=== PATIENT | female | born 1965 | race Caucasian/White ===

== ENCOUNTER 2016-03-12 12:13 | Inpatient (IN) | payer MEDICARE, OTHER ==
[~2016-03-12] VITALS: Ht 162.6 cm; Wt 112.0 kg
[~2016-03-12 12:13] MED LIST: ACET-2047 GTB; AMIO200T2 GTB; BUME1TAB18 GTB; CEFE1FRO IV; DOCU-144 GTB; DULR PR; ENAL2.5T GTB; EPOE40002 SC; FLEETPED PR; FOLI-49 GTB; HEP30MU30 IJ; HYDR-906 GTB; LACT1CAP5 GTB; LEVEM SC; LEVO88TA3 GTB; LORA1TAB GTB; MAGN400O4 GTB; MULT-552 GTB; NOVO3I SC; PANT40TA3 GTB; POLY15DR42 BOTH EYES; SENN-53 GTB; TRAM-40 GTB
[2016-03-12] MEDS ORDERED: LISI2.5T59 GTB (12:42)
--- NOTE | 2016-03-12 13:19 | RADRPT ---
PROCEDURE: XR Chest AP portable CLINICAL INDICATION: Abdominal pain TECHNIQUE: An AP portable radiograph of the chest was submitted. COMPARISON: 01/04/2016 FINDINGS: Support Hardware: The tracheostomy tube remains in place. The right upper extremity PICC catheter is no longer identified. Cardiovascular: The ICD generator and leads are stable and positioning. The heart remains moderatel y enlarged and the pulmonary vasculature again appears congested. Lung Leyva: Alveolar infiltrates are again seen to extend diffusely through the lung leyva bilater ally with relative sparing of the right upper lobe, unchanged. Pleural Spaces: No pneumothorax or pleural effusion is identified. Osseous Structures: The osseous structures appear intact. Soft Tissues: The soft tissues appear generous. IMPRESSION: 1. The tracheostomy tube is stable in position on the right upper extremity PICC catheter has been removed. 2. The AICD generator and leads are stable in positioning. 3. Persistent cardiomegaly with CHF and pulmonary edema, unchanged. Physician Armond Date Time Electronically viewed and signed by Physician Armond on 03/12/2016 13:18 /
[2016-03-12 13:22] LABS: BASOPHILS % 0.2 % (0.0-2.0); EOSINOPHILS # 0.7 10^3/ul (0.0-0.5); EOSINOPHILS % 9.7 % (0.0-7.0); HEMATOCRIT 27.4 % (37.0-47.0); HEMOGLOBIN 8.9 g/dl (12.0-16.0); LYMPHOCYTES # 0.8 10^3/ul (0.8-2.9); LYMPHOCYTES % 10.6 % (15.0-51.0); MEAN CORPUSCULAR HEMOGLOBIN 29.2 pg (29.0-33.0); MEAN CORPUSCULAR HGB CONC 32.3 g/dl (32.0-37.0); MEAN CORPUSCULAR VOLUME 90.5 fl (82.0-101.0); MEAN PLATELET VOLUME 7.4 fl (7.4-10.4); MONOCYTE # 0.4 10^3/ul (0.3-0.9); MONOCYTES % 5.5 % (0.0-11.0); NEUTROPHIL # 5.4 10^3/ul (1.6-7.5); PLATELET COUNT 370 10^3/UL (140-440); RED BLOOD COUNT 3.03 10^6/ul (4.20-5.40); RED CELL DISTRIBUTION WIDTH 19.8 % (11.5-14.5); UNCORRECTED WBC 7.3 10^3/ul (4.8-10.8); WHITE BLOOD COUNT 7.3 10^3/ul (4.8-10.8)
[2016-03-12 13:28] LABS: ALBUMIN 3.1 g/dl (3.3-4.9); CHLORIDE 89 mmol/L (97-110); SODIUM 133 mmol/L (135-144)
[2016-03-12 13:29] LABS: POTASSIUM 5.4 mmol/L (3.5-5.1)
[2016-03-12 13:30] LABS: CREATININE 0.55 mg/dl (0.44-1.00)
[2016-03-12] MEDS ORDERED: FUROSEMIDE 40 MG INJ IV ONE ×2 (13:30→23:50)
[2016-03-12 13:31] LABS: ALANINE AMINOTRANSFERASE 17 IU/L (13-69); ALBUMIN/GLOBULIN RATIO 0.68; ALKALINE PHOSPHATASE 130 IU/L (42-121); ANION GAP 13 (8-16); ASPARTATE AMINO TRANSFERASE 25 IU/L (15-46); BILIRUBIN,INDIRECT 0.2 mg/dl (0-1.1); BILIRUBIN,TOTAL 0.2 mg/dl (0.2-1.3); BLOOD UREA NITROGEN 82 mg/dl (7-20); CALCIUM 9.1 mg/dl (8.4-10.2); CARBON DIOXIDE 36 mmol/L (21-31); GLUCOSE 125 mg/dl (70-220); TOTAL PROTEIN 7.6 g/dl (6.1-8.1)
[2016-03-12 13:35] LABS: CONDITION 1; LH ANALYZER COMMENTS 1
[2016-03-12 13:38] LABS: INR 1.16; PROTIME 14.8 Sec (12.2-14.2); PT RATIO 1.2
[2016-03-12 13:52] LABS: TROPONIN-I < 0.012 ng/ml (0.00-0.12)
[2016-03-12] MEDS ORDERED: FUROSEMIDE 20 MG TAB PO ONE (14:00)
--- NOTE | 2016-03-12 14:55 | RADRPT ---
PROCEDURE: US Abdomen limited . CLINICAL INDICATION: Ascites TECHNIQUE: Multiple real-time images were acquired of the patient's abdomen utilizing a high resol ution transducer. COMPARISON: Ultrasound-guided paracentesis from 01/01/2016 FINDINGS: There is a small amount of ascites, not enough for paracentesis. RPTAT: AA IMPRESSION: Small amount of ascites. Shamar Hernandez Physician Date Time Electronically viewed and signed by Shamar Hernandez Physician on 03/12/2016 14:55 /
[2016-03-12 15:20] LABS: BARBITURATES NEGATIVE (NEGATIVE); BENZODIAZEPINES NEGATIVE (NEGATIVE); CANNABINOIDS NEGATIVE (NEGATIVE); COCAINE NEGATIVE (NEGATIVE); OPIATES NEGATIVE (NEGATIVE)
[2016-03-12] MEDS ORDERED: LIDOCAINE 1% (MPF) 5 ML VIAL ONE (15:44)
--- NOTE | 2016-03-12 15:49 | RADRPT ---
PROCEDURE: Ultrasound guided paracentesis. CLINICAL INDICATION: Ascites and shortness of breath. COMPARISON: No prior studies are available for comparison. TECHNIQUE: The risks, benefits, and alternatives were explained to the patient, including but not limited to bl eeding, infection, pain, visceral or vascular damage, shock, and . The patient understood the risks and the alternatives and wished to proceed with the procedure. Informed written consent was o btained. A procedural time out was performed. The patient's name, date of , and procedure to b e performed were verified. Utilizing ultrasound guidance, optimal location for entry to the peritoneal cavity was ascertained. The overlying skin was prepped and draped in the usual sterile fashion. Approximately 10 ml of 1% Xylocaine was injected locally for pain control. Using ultrasound guidance, an 8 Yoruba catheter wa s introduced into the peritoneal cavity in the left lower quadrant without difficulty. FINDINGS: Initial images demonstrate ascites. Approximately 5.75 liters of serous fluid was aspirated and dis carded. The patient tolerated the procedure well without complication. IMPRESSION: 1. Successful ultrasound-guided paracentesis. RPTAT: QQ .Nehemias Garcia MD, Date Time Electronically viewed and signed by .Nehemias Garcia MD, MD on 03/12/2016 15:48 .R/
[2016-03-12] MEDS ORDERED: SOD CHLORIDE 0.9% 500 ML IV ONE (18:00)
--- NOTE | 2016-03-12 18:36 | ERA ---
ER Documentation Chief Complaint Date/Time DATE: 03/12/16 TIME: 18:15 Chief Complaint BIB BLS FOR ASCITES HPI 50-year-old woman brought in by EMS from [facility] for increasing abdominal distention. I spoke to the patient's PMD Dr. Bakari Ortiz who stated she has been losing protein and albumin and has been slowly developing anasarca and ascites, and will probably require paracentesis. He has also been administering larger doses of furosemide to help with her ascites so she has become somewhat dehydrated and has had increasing BUN levels she has a history of mechanical ventilator dependent chronic respiratory failure with a tracheostomy tube. She has had no fevers or chills, no chest pain, no vomiting or diarrhea, no melena or blood per rectum. ROS All systems reviewed and are negative except as per history of present illness. Medications Home Meds Reported Medications Lisinopril* (Lisinopril*) 2.5 Mg Tablet, 2.5 MG GTB BID, #30 TAB HOLD FOR SBP<110 OR HR<60 03/12/16 Sennosides* (Senna Lax*) 8.6 Mg Tablet, 2 TAB GTB QHS, TAB 01/04/16 Acetaminophen* (Acetaminophen*) 650 Mg Tablet, 650 MG GTB Q4 Y for PAIN AND OR ELEVATED TEMP, #30 TAB 01/04/16 Tramadol Hcl* (Ultram*) 50 Mg Tablet, 50 MG GTB Q4 Y for PAIN, TAB 01/04/16 Insulin Detemir (Levemir) 100 Unit/1 Ml Vial, 18 UNIT SC QHS, VIAL 01/04/16 Insulin Aspart* (Novolog Insulin Pen*) 100 Unit/Ml Soln, 0 SC .SLIDING SCALE Q6 , EA 01/04/16 Pantoprazole* (Protonix*) 40 Mg Tablet.dr, 40 MG GTB DAILY, TAB 01/04/16 Levothyroxine Sodium* (Levothyroxine Sodium*) 88 Mcg Tablet, 88 MCG GTB BEFORE BREAKFAST, #30 TAB 01/04/16 Lactobacillus Acidophilus (Acidophilus) 1 Each Capsule, 1 EACH GTB BID, CAP 01/04/16 Bumetanide* (Bumetanide*) 1 Mg Tablet, 1 MG GTB BID, TAB 01/04/16 Docusate Sodium* (Colace*) 100 Mg Capsule, 200 MG GTB QHS Y for CONSTIPATION, # 30 CAP 12/28/15 Bisacodyl* (Bisacodyl*) 10 Mg Supp, 10 MG GA Q24H Y for PRN, SUPP 12/28/15 Sod Phosphate/Sod Biphosphate* (Fleet* Enema Pediatric) 66.6 Ml Soln, 66.6 ML GA DAILY Y for CONSTIPATION, ENEMA 12/28/15 Folic Acid* (Folic Acid*) 1 Mg Tablet, 1 MG GTB DAILY, TAB 12/28/15 Magnesium Hydroxide* (Milk Of Magnesia*) 400 Mg/5 Ml Oral.susp, 30 ML GTB DAILY Y for CONSTIPATION, ML HOLD FOR LBM QDPRN 12/28/15 Hydrocodone/Acetaminophen ([place] 5-325 Tablet) 1 Each Tablet, 1 EACH GTB Q6 Y for PAIN LEVEL 6-10, TAB 12/28/15 Heparin Sod (Porcine) (Heparin) 1,000 Unit/Ml Soln, 5000 UNIT IJ Q12 11/15/15 Epoetin sophie* (Epogen*) 4,000 Unit/1 Ml Vial, 5000 UNIT SC [place]WEDFRI, VIAL HOLD FOR HGB ABOVE 10.5 10/30/15 Amiodarone Hcl* (Amiodarone Hcl*) 200 Mg Tablet, 200 MG GTB DAILY, #30 TAB HOLD FOR SBP<110 OR HR<60 10/30/15 Artificial Tears* (Artificial Tears* Ophth) 15 ml Opht, 2 DROP BOTH EYES Q4H WHILE AWAKE Y for DRY EYES, EA 03/05/15 Lorazepam* (Lorazepam*) 1 Mg Tablet, 1 MG GTB Q8 Y for ANXIETY, #60 TAB 03/05/15 Multivitamins* (Once Daily*) 1 Tab Tablet, 1 TAB GTB DAILY, TAB 08/14/14 Discontinued Reported Medications Enalapril Maleate* (Enalapril Maleate*) 2.5 Mg Tablet, 2.5 MG GTB DAILY, TAB HOLD FOR SBP<100 OR HR<60 10/30/15 Discontinued Scripts Cefepime Hcl/Dextrose, Iso-Osm (Cefepime 1 Gm Injection) 1 Gm/50 Ml Froz.piggy, 1 GM IV Q12 for 14 Days Prov:SOUZASHONDA MATHUR NP 01/03/16 Allergies Allergies: Coded Allergies: No Known Allergies (Verified Allergy, Unknown, 12/28/15) PMhx/Soc Atrial fibrillation, diabetes mellitus, hypertension, pacemaker, congestive heart failure with a left ventricular ejection fraction of 25%, hypothyroidism, diffuse muscular weakness and bedbound state, anemia, recurrent UTIs, muscular dystrophy, chronic respiratory failure requiring mechanical ventilator and tracheostomy History of Surgery: Yes (trach g- tube) Anesthesia Reaction: No Hx Neurological Disorder: Yes Hx Respiratory Disorders: Yes (trach to vent, pna) Hx Cardiac Disorders: Yes (angina, htn, cad, heart fail) Hx Psychiatric Problems: Yes (anxiety) Hx Miscellaneous Medical Probl: Yes (dm, GERD, gastroperesis, muscular dystrophy) Hx Alcohol Use: No Hx Substance Use: No Hx Tobacco Use: No Smoking Status: Never smoker FmHx Family History: No diabetes Physical Exam Vitals Vital Signs Date Time Temp Pulse Resp B/P Pulse Ox O2 Delivery O2 Flow Rate FiO2 03/12/16 17:47 18 91/61 Mechanical Ventilator 03/12/16 17:15 76 21 99 40 03/12/16 15:10 75 21 100 40 03/12/16 12:31 97.8 60 18 96/62 100 03/12/16 12:30 59 21 97 40 Physical Exam GENERAL: Well-developed, dehydrated appearing woman with a tracheostomy in place , afebrile HEENT: Dry mucous membranes, pink conjunctiva, no cervical spine tenderness or step-off deformities, no goiter, no jaundice or icterus, extraocular movements intact without pain. No submandibular induration, and no pharyngeal erythema NEURO: Alert and oriented 3, she has paresis of the lower extremities and left upper extremity paralysis, no facial asymmetry, pupils equal round reactive to light. Sensation intact distally Strength 5/5 in upper and lower extremities bilaterally. Able to answer simple questions and follow simple commands CARDIAC: Regular rate and rhythm, no murmurs rubs or gallops LUNGS: Clear bilaterally no wheezing crackles or stridor ABDOMEN: Distended protuberant abdomen without guarding, rigidity, or tenderness. Normoactive bowel sounds SKIN: Warm and dry to touch, no abrasions, contusions, or hematomas, no lacerations, no ecchymosis, no target lesions, and without ulcers EXTREMITIES: Patient has bilateral lower extremity 3+ pitting edema as well as anasarca, calves are bilaterally symmetrical, no Homans sign, no popliteal cord sign. Distal pulses equal and bilateral PSYCH: Normal affect without agitation or irritability Result Diagram: 03/12/16 1310 03/12/16 1258 Results 24 hrs Laboratory Tests Test 03/12/16 12:58 03/12/16 13:10 03/12/16 14:10 Alanine Aminotransferase (ALT/SGPT) 17IU/L Albumin 3.1g/dl Albumin/Globulin Ratio 0.68 Alkaline Phosphatase 130IU/L Anion Gap 13 Aspartate Amino Transf (AST/SGOT) 25IU/L Blood Urea Nitrogen 82mg/dl Calcium Level 9.1mg/dl Carbon Dioxide Level 36mmol/L Chloride Level 89mmol/L Creatinine 0.55mg/dl Direct Bilirubin 0.00mg/dl Globulin 4.50g/dl Glucose Level 125mg/dl Indirect Bilirubin 0.2mg/dl Lipase 56U/L Potassium Level 5.4mmol/L Sodium Level 133mmol/L Total Bilirubin 0.2mg/dl Total Protein 7.6g/dl Troponin I < 0.012ng/ml Basophils # 0.010^3/ul Basophils % 0.2% Blood Morphology Comment Eosinophils # 0.710^3/ul Eosinophils % 9.7% Hematocrit 27.4% Hemoglobin 8.9g/dl INR International Normalized Ratio 1.16 Lymphocytes # 0.810^3/ul Lymphocytes % 10.6% Mean Corpuscular Hemoglobin 29.2pg Mean Corpuscular Hemoglobin Concent 32.3g/dl Mean Corpuscular Volume 90.5fl Mean Platelet Volume 7.4fl Monocytes # 0.410^3/ul Monocytes % 5.5% Neutrophils # 5.410^3/ul Neutrophils % 74.0% Nucleated Red Blood Cells # 0.010^3/ul Nucleated Red Blood Cells % 0.0/100WBC Platelet Count 45164^3/UL Prothrombin Time 14.8Sec Prothrombin Time Ratio 1.2 Red Blood Count 3.0310^6/ul Red Cell Distribution Width 19.8% White Blood Count 7.310^3/ul Urine Amphetamines Screen NEGATIVE Urine Barbiturates NEGATIVE Urine Benzodiazepines Screen NEGATIVE Urine Cannabinoids NEGATIVE Urine Cocaine Screen NEGATIVE Urine Opiates Screen NEGATIVE Current Medications Medications (Trade) Dose Ordered Sig/Joseph Route PRN Reason Start Time Stop Time Status Last Admin Dose Admin Furosemide (Lasix) 80 mg ONCE ONCE IV 03/12/16 13:30 03/12/16 13:39 DC Furosemide (Lasix) 80 mg ONCE ONCE PO 03/12/16 14:00 03/12/16 14:01 DC 03/12/16 13:54 Lidocaine 5 ml 5 ml STK-MED ONCE .ROUTE 03/12/16 15:44 03/12/16 15:45 DC Sodium Chloride (NS) 500 ml @ 500 mls/hr Q1H ONCE IV 03/12/16 18:00 03/12/16 18:59 03/12/16 17:50 Procedures/MDM IV line was established patient was placed on director of diagnostic imaging rhythm strip revealed a paced rhythm at 60 bpm, wide complex. Patient was afebrile. For abdominal distention and anasarca I administered furosemide 80 mg p.o. 1 view chest x-ray performed, read by me there is cardiomegaly with a pacemaker placed in the left chest, leads intact, bilateral pulmonary vascular congestion , no acute infiltrates, no pneumothorax. EKG performed, read by me revealed a paced wide complex rhythm at 60 bpm, left axis deviation, with a prolonged QT interval of 502 ms, no concerning ST elevations or depressions noted. Ultrasound-guided paracentesis was performed removing about 6 L of fluid. Ultrasound-guided PICC line placement was attempted in the right upper extremity but unsuccessful. Small peripheral line was placed to the left hand. I administered 500 cc normal saline intravenously for dehydration, although further transfusion with albumin and more IV fluids for dehydration will be deferred to inpatient team. CBC revealed anemia with a hemoglobin of 8.9, electrolytes were abnormal with hyperkalemia 5.4 and dehydration revealing a BUN/creatinine of 82/0.6, liver function tests revealed low albumin at 3.1. Critical Care: Time: 40 minutes, this was time separate from other procedures. Treatments/Evaluations: Close monitoring and treatment of unstable vital signs, cardiorespiratory, and neurologic status, while maintaining tight balance of fluid, respiratory, and cardiac interventions. Patient will be admitted for gentle IV hydration and intravenous replacement of protein/albumin. I also suspect congestive heart failure which is decompensated at this time. Departure Diagnosis: Primary Impression: CHF (congestive heart failure) Qualified Code: I50.21 - Acute systolic congestive heart failure Additional Impressions: Hypoalbuminemia Dehydration Respiratory failure Qualified Code: J96.01 - Acute respiratory failure with hypoxia and hypercapnia Anasarca Hyperkalemia Ascites Qualified Code: R18.8 - Other ascites Condition: Fair JAIR CLARK MD Mar 12, 2016 18:26
[2016-03-12] MEDS ORDERED: ACETAMINOPHEN 650MG/20.3ML CUP GTB PRN (20:00)
[2016-03-12] MEDS ORDERED: ONDANSETRON 4 MG INJ IV PRN (20:00)
[2016-03-12] MEDS ORDERED: BISACODYL 10 MG SUPP PR PRN (20:00)
[2016-03-12] MEDS ORDERED: morphine 2 MG INJ IV PRN (20:00)
[2016-03-12] MEDS ORDERED: NA PHOSPHATE/BIPHOS 66.6 ML ENEMA PR PRN (20:00)
[2016-03-12] MEDS ORDERED: traMADol 50 MG TAB GTB PRN (20:00)
[2016-03-12] MEDS ORDERED: MAGNESIUM HYDROXIDE 30ML CUP GTB PRN (20:00)
[2016-03-12] MEDS ORDERED: LORAZEPAM 1 MG TAB GTB PRN (20:00)
[2016-03-12] MEDS ORDERED: HYDROCODONE/APAP (5/325) TAB GTB PRN (20:00)
[2016-03-12] MEDS ORDERED: ARTIFICIAL TEARS 15 ML OPH BOTH EYES PRN (20:00)
[2016-03-12] MEDS ORDERED: DOCUSATE SODIUM 10 MG/ML (10ML CUP) GTB PRN (20:00)
[2016-03-12] MEDS ORDERED: NACL 0.9% 3 ML SYG IV SCH (20:00)
[2016-03-12] MEDS ORDERED: HEPARIN 1000 UNITS/ML 30 ML INJ SC SCH (21:00)
--- NOTE | 2016-03-12 21:34 | RADRPT ---
PROCEDURE: Chest x-ray CLINICAL INDICATION: PICC LINE PLACEMENT TECHNIQUE: Single frontal view COMPARISON: 03/12/2016 at 01:03 p.m. FINDINGS: The cardiomediastinal silhouette is partially obscured. There is extensive bilateral interstitial t hickening and patchy air space opacification. There is a left chest pacemaker AICD. There is a tra cheostomy in place. There is a right PICC line with the tip partially obscured by overlying pacemak er wires, appearing to extend to or slightly past the cavoatrial junction region. There are probabl e small bilateral pleural effusions. There is no pneumothorax. Osseous structures appear unremarkable. IMPRESSION: 1. Extensive bilateral pulmonary edema and/or infiltrates. The appearance is similar from prior ex amination. Probable small bilateral pleural effusions. 2. Tracheostomy and left pacemaker AICD in place. A right PICC line is placed, which appears to ex tend to or just past the cavoatrial junction.. RPTAT: HBST .Ayaan Sanders MD, MD Date Time Electronically viewed and signed by .Ayaan Sanders MD, on 03/12/2016 21:34 .T/
--- NOTE | 2016-03-12 21:59 | HP ---
DATE OF ADMISSION: 03/12/2016 PROFESSOR OF GENETICS: Liam Calixto MD/[employer]. CHIEF COMPLAINT: Abdominal distention and ascites. HISTORY OF PRESENT ILLNESS: This is a 50-year-old female, who is known to me from her previous hosp italization with a past medical history of quadriplegia, vent-dependent respiratory failure, anemia, ascites, dysphagia status post PEG tube feeding, hypertension, muscular dystrophy, anxiety, diabete s mellitus, GERD, cardiomyopathy, ejection fraction 30% to 35%, who resides at a [facility], and was found to have abdominal discomfort and distention, and therefore was transferred to [facility] where abdominal ultrasound was obtained, which showed there was a small amount of ascites; not enough for paracentesis. The patient was found to have albumin 3.1, so dium 133, potassium 5.4, chloride 89, and she is being admitted for diuresis and abdominal distentio n. At this time, the patient denies having any chest pain, shortness of breath, or any other discom fort. PAST MEDICAL AND SURGICAL HISTORY: As above per HPI. MEDICATIONS 1. Tylenol. 2. Amiodarone 3. Bisacodyl. 4. Bumex. 5. Colace. 6. Epogen. 7. Artificial tears. 8. Folic acid. 9. Procrit. 10. Rocklin. 11. NovoLog. 12. Levemir. 13. Probiotic. 14. Levothyroxine. 15. Lisinopril. 16. Lorazepam 17. Milk of magnesia. 18. Multivitamin. 19. Protonix. 10. Senna. 11. Fleet's enema. 12. Tramadol. ALLERGIES: NO KNOWN DRUG ALLERGIES. FAMILY HISTORY: Noncontributory. SOCIAL HISTORY: She resides at a long term [facility]. REVIEW OF SYSTEMS: As above per HPI, otherwise 12 review of systems have been found to be negative. PHYSICAL EXAMINATION: VITAL SIGNS: Temperature 97.8, pulse 60, respirations 12, blood pressure 103/71, oxygen 100% in yash m air. GENERAL APPEARANCE: Patient is lying in bed comfortably without any distress. She is awake, alert, oriented. She is able to answer my questions by nodding her head. EYES AND ENT: Conjunctivae and lids are normal. Pupils are normal. Extraocular normal. Hearing g rossly normal. Oral mucosa is dry. NECK: Supple. Trach in place. CARDIOVASCULAR: Normal S1, S2. Regular rhythm and rate. No murmur, no bruits, no edema. LUNGS: Decreased breath sounds, bilateral lower lung field. ABDOMEN: Contour is distended. No sign of ascites. Bowel sounds are distant secondary to body hab itus. No guarding, no rebound. GENITOURINARY: Deferred. MUSCULOSKELETAL: Right lower extremity is flaccid. Upper extremities: The patient is 3/5. NEUROLOGIC: The patient is awake, alert. LABORATORY WORK AND IMAGING: WBC 7.3, hemoglobin 8.9, hematocrit 27.4, platelets 370,000. Sodium 1 33, potassium 5.4, chloride 89, bicarbonate 36, BUN 82, creatinine 0.55, glucose 125. LFTs all with in normal limits. ASSESSMENT AND PLAN: 1. Abdominal distention with questionable ascites, with minimal evidence of ascites on abdominal ul trasound. No plan for paracentesis. 2. Vent-dependent respiratory failure. Continue vent management, breathing treatment. 3. Anemia. Continue to monitor. Continue ferrous sulfate. 4. Anxiety. Continue lorazepam. 5. Essential hypertension. Continue lisinopril. 6. Gastroesophageal reflux disease. Continue PPI. 7. Hypothyroidism. Continue levothyroxine. 8. Diabetes mellitus. Continue Insulin sliding scale and Levemir. DISPOSITION: PEG tube feeding via diabetic source. We will continue to monitor patient closely. F urther recommendations, management, and treatment as per clinical course. Total amount of time was spent for evaluation of patient and admission workup, 40 minutes. Dictated By: OBI JIM/BETTY Conf#: [id number] DID#: [id number]
[2016-03-12 22:05] VITALS: RESP 19
[2016-03-12 22:10] VITALS: PULSE 59
[2016-03-12 22:34] VITALS: Ht 162.6 cm; Wt 112.0 kg
[2016-03-12 22:43] VITALS: BP 140/75; PULSE 70; RESP 20
[2016-03-12 23:27] VITALS: BP 92/54; RESP 20
[2016-03-13] VITALS (24 sets, daily range): BP systolic 90–103; BP diastolic 42–61; PULSE 59–65; RESP 18–20
[2016-03-13] MEDS ORDERED: DEXTROSE 50% 50 ML SYRINGE IV PRN ×2 (00:30)
[2016-03-13] MEDS ORDERED: GLUCAGON 1 MG INJ IM PRN (00:30)
[2016-03-13] MEDS ORDERED: GLUCOSE GEL 15 GRAM TUBE BUCCAL PRN (00:30)
[2016-03-13] MEDS ORDERED: GLUCOSE GEL 15 GRAM TUBE PO PRN ×2 (00:30)
[2016-03-13] MEDS: SENNA TAB GTB SCH ×2 (00:48→20:54)
[2016-03-13] MEDS: LISINOPRIL 5 MG TAB GTB SCH ×3 (00:49→20:54)
[2016-03-13] MEDS: INSULIN ASPART [NOVOLOG] 3 ML PEN SC SCH ×6 (00:54→21:00)
[2016-03-13] MEDS: ALBUMIN HUMAN 5% 250 ML IV SCH ×3 (01:28→13:29)
[2016-03-13] MEDS: INSULIN DETEMIR [LEVEMIR] 3ML CART SC SCH ×2 (01:29→20:57)
[2016-03-13] MEDS ORDERED: FUROSEMIDE 20 MG TAB PO SCH (06:00)
[2016-03-13] MEDS: LEVOTHYROXINE 88 MCG TAB GTB SCH (06:03)
[2016-03-13] MEDS: LANSOPRAZOLE 30 MG CAP GTB SCH (06:03)
[2016-03-13] MEDS: BUMETANIDE 1 MG TAB GTB SCH ×2 (06:03→18:42)
--- NOTE | 2016-03-13 08:04 | RADRPT ---
PROCEDURE: Ultrasound guidance for placement of needle in right upper extremity vein. CLINICAL INDICATION: PICC placement. TECHNIQUE: Limited sonography of the right upper extremity was performed. Ultrasound images were recorded and s tored in the patient's medical record. COMPARISON: Chest radiograph of the same day. FINDINGS: The ultrasound images demonstrate a patent right upper extremity vein. The PICC line was inserted by the PICC line nurse. IMPRESSION: 1. Ultrasound guidance for a needle placement in a right upper extremity vein. 2. The visualized right upper extremity vein is patent. RPTAT: UU .Sharif Iqbal MD, Date Time Electronically viewed and signed by .Sharif Iqbal MD, on 03/13/2016 08:03 .N/
[2016-03-13] MEDS: AMIODARONE 200 MG TAB GTB SCH (09:00)
[2016-03-13] MEDS: FOLIC ACID 1 MG TAB GTB SCH (09:34)
[2016-03-13] MEDS: LACTOBACILLUS CHEW TAB GTB SCH ×2 (09:34→20:54)
[2016-03-13] MEDS: MULTIVITAMINS THERAPEUTIC TAB GTB SCH (09:34)
[2016-03-13] MEDS: HEPARIN 5,000 UNIT/0.5 ML SYG SC SCH ×2 (09:49→20:57)
[2016-03-13] MEDS ORDERED: SOD CHLORIDE 0.9% 100 ML ONE (11:23)
--- NOTE | 2016-03-13 13:21 | CONS ---
Date/Time of Note Date/Time of Note DATE: 03/13/16 TIME: 13:20 Assessment/Plan Assessment/Plan Additional Assessment/Plan 50 yo Female with 1)Volume Overload, Anasarca, Ascites, S/p Large Volume Paracentesis 2) VDRF Hx of Tracheostomy 3) Combined Systolic and Diastolic Heart Failure, EF 30-35%, Hx of AICD 4) Mild Hyperkalemia 5) Mild Hyponatremia 6) Chronic Hypertension 7) Hypoalbuminemia 8) Pre- Renal Azotemia, Non oliguric 9) Anemia, Chronic Disease. Consultation Date/Type/Reason Admit Date/Time Mar 12, 2016 at 17:47 Date of Consultation: Mar 13, 2016 Type of Consultation: Nephrology Reason for Consultation Hyperkalemia, Volume Overload Referring Provider: OBI PEREZ MD Hx of Present Illness 50-year-old female with past medical history of quadriplegia, vent-dependent respiratory failure, anemia, ascites, dysphagia status post PEG tube feeding, Chronic hypertension, muscular dystrophy, anxiety, diabetes mellitus, GERD, cardiomyopathy, ejection fraction 30% to 35%, Volume Overload, Protein Calorie malnutrition, presenting from [facility] and found to have abdominal discomfort and distention. Pt is S/p Large Volume paracentensis on , approx 5.7 liters removed. Nephrology consulted by primary care physician for volume overload and hyperkalemia, Serum Potassium level 5.4. Constitutional: requiring O2 Respiratory: shortness of breath Cardiovascular: edema Past Medical History MEDICATIONS 1. Tylenol. 2. Amiodarone 3. Bisacodyl. 4. Bumex. 5. Colace. 6. Epogen. 7. Artificial tears. 8. Folic acid. 9. Procrit. 10. [place]. 11. NovoLog. 12. Levemir. 13. Probiotic. 14. Levothyroxine. 15. Lisinopril. 16. Lorazepam 17. Milk of magnesia. 18. Multivitamin. 19. Protonix. 10. Senna. 11. Fleet's enema. 12. Tramadol. ALLERGIES: NO KNOWN DRUG ALLERGIES. Medical History: congestive heart failure Past Surgical History Past Surgical Hx: other (Trach) Family History Significant Family History: no pertinent family hx Social History Alcohol Use: none Smoking Status: Never smoker Drug Use: none Exam/Review of Systems Vital Signs Vitals Vital Signs Date Time Temp Pulse Resp B/P Pulse Ox O2 Delivery O2 Flow Rate FiO2 03/13/16 12:45 59 03/13/16 11:15 18 100 35 03/13/16 11:02 98.5 94/50 03/12/16 22:43 Mechanical Ventilator Intake and Output 03/12/16 03/12/16 03/13/16 14:59 22:59 06:59 Intake Total 750 ml Output Total 4000 ml Balance -3250 ml Exam Constitutional: alert, oriented, No distress Head: normocephalic Eyes: EOMI, No icteric ENMT: mucosa pink and moist, other (Trach to vent) Neck: jvd Respiratory: crackles/rales, No diminished breath sounds, No labored breathing Cardiovascular: edema, regular rate and rhythm Gastrointestinal: ascites, soft, No rebound or guarding, No tender Genitourinary - Female: other (Matthew) Extremities: pitting pedal edema Neurological: nl mental status, No confused, No lethargic Skin: No diaphoresis Results PROCEDURE: XR Chest AP portable CLINICAL INDICATION: Abdominal pain TECHNIQUE: An AP portable radiograph of the chest was submitted. COMPARISON: 01/04/2016 FINDINGS: Support Hardware: The tracheostomy tube remains in place. The right upper extremity PICC catheter is no longer identified. Cardiovascular: The ICD generator and leads are stable and positioning. The heart remains moderately enlarged and the pulmonary vasculature again appears congested. Lung Pryor: Alveolar infiltrates are again seen to extend diffusely through the lung pryor bilaterally with relative sparing of the right upper lobe, unchanged. Pleural Spaces: No pneumothorax or pleural effusion is identified. Osseous Structures: The osseous structures appear intact. Soft Tissues: The soft tissues appear generous. IMPRESSION: 1. The tracheostomy tube is stable in position on the right upper extremity PICC catheter has been removed. 2. The AICD generator and leads are stable in positioning. 3. Persistent cardiomegaly with CHF and pulmonary edema, unchanged. Physician Armond Date Time Electronically viewed and signed by Physician Armond on 03/12/2016 13:18 Result Diagram: 03/12/16 1310 03/12/16 1258 Results 24 hrs Laboratory Tests Test 03/12/16 14:10 03/12/16 19:00 03/13/16 00:45 03/13/16 04:43 Urine Amphetamines Screen NEGATIVE Urine Barbiturates NEGATIVE Urine Benzodiazepines Screen NEGATIVE Urine Cannabinoids NEGATIVE Urine Cocaine Screen NEGATIVE Urine Opiates Screen NEGATIVE Ammonia 22 Bedside Glucose 116 83 Test 03/13/16 08:21 03/13/16 12:49 Bedside Glucose 73 74 Medications Medications Current Medications Acetaminophen (Tylenol Liquid) 650 mg Q4 PRN GTB PAIN AND OR ELEVATED TEMP; Start 03/12/16 at 20:00 Amiodarone HCl (Cordarone) 200 mg DAILY GTB ; Start 03/13/16 at 09:00 Bisacodyl (Dulcolax Supp) 10 mg Q24H PRN [place] PRN; Start 03/12/16 at 20:00 Docusate Sodium (Colace Liquid Cup) 200 mg QHS PRN GTB CONSTIPATION; Start at 20:00 Folic Acid (Folic Acid) 1 mg DAILY GTB Last administered on 03/13/16 09:34; Admin Dose 1 MG; Start 03/13/16 at 09:00 Acetaminophen/ Hydrocodone Bitart ([place] (5/325)) 1 tab Q6 PRN GTB PAIN LEVEL 6 -10; Start 03/12/16 at 20:00 Lisinopril (Zestril) 2.5 mg BID GTB Last administered on 03/13/16 00:49; Admin Dose 2.5 MG; Start 03/12/16 at 23:45 Lorazepam (Ativan) 1 mg Q8 PRN GTB ANXIETY; Start 03/12/16 at 20:00 Magnesium Hydroxide (Milk Of Mag) 30 ml DAILY PRN GTB CONSTIPATION; Start 03/12 at 20:00 Multivitamins Therapeutic (Theragran) 1 tab DAILY GTB Last administered on 03/13 09:34; Admin Dose 1 TAB; Start 03/13/16 at 09:00 Lansoprazole (Prevacid) 30 mg DAILY@06 GTB Last administered on 03/13/16 06:03 ; Admin Dose 30 MG; Start 03/13/16 at 06:00 Senna (Senokot) 2 tab QHS GTB Last administered on 03/13/16 00:48; Admin Dose 2 TAB; Start 03/12/16 at 21:00 Sodium Biphosphate/ Sodium Phosphate (Fleet Enema Pediatric) 66.6 ml DAILY PRN [place] CONSTIPATION; Start 03/12/16 at 20:00 Tramadol HCl (Ultram) 50 mg Q4H PRN GTB PAIN; Start 03/12/16 at 20:00 Insulin Detemir (Levemir) 18 unit QHS SC Last administered on 03/13/16 01:29; Admin Dose 18 UNIT; Start 03/13/16 at 00:30 Lactobacillus Acidoph/Bulgaricus (Floranex) 1 tab BID GTB Last administered on 03/13/16 09:34; Admin Dose 1 TAB; Start 03/13/16 at 09:00 Ondansetron HCl (Zofran Inj) 4 mg Q6H PRN IV NAUSEA AND/OR VOMITING; Start at 20:00 Morphine Sulfate (morphine) 1 mg Q4H PRN IV PAIN LEVEL 7-10; Start 03/12/16 at 20:00 Insulin Aspart (Novolog Insulin Pen) NOVOLOG *MILD* ALGORI... Q4 SC ; Start at 01:00 IV Flush (NS 10 ml) 10 ml PRN PRN IV IV PROTOCOL; Start 03/12/16 at 22:00 Miscellaneous Information 1 ea NOTE XX ; Start 03/13/16 at 00:30 Glucose (Glutose) 15 gm Q15M PRN PO DECREASED GLUCOSE; Start 03/13/16 at 00:30 Glucose (Glutose) 22.5 gm Q15M PRN PO DECREASED GLUCOSE; Start 03/13/16 at 00: 30 Dextrose (D50w Syringe) 25 ml Q15M PRN IV DECREASED GLUCOSE; Start 03/13/16 at 00:30 Dextrose (D50w Syringe) 50 ml Q15M PRN IV DECREASED GLUCOSE; Start 03/13/16 at 00:30 Glucagon (Glucagen) 1 mg Q15M PRN IM DECREASED GLUCOSE; Start 03/13/16 at 00:30 Glucose (Glutose) 15 gm Q15M PRN BUCCAL DECREASED GLUCOSE; Start 03/13/16 at 00 :30 Miscellaneous Information (*Order Clarification Bulletin) MEDICATION REQUIRES CLARIFICATI... Q8H XX ; Start 03/13/16 at 00:30 Heparin Sodium (Porcine) (Heparin (5000 Units/0.5 ml)) 5,000 unit Q12 SC Last administered on 03/13/16t 09:49; Admin Dose 5,000 UNIT; Start 03/13/16 at 09:00 Epoetin Kt (Epogen (Non Esrd/Non Oncology)) 2,000 units MONWEDFRI@17 SC ; Start 03/13/16 at 17:00 Epoetin Kt (Epogen (Non Esrd/Non Oncology)) 3,000 units MONWEDFRI@17 SC ; Start 03/13/16 at 17:00 Procedures Procedures PROCEDURE: Ultrasound guided paracentesis. CLINICAL INDICATION: Ascites and shortness of breath. COMPARISON: No prior studies are available for comparison. TECHNIQUE: The risks, benefits, and alternatives were explained to the patient, including but not limited to bleeding, infection, pain, visceral or vascular damage, shock , and . The patient understood the risks and the alternatives and wished to proceed with the procedure. Informed written consent was obtained. A procedural time out was performed. The patient's name, date of , and procedure to be performed were verified. Utilizing ultrasound guidance, optimal location for entry to the peritoneal cavity was ascertained. The overlying skin was prepped and draped in the usual sterile fashion. Approximately 10 ml of 1% Xylocaine was injected locally for pain control. Using ultrasound guidance, an 8 [place] catheter was introduced into the peritoneal cavity in the left lower quadrant without difficulty. FINDINGS: Initial images demonstrate ascites. Approximately 5.75 liters of serous fluid was aspirated and discarded. The patient tolerated the procedure well without complication. IMPRESSION: 1. Successful ultrasound-guided paracentesis. RPTAT: QQ .Nehemias Garcia MD, MD Date Time Electronically viewed and signed by .Nehemias Garcia MD, MD on 03/12/2016 15:48 PROSPER DALY MD Mar 13, 2016 13:21
--- NOTE | 2016-03-13 14:54 | PN ---
Date/Time of Note Date/Time of Note DATE: 03/13/16 TIME: 14:52 Assessment/Plan VTE Prophylaxis VTE Prophylaxis Intervention: SCD's Lines/Catheters IV Catheter Type (from Nrs): PICC Line Central line still needed: Yes Assessment/Plan Chief Complaint/Hosp Course ASSESSMENT AND PLAN: 1. Abdominal distention with questionable ascites, with minimal evidence of ascites on abdominal ultrasound. No plan for paracentesis. 2. Vent-dependent respiratory failure. Continue vent management, breathing treatment. 3. Anemia. Continue to monitor. Continue ferrous sulfate. 4. Anxiety. Continue lorazepam. 5. Essential hypertension. Continue lisinopril. 6. Gastroesophageal reflux disease. Continue PPI. 7. Hypothyroidism. Continue levothyroxine. 8. Diabetes mellitus. Continue Insulin sliding scale and Levemir. Feeding: PEG tube feeding via diabetic source. We will continue to monitor patient closely. Further recommendations, management, and treatment as per clinical course. Plan to discharge back to senior living facility tomorrow Problems: Subjective 24 Hr Interval Summary Free Text/Dictation Patient denies any chest pain or shortness of breath Tolerating PEG tube feeding No nausea or vomiting Exam/Review of Systems Vital Signs Vitals Vital Signs Date Time Temp Pulse Resp B/P Pulse Ox O2 Delivery O2 Flow Rate FiO2 03/13/16 12:45 59 03/13/16 11:15 18 100 35 03/13/16 11:02 98.5 94/50 03/12/16 22:43 Mechanical Ventilator Intake and Output 03/12/16 03/12/16 03/13/16 15:00 23:00 07:00 Intake Total 750 ml Output Total 4000 ml Balance -3250 ml Exam General: The patient is well-developed, Not in acute distress. HEENT: Atraumatic, normocephalic. The pupils are equal and round . Neck: Trach in place Chest: Normal expansion of the thorax during inspiration Lungs: Clear to auscultation bilaterally Heart: Normal S1-S2, Regular rhythm and rate. Abdomen: Soft , nontender, minimal distention, bowel sounds are present. Extremities: Muscle wasting, no edema no cyanosis Neurologic: Normal mental status,The patient is awake, alert and oriented . Results Result Diagram: 03/12/16 1310 03/12/16 1258 Results 24 hrs Laboratory Tests Test 03/12/16 19:00 03/13/16 00:45 03/13/16 04:43 03/13/16 08:21 Ammonia 22 Bedside Glucose 116 83 73 Test 03/13/16 12:49 Bedside Glucose 74 Medications Medications Current Medications Acetaminophen (Tylenol Liquid) 650 mg Q4 PRN GTB PAIN AND OR ELEVATED TEMP; Start 03/12/16 at 20:00 Amiodarone HCl (Cordarone) 200 mg DAILY GTB ; Start 03/13/16 at 09:00 Bisacodyl (Dulcolax Supp) 10 mg Q24H PRN [place] PRN; Start 03/12/16 at 20:00 Docusate Sodium (Colace Liquid Cup) 200 mg QHS PRN GTB CONSTIPATION; Start at 20:00 Folic Acid (Folic Acid) 1 mg DAILY GTB Last administered on 03/13/16 09:34; Admin Dose 1 MG; Start 03/13/16 at 09:00 Acetaminophen/ Hydrocodone Bitart ([place] (5/325)) 1 tab Q6 PRN GTB PAIN LEVEL 6 -10; Start 03/12/16 at 20:00 Lisinopril (Zestril) 2.5 mg BID GTB Last administered on 03/13/16 00:49; Admin Dose 2.5 MG; Start 03/12/16 at 23:45 Lorazepam (Ativan) 1 mg Q8 PRN GTB ANXIETY; Start 03/12/16 at 20:00 Magnesium Hydroxide (Milk Of Mag) 30 ml DAILY PRN GTB CONSTIPATION; Start 03/12 at 20:00 Multivitamins Therapeutic (Theragran) 1 tab DAILY GTB Last administered on 03/13 09:34; Admin Dose 1 TAB; Start 03/13/16 at 09:00 Lansoprazole (Prevacid) 30 mg DAILY@06 GTB Last administered on 03/13/16 06:03 ; Admin Dose 30 MG; Start 03/13/16 at 06:00 Senna (Senokot) 2 tab QHS GTB Last administered on 03/13/16 00:48; Admin Dose 2 TAB; Start 03/12/16 at 21:00 Sodium Biphosphate/ Sodium Phosphate (Fleet Enema Pediatric) 66.6 ml DAILY PRN [place] CONSTIPATION; Start 03/12/16 at 20:00 Tramadol HCl (Ultram) 50 mg Q4H PRN GTB PAIN; Start 03/12/16 at 20:00 Insulin Detemir (Levemir) 18 unit QHS SC Last administered on 03/13/16 01:29; Admin Dose 18 UNIT; Start 03/13/16 at 00:30 Lactobacillus Acidoph/Bulgaricus (Floranex) 1 tab BID GTB Last administered on 03/13/16 09:34; Admin Dose 1 TAB; Start 03/13/16 at 09:00 Ondansetron HCl (Zofran Inj) 4 mg Q6H PRN IV NAUSEA AND/OR VOMITING; Start at 20:00 Morphine Sulfate (morphine) 1 mg Q4H PRN IV PAIN LEVEL 7-10; Start 03/12/16 at 20:00 Insulin Aspart (Novolog Insulin Pen) NOVOLOG *MILD* ALGORI... Q4 SC ; Start at 01:00 IV Flush (NS 10 ml) 10 ml PRN PRN IV IV PROTOCOL; Start 03/12/16 at 22:00 Miscellaneous Information 1 ea NOTE XX ; Start 03/13/16 at 00:30 Glucose (Glutose) 15 gm Q15M PRN PO DECREASED GLUCOSE; Start 03/13/16 at 00:30 Glucose (Glutose) 22.5 gm Q15M PRN PO DECREASED GLUCOSE; Start 03/13/16 at 00: 30 Dextrose (D50w Syringe) 25 ml Q15M PRN IV DECREASED GLUCOSE; Start 03/13/16 at 00:30 Dextrose (D50w Syringe) 50 ml Q15M PRN IV DECREASED GLUCOSE; Start 03/13/16 at 00:30 Glucagon (Glucagen) 1 mg Q15M PRN IM DECREASED GLUCOSE; Start 03/13/16 at 00:30 Glucose (Glutose) 15 gm Q15M PRN BUCCAL DECREASED GLUCOSE; Start 03/13/16 at 00 :30 Miscellaneous Information (*Order Clarification Bulletin) MEDICATION REQUIRES CLARIFICATI... Q8H XX ; Start 03/13/16 at 00:30 Heparin Sodium (Porcine) (Heparin (5000 Units/0.5 ml)) 5,000 unit Q12 SC Last administered on 03/13/16 09:49; Admin Dose 5,000 UNIT; Start 03/13/16 at 09:00 Epoetin Kt (Epogen (Non Esrd/Non Oncology)) 2,000 units [place]WEDFRI@17 SC ; Start 03/13/16 at 17:00 Epoetin Kt (Epogen (Non Esrd/Non Oncology)) 3,000 units MONWEDFRI@17 SC ; Start 03/13/16 at 17:00 OBI PEREZ MD Mar 13, 2016 14:54
[2016-03-13 15:44] LABS: POTASSIUM 3.6 mmol/L (3.5-5.1)
[2016-03-13 15:47] LABS: CREATININE 0.47 mg/dl (0.44-1.00)
[2016-03-13] MEDS ORDERED: EPOETIN 2000 UNITS/ML INJ (NON ESRD/NON ONCOLOGY) SC SCH (17:00)
[2016-03-13] MEDS ORDERED: EPOETIN 3000 UNITS/ML (NON ESRD/NON ONCOLOGY) SC SCH (17:00)
[2016-03-13] MEDS ORDERED: EPOETIN 4000 UNITS/ML VIAL (ONCOLOGY) SC SCH (17:00)
--- NOTE | 2016-03-13 18:33 | CONS ---
DATE OF ADMISSION: 03/12/2016 DATE OF CONSULTATION: 03/13/2016 TYPE OF CONSULTATION: Pulmonary. Thank you, Dr. Hand, for this consultation. HISTORY OF PRESENT ILLNESS: This is a 50-year-old lady known to this group from multiple prior admi ssions with a history of vent-dependent respiratory failure, muscular dystrophy and paraplegia. Dec reased ejection fraction with cardiomyopathy who came in with increasing abdominal pain and distenti on and found to have significant ascites, no hypoxemia. No nausea, no vomiting. MEDICATIONS: Per chart. ALLERGIES: NONE. PAST MEDICAL HISTORY: As above. PHYSICAL EXAMINATION: GENERAL: Elderly-appearing lady, appears comfortable at rest, no acute distress. VITAL SIGNS: Currently afebrile, pulse is 60, blood pressure 103/52, O2 saturation 96%, FIO2 of 35% . NECK: Trach site clean and intact. CARDIAC: S1, S2, no added sounds or murmurs. CHEST: Diminished air entry bilaterally. ABDOMEN: Soft, nontender. No guarding or rebound. EXTREMITIES: No cyanosis, clubbing, edema. NEUROLOGIC: Generalized weakness. LABORATORY DATA: White count 7.3, hemoglobin 8.9, platelets 370. BUN 66, creatinine 0.47. INR 1.2 . Urinalysis unremarkable. DIAGNOSTIC DATA: Ultrasound of the abdomen shows small amount of ascitic fluid. Status post 5.7 L of paracentesis. The patient tolerated this procedure well without complications and is likely stab le for discharge from pulmonary standpoint. Dictated By: YUNIEL CHISHOLM/BETTY Conf#: [id number] DID#: [id number]
[2016-03-14] VITALS (18 sets, daily range): BP systolic 88–108; BP diastolic 42–57; PULSE 59–80; RESP 18–20
[2016-03-14] MEDS: INSULIN ASPART [NOVOLOG] 3 ML PEN SC SCH ×4 (01:00→13:05)
[2016-03-14] MEDS: LEVOTHYROXINE 88 MCG TAB GTB SCH (05:42)
[2016-03-14] MEDS: LANSOPRAZOLE 30 MG CAP GTB SCH (05:42)
[2016-03-14] MEDS: BUMETANIDE 1 MG TAB GTB SCH (05:51)
[2016-03-14 07:08] LABS: ALBUMIN 2.8 g/dl (3.3-4.9)
[2016-03-14 07:09] LABS: POTASSIUM 3.4 mmol/L (3.5-5.1)
[2016-03-14 07:11] LABS: ALBUMIN/GLOBULIN RATIO 0.77; BILIRUBIN,INDIRECT 0.2 mg/dl (0-1.1); BILIRUBIN,TOTAL 0.2 mg/dl (0.2-1.3); CREATININE 0.47 mg/dl (0.44-1.00); TOTAL PROTEIN 6.4 g/dl (6.1-8.1)
[2016-03-14 07:12] LABS: MAGNESIUM 2.3 mg/dl (1.7-2.5)
[2016-03-14 07:23] LABS: BASOPHILS % 0.7 % (0.0-2.0); EOSINOPHILS # 0.5 10^3/ul (0.0-0.5); EOSINOPHILS % 8.7 % (0.0-7.0); HEMATOCRIT 23.3 % (37.0-47.0); HEMOGLOBIN 7.8 g/dl (12.0-16.0); LYMPHOCYTES # 0.8 10^3/ul (0.8-2.9); LYMPHOCYTES % 15.3 % (15.0-51.0); MEAN CORPUSCULAR HEMOGLOBIN 29.7 pg (29.0-33.0); MEAN CORPUSCULAR HGB CONC 33.6 g/dl (32.0-37.0); MEAN CORPUSCULAR VOLUME 88.5 fl (82.0-101.0); MEAN PLATELET VOLUME 8.4 fl (7.4-10.4); MONOCYTE # 0.5 10^3/ul (0.3-0.9); MONOCYTES % 8.8 % (0.0-11.0); NEUTROPHIL # 3.6 10^3/ul (1.6-7.5); NEUTROPHILS % 66.5 % (39.0-77.0); PLATELET COUNT 337 10^3/UL (140-440); RED BLOOD COUNT 2.64 10^6/ul (4.20-5.40); RED CELL DISTRIBUTION WIDTH 19.8 % (11.5-14.5); UNCORRECTED WBC 5.4 10^3/ul (4.8-10.8); WHITE BLOOD COUNT 5.4 10^3/ul (4.8-10.8)
[2016-03-14 07:27] LABS: CONDITION 1; LH ANALYZER COMMENTS 1
[2016-03-14] MEDS: LISINOPRIL 5 MG TAB GTB SCH (09:00)
[2016-03-14] MEDS: LACTOBACILLUS CHEW TAB GTB SCH (09:56)
[2016-03-14] MEDS: FOLIC ACID 1 MG TAB GTB SCH (09:56)
[2016-03-14] MEDS: MULTIVITAMINS THERAPEUTIC TAB GTB SCH (09:59)
[2016-03-14] MEDS: HEPARIN 5,000 UNIT/0.5 ML SYG SC SCH (10:04)
[2016-03-14] MEDS: AMIODARONE 200 MG TAB GTB SCH (10:12)
--- NOTE | 2016-03-14 10:43 | PN ---
Date/Time of Note Date/Time of Note DATE: 03/14/16 TIME: 10:41 Assessment/Plan VTE Prophylaxis VTE Prophylaxis Intervention: SCD's, other Assessment/Plan Assessment/Plan )Volume Overload, Anasarca, Ascites, S/p Large Volume Paracentesis 2) VDRF Hx of Tracheostomy 3) Combined Systolic and Diastolic Heart Failure, EF 30-35%, Hx of AICD 4) Mild Hyperkalemia 5) Mild Hyponatremia 6) Chronic Hypertension 7) Hypoalbuminemia 8) Pre- Renal Azotemia, Non oliguric 9) Anemia, Chronic Disease. [id number] on vent/trach post paracentwsis diuresing well Exam/Review of Systems Vital Signs Vitals Vital Signs Date Time Temp Pulse Resp B/P Pulse Ox O2 Delivery O2 Flow Rate FiO2 03/14/16 09:05 60 20 98 35 03/14/16 07:54 98.9 108/57 03/12/16 22:43 Mechanical Ventilator Intake and Output 03/13/16 03/13/16 03/14/16 15:00 23:00 07:00 Intake Total 850 ml 540 ml Output Total 1200 ml 1000 ml Balance -350 ml -460 ml Exam Constitutional: alert Head: normocephalic Eyes: nl conjunctiva, nl sclera Neck: supple Respiratory: normal air movement Cardiovascular: regular rate and rhythm Gastrointestinal: soft Musculoskeletal: nl extremities to inspection Results Result Diagram: 03/14/16 0610 03/14/16 0610 Results 24 hrs Laboratory Tests Test 03/13/16 12:49 03/13/16 15:15 03/13/16 18:10 03/13/16 20:52 Bedside Glucose 74 95 95 Anion Gap 13 Blood Urea Nitrogen 66 H Calcium Level 9.0 Carbon Dioxide Level 34 H Chloride Level 96 L Creatinine 0.47 Glucose Level 98 Potassium Level 3.6 Sodium Level 139 Test 03/14/16 01:48 03/14/16 05:12 03/14/16 06:10 03/14/16 08:07 Bedside Glucose 86 83 100 Alanine Aminotransferase (ALT/SGPT) 24 Albumin 2.8 L Albumin/Globulin Ratio 0.77 Alkaline Phosphatase 93 Anion Gap 13 Aspartate Amino Transf (AST/SGOT) 23 Basophils # 0.0 Basophils % 0.7 Blood Morphology Comment Blood Urea Nitrogen 61 H Calcium Level 9.0 Carbon Dioxide Level 34 H Chloride Level 98 Creatinine 0.47 Direct Bilirubin 0.00 Eosinophils # 0.5 Eosinophils % 8.7 H Globulin 3.60 H Glucose Level 63 #L Hematocrit 23.3 L Hemoglobin 7.8 L Indirect Bilirubin 0.2 Lymphocytes # 0.8 Lymphocytes % 15.3 Magnesium Level 2.3 Mean Corpuscular Hemoglobin 29.7 Mean Corpuscular Hemoglobin Concent 33.6 Mean Corpuscular Volume 88.5 Mean Platelet Volume 8.4 Monocytes # 0.5 Monocytes % 8.8 Neutrophils # 3.6 Neutrophils % 66.5 Nucleated Red Blood Cells # 0.0 Nucleated Red Blood Cells % 0.0 Platelet Count 337 Potassium Level 3.4 L Red Blood Count 2.64 L Red Cell Distribution Width 19.8 H Sodium Level 142 Total Bilirubin 0.2 Total Protein 6.4 # White Blood Count 5.4 # Medications Medications Current Medications Acetaminophen (Tylenol Liquid) 650 mg Q4 PRN GTB PAIN AND OR ELEVATED TEMP; Start 03/12/16 at 20:00 Amiodarone HCl (Cordarone) 200 mg DAILY GTB Last administered on 03/14/16 10: 12; Admin Dose 200 MG; Start 03/13/16 at 09:00 Bisacodyl (Dulcolax Supp) 10 mg Q24H PRN [place] PRN; Start 03/12/16 at 20:00 Docusate Sodium (Colace Liquid Cup) 200 mg QHS PRN GTB CONSTIPATION; Start at 20:00 Folic Acid (Folic Acid) 1 mg DAILY GTB Last administered on 03/14/16 09:56; Admin Dose 1 MG; Start 03/13/16 at 09:00 Acetaminophen/ Hydrocodone Bitart ([place] (5/325)) 1 tab Q6 PRN GTB PAIN LEVEL 6 -10; Start 03/12/16 at 20:00 Lisinopril (Zestril) 2.5 mg BID GTB Last administered on 03/13/16 00:49; Admin Dose 2.5 MG; Start 03/12/16 at 23:45 Lorazepam (Ativan) 1 mg Q8 PRN GTB ANXIETY; Start 03/12/16 at 20:00 Magnesium Hydroxide (Milk Of Mag) 30 ml DAILY PRN GTB CONSTIPATION; Start 03/12 at 20:00 Multivitamins Therapeutic (Theragran) 1 tab DAILY GTB Last administered on 03/14 09:59; Admin Dose 1 TAB; Start 03/13/16 at 09:00 Lansoprazole (Prevacid) 30 mg DAILY@06 GTB Last administered on 03/14/16 05:42 ; Admin Dose 30 MG; Start 03/13/16 at 06:00 Senna (Senokot) 2 tab QHS GTB Last administered on 03/13/16 20:54; Admin Dose 2 TAB; Start 03/12/16 at 21:00 Sodium Biphosphate/ Sodium Phosphate (Fleet Enema Pediatric) 66.6 ml DAILY PRN [place] CONSTIPATION; Start 03/12/16 at 20:00 Tramadol HCl (Ultram) 50 mg Q4H PRN GTB PAIN; Start 03/12/16 at 20:00 Insulin Detemir (Levemir) 18 unit QHS SC Last administered on 03/13/16 20:57; Admin Dose 18 UNIT; Start 03/13/16 at 00:30 Lactobacillus Acidoph/Bulgaricus (Floranex) 1 tab BID GTB Last administered on 03/14/16 09:56; Admin Dose 1 TAB; Start 03/13/16 at 09:00 Ondansetron HCl (Zofran Inj) 4 mg Q6H PRN IV NAUSEA AND/OR VOMITING; Start at 20:00 Morphine Sulfate (morphine) 1 mg Q4H PRN IV PAIN LEVEL 7-10; Start 03/12/16 at 20:00 Insulin Aspart (Novolog Insulin Pen) NOVOLOG *MILD* ALGORI... Q4 SC ; Start at 01:00 IV Flush (NS 10 ml) 10 ml PRN PRN IV IV PROTOCOL; Start 03/12/16 at 22:00 Miscellaneous Information 1 ea NOTE XX ; Start 03/13/16 at 00:30 Glucose (Glutose) 15 gm Q15M PRN PO DECREASED GLUCOSE; Start 03/13/16 at 00:30 Glucose (Glutose) 22.5 gm Q15M PRN PO DECREASED GLUCOSE; Start 03/13/16 at 00: 30 Dextrose (D50w Syringe) 25 ml Q15M PRN IV DECREASED GLUCOSE; Start 03/13/16 at 00:30 Dextrose (D50w Syringe) 50 ml Q15M PRN IV DECREASED GLUCOSE; Start 03/13/16 at 00:30 Glucagon (Glucagen) 1 mg Q15M PRN IM DECREASED GLUCOSE; Start 03/13/16 at 00:30 Glucose (Glutose) 15 gm Q15M PRN BUCCAL DECREASED GLUCOSE; Start 03/13/16 at 00 :30 Heparin Sodium (Porcine) (Heparin (5000 Units/0.5 ml)) 5,000 unit Q12 SC Last administered on 03/14/16 10:04; Admin Dose 5,000 UNIT; Start 03/13/16 at 09:00 Epoetin Kt (Epogen (Non Esrd/Non Oncology)) 2,000 units [place]RI@17 SC Last administered on 03/13/16 18:41; Admin Dose 2,000 UNITS; Start 03/13/16 at 17:00 Epoetin Kt (Epogen (Non Esrd/Non Oncology)) 3,000 units [place]@17 SC Last administered on 03/13/16 18:40; Admin Dose 3,000 UNITS; Start 03/13/16 at 17:00 CHRIS MILNER MD Mar 14, 2016 10:43
--- NOTE | 2016-03-14 11:30 | PDOCDIS ---
Discharge Instructions CONDITION Patient Condition: Stable HOME CARE INSTRUCTIONS: Special Diet: PEG tube feed Diabetasource ACTIVITY: Activity Restrictions: No Restrictions OBI PEREZ MD Mar 14, 2016 11:30
--- NOTE | 2016-03-14 18:02 | CONS ---
Date/Time of Note Date/Time of Note DATE: 03/14/16 TIME: 18:00 Consult Date/Type/Reason Admit Date/Time Mar 12, 2016 at 17:47 Initial Consult Date 03/13/16 Type of Consultation: Pulm Ordering Provider: OBI PEREZ MD Subjective No events. Stable on MV. Objective Vital Signs Date Time Temp Pulse Resp B/P Pulse Ox O2 Delivery O2 Flow Rate FiO2 03/14/16 16:35 80 03/14/16 15:15 18 100 35 03/14/16 12:00 98.2 89/55 03/12/16 22:43 Mechanical Ventilator Intake and Output 03/13/16 03/13/16 03/14/16 15:00 23:00 07:00 Intake Total 850 ml 540 ml Output Total 1200 ml 1000 ml Balance -350 ml -460 ml HEENT: Neck supple; no JVD; no LAD, trach clear CVS: RRR, S1 and S2 CHEST: Clear ABD: Soft, NT, + BS EXT: No c/c/e Results/Medications Result Diagram: 03/14/16 0610 03/14/16 0610 Results 24 hrs Laboratory Tests Test 03/13/16 18:10 03/13/16 20:52 03/14/16 01:48 03/14/16 05:12 Bedside Glucose 95 95 86 83 Test 03/14/16 06:10 03/14/16 08:07 03/14/16 13:05 Alanine Aminotransferase (ALT/SGPT) 24 Albumin 2.8 L Albumin/Globulin Ratio 0.77 Alkaline Phosphatase 93 Anion Gap 13 Aspartate Amino Transf (AST/SGOT) 23 Basophils # 0.0 Basophils % 0.7 Blood Morphology Comment Blood Urea Nitrogen 61 H Calcium Level 9.0 Carbon Dioxide Level 34 H Chloride Level 98 Creatinine 0.47 Direct Bilirubin 0.00 Eosinophils # 0.5 Eosinophils % 8.7 H Globulin 3.60 H Glucose Level 63 #L Hematocrit 23.3 L Hemoglobin 7.8 L Indirect Bilirubin 0.2 Lymphocytes # 0.8 Lymphocytes % 15.3 Magnesium Level 2.3 Mean Corpuscular Hemoglobin 29.7 Mean Corpuscular Hemoglobin Concent 33.6 Mean Corpuscular Volume 88.5 Mean Platelet Volume 8.4 Monocytes # 0.5 Monocytes % 8.8 Neutrophils # 3.6 Neutrophils % 66.5 Nucleated Red Blood Cells # 0.0 Nucleated Red Blood Cells % 0.0 Platelet Count 337 Potassium Level 3.4 L Red Blood Count 2.64 L Red Cell Distribution Width 19.8 H Sodium Level 142 Total Bilirubin 0.2 Total Protein 6.4 # White Blood Count 5.4 # Bedside Glucose 100 81 Medications Current Medications Acetaminophen (Tylenol Liquid) 650 mg Q4 PRN GTB PAIN AND OR ELEVATED TEMP; Start 03/12/16 at 20:00 Amiodarone HCl (Cordarone) 200 mg DAILY GTB Last administered on 03/14/16 10: 12; Admin Dose 200 MG; Start 03/13/16 at 09:00 Bisacodyl (Dulcolax Supp) 10 mg Q24H PRN [place] PRN; Start 03/12/16 at 20:00 Docusate Sodium (Colace Liquid Cup) 200 mg QHS PRN GTB CONSTIPATION; Start at 20:00 Folic Acid (Folic Acid) 1 mg DAILY GTB Last administered on 03/14/16 09:56; Admin Dose 1 MG; Start 03/13/16 at 09:00 Acetaminophen/ Hydrocodone Bitart ([place] (5/325)) 1 tab Q6 PRN GTB PAIN LEVEL 6 -10; Start 03/12/16 at 20:00 Lisinopril (Zestril) 2.5 mg BID GTB Last administered on 03/13/16 00:49; Admin Dose 2.5 MG; Start 03/12/16 at 23:45 Lorazepam (Ativan) 1 mg Q8 PRN GTB ANXIETY; Start 03/12/16 at 20:00 Magnesium Hydroxide (Milk Of Mag) 30 ml DAILY PRN GTB CONSTIPATION; Start 03/12 at 20:00 Multivitamins Therapeutic (Theragran) 1 tab DAILY GTB Last administered on 03/14 09:59; Admin Dose 1 TAB; Start 03/13/16 at 09:00 Lansoprazole (Prevacid) 30 mg DAILY@06 GTB Last administered on 03/14/16 05:42 ; Admin Dose 30 MG; Start 03/13/16 at 06:00 Senna (Senokot) 2 tab QHS GTB Last administered on 03/13/16 20:54; Admin Dose 2 TAB; Start 03/12/16 at 21:00 Sodium Biphosphate/ Sodium Phosphate (Fleet Enema Pediatric) 66.6 ml DAILY PRN [place] CONSTIPATION; Start 03/12/16 at 20:00 Tramadol HCl (Ultram) 50 mg Q4H PRN GTB PAIN; Start 03/12/16 at 20:00 Insulin Detemir (Levemir) 18 unit QHS SC Last administered on 03/13/16 20:57; Admin Dose 18 UNIT; Start 03/13/16 at 00:30 Lactobacillus Acidoph/[place]garicus (Floranex) 1 tab BID GTB Last administered on 03/14/16 09:56; Admin Dose 1 TAB; Start 03/13/16 at 09:00 Ondansetron HCl (Zofran Inj) 4 mg Q6H PRN IV NAUSEA AND/OR VOMITING; Start at 20:00 Morphine Sulfate (morphine) 1 mg Q4H PRN IV PAIN LEVEL 7-10; Start 03/12/16 at 20:00 Insulin Aspart (Novolog Insulin Pen) NOVOLOG *MILD* ALGORI... Q4 SC ; Start at 01:00 IV Flush (NS 10 ml) 10 ml PRN PRN IV IV PROTOCOL; Start 03/12/16 at 22:00 Miscellaneous Information 1 ea NOTE XX ; Start 03/13/16 at 00:30 Glucose (Glutose) 15 gm Q15M PRN PO DECREASED GLUCOSE; Start 03/13/16 at 00:30 Glucose (Glutose) 22.5 gm Q15M PRN PO DECREASED GLUCOSE; Start 03/13/16 at 00: 30 Dextrose (D50w Syringe) 25 ml Q15M PRN IV DECREASED GLUCOSE; Start 03/13/16 at 00:30 Dextrose (D50w Syringe) 50 ml Q15M PRN IV DECREASED GLUCOSE; Start 03/13/16 at 00:30 Glucagon (Glucagen) 1 mg Q15M PRN IM DECREASED GLUCOSE; Start 03/13/16 at 00:30 Glucose (Glutose) 15 gm Q15M PRN BUCCAL DECREASED GLUCOSE; Start 03/13/16 at 00 :30 Heparin Sodium (Porcine) (Heparin (5000 Units/0.5 ml)) 5,000 unit Q12 SC Last administered on 03/14/16 10:04; Admin Dose 5,000 UNIT; Start 03/13/16 at 09:00 Epoetin Kt (Epogen (Non Esrd/Non Oncology)) 2,000 units MONWEDFRI@17 SC Last administered on 03/13/16t 18:41; Admin Dose 2,000 UNITS; Start 03/13/16 at 17:00 Epoetin Kt (Epogen (Non Esrd/Non Oncology)) 3,000 units [place]RI@17 SC Last administered on 03/13/16t 18:40; Admin Dose 3,000 UNITS; Start 03/13/16 at 17:00 Mupirocin (Bactroban) 1 applic BID TOP ; Start 03/14/16 at 21:00; Stop 03/21/16 at 20:59 Assessment/Plan Additional Assessment/Plan IMP: 1. Volume overload 2. VDRF 3. CHF 4. Ascites 5 Anemia RECS: 1. Cont vent support GERSON THOMAS MD Mar 14, 2016 18:02
[2016-03-14] MEDS ORDERED: MUPIROCIN 2% 22 GM OINT TOP SCH (21:00)
--- NOTE | 2016-03-15 11:17 | DS ---
DATE OF ADMISSION: 03/12/2016 DATE OF DISCHARGE: 03/14/2016 CONSULTANTS: 1. Dr. Aakash Walker 2. Dr. Liam Calixto DIAGNOSES: 1. Abdominal distention with ascites, status post abdominal ultrasound guided paracentesis. 2. Hypoalbuminemia repleted. 3. Ventilator dependent respiratory failure. Continue vent management. 4. Anemia, stable. Continue ferrous sulfate. 5. Anxiety. Continue lorazepam. 6. Essential hypertension. Continue lisinopril and Bumex although placed patient parameters. 7. Gastroesophageal reflux disease. Continue PPI. 8. Hypothyroidism. Continue levothyroxine. 9. Diabetes mellitus. Continue Insulin and Levemir. Feeding PEG tube feeding via Diabetisource. MEDICATIONS: 1. Tylenol. 2. [place] 3. Amiodarone. 4. Dulcolax. 5. Bumex. 6. Colace. 7. Epogen. 8. Folic acid. 9. Lasix. 10. Insulin aspart. 11. Levemir. 12. Floranex. 13. Prevacid. 14. Synthroid. 15. Zestril. 16. Ativan. 17. Multivitamin. 18. Zofran 19. Senna. 20. Fleet enema. 21. Ultram. ALLERGIES: NO KNOWN DRUG ALLERGIES. DISPOSITION: Back to [facility] facility. LABORATORY: WBC 5.4, hemoglobin 7.8, hematocrit 32.3, platelets 337. Sodium 142, potassium 3.4, ch loride 98, bicarbonate 34, BUN 61, creatinine 0.47, glucose 63. LFTs all within normal limits. HOSPITAL COURSE: This is a 50-year-old female known to me from previous hospitalization with past m edical history of quadriplegia, muscular dystrophy, vent dependent respiratory failure, anemia, asci temi, dysphagia status post PEG tube feeding, hypertension, anxiety, diabetes mellitus, GERD, cardiom yopathy, and ejection fraction 30% to 35% who resides at [facility] and was found to h ave abdominal distention and ascites and was transferred to [facility] for paracen tesis. The patient was taken to ultrasound, and 5.57 liters of serous fluid was aspirated and disca rded. The patient tolerated the procedure well and was placed on albumin via IV. She was continued on vent management. Her blood pressure medication was continued, although this morning the patient was found to be mildly hypotensive; therefore, it was placed on parameters. In regard to diabetes mellitus, the patient was continued on her insulin and was placed on Lantus. After discussing the m ode of the treatment and discharge with her primary care physician, Dr. Zhao Ortiz, it was agreed t o transfer the patient back to [facility] facility. I have explained the procedure and the dis charge to the and the patient. The patient also will need future paracentesis in about a mo nt, and prior to the paracentesis, the patient should first be treated with albumin so the patient does not become hypotensive. At this time, the patient is medically stable to be discharged to [facility] via BLS. Dictated By: OBI JIM/NTS Conf#: [id number] DID#: [id number]
== END 2016-03-14 16:35 | DRG 291 ==
LOC: E/R 12:13 → TEL 17:47
PROVIDERS: ADMIT Family Medicine; ATTEND Family Medicine
PROC: 5A1945Z Respiratory Ventilation, 24-96 Consecutive Hours (ICD-10-PCS; principal; 2016-03-12)
PROC: 0W9G3ZZ Drainage of Peritoneal Cavity, Percutaneous Approach (ICD-10-PCS; 2016-03-12)
PROC: 02HV33Z Insertion of Infusion Device into Superior Vena Cava, Percutaneous Approach (ICD-10-PCS; 2016-03-12)
PROC: B548ZZA Ultrasonography of Superior Vena Cava, Guidance (ICD-10-PCS; 2016-03-12)
DX: I11.0 Hypertensive heart disease with heart failure (principal); J96.22 Acute and chronic respiratory failure with hypercapnia; J96.21 Acute and chronic respiratory failure with hypoxia; G82.50 Quadriplegia, unspecified; Z99.11 Dependence on respirator [ventilator] status; E46 Unspecified protein-calorie malnutrition; G71.0 Muscular dystrophy; Z93.0 Tracheostomy status; I42.9 Cardiomyopathy, unspecified; I48.91 Unspecified atrial fibrillation; R18.8 Other ascites; Z68.41 Body mass index [BMI] 40.0-44.9, adult; I50.41 Acute combined systolic (congestive) and diastolic (congestive) heart failure; E88.09 Other disorders of plasma-protein metabolism, not elsewhere classified; E86.0 Dehydration; E87.5 Hyperkalemia; Z95.0 Presence of cardiac pacemaker; D64.9 Anemia, unspecified; E03.9 Hypothyroidism, unspecified; Z74.01 Bed confinement status; Z93.1 Gastrostomy status; I25.119 Atherosclerotic heart disease of native coronary artery with unspecified angina pectoris; E11.43 Type 2 diabetes mellitus with diabetic autonomic (poly)neuropathy; K31.84 Gastroparesis; K21.9 Gastro-esophageal reflux disease without esophagitis; R13.10 Dysphagia, unspecified; R79.89 Other specified abnormal findings of blood chemistry
CPT/HCPCS: 36415; 36569; 71010; 76705; 76937; 80048; 80053; 80307; 82140; 82962; 83690; 83735; 84484; 85025; 85610; 86850; 86900; 86901; 87081; 93005; 94002; 94003; C1769; J0885; J1644; J1815; J1940; J7040; P9045

== ENCOUNTER 2016-04-21 11:50 | Emergency (ER) | payer MEDICARE, OTHER ==
[~2016-04-21] VITALS: Ht 167.6 cm; Wt 90.9 kg
[~2016-04-21 11:50] MED LIST changes: -CEFE1FRO IV; -ENAL2.5T GTB; +LISI2.5T59 GTB
--- NOTE | 2016-04-21 12:24 | ERA ---
ER Documentation Chief Complaint Date/Time DATE: 04/21/16 TIME: 12:22 Chief Complaint HPI Patient is a 50-year-old female who is tracheostomy and vent dependent with G[facility]. Patient has been noted to have following hemoglobins, most recently 7.1 yesterday. Patient has been receiving Epogen. There is no report of dark stools or bloody stool. Patient reports mild shortness of breath, no chest pain, no fever. ROS All systems reviewed and are negative except as per history of present illness. Medications Home Meds Reported Medications Levothyroxine Sodium* (Levothyroxine Sodium*) 100 Mcg Tablet, 100 MCG PO BEFORE BREAKFAST, #30 TAB 04/21/16 Ferrous Sulfate (Iron) 325 Mg Capsule.er, 325 MG GTB TID, CAP 04/21/16 Cranberry Extract (Cranberry) 425 Mg Capsule, 425 MG GTB DAILY, CAP 04/21/16 Chlorhexidine Gluconate (Peridex) 473 Ml Mouthwash, 15 ML MM BID, BOTTLE 04/21/16 Albuterol Sulfate* (Albuterol Sulfate* Neb) 0.083%-3 Ml Neb, 2.5 MG NEB Q3H Y for WHEEZING AND SOB, #30 VIAL 04/21/16 Lisinopril* (Lisinopril*) 2.5 Mg Tablet, 2.5 MG GTB BID, #30 TAB HOLD FOR SBP<110 OR HR<60 03/12/16 Acetaminophen* (Acetaminophen*) 650 Mg Tablet, 650 MG GTB Q4 Y for PAIN AND OR ELEVATED TEMP, #30 TAB 01/04/16 Tramadol Hcl* (Ultram*) 50 Mg Tablet, 50 MG GTB Q4 Y for PAIN, TAB 01/04/16 Insulin Detemir (Levemir) 100 Unit/1 Ml Vial, 18 UNIT SC QHS, VIAL 01/04/16 Pantoprazole* (Protonix*) 40 Mg Tablet.dr, 40 MG GTB DAILY, TAB 01/04/16 Lactobacillus Acidophilus (Acidophilus) 1 Each Capsule, 1 EACH GTB BID, CAP 01/04/16 Bumetanide* (Bumetanide*) 1 Mg Tablet, 1 MG GTB BID, TAB 01/04/16 Docusate Sodium* (Colace*) 100 Mg Capsule, 200 MG GTB QHS Y for CONSTIPATION, # 30 CAP 12/28/15 Bisacodyl* (Bisacodyl*) 10 Mg Supp, 10 MG LA Q24H Y for CONSTIPATION, SUPP 12/28/15 Sod Phosphate/Sod Biphosphate* (Fleet* Enema Pediatric) 66.6 Ml Soln, 66.6 ML LA DAILY Y for CONSTIPATION, ENEMA 12/28/15 Folic Acid* (Folic Acid*) 1 Mg Tablet, 1 MG GTB DAILY, TAB 12/28/15 Magnesium Hydroxide* (Milk Of Magnesia*) 400 Mg/5 Ml Oral.susp, 30 ML GTB DAILY Y for CONSTIPATION, ML HOLD FOR LBM QDPRN 12/28/15 Hydrocodone/Acetaminophen ([place] 5-325 Tablet) 1 Each Tablet, 1 EACH GTB Q6 Y for PAIN LEVEL 6-10, TAB 12/28/15 Heparin Sod (Porcine) (Heparin) 1,000 Unit/Ml Soln, 5000 UNIT IJ Q12 11/15/15 Epoetin sophie* (Epogen*) 4,000 Unit/1 Ml Vial, 5000 UNIT SC MONWEDFRI, VIAL HOLD FOR HGB ABOVE 10.5 10/30/15 Amiodarone Hcl* (Amiodarone Hcl*) 200 Mg Tablet, 200 MG GTB DAILY, #30 TAB HOLD FOR SBP<110 OR HR<60 10/30/15 Artificial Tears* (Artificial Tears* Ophth) 15 ml Opht, 2 DROP BOTH EYES Q4H WHILE AWAKE Y for DRY EYES, EA 03/05/15 Lorazepam* (Lorazepam*) 1 Mg Tablet, 1 MG GTB Q8 Y for ANXIETY, #60 TAB 03/05/15 Multivitamins* (Once Daily*) 1 Tab Tablet, 1 TAB GTB DAILY, TAB 08/14/14 Discontinued Reported Medications Sennosides* (Senna Lax*) 8.6 Mg Tablet, 2 TAB GTB QHS, TAB 01/04/16 Insulin Aspart* (Novolog Insulin Pen*) 100 Unit/Ml Soln, 0 SC .SLIDING SCALE Q6 , EA 01/04/16 Levothyroxine Sodium* (Levothyroxine Sodium*) 88 Mcg Tablet, 88 MCG GTB BEFORE BREAKFAST, #30 TAB 01/04/16 Allergies Allergies: Coded Allergies: No Known Allergies (Verified Allergy, Unknown, 04/21/16) PMhx/Soc Past medical history: CHF, diabetes, chronic respiratory failure, ventilator dependent, anasarca, ascites, chronic anemia, muscular dystrophy Past surgical history: Tracheostomy, G-tube Social history: Chronic prison resident History of Surgery: Yes (PEG, TRACH, PACEMAKER/ICD) Anesthesia Reaction: No Hx Neurological Disorder: Yes Hx Respiratory Disorders: Yes (TRACH) Hx Cardiac Disorders: Yes (HTN, CAD CHF, AFIB) Hx Psychiatric Problems: Yes (anxiety) Hx Miscellaneous Medical Probl: Yes (dm, GERD, gastroperesis, muscular dystrophy) Hx Alcohol Use: No Hx Substance Use: No Hx Tobacco Use: No FmHx Family History: diabetes Physical Exam Vitals Vital Signs Date Time Temp Pulse Resp B/P Pulse Ox O2 Delivery O2 Flow Rate FiO2 04/21/16 19:29 77 23 109/75 96 Mechanical Ventilator 04/21/16 17:59 60 18 109/66 100 Mechanical Ventilator 04/21/16 16:58 67 18 95 50 04/21/16 16:22 60 18 122/68 96 Mechanical Ventilator 04/21/16 14:54 66 18 100 50 04/21/16 14:15 66 18 104/76 100 Mechanical Ventilator 04/21/16 12:41 98.4 68 18 119/65 92 Physical Exam Const: Alert, interactive, no acute distress, communication limited by ventilator dependence Head: Atraumatic Eyes: Pale conjunctiva ENT: Normal External Ears, Nose and Mouth. Moist mucous membranes Neck: Full range of motion..~ No meningismus. Resp: Clear to auscultation bilaterally Cardio: Regular rate and rhythm, no murmurs Abd: Soft, non tender, distended. No guarding or rebound. Obese. Skin: No petechiae or rashes Back: No midline or flank tenderness, stage IV decubitus ulcer overlying sacrum, no discharge or erythema Ext: No cyanosis, 3+ pitting edema bilateral legs up to abdominal wall Neur: Awake and alert, weakness to 4 extremities, no facial droop Psych: Normal Affect Result Diagram: 04/21/16 1300 04/21/16 1300 Results 24 hrs Laboratory Tests Test 04/21/16 13:00 04/21/16 13:40 Activated Partial Thromboplast Time 28.5Sec Alanine Aminotransferase (ALT/SGPT) 17IU/L Albumin 3.0g/dl Albumin/Globulin Ratio 0.69 Alkaline Phosphatase 131IU/L Anion Gap 13 Aspartate Amino Transf (AST/SGOT) 28IU/L Basophils # 0.010^3/ul Basophils % 0.4% Blood Urea Nitrogen 81mg/dl Calcium Level 9.2mg/dl Carbon Dioxide Level 37mmol/L Chloride Level 96mmol/L Creatinine 0.64mg/dl Direct Bilirubin 0.00mg/dl Eosinophils # 0.810^3/ul Eosinophils % 8.3% Globulin 4.30g/dl Glucose Level 132mg/dl Hematocrit 28.5% Hemoglobin 8.2g/dl INR International Normalized Ratio 1.15 Indirect Bilirubin 0.2mg/dl Lymphocytes # 0.710^3/ul Lymphocytes % 6.8% Mean Corpuscular Hemoglobin 28.9pg Mean Corpuscular Hemoglobin Concent 28.8g/dl Mean Corpuscular Volume 100.4fl Mean Platelet Volume 9.6fl Monocytes # 0.610^3/ul Monocytes % 5.9% Neutrophils # 7.710^3/ul Neutrophils % 77.2% Nucleated Red Blood Cells # 0.010^3/ul Nucleated Red Blood Cells % 0.0/100WBC Platelet Count 67883^3/UL Potassium Level 3.9mmol/L Prothrombin Time 14.7Sec Prothrombin Time Ratio 1.1 Red Blood Count 2.8410^6/ul Red Cell Distribution Width 18.9% Sodium Level 142mmol/L Total Bilirubin 0.2mg/dl Total Protein 7.3g/dl Troponin I 0.021ng/ml White Blood Count 10.010^3/ul Arterial Blood HCO3 34.4mmol/L Arterial Blood Base Excess 9.0mmol/L Arterial Blood Oxygen Saturation 96.2mmHG Chad Test ACCEPTAB Arterial Blood Gas Puncture Site Right Radial Arterial Blood Carboxyhemoglobin 0.6% Arterial Blood Date Drawn 04/21/2016 1:42:32 PM Arterial Blood Methemoglobin 0.4% Arterial Blood pCO2 (Temp correct) 53.0mmhg Arterial Blood pH (Temp corrected) 7.430 Arterial Blood pO2 (Temp corrected) 83.4mmHG Blood Gas A-a O2 Differential 213.5mmHg Blood Gas Actual Respiration Rate 18 Blood Gas Low PEEP Setting 5.0cmH2O Blood Gas Modality VENT - AC Blood Gas Notified Time 04/21/2016 1:52:45 PM Blood Gas Notified Whom JLD Blood Gas Respiration Rate 18.0 Blood Gas Specimen Source Blood arterial Blood Gas Temperature 37.0C Blood Gas Tidal Volume 550.0mL FiO2 50.0% Oxyhemoglobin Percent 95.2% Total Hemoglobin 8.3g/dl Procedures/MDM EKG: Time 1300, rate 66, electronic ventricular pacer limits further evaluation. Chest x-ray: Stable diffuse infiltrates may suggest pulmonary edema or ARDS, see EMR for full interpretation. Procedure: Therapeutic paracentesis: Patient's consented for procedure. Skin cleaned with ChloraPrep, sterile field placed. Ultrasound with probe cover used to confirm large fluid pocket, using sterile gloves. 8 cc 1% lidocaine injected in local block. Brian incision made with 11 blade scalpel, and paracentesis needle inserted through abdominal wall. Slightly cloudy yellow fluid withdrawn, catheter advanced over needle. 7 L of ascitic fluid drained over an hour and a half. Patient symptomatically improved and hemodynamically stable. Single [id number] suture placed with 3-0 chromic gut suture covered with sterile dressing and Tegaderm. Well-tolerated. MDM: Patient with multiple chronic conditions including chronic respiratory failure with ventilator dependence and anasarca, as well as chronic anemia attributed to renal failure. Patient is on Epogen. Sent to ER for therapeutic paracentesis as well as blood transfusion for hemoglobin of 7.1. However patient's hemoglobin is 8.2 in ER and patient is hemodynamically stable, so blood transfusion is not clinically indicated. I discussed this with Dr. Ortiz , the patient's primary physician, and he and I agree that the patient does not need blood transfusion at this time. We agreed to plan for therapeutic paracentesis and [facility] with close follow-up by Dr. Ortiz. Labs are otherwise stable and unremarkable. Patient does have chronic hypoalbuminemia and elevated BUN, which Dr. Ortiz believes is due to renal failure. Patient is on diuretics. There is no history to suggest GI bleed and rectal exam was difficult due to patient's body habitus. Patient is symptomatically improved after procedure and stable for discharge back to nursing facility. Departure Diagnosis: Primary Impression: Ascites Additional Impression: Anemia Condition: Stable TARIQ COBOS Apr 21, 2016 12:23
[2016-04-21 12:41] VITALS: Ht 167.6 cm; Wt 90.9 kg
--- NOTE | 2016-04-21 13:05 | RADRPT ---
PROCEDURE: Chest x-ray CLINICAL INDICATION: Upper GI bleed TECHNIQUE: Chest single view COMPARISON: 03/12/2016 FINDINGS: Tracheostomy tube remains in good position. As before there is left chest multi lead AICD. Stable cardiomegaly is identified. Persistent diffuse bilateral alveolar lung densities are seen. This ma y represent edema, pneumonia, or ARDS. There is are sharp. There is interval removal of right arm PICC line. IMPRESSION: 1. Tracheostomy tube remains in good position. 2. Interval removal of right arm PICC line. 3. Stable diffuse alveolar lung densities. This may represent edema, pneumonia, or ARDS RPTAT: HH .Ritesh Gilliam MD, MD Date Time Electronically viewed and signed by .Ritesh Gilliam MD, on 04/21/2016 13:05 .W/
[2016-04-21] MEDS ORDERED: ALBU2.5V3 NEB (13:06)
[2016-04-21] MEDS ORDERED: CHLO473M4 MM (13:08)
[2016-04-21] MEDS ORDERED: CRAN425C GTB (13:08)
[2016-04-21] MEDS ORDERED: FERR325C GTB (13:10)
[2016-04-21] MEDS ORDERED: LEVO100T87 PO (13:11)
[2016-04-21 13:12] LABS: ADD SCAN DIFF NO
[2016-04-21 13:13] LABS: ABNORMAL IP MESSAGE 1; BASOPHILS % 0.4 % (0.0-2.0); EOSINOPHILS # 0.8 10^3/ul (0.0-0.5); EOSINOPHILS % 8.3 % (0.0-7.0); HEMATOCRIT 28.5 % (37.0-47.0); HEMOGLOBIN 8.2 g/dl (12.0-16.0); LYMPHOCYTES # 0.7 10^3/ul (0.8-2.9); LYMPHOCYTES % 6.8 % (15.0-51.0); MEAN CORPUSCULAR HEMOGLOBIN 28.9 pg (29.0-33.0); MEAN CORPUSCULAR HGB CONC 28.8 g/dl (32.0-37.0); MEAN CORPUSCULAR VOLUME 100.4 fl (82.0-101.0); MEAN PLATELET VOLUME 9.6 fl (7.4-10.4); MONOCYTE # 0.6 10^3/ul (0.3-0.9); MONOCYTES % 5.9 % (0.0-11.0); NEUTROPHIL # 7.7 10^3/ul (1.6-7.5); NEUTROPHILS % 77.2 % (39.0-77.0); PLATELET COUNT 371 10^3/UL (140-415); RED BLOOD COUNT 2.84 10^6/ul (4.20-5.40); RED CELL DISTRIBUTION WIDTH 18.9 % (11.5-14.5)
[2016-04-21 13:25] LABS: INR 1.15; PARTIAL THROMBOPLASTIN TIME 28.5 Sec (25.0-35.0); PROTIME 14.7 Sec (12.2-14.2); PT RATIO 1.1
[2016-04-21 13:29] LABS: POTASSIUM 3.9 mmol/L (3.5-5.1)
[2016-04-21 13:31] LABS: CREATININE 0.64 mg/dl (0.44-1.00)
[2016-04-21 13:32] LABS: ALBUMIN/GLOBULIN RATIO 0.69; BILIRUBIN,INDIRECT 0.2 mg/dl (0-1.1); BILIRUBIN,TOTAL 0.2 mg/dl (0.2-1.3); TOTAL PROTEIN 7.3 g/dl (6.1-8.1)
[2016-04-21 13:33] LABS: CALCIUM 9.2 mg/dl (8.4-10.2)
[2016-04-21 13:44] LABS: TROPONIN-I 0.021 ng/ml (0.00-0.12)
[2016-04-21 13:52] LABS: AADO2 Arterial 213.5 mmHg (7.0-24.0); Allen Test ACCEPTAB; Arterial COHb 0.6 % (0.0-3.0); Arterial Fraction of Oxyhgb 95.2 % (93.0-99.0); Arterial HCO3 34.4 mmol/L (22.0-26.0); Arterial MetHb 0.4 % (0.0-1.5); Arterial Total Hemglobin 8.3 g/dl (12.0-18.0); MODE VENT - AC
[2016-04-21 22:38] VITALS: BP 97/54; PULSE 60; RESP 22
== END 2016-04-21 19:04 | disposition home or self-care (01) ==
LOC: E/R 11:50
DX: R18.8 Other ascites (principal); D64.9 Anemia, unspecified; I10 Essential (primary) hypertension; I25.10 Atherosclerotic heart disease of native coronary artery without angina pectoris; I50.9 Heart failure, unspecified; E11.9 Type 2 diabetes mellitus without complications; E03.9 Hypothyroidism, unspecified; Z95.0 Presence of cardiac pacemaker; Z79.4 Long term (current) use of insulin
CPT/HCPCS: 36600; 71010; 80053; 82803; 84484; 85025; 85610; 85730; 86850; 86900; 86901; 93005; 94002

== ENCOUNTER 2016-09-14 23:42 | Inpatient (IN) | payer MEDICARE, OTHER ==
[~2016-09-14] VITALS: Ht 160 cm; Wt 110.6 kg
[~2016-09-14 23:42] MED LIST changes: +ALBU2.5V3 NEB; +BISA10SU75 PR; +CHLO473M4 MM; +CRAN425C GTB; -DULR PR; +FERR325C GTB; +LEVO100T87 PO; -LEVO88TA3 GTB; -NOVO3I SC; -SENN-53 GTB
[2016-09-15] VITALS (21 sets, daily range): BP systolic 95–122; BP diastolic 59–73; PULSE 56–60; RESP 16–52; TEMP 97.5; Ht 160 cm; Wt 110.6 kg
[2016-09-15 00:13] LABS: BASOPHIL # 0.1 10^3/ul (0.0-0.1); BASOPHILS % 0.5 % (0.0-2.0); EOSINOPHILS # 0.4 10^3/ul (0.0-0.5); EOSINOPHILS % 3.6 % (0.0-7.0); HEMATOCRIT 36.3 % (37.0-47.0); HEMOGLOBIN 10.9 g/dl (12.0-16.0); LYMPHOCYTES # 1.9 10^3/ul (0.8-2.9); LYMPHOCYTES % 15.2 % (15.0-51.0); MEAN CORPUSCULAR HEMOGLOBIN 29.4 pg (29.0-33.0); MEAN CORPUSCULAR VOLUME 97.8 fl (82.0-101.0); MEAN PLATELET VOLUME 10.3 fl (7.4-10.4); MONOCYTE # 0.6 10^3/ul (0.3-0.9); MONOCYTES % 4.7 % (0.0-11.0); NEUTROPHIL # 9.2 10^3/ul (1.6-7.5); NEUTROPHILS % 74.9 % (39.0-77.0); PLATELET COUNT 438 10^3/UL (140-415); RED BLOOD COUNT 3.71 10^6/ul (4.20-5.40); RED CELL DISTRIBUTION WIDTH 19.9 % (11.5-14.5); WHITE BLOOD COUNT 12.3 10^3/ul (4.8-10.8)
[2016-09-15 00:28] LABS: INR 1.36; PROTIME 16.8 Sec (12.2-14.2); PT RATIO 1.3
[2016-09-15 00:29] LABS: PARTIAL THROMBOPLASTIN TIME 34.3 Sec (25.0-35.0)
[2016-09-15 00:43] LABS: ALANINE AMINOTRANSFERASE 21 IU/L (13-69); ALBUMIN 3.7 g/dl (3.3-4.9); ALKALINE PHOSPHATASE 132 IU/L (42-121); ANION GAP 23 (8-16); ASPARTATE AMINO TRANSFERASE 22 IU/L (15-46); BILIRUBIN,INDIRECT 0.2 mg/dl (0-1.1); BILIRUBIN,TOTAL 0.2 mg/dl (0.2-1.3); BLOOD UREA NITROGEN 119 mg/dl (7-20); CALCIUM 9.2 mg/dl (8.4-10.2); CARBON DIOXIDE 22 mmol/L (21-31); CHLORIDE 94 mmol/L (97-110); CREATININE 0.84 mg/dl (0.44-1.00); GLUCOSE 267 mg/dl (70-220); SODIUM 133 mmol/L (135-144); TOTAL PROTEIN 8.3 g/dl (6.1-8.1)
[2016-09-15 00:45] LABS: POTASSIUM 6.4 mmol/L (3.5-5.1)
[2016-09-15 00:56] LABS: TROPONIN-I < 0.012 ng/ml (0.00-0.12)
[2016-09-15 01:00] LABS: ADD UMIC YES; UR ASCORBIC ACID 40 mg/dL (NEGATIVE); UR BACTERIA FEW /HPF (NONE SEEN); UR BILIRUBIN (Dip) NEGATIVE (NEGATIVE); UR BLOOD (Dip) NEGATIVE (NEGATIVE); UR CLARITY CLOUDY (CLEAR); UR COLOR AMBER (YELLOW); UR GLUCOSE (Dip) NEGATIVE (NEGATIVE); UR KETONES (Dip) NEGATIVE (NEGATIVE); UR LEUKOCYTE ESTERASE (Dip) 1+ Leu/ul (NEGATIVE); UR NITRITE (Dip) NEGATIVE (NEGATIVE); UR RBC 2 /HPF (0-5); UR SPECIFIC GRAVITY (Dip) 1.015 (1.003-1.030); UR SQUAMOUS EPITHELIAL CELL FEW /HPF (FEW); UR TOTAL PROTEIN (Dip) NEGATIVE (NEGATIVE); UR UROBILINOGEN (Dip) NEGATIVE (NEGATIVE); UR WBC CLUMPS FEW /HPF (NONE SEEN)
[2016-09-15] MEDS ORDERED: SODIUM CHLORIDE 0.9% 1L BAG IV* STA (01:13)
[2016-09-15] MEDS ORDERED: CEFEPIME 2GM/50 ML (PMX) 50 ML IVPB STA (01:13)
[2016-09-15] MEDS ORDERED: VANCOMYCIN 1 GM (PMX) 250 ML IVPB ONE (01:30)
[2016-09-15] MEDS ORDERED: NA POLYST SULFON 15 GM/60 ML BTL PO ONE (01:30)
--- NOTE | 2016-09-15 01:59 | RADRPT ---
PROCEDURE: Portable chest x-ray. CLINICAL INDICATION: Altered level of consciousness. TECHNIQUE: Portable AP view of the chest. COMPARISON: 04/21/2016. FINDINGS: There is a tracheostomy tube in place. Diffuse bilateral air space opacities are improved on the rig ht and worsened on the left. The cardiac silhouette is magnified. There is a left chest cardiac pac emaker / AICD. There may be small bilateral pleural effusions. There is no pneumothorax. IMPRESSION: 1. Diffuse bilateral air space opacities, improved on the right and worsened on the left. These ar e nonspecific and could represent multifocal pneumonia or alveolar edema. 2. Tracheostomy tube. 3. Cardiac pacemaker / AICD. 4. Possible small bilateral pleural effusions. RPTAT: HTAR .Cb Shelby MD, Date Time Electronically viewed and signed by .Cb Shelby MD, on 09/15/2016 01:58 .R/
[2016-09-15] MEDS ORDERED: HYDR-3011 PO (02:27)
[2016-09-15] MEDS ORDERED: ASCO500S2 GTB (02:27)
[2016-09-15] MEDS ORDERED: ASCO500S2 PO (02:27)
[2016-09-15] MEDS ORDERED: CRAN3875 GTB (02:27)
[2016-09-15] MEDS ORDERED: MIDO5TAB19 GTB (02:27)
[2016-09-15] MEDS ORDERED: MINE133E23 RC (02:27)
--- NOTE | 2016-09-15 03:48 | ERA ---
ER Documentation Chief Complaint Date/Time DATE: 09/15/16 TIME: 03:47 Chief Complaint BIBA [id number] from [facility],ALOC & low O2 sat 80's while on vent HPI This is a 50-year-old female trach to vent patient brought in by rescue [address] [facility] with altered level consciousness and low O2 saturations. Patient cannot provide any relevant history. ROS All systems reviewed and are negative except as per history of present illness. Medications Home Meds Reported Medications Ascorbic Acid* (Vitamin C* Liq) 500 Mg/5 Ml Syrup, 500 MG GTB DAILY, ML 09/15/16 Ascorbic Acid* (Ascorbic Acid*) 500 Mg/5 Ml Syrup, 500 MG PO BID, #300 ML 09/15/16 Cran/Vitc/Mannose/Inulin/Brom (Uti-Stat Liquid) 3,875 Mg/30 Ml Liquid, 30 MG GTB BID 09/15/16 Midodrine* (Midodrine*) 5 Mg Tablet, 5 MG GTB Q6 Y for HYPOTENSION, TAB 09/15/16 Mineral Oil (Fleet Mineral Oil Enema) 133 Ml Enema, 133 ML RC, ENEMA 09/15/16 Hydroxyzine Hcl* (Hydroxyzine Hcl*) 25 Mg Tablet, 25 MG PO Q8H Y for ITCHING, # 30 TAB 09/15/16 Ferrous Sulfate (Iron) 325 Mg Capsule.er, 325 MG GTB TID, CAP 04/21/16 Cranberry Extract (Cranberry) 425 Mg Capsule, 425 MG GTB DAILY, CAP 04/21/16 Chlorhexidine Gluconate (Peridex) 473 Ml Mouthwash, 15 ML MM BID, BOTTLE 04/21/16 Albuterol Sulfate* (Albuterol Sulfate* Neb) 0.083%-3 Ml Neb, 2.5 MG NEB Q3H Y for WHEEZING AND SOB, #30 VIAL 04/21/16 Lisinopril* (Lisinopril*) 2.5 Mg Tablet, 2.5 MG GTB BID, #30 TAB HOLD FOR SBP<110 OR HR<60 03/12/16 Acetaminophen* (Acetaminophen*) 650 Mg Tablet, 650 MG GTB Q4 Y for PAIN AND OR ELEVATED TEMP, #30 TAB 01/04/16 Tramadol Hcl* (Ultram*) 50 Mg Tablet, 50 MG GTB Q4 Y for PAIN, TAB 01/04/16 Insulin Detemir (Levemir) 100 Unit/1 Ml Vial, 18 UNIT SC QHS, VIAL 01/04/16 Pantoprazole* (Protonix*) 40 Mg Tablet.dr, 40 MG GTB DAILY, TAB 01/04/16 Lactobacillus Acidophilus (Acidophilus) 1 Each Capsule, 1 EACH GTB BID, CAP 01/04/16 Bumetanide* (Bumetanide*) 1 Mg Tablet, 1 MG GTB BID, TAB 01/04/16 Docusate Sodium* (Colace*) 100 Mg Capsule, 200 MG GTB QHS Y for CONSTIPATION, # 30 CAP 12/28/15 Bisacodyl* (Bisacodyl*) 10 Mg Supp, 10 MG OR Q24H Y for CONSTIPATION, SUPP 12/28/15 Sod Phosphate/Sod Biphosphate* (Fleet* Enema Pediatric) 66.6 Ml Soln, 66.6 ML OR DAILY Y for CONSTIPATION, ENEMA 12/28/15 Folic Acid* (Folic Acid*) 1 Mg Tablet, 1 MG GTB DAILY, TAB 12/28/15 Magnesium Hydroxide* (Milk Of Magnesia*) 400 Mg/5 Ml Oral.susp, 30 ML GTB DAILY Y for CONSTIPATION, ML HOLD FOR LBM QDPRN 12/28/15 Hydrocodone/Acetaminophen ([place] 5-325 Tablet) 1 Each Tablet, 1 EACH GTB Q6 Y for PAIN LEVEL 6-10, TAB 12/28/15 Heparin Sod (Porcine) (Heparin) 1,000 Unit/Ml Soln, 5000 UNIT IJ Q12 11/15/15 Epoetin sophie* (Epogen*) 4,000 Unit/1 Ml Vial, 5000 UNIT SC [place]RI, VIAL HOLD FOR HGB ABOVE 10.5 10/30/15 Amiodarone Hcl* (Amiodarone Hcl*) 200 Mg Tablet, 200 MG GTB DAILY, #30 TAB HOLD FOR SBP<110 OR HR<60 10/30/15 Artificial Tears* (Artificial Tears* Ophth) 15 ml Opht, 2 DROP BOTH EYES Q4H WHILE AWAKE Y for DRY EYES, EA 03/05/15 Lorazepam* (Lorazepam*) 1 Mg Tablet, 1 MG GTB Q8 Y for ANXIETY, #60 TAB 03/05/15 Multivitamins* (Once Daily*) 1 Tab Tablet, 1 TAB GTB DAILY, TAB 08/14/14 Discontinued Reported Medications Levothyroxine Sodium* (Levothyroxine Sodium*) 100 Mcg Tablet, 100 MCG PO BEFORE BREAKFAST, #30 TAB 04/21/16 Allergies Allergies: Coded Allergies: No Known Allergies (Unverified Allergy, Unknown, 09/15/16) PMhx/Soc History of Surgery: Yes (trach placement, PEG tube,pacemaker placement) Anesthesia Reaction: No Hx Neurological Disorder: Yes Hx Respiratory Disorders: Yes (acute resp failure vent-dependent,PNA) Hx Cardiac Disorders: Yes (HTN,A-fib,CHF) Hx Psychiatric Problems: Yes (anxiety) Hx Miscellaneous Medical Probl: Yes (UTI,sepsis,ESBL,diabetes,hypothyroidism, paraplegia,anemia,muscle dystrophy) Hx Alcohol Use: No Hx Substance Use: No Hx Tobacco Use: No Smoking Status: Unknown if ever smoked Physical Exam Vitals Vital Signs Date Time Temp Pulse Resp B/P Pulse Ox O2 Delivery O2 Flow Rate FiO2 09/15/16 03:37 60 18 118/68 100 Mechanical Ventilator Trach Collar 09/15/16 02:54 97.5 60 18 120/90 100 Mechanical Ventilator Trach Collar 09/15/16 02:53 60 18 95 100 09/15/16 01:15 60 18 100 100 09/14/16 23:45 97.5 88 18 100/81 100 Physical Exam Const: [] Head: Atraumatic Eyes: Normal Conjunctiva ENT: Trach site is clean dry and intact Neck: Full range of motion..~ No meningismus. Resp: Clear to auscultation bilaterally Cardio: Regular rate and rhythm, no murmurs Abd: Soft, non tender, non distended. Normal bowel sounds Skin: No petechiae or rashes Back: No midline or flank tenderness Ext: No cyanosis, or edema Neur: Awake but not oriented Psych: Normal Mood and Affect Result Diagram: 09/14/16 2340 09/14/16 2340 Results 24 hrs Laboratory Tests Test 09/14/16 23:40 09/15/16 00:24 White Blood Count 12.310^3/ul Red Blood Count 3.7110^6/ul Hemoglobin 10.9g/dl Hematocrit 36.3% Mean Corpuscular Volume 97.8fl Mean Corpuscular Hemoglobin 29.4pg Mean Corpuscular Hemoglobin Concent 30.0g/dl Red Cell Distribution Width 19.9% Platelet Count 20877^3/UL Mean Platelet Volume 10.3fl Neutrophils % 74.9% Lymphocytes % 15.2% Monocytes % 4.7% Eosinophils % 3.6% Basophils % 0.5% Nucleated Red Blood Cells % 0.0/100WBC Neutrophils # 9.210^3/ul Lymphocytes # 1.910^3/ul Monocytes # 0.610^3/ul Eosinophils # 0.410^3/ul Basophils # 0.110^3/ul Nucleated Red Blood Cells # 0.010^3/ul Prothrombin Time 16.8Sec Prothrombin Time Ratio 1.3 INR International Normalized Ratio 1.36 Activated Partial Thromboplast Time 34.3Sec Sodium Level 133mmol/L Potassium Level 6.4mmol/L Chloride Level 94mmol/L Carbon Dioxide Level 22mmol/L Anion Gap 23 Blood Urea Nitrogen 119mg/dl Creatinine 0.84mg/dl Glucose Level 267mg/dl Lactic Acid Level 2.2mmol/L Calcium Level 9.2mg/dl Total Bilirubin 0.2mg/dl Direct Bilirubin 0.00mg/dl Indirect Bilirubin 0.2mg/dl Aspartate Amino Transf (AST/SGOT) 22IU/L Alanine Aminotransferase (ALT/SGPT) 21IU/L Alkaline Phosphatase 132IU/L Troponin I < 0.012ng/ml Total Protein 8.3g/dl Albumin 3.7g/dl Globulin 4.60g/dl Albumin/Globulin Ratio 0.80 Urine Color GORGE Urine Clarity CLOUDY Urine pH 5.0 Urine Specific Gary 1.015 Urine Ketones NEGATIVEmg/dL Urine Nitrite NEGATIVEmg/dL Urine Bilirubin NEGATIVEmg/dL Urine Urobilinogen NEGATIVEmg/dL Urine Leukocyte Esterase 1+Margareth/ul Urine Microscopic RBC 2/HPF Urine Microscopic WBC 4/HPF Urine Squamous Epithelial Cells FEW/HPF Urine Bacteria FEW/HPF Urine Hyaline Casts FEW/HPF Urine Hemoglobin NEGATIVEmg/dL Urine Glucose NEGATIVEmg/dL Urine Total Protein NEGATIVEmg/dl Current Medications Medications (Trade) Dose Ordered Sig/Joseph Route PRN Reason Start Time Stop Time Status Last Admin Dose Admin Sodium Chloride 3090 ml 3,090 ml BOLUS OVER 2 HOURS STAT IV* 09/15/16 01:13 09/15/16 01:14 DC 09/15/16 01:30 Cefepime HCl 50 ml @ 100 mls/hr ONCE STAT IVPB 09/15/16 01:13 09/15/16 01:42 DC 09/15/16 01:30 Vancomycin HCl (Vancocin) 250 ml @ 125 mls/hr ONCE ONCE IVPB 09/15/16 01:30 09/15/16 03:29 DC 09/15/16 02:20 Sodium Polystyrene Sulfonate (Kayexalate) 60 gm ONCE ONCE PO 09/15/16 01:30 09/15/16 01:31 DC 09/15/16 01:30 Procedures/MDM EKG: Rate/Rhythm: Normal Sinus Rhythm QRS, ST, T-waves: No changes consistent w/ acute ischemia Impression: No evidence of ischemia or arrhythmia Chest X-ray 1V Interpreted by me: Soft Tissue: No acute abnormalities Bones: No acute abnormalities Mediastinum/Cardiac Silhouette/Lungs: No acute abnormalities Patient's infectious symptoms have not stabilized and the patient is at risk of rapid decompensation. The patient will be admitted for careful hydration, antibiotic therapy, and infectious source control. Severe Sepsis Assessment: Infectious Source: [pyleonephritis] End organ damage indicated by: [Lactate > 2.0 mmol/L Severe Sepsis Managment: Blood Cultures X 2 before broad spectrum antibiotics initiated within 3 hours of recognition. 30 ml/kg NS bolus Completed Initial Lactate: 2.4 Repeat Lactate pending Critical Care: Time: 35 minutes Treatments/Evaluations: Emergent fluid management, while maintaining close respiratory support. Immediate broad spectrum antibiotic therapy. Simultaneous assessment for possible sources in order to direct therapy. Consideration for invasive and chemical support to prevent respiratory or cardiac collapse. Septic Shock Assessment (1 hour post 30 ml/kg fluid bolus): Hypotension (SBP < 90 or 40 mmHg drop, MAP < 65): [No] Lactic acid > 4.0 [No] Accepting Care Team: Current data and ongoing care discussed. Time: 130 Primary Provider: Hospitalist Consulting: [XOXOXO] Outstanding Data: none Departure Diagnosis: Primary Impression: Sepsis Qualified Code: A41.9 - Sepsis, due to unspecified organism Additional Impression: Hyperkalemia Condition: Serious CECELIA ABBASI Sep 15, 2016 03:48
--- NOTE | 2016-09-15 06:29 | HP ---
Date/Time of Note Date/Time of Note DATE: 09/15/16 TIME: 06:10 Assessment/Plan VTE Prophylaxis VTE Prophylaxis Intervention: SCD's Lines/Catheters IV Catheter Type (from Nrs): Peripheral IV Urinary Cath still in place: Yes Reason Cath still needed: terminal illness/intractable pain Assessment/Plan Assessment/Plan 1. Healthcare associated pneumonia: 2. Chronic Trach/vent dependent respiratory failure 3. Cadiomyopathy with EF of 30% to 35%, AICD 4. Hyperkalemia 5. Altered mentation 6. Dysphagia s/p PEG tube 7. Diabetes with hypoglycemia 8. History of ascites, requiring paracentesis 9. Azotemia 10. History of hypertension 11. History of quadriplegia and the muscular dystrophy PLAN - Patient for hypoxemia most likely secondary to a pneumonia, which also appears to be multifocal pneumonia. She will be placed on antibiotic. Will send for culture. ID consult - Continue trach support. Pulmonary consult will be placed - Will follow up on repeat BMP to evaluate for resolution of hyperkalemia. will place a nephrology consult - We will continue her medications with adjustment as needed - Insulin with adjustment as needed for diabetes HPI/ROS Admit Date/Time Admit Date/Time Sep 15, 2016 at 01:59 Hx of Present Illness This is a 50-year-old female with past medical history of quadriplegia, muscular dystrophy, trach/vent dependent respiratory failure, anemia, ascites, dysphagia status post PEG tube feeding, hypertension, anxiety, diabetes mellitus , GERD, cardiomyopathy with EF of 30% to 35%, AICD who was sent from [facility] rehab for hypoxia and AMS. Patient is not able to provide any history in the section formation of the does not from chart review and from the ER report. Reportedly her oxygen saturation was 80 at the SNF. When she presented to the ER, O2 sat was 100% on 100% FiO2. Chest x-ray shows diffuse bilateral opacity, improved on the right but worse on the left and probable small bilateral pleural effusion. Laboratory shows a potassium of 6.4 , WBC 12.3, initial lactate 2.2 with repeat 1.0, BUN 119 with a creatinine of 0.84 and glucose of 267. I was at the bedside when the RT was suctioning the trach and noted thick bloody aspirate. Patient appears lethargic. Patient was last admitted here in February of this year after she was found to have abdominal distention and ascites and was transferred to [facility] for paracentesis. PMH/Family/Social Past Medical History quadriplegia, muscular dystrophy, vent dependent respiratory failure, anemia, ascites, dysphagia status post PEG tube feeding, hypertension, anxiety, diabetes mellitus, GERD, cardiomyopathy, and ejection fraction 30% to 35% Past Surgical History Status post tracheostomy Status post G-tube Social History Alcohol Use: other Smoking Status: Unknown if ever smoked Drug Use: none Exam/Review of Systems Vital Signs Vitals Vital Signs Date Time Temp Pulse Resp B/P Pulse Ox O2 Delivery O2 Flow Rate FiO2 09/15/16 05:54 62 18 99 70 09/15/16 04:30 97.7 112/72 Mechanical Ventilator Exam Constitutional: other (Patient does not follow any commands and appears lethargic. She is trached clinic and) Head: atraumatic, normocephalic Neck: other (Trach tube in place) Respiratory: diminished breath sounds Cardiovascular: nl pulses, regular rate and rhythm Gastrointestinal: other (PEG tube in place), soft Extremities: edema Labs Result Diagram: 09/14/16 2340 09/14/16 2340 CECELIA HONG MD Sep 15, 2016 06:27
[2016-09-15] MEDS ORDERED: DOCUSATE SODIUM 100 MG CAP PO PRN (06:30)
[2016-09-15] MEDS ORDERED: ACETAMINOPHEN 325 MG TAB PO PRN (06:30)
[2016-09-15] MEDS ORDERED: ACETAMINOPHEN 650 MG SUPP PR PRN (06:30)
[2016-09-15] MEDS ORDERED: ALBUTEROL/IPRATROPIUM (NEB) 3 ML AMP HHN PRN (06:30)
[2016-09-15] MEDS ORDERED: BISACODYL 10 MG SUPP PR PRN (06:30)
[2016-09-15] MEDS ORDERED: VANCOMYCIN IV PER PHARMACY XX SCH (06:30)
[2016-09-15] MEDS ORDERED: NACL 0.9% 3 ML SYG IV SCH (06:30)
[2016-09-15 07:43] LABS: ABNORMAL IP MESSAGE 1; BASOPHILS % 0.3 % (0.0-2.0); EOSINOPHILS # 0.1 10^3/ul (0.0-0.5); EOSINOPHILS % 0.8 % (0.0-7.0); HEMATOCRIT 28.6 % (37.0-47.0); HEMOGLOBIN 8.4 g/dl (12.0-16.0); LYMPHOCYTES # 0.5 10^3/ul (0.8-2.9); LYMPHOCYTES % 5.3 % (15.0-51.0); MEAN CORPUSCULAR HEMOGLOBIN 28.3 pg (29.0-33.0); MEAN CORPUSCULAR HGB CONC 29.4 g/dl (32.0-37.0); MEAN CORPUSCULAR VOLUME 96.3 fl (82.0-101.0); MEAN PLATELET VOLUME 10.3 fl (7.4-10.4); MONOCYTE # 0.6 10^3/ul (0.3-0.9); MONOCYTES % 6.1 % (0.0-11.0); NEUTROPHILS % 86.5 % (39.0-77.0); PLATELET COUNT 278 10^3/UL (140-415); RED BLOOD COUNT 2.97 10^6/ul (4.20-5.40); RED CELL DISTRIBUTION WIDTH 19.5 % (11.5-14.5); WHITE BLOOD COUNT 9.2 10^3/ul (4.8-10.8)
[2016-09-15 07:46] LABS: POSITIVE DIFF @See below
--- NOTE | 2016-09-15 08:49 | CONS ---
Date/Time of Note Date/Time of Note DATE: 09/15/16 TIME: 08:45 Assessment/Plan Assessment/Plan Additional Assessment/Plan Ventilator setting; AC of 18, tidal volume 550, PEEP of 5, 45% FiO2. Chest x-ray was reviewed from yesterday which is showing pulmonary edema as well as significant infiltrate involving the left lung. Assessment and recommendations; 1. Patient admitted for exacerbation of cardia myopathy with pulmonary edema as well as pneumonia. 2. Chronic respiratory failure. 3. Diabetes. 4. Muscular dystrophy with quadriplegia. 5. Anemia. 6. History of pacemaker placement. Due to cardiac arrhythmia. Continue current treatment. Consultation Date/Type/Reason Admit Date/Time Sep 15, 2016 at 01:59 Date of Consultation: Sep 15, 2016 Type of Consultation: Pulmonary Reason for Consultation Pulmonary consultation requested for evaluation of chronic respiratory failure. Patient admitted with pneumonia and sepsis. History of presenting any; patient is a 50-year-old lady who was admitted yesterday transferred from the [facility] with complaints of low pulse oximetry reading. Upon further evaluation chest x-ray was done which is showing combination pulmonary edema as well as left sided pneumonia. Patient has been started on appropriate antibiotic regimen. The patient has advanced dementia and was unable to give any history whatsoever. History was obtained from medical records. Past medical history; 1. Patient with history of chronic respiratory failure, ventilator dependent. 2. Muscular dystrophy with quadriplegia. 3. Poor mental status. 4. Diabetes. 5. History of tracheostomy and G-tube placement. 6. Anemia. 7. History of cardiac arrhythmia, status post pacemaker placement. Medications; reviewed. Allergies; none. Social history, family history, occupational history is not available. Review of systems; unable to be obtained. General exam; middle-aged woman, on ventilator via tracheostomy unresponsive, currently in no distress. Social History Alcohol Use: other Smoking Status: Unknown if ever smoked Drug Use: none Exam/Review of Systems Vital Signs Vitals Vital Signs Date Time Temp Pulse Resp B/P Pulse Ox O2 Delivery O2 Flow Rate FiO2 09/15/16 07:30 98.0 61 16 109/59 97 09/15/16 05:54 70 09/15/16 04:30 Mechanical Ventilator Exam HEENT exam; supple neck, no JVD. No lymphadenopathy. Midline trachea. No thyromegaly. Tracheostomy in place. Pupils are midsize and reactive to light. Patient has fair dentition. Chest exam; diminished breath sounds throughout. S1-S2 audible, no murmurs. Regular rhythm. His pacemaker in the left chest wall. Abdomen exam; soft, protuberant, G-tube in place. Bowel sounds audible. Extremity exam; no peripheral edema. [employer] exam; patient remains unresponsive. Results Result Diagram: 09/15/16 0702 09/14/16 2340 Results 24 hrs Laboratory Tests Test 09/14/16 23:40 09/15/16 00:24 09/15/16 03:45 09/15/16 07:02 White Blood Count 12.3 #H 9.2 # Red Blood Count 3.71 #L 2.97 L Hemoglobin 10.9 #L 8.4 #L Hematocrit 36.3 #L 28.6 #L Mean Corpuscular Volume 97.8 96.3 Mean Corpuscular Hemoglobin 29.4 28.3 L Mean Corpuscular Hemoglobin Concent 30.0 L 29.4 L Red Cell Distribution Width 19.9 H 19.5 H Platelet Count 438 H 278 # Mean Platelet Volume 10.3 10.3 Neutrophils % 74.9 86.5 H Lymphocytes % 15.2 5.3 L Monocytes % 4.7 6.1 Eosinophils % 3.6 0.8 Basophils % 0.5 0.3 Nucleated Red Blood Cells % 0.0 0.0 Neutrophils # 9.2 H 8.0 H Lymphocytes # 1.9 0.5 L Monocytes # 0.6 0.6 Eosinophils # 0.4 0.1 Basophils # 0.1 0.0 Nucleated Red Blood Cells # 0.0 0.0 Prothrombin Time 16.8 H Prothrombin Time Ratio 1.3 INR International Normalized Ratio 1.36 Activated Partial Thromboplast Time 34.3 Sodium Level 133 L Potassium Level 6.4 *H Chloride Level 94 L Carbon Dioxide Level 22 Anion Gap 23 H Blood Urea Nitrogen 119 H Creatinine 0.84 Glucose Level 267 H Lactic Acid Level 2.2 *H 1.0 Calcium Level 9.2 Total Bilirubin 0.2 Direct Bilirubin 0.00 Indirect Bilirubin 0.2 Aspartate Amino Transf (AST/SGOT) 22 Alanine Aminotransferase (ALT/SGPT) 21 Alkaline Phosphatase 132 H Troponin I < 0.012 Total Protein 8.3 H Albumin 3.7 Globulin 4.60 H Albumin/Globulin Ratio 0.80 Urine Color GORGE Urine Clarity CLOUDY A Urine pH 5.0 Urine Specific Ermine 1.015 Urine Ketones NEGATIVE Urine Nitrite NEGATIVE Urine Bilirubin NEGATIVE Urine Urobilinogen NEGATIVE Urine Leukocyte Esterase 1+ H Urine Microscopic RBC 2 Urine Microscopic WBC 4 Urine Squamous Epithelial Cells FEW Urine Bacteria FEW A Urine Hyaline Casts FEW A Urine Hemoglobin NEGATIVE Urine Glucose NEGATIVE Urine Total Protein NEGATIVE Hemoglobin A1c 5.2 Test 09/15/16 07:06 Lactic Acid Level 1.4 Medications Medications Current Medications Lorazepam (Ativan) 0.5 mg Q6H PRN IV ANXIETY; Start 09/15/16 at 06:30 Ondansetron HCl (Zofran Inj) 4 mg Q6H PRN IV NAUSEA AND/OR VOMITING; Start 09/15 at 06:30 Acetaminophen (Tylenol Tab) 650 mg Q6H PRN PO PAIN LEVEL 1-3 OR FEVER; Start at 06:30 Acetaminophen (Tylenol Supp) 650 mg Q6H PRN [place] PAIN LEVEL 1-3 OR FEVER; Start 09/15/16 at 06:30 Morphine Sulfate 2 mg 2 mg Q4H PRN IV PAIN LEVEL 7-10; Start 09/15/16 at 06:30 Cefepime HCl (Maxipime 1gm/50 ml (Pmx)) 50 ml @ 100 mls/hr Q12 IVPB ; Start 09/15/16 at 11:00 Amiodarone HCl (Cordarone) 200 mg DAILY GTB ; Start 09/15/16 at 09:00 Bisacodyl (Dulcolax Supp) 10 mg Q24H PRN [place] CONSTIPATION; Start 09/15/16 at 06: 30 Chlorhexidine Gluconate (Peridex) 15 ml BID MM ; Start 09/15/16 at 09:00 Docusate Sodium (Colace) 200 mg QHS PRN PO CONSTIPATION; Start 09/15/16 at 06:30 Lisinopril (Zestril) 2.5 mg BID GTB ; Start 09/15/16 at 09:00 Pantoprazole (Protonix Tab) 40 mg DAILY PO ; Start 09/15/16 at 09:00 Epoetin Kt (Epogen (Non Esrd/Non Oncology)) 3,000 units MoWeFr@17 SC ; Start 09/16/16 at 17:00 Epoetin Kt 2000 units 2,000 units MoWeFr@17 SC ; Start 09/16/16 at 17:00 Vancomycin HCl/ Sodium Chloride (Vancocin/NS) 250 ml @ 83.333 mls/ hr Q12H IVPB ; Start 09/15/16 at 10:00 RAMON COWAN Sep 15, 2016 08:49
[2016-09-15] MEDS: ALBUTEROL 18 GM INHALER INH SCH ×4 (08:52→21:00)
[2016-09-15] MEDS ORDERED: ALBUTEROL/IPRATROPIUM (NEB) 3 ML AMP HHN SCH (09:00)
[2016-09-15] MEDS: LISINOPRIL 5 MG TAB GTB SCH (09:24)
[2016-09-15] MEDS: BUMETANIDE 1 MG TAB GTB SCH ×2 (09:24→18:15)
[2016-09-15] MEDS: CHLORHEXIDINE GLUCONATE 15 ML UD CUP MM SCH ×2 (09:24→21:36)
[2016-09-15] MEDS: PANTOPRAZOLE (EC) 40 MG TAB PO SCH (09:24)
[2016-09-15] MEDS: AMIODARONE 200 MG TAB GTB SCH (09:24)
[2016-09-15 09:33] LABS: ALBUMIN 2.7 g/dl (3.3-4.9); ALBUMIN/GLOBULIN RATIO 0.65; CALCIUM 8.4 mg/dl (8.4-10.2); CREATININE 0.66 mg/dl (0.44-1.00); POTASSIUM 5.2 mmol/L (3.5-5.1); TOTAL PROTEIN 6.8 g/dl (6.1-8.1)
[2016-09-15 10:25] LABS: AADO2 Arterial 153.1 mmHg (7.0-24.0); Allen Test ACCEPTAB; Arterial Base Excess -3.8 mmol/L (-3.0-3); Arterial COHb 0.3 % (0.0-3.0); Arterial Fraction of Oxyhgb 97.4 % (93.0-99.0); Arterial HCO3 20.9 mmol/L (22.0-26.0); Arterial MetHb 0.4 % (0.0-1.5); Arterial Total Hemglobin 10.1 g/dl (12.0-18.0); MODE VENT - AC
[2016-09-15] MEDS: VANCOMYCIN 1.25 GM in SOD CHLORIDE 0.9% 250 ML IVPB SCH ×2 (10:30→23:33)
[2016-09-15] MEDS: CEFEPIME 1GM/50 ML (PMX) 50 ML IVPB SCH ×2 (11:56→21:36)
[2016-09-15] MEDS: morphine 4 MG/ML VIAL IV PRN (14:36)
[2016-09-15] MEDS: LORAZEPAM 2 MG INJ IV PRN (16:29)
[2016-09-15] MEDS: ARTIFICIAL TEARS 15 ML OPH BOTH EYES PRN (18:34)
[2016-09-15] MEDS ORDERED: DIPHENHYDRAMINE 1%/ZINC 28.3 GM CR TOP PRN (21:00)
[2016-09-15] MEDS: DIPHENHYDRAMINE 50 MG INJ IV PRN (23:33)
[2016-09-16] VITALS (24 sets, daily range): BP systolic 89–110; BP diastolic 50–57; PULSE 54–67; RESP 18–24
[2016-09-16] MEDS: ALBUTEROL 18 GM INHALER INH SCH ×5 (00:56→17:37)
[2016-09-16] MEDS: BUMETANIDE 1 MG TAB GTB SCH ×2 (06:11→17:15)
[2016-09-16] MEDS: morphine 4 MG/ML VIAL IV PRN (06:11)
--- NOTE | 2016-09-16 06:34 | CONS ---
DATE OF ADMISSION: 09/15/2016 DATE OF CONSULTATION: 09/15/2016 Nephrology Consultation REASON FOR CONSULTATION: Hyperkalemia, azotemia. HISTORY OF PRESENT ILLNESS: This is a 50-year-old female with a past medical history of quadriplegia, history of muscular atrophy, history of ventilator-dependent respiratory failure, history of anemia, history of dysphagia, hypertension, anxiety, diabetes, GERD, cardiomyopathy, who presents to [facility] from her subacute facility due to respiratory distress. The patient upon arrival to the emergency room was satting 100 percent. Chest x-ray showed bilateral opacities, right worse than left, and bilateral pleural effusion. On admission the patient noted to have a potassium 6.4, BUN of 119, creatinine 0.84. The patient was placed on IV fluids, IV antibiotics, and admitted to telemetry for further evaluation. Upon my evaluation of the patient at this time, she is obtunded, unable to provide any adequate history. History was obtained by reviewing medical records and speaking to hospital staff. There have been no reports of any hemoptysis, hematemesis, or hematochezia. PAST MEDICAL HISTORY: As stated above. History of ventilator- dependent respiratory failure, history of chronic kidney disease, history of muscular dystrophy, history of dysphagia, history of diabetes, anxiety, hypertension, cardiomyopathy. PAST SURGICAL HISTORY: Status post tracheostomy, status post G- tube. FAMILY HISTORY: Noncontributory. SOCIAL HISTORY: Lives at a subacute facility. MEDICATION: The patient's medications have been reviewed. REVIEW OF SYSTEMS: Unable to do adequate review of systems as patient is altered. Pertinent positives as obtained by reviewing medical records, speaking to hospital staff, are stated in the HPI, otherwise negative. PHYSICAL EXAMINATION: VITAL SIGNS: Blood pressure 130/76. Respiration is 20, temperature 98.6, heart rate 72. HEENT: Head is normocephalic. Pupils are reactive to light. NECK: Supple. HEART: Regular rate. LUNGS: Diminished breath sounds at the bases. ABDOMEN: Soft, nontender to palpation. Positive PEG. EXTREMITIES: Negative for clubbing, cyanosis. Positive edema. DERMATOLOGIC: No rashes. MUSCULOSKELETAL: Muscular atrophy. NEUROLOGIC: No change in exam. MEDICATION: Reviewed. LABORATORY DATA: Shows a sodium 135, potassium .6, bicarb 24. BUN is 118, creatinine 0.86. White count 9.2, hemoglobin 8.4, hematocrit 26.6, platelet count 278. ASSESSMENT AND PLAN: 1. Nonoliguric acute kidney injury on top of chronic kidney disease with previous baseline creatinine of 0.6 mg/dL. Etiology of current acute kidney injury is unclear, possibly hemodynamics, possible septic acute kidney injury. Please note, the patient's creatinine is grossly overestimating her estimated glomerular filtration rate as the patient has muscular atrophy. The patient has a significant azotemia which may be due to progression of her underlying chronic kidney disease. Other possibilities include hypercatabolic state, questionable gastrointestinal bleed, as well as high-protein diet. Plan at this point is to change tube feeding to Nepro. Will also continue current treatment plan of supportive care, renally dose medications for nephrotoxins. Continue antibiotic therapy. Will hold diuretic therapy. Will monitor closely. 2. Hyperkalemia. Etiology is multifactorial secondary to acute kidney injury, chronic kidney disease, angiotension-inhibiting enzyme therapy, and high potassium load. Plan is to discontinue angiotension-inhibiting enzyme. Will change tube feeding to Nepro. Continue to monitor serum potassium level. 3. Mineral bone disorder. Will monitor calcium and phosphorus levels. 4. Anemia. Monitor hemoglobin and hematocrit levels. 5. Sepsis secondary to healthcare-associated pneumonia. Continue current antibiotic regimen. 6. Ventilatory respiratory failure. Vent settings have been reviewed. Continue to monitor. 7. Cardiomyopathy. Continue medical management. Hold diuretic therapy at this time. 8. Dysphagia status post percutaneous endoscopic gastrostomy. Continue tube feeding. 9. Quadriplegia due to muscular dystrophy. 10. Hypertension. Continue current medical management. 11. History of ascites. Thank you, Dr. Brown, for this interesting consult. It will be a pleasure to follow the patient with you throughout the hospital course. Dictated By: Raymon Giordano DO /reynaldo/arden /Document#: [id number]
--- NOTE | 2016-09-16 08:03 | CONS ---
Date/Time of Note Date/Time of Note DATE: 09/16/16 TIME: 07:59 Assessment/Plan Assessment/Plan Additional Assessment/Plan From a palliative care standpoint I will obtain old medical records ask the assistance of case management to contact family members for conference. Patient has high risk of recurrent hospitalizations CODE STATUS should be addressed, consideration of POLST form addressed prior to discharge. Other palliative care consultation issues will be addressed with family members or patient's agent. Consultation Date/Type/Reason Admit Date/Time Sep 15, 2016 at 01:59 Date of Consultation: Sep 16, 2016 Reason for Consultation Palliative Hx of Present Illness 50-year-old female resident of a subacute facility was PEG trach admitted with healthcare acquired pneumonia. We have an incomplete database except the patient has multiple comorbid major medical problems including muscular dystrophy morbid obesity type 2 diabetes cardiomyopathy with an EF of 30-35 per. When brought to the emergency room 100% FiO2 for sats were 100 she was diagnosed with bilateral infiltrate and admitted. Patient is a non-historian, reason to be ascertained from patient's old medical records or family members. It is noted in patient's medical records that she has altered mental status etiology unknown. Social History Alcohol Use: other Smoking Status: Unknown if ever smoked Drug Use: none Exam/Review of Systems Vital Signs Vitals Vital Signs Date Time Temp Pulse Resp B/P Pulse Ox O2 Delivery O2 Flow Rate FiO2 09/16/16 05:28 67 09/16/16 05:07 18 96 45 09/16/16 04:00 98.3 110/55 09/15/16 04:30 Mechanical Ventilator Intake and Output 09/15/16 09/15/16 09/16/16 15:00 23:00 07:00 Intake Total 590 ml 300 ml Output Total 1200 ml Balance -610 ml 300 ml Exam Constitutional: frail, non-verbal, obese Eyes: EOMI, PERRL, nl conjunctiva, nl lids, nl sclera Neck: non-tender, supple Respiratory: congested cough, crackles/rales, diminished breath sounds Cardiovascular: nl pulses, regular rate and rhythm Gastrointestinal: nl liver, spleen, non-tender, soft Neurological: confused, focal weakness, lethargic Results Result Diagram: 09/15/16 0702 09/15/16 0702 Results 24 hrs Laboratory Tests Test 09/15/16 09:51 Blood Gas Specimen Source Blood arterial Arterial Blood Date Drawn 09/15/2016 10:10:00 AM Arterial Blood pH (Temp corrected) 7.372 Arterial Blood pCO2 (Temp correct) 36.9 Arterial Blood pO2 (Temp corrected) 125.8 H Arterial Blood HCO3 20.9 L Arterial Blood Base Excess -3.8 L Arterial Blood Oxygen Saturation 98.1 H Chad Test ACCEPTAB Arterial Blood Gas Puncture Site Right Radial Arterial Blood Carboxyhemoglobin 0.3 Arterial Blood Methemoglobin 0.4 Blood Gas A-a O2 Differential 153.1 H Oxyhemoglobin Percent 97.4 Total Hemoglobin 10.1 L Blood Gas Temperature 37.0 Blood Gas Respiration Rate 18.0 Blood Gas Actual Respiration Rate 18 Blood Gas Modality VENT - AC FiO2 45.0 Blood Gas Tidal Volume 550.0 Blood Gas Low PEEP Setting 5.0 Blood Gas Notified Whom TM Blood Gas Notified Time 09/15/2016 10:24:58 AM Medications Medications Current Medications Lorazepam (Ativan) 0.5 mg Q6H PRN IV ANXIETY Last administered on 09/15/16 16: 29; Admin Dose 0.5 MG; Start 09/15/16 at 06:30 Ondansetron HCl (Zofran Inj) 4 mg Q6H PRN IV NAUSEA AND/OR VOMITING; Start 09/15 at 06:30 Acetaminophen (Tylenol Tab) 650 mg Q6H PRN PO PAIN LEVEL 1-3 OR FEVER; Start at 06:30 Acetaminophen (Tylenol Supp) 650 mg Q6H PRN [place] PAIN LEVEL 1-3 OR FEVER; Start 09/15/16 at 06:30 Morphine Sulfate 2 mg 2 mg Q4H PRN IV PAIN LEVEL 7-10 Last administered on 06:11; Admin Dose 2 MG; Start 09/15/16 at 06:30 Cefepime HCl (Maxipime 1gm/50 ml (Pmx)) 50 ml @ 100 mls/hr Q12 IVPB Last administered on 09/15/16 21:36; Admin Dose 100 MLS/HR; Start 09/15/16 at 11:00 Amiodarone HCl (Cordarone) 200 mg DAILY GTB Last administered on 09/15/16 09:24 ; Admin Dose 200 MG; Start 09/15/16 at 09:00 Bisacodyl (Dulcolax Supp) 10 mg Q24H PRN [place] CONSTIPATION; Start 09/15/16 at 06: 30 Chlorhexidine Gluconate (Peridex) 15 ml BID MM Last administered on 09/15/16 21 :36; Admin Dose 15 ML; Start 09/15/16 at 09:00 Docusate Sodium (Colace) 200 mg QHS PRN PO CONSTIPATION; Start 09/15/16 at 06:30 Lisinopril (Zestril) 2.5 mg BID GTB Last administered on 09/15/16 09:24; Admin Dose 2.5 MG; Start 09/15/16 at 09:00; Status Future Hold Pantoprazole (Protonix Tab) 40 mg DAILY PO Last administered on 09/15/16 09:24 ; Admin Dose 40 MG; Start 09/15/16 at 09:00 Epoetin Kt (Epogen (Non Esrd/Non Oncology)) 3,000 units MoWeFr@17 SC ; Start 09/16/16 at 17:00 Epoetin Kt 2000 units 2,000 units MoWeFr@17 SC ; Start 09/16/16 at 17:00 Vancomycin HCl/ Sodium Chloride (Vancocin/NS) 250 ml @ 83.333 mls/ hr Q12H IVPB Last administered on 09/15/16 23:33; Admin Dose 83.333 MLS/HR; Start at 10:00 Diphenhydramine HCl (Benadryl) 25 mg Q6H PRN IV ITCHING Last administered on 23:33; Admin Dose 25 MG; Start 09/15/16 at 21:00 GOVIND PAGE Sep 16, 2016 08:02
[2016-09-16] MEDS: PANTOPRAZOLE (EC) 40 MG TAB PO SCH (08:21)
[2016-09-16] MEDS: CHLORHEXIDINE GLUCONATE 15 ML UD CUP MM SCH ×2 (08:22→22:28)
[2016-09-16 08:24] LABS: BASOPHILS % 0.5 % (0.0-2.0); EOSINOPHILS # 0.8 10^3/ul (0.0-0.5); EOSINOPHILS % 10.6 % (0.0-7.0); HEMATOCRIT 29.4 % (37.0-47.0); HEMOGLOBIN 8.9 g/dl (12.0-16.0); LYMPHOCYTES # 0.7 10^3/ul (0.8-2.9); MEAN CORPUSCULAR HEMOGLOBIN 28.8 pg (29.0-33.0); MEAN CORPUSCULAR HGB CONC 30.3 g/dl (32.0-37.0); MEAN CORPUSCULAR VOLUME 95.1 fl (82.0-101.0); MEAN PLATELET VOLUME 10.4 fl (7.4-10.4); MONOCYTE # 0.6 10^3/ul (0.3-0.9); MONOCYTES % 7.7 % (0.0-11.0); NEUTROPHIL # 5.3 10^3/ul (1.6-7.5); NEUTROPHILS % 71.7 % (39.0-77.0); PLATELET COUNT 295 10^3/UL (140-415); RED BLOOD COUNT 3.09 10^6/ul (4.20-5.40); RED CELL DISTRIBUTION WIDTH 19.8 % (11.5-14.5); WHITE BLOOD COUNT 7.4 10^3/ul (4.8-10.8)
[2016-09-16] MEDS: AMIODARONE 200 MG TAB GTB SCH (08:26)
[2016-09-16] MEDS: CEFEPIME 1GM/50 ML (PMX) 50 ML IVPB SCH ×2 (08:27→22:29)
[2016-09-16 08:42] LABS: CALCIUM 8.6 mg/dl (8.4-10.2); CREATININE 0.66 mg/dl (0.44-1.00); MAGNESIUM 2.6 mg/dl (1.7-2.5); PHOSPHORUS 6.7 mg/dl (2.5-4.9); POTASSIUM 3.6 mmol/L (3.5-5.1)
[2016-09-16] MEDS ORDERED: EPOETIN 4000 UNITS/ML VIAL (ONCOLOGY) SC SCH (09:00)
--- NOTE | 2016-09-16 10:06 | PN ---
DATE: 09/16/2016 SUBJECTIVE DATA: Patient remains critical but stable on full ventilatory support. No other events noted. No hemoptysis, hematemesis, hematochezia. OBJECTIVE DATA: VITAL SIGNS: Blood pressure 92/52, respirations 25, pulse 60, temperature 97.5. HEENT: Head is normocephalic. NECK: Supple. CARDIAC: Regular rate. LUNGS: Show diminished breath sounds at the base. ABDOMEN: Soft, nontender to palpation. No rebound or guarding. EXTREMITIES: Negative for clubbing or cyanosis. Noted edema, positive. DERMATOLOGIC: Clean. No rashes. MUSCULOSKELETAL: No joint effusion. NEUROLOGIC: No change in exam. MEDICATIONS: Reviewed. LABORATORY AND DIAGNOSTIC DATA: From 09/16 is pending. The patient's repeat urinalysis shows hyaline cysts. No proteinuria. No pyuria. Renal ultrasound is pending. ASSESSMENT AND PLAN: 1. Nonoliguric acute kidney injury on top of chronic kidney disease with previous baseline creatinine of 0.6 to 0.7 mg/dL. Etiology of acute kidney injury is likely due to hemodynamics, questionable sepsis. Please note, the patient's creatinine is grossly overestimating her estimated glomerular filtration rate, as patient has significant muscular atrophy. Patient also has underlying azotemia, which is likely due to underlying chronic kidney disease. Other contributing factors include hypercatabolic state, diuretic therapy, high-protein diet and questionable gastrointestinal bleed. The plan at this point, is to follow up renal panel. Patient's tube feeding was changed to Nepro, which is low protein and low potassium. We will follow up renal ultrasound. We will continue current treatment plan, renally dose all meds, avoid nephrotoxins. Would consider holding diuretic therapy and monitor closely. 2. Hyperkalemia. Etiology is multifactorial secondary to acute kidney injury, chronic kidney disease, JUAN inhibitor, in conjunction with high potassium load. Patient's JUAN inhibitor was discontinued. Patient's tube feeding was placed on Nepro, low potassium. We will monitor closely. 3. Mineral bone disorder. Monitor calcium and phosphorus levels. 4. Anemia. Monitor H and H levels. 5. Sepsis secondary to azul-care associated pneumonia. Continue current antibiotic regimen. 6. Ventilatory-dependent respiratory failure. Vent settings reviewed. 7. History of cardiomyopathy. Continue current medical management. 8. Dysphagia/percutaneous endoscopic gastrostomy tube feeding. 9. Quadriplegia due to muscular dystrophy. 10. Hypertension. Continue current medical regimen. 11. History of ascites. Dictated By: Raymon Giordano DO /reynaldo/willy /Document#: [id number]
--- NOTE | 2016-09-16 11:10 | RADRPT ---
PROCEDURE: Retroperitoneal US. CLINICAL INDICATION: Renal insufficiency TECHNIQUE: Multiple sonographic images of the kidneys and retroperitoneum were obtained. The imag es were reviewed on a PACS workstation. COMPARISON: No prior studies are available for comparison. FINDINGS: The right kidney is are normal in size, contour, cortical thickness and cortical echogenicity. The right kidney measures 10.7 cm. The left kidney and urinary bladder could not be visualized. There is a moderate amount of ascites. RPTAT: AA IMPRESSION: Limited study. Normal appearance of the right kidney. Left kidney and urinary bladder could not be seen. Moderate amount of ascites. .Gil Carlin MD, MD Date Time Electronically viewed and signed by .Gil Carlin MD, MD on 09/16/2016 11:10 .S/
[2016-09-16] MEDS: VANCOMYCIN 1.25 GM in SOD CHLORIDE 0.9% 250 ML IVPB SCH ×2 (11:13→22:00)
[2016-09-16] MEDS: DIPHENHYDRAMINE 50 MG INJ IV PRN (11:21)
[2016-09-16] MEDS: ARTIFICIAL TEARS 15 ML OPH BOTH EYES PRN (11:22)
--- NOTE | 2016-09-16 11:58 | PN ---
Date/Time of Note Date/Time of Note DATE: 09/16/16 TIME: 11:52 Assessment/Plan VTE Prophylaxis VTE Prophylaxis Intervention: SCD's Lines/Catheters IV [facility]ter Type (from [facility]): Peripheral IV Urinary Cath still in place: Yes Reason Cath still needed: urinary retention Assessment/Plan Chief Complaint/Hosp Course Assessment and plan: 50-year-old female with past medical history of quadriplegia, muscular dystrophy, trach/vent dependent respiratory failure, anemia, ascites, dysphagia status post PEG tube feeding, hypertension, anxiety, diabetes mellitus, GERD, cardiomyopathy with EF of 30% to 35%, AICD who was sent from [facility] for hypoxia and AMS, likely secondary to pneumonia. 1. Healthcare associated pneumonia:- Patient for hypoxemia most likely secondary to a pneumonia, which also appears to be multifocal pneumonia. -Continue antibiotics. -Follow-up culture. Consider ID consult 2. Chronic Trach/vent dependent respiratory failure - Continue trach support. Follow-up pulmonary recommended 3. Cadiomyopathy with EF of 30% to 35%, AICD -continue current cardiac medications 4. Hyperkalemia-resolved, follow-up renal REC'S. 5. Altered mentation-slightly improved, monitor for now. 6. Dysphagia s/p PEG tube-continue tube feeds as tolerated. 7. Diabetes with hypoglycemia-sliding scale insulin 8. History of ascites, requiring paracentesis-monitor abdomen. 9. Azotemia-slightly improved, but still very elevated BUN. Follow-up renal recommendations 10. History of hypertension-continue current meds 11. History of quadriplegia and the muscular dystrophy -monitor Problems: Subjective 24 Hr Interval Summary Free Text/Dictation No acute events overnight. Patient seen by renal, palliative, and pulmonary teams. Exam/Review of Systems Vital Signs Vitals Vital Signs Date Time Temp Pulse Resp B/P Pulse Ox O2 Delivery O2 Flow Rate FiO2 09/16/16 11:09 97.6 60 18 104/53 100 09/16/16 08:39 45 09/15/16 04:30 Mechanical Ventilator Intake and Output 09/15/16 09/15/16 09/16/16 15:00 23:00 07:00 Intake Total 590 ml 300 ml Output Total 1200 ml Balance -610 ml 300 ml Exam Constitutional: other -patient self suctioning herself, asking to turn the volume up on the TV Head: atraumatic, normocephalic Neck: other (Trach tube in place) Respiratory: diminished breath sounds Cardiovascular: nl pulses, regular rate and rhythm Gastrointestinal: other (PEG tube in place), soft Extremities: edema Results Result Diagram: 09/16/16 0745 09/16/16 0745 Results 24 hrs Laboratory Tests Test 09/16/16 07:45 White Blood Count 7.4 Red Blood Count 3.09 L Hemoglobin 8.9 L Hematocrit 29.4 L Mean Corpuscular Volume 95.1 Mean Corpuscular Hemoglobin 28.8 L Mean Corpuscular Hemoglobin Concent 30.3 L Red Cell Distribution Width 19.8 H Platelet Count 295 Mean Platelet Volume 10.4 Neutrophils % 71.7 Lymphocytes % 9.0 L Monocytes % 7.7 Eosinophils % 10.6 H Basophils % 0.5 Nucleated Red Blood Cells % 0.0 Neutrophils # 5.3 Lymphocytes # 0.7 L Monocytes # 0.6 Eosinophils # 0.8 H Basophils # 0.0 Nucleated Red Blood Cells # 0.0 Sodium Level 141 Potassium Level 3.6 Chloride Level 102 Carbon Dioxide Level 23 Anion Gap 20 H Blood Urea Nitrogen 110 H Creatinine 0.66 Glucose Level 144 Calcium Level 8.6 Phosphorus Level 6.7 H Magnesium Level 2.6 H Medications Medications Current Medications Lorazepam (Ativan) 0.5 mg Q6H PRN IV ANXIETY Last administered on 09/15/16 16: 29; Admin Dose 0.5 MG; Start 09/15/16 at 06:30 Ondansetron HCl (Zofran Inj) 4 mg Q6H PRN IV NAUSEA AND/OR VOMITING; Start 09/15 at 06:30 Acetaminophen (Tylenol Tab) 650 mg Q6H PRN PO PAIN LEVEL 1-3 OR FEVER; Start at 06:30 Acetaminophen (Tylenol Supp) 650 mg Q6H PRN [place] PAIN LEVEL 1-3 OR FEVER; Start 09/15/16 at 06:30 Morphine Sulfate 2 mg 2 mg Q4H PRN IV PAIN LEVEL 7-10 Last administered on 06:11; Admin Dose 2 MG; Start 09/15/16 at 06:30 Cefepime HCl (Maxipime 1gm/50 ml (Pmx)) 50 ml @ 100 mls/hr Q12 IVPB Last administered on 09/16/16 08:27; Admin Dose 100 MLS/HR; Start 09/15/16 at 11:00 Amiodarone HCl (Cordarone) 200 mg DAILY GTB Last administered on 09/16/16 08:26 ; Admin Dose 200 MG; Start 09/15/16 at 09:00 Bisacodyl (Dulcolax Supp) 10 mg Q24H PRN [place] CONSTIPATION; Start 09/15/16 at 06: 30 Chlorhexidine Gluconate (Peridex) 15 ml BID MM Last administered on 09/16/16 08 :22; Admin Dose 15 ML; Start 09/15/16 at 09:00 Docusate Sodium (Colace) 200 mg QHS PRN PO CONSTIPATION; Start 09/15/16 at 06:30 Lisinopril (Zestril) 2.5 mg BID GTB Last administered on 09/15/16 09:24; Admin Dose 2.5 MG; Start 09/15/16 at 09:00; Status Future Hold Pantoprazole (Protonix Tab) 40 mg DAILY PO Last administered on 09/16/16 08:21 ; Admin Dose 40 MG; Start 09/15/16 at 09:00 Epoetin Kt (Epogen (Non Esrd/Non Oncology)) 3,000 units MoWeFr@17 SC ; Start 09/16/16 at 17:00 Epoetin Kt 2000 units 2,000 units MoWeFr@17 SC ; Start 09/16/16 at 17:00 Vancomycin HCl/ Sodium Chloride (Vancocin/NS) 250 ml @ 83.333 mls/ hr Q12H IVPB Last administered on 09/16/16 11:13; Admin Dose 83.333 MLS/HR; Start at 10:00 Diphenhydramine HCl (Benadryl) 25 mg Q6H PRN IV ITCHING Last administered on 11:21; Admin Dose 25 MG; Start 09/15/16 at 21:00 FROY LEIJA Sep 16, 2016 11:58
[2016-09-16] MEDS: EPOETIN 2000 UNITS/ML INJ (NON ESRD/NON ONCOLOGY) SC SCH (17:14)
[2016-09-16] MEDS: EPOETIN 3000 UNITS/ML (NON ESRD/NON ONCOLOGY) SC SCH (17:15)
[2016-09-17] VITALS (24 sets, daily range): BP systolic 98–130; BP diastolic 43–66; PULSE 59–63; RESP 18–28
[2016-09-17] MEDS: ALBUTEROL 18 GM INHALER INH SCH ×7 (01:01→21:13)
[2016-09-17] MEDS: BUMETANIDE 1 MG TAB GTB SCH ×2 (05:43→17:28)
[2016-09-17 07:42] LABS: BASOPHILS % 0.7 % (0.0-2.0); EOSINOPHILS # 0.7 10^3/ul (0.0-0.5); EOSINOPHILS % 12.7 % (0.0-7.0); HEMATOCRIT 25.4 % (37.0-47.0); HEMOGLOBIN 7.6 g/dl (12.0-16.0); LYMPHOCYTES # 0.8 10^3/ul (0.8-2.9); LYMPHOCYTES % 14.7 % (15.0-51.0); MEAN CORPUSCULAR HGB CONC 29.9 g/dl (32.0-37.0); MEAN CORPUSCULAR VOLUME 96.9 fl (82.0-101.0); MEAN PLATELET VOLUME 10.3 fl (7.4-10.4); MONOCYTE # 0.4 10^3/ul (0.3-0.9); MONOCYTES % 7.6 % (0.0-11.0); NEUTROPHIL # 3.6 10^3/ul (1.6-7.5); NEUTROPHILS % 63.6 % (39.0-77.0); PLATELET COUNT 242 10^3/UL (140-415); RED BLOOD COUNT 2.62 10^6/ul (4.20-5.40); RED CELL DISTRIBUTION WIDTH 19.8 % (11.5-14.5); WHITE BLOOD COUNT 5.7 10^3/ul (4.8-10.8)
[2016-09-17 08:12] LABS: CALCIUM 8.4 mg/dl (8.4-10.2); CREATININE 0.59 mg/dl (0.44-1.00); MAGNESIUM 2.5 mg/dl (1.7-2.5); PHOSPHORUS 6.2 mg/dl (2.5-4.9); POTASSIUM 3.1 mmol/L (3.5-5.1)
[2016-09-17] MEDS ORDERED: POTASSIUM CHLORIDE 20 MEQ POWDER FOR ORAL SOLN GTB ONE (09:00)
[2016-09-17] MEDS: CHLORHEXIDINE GLUCONATE 15 ML UD CUP MM SCH ×2 (10:08→21:53)
[2016-09-17] MEDS: DIPHENHYDRAMINE 50 MG INJ IV PRN (10:08)
[2016-09-17] MEDS: PANTOPRAZOLE (EC) 40 MG TAB PO SCH (10:08)
[2016-09-17] MEDS: CEFEPIME 1GM/50 ML (PMX) 50 ML IVPB SCH ×2 (10:11→21:52)
[2016-09-17] MEDS: AMIODARONE 200 MG TAB GTB SCH (10:15)
--- NOTE | 2016-09-17 10:36 | PN ---
DATE: 09/17/2016 SUBJECTIVE DATA: The patient is stable. No events overnight. No fevers, chills, nausea, vomiting. OBJECTIVE DATA: VITAL SIGNS: Blood pressure 90/43, respirations 21, pulse 60, temperature 98.1. HEENT: Head is normocephalic. NECK: Supple. HEART: Regular rate. LUNGS: Diminished breath sounds at the bases. ABDOMEN: Soft, nontender to palpation. No rebound or guarding. EXTREMITIES: Negative for clubbing, cyanosis. Positive edema. DERMATOLOGIC: No rashes. MUSCULOSKELETAL: No joint effusion. NEUROLOGIC: No change in exam. The patient's medications have been reviewed. LABORATORY DATA: Sodium 144, potassium , chloride 106. BUN , creatinine 0.59. White count 5.7, hemoglobin 10.6, hematocrit 25.4; platelet count is 242. ASSESSMENT AND PLAN: 1. Nonoliguric acute kidney injury on top of chronic kidney disease with previous baseline creatinine 0.6 mg/dL. Etiology secondary to hemodynamics. Please note, the patient's creatinine is grossly overestimating the patient's glomerular filtration rate as the patient has significant muscular atrophy. The patient's underlying azotemia is multifactorial secondary to chronic kidney disease, hypercatabolic state, diuretic therapy, high-protein diet. The patient has been placed on a low-protein, renal diet. Will continue to monitor BUN levels closely. Otherwise continue current treatment, supportive care, and renally dose all medications. 2. Hypokalemia. Will replete potassium chloride. 3. Mineral bone disorder. Monitor calcium and phosphorus levels. Consider starting phosphate binders. 4. Anemia. Monitor hemoglobin and hematocrit levels. 5. Sepsis secondary to healthcare-associated pneumonia. Continue current antibiotic regimen. 6. Ventilatory-dependent respiratory failure. Vent settings reviewed. Arterial blood gases reviewed. 7. History of cardiomyopathy. Continue medical management. 8. Dysphagia status post percutaneous endoscopic gastrostomy. Continue tube feeding. 9. Quadriplegia secondary to muscular dystrophy. 10. Hypertension. Continue current medical regimen. 11. History of ascites. Dictated By: Raymon Giordano DO /reynaldo/arden /Document#: [id number]
[2016-09-17] MEDS ORDERED: GLUCAGON 1 MG INJ IM PRN ×2 (12:00→22:45)
[2016-09-17] MEDS ORDERED: DEXTROSE 50% 50 ML SYRINGE IV PRN ×3 (12:00→22:45)
[2016-09-17] MEDS ORDERED: GLUCOSE GEL 15 GRAM TUBE PO PRN ×4 (12:00→22:45)
[2016-09-17] MEDS ORDERED: GLUCOSE GEL 15 GRAM TUBE BUCCAL PRN ×2 (12:00→22:45)
--- NOTE | 2016-09-17 12:18 | PN ---
Date/Time of Note Date/Time of Note DATE: 09/17/16 TIME: 12:16 Assessment/Plan VTE Prophylaxis VTE Prophylaxis Intervention: SCD's Lines/Catheters IV C[facility]ter Type (from [facility]): Peripheral IV Urinary Cath still in place: Yes Reason Cath still needed: urinary retention Assessment/Plan Chief Complaint/Hosp Course Assessment and plan: 50-year-old female with past medical history of quadriplegia, muscular dystrophy, trach/vent dependent respiratory failure, anemia, ascites, dysphagia status post PEG tube feeding, hypertension, anxiety, diabetes mellitus, GERD, cardiomyopathy with EF of 30% to 35%, AICD who [facility] hypoxia and AMS, likely secondary to pneumonia. 1. Healthcare associated pneumonia:- Patient for hypoxemia most likely secondary to a pneumonia, which also appears to be multifocal pneumonia. Slowly improving. -Continue antibiotics. -Follow-up culture. Consider ID consult if does not improve 2. Chronic Trach/vent dependent respiratory failure - Continue trach support. Follow-up pulmonary recommended 3. Cardiomyopathy with EF of 30% to 35%, AICD -continue current cardiac medications 4. Hyperkalemia-resolved, follow-up renal REC'S. 5. Altered mentation-slightly improved, monitor for now. 6. Dysphagia s/p PEG tube-continue tube feeds as tolerated. 7. Diabetes with hypoglycemia-sliding scale insulin 8. History of ascites, requiring paracentesis-monitor abdomen. 9. Azotemia-slightly improved, but still very elevated BUN. Follow-up renal recommendations. On Bumex p.o. twice daily 10. History of hypertension-continue current meds 11. History of quadriplegia secondary to muscular dystrophy -monitor 12. Anemia: Hemoglobin today 7.6. Yesterday 8.9. -We will check stat H/H. If still low, consider transfusion Problems: Subjective 24 Hr Interval Summary Free Text/Dictation No acute events overnight. Seen by renal team this morning. Exam/Review of Systems Vital Signs Vitals Vital Signs Date Time Temp Pulse Resp B/P Pulse Ox O2 Delivery O2 Flow Rate FiO2 09/17/16 11:41 98.0 60 28 116/56 100 09/17/16 11:10 45 09/15/16 04:30 Mechanical Ventilator Intake and Output 09/16/16 09/16/16 09/17/16 15:00 23:00 07:00 Intake Total 800 ml 585 ml 570 ml Output Total 675 ml 920 ml 800 ml Balance 125 ml -335 ml -230 ml Exam Constitutional: other -patient self suctioning herself Head: atraumatic, normocephalic Neck: other (Trach tube in place) Respiratory: diminished breath sounds Cardiovascular: nl pulses, regular rate and rhythm Gastrointestinal: other (PEG tube in place), soft Extremities: edema Results Result Diagram: 09/17/16 0652 09/17/16 0652 Results 24 hrs Laboratory Tests Test 09/16/16 21:10 09/17/16 06:52 Vancomycin Level Trough 46.5 *H White Blood Count 5.7 # Red Blood Count 2.62 L Hemoglobin 7.6 L Hematocrit 25.4 L Mean Corpuscular Volume 96.9 Mean Corpuscular Hemoglobin 29.0 Mean Corpuscular Hemoglobin Concent 29.9 L Red Cell Distribution Width 19.8 H Platelet Count 242 Mean Platelet Volume 10.3 Neutrophils % 63.6 Lymphocytes % 14.7 L Monocytes % 7.6 Eosinophils % 12.7 H Basophils % 0.7 Nucleated Red Blood Cells % 0.0 Neutrophils # 3.6 Lymphocytes # 0.8 Monocytes # 0.4 Eosinophils # 0.7 H Basophils # 0.0 Nucleated Red Blood Cells # 0.0 Sodium Level 144 Potassium Level 3.1 L Chloride Level 106 Carbon Dioxide Level 23 Anion Gap 18 H Blood Urea Nitrogen 109 H Creatinine 0.59 Glucose Level 138 Calcium Level 8.4 Phosphorus Level 6.2 H Magnesium Level 2.5 Medications Medications Current Medications Lorazepam (Ativan) 0.5 mg Q6H PRN IV ANXIETY Last administered on 09/15/16 16: 29; Admin Dose 0.5 MG; Start 09/15/16 at 06:30 Ondansetron HCl (Zofran Inj) 4 mg Q6H PRN IV NAUSEA AND/OR VOMITING; Start 09/15 at 06:30 Acetaminophen (Tylenol Tab) 650 mg Q6H PRN PO PAIN LEVEL 1-3 OR FEVER Last administered on 09/16/16 20:10; Admin Dose 650 MG; Start 09/15/16 at 06:30 Acetaminophen (Tylenol Supp) 650 mg Q6H PRN [place] PAIN LEVEL 1-3 OR FEVER; Start 09/15/16 at 06:30 Morphine Sulfate 2 mg 2 mg Q4H PRN IV PAIN LEVEL 7-10 Last administered on 06:11; Admin Dose 2 MG; Start 09/15/16 at 06:30 Cefepime HCl (Maxipime 1gm/50 ml (Pmx)) 50 ml @ 100 mls/hr Q12 IVPB Last administered on 09/17/16 10:11; Admin Dose 100 MLS/HR; Start 09/15/16 at 11:00 Amiodarone HCl (Cordarone) 200 mg DAILY GTB Last administered on 09/17/16 10:15 ; Admin Dose 200 MG; Start 09/15/16 at 09:00 Bisacodyl (Dulcolax Supp) 10 mg Q24H PRN [place] CONSTIPATION; Start 09/15/16 at 06: 30 Chlorhexidine Gluconate (Peridex) 15 ml BID MM Last administered on 09/17/16 10 :08; Admin Dose 15 ML; Start 09/15/16 at 09:00 Docusate Sodium (Colace) 200 mg QHS PRN PO CONSTIPATION; Start 09/15/16 at 06:30 Lisinopril (Zestril) 2.5 mg BID GTB Last administered on 09/15/16 09:24; Admin Dose 2.5 MG; Start 09/15/16 at 09:00; Status Future Hold Pantoprazole (Protonix Tab) 40 mg DAILY PO Last administered on 09/17/16 10:08 ; Admin Dose 40 MG; Start 09/15/16 at 09:00 Epoetin Kt (Epogen (Non Esrd/Non Oncology)) 3,000 units MoWeFr@17 SC Last administered on 09/16/16 17:15; Admin Dose 3,000 UNITS; Start 09/16/16 at 17:00 Epoetin Kt 2000 units 2,000 units MoWeFr@17 SC Last administered on 09/16/16 17:14; Admin Dose 2,000 UNITS; Start 09/16/16 at 17:00 Vancomycin HCl/ Sodium Chloride (Vancocin/NS) 250 ml @ 83.333 mls/ hr Q12H IVPB Last administered on 09/16/16 22:00; Admin Dose 83.333 MLS/HR; Start at 10:00; Status Future Hold Diphenhydramine HCl (Benadryl) 25 mg Q6H PRN IV ITCHING Last administered on t 10:08; Admin Dose 25 MG; Start 09/15/16 at 21:00 Miscellaneous Information (*Rx Drug Level Order Reminder*) RANDOM VANCOMYCIN LEVEL ... ONCE ONCE XX ; Start 09/18/16 at 05:00; Stop 09/18/16 at 05:01 Tramadol HCl (Ultram) 50 mg Q6H PRN GTB PAIN LEVEL 6-10; Start 09/17/16 at 12:00 Diagnostic Test (Pha) (Accu-Chek) 1 ea 02 XX ; Start 09/18/16 at 02:00 Diagnostic Test (Pha) (Accu-Chek) 1 ea 02 XX ; Start 09/18/16 at 02:00 Miscellaneous Information 1 ea NOTE XX ; Start 09/17/16 at 12:00 Glucose (Glutose) 15 gm Q15M PRN PO DECREASED GLUCOSE; Start 09/17/16 at 12:00 Glucose (Glutose) 22.5 gm Q15M PRN PO DECREASED GLUCOSE; Start 09/17/16 at 12:00 Dextrose (D50w Syringe) 25 ml Q15M PRN IV DECREASED GLUCOSE; Start 09/17/16 at 12:00 Dextrose (D50w Syringe) 50 ml Q15M PRN IV DECREASED GLUCOSE; Start 09/17/16 at 12:00 Glucagon (Glucagen) 1 mg Q15M PRN IM DECREASED GLUCOSE; Start 09/17/16 at 12:00 Glucose (Glutose) 15 gm Q15M PRN BUCCAL DECREASED GLUCOSE; Start 09/17/16 at 12: 00 FROY LEIJA Sep 17, 2016 12:17
--- NOTE | 2016-09-17 12:19 | CONS ---
Date/Time of Note Date/Time of Note DATE: 09/17/16 TIME: 12:12 Assessment/Plan Assessment/Plan Chief Complaint/Hosp Course 50-year-old female resident of a subacute facility was PEG trach admitted with healthcare acquired pneumonia. We have an incomplete database except the patient has multiple comorbid major medical problems including muscular dystrophy morbid obesity type 2 diabetes cardiomyopathy with an EF of 30-35 per. When brought to the emergency room 100% FiO2 for sats were 100 she was diagnosed with bilateral infiltrate and admitted. Patient is a non-historian, reason to be ascertained from patient's old medical records or family members. It is noted in patient's medical records that she has altered mental status etiology unknown. Problems: Additional Assessment/Plan When our conversation today family conference with patient's and. gave me clear past medical history that Alesha was in good shape had a good lifestyle prior to 5 years ago she became extremely ill which required trach and PEG. He is rather unclear as to the etiology but apparently she has been in a subacute facility for the last 5 year recovered her current medical illness I answered all questions and covered her cardiopulmonary condition. Issues that were discusses patient understanding of her current condition her acceptable quality of family's communication preference past experience with serious medical issues. Family has experience with end-of-life issues in that one brother prior to his demise he told family members he did not want to live by any artificial measures. Goals of care were discussed with patient's and his perception of what his would want to have it eventually precipitously decline specifically which she want to remain alive by artificial measure. We discussed CODE STATUS specifically chemical code which may be preferable when patient has a catastrophic change in her condition from a cardiopulmonary or infectious standpoint. At that point patient's and sister began to cry and assured me that they would reconsider CODE STATUS. I assured them that we will continue with current level of care even if she is readmitted but would not prolong her life artificially if they decide to change their decision insofar as artificial life support and full code measures. Consultation Date/Type/Reason Admit Date/Time Sep 15, 2016 at 01:59 Initial Consult Date 09/16/16 Type of Consultation: Pulmonary Exam/Review of Systems Vital Signs Vitals Vital Signs Date Time Temp Pulse Resp B/P Pulse Ox O2 Delivery O2 Flow Rate FiO2 09/17/16 11:41 98.0 60 28 116/56 100 09/17/16 11:10 45 09/15/16 04:30 Mechanical Ventilator Intake and Output 09/16/16 09/16/16 09/17/16 15:00 23:00 07:00 Intake Total 800 ml 585 ml 570 ml Output Total 675 ml 920 ml 800 ml Balance 125 ml -335 ml -230 ml Results Result Diagram: 09/17/16 0652 09/17/16 0652 Results 24 hrs Laboratory Tests Test 09/16/16 21:10 09/17/16 06:52 Vancomycin Level Trough 46.5 *H White Blood Count 5.7 # Red Blood Count 2.62 L Hemoglobin 7.6 L Hematocrit 25.4 L Mean Corpuscular Volume 96.9 Mean Corpuscular Hemoglobin 29.0 Mean Corpuscular Hemoglobin Concent 29.9 L Red Cell Distribution Width 19.8 H Platelet Count 242 Mean Platelet Volume 10.3 Neutrophils % 63.6 Lymphocytes % 14.7 L Monocytes % 7.6 Eosinophils % 12.7 H Basophils % 0.7 Nucleated Red Blood Cells % 0.0 Neutrophils # 3.6 Lymphocytes # 0.8 Monocytes # 0.4 Eosinophils # 0.7 H Basophils # 0.0 Nucleated Red Blood Cells # 0.0 Sodium Level 144 Potassium Level 3.1 L Chloride Level 106 Carbon Dioxide Level 23 Anion Gap 18 H Blood Urea Nitrogen 109 H Creatinine 0.59 Glucose Level 138 Calcium Level 8.4 Phosphorus Level 6.2 H Magnesium Level 2.5 Medications Medications Current Medications Lorazepam (Ativan) 0.5 mg Q6H PRN IV ANXIETY Last administered on 09/15/16 16: 29; Admin Dose 0.5 MG; Start 09/15/16 at 06:30 Ondansetron HCl (Zofran Inj) 4 mg Q6H PRN IV NAUSEA AND/OR VOMITING; Start 09/15 at 06:30 Acetaminophen (Tylenol Tab) 650 mg Q6H PRN PO PAIN LEVEL 1-3 OR FEVER Last administered on 09/16/16 20:10; Admin Dose 650 MG; Start 09/15/16 at 06:30 Acetaminophen (Tylenol Supp) 650 mg Q6H PRN ID PAIN LEVEL 1-3 OR FEVER; Start 09/15/16 at 06:30 Morphine Sulfate 2 mg 2 mg Q4H PRN IV PAIN LEVEL 7-10 Last administered on 06:11; Admin Dose 2 MG; Start 09/15/16 at 06:30 Cefepime HCl (Maxipime 1gm/50 ml (Pmx)) 50 ml @ 100 mls/hr Q12 IVPB Last administered on 09/17/16 10:11; Admin Dose 100 MLS/HR; Start 09/15/16 at 11:00 Amiodarone HCl (Cordarone) 200 mg DAILY GTB Last administered on 09/17/16 10:15 ; Admin Dose 200 MG; Start 09/15/16 at 09:00 Bisacodyl (Dulcolax Supp) 10 mg Q24H PRN [place] CONSTIPATION; Start 09/15/16 at 06: 30 Chlorhexidine Gluconate (Peridex) 15 ml BID MM Last administered on 09/17/16 10 :08; Admin Dose 15 ML; Start 09/15/16 at 09:00 Docusate Sodium (Colace) 200 mg QHS PRN PO CONSTIPATION; Start 09/15/16 at 06:30 Lisinopril (Zestril) 2.5 mg BID GTB Last administered on 09/15/16 09:24; Admin Dose 2.5 MG; Start 09/15/16 at 09:00; Status Future Hold Pantoprazole (Protonix Tab) 40 mg DAILY PO Last administered on 09/17/16 10:08 ; Admin Dose 40 MG; Start 09/15/16 at 09:00 Epoetin Kt (Epogen (Non Esrd/Non Oncology)) 3,000 units MoWeFr@17 SC Last administered on 09/16/16 17:15; Admin Dose 3,000 UNITS; Start 09/16/16 at 17:00 Epoetin Kt 2000 units 2,000 units MoWeFr@17 SC Last administered on 09/16/16 17:14; Admin Dose 2,000 UNITS; Start 09/16/16 at 17:00 Vancomycin HCl/ Sodium Chloride (Vancocin/NS) 250 ml @ 83.333 mls/ hr Q12H IVPB Last administered on 09/16/16 22:00; Admin Dose 83.333 MLS/HR; Start at 10:00; Status Future Hold Diphenhydramine HCl (Benadryl) 25 mg Q6H PRN IV ITCHING Last administered on t 10:08; Admin Dose 25 MG; Start 09/15/16 at 21:00 Miscellaneous Information (*Rx Drug Level Order Reminder*) RANDOM VANCOMYCIN LEVEL ... ONCE ONCE XX ; Start 09/18/16 at 05:00; Stop 09/18/16 at 05:01 Tramadol HCl (Ultram) 50 mg Q6H PRN GTB PAIN LEVEL 6-10; Start 09/17/16 at 12:00 Diagnostic Test (Pha) (Accu-Chek) 1 ea 02 XX ; Start 09/18/16 at 02:00 Diagnostic Test (Pha) (Accu-Chek) 1 ea 02 XX ; Start 09/18/16 at 02:00 Miscellaneous Information 1 ea NOTE XX ; Start 09/17/16 at 12:00 Glucose (Glutose) 15 gm Q15M PRN PO DECREASED GLUCOSE; Start 09/17/16 at 12:00 Glucose (Glutose) 22.5 gm Q15M PRN PO DECREASED GLUCOSE; Start 09/17/16 at 12:00 Dextrose (D50w Syringe) 25 ml Q15M PRN IV DECREASED GLUCOSE; Start 09/17/16 at 12:00 Dextrose (D50w Syringe) 50 ml Q15M PRN IV DECREASED GLUCOSE; Start 09/17/16 at 12:00 Glucagon (Glucagen) 1 mg Q15M PRN IM DECREASED GLUCOSE; Start 09/17/16 at 12:00 Glucose (Glutose) 15 gm Q15M PRN BUCCAL DECREASED GLUCOSE; Start 09/17/16 at 12: 00 GOVIND PAGE Sep 17, 2016 12:19
[2016-09-17 12:37] LABS: HEMOGLOBIN 9.7 g/dl (12.0-16.0)
[2016-09-17] MEDS: INSULIN ASPART [NOVOLOG] 3 ML PEN SC SCH ×3 (13:05→22:03)
--- NOTE | 2016-09-17 14:45 | CONS ---
Date/Time of Note Date/Time of Note DATE: 09/17/16 TIME: 14:43 Assessment/Plan Assessment/Plan Additional Assessment/Plan Ventilator setting; AC of 18, tidal volume 550, PEEP of 5, 45% FiO2. Assessment and recommendations; 1. Patient admitted for CHF exacerbation as well as bilateral pneumonia. 2. Chronic respiratory failure due to muscular dystrophy. 3. Cardiomyopathy. 4. History of cardiac arrhythmia. Continue current treatment. Will obtain follow-up chest x-ray. Consultation Date/Type/Reason Admit Date/Time Sep 15, 2016 at 01:59 Initial Consult Date 09/16/16 Type of Consultation: Pulmonary 24 HR Interval Summary Free Text/Dictation Patient condition stable. Remains awake. Has remained hemodynamically stable. General exam; middle-aged woman, on ventilator via tracheostomy, awake. Currently in no distress. Exam/Review of Systems Vital Signs Vitals Vital Signs Date Time Temp Pulse Resp B/P Pulse Ox O2 Delivery O2 Flow Rate FiO2 09/17/16 13:15 61 18 97 45 09/17/16 11:41 98.0 116/56 09/15/16 04:30 Mechanical Ventilator Intake and Output 09/16/16 09/16/16 09/17/16 15:00 23:00 07:00 Intake Total 800 ml 585 ml 570 ml Output Total 675 ml 920 ml 800 ml Balance 125 ml -335 ml -230 ml Exam HEENT exam; supple neck, no JVD. No lymphadenopathy. Midline trachea. No thyromegaly. Tracheostomy in place. Patient has fair dentition. Pupils are midsize and reactive to light. Chest exam; diminished breath sounds bilaterally. S1-S2 audible, no murmurs. Regular rhythm. There is a pacemaker in the left chest wall. Abdomen exam; soft, nondistended. G-tube in place. Bowel sounds audible. Extremity exam; trace edema. QUOTATION CLERK exam; patient is awake and does not follow any commands. Results Result Diagram: 09/17/16 1230 09/17/16 0652 Results 24 hrs Laboratory Tests Test 09/16/16 21:10 09/17/16 06:52 09/17/16 12:17 09/17/16 12:30 Vancomycin Level Trough 46.5 *H White Blood Count 5.7 # Red Blood Count 2.62 L Hemoglobin 7.6 L 9.7 #L Hematocrit 25.4 L 32.0 #L Mean Corpuscular Volume 96.9 Mean Corpuscular Hemoglobin 29.0 Mean Corpuscular Hemoglobin Concent 29.9 L Red Cell Distribution Width 19.8 H Platelet Count 242 Mean Platelet Volume 10.3 Neutrophils % 63.6 Lymphocytes % 14.7 L Monocytes % 7.6 Eosinophils % 12.7 H Basophils % 0.7 Nucleated Red Blood Cells % 0.0 Neutrophils # 3.6 Lymphocytes # 0.8 Monocytes # 0.4 Eosinophils # 0.7 H Basophils # 0.0 Nucleated Red Blood Cells # 0.0 Sodium Level 144 Potassium Level 3.1 L Chloride Level 106 Carbon Dioxide Level 23 Anion Gap 18 H Blood Urea Nitrogen 109 H Creatinine 0.59 Glucose Level 138 Calcium Level 8.4 Phosphorus Level 6.2 H Magnesium Level 2.5 Bedside Glucose 202 Test 09/17/16 13:01 Bedside Glucose 201 Medications Medications Current Medications Lorazepam (Ativan) 0.5 mg Q6H PRN IV ANXIETY Last administered on 09/15/16 16: 29; Admin Dose 0.5 MG; Start 09/15/16 at 06:30 Ondansetron HCl (Zofran Inj) 4 mg Q6H PRN IV NAUSEA AND/OR VOMITING; Start 09/15 at 06:30 Acetaminophen (Tylenol Tab) 650 mg Q6H PRN PO PAIN LEVEL 1-3 OR FEVER Last administered on 09/16/16 20:10; Admin Dose 650 MG; Start 09/15/16 at 06:30 Acetaminophen (Tylenol Supp) 650 mg Q6H PRN [place] PAIN LEVEL 1-3 OR FEVER; Start 09/15/16 at 06:30 Morphine Sulfate 2 mg 2 mg Q4H PRN IV PAIN LEVEL 7-10 Last administered on 06:11; Admin Dose 2 MG; Start 09/15/16 at 06:30 Cefepime HCl (Maxipime 1gm/50 ml (Pmx)) 50 ml @ 100 mls/hr Q12 IVPB Last administered on 09/17/16 10:11; Admin Dose 100 MLS/HR; Start 09/15/16 at 11:00 Amiodarone HCl (Cordarone) 200 mg DAILY GTB Last administered on 09/17/16 10:15 ; Admin Dose 200 MG; Start 09/15/16 at 09:00 Bisacodyl (Dulcolax Supp) 10 mg Q24H PRN [place] CONSTIPATION; Start 09/15/16 at 06: 30 Chlorhexidine Gluconate (Peridex) 15 ml BID MM Last administered on 09/17/16 10 :08; Admin Dose 15 ML; Start 09/15/16 at 09:00 Docusate Sodium (Colace) 200 mg QHS PRN PO CONSTIPATION; Start 09/15/16 at 06:30 Lisinopril (Zestril) 2.5 mg BID GTB Last administered on 09/15/16 09:24; Admin Dose 2.5 MG; Start 09/15/16 at 09:00; Status Future Hold Pantoprazole (Protonix Tab) 40 mg DAILY PO Last administered on 09/17/16 10:08 ; Admin Dose 40 MG; Start 09/15/16 at 09:00 Epoetin Kt (Epogen (Non Esrd/Non Oncology)) 3,000 units MoWeFr@17 SC Last administered on 09/16/16 17:15; Admin Dose 3,000 UNITS; Start 09/16/16 at 17:00 Epoetin Kt 2000 units 2,000 units MoWeFr@17 SC Last administered on 09/16/16 17:14; Admin Dose 2,000 UNITS; Start 09/16/16 at 17:00 Vancomycin HCl/ Sodium Chloride (Vancocin/NS) 250 ml @ 83.333 mls/ hr Q12H IVPB Last administered on 09/16/16 22:00; Admin Dose 83.333 MLS/HR; Start at 10:00; Status Future Hold Diphenhydramine HCl (Benadryl) 25 mg Q6H PRN IV ITCHING Last administered on 10:08; Admin Dose 25 MG; Start 09/15/16 at 21:00 Miscellaneous Information (*Rx Drug Level Order Reminder*) RANDOM VANCOMYCIN LEVEL ... ONCE ONCE XX ; Start 09/18/16 at 05:00; Stop 09/18/16 at 05:01 Tramadol HCl (Ultram) 50 mg Q6H PRN GTB PAIN LEVEL 6-10; Start 09/17/16 at 12:00 Diagnostic Test (Pha) (Accu-Chek) 1 ea 02 XX ; Start 09/18/16 at 02:00 Diagnostic Test (Pha) (Accu-Chek) 1 ea 02 XX ; Start 09/18/16 at 02:00 Miscellaneous Information 1 ea NOTE XX ; Start 09/17/16 at 12:00 Glucose (Glutose) 15 gm Q15M PRN PO DECREASED GLUCOSE; Start 09/17/16 at 12:00 Glucose (Glutose) 22.5 gm Q15M PRN PO DECREASED GLUCOSE; Start 09/17/16 at 12:00 Dextrose (D50w Syringe) 25 ml Q15M PRN IV DECREASED GLUCOSE; Start 09/17/16 at 12:00 Dextrose (D50w Syringe) 50 ml Q15M PRN IV DECREASED GLUCOSE; Start 09/17/16 at 12:00 Glucagon (Glucagen) 1 mg Q15M PRN IM DECREASED GLUCOSE; Start 09/17/16 at 12:00 Glucose (Glutose) 15 gm Q15M PRN BUCCAL DECREASED GLUCOSE; Start 09/17/16 at 12: 00 RAMON COWAN Sep 17, 2016 14:45
--- NOTE | 2016-09-17 16:50 | RADRPT ---
PROCEDURE: X-ray Chest. CLINICAL INDICATION: CHF. TECHNIQUE: Single view chest x-ray. COMPARISON: Exam dated 04/21/2016. FINDINGS: There is a well-positioned tracheostomy and a left-sided multichamber pacemaker defibrilla tor device remains in place. The cardiomediastinal silhouette is enlarged. Extensive bilateral alve olar and interstitial disease is not significantly changed. There are increased layering bilateral e ffusions. There is no pneumothorax. There are no acute osseous abnormalities. IMPRESSION: 1. Cardiomegaly with findings suggestive of severe hydrostatic edema versus multifocal pneumonia, n ot significantly changed. 2. Increasing bilateral effusions. RPTAT: HLBP .Bob Valdez MD, MD Date Time Electronically viewed and signed by .Bob Valdez MD, MD on 09/17/2016 16:50 .P/
--- NOTE | 2016-09-17 20:43 | CONS ---
Date/Time of Note Date/Time of Note DATE: 09/17/16 TIME: 20:33 Assessment/Plan Assessment/Plan Chief Complaint/Hosp Course Assessment: Acute on chronic systolic heart failure Cardiomyopathy, LVEF 35-40% - unclear etiology, unclear if patient has ever had ischemic workup, possibly due to muscular dystrophy Acute kidney injury on chronic kidney disease Healthcare-associated pneumonia - on antibiotics Chronic ventilator-dependent respiratory failure Muscular dystrophy Paroxysmal atrial fibrillation and atrial flutter History of ventricular tachycardia (Torsades de pointes) - status post Bi-V ICD upgrade January 2015 ([employer]) Diabetes mellitus Anemia of chronic disease History of right lower extremity deep vein thrombosis Severe peripheral arterial disease - prior CT LE angio with evidence of HEAT TREATER SFA and severe disease of popliteal Recommendations: - continue Bumex 1mg BID - continue amiodarone 200mg daily - off beta-armando and JUAN inhibitor due to borderline blood pressures and renal failure, resume for systolic heart failure as able - consider restarting on chronic anticoagulation paroxysmal atrial fibrillation and history of deep vein thrombosis when clinically more stable Problems: Consultation Date/Type/Reason Admit Date/Time Sep 15, 2016 at 01:59 Type of Consultation: Cardiology Reason for Consultation congestive heart failure Hx of Present Illness The patient is a 50 year-old female with cardiomyopathy (LVEF 30-35%), chronic ventilator-dependent respiratory failure, and muscular dystrophy who is known to me from cardiology clinic and prior hospitalizations. She now presented with hypoxia and altered mental status, and has been found to have pneumonia and decompensated heart failure. Additional history is limited due to patient's mental status and tracheostomy. Unable to obtain review of systems due to patient's altered mental status. Past Medical History Cardiomyopathy, LVEF 35-40% Chronic ventilator-dependent respiratory failure Muscular dystrophy Paroxysmal atrial fibrillation and atrial flutter History of ventricular tachycardia (Torsades de pointes) - status post Bi-V ICD upgrade January 2015 ([employer]) Diabetes mellitus Anemia of chronic disease History of right lower extremity deep vein thrombosis Severe peripheral arterial disease - prior CT LE angio with evidence of HEAT TREATER SFA and severe disease of popliteal Social History Alcohol Use: none Smoking Status: Never smoker Drug Use: none Exam/Review of Systems Vital Signs Vitals Vital Signs Date Time Temp Pulse Resp B/P Pulse Ox O2 Delivery O2 Flow Rate FiO2 09/17/16 20:04 97.5 63 20 130/66 96 09/17/16 19:25 45 09/15/16 04:30 Mechanical Ventilator Intake and Output 09/16/16 09/16/16 09/17/16 15:00 23:00 07:00 Intake Total 800 ml 585 ml 570 ml Output Total 675 ml 920 ml 800 ml Balance 125 ml -335 ml -230 ml Exam Constitutional: No alert, No distress Psych: No nl mood/affect, No no complaints Head: atraumatic, normocephalic Eyes: nl conjunctiva, nl lids ENMT: nl external ears & nose, nl nasal mucosa & septum Neck: other (tracheostomy) Respiratory: crackles/rales, diminished breath sounds Cardiovascular: irregular rhythm Gastrointestinal: non-tender, soft Extremities: No clubbing, No cyanosis Neurological: No nl mental status, No nl speech Results Result Diagram: 09/17/16 1230 09/17/16 0652 Results 24 hrs Laboratory Tests Test 09/16/16 21:10 09/17/16 06:52 09/17/16 12:17 09/17/16 12:30 Vancomycin Level Trough 46.5 *H White Blood Count 5.7 # Red Blood Count 2.62 L Hemoglobin 7.6 L 9.7 #L Hematocrit 25.4 L 32.0 #L Mean Corpuscular Volume 96.9 Mean Corpuscular Hemoglobin 29.0 Mean Corpuscular Hemoglobin Concent 29.9 L Red Cell Distribution Width 19.8 H Platelet Count 242 Mean Platelet Volume 10.3 Neutrophils % 63.6 Lymphocytes % 14.7 L Monocytes % 7.6 Eosinophils % 12.7 H Basophils % 0.7 Nucleated Red Blood Cells % 0.0 Neutrophils # 3.6 Lymphocytes # 0.8 Monocytes # 0.4 Eosinophils # 0.7 H Basophils # 0.0 Nucleated Red Blood Cells # 0.0 Sodium Level 144 Potassium Level 3.1 L Chloride Level 106 Carbon Dioxide Level 23 Anion Gap 18 H Blood Urea Nitrogen 109 H Creatinine 0.59 Glucose Level 138 Calcium Level 8.4 Phosphorus Level 6.2 H Magnesium Level 2.5 Bedside Glucose 202 Test 09/17/16 13:01 09/17/16 17:30 Bedside Glucose 201 232 H Medications Medications Current Medications Lorazepam (Ativan) 0.5 mg Q6H PRN IV ANXIETY Last administered on 09/15/16t 16: 29; Admin Dose 0.5 MG; Start 09/15/16 at 06:30 Ondansetron HCl (Zofran Inj) 4 mg Q6H PRN IV NAUSEA AND/OR VOMITING; Start 09/15 at 06:30 Acetaminophen (Tylenol Tab) 650 mg Q6H PRN PO PAIN LEVEL 1-3 OR FEVER Last administered on 09/16/16 20:10; Admin Dose 650 MG; Start 09/15/16 at 06:30 Acetaminophen (Tylenol Supp) 650 mg Q6H PRN [place] PAIN LEVEL 1-3 OR FEVER; Start 09/15/16 at 06:30 Morphine Sulfate 2 mg 2 mg Q4H PRN IV PAIN LEVEL 7-10 Last administered on 06:11; Admin Dose 2 MG; Start 09/15/16 at 06:30 Cefepime HCl (Maxipime 1gm/50 ml (Pmx)) 50 ml @ 100 mls/hr Q12 IVPB Last administered on 09/17/16 10:11; Admin Dose 100 MLS/HR; Start 09/15/16 at 11:00 Amiodarone HCl (Cordarone) 200 mg DAILY GTB Last administered on 09/17/16 10:15 ; Admin Dose 200 MG; Start 09/15/16 at 09:00 Bisacodyl (Dulcolax Supp) 10 mg Q24H PRN [place] CONSTIPATION; Start 09/15/16 at 06: 30 Chlorhexidine Gluconate (Peridex) 15 ml BID MM Last administered on 09/17/16 10 :08; Admin Dose 15 ML; Start 09/15/16 at 09:00 Docusate Sodium (Colace) 200 mg QHS PRN PO CONSTIPATION; Start 09/15/16 at 06:30 Lisinopril (Zestril) 2.5 mg BID GTB Last administered on 09/15/16 09:24; Admin Dose 2.5 MG; Start 09/15/16 at 09:00; Status Future Hold Pantoprazole (Protonix Tab) 40 mg DAILY PO Last administered on 09/17/16 10:08 ; Admin Dose 40 MG; Start 09/15/16 at 09:00 Epoetin Kt (Epogen (Non Esrd/Non Oncology)) 3,000 units MoWeFr@17 SC Last administered on 8/2/17at 17:15; Admin Dose 3,000 UNITS; Start 09/16/16 at 17:00 Epoetin Kt 2000 units 2,000 units MoWeFr@17 SC Last administered on 09/16/16 17:14; Admin Dose 2,000 UNITS; Start 09/16/16 at 17:00 Vancomycin HCl/ Sodium Chloride (Vancocin/NS) 250 ml @ 83.333 mls/ hr Q12H IVPB Last administered on 09/16/16 22:00; Admin Dose 83.333 MLS/HR; Start at 10:00; Status Future Hold Diphenhydramine HCl (Benadryl) 25 mg Q6H PRN IV ITCHING Last administered on 10:08; Admin Dose 25 MG; Start 09/15/16 at 21:00 Miscellaneous Information (*Rx Drug Level Order Reminder*) RANDOM VANCOMYCIN LEVEL ... ONCE ONCE XX ; Start 09/18/16 at 05:00; Stop 09/18/16 at 05:01 Tramadol HCl (Ultram) 50 mg Q6H PRN GTB PAIN LEVEL 6-10; Start 09/17/16 at 12:00 Diagnostic Test (Pha) (Accu-Chek) 1 ea 02 XX ; Start 09/18/16 at 02:00 Diagnostic Test (Pha) (Accu-Chek) 1 ea 02 XX ; Start 09/18/16 at 02:00 Miscellaneous Information 1 ea NOTE XX ; Start 09/17/16 at 12:00 Glucose (Glutose) 15 gm Q15M PRN PO DECREASED GLUCOSE; Start 09/17/16 at 12:00 Glucose (Glutose) 22.5 gm Q15M PRN PO DECREASED GLUCOSE; Start 09/17/16 at 12:00 Dextrose (D50w Syringe) 25 ml Q15M PRN IV DECREASED GLUCOSE; Start 09/17/16 at 12:00 Dextrose (D50w Syringe) 50 ml Q15M PRN IV DECREASED GLUCOSE; Start 09/17/16 at 12:00 Glucagon (Glucagen) 1 mg Q15M PRN IM DECREASED GLUCOSE; Start 09/17/16 at 12:00 Glucose (Glutose) 15 gm Q15M PRN BUCCAL DECREASED GLUCOSE; Start 09/17/16 at 12: 00 ERICK GUTHRIE MD Sep 17, 2016 20:43
--- NOTE | 2016-09-17 21:46 | RADRPT ---
Echocardiogram Report Patient Name: VERONIKA MATA Gender: Female Date: 1965 Study Date: 17-Sep-2016 Career Technical Counselor: Kwadwo Resendiz [facility] Location: [id number] Ref. Physician: FROY LEIJA Quality: Technically Difficult Study Procedures: Transthoracic echocardiogram with complete 2D, M-Mode, and doppler examination. Indications: Cardiomyopathy. 2D/M Mode Doppler Measurement Value Normal Ranges Measurement Value Normal Ranges LVIDd 2D 5.0 3.5 - 5.6 cm AV Peak Adama 1.3 m/sec LVIDs 2D 4.7 2.1 - 4.1 cm AV Peak PG 7.1 mmHg LVPWd 2D 1.1 0.6 - 1.1 cm LVOT Peak Adama 1.1 m/sec IVSd 2D 1.1 0.6 - 1.1 cm LVOT Peak PG 5.2 mmHg AoR Diam 2D 2.7 2.0 - 3.7 cm TR Peak Adama 3.7 m/sec EDV 2D 119.4 cm3 TR Peak PG 55.4 mmHg ESV 2D 105.6 cm3 RVSP 63.0 mmHg LA Dimen 2D 4.3 2.3 - 4.0 cm Findings Left Ventricle: Normal left ventricular cavity size. Severe global left ventricular systolic dysfunction. Ejection fraction is visually estimated at 2025 %. Tissue Doppler/Mitral Doppler indices are indeterminate in this study due to the presence of arrhythmia. Right Ventricle: Normal right ventricular size. Normal right ventricular systolic function. Left Atrium: There is mild enlargement of left atrium. Right Atrium: The right atrium is normal in size. Mitral Valve: Mitral valve leaflets appear mildly thickened. Mild mitral annular calcification. Mild mitral valve regurgitation. Aortic Valve: Normal appearance of the aortic valve. No significant aortic stenosis or insufficiency. Tricuspid Valve: Normal appearance of the tricuspid valve. Estimated peak PA systolic pressure 63 mmHg. There is mild to moderate tricuspid regurgitation. Pulmonic Valve: Normal pulmonic valve appearance. There is trace pulmonic regurgitation. Pericardium: Normal pericardium with no significant pericardial effusion. Pleural effusion seen. Aorta: Normal aortic root. IVC: Inferior vena cava without respiratory collapse, however, patient on ventilator. Conclusions 1.The left ventricle is normal in size with severe reduced systolic function. There is global hypokinesis. 2.Estimated left ventricular ejection fraction of 20-25%. 3.Pulmonary hypertension with estimated RVSP of 63 mmHg. Electronically Signed By: Cristian Sewell 17-Sep-2016 21:45:48 -0700 Patient Name: VERONIKA MATA Study Date: 17-Sep-2016 [id number]
[2016-09-17] MEDS ORDERED: INSULIN GLARGINE [LANtus] 3 ML PEN SC SCH (22:30)
[2016-09-18] VITALS (24 sets, daily range): BP systolic 95–111; BP diastolic 50–62; PULSE 55–60; RESP 15–21
[2016-09-18] MEDS: ALBUTEROL 18 GM INHALER INH SCH ×6 (01:02→21:45)
[2016-09-18] MEDS ORDERED: ACCU-CHEK XX SCH ×2 (02:00)
[2016-09-18] MEDS: BUMETANIDE 1 MG TAB GTB SCH ×2 (05:47→17:46)
[2016-09-18] MEDS: INSULIN ASPART [NOVOLOG] 3 ML PEN SC SCH ×6 (05:57→23:21)
[2016-09-18 05:58] LABS: BASOPHILS % 0.5 % (0.0-2.0); EOSINOPHILS # 0.7 10^3/ul (0.0-0.5); EOSINOPHILS % 8.3 % (0.0-7.0); HEMATOCRIT 31.6 % (37.0-47.0); HEMOGLOBIN 9.2 g/dl (12.0-16.0); LYMPHOCYTES # 0.8 10^3/ul (0.8-2.9); LYMPHOCYTES % 9.2 % (15.0-51.0); MEAN CORPUSCULAR HEMOGLOBIN 28.5 pg (29.0-33.0); MEAN CORPUSCULAR HGB CONC 29.1 g/dl (32.0-37.0); MEAN CORPUSCULAR VOLUME 97.8 fl (82.0-101.0); MEAN PLATELET VOLUME 10.5 fl (7.4-10.4); MONOCYTE # 0.5 10^3/ul (0.3-0.9); NEUTROPHIL # 6.5 10^3/ul (1.6-7.5); NEUTROPHILS % 75.5 % (39.0-77.0); PLATELET COUNT 301 10^3/UL (140-415); RED BLOOD COUNT 3.23 10^6/ul (4.20-5.40); RED CELL DISTRIBUTION WIDTH 20.1 % (11.5-14.5); WHITE BLOOD COUNT 8.6 10^3/ul (4.8-10.8)
[2016-09-18 06:30] LABS: CALCIUM 9.1 mg/dl (8.4-10.2); CREATININE 0.6 mg/dl (0.44-1.00)
[2016-09-18] MEDS ORDERED: POTASSIUM CHLORIDE 20 MEQ POWDER FOR ORAL SOLN GTB ONE (09:00)
--- NOTE | 2016-09-18 09:16 | PN ---
DATE: 09/18/2016 SUBJECTIVE DATA: The patient is stable. No events overnight. No fevers, chills, nausea, vomiting. OBJECTIVE DATA: VITAL SIGNS: Blood pressure is 109/58, respirations 18, pulse 61, temperature 98.5. HEENT: Head is normocephalic. NECK: Supple. HEART: Regular rate. LUNGS: Show diminished breath sounds at the base. ABDOMEN: Soft, nontender to palpation. No rebound or guarding. EXTREMITIES: Negative for clubbing, cyanosis. Positive edema. DERMATOLOGIC: Clean. No rashes. MUSCULOSKELETAL: No joint effusion. NEUROLOGIC: No change in exam. MEDICATIONS: Reviewed. LABORATORY AND DIAGNOSTIC DATA: Shows sodium 149, potassium 3.0, chloride 107, BUN 103, creatinine 0.60, glucose 222. White count 10.6, hemoglobin 9.2, hematocrit 31.6, platelet count is 301. ASSESSMENT AND PLAN: 1. Nonoliguric acute kidney injury on top of chronic kidney disease with a baseline creatinine of 0.6 mg/dL. Etiology likely secondary to hemodynamics. Renal function appears to have come back to baseline. Please note, the patient's creatinine is grossly over estimating patient's estimated glomerular filtration rate due to significant muscular atrophy. The patient has underlying azotemia which is multifactorial secondary to chronic kidney disease, hypercatabolic state, high-protein diet. Azotemia is slowly improving after going to a low-protein based diet. At this point, continue to monitor. Continue supportive care. Renally dose medications. Avoid nephrotoxins. 2. Hypokalemia. We will replete with potassium chloride. 3. Hypernatremia. The patient has a free water deficit of 2.5 L. We will increase free water flushes 200 mL q.4 hours. 4. Mineral bone disorder. Continue to monitor calcium and phosphorus levels. 5. Anemia. Monitor H and H levels. 6. Sepsis secondary to healthcare-associated pneumonia. Continue current antibiotic regimen. 7. Ventilatory-dependent respiratory failure. Vent settings have been reviewed. ABGs have been reviewed. Continue to monitor. Follow up with Pulmonary. 8. History of cardiomyopathy. Continue medical management. 9. Status post percutaneous endoscopic gastrostomy. Continue tube feeding. 10. Quadriplegia secondary to muscular dystrophy. 11. Hypertension. Continue current medical management. 12. History of cardiomyopathy. Continue current medical management. Continue low-dose diuretic therapy. Follow up with Cardiology. 13. History of ascites. 14. [id number] congestive heart failure. Continue current treatment plan as stated above. Dictated By: Raymon Giordano DO /[email or web address] /Document#: [id number]
[2016-09-18] MEDS: AMIODARONE 200 MG TAB GTB SCH (09:17)
[2016-09-18] MEDS: CHLORHEXIDINE GLUCONATE 15 ML UD CUP MM SCH ×2 (09:17→20:58)
[2016-09-18] MEDS: PANTOPRAZOLE (EC) 40 MG TAB PO SCH (09:17)
[2016-09-18] MEDS: CEFEPIME 1GM/50 ML (PMX) 50 ML IVPB SCH (09:18)
[2016-09-18] MEDS ORDERED: ACETAMINOPHEN 325 MG TAB GTB PRN (11:30)
[2016-09-18] MEDS ORDERED: MIDODRINE 5 MG TAB GTB PRN (11:30)
[2016-09-18] MEDS ORDERED: ALBUTEROL 0.083% (NEB) 2.5 MG/3 ML AMP NEB PRN (11:30)
[2016-09-18] MEDS ORDERED: NA PHOSPHATE/BIPHOS 66.6 ML ENEMA PR PRN (11:30)
[2016-09-18] MEDS ORDERED: LORAZEPAM 1 MG TAB GTB PRN (11:30)
[2016-09-18] MEDS ORDERED: MAGNESIUM HYDROXIDE 30ML CUP GTB PRN (11:30)
--- NOTE | 2016-09-18 11:43 | PN ---
Date/Time of Note Date/Time of Note DATE: 09/18/16 TIME: 11:40 Assessment/Plan VTE Prophylaxis VTE Prophylaxis Intervention: SCD's Lines/Catheters IV [facility] Saline Lock Urinary Cath still in place: Yes Reason Cath still needed: urinary retention Assessment/Plan Chief Complaint/Hosp Course Assessment and plan: 50-year-old female with past medical history of quadriplegia, muscular dystrophy, trach/vent dependent respiratory failure, anemia, ascites, dysphagia status post PEG tube feeding, hypertension, anxiety, diabetes mellitus, GERD, cardiomyopathy with EF of 30% to 35%, AICD [facility] and AMS, likely secondary to pneumonia. 1. Healthcare associated pneumonia:- Patient for hypoxemia most likely secondary to a pneumonia, which also appears to be multifocal pneumonia. Slowly improving. -Continue antibiotics. -Follow-up culture. Consider ID consult if does not improve 2. Chronic Trach/vent dependent respiratory failure - Continue trach support. Follow-up pulmonary recommendation 3. Cardiomyopathy with EF of 30% to 35%, AICD -continue current cardiac medications 4. Hyperkalemia-resolved, follow-up renal REC'S. 5. Altered mentation-slightly improved, monitor for now. 6. Dysphagia s/p PEG tube-continue tube feeds as tolerated. We will also get GI consult given possibility of malfunctioning G-tube. 7. Diabetes - A1c = 5.2. now with some lelevated sugars. - continue sliding scale insulin, will also add back home Levemir, add aspart TID 8. History of ascites, requiring paracentesis-monitor abdomen. 9. Azotemia-slightly improved, but still very elevated BUN. Follow-up renal recommendations. On Bumex p.o. twice daily 10. History of hypertension-continue current meds 11. History of quadriplegia secondary to muscular dystrophy -monitor 12. Anemia: Hemoglobin presently stable -Monitor for now Problems: Subjective 24 Hr Interval Summary Free Text/Dictation Patient seen by renal team this morning. Per nursing staff, having some issues with suctioning of the G-tube. Exam/Review of Systems Vital Signs Vitals Vital Signs Date Time Temp Pulse Resp B/P Pulse Ox O2 Delivery O2 Flow Rate FiO2 09/18/16 11:10 60 18 97 35 09/18/16 07:39 98.5 109/58 09/15/16 04:30 Mechanical Ventilator Intake and Output 09/17/16 09/17/16 09/18/16 15:00 23:00 07:00 Intake Total 635 ml 620 ml Output Total 650 ml 850 ml Balance -15 ml -230 ml Exam Constitutional: Sleeping, no acute distress Head: atraumatic, normocephalic Neck: other (Trach tube in place) Respiratory: diminished breath sounds Cardiovascular: nl pulses, regular rate and rhythm Gastrointestinal: other (PEG tube in place), soft Extremities: edema Results Result Diagram: 09/18/1625 09/18/1625 Results 24 hrs Laboratory Tests Test 09/17/16 12:17 09/17/16 12:30 09/17/16 13:01 09/17/16 17:30 Bedside Glucose 202 201 232 H Hemoglobin 9.7 #L Hematocrit 32.0 #L Test 09/17/16 21:55 09/17/16 23:11 09/18/16 05:24 09/18/16 05:25 Bedside Glucose 242 H 227 H Random Vancomycin Level 33.9 White Blood Count 8.6 # Red Blood Count 3.23 #L Hemoglobin 9.2 L Hematocrit 31.6 L Mean Corpuscular Volume 97.8 Mean Corpuscular Hemoglobin 28.5 L Mean Corpuscular Hemoglobin Concent 29.1 L Red Cell Distribution Width 20.1 H Platelet Count 301 # Mean Platelet Volume 10.5 H Neutrophils % 75.5 Lymphocytes % 9.2 L Monocytes % 6.0 Eosinophils % 8.3 H Basophils % 0.5 Nucleated Red Blood Cells % 0.0 Neutrophils # 6.5 Lymphocytes # 0.8 Monocytes # 0.5 Eosinophils # 0.7 H Basophils # 0.0 Nucleated Red Blood Cells # 0.0 Sodium Level 149 H Potassium Level 3.0 L Chloride Level 107 Carbon Dioxide Level 25 Anion Gap 20 H Blood Urea Nitrogen 103 H Creatinine 0.60 Glucose Level 222 H Calcium Level 9.1 Test 09/18/16 05:52 Bedside Glucose 261 H Medications Medications Current Medications Lorazepam (Ativan) 0.5 mg Q6H PRN IV ANXIETY Last administered on 09/15/16t 16: 29; Admin Dose 0.5 MG; Start 09/15/16 at 06:30 Ondansetron HCl (Zofran Inj) 4 mg Q6H PRN IV NAUSEA AND/OR VOMITING; Start 09/15 at 06:30 Acetaminophen (Tylenol Tab) 650 mg Q6H PRN PO PAIN LEVEL 1-3 OR FEVER Last administered on 09/16/16 20:10; Admin Dose 650 MG; Start 09/15/16 at 06:30 Acetaminophen (Tylenol Supp) 650 mg Q6H PRN [place] PAIN LEVEL 1-3 OR FEVER; Start 09/15/16 at 06:30 Morphine Sulfate 2 mg 2 mg Q4H PRN IV PAIN LEVEL 7-10 Last administered on 06:11; Admin Dose 2 MG; Start 09/15/16 at 06:30 Cefepime HCl (Maxipime 1gm/50 ml (Pmx)) 50 ml @ 100 mls/hr Q12 IVPB Last administered on 09/18/16 09:18; Admin Dose 100 MLS/HR; Start 09/15/16 at 11:00 Amiodarone HCl (Cordarone) 200 mg DAILY GTB Last administered on 09/18/16 09:17 ; Admin Dose 200 MG; Start 09/15/16 at 09:00 Bisacodyl (Dulcolax Supp) 10 mg Q24H PRN [place] CONSTIPATION; Start 09/15/16 at 06: 30 Chlorhexidine Gluconate (Peridex) 15 ml BID MM Last administered on 09/18/16 09 :17; Admin Dose 15 ML; Start 09/15/16 at 09:00 Docusate Sodium (Colace) 200 mg QHS PRN PO CONSTIPATION; Start 09/15/16 at 06:30 Lisinopril (Zestril) 2.5 mg BID GTB Last administered on 09/15/16 09:24; Admin Dose 2.5 MG; Start 09/15/16 at 09:00; Status Future Hold Pantoprazole (Protonix Tab) 40 mg DAILY PO Last administered on 09/18/16 09:17 ; Admin Dose 40 MG; Start 09/15/16 at 09:00 Epoetin Kt (Epogen (Non Esrd/Non Oncology)) 3,000 units MoWeFr@17 SC Last administered on 09/16/16 17:15; Admin Dose 3,000 UNITS; Start 09/16/16 at 17:00 Epoetin Kt 2000 units 2,000 units MoWeFr@17 SC Last administered on 09/16/16 17:14; Admin Dose 2,000 UNITS; Start 09/16/16 at 17:00 Vancomycin HCl/ Sodium Chloride (Vancocin/NS) 250 ml @ 83.333 mls/ hr Q12H IVPB Last administered on 09/16/16 22:00; Admin Dose 83.333 MLS/HR; Start at 10:00; Status Future Hold Diphenhydramine HCl (Benadryl) 25 mg Q6H PRN IV ITCHING Last administered on 10:08; Admin Dose 25 MG; Start 09/15/16 at 21:00 Tramadol HCl (Ultram) 50 mg Q6H PRN GTB PAIN LEVEL 6-10; Start 09/17/16 at 12:00 Miscellaneous Information 1 ea NOTE XX ; Start 09/17/16 at 12:00 Insulin Aspart (Novolog Insulin Pen) NOVOLOG *MILD* ALGORI... Q6 SC Last administered on 09/18/16 05:57; Admin Dose 4 UNIT; Start 09/18/16 at 06:00 Miscellaneous Information 1 ea NOTE XX ; Start 09/17/16 at 22:45 Glucose (Glutose) 15 gm Q15M PRN PO DECREASED GLUCOSE; Start 09/17/16 at 22:45 Glucose (Glutose) 22.5 gm Q15M PRN PO DECREASED GLUCOSE; Start 09/17/16 at 22:45 Dextrose (D50w Syringe) 25 ml Q15M PRN IV DECREASED GLUCOSE; Start 09/17/16 at 22:45 Dextrose (D50w Syringe) 50 ml Q15M PRN IV DECREASED GLUCOSE; Start 09/17/16 at 22:45 Glucagon (Glucagen) 1 mg Q15M PRN IM DECREASED GLUCOSE; Start 09/17/16 at 22:45 Glucose (Glutose) 15 gm Q15M PRN BUCCAL DECREASED GLUCOSE; Start 09/17/16 at 22: 45 Acetaminophen (Tylenol Tab) 650 mg Q4 PRN GTB PAIN AND OR ELEVATED TEMP; Start 09/18/16 at 11:30; Status UNV Albuterol (Proventil 0.083% (Neb)) 2.5 mg Q3H PRN NEB WHEEZING AND SOB; Start 09/18/16 at 11:30; Status UNV Ascorbic Acid (Vitamin C) 500 mg BID PO ; Start 09/18/16 at 21:00; Status UNV Ascorbic Acid (Vitamin C) 500 mg DAILY GTB ; Start 09/19/16 at 09:00; Status UNV Folic Acid (Folic Acid) 1 mg DAILY GTB ; Start 09/19/16 at 09:00; Status UNV Hydroxyzine HCl (Atarax) 25 mg Q8H PRN PO ITCHING; Start 09/18/16 at 11:30; Status UNV Lorazepam (Ativan) 1 mg Q8 PRN GTB ANXIETY; Start 09/18/16 at 11:30; Status UNV Magnesium Hydroxide (Milk Of Mag) 30 ml DAILY PRN GTB CONSTIPATION; Start at 11:30; Status UNV Midodrine (Proamatine) 5 mg Q6 PRN GTB HYPOTENSION; Start 09/18/16 at 11:30; Status UNV Multivitamins Therapeutic (Theragran) 1 tab DAILY GTB ; Start 09/19/16 at 09:00; Status UNV Sodium Biphosphate/ Sodium Phosphate (Fleet Enema Pediatric) 66.6 ml DAILY PRN [place] CONSTIPATION; Start 09/18/16 at 11:30; Status UNV Miscellaneous Information 30 mg BID GTB ; Start 09/18/16 at 21:00; Status UNV Miscellaneous Information 425 mg DAILY GTB ; Start 09/19/16 at 09:00; Status UNV Miscellaneous Information 325 mg TID GTB ; Start 09/18/16 at 13:00; Status UNV Miscellaneous Information 1 each BID GTB ; Start 09/18/16 at 21:00; Status UNV Miscellaneous Information 26 unit QHS SC ; Start 09/18/16 at 21:00; Status UNV FROY LEIJA Sep 18, 2016 11:43
--- NOTE | 2016-09-18 11:52 | CONS ---
Date/Time of Note Date/Time of Note DATE: 09/18/16 TIME: 11:41 Assessment/Plan Assessment/Plan Additional Assessment/Plan Assessment Malfunctioning gastrostomy tube resolved Sepsis Chronic respiratory failure Quadriplegia H/O cardiomyopathy Plan continue present medications increase water flush to 100 cc q6 further orders will depend on clinical course Consultation Date/Type/Reason Admit Date/Time Sep 15, 2016 at 01:59 Date of Consultation: Sep 18, 2016 Type of Consultation: Gastroenterology Reason for Consultation malfunction G tube Referring Provider: FROY LEIJA Hx of Present Illness 50 year old female with history of cardiomyopathy ,pneumonia,diabetes mellitus, history of quadriplegia,S/P PEG February 2016,S/P tracheostomy admitted because of sepsis.Shee was referred for malfunctioning G tube .Caregiver claims frequent clogging of G tube hence referred for evaluation. Subsequent examination that PEG was functioning very well after adequate flushing with saline and encountering no resistance.Tube feeding was readapted and observed , no clog noted Psychological: No nl mood/affect, No no complaints Past Medical History Medical History: congestive heart failure, diabetes, hypertension, urinary tract infection Past Surgical History Past Surgical Hx: endoscopy, other (tracheostomy) Family History Significant Family History: no pertinent family hx Social History Alcohol Use: none Smoking Status: Never smoker Drug Use: none Exam/Review of Systems Vital Signs Vitals Vital Signs Date Time Temp Pulse Resp B/P Pulse Ox O2 Delivery O2 Flow Rate FiO2 09/18/16 11:10 60 18 97 35 09/18/16 07:39 98.5 109/58 09/15/16 04:30 Mechanical Ventilator Intake and Output 09/17/16 09/17/16 09/18/16 15:00 23:00 07:00 Intake Total 635 ml 620 ml Output Total 650 ml 850 ml Balance -15 ml -230 ml Exam Constitutional: frail Head: normocephalic Eyes: nl conjunctiva ENMT: other (trach to ventilator) Neck: non-tender, supple Respiratory: crackles/rales, diminished breath sounds Cardiovascular: nl pulses, regular rate and rhythm Gastrointestinal: bowel sounds, distended, other (g tune ), soft, No rebound or guarding Musculoskeletal: muscle weakness Extremities: edema, normal pulses Neurological: other (non verbal) Lymph: nl lymph nodes Results Result Diagram: 09/18/16 0525 09/18/16 0525 Results 24 hrs Laboratory Tests Test 09/17/16 12:17 09/17/16 12:30 09/17/16 13:01 09/17/16 17:30 Bedside Glucose 202 201 232 H Hemoglobin 9.7 #L Hematocrit 32.0 #L Test 09/17/16 21:55 09/17/16 23:11 09/18/16 05:24 09/18/16 05:25 Bedside Glucose 242 H 227 H Random Vancomycin Level 33.9 White Blood Count 8.6 # Red Blood Count 3.23 #L Hemoglobin 9.2 L Hematocrit 31.6 L Mean Corpuscular Volume 97.8 Mean Corpuscular Hemoglobin 28.5 L Mean Corpuscular Hemoglobin Concent 29.1 L Red Cell Distribution Width 20.1 H Platelet Count 301 # Mean Platelet Volume 10.5 H Neutrophils % 75.5 Lymphocytes % 9.2 L Monocytes % 6.0 Eosinophils % 8.3 H Basophils % 0.5 Nucleated Red Blood Cells % 0.0 Neutrophils # 6.5 Lymphocytes # 0.8 Monocytes # 0.5 Eosinophils # 0.7 H Basophils # 0.0 Nucleated Red Blood Cells # 0.0 Sodium Level 149 H Potassium Level 3.0 L Chloride Level 107 Carbon Dioxide Level 25 Anion Gap 20 H Blood Urea Nitrogen 103 H Creatinine 0.60 Glucose Level 222 H Calcium Level 9.1 Test 09/18/16 05:52 Bedside Glucose 261 H Medications Medications Current Medications Lorazepam (Ativan) 0.5 mg Q6H PRN IV ANXIETY Last administered on 09/15/16 16: 29; Admin Dose 0.5 MG; Start 09/15/16 at 06:30 Ondansetron HCl (Zofran Inj) 4 mg Q6H PRN IV NAUSEA AND/OR VOMITING; Start 09/15 at 06:30 Acetaminophen (Tylenol Tab) 650 mg Q6H PRN PO PAIN LEVEL 1-3 OR FEVER Last administered on 09/16/16 20:10; Admin Dose 650 MG; Start 09/15/16 at 06:30 Acetaminophen (Tylenol Supp) 650 mg Q6H PRN [place] PAIN LEVEL 1-3 OR FEVER; Start 09/15/16 at 06:30 Morphine Sulfate 2 mg 2 mg Q4H PRN IV PAIN LEVEL 7-10 Last administered on 06:11; Admin Dose 2 MG; Start 09/15/16 at 06:30 Cefepime HCl (Maxipime 1gm/50 ml (Pmx)) 50 ml @ 100 mls/hr Q12 IVPB Last administered on 09/18/16 09:18; Admin Dose 100 MLS/HR; Start 09/15/16 at 11:00 Amiodarone HCl (Cordarone) 200 mg DAILY GTB Last administered on 09/18/16 09:17 ; Admin Dose 200 MG; Start 09/15/16 at 09:00 Bisacodyl (Dulcolax Supp) 10 mg Q24H PRN [place] CONSTIPATION; Start 09/15/16 at 06: 30 Chlorhexidine Gluconate (Peridex) 15 ml BID MM Last administered on 09/18/16 09 :17; Admin Dose 15 ML; Start 09/15/16 at 09:00 Docusate Sodium (Colace) 200 mg QHS PRN PO CONSTIPATION; Start 09/15/16 at 06:30 Lisinopril (Zestril) 2.5 mg BID GTB Last administered on 09/15/16 09:24; Admin Dose 2.5 MG; Start 09/15/16 at 09:00; Status Future Hold Pantoprazole (Protonix Tab) 40 mg DAILY PO Last administered on 09/18/16 09:17 ; Admin Dose 40 MG; Start 09/15/16 at 09:00 Epoetin Kt (Epogen (Non Esrd/Non Oncology)) 3,000 units MoWeFr@17 SC Last administered on 09/16/16 17:15; Admin Dose 3,000 UNITS; Start 09/16/16 at 17:00 Epoetin Kt 2000 units 2,000 units MoWeFr@17 SC Last administered on 09/16/16 17:14; Admin Dose 2,000 UNITS; Start 09/16/16 at 17:00 Vancomycin HCl/ Sodium Chloride (Vancocin/NS) 250 ml @ 83.333 mls/ hr Q12H IVPB Last administered on 09/16/16 22:00; Admin Dose 83.333 MLS/HR; Start at 10:00; Status Future Hold Diphenhydramine HCl (Benadryl) 25 mg Q6H PRN IV ITCHING Last administered on 10:08; Admin Dose 25 MG; Start 09/15/16 at 21:00 Tramadol HCl (Ultram) 50 mg Q6H PRN GTB PAIN LEVEL 6-10; Start 09/17/16 at 12:00 Miscellaneous Information 1 ea NOTE XX ; Start 09/17/16 at 12:00 Insulin Aspart (Novolog Insulin Pen) NOVOLOG *MILD* ALGORI... Q6 SC Last administered on 09/18/16 05:57; Admin Dose 4 UNIT; Start 09/18/16 at 06:00 Miscellaneous Information 1 ea NOTE XX ; Start 09/17/16 at 22:45 Glucose (Glutose) 15 gm Q15M PRN PO DECREASED GLUCOSE; Start 09/17/16 at 22:45 Glucose (Glutose) 22.5 gm Q15M PRN PO DECREASED GLUCOSE; Start 09/17/16 at 22:45 Dextrose (D50w Syringe) 25 ml Q15M PRN IV DECREASED GLUCOSE; Start 09/17/16 at 22:45 Dextrose (D50w Syringe) 50 ml Q15M PRN IV DECREASED GLUCOSE; Start 09/17/16 at 22:45 Glucagon (Glucagen) 1 mg Q15M PRN IM DECREASED GLUCOSE; Start 09/17/16 at 22:45 Glucose (Glutose) 15 gm Q15M PRN BUCCAL DECREASED GLUCOSE; Start 09/17/16 at 22: 45 Acetaminophen (Tylenol Tab) 650 mg Q4 PRN GTB PAIN AND OR ELEVATED TEMP; Start 09/18/16 at 11:30; Status UNV Albuterol (Proventil 0.083% (Neb)) 2.5 mg Q3H PRN NEB WHEEZING AND SOB; Start 09/18/16 at 11:30; Status UNV Ascorbic Acid (Vitamin C) 500 mg BID PO ; Start 09/18/16 at 21:00; Status UNV Ascorbic Acid (Vitamin C) 500 mg DAILY GTB ; Start 09/19/16 at 09:00; Status UNV Folic Acid (Folic Acid) 1 mg DAILY GTB ; Start 09/19/16 at 09:00; Status UNV Hydroxyzine HCl (Atarax) 25 mg Q8H PRN PO ITCHING; Start 09/18/16 at 11:30; Status UNV Lorazepam (Ativan) 1 mg Q8 PRN GTB ANXIETY; Start 09/18/16 at 11:30; Status UNV Magnesium Hydroxide (Milk Of Mag) 30 ml DAILY PRN GTB CONSTIPATION; Start at 11:30; Status UNV Midodrine (Proamatine) 5 mg Q6 PRN GTB HYPOTENSION; Start 09/18/16 at 11:30; Status UNV Multivitamins Therapeutic (Theragran) 1 tab DAILY GTB ; Start 09/19/16 at 09:00; Status UNV Sodium Biphosphate/ Sodium Phosphate (Fleet Enema Pediatric) 66.6 ml DAILY PRN [place] CONSTIPATION; Start 09/18/16 at 11:30; Status UNV Miscellaneous Information 30 mg BID GTB ; Start 09/18/16 at 21:00; Status UNV Miscellaneous Information 425 mg DAILY GTB ; Start 09/19/16 at 09:00; Status UNV Miscellaneous Information 325 mg TID GTB ; Start 09/18/16 at 13:00; Status UNV Miscellaneous Information 1 each BID GTB ; Start 09/18/16 at 21:00; Status UNV Miscellaneous Information 18 unit QHS SC ; Start 09/18/16 at 21:00; Status UNV Insulin Aspart (Novolog Insulin Pen) 5 unit TID SC ; Start 09/18/16 at 13:00; Status UNV UMM MARQUEZ MD Sep 18, 2016 11:52
--- NOTE | 2016-09-18 12:16 | CONS ---
Date/Time of Note Date/Time of Note DATE: 09/18/16 TIME: 12:13 Assessment/Plan Assessment/Plan Chief Complaint/Hosp Course 50-year-old female resident of a subacute facility was PEG trach admitted with healthcare acquired pneumonia. We have an incomplete database except the patient has multiple comorbid major medical problems including muscular dystrophy morbid obesity type 2 diabetes cardiomyopathy with an EF of 30-35 per. When brought to the emergency room 100% FiO2 for sats were 100 she was diagnosed with bilateral infiltrate and admitted. Patient is a non-historian, reason to be ascertained from patient's old medical records or family members. It is noted in patient's medical records that she has altered mental status etiology unknown. Problems: Additional Assessment/Plan Patient's is in the room I have had a short discussion with him concerning our conversation yesterday with changing patient's CODE STATUS. He indicated to me that he is still thinking about it but leaning in that direction. I have addressed palliative care issues my last dictation September 17 I will continue support patient and family members. Patient's sister was in favor of changing CODE STATUS at least to DO NOT RESUSCITATE but continue with all other care has been did not yesterday. Consultation Date/Type/Reason Admit Date/Time Sep 15, 2016 at 01:59 Initial Consult Date 09/16/16 Type of Consultation: Palliative care Referring Provider: FROY LEIJA Exam/Review of Systems Vital Signs Vitals Vital Signs Date Time Temp Pulse Resp B/P Pulse Ox O2 Delivery O2 Flow Rate FiO2 09/18/16 11:59 45 09/18/16 11:42 98.4 60 17 95/50 100 09/15/16 04:30 Mechanical Ventilator Intake and Output 09/17/16 09/17/16 09/18/16 15:00 23:00 07:00 Intake Total 635 ml 620 ml Output Total 650 ml 850 ml Balance -15 ml -230 ml Results Result Diagram: 09/18/16 0525 09/18/16 0525 Results 24 hrs Laboratory Tests Test 09/17/16 12:17 09/17/16 12:30 09/17/16 13:01 09/17/16 17:30 Bedside Glucose 202 201 232 H Hemoglobin 9.7 #L Hematocrit 32.0 #L Test 09/17/16 21:55 09/17/16 23:11 09/18/16 05:24 09/18/16 05:25 Bedside Glucose 242 H 227 H Random Vancomycin Level 33.9 White Blood Count 8.6 # Red Blood Count 3.23 #L Hemoglobin 9.2 L Hematocrit 31.6 L Mean Corpuscular Volume 97.8 Mean Corpuscular Hemoglobin 28.5 L Mean Corpuscular Hemoglobin Concent 29.1 L Red Cell Distribution Width 20.1 H Platelet Count 301 # Mean Platelet Volume 10.5 H Neutrophils % 75.5 Lymphocytes % 9.2 L Monocytes % 6.0 Eosinophils % 8.3 H Basophils % 0.5 Nucleated Red Blood Cells % 0.0 Neutrophils # 6.5 Lymphocytes # 0.8 Monocytes # 0.5 Eosinophils # 0.7 H Basophils # 0.0 Nucleated Red Blood Cells # 0.0 Sodium Level 149 H Potassium Level 3.0 L Chloride Level 107 Carbon Dioxide Level 25 Anion Gap 20 H Blood Urea Nitrogen 103 H Creatinine 0.60 Glucose Level 222 H Calcium Level 9.1 Test 09/18/16 05:52 Bedside Glucose 261 H Medications Medications Current Medications Lorazepam (Ativan) 0.5 mg Q6H PRN IV ANXIETY Last administered on 09/15/16 16: 29; Admin Dose 0.5 MG; Start 09/15/16 at 06:30 Ondansetron HCl (Zofran Inj) 4 mg Q6H PRN IV NAUSEA AND/OR VOMITING; Start 09/15 at 06:30 Acetaminophen (Tylenol Tab) 650 mg Q6H PRN PO PAIN LEVEL 1-3 OR FEVER Last administered on 09/16/16 20:10; Admin Dose 650 MG; Start 09/15/16 at 06:30 Acetaminophen (Tylenol Supp) 650 mg Q6H PRN [place] PAIN LEVEL 1-3 OR FEVER; Start 09/15/16 at 06:30 Morphine Sulfate 2 mg 2 mg Q4H PRN IV PAIN LEVEL 7-10 Last administered on 06:11; Admin Dose 2 MG; Start 09/15/16 at 06:30 Cefepime HCl (Maxipime 1gm/50 ml (Pmx)) 50 ml @ 100 mls/hr Q12 IVPB Last administered on 09/18/16 09:18; Admin Dose 100 MLS/HR; Start 09/15/16 at 11:00 Amiodarone HCl (Cordarone) 200 mg DAILY GTB Last administered on 09/18/16 09:17 ; Admin Dose 200 MG; Start 09/15/16 at 09:00 Bisacodyl (Dulcolax Supp) 10 mg Q24H PRN [place] CONSTIPATION; Start 09/15/16 at 06: 30 Chlorhexidine Gluconate (Peridex) 15 ml BID MM Last administered on 09/18/16 09 :17; Admin Dose 15 ML; Start 09/15/16 at 09:00 Docusate Sodium (Colace) 200 mg QHS PRN PO CONSTIPATION; Start 09/15/16 at 06:30 Lisinopril (Zestril) 2.5 mg BID GTB Last administered on 09/15/16 09:24; Admin Dose 2.5 MG; Start 09/15/16 at 09:00; Status Future Hold Pantoprazole (Protonix Tab) 40 mg DAILY PO Last administered on 09/18/16 09:17 ; Admin Dose 40 MG; Start 09/15/16 at 09:00 Epoetin Kt (Epogen (Non Esrd/Non Oncology)) 3,000 units MoWeFr@17 SC Last administered on 09/16/16 17:15; Admin Dose 3,000 UNITS; Start 09/16/16 at 17:00 Epoetin Kt 2000 units 2,000 units MoWeFr@17 SC Last administered on 09/16/16 17:14; Admin Dose 2,000 UNITS; Start 09/16/16 at 17:00 Vancomycin HCl/ Sodium Chloride (Vancocin/NS) 250 ml @ 83.333 mls/ hr Q12H IVPB Last administered on 09/16/16 22:00; Admin Dose 83.333 MLS/HR; Start at 10:00; Status Future Hold Diphenhydramine HCl (Benadryl) 25 mg Q6H PRN IV ITCHING Last administered on 10:08; Admin Dose 25 MG; Start 09/15/16 at 21:00 Tramadol HCl (Ultram) 50 mg Q6H PRN GTB PAIN LEVEL 6-10; Start 09/17/16 at 12:00 Miscellaneous Information 1 ea NOTE XX ; Start 09/17/16 at 12:00 Insulin Aspart (Novolog Insulin Pen) NOVOLOG *MILD* ALGORI... Q6 SC Last administered on 09/18/16t 05:57; Admin Dose 4 UNIT; Start 09/18/16 at 06:00 Miscellaneous Information 1 ea NOTE XX ; Start 09/17/16 at 22:45 Glucose (Glutose) 15 gm Q15M PRN PO DECREASED GLUCOSE; Start 09/17/16 at 22:45 Glucose (Glutose) 22.5 gm Q15M PRN PO DECREASED GLUCOSE; Start 09/17/16 at 22:45 Dextrose (D50w Syringe) 25 ml Q15M PRN IV DECREASED GLUCOSE; Start 09/17/16 at 22:45 Dextrose (D50w Syringe) 50 ml Q15M PRN IV DECREASED GLUCOSE; Start 09/17/16 at 22:45 Glucagon (Glucagen) 1 mg Q15M PRN IM DECREASED GLUCOSE; Start 09/17/16 at 22:45 Glucose (Glutose) 15 gm Q15M PRN BUCCAL DECREASED GLUCOSE; Start 09/17/16 at 22: 45 Acetaminophen (Tylenol Tab) 650 mg Q4 PRN GTB PAIN AND OR ELEVATED TEMP; Start 09/18/16 at 11:30; Status UNV Albuterol (Proventil 0.083% (Neb)) 2.5 mg Q3H PRN NEB WHEEZING AND SOB; Start 09/18/16 at 11:30; Status UNV Ascorbic Acid (Vitamin C) 500 mg BID PO ; Start 09/18/16 at 21:00; Status UNV Ascorbic Acid (Vitamin C) 500 mg DAILY GTB ; Start 09/19/16 at 09:00; Status UNV Folic Acid (Folic Acid) 1 mg DAILY GTB ; Start 09/19/16 at 09:00; Status UNV Hydroxyzine HCl (Atarax) 25 mg Q8H PRN PO ITCHING; Start 09/18/16 at 11:30; Status UNV Lorazepam (Ativan) 1 mg Q8 PRN GTB ANXIETY; Start 09/18/16 at 11:30; Status UNV Magnesium Hydroxide (Milk Of Mag) 30 ml DAILY PRN GTB CONSTIPATION; Start at 11:30; Status UNV Midodrine (Proamatine) 5 mg Q6 PRN GTB HYPOTENSION; Start 09/18/16 at 11:30; Status UNV Multivitamins Therapeutic (Theragran) 1 tab DAILY GTB ; Start 09/19/16 at 09:00; Status UNV Sodium Biphosphate/ Sodium Phosphate (Fleet Enema Pediatric) 66.6 ml DAILY PRN [place] CONSTIPATION; Start 09/18/16 at 11:30; Status UNV Miscellaneous Information 30 mg BID GTB ; Start 09/18/16 at 21:00; Status UNV Miscellaneous Information 425 mg DAILY GTB ; Start 09/19/16 at 09:00; Status UNV Miscellaneous Information 325 mg TID GTB ; Start 09/18/16 at 13:00; Status UNV Miscellaneous Information 1 each BID GTB ; Start 09/18/16 at 21:00; Status UNV Miscellaneous Information 18 unit QHS SC ; Start 09/18/16 at 21:00; Status UNV Insulin Aspart (Novolog Insulin Pen) 5 unit TID SC ; Start 09/18/16 at 13:00; Status UNV GOVIND PAGE Sep 18, 2016 12:16
[2016-09-18] MEDS: DIPHENHYDRAMINE 50 MG INJ IV PRN (12:20)
--- NOTE | 2016-09-18 14:06 | CONS ---
Date/Time of Note Date/Time of Note DATE: 09/18/16 TIME: 14:04 Assessment/Plan Assessment/Plan Additional Assessment/Plan Chest x-ray was reviewed from yesterday which is again showing pulmonary edema and cardiomegaly. Ventilator setting; AC of 18, tidal volume 550, PEEP of 5, 45% FiO2. Assessment and recommendations; 1. Patient with a history of muscular dystrophy with chronic respiratory failure admitted for CHF exacerbation with possibly superimposed bilateral pneumonia. 2. Intravascular volume depletion. 3. Underlying cardiomyopathy. Continue current treatment. Consultation Date/Type/Reason Admit Date/Time Sep 15, 2016 at 01:59 Initial Consult Date 09/16/16 Type of Consultation: Pulmonary Referring Provider: FROY LEIJA 24 HR Interval Summary Free Text/Dictation Patient condition stable. Remains completely awake and alert. Able to use both upper extremities. Denies any shortness of breath, chest pain, abdominal pain, nausea or vomiting. General exam; middle-aged woman, on ventilator via tracheostomy, currently in no distress. Awake and alert. Exam/Review of Systems Vital Signs Vitals Vital Signs Date Time Temp Pulse Resp B/P Pulse Ox O2 Delivery O2 Flow Rate FiO2 09/18/16 13:00 60 18 97 35 09/18/16 11:42 98.4 95/50 09/15/16 04:30 Mechanical Ventilator Intake and Output 09/17/16 09/17/16 09/18/16 15:00 23:00 07:00 Intake Total 635 ml 620 ml Output Total 650 ml 850 ml Balance -15 ml -230 ml Exam HEENT exam; supple neck, positive JVD. No lymphadenopathy. Midline trachea. No thyromegaly. Patient has fair dentition. Tracheostomy in place with clean insertion site. Pupils are midsize and reactive to light bilaterally. Chest exam; diminished breath on lung bases bilaterally. S1-S2 audible, no murmurs. Regular rhythm. Abdomen exam; soft, no organomegaly. G-tube in place. Bowel sounds audible. Extremity exam; no peripheral edema. 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 Results Result Diagram: 09/18/16 0525 09/18/16 0525 Results 24 hrs Laboratory Tests Test 09/17/16 17:30 09/17/16 21:55 09/17/16 23:11 09/18/16 05:24 Bedside Glucose 232 H 242 H 227 H Random Vancomycin Level 33.9 Test 09/18/16 05:25 09/18/16 05:52 09/18/16 12:16 White Blood Count 8.6 # Red Blood Count 3.23 #L Hemoglobin 9.2 L Hematocrit 31.6 L Mean Corpuscular Volume 97.8 Mean Corpuscular Hemoglobin 28.5 L Mean Corpuscular Hemoglobin Concent 29.1 L Red Cell Distribution Width 20.1 H Platelet Count 301 # Mean Platelet Volume 10.5 H Neutrophils % 75.5 Lymphocytes % 9.2 L Monocytes % 6.0 Eosinophils % 8.3 H Basophils % 0.5 Nucleated Red Blood Cells % 0.0 Neutrophils # 6.5 Lymphocytes # 0.8 Monocytes # 0.5 Eosinophils # 0.7 H Basophils # 0.0 Nucleated Red Blood Cells # 0.0 Sodium Level 149 H Potassium Level 3.0 L Chloride Level 107 Carbon Dioxide Level 25 Anion Gap 20 H Blood Urea Nitrogen 103 H Creatinine 0.60 Glucose Level 222 H Calcium Level 9.1 Bedside Glucose 261 H 234 H Medications Medications Current Medications Lorazepam (Ativan) 0.5 mg Q6H PRN IV ANXIETY Last administered on 09/15/16 16: 29; Admin Dose 0.5 MG; Start 09/15/16 at 06:30 Ondansetron HCl (Zofran Inj) 4 mg Q6H PRN IV NAUSEA AND/OR VOMITING; Start 09/15 at 06:30 Acetaminophen (Tylenol Tab) 650 mg Q6H PRN PO PAIN LEVEL 1-3 OR FEVER Last administered on 09/16/16 20:10; Admin Dose 650 MG; Start 09/15/16 at 06:30 Acetaminophen (Tylenol Supp) 650 mg Q6H PRN [place] PAIN LEVEL 1-3 OR FEVER; Start 09/15/16 at 06:30 Morphine Sulfate 2 mg 2 mg Q4H PRN IV PAIN LEVEL 7-10 Last administered on 06:11; Admin Dose 2 MG; Start 09/15/16 at 06:30 Cefepime HCl (Maxipime 1gm/50 ml (Pmx)) 50 ml @ 100 mls/hr Q12 IVPB Last administered on 09/18/16 09:18; Admin Dose 100 MLS/HR; Start 09/15/16 at 11:00 Amiodarone HCl (Cordarone) 200 mg DAILY GTB Last administered on 09/18/16 09:17 ; Admin Dose 200 MG; Start 09/15/16 at 09:00 Bisacodyl (Dulcolax Supp) 10 mg Q24H PRN [place] CONSTIPATION; Start 09/15/16 at 06: 30 Chlorhexidine Gluconate (Peridex) 15 ml BID MM Last administered on 09/18/16 09 :17; Admin Dose 15 ML; Start 09/15/16 at 09:00 Docusate Sodium (Colace) 200 mg QHS PRN PO CONSTIPATION; Start 09/15/16 at 06:30 Lisinopril (Zestril) 2.5 mg BID GTB Last administered on 09/15/16 09:24; Admin Dose 2.5 MG; Start 09/15/16 at 09:00; Status Future Hold Pantoprazole (Protonix Tab) 40 mg DAILY PO Last administered on 09/18/16 09:17 ; Admin Dose 40 MG; Start 09/15/16 at 09:00 Epoetin Kt (Epogen (Non Esrd/Non Oncology)) 3,000 units MoWeFr@17 SC Last administered on 09/16/16 17:15; Admin Dose 3,000 UNITS; Start 09/16/16 at 17:00 Epoetin Kt 2000 units 2,000 units MoWeFr@17 SC Last administered on 09/16/16 17:14; Admin Dose 2,000 UNITS; Start 09/16/16 at 17:00 Vancomycin HCl/ Sodium Chloride (Vancocin/NS) 250 ml @ 83.333 mls/ hr Q12H IVPB Last administered on 09/16/16 22:00; Admin Dose 83.333 MLS/HR; Start at 10:00; Status Future Hold Diphenhydramine HCl (Benadryl) 25 mg Q6H PRN IV ITCHING Last administered on 12:20; Admin Dose 25 MG; Start 09/15/16 at 21:00 Tramadol HCl (Ultram) 50 mg Q6H PRN GTB PAIN LEVEL 6-10; Start 09/17/16 at 12:00 Miscellaneous Information 1 ea NOTE XX ; Start 09/17/16 at 12:00 Insulin Aspart (Novolog Insulin Pen) NOVOLOG *MILD* ALGORI... Q6 SC Last administered on 09/18/16t 12:25; Admin Dose 3 UNIT; Start 09/18/16 at 06:00 Miscellaneous Information 1 ea NOTE XX ; Start 09/17/16 at 22:45 Glucose (Glutose) 15 gm Q15M PRN PO DECREASED GLUCOSE; Start 09/17/16 at 22:45 Glucose (Glutose) 22.5 gm Q15M PRN PO DECREASED GLUCOSE; Start 09/17/16 at 22:45 Dextrose (D50w Syringe) 25 ml Q15M PRN IV DECREASED GLUCOSE; Start 09/17/16 at 22:45 Dextrose (D50w Syringe) 50 ml Q15M PRN IV DECREASED GLUCOSE; Start 09/17/16 at 22:45 Glucagon (Glucagen) 1 mg Q15M PRN IM DECREASED GLUCOSE; Start 09/17/16 at 22:45 Glucose (Glutose) 15 gm Q15M PRN BUCCAL DECREASED GLUCOSE; Start 09/17/16 at 22: 45 Acetaminophen (Tylenol Tab) 650 mg Q4 PRN GTB PAIN AND OR ELEVATED TEMP; Start 09/18/16 at 11:30 Albuterol (Proventil 0.083% (Neb)) 2.5 mg Q3H PRN NEB WHEEZING AND SOB; Start 09/18/16 at 11:30 Ascorbic Acid (Vitamin C) 500 mg BID PO ; Start 09/18/16 at 21:00 Folic Acid (Folic Acid) 1 mg DAILY GTB ; Start 09/19/16 at 09:00 Hydroxyzine HCl (Atarax) 25 mg Q8H PRN PO ITCHING; Start 09/18/16 at 11:30 Lorazepam (Ativan) 1 mg Q8 PRN GTB ANXIETY; Start 09/18/16 at 11:30 Magnesium Hydroxide (Milk Of Mag) 30 ml DAILY PRN GTB CONSTIPATION; Start at 11:30 Midodrine (Proamatine) 5 mg Q6 PRN GTB HYPOTENSION; Start 09/18/16 at 11:30 Multivitamins Therapeutic (Theragran) 1 tab DAILY GTB ; Start 09/19/16 at 09:00 Sodium Biphosphate/ Sodium Phosphate (Fleet Enema Pediatric) 66.6 ml DAILY PRN [place] CONSTIPATION; Start 09/18/16 at 11:30 Ferrous Sulfate (Ferrous Sulfate (Ec)) 325 mg TID PO ; Start 09/18/16 at 14:00 Lactobacillus Acidophilus/ Rhamnosus (Culturelle) 1 cap BID PO ; Start 09/18/16 at 21:00 Insulin Aspart (Novolog Insulin Pen) 5 unit TID SC Last administered on t 12:37; Admin Dose 5 UNIT; Start 09/18/16 at 13:00 Insulin Detemir (Levemir) 18 unit HS SC ; Start 09/18/16 at 21:00 RAMON COWAN Sep 18, 2016 14:06
[2016-09-18] MEDS: FERROUS SULFATE (EC) 325 MG TAB PO SCH ×2 (15:04→20:57)
--- NOTE | 2016-09-18 15:47 | CONS ---
Date/Time of Note Date/Time of Note DATE: 09/18/16 TIME: 15:45 Assessment/Plan Assessment/Plan Chief Complaint/Hosp Course Assessment: Acute on chronic systolic heart failure Cardiomyopathy, LVEF 20-25% - unclear etiology, unclear if patient has ever had ischemic workup, possibly due to muscular dystrophy Acute kidney injury on chronic kidney disease Healthcare-associated pneumonia - on antibiotics Chronic ventilator-dependent respiratory failure Muscular dystrophy Paroxysmal atrial fibrillation and atrial flutter History of ventricular tachycardia (Torsades de pointes) - status post Bi-V ICD upgrade January 2015 (Codenvy) Diabetes mellitus Anemia of chronic disease History of right lower extremity deep vein thrombosis Severe peripheral arterial disease - prior CT LE angio with 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 of 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 SFA and severe disease of popliteal Recommendations: - echocardiogram showed LVEF 20-25%, RVSP 63 mmHg - continue Bumex 1mg BID - continue amiodarone 200mg daily - off beta-armando and JUAN inhibitor due to borderline blood pressures and renal failure, resume for systolic heart failure as able - consider restarting on chronic anticoagulation paroxysmal atrial fibrillation and history of deep vein thrombosis when clinically more stable Problems: Consultation Date/Type/Reason Admit Date/Time Sep 15, 2016 at 01:59 Initial Consult Date 09/18/16 Type of Consultation: Cardiology 24 HR Interval Summary Free Text/Dictation No acute events. Stable on ventilator, FiO2 35%. Echocardiogram yesterday showed LVEF 20-25%. Detailed Summary Additional Comments Unable to obtain review of systems, patient with tracheostomy. Exam/Review of Systems Vital Signs Vitals Vital Signs Date Time Temp Pulse Resp B/P Pulse Ox O2 Delivery O2 Flow Rate FiO2 09/18/16 15:05 60 18 98 35 09/18/16 11:42 98.4 95/50 09/15/16 04:30 Mechanical Ventilator Intake and Output 09/17/16 09/17/16 09/18/16 15:00 23:00 07:00 Intake Total 635 ml 620 ml Output Total 650 ml 850 ml Balance -15 ml -230 ml Exam Constitutional: No alert, No distress Psych: No nl mood/affect, No no complaints Head: atraumatic, normocephalic Eyes: nl conjunctiva, nl lids ENMT: nl external ears & nose, nl nasal mucosa & septum Neck: other (tracheostomy) Respiratory: crackles/rales, diminished breath sounds Cardiovascular: irregular rhythm Gastrointestinal: non-tender, soft Extremities: No clubbing, No cyanosis Neurological: No nl mental status, No nl speech Results Result Diagram: 09/18/16 0525 09/18/16 0525 Results 24 hrs Laboratory Tests Test 09/17/16 17:30 09/17/16 21:55 09/17/16 23:11 09/18/16 05:24 Bedside Glucose 232 H 242 H 227 H Random Vancomycin Level 33.9 Test 09/18/16 05:25 09/18/16 05:52 09/18/16 12:16 White Blood Count 8.6 # Red Blood Count 3.23 #L Hemoglobin 9.2 L Hematocrit 31.6 L Mean Corpuscular Volume 97.8 Mean Corpuscular Hemoglobin 28.5 L Mean Corpuscular Hemoglobin Concent 29.1 L Red Cell Distribution Width 20.1 H Platelet Count 301 # Mean Platelet Volume 10.5 H Neutrophils % 75.5 Lymphocytes % 9.2 L Monocytes % 6.0 Eosinophils % 8.3 H Basophils % 0.5 Nucleated Red Blood Cells % 0.0 Neutrophils # 6.5 Lymphocytes # 0.8 Monocytes # 0.5 Eosinophils # 0.7 H Basophils # 0.0 Nucleated Red Blood Cells # 0.0 Sodium Level 149 H Potassium Level 3.0 L Chloride Level 107 Carbon Dioxide Level 25 Anion Gap 20 H Blood Urea Nitrogen 103 H Creatinine 0.60 Glucose Level 222 H Calcium Level 9.1 Bedside Glucose 261 H 234 H Medications Medications Current Medications Lorazepam (Ativan) 0.5 mg Q6H PRN IV ANXIETY Last administered on 09/15/16 16: 29; Admin Dose 0.5 MG; Start 09/15/16 at 06:30 Ondansetron HCl (Zofran Inj) 4 mg Q6H PRN IV NAUSEA AND/OR VOMITING; Start 09/15 at 06:30 Acetaminophen (Tylenol Tab) 650 mg Q6H PRN PO PAIN LEVEL 1-3 OR FEVER Last administered on 09/16/16 20:10; Admin Dose 650 MG; Start 09/15/16 at 06:30 Acetaminophen (Tylenol Supp) 650 mg Q6H PRN [place] PAIN LEVEL 1-3 OR FEVER; Start 09/15/16 at 06:30 Morphine Sulfate 2 mg 2 mg Q4H PRN IV PAIN LEVEL 7-10 Last administered on 06:11; Admin Dose 2 MG; Start 09/15/16 at 06:30 Cefepime HCl (Maxipime 1gm/50 ml (Pmx)) 50 ml @ 100 mls/hr Q12 IVPB Last administered on 09/18/16 09:18; Admin Dose 100 MLS/HR; Start 09/15/16 at 11:00 Amiodarone HCl (Cordarone) 200 mg DAILY GTB Last administered on 09/18/16 09:17 ; Admin Dose 200 MG; Start 09/15/16 at 09:00 Bisacodyl (Dulcolax Supp) 10 mg Q24H PRN [place] CONSTIPATION; Start 09/15/16 at 06: 30 Chlorhexidine Gluconate (Peridex) 15 ml BID MM Last administered on 09/18/16 09 :17; Admin Dose 15 ML; Start 09/15/16 at 09:00 Docusate Sodium (Colace) 200 mg QHS PRN PO CONSTIPATION; Start 09/15/16 at 06:30 Lisinopril (Zestril) 2.5 mg BID GTB Last administered on 09/15/16 09:24; Admin Dose 2.5 MG; Start 09/15/16 at 09:00; Status Future Hold Pantoprazole (Protonix Tab) 40 mg DAILY PO Last administered on 09/18/16 09:17 ; Admin Dose 40 MG; Start 09/15/16 at 09:00 Epoetin Kt (Epogen (Non Esrd/Non Oncology)) 3,000 units MoWeFr@17 SC Last administered on 09/16/16 17:15; Admin Dose 3,000 UNITS; Start 09/16/16 at 17:00 Epoetin Kt 2000 units 2,000 units MoWeFr@17 SC Last administered on 09/16/16 17:14; Admin Dose 2,000 UNITS; Start 09/16/16 at 17:00 Vancomycin HCl/ Sodium Chloride (Vancocin/NS) 250 ml @ 83.333 mls/ hr Q12H IVPB Last administered on 09/16/16 22:00; Admin Dose 83.333 MLS/HR; Start at 10:00; Status Future Hold Diphenhydramine HCl (Benadryl) 25 mg Q6H PRN IV ITCHING Last administered on 12:20; Admin Dose 25 MG; Start 09/15/16 at 21:00 Tramadol HCl (Ultram) 50 mg Q6H PRN GTB PAIN LEVEL 6-10; Start 09/17/16 at 12:00 Miscellaneous Information 1 ea NOTE XX ; Start 09/17/16 at 12:00 Insulin Aspart (Novolog Insulin Pen) NOVOLOG *MILD* ALGORI... Q6 SC Last administered on 09/18/16 12:25; Admin Dose 3 UNIT; Start 09/18/16 at 06:00 Miscellaneous Information 1 ea NOTE XX ; Start 09/17/16 at 22:45 Glucose (Glutose) 15 gm Q15M PRN PO DECREASED GLUCOSE; Start 09/17/16 at 22:45 Glucose (Glutose) 22.5 gm Q15M PRN PO DECREASED GLUCOSE; Start 09/17/16 at 22:45 Dextrose (D50w Syringe) 25 ml Q15M PRN IV DECREASED GLUCOSE; Start 09/17/16 at 22:45 Dextrose (D50w Syringe) 50 ml Q15M PRN IV DECREASED GLUCOSE; Start 09/17/16 at 22:45 Glucagon (Glucagen) 1 mg Q15M PRN IM DECREASED GLUCOSE; Start 09/17/16 at 22:45 Glucose (Glutose) 15 gm Q15M PRN BUCCAL DECREASED GLUCOSE; Start 09/17/16 at 22: 45 Acetaminophen (Tylenol Tab) 650 mg Q4 PRN GTB PAIN AND OR ELEVATED TEMP; Start 09/18/16 at 11:30 Albuterol (Proventil 0.083% (Neb)) 2.5 mg Q3H PRN NEB WHEEZING AND SOB; Start 09/18/16 at 11:30 Ascorbic Acid (Vitamin C) 500 mg BID PO ; Start 09/18/16 at 21:00 Folic Acid (Folic Acid) 1 mg DAILY GTB ; Start 09/19/16 at 09:00 Hydroxyzine HCl (Atarax) 25 mg Q8H PRN PO ITCHING; Start 09/18/16 at 11:30 Lorazepam (Ativan) 1 mg Q8 PRN GTB ANXIETY; Start 09/18/16 at 11:30 Magnesium Hydroxide (Milk Of Mag) 30 ml DAILY PRN GTB CONSTIPATION; Start at 11:30 Midodrine (Proamatine) 5 mg Q6 PRN GTB HYPOTENSION; Start 09/18/16 at 11:30 Multivitamins Therapeutic (Theragran) 1 tab DAILY GTB ; Start 09/19/16 at 09:00 Sodium Biphosphate/ Sodium Phosphate (Fleet Enema Pediatric) 66.6 ml DAILY PRN [place] CONSTIPATION; Start 09/18/16 at 11:30 Ferrous Sulfate (Ferrous Sulfate (Ec)) 325 mg TID PO Last administered on 15:04; Admin Dose 325 MG; Start 09/18/16 at 14:00 Lactobacillus Acidophilus/ Rhamnosus (Culturelle) 1 cap BID PO ; Start 09/18/16 at 21:00 Insulin Aspart (Novolog Insulin Pen) 5 unit TID SC Last administered on 12:37; Admin Dose 5 UNIT; Start 09/18/16 at 13:00 Insulin Detemir (Levemir) 18 unit HS SC ; Start 09/18/16 at 21:00 ERICK GUTHRIE MD Sep 18, 2016 15:46
[2016-09-18] MEDS: EPOETIN 2000 UNITS/ML INJ (NON ESRD/NON ONCOLOGY) SC SCH (17:47)
[2016-09-18] MEDS: EPOETIN 3000 UNITS/ML (NON ESRD/NON ONCOLOGY) SC SCH (17:48)
[2016-09-18] MEDS: ASCORBIC ACID 500 MG TAB PO SCH (20:57)
[2016-09-18] MEDS: LACTOBACILLUS RHAMNOSUS CAP PO SCH (20:58)
[2016-09-18] MEDS ORDERED: MANNOSE GTB SCH (21:00)
[2016-09-18] MEDS ORDERED: VITC GTB SCH (21:00)
[2016-09-18] MEDS ORDERED: CRAN GTB SCH (21:00)
[2016-09-18] MEDS ORDERED: INULIN GTB SCH (21:00)
[2016-09-18] MEDS ORDERED: INSULIN DETEMIR 18 UNIT SC SCH ×2 (21:00)
[2016-09-18] MEDS ORDERED: BROM GTB SCH (21:00)
[2016-09-18] MEDS ORDERED: INSULIN DETEMIR 26 UNIT SC SCH (21:00)
[2016-09-18] MEDS: INSULIN DETEMIR [LEVEMIR] 3ML CART SC SCH (21:08)
[2016-09-19] VITALS (25 sets, daily range): BP systolic 95–121; BP diastolic 52–66; PULSE 53–61; RESP 16–18
[2016-09-19] MEDS: ALBUTEROL 18 GM INHALER INH SCH ×6 (01:22→19:48)
[2016-09-19] MEDS: BUMETANIDE 1 MG TAB GTB SCH ×2 (05:04→18:03)
[2016-09-19] MEDS: INSULIN ASPART [NOVOLOG] 3 ML PEN SC SCH ×6 (05:21→21:00)
[2016-09-19 06:38] LABS: ABNORMAL IP MESSAGE 1; BASOPHIL # 0.1 10^3/ul (0.0-0.1); BASOPHILS % 0.7 % (0.0-2.0); EOSINOPHILS % 14.9 % (0.0-7.0); HEMOGLOBIN 8.9 g/dl (12.0-16.0); LYMPHOCYTES # 0.9 10^3/ul (0.8-2.9); LYMPHOCYTES % 13.4 % (15.0-51.0); MEAN CORPUSCULAR HEMOGLOBIN 28.4 pg (29.0-33.0); MEAN CORPUSCULAR HGB CONC 28.7 g/dl (32.0-37.0); MEAN PLATELET VOLUME 10.9 fl (7.4-10.4); MONOCYTE # 0.6 10^3/ul (0.3-0.9); MONOCYTES % 7.9 % (0.0-11.0); NEUTROPHIL # 4.3 10^3/ul (1.6-7.5); NEUTROPHILS % 62.2 % (39.0-77.0); PLATELET COUNT 294 10^3/UL (140-415); RED BLOOD COUNT 3.13 10^6/ul (4.20-5.40); RED CELL DISTRIBUTION WIDTH 20.1 % (11.5-14.5); WHITE BLOOD COUNT 6.9 10^3/ul (4.8-10.8)
[2016-09-19 06:47] LABS: POSITIVE DIFF @See below
[2016-09-19 06:59] LABS: CALCIUM 9.4 mg/dl (8.4-10.2); CREATININE 0.56 mg/dl (0.44-1.00); POTASSIUM 3.2 mmol/L (3.5-5.1)
[2016-09-19 07:09] LABS: MAGNESIUM 2.3 mg/dl (1.7-2.5); PHOSPHORUS 4.6 mg/dl (2.5-4.9)
[2016-09-19] MEDS: CHLORHEXIDINE GLUCONATE 15 ML UD CUP MM SCH ×2 (08:53→20:54)
[2016-09-19] MEDS: LACTOBACILLUS RHAMNOSUS CAP PO SCH ×2 (08:53→20:53)
[2016-09-19] MEDS: PANTOPRAZOLE (EC) 40 MG TAB PO SCH (08:53)
[2016-09-19] MEDS: AMIODARONE 200 MG TAB GTB SCH (08:53)
[2016-09-19] MEDS: FERROUS SULFATE (EC) 325 MG TAB PO SCH ×3 (08:53→20:53)
[2016-09-19] MEDS: FOLIC ACID 1 MG TAB GTB SCH (08:53)
[2016-09-19] MEDS: CEFEPIME 1GM/50 ML (PMX) 50 ML IVPB SCH (08:54)
[2016-09-19] MEDS: ASCORBIC ACID 500 MG TAB PO SCH ×2 (08:54→20:54)
[2016-09-19] MEDS: MULTIVITAMINS THERAPEUTIC TAB GTB SCH (08:54)
[2016-09-19] MEDS ORDERED: ASCORBIC ACID 100 MG/ML 120ML BTL GTB SCH (09:00)
[2016-09-19] MEDS ORDERED: NON-FORMULARY/PATIENT OWN MED (Cranberry Extract (Cranberry) 425 MG) GTB SCH (09:00)
[2016-09-19] MEDS: LORAZEPAM 2 MG INJ IV PRN (09:54)
[2016-09-19] MEDS ORDERED: POTASSIUM CHLORIDE 250 ML IVPB ONE (10:00)
[2016-09-19] MEDS: DIPHENHYDRAMINE 50 MG INJ IV PRN (12:13)
--- NOTE | 2016-09-19 12:46 | PN ---
Date/Time of Note Date/Time of Note DATE: 09/19/16 TIME: 12:41 Assessment/Plan VTE Prophylaxis VTE Prophylaxis Intervention: SCD's Lines/Catheters IV Catheter Type (from [facility]): [facility] Urinary Cath still in place: Yes Reason Cath still needed: urinary retention Assessment/Plan Chief Complaint/Hosp Course Assessment and plan: 50-year-old female with past medical history of quadriplegia, muscular dystrophy, trach/vent dependent respiratory failure, anemia, ascites, dysphagia status post PEG tube feeding, hypertension, anxiety, diabetes mellitus, GERD, cardiomyopathy with EF of 30% to 35%, AICD who was sent [facility] for hypoxia and AMS, likely secondary to pneumonia. 1. Healthcare associated pneumonia:- Patient for hypoxemia most likely secondary to a pneumonia, which also appears to be multifocal pneumonia. Slowly improving. -Continue antibiotics. -Follow-up culture. Consider ID consult if does not improve 2. Chronic Trach/vent dependent respiratory failure - Continue trach support. Follow-up pulmonary recommendation 3. Cardiomyopathy with EF of 30% to 35%, AICD -appreciate cardiology consult, continue current cardiac medications 4. Hyperkalemia-resolved, follow-up renal REC'S. 5. Altered mentation-slightly improved, monitor for now. 6. Dysphagia s/p PEG tube-again, G-tube was evaluated by GI team yesterday. Patient with some abdominal distention now -continue tube feeds as tolerated. -We will also check KUB because of the abdominal distention and firmness. 7. Diabetes - A1c = 5.2. Sugar stable presently - continue sliding scale insulin, Levemir, aspart TID 8. History of ascites, requiring paracentesis-monitor abdomen. 9. Azotemia-slightly improved, but still very elevated BUN. Follow-up renal recommendations. On Bumex p.o. twice daily 10. History of hypertension-continue current meds 11. History of quadriplegia secondary to muscular dystrophy -monitor 12. Anemia: Hemoglobin presently stable -Monitor for now 13. Hypernatremia: Sodium is 151, we will cautiously add D5W IV fluids check BMP in the morning. Problems: Subjective 24 Hr Interval Summary Free Text/Dictation Patient with some anxiety this morning, also noted with distended abdomen. G- tube was evaluated and fixed by GI team yesterday. Exam/Review of Systems Vital Signs Vitals Vital Signs Date Time Temp Pulse Resp B/P Pulse Ox O2 Delivery O2 Flow Rate FiO2 09/19/16 11:50 98.5 64 18 121/61 91 09/19/16 09:51 35 Intake and Output 09/18/16 09/18/16 09/19/16 15:00 23:00 07:00 Intake Total 1085 ml 1220 ml Output Total 900 ml 750 ml Balance 185 ml 470 ml Exam Constitutional: Sleeping, no acute distress Head: atraumatic, normocephalic Neck: other (Trach tube in place) Respiratory: diminished breath sounds Cardiovascular: nl pulses, regular rate and rhythm Gastrointestinal: other (PEG tube in place), somewhat distended, slightly firm Extremities: edema Results Result Diagram: 09/19/16 0530 09/19/16 0530 Results 24 hrs Laboratory Tests Test 09/18/16 17:45 09/18/16 20:56 09/18/16 23:14 09/19/16 05:02 Bedside Glucose 231 H 207 186 157 Test 09/19/16 05:30 09/19/16 09:01 09/19/16 12:15 White Blood Count 6.9 Red Blood Count 3.13 L Hemoglobin 8.9 L Hematocrit 31.0 L Mean Corpuscular Volume 99.0 Mean Corpuscular Hemoglobin 28.4 L Mean Corpuscular Hemoglobin Concent 28.7 L Red Cell Distribution Width 20.1 H Platelet Count 294 Mean Platelet Volume 10.9 H Neutrophils % 62.2 Lymphocytes % 13.4 L Monocytes % 7.9 Eosinophils % 14.9 H Basophils % 0.7 Nucleated Red Blood Cells % 0.0 Neutrophils # 4.3 Lymphocytes # 0.9 Monocytes # 0.6 Eosinophils # 1.0 H Basophils # 0.1 Nucleated Red Blood Cells # 0.0 Sodium Level 151 H Potassium Level 3.2 L Chloride Level 107 Carbon Dioxide Level 29 Anion Gap 18 H Blood Urea Nitrogen 96 H Creatinine 0.56 Glucose Level 160 Calcium Level 9.4 Phosphorus Level 4.6 Magnesium Level 2.3 Bedside Glucose 205 174 Medications Medications Current Medications Ondansetron HCl (Zofran Inj) 4 mg Q6H PRN IV NAUSEA AND/OR VOMITING; Start 09/15 at 06:30 Acetaminophen (Tylenol Tab) 650 mg Q6H PRN PO PAIN LEVEL 1-3 OR FEVER Last administered on 09/16/16t 20:10; Admin Dose 650 MG; Start 09/15/16 at 06:30 Acetaminophen (Tylenol Supp) 650 mg Q6H PRN [place] PAIN LEVEL 1-3 OR FEVER; Start 09/15/16 at 06:30 Amiodarone HCl (Cordarone) 200 mg DAILY GTB Last administered on 09/19/16 08:53 ; Admin Dose 200 MG; Start 09/15/16 at 09:00 Bisacodyl (Dulcolax Supp) 10 mg Q24H PRN [place] CONSTIPATION; Start 09/15/16 at 06: 30 Chlorhexidine Gluconate (Peridex) 15 ml BID MM Last administered on 09/19/16 08 :53; Admin Dose 15 ML; Start 09/15/16 at 09:00 Docusate Sodium (Colace) 200 mg QHS PRN PO CONSTIPATION; Start 09/15/16 at 06:30 Lisinopril (Zestril) 2.5 mg BID GTB Last administered on 09/15/16 09:24; Admin Dose 2.5 MG; Start 09/15/16 at 09:00; Status Future Hold Pantoprazole (Protonix Tab) 40 mg DAILY PO Last administered on 09/19/16 08:53 ; Admin Dose 40 MG; Start 09/15/16 at 09:00 Epoetin Kt (Epogen (Non Esrd/Non Oncology)) 3,000 units MoWeFr@17 SC Last administered on 09/18/16 17:48; Admin Dose 3,000 UNITS; Start 09/16/16 at 17:00 Epoetin Kt 2000 units 2,000 units MoWeFr@17 SC Last administered on 09/18/16 17:47; Admin Dose 2,000 UNITS; Start 09/16/16 at 17:00 Vancomycin HCl/ Sodium Chloride (Vancocin/NS) 250 ml @ 83.333 mls/ hr Q12H IVPB Last administered on 09/16/16 22:00; Admin Dose 83.333 MLS/HR; Start at 10:00; Status Future Hold Diphenhydramine HCl (Benadryl) 25 mg Q6H PRN IV ITCHING Last administered on 12:13; Admin Dose 25 MG; Start 09/15/16 at 21:00 Tramadol HCl (Ultram) 50 mg Q6H PRN GTB PAIN LEVEL 6-10; Start 09/17/16 at 12:00 Miscellaneous Information 1 ea NOTE XX ; Start 09/17/16 at 12:00 Insulin Aspart (Novolog Insulin Pen) NOVOLOG *MILD* ALGORI... Q6 SC Last administered on 09/19/16 12:20; Admin Dose 1 UNIT; Start 09/18/16 at 06:00 Miscellaneous Information 1 ea NOTE XX ; Start 09/17/16 at 22:45 Glucose (Glutose) 15 gm Q15M PRN PO DECREASED GLUCOSE; Start 09/17/16 at 22:45 Glucose (Glutose) 22.5 gm Q15M PRN PO DECREASED GLUCOSE; Start 09/17/16 at 22:45 Dextrose (D50w Syringe) 25 ml Q15M PRN IV DECREASED GLUCOSE; Start 09/17/16 at 22:45 Dextrose (D50w Syringe) 50 ml Q15M PRN IV DECREASED GLUCOSE; Start 09/17/16 at 22:45 Glucagon (Glucagen) 1 mg Q15M PRN IM DECREASED GLUCOSE; Start 09/17/16 at 22:45 Glucose (Glutose) 15 gm Q15M PRN BUCCAL DECREASED GLUCOSE; Start 09/17/16 at 22: 45 Acetaminophen (Tylenol Tab) 650 mg Q4 PRN GTB PAIN AND OR ELEVATED TEMP; Start 09/18/16 at 11:30 Albuterol (Proventil 0.083% (Neb)) 2.5 mg Q3H PRN NEB WHEEZING AND SOB; Start 09/18/16 at 11:30 Ascorbic Acid (Vitamin C) 500 mg BID PO Last administered on 09/19/16 08:54; Admin Dose 500 MG; Start 09/18/16 at 21:00 Folic Acid (Folic Acid) 1 mg DAILY GTB Last administered on 09/19/16 08:53; Admin Dose 1 MG; Start 09/19/16 at 09:00 Hydroxyzine HCl (Atarax) 25 mg Q8H PRN PO ITCHING; Start 09/18/16 at 11:30 Lorazepam (Ativan) 1 mg Q8 PRN GTB ANXIETY; Start 09/18/16 at 11:30 Magnesium Hydroxide (Milk Of Mag) 30 ml DAILY PRN GTB CONSTIPATION; Start at 11:30 Midodrine (Proamatine) 5 mg Q6 PRN GTB HYPOTENSION; Start 09/18/16 at 11:30 Multivitamins Therapeutic (Theragran) 1 tab DAILY GTB Last administered on 08:54; Admin Dose 1 TAB; Start 09/19/16 at 09:00 Sodium Biphosphate/ Sodium Phosphate (Fleet Enema Pediatric) 66.6 ml DAILY PRN [place] CONSTIPATION; Start 09/18/16 at 11:30 Ferrous Sulfate (Ferrous Sulfate (Ec)) 325 mg TID PO Last administered on 12:13; Admin Dose 325 MG; Start 09/18/16 at 14:00 Lactobacillus Acidophilus/ Rhamnosus (Culturelle) 1 cap BID PO Last administered on 09/19/16 08:53; Admin Dose 1 CAP; Start 09/18/16 at 21:00 Insulin Aspart (Novolog Insulin Pen) 5 unit TID SC Last administered on 12:19; Admin Dose 5 UNIT; Start 09/18/16 at 13:00 Insulin Detemir 18 unit 18 unit HS SC Last administered on 09/18/16 21:08; Admin Dose 18 UNIT; Start 09/18/16 at 21:00 Cefepime HCl 50 ml @ 100 mls/hr Q24H IVPB Last administered on 09/19/16 08:54 ; Admin Dose 100 MLS/HR; Start 09/19/16 at 09:00 Potassium Chloride (KCl 40 MEQ/250 ML NS) 250 ml @ 62.5 mls/hr ONCE ONCE IVPB Last administered on 09/19/16 10:19; Admin Dose 62.5 MLS/HR; Start 09/19/16 at 10:00; Stop 09/19/16 at 13:59 Morphine Sulfate 2 mg 2 mg Q4H PRN IV PAIN LEVEL 7-10; Start 09/19/16 at 11:30 Dextrose (D5W) 1,000 ml @ 75 mls/hr [id number] IV ; Start 09/19/16 at 13:00 Lorazepam (Ativan) 1 mg Q6H PRN IV ANXIETY; Start 09/19/16 at 18:30; Status FROY LOVELACE Sep 19, 2016 12:46
--- NOTE | 2016-09-19 13:03 | CONS ---
Date/Time of Note Date/Time of Note DATE: 09/19/16 TIME: 13:02 Assessment/Plan Assessment/Plan Chief Complaint/Hosp Course 1. Nonoliguric acute kidney injury on top of chronic kidney disease with a baseline creatinine of 0.6 mg/dL. -Etiology likely secondary to hemodynamics. - Renal function appears stable. - At this point, continue to monitor. Continue supportive care. Renally dose medications. Avoid nephrotoxins. 2. Hypokalemia. We will replete with potassium chloride. 3. Hypernatremia. The patient has a free water deficit of 2.5 L. We will increase free water flushes 200 mL q.4 hours. 4. Mineral bone disorder. Continue to monitor calcium and phosphorus levels. 5. Anemia. Monitor H and H levels. 6. Sepsis secondary to healthcare-associated pneumonia. Continue current antibiotic regimen. 7. Ventilatory-dependent respiratory failure. Vent settings have been reviewed. ABGs have been reviewed. Continue to monitor. Follow up with Pulmonary. 8. History of cardiomyopathy. Continue medical management. 9. Status post percutaneous endoscopic gastrostomy. Continue tube feeding. 10. Quadriplegia secondary to muscular dystrophy. 11. Hypertension. Continue current medical management. 12. History of cardiomyopathy. Continue current medical management. Continue low-dose diuretic therapy. Follow up with Cardiology. 13. History of ascites. 14. [id number] congestive heart failure. Continue current treatment plan as stated above. Problems: Consultation Date/Type/Reason Admit Date/Time Sep 15, 2016 at 01:59 Initial Consult Date 09/18/16 Type of Consultation: Cardiology 24 HR Interval Summary Free Text/Dictation all noted good uop. Exam/Review of Systems Vital Signs Vitals Vital Signs Date Time Temp Pulse Resp B/P Pulse Ox O2 Delivery O2 Flow Rate FiO2 09/19/16 11:50 98.5 64 18 121/61 91 09/19/16 09:51 35 Intake and Output 09/18/16 09/18/16 09/19/16 15:00 23:00 07:00 Intake Total 1085 ml 1220 ml Output Total 900 ml 750 ml Balance 185 ml 470 ml Exam Constitutional: Sleeping, no acute distress Head: atraumatic, normocephalic Neck: other (Trach tube in place) Respiratory: diminished breath sounds Cardiovascular: nl pulses, regular rate and rhythm Gastrointestinal: other (PEG tube in place), somewhat distended, slightly firm Extremities: edema Results Result Diagram: 09/19/16 0530 09/19/16 0530 Results 24 hrs Laboratory Tests Test 09/18/16 17:45 09/18/16 20:56 09/18/16 23:14 09/19/16 05:02 Bedside Glucose 231 H 207 186 157 Test 09/19/16 05:30 09/19/16 09:01 09/19/16 12:15 White Blood Count 6.9 Red Blood Count 3.13 L Hemoglobin 8.9 L Hematocrit 31.0 L Mean Corpuscular Volume 99.0 Mean Corpuscular Hemoglobin 28.4 L Mean Corpuscular Hemoglobin Concent 28.7 L Red Cell Distribution Width 20.1 H Platelet Count 294 Mean Platelet Volume 10.9 H Neutrophils % 62.2 Lymphocytes % 13.4 L Monocytes % 7.9 Eosinophils % 14.9 H Basophils % 0.7 Nucleated Red Blood Cells % 0.0 Neutrophils # 4.3 Lymphocytes # 0.9 Monocytes # 0.6 Eosinophils # 1.0 H Basophils # 0.1 Nucleated Red Blood Cells # 0.0 Sodium Level 151 H Potassium Level 3.2 L Chloride Level 107 Carbon Dioxide Level 29 Anion Gap 18 H Blood Urea Nitrogen 96 H Creatinine 0.56 Glucose Level 160 Calcium Level 9.4 Phosphorus Level 4.6 Magnesium Level 2.3 Bedside Glucose 205 174 Medications Medications Current Medications Ondansetron HCl (Zofran Inj) 4 mg Q6H PRN IV NAUSEA AND/OR VOMITING; Start 09/15 at 06:30 Acetaminophen (Tylenol Tab) 650 mg Q6H PRN PO PAIN LEVEL 1-3 OR FEVER Last administered on 09/16/16 20:10; Admin Dose 650 MG; Start 09/15/16 at 06:30 Acetaminophen (Tylenol Supp) 650 mg Q6H PRN [place] PAIN LEVEL 1-3 OR FEVER; Start 09/15/16 at 06:30 Amiodarone HCl (Cordarone) 200 mg DAILY GTB Last administered on 09/19/16 08:53 ; Admin Dose 200 MG; Start 09/15/16 at 09:00 Bisacodyl (Dulcolax Supp) 10 mg Q24H PRN [place] CONSTIPATION; Start 09/15/16 at 06: 30 Chlorhexidine Gluconate (Peridex) 15 ml BID MM Last administered on 09/19/16 08 :53; Admin Dose 15 ML; Start 09/15/16 at 09:00 Docusate Sodium (Colace) 200 mg QHS PRN PO CONSTIPATION; Start 09/15/16 at 06:30 Lisinopril (Zestril) 2.5 mg BID GTB Last administered on 09/15/16 09:24; Admin Dose 2.5 MG; Start 09/15/16 at 09:00; Status Future Hold Pantoprazole (Protonix Tab) 40 mg DAILY PO Last administered on 09/19/16 08:53 ; Admin Dose 40 MG; Start 09/15/16 at 09:00 Epoetin Kt (Epogen (Non Esrd/Non Oncology)) 3,000 units MoWeFr@17 SC Last administered on 09/18/16 17:48; Admin Dose 3,000 UNITS; Start 09/16/16 at 17:00 Epoetin Kt 2000 units 2,000 units MoWeFr@17 SC Last administered on 09/18/16 17:47; Admin Dose 2,000 UNITS; Start 09/16/16 at 17:00 Vancomycin HCl/ Sodium Chloride (Vancocin/NS) 250 ml @ 83.333 mls/ hr Q12H IVPB Last administered on 09/16/16 22:00; Admin Dose 83.333 MLS/HR; Start at 10:00; Status Future Hold Diphenhydramine HCl (Benadryl) 25 mg Q6H PRN IV ITCHING Last administered on 12:13; Admin Dose 25 MG; Start 09/15/16 at 21:00 Tramadol HCl (Ultram) 50 mg Q6H PRN GTB PAIN LEVEL 6-10; Start 09/17/16 at 12:00 Miscellaneous Information 1 ea NOTE XX ; Start 09/17/16 at 12:00 Insulin Aspart (Novolog Insulin Pen) NOVOLOG *MILD* ALGORI... Q6 SC Last administered on 09/19/16 12:20; Admin Dose 1 UNIT; Start 09/18/16 at 06:00 Miscellaneous Information 1 ea NOTE XX ; Start 09/17/16 at 22:45 Glucose (Glutose) 15 gm Q15M PRN PO DECREASED GLUCOSE; Start 09/17/16 at 22:45 Glucose (Glutose) 22.5 gm Q15M PRN PO DECREASED GLUCOSE; Start 09/17/16 at 22:45 Dextrose (D50w Syringe) 25 ml Q15M PRN IV DECREASED GLUCOSE; Start 09/17/16 at 22:45 Dextrose (D50w Syringe) 50 ml Q15M PRN IV DECREASED GLUCOSE; Start 09/17/16 at 22:45 Glucagon (Glucagen) 1 mg Q15M PRN IM DECREASED GLUCOSE; Start 09/17/16 at 22:45 Glucose (Glutose) 15 gm Q15M PRN BUCCAL DECREASED GLUCOSE; Start 09/17/16 at 22: 45 Acetaminophen (Tylenol Tab) 650 mg Q4 PRN GTB PAIN AND OR ELEVATED TEMP; Start 09/18/16 at 11:30 Albuterol (Proventil 0.083% (Neb)) 2.5 mg Q3H PRN NEB WHEEZING AND SOB; Start 09/18/16 at 11:30 Ascorbic Acid (Vitamin C) 500 mg BID PO Last administered on 09/19/16 08:54; Admin Dose 500 MG; Start 09/18/16 at 21:00 Folic Acid (Folic Acid) 1 mg DAILY GTB Last administered on 09/19/16 08:53; Admin Dose 1 MG; Start 09/19/16 at 09:00 Hydroxyzine HCl (Atarax) 25 mg Q8H PRN PO ITCHING; Start 09/18/16 at 11:30 Lorazepam (Ativan) 1 mg Q8 PRN GTB ANXIETY; Start 09/18/16 at 11:30 Magnesium Hydroxide (Milk Of Mag) 30 ml DAILY PRN GTB CONSTIPATION; Start at 11:30 Midodrine (Proamatine) 5 mg Q6 PRN GTB HYPOTENSION; Start 09/18/16 at 11:30 Multivitamins Therapeutic (Theragran) 1 tab DAILY GTB Last administered on 08:54; Admin Dose 1 TAB; Start 09/19/16 at 09:00 Sodium Biphosphate/ Sodium Phosphate (Fleet Enema Pediatric) 66.6 ml DAILY PRN [place] CONSTIPATION; Start 09/18/16 at 11:30 Ferrous Sulfate (Ferrous Sulfate (Ec)) 325 mg TID PO Last administered on 12:13; Admin Dose 325 MG; Start 09/18/16 at 14:00 Lactobacillus Acidophilus/ Rhamnosus (Culturelle) 1 cap BID PO Last administered on 09/19/16 08:53; Admin Dose 1 CAP; Start 09/18/16 at 21:00 Insulin Aspart (Novolog Insulin Pen) 5 unit TID SC Last administered on 12:19; Admin Dose 5 UNIT; Start 09/18/16 at 13:00 Insulin Detemir 18 unit 18 unit HS SC Last administered on 09/18/16 21:08; Admin Dose 18 UNIT; Start 09/18/16 at 21:00 Cefepime HCl 50 ml @ 100 mls/hr Q24H IVPB Last administered on 09/19/16 08:54 ; Admin Dose 100 MLS/HR; Start 09/19/16 at 09:00 Potassium Chloride (KCl 40 MEQ/250 ML NS) 250 ml @ 62.5 mls/hr ONCE ONCE IVPB Last administered on 09/19/16 10:19; Admin Dose 62.5 MLS/HR; Start 09/19/16 at 10:00; Stop 09/19/16 at 13:59 Morphine Sulfate 2 mg 2 mg Q4H PRN IV PAIN LEVEL 7-10; Start 09/19/16 at 11:30 Dextrose (D5W) 1,000 ml @ 75 mls/hr [id number] IV ; Start 09/19/16 at 13:00 Lorazepam (Ativan) 1 mg Q6H PRN IV ANXIETY; Start 09/19/16 at 18:30 ALINA SANTIAGO MD Sep 19, 2016 13:03
[2016-09-19] MEDS: DEXTROSE 5% 1,000 ML IV SCH (13:06)
[2016-09-19] MEDS ORDERED: BARIUM SULF 2% 450 ML BTL (BERRY SMOOTHIE) PO ONE (13:30)
--- NOTE | 2016-09-19 13:48 | RADRPT ---
PROCEDURE: XR Abdomen. CLINICAL INDICATION: Abdominal distension . Rule out small bowel obstruction. TECHNIQUE: AP abdomen x-ray. COMPARISON: None. FINDINGS: There is overall increase density of the abdomen with centralization of bowel loops suggesting ascit es. There is mild distension and fecal retention seen in the sigmoid colon. There is no evidence o f small bowel dilatation, obstruction or free air. The osseous structures are unremarkable. There ar e diffuse bilateral pulmonary infiltrates with left-sided AICD/pacer in place. IMPRESSION: Increased density of the abdomen consistent with ascites. Mild retained feces and gaseous distension of the sigmoid colon. No evidence of small bowel dilatation or obstruction. RPTAT: QQ .Ashu Joya MD, Date Time Electronically viewed and signed by .Ashu Joya MD, on 09/19/2016 13:47 .L/
--- NOTE | 2016-09-19 16:32 | CONS ---
Date/Time of Note Date/Time of Note DATE: 09/19/16 TIME: 16:31 Consult Date/Type/Reason Admit Date/Time Sep 15, 2016 at 01:59 Initial Consult Date 09/18/16 Type of Consultation: Pulm Subjective On vent; no events. Objective Vital Signs Date Time Temp Pulse Resp B/P Pulse Ox O2 Delivery O2 Flow Rate FiO2 09/19/16 16:24 60 09/19/16 15:21 98.5 18 109/66 100 09/19/16 09:51 35 Intake and Output 09/18/16 09/18/16 09/19/16 15:00 23:00 07:00 Intake Total 1085 ml 1220 ml Output Total 900 ml 750 ml Balance 185 ml 470 ml Exam HEENT: Neck supple; no JVD; no LAD CVS: RRR, S1 and S2 CHEST: Coarse rhonchi b/l ABD: Soft, NT, + BS EXT: No c/c/e Results/Medications Result Diagram: 09/19/16 0530 09/19/16 0530 Results 24 hrs Laboratory Tests Test 09/18/16 17:45 09/18/16 20:56 09/18/16 23:14 09/19/16 05:02 Bedside Glucose 231 H 207 186 157 Test 09/19/16 05:30 09/19/16 09:01 09/19/16 12:15 White Blood Count 6.9 Red Blood Count 3.13 L Hemoglobin 8.9 L Hematocrit 31.0 L Mean Corpuscular Volume 99.0 Mean Corpuscular Hemoglobin 28.4 L Mean Corpuscular Hemoglobin Concent 28.7 L Red Cell Distribution Width 20.1 H Platelet Count 294 Mean Platelet Volume 10.9 H Neutrophils % 62.2 Lymphocytes % 13.4 L Monocytes % 7.9 Eosinophils % 14.9 H Basophils % 0.7 Nucleated Red Blood Cells % 0.0 Neutrophils # 4.3 Lymphocytes # 0.9 Monocytes # 0.6 Eosinophils # 1.0 H Basophils # 0.1 Nucleated Red Blood Cells # 0.0 Sodium Level 151 H Potassium Level 3.2 L Chloride Level 107 Carbon Dioxide Level 29 Anion Gap 18 H Blood Urea Nitrogen 96 H Creatinine 0.56 Glucose Level 160 Calcium Level 9.4 Phosphorus Level 4.6 Magnesium Level 2.3 Bedside Glucose 205 174 Medications Current Medications Ondansetron HCl (Zofran Inj) 4 mg Q6H PRN IV NAUSEA AND/OR VOMITING; Start 09/15 at 06:30 Acetaminophen (Tylenol Tab) 650 mg Q6H PRN PO PAIN LEVEL 1-3 OR FEVER Last administered on 09/16/16 20:10; Admin Dose 650 MG; Start 09/15/16 at 06:30 Acetaminophen (Tylenol Supp) 650 mg Q6H PRN [place] PAIN LEVEL 1-3 OR FEVER; Start 09/15/16 at 06:30 Amiodarone HCl (Cordarone) 200 mg DAILY GTB Last administered on 09/19/16 08:53 ; Admin Dose 200 MG; Start 09/15/16 at 09:00 Bisacodyl (Dulcolax Supp) 10 mg Q24H PRN [place] CONSTIPATION; Start 09/15/16 at 06: 30 Chlorhexidine Gluconate (Peridex) 15 ml BID MM Last administered on 09/19/16 08 :53; Admin Dose 15 ML; Start 09/15/16 at 09:00 Docusate Sodium (Colace) 200 mg QHS PRN PO CONSTIPATION; Start 09/15/16 at 06:30 Lisinopril (Zestril) 2.5 mg BID GTB Last administered on 09/15/16 09:24; Admin Dose 2.5 MG; Start 09/15/16 at 09:00; Status Future Hold Pantoprazole (Protonix Tab) 40 mg DAILY PO Last administered on 09/19/16 08:53 ; Admin Dose 40 MG; Start 09/15/16 at 09:00 Epoetin Kt (Epogen (Non Esrd/Non Oncology)) 3,000 units MoWeFr@17 SC Last administered on 09/18/16 17:48; Admin Dose 3,000 UNITS; Start 09/16/16 at 17:00 Epoetin Kt 2000 units 2,000 units MoWeFr@17 SC Last administered on 09/18/16 17:47; Admin Dose 2,000 UNITS; Start 09/16/16 at 17:00 Vancomycin HCl/ Sodium Chloride (Vancocin/NS) 250 ml @ 83.333 mls/ hr Q12H IVPB Last administered on 09/16/16 22:00; Admin Dose 83.333 MLS/HR; Start at 10:00; Status Future Hold Diphenhydramine HCl (Benadryl) 25 mg Q6H PRN IV ITCHING Last administered on 12:13; Admin Dose 25 MG; Start 09/15/16 at 21:00 Tramadol HCl (Ultram) 50 mg Q6H PRN GTB PAIN LEVEL 6-10; Start 09/17/16 at 12:00 Miscellaneous Information 1 ea NOTE XX ; Start 09/17/16 at 12:00 Insulin Aspart (Novolog Insulin Pen) NOVOLOG *MILD* ALGORI... Q6 SC Last administered on 09/19/16 12:20; Admin Dose 1 UNIT; Start 09/18/16 at 06:00 Miscellaneous Information 1 ea NOTE XX ; Start 09/17/16 at 22:45 Glucose (Glutose) 15 gm Q15M PRN PO DECREASED GLUCOSE; Start 09/17/16 at 22:45 Glucose (Glutose) 22.5 gm Q15M PRN PO DECREASED GLUCOSE; Start 09/17/16 at 22:45 Dextrose (D50w Syringe) 25 ml Q15M PRN IV DECREASED GLUCOSE; Start 09/17/16 at 22:45 Dextrose (D50w Syringe) 50 ml Q15M PRN IV DECREASED GLUCOSE; Start 09/17/16 at 22:45 Glucagon (Glucagen) 1 mg Q15M PRN IM DECREASED GLUCOSE; Start 09/17/16 at 22:45 Glucose (Glutose) 15 gm Q15M PRN BUCCAL DECREASED GLUCOSE; Start 09/17/16 at 22: 45 Acetaminophen (Tylenol Tab) 650 mg Q4 PRN GTB PAIN AND OR ELEVATED TEMP; Start 09/18/16 at 11:30 Albuterol (Proventil 0.083% (Neb)) 2.5 mg Q3H PRN NEB WHEEZING AND SOB; Start 09/18/16 at 11:30 Ascorbic Acid (Vitamin C) 500 mg BID PO Last administered on 09/19/16 08:54; Admin Dose 500 MG; Start 09/18/16 at 21:00 Folic Acid (Folic Acid) 1 mg DAILY GTB Last administered on 09/19/16 08:53; Admin Dose 1 MG; Start 09/19/16 at 09:00 Hydroxyzine HCl (Atarax) 25 mg Q8H PRN PO ITCHING; Start 09/18/16 at 11:30 Lorazepam (Ativan) 1 mg Q8 PRN GTB ANXIETY; Start 09/18/16 at 11:30 Magnesium Hydroxide (Milk Of Mag) 30 ml DAILY PRN GTB CONSTIPATION; Start at 11:30 Midodrine (Proamatine) 5 mg Q6 PRN GTB HYPOTENSION; Start 09/18/16 at 11:30 Multivitamins Therapeutic (Theragran) 1 tab DAILY GTB Last administered on 08:54; Admin Dose 1 TAB; Start 09/19/16 at 09:00 Sodium Biphosphate/ Sodium Phosphate (Fleet Enema Pediatric) 66.6 ml DAILY PRN [place] CONSTIPATION; Start 09/18/16 at 11:30 Ferrous Sulfate (Ferrous Sulfate (Ec)) 325 mg TID PO Last administered on 12:13; Admin Dose 325 MG; Start 09/18/16 at 14:00 Lactobacillus Acidophilus/ Rhamnosus (Culturelle) 1 cap BID PO Last administered on 09/19/16 08:53; Admin Dose 1 CAP; Start 09/18/16 at 21:00 Insulin Aspart (Novolog Insulin Pen) 5 unit TID SC Last administered on 12:19; Admin Dose 5 UNIT; Start 09/18/16 at 13:00 Insulin Detemir 18 unit 18 unit HS SC Last administered on 09/18/16 21:08; Admin Dose 18 UNIT; Start 09/18/16 at 21:00 Cefepime HCl (Maxipime 1gm/50 ml (Pmx)) 50 ml @ 100 mls/hr Q24H IVPB Last administered on 09/19/16 08:54; Admin Dose 100 MLS/HR; Start 09/19/16 at 09:00 Morphine Sulfate 2 mg 2 mg Q4H PRN IV PAIN LEVEL 7-10; Start 09/19/16 at 11:30 Dextrose (D5W) 1,000 ml @ 75 mls/hr [id number] IV Last administered on 09/19/16 13:06; Admin Dose 75 MLS/HR; Start 09/19/16 at 13:00 Lorazepam (Ativan) 1 mg Q6H PRN IV ANXIETY; Start 09/19/16 at 18:30 Assessment/Plan Additional Assessment/Plan IMP: 1. VDRF 2. HCAP 3. CHF 4. CMY 5. Encephalopathy RECS: 1. Vent support 2. BDs 3. Abx per ID GERSON THOMAS MD Sep 19, 2016 16:32
[2016-09-19] MEDS: INSULIN DETEMIR [LEVEMIR] 3ML CART SC SCH (21:01)
--- NOTE | 2016-09-19 22:18 | CONS ---
Date/Time of Note Date/Time of Note DATE: 09/19/16 TIME: 22:16 Assessment/Plan Assessment/Plan Chief Complaint/Hosp Course Assessment: Acute on chronic systolic heart failure Cardiomyopathy, LVEF 20-25% - unclear etiology, unclear if patient has ever had ischemic workup, possibly due to muscular dystrophy Acute kidney injury on chronic kidney disease Healthcare-associated pneumonia - on antibiotics Chronic ventilator-dependent respiratory failure Muscular dystrophy Paroxysmal atrial fibrillation and atrial flutter History of ventricular tachycardia (Torsades de pointes) - status post Bi-V ICD upgrade January 2015 ([employer]) Diabetes mellitus Anemia of chronic disease History of right lower extremity deep vein thrombosis Severe peripheral arterial disease - prior CT LE angio with evidence of NIB FINISHER SFA and severe disease of popliteal Recommendations: - echocardiogram showed LVEF 20-25%, RVSP 63 mmHg - continue Bumex 1mg BID - continue amiodarone 200mg daily - off beta-armando and JUAN inhibitor due to borderline blood pressures and renal failure, resume for systolic heart failure as able - consider restarting on chronic anticoagulation paroxysmal atrial fibrillation and history of deep vein thrombosis when clinically more stable Problems: Consultation Date/Type/Reason Admit Date/Time Sep 15, 2016 at 01:59 Initial Consult Date 09/18/16 Type of Consultation: Cardiology 24 HR Interval Summary Free Text/Dictation No acute events. Detailed Summary Additional Comments Unable to obtain review of systems, patient has tracheostomy. Exam/Review of Systems Vital Signs Vitals Vital Signs Date Time Temp Pulse Resp B/P Pulse Ox O2 Delivery O2 Flow Rate FiO2 09/19/16 20:37 60 09/19/16 19:48 18 100 35 09/19/16 19:42 97.9 95/52 Intake and Output 09/18/16 09/18/16 09/19/16 15:00 23:00 07:00 Intake Total 1085 ml 1220 ml Output Total 900 ml 750 ml Balance 185 ml 470 ml Exam Constitutional: No alert, No distress Psych: No nl mood/affect, No no complaints Head: atraumatic, normocephalic Eyes: nl conjunctiva, nl lids ENMT: nl external ears & nose, nl nasal mucosa & septum Neck: other (tracheostomy) Respiratory: crackles/rales, diminished breath sounds Cardiovascular: irregular rhythm Gastrointestinal: non-tender, soft Extremities: No clubbing, No cyanosis Neurological: No nl mental status, No nl speech Results Result Diagram: 09/19/16 0530 09/19/16 0530 Results 24 hrs Laboratory Tests Test 09/18/16 23:14 09/19/16 05:02 09/19/16 05:30 09/19/16 09:01 Bedside Glucose 186 157 205 White Blood Count 6.9 Red Blood Count 3.13 L Hemoglobin 8.9 L Hematocrit 31.0 L Mean Corpuscular Volume 99.0 Mean Corpuscular Hemoglobin 28.4 L Mean Corpuscular Hemoglobin Concent 28.7 L Red Cell Distribution Width 20.1 H Platelet Count 294 Mean Platelet Volume 10.9 H Neutrophils % 62.2 Lymphocytes % 13.4 L Monocytes % 7.9 Eosinophils % 14.9 H Basophils % 0.7 Nucleated Red Blood Cells % 0.0 Neutrophils # 4.3 Lymphocytes # 0.9 Monocytes # 0.6 Eosinophils # 1.0 H Basophils # 0.1 Nucleated Red Blood Cells # 0.0 Sodium Level 151 H Potassium Level 3.2 L Chloride Level 107 Carbon Dioxide Level 29 Anion Gap 18 H Blood Urea Nitrogen 96 H Creatinine 0.56 Glucose Level 160 Calcium Level 9.4 Phosphorus Level 4.6 Magnesium Level 2.3 Test 09/19/16 12:15 09/19/16 17:03 09/19/16 20:55 Bedside Glucose 174 161 164 Medications Medications Current Medications Ondansetron HCl (Zofran Inj) 4 mg Q6H PRN IV NAUSEA AND/OR VOMITING; Start 09/15 at 06:30 Acetaminophen (Tylenol Tab) 650 mg Q6H PRN PO PAIN LEVEL 1-3 OR FEVER Last administered on 09/16/16 20:10; Admin Dose 650 MG; Start 09/15/16 at 06:30 Acetaminophen (Tylenol Supp) 650 mg Q6H PRN ID PAIN LEVEL 1-3 OR FEVER; Start 09/15/16 at 06:30 Amiodarone HCl (Cordarone) 200 mg DAILY GTB Last administered on 09/19/16 08:53 ; Admin Dose 200 MG; Start 09/15/16 at 09:00 Bisacodyl (Dulcolax Supp) 10 mg Q24H PRN ID CONSTIPATION; Start 09/15/16 at 06: 30 Chlorhexidine Gluconate (Peridex) 15 ml BID MM Last administered on 09/19/16 20 :54; Admin Dose 15 ML; Start 09/15/16 at 09:00 Docusate Sodium (Colace) 200 mg QHS PRN PO CONSTIPATION; Start 09/15/16 at 06:30 Lisinopril (Zestril) 2.5 mg BID GTB Last administered on 09/15/16 09:24; Admin Dose 2.5 MG; Start 09/15/16 at 09:00; Status Future Hold Pantoprazole (Protonix Tab) 40 mg DAILY PO Last administered on 09/19/16 08:53 ; Admin Dose 40 MG; Start 09/15/16 at 09:00 Epoetin Kt (Epogen (Non Esrd/Non Oncology)) 3,000 units MoWeFr@17 SC Last administered on 09/18/16 17:48; Admin Dose 3,000 UNITS; Start 09/16/16 at 17:00 Epoetin Kt 2000 units 2,000 units MoWeFr@17 SC Last administered on 09/18/16 17:47; Admin Dose 2,000 UNITS; Start 09/16/16 at 17:00 Vancomycin HCl/ Sodium Chloride (Vancocin/NS) 250 ml @ 83.333 mls/ hr Q12H IVPB Last administered on 09/16/16 22:00; Admin Dose 83.333 MLS/HR; Start at 10:00; Status Future Hold Diphenhydramine HCl (Benadryl) 25 mg Q6H PRN IV ITCHING Last administered on 12:13; Admin Dose 25 MG; Start 09/15/16 at 21:00 Tramadol HCl (Ultram) 50 mg Q6H PRN GTB PAIN LEVEL 6-10; Start 09/17/16 at 12:00 Miscellaneous Information 1 ea NOTE XX ; Start 09/17/16 at 12:00 Insulin Aspart (Novolog Insulin Pen) NOVOLOG *MILD* ALGORI... Q6 SC Last administered on 09/19/16 17:12; Admin Dose 1 UNIT; Start 09/18/16 at 06:00 Miscellaneous Information 1 ea NOTE XX ; Start 09/17/16 at 22:45 Glucose (Glutose) 15 gm Q15M PRN PO DECREASED GLUCOSE; Start 09/17/16 at 22:45 Glucose (Glutose) 22.5 gm Q15M PRN PO DECREASED GLUCOSE; Start 09/17/16 at 22:45 Dextrose (D50w Syringe) 25 ml Q15M PRN IV DECREASED GLUCOSE; Start 09/17/16 at 22:45 Dextrose (D50w Syringe) 50 ml Q15M PRN IV DECREASED GLUCOSE; Start 09/17/16 at 22:45 Glucagon (Glucagen) 1 mg Q15M PRN IM DECREASED GLUCOSE; Start 09/17/16 at 22:45 Glucose (Glutose) 15 gm Q15M PRN BUCCAL DECREASED GLUCOSE; Start 09/17/16 at 22: 45 Acetaminophen (Tylenol Tab) 650 mg Q4 PRN GTB PAIN AND OR ELEVATED TEMP; Start 09/18/16 at 11:30 Albuterol (Proventil 0.083% (Neb)) 2.5 mg Q3H PRN NEB WHEEZING AND SOB; Start 09/18/16 at 11:30 Ascorbic Acid (Vitamin C) 500 mg BID PO Last administered on 09/19/16 20:54; Admin Dose 500 MG; Start 09/18/16 at 21:00 Folic Acid (Folic Acid) 1 mg DAILY GTB Last administered on 09/19/16 08:53; Admin Dose 1 MG; Start 09/19/16 at 09:00 Hydroxyzine HCl (Atarax) 25 mg Q8H PRN PO ITCHING; Start 09/18/16 at 11:30 Lorazepam (Ativan) 1 mg Q8 PRN GTB ANXIETY; Start 09/18/16 at 11:30 Magnesium Hydroxide (Milk Of Mag) 30 ml DAILY PRN GTB CONSTIPATION; Start at 11:30 Midodrine (Proamatine) 5 mg Q6 PRN GTB HYPOTENSION; Start 09/18/16 at 11:30 Multivitamins Therapeutic (Theragran) 1 tab DAILY GTB Last administered on 08:54; Admin Dose 1 TAB; Start 09/19/16 at 09:00 Sodium Biphosphate/ Sodium Phosphate (Fleet Enema Pediatric) 66.6 ml DAILY PRN ID CONSTIPATION; Start 09/18/16 at 11:30 Ferrous Sulfate (Ferrous Sulfate (Ec)) 325 mg TID PO Last administered on 20:53; Admin Dose 325 MG; Start 09/18/16 at 14:00 Lactobacillus Acidophilus/ Rhamnosus (Culturelle) 1 cap BID PO Last administered on 09/19/16 20:53; Admin Dose 1 CAP; Start 09/18/16 at 21:00 Insulin Aspart (Novolog Insulin Pen) 5 unit TID SC Last administered on 21:00; Admin Dose 5 UNIT; Start 09/18/16 at 13:00 Insulin Detemir 18 unit 18 unit HS SC Last administered on 09/19/16 21:01; Admin Dose 18 UNIT; Start 09/18/16 at 21:00 Cefepime HCl (Maxipime 1gm/50 ml (Pmx)) 50 ml @ 100 mls/hr Q24H IVPB Last administered on 09/19/16 08:54; Admin Dose 100 MLS/HR; Start 09/19/16 at 09:00 Morphine Sulfate 2 mg 2 mg Q4H PRN IV PAIN LEVEL 7-10; Start 09/19/16 at 11:30 Dextrose (D5W) 1,000 ml @ 75 mls/hr [id number] IV Last administered on 09/19/16 13:06; Admin Dose 75 MLS/HR; Start 09/19/16 at 13:00 Lorazepam (Ativan) 1 mg Q6H PRN IV ANXIETY; Start 09/19/16 at 18:30 ERICK GUTHRIE MD Sep 19, 2016 22:17
[2016-09-20] VITALS (23 sets, daily range): BP systolic 91–111; BP diastolic 51–61; PULSE 60–62; RESP 16–30
[2016-09-20] MEDS: INSULIN ASPART [NOVOLOG] 3 ML PEN SC SCH ×8 (00:32→21:56)
[2016-09-20] MEDS: traMADol 50 MG TAB GTB PRN ×3 (00:51→21:44)
[2016-09-20] MEDS: ALBUTEROL 18 GM INHALER INH SCH ×6 (01:38→21:13)
[2016-09-20] MEDS: DEXTROSE 5% 1,000 ML IV SCH ×2 (02:20→17:09)
[2016-09-20] MEDS: BUMETANIDE 1 MG TAB GTB SCH ×2 (05:29→17:46)
[2016-09-20 05:36] LABS: ABNORMAL IP MESSAGE 1; BASOPHIL # 0.1 10^3/ul (0.0-0.1); BASOPHILS % 0.6 % (0.0-2.0); EOSINOPHILS # 0.8 10^3/ul (0.0-0.5); EOSINOPHILS % 10.1 % (0.0-7.0); HEMATOCRIT 30.6 % (37.0-47.0); HEMOGLOBIN 8.8 g/dl (12.0-16.0); LYMPHOCYTES % 12.1 % (15.0-51.0); MEAN CORPUSCULAR HEMOGLOBIN 28.6 pg (29.0-33.0); MEAN CORPUSCULAR HGB CONC 28.8 g/dl (32.0-37.0); MEAN CORPUSCULAR VOLUME 99.4 fl (82.0-101.0); MEAN PLATELET VOLUME 10.3 fl (7.4-10.4); MONOCYTE # 0.7 10^3/ul (0.3-0.9); MONOCYTES % 8.2 % (0.0-11.0); NEUTROPHIL # 5.5 10^3/ul (1.6-7.5); PLATELET COUNT 288 10^3/UL (140-415); RED BLOOD COUNT 3.08 10^6/ul (4.20-5.40); RED CELL DISTRIBUTION WIDTH 19.9 % (11.5-14.5)
[2016-09-20 05:51] LABS: POSITIVE DIFF @See below
[2016-09-20 05:57] LABS: CALCIUM 9.1 mg/dl (8.4-10.2); CREATININE 0.56 mg/dl (0.44-1.00); POTASSIUM 3.1 mmol/L (3.5-5.1)
--- NOTE | 2016-09-20 07:22 | RADRPT ---
PROCEDURE: CT Abdomen and Pelvis without contrast. CLINICAL INDICATION: Abdominal distension TECHNIQUE: CT of the abdomen and pelvis was performed on a multi-detector scanner without IV contr ast. Coronal and sagittal images were reformatted from the axial data set. One or more of the foll owing dose reduction techniques were used: automated exposure control, adjustment of the mA and/or k V according to patient size, use of iterative reconstruction technique. CTDI = 23.25 mGy. DLP = 139 9.35 mGy-cm. COMPARISON: CT, 10/30/2015; ultrasound, 09/16/2016 FINDINGS: CT abdomen: There are mild to moderate bilateral pleural effusions. Bibasilar pulmonary scarring and bronchiect asis are noted. There is mild cardiomegaly, without pericardial effusion. Cholelithiasis is seen w ithout evidence for cholecystitis. Liver, biliary tree, pancreas and adrenal glands are unremarkabl e. Splenomegaly is noted measuring 16 cm. Bilateral nonobstructive renal calculi are noted, withou t ureterolithiasis or obstructive uropathy. Gastrostomy tube tip is within the stomach. The aorta is of normal caliber. There is no retroperitoneal lymphadenopathy. The margaux hepatis reg ion is clear. CT pelvis: Moderate to large amount of ascites is present. No bowel obstruction, free intraperitoneal air or a bscess is identified. Moderate amount of retained fecal material may indicate constipation. The ap pendix is well visualized and normal. There is no diverticulosis, diverticulitis or colitis. Matthew catheter balloon is within the urinary bladder. Uterus demonstrates a 5.8 cm fibroid. The endomet rium grossly appears thickened, measuring approximately 17 mm (602-78). No pelvic lymphadenopathy i s identified. Anasarca is noted. The surrounding osseous structures are remarkable for degenerative enthesopathy of the spine. No os teolytic or osteoblastic lesion is detected. IMPRESSION: 1. Moderate to large amount of ascites, increased from the prior CT. 2. Moderate retained fecal material may indicate constipation. There is no evidence of bowel obstr uction or perforation. 3. Stable mild cardiomegaly and mild to moderate bilateral pleural effusions. 4. Cholelithiasis, without evidence for cholecystitis. 5. Stable splenomegaly. 6. Small bilateral nonobstructive renal calculi, without ureterolithiasis or obstructive uropathy. 7. Gastrostomy tube and Matthew catheter are in place. 8. Endometrium appears thickened, a nonspecific finding in a perimenopausal patient. Consider ultr asound for further evaluation. Uterine fibroid is again noted, grossly unchanged. RPTAT: PP .Mode An MD, Date Time Electronically viewed and signed by .Mode An MD, MD on 09/20/2016 07:22 .R/
[2016-09-20 07:25] LABS: MAGNESIUM 2.2 mg/dl (1.7-2.5); PHOSPHORUS 4.2 mg/dl (2.5-4.9)
[2016-09-20] MEDS ORDERED: POTASSIUM CHLORIDE 250 ML IVPB ONE (07:30)
[2016-09-20] MEDS: CHLORHEXIDINE GLUCONATE 15 ML UD CUP MM SCH ×2 (08:34→21:44)
[2016-09-20] MEDS: FERROUS SULFATE (EC) 325 MG TAB PO SCH ×3 (08:34→21:44)
[2016-09-20] MEDS: MULTIVITAMINS THERAPEUTIC TAB GTB SCH (08:35)
[2016-09-20] MEDS: FOLIC ACID 1 MG TAB GTB SCH (08:35)
[2016-09-20] MEDS: ASCORBIC ACID 500 MG TAB PO SCH ×2 (08:35→21:44)
[2016-09-20] MEDS: PANTOPRAZOLE (EC) 40 MG TAB PO SCH (08:35)
[2016-09-20] MEDS: LACTOBACILLUS RHAMNOSUS CAP PO SCH ×2 (08:35→21:44)
[2016-09-20] MEDS: CEFEPIME 1GM/50 ML (PMX) 50 ML IVPB SCH (08:36)
[2016-09-20] MEDS: AMIODARONE 200 MG TAB GTB SCH (08:36)
--- NOTE | 2016-09-20 09:51 | PN ---
Date/Time of Note Date/Time of Note DATE: 09/20/16 TIME: 09:44 Assessment/Plan VTE Prophylaxis VTE Prophylaxis Intervention: SCD's Lines/Catheters IV Catheter Type (from [facility]): Peripheral IV Urinary Cath still in place: Yes Reason Cath still needed: urinary retention Assessment/Plan Chief Complaint/Hosp Course Assessment and plan: 50-year-old female with past medical history of quadriplegia, muscular dystrophy, trach/vent dependent respiratory failure, anemia, ascites, dysphagia status post PEG tube feeding, hypertension, anxiety, diabetes mellitus, GERD, cardiomyopathy with EF of 30% to 35%, AICD who was sent from rehab facility for hypoxia and AMS, likely secondary to pneumonia. 1. Healthcare associated pneumonia:- Patient for hypoxemia most likely secondary to a pneumonia, which also appears to be multifocal pneumonia. Slowly improving. -Continue antibiotics. -Follow-up culture. Consider ID consult if does not improve 2. Chronic Trach/vent dependent respiratory failure - Continue trach support. Follow-up pulmonary recommendation 3. Cardiomyopathy with EF of 30% to 35%, AICD -appreciate cardiology consult, continue current cardiac medications including Bumex and amiodarone. 4. Hyperkalemia-resolved, follow-up renal REC'S. 5. Altered mentation- improved, monitor for now. 6. Dysphagia s/p PEG tube-again, G-tube was evaluated by GI team 2 days. Patient with some abdominal distention now, CT abdomen pelvis demonstrated large fecal material in the colon as well as large amount of ascites -continue tube feeds as tolerated. -We will order for paracentesis and send fluids for studies. Looking back at records, patient has a prior history of ascites and prior paracentesis, but no history of cirrhosis so unclear why patient continues to have recurrent ascites, possibly secondary to patient's cardiomyopathy? 7. Diabetes - A1c = 5.2. Sugar stable presently - continue sliding scale insulin, Levemir, aspart TID 8. History of ascites, requiring paracentesis-monitor abdomen. 9. Azotemia-slightly improved, but still very elevated BUN but slowly trending down. On Bumex p.o. twice daily - Follow-up renal recommendations. 10. History of hypertension-continue current meds 11. History of quadriplegia secondary to muscular dystrophy -monitor 12. Anemia: Hemoglobin presently stable -Monitor for now 13. Hypernatremia: Sodium slightly improved since yesterday (151 ->149) -For now Free water, follow-up renal recommendations, and low rate of D5W IV fluids for another 24 hours - check BMP in the morning. Problems: Subjective 24 Hr Interval Summary Free Text/Dictation Patient a bit more alert, self suctioning herself. Per nursing staff had large bowel movement last night. Exam/Review of Systems Vital Signs Vitals Vital Signs Date Time Temp Pulse Resp B/P Pulse Ox O2 Delivery O2 Flow Rate FiO2 09/20/16 09:28 64 20 99 35 09/20/16 07:26 97.8 94/51 Intake and Output 09/19/16 09/19/16 09/20/16 15:00 23:00 07:00 Intake Total 1800 ml 700 ml Output Total 1600 ml 850 ml Balance 200 ml -150 ml Exam Constitutional: Lying in bed, no acute distress Head: atraumatic, normocephalic Neck: other (Trach tube in place) Respiratory: Slightly diminished breath sounds Cardiovascular: nl pulses, regular rate and rhythm Gastrointestinal: other (PEG tube in place), still somewhat distended, slightly firm Extremities: edema Results Result Diagram: 09/20/16 0458 09/20/16 0458 Results 24 hrs Laboratory Tests Test 09/19/16 12:15 09/19/16 17:03 09/19/16 20:55 09/20/16 00:28 Bedside Glucose 174 161 164 154 Test 09/20/16 04:58 09/20/16 05:28 09/20/16 08:38 White Blood Count 8.0 Red Blood Count 3.08 L Hemoglobin 8.8 L Hematocrit 30.6 L Mean Corpuscular Volume 99.4 Mean Corpuscular Hemoglobin 28.6 L Mean Corpuscular Hemoglobin Concent 28.8 L Red Cell Distribution Width 19.9 H Platelet Count 288 Mean Platelet Volume 10.3 Neutrophils % 68.0 Lymphocytes % 12.1 L Monocytes % 8.2 Eosinophils % 10.1 H Basophils % 0.6 Nucleated Red Blood Cells % 0.0 Neutrophils # 5.5 Lymphocytes # 1.0 Monocytes # 0.7 Eosinophils # 0.8 H Basophils # 0.1 Nucleated Red Blood Cells # 0.0 Sodium Level 149 H Potassium Level 3.1 L Chloride Level 109 Carbon Dioxide Level 26 Anion Gap 17 H Blood Urea Nitrogen 88 H Creatinine 0.56 Glucose Level 189 Calcium Level 9.1 Phosphorus Level 4.2 Magnesium Level 2.2 Bedside Glucose 203 195 Medications Medications Current Medications Ondansetron HCl (Zofran Inj) 4 mg Q6H PRN IV NAUSEA AND/OR VOMITING; Start 09/15 at 06:30 Acetaminophen (Tylenol Tab) 650 mg Q6H PRN PO PAIN LEVEL 1-3 OR FEVER Last administered on 09/16/16 20:10; Admin Dose 650 MG; Start 09/15/16 at 06:30 Acetaminophen (Tylenol Supp) 650 mg Q6H PRN SC PAIN LEVEL 1-3 OR FEVER; Start 09/15/16 at 06:30 Amiodarone HCl (Cordarone) 200 mg DAILY GTB Last administered on 09/20/16 08:36 ; Admin Dose 200 MG; Start 09/15/16 at 09:00 Bisacodyl (Dulcolax Supp) 10 mg Q24H PRN SC CONSTIPATION; Start 09/15/16 at 06: 30 Chlorhexidine Gluconate (Peridex) 15 ml BID MM Last administered on 09/20/16 08 :34; Admin Dose 15 ML; Start 09/15/16 at 09:00 Docusate Sodium (Colace) 200 mg QHS PRN PO CONSTIPATION; Start 09/15/16 at 06:30 Lisinopril (Zestril) 2.5 mg BID GTB Last administered on 09/15/16 09:24; Admin Dose 2.5 MG; Start 09/15/16 at 09:00; Status Future Hold Pantoprazole (Protonix Tab) 40 mg DAILY PO Last administered on 09/20/16 08:35 ; Admin Dose 40 MG; Start 09/15/16 at 09:00 Epoetin Kt (Epogen (Non Esrd/Non Oncology)) 3,000 units MoWeFr@17 SC Last administered on 09/18/16 17:48; Admin Dose 3,000 UNITS; Start 09/16/16 at 17:00 Epoetin Kt 2000 units 2,000 units MoWeFr@17 SC Last administered on 09/18/16 17:47; Admin Dose 2,000 UNITS; Start 09/16/16 at 17:00 Vancomycin HCl/ Sodium Chloride (Vancocin/NS) 250 ml @ 83.333 mls/ hr Q12H IVPB Last administered on 09/16/16 22:00; Admin Dose 83.333 MLS/HR; Start at 10:00; Status Future Hold Diphenhydramine HCl (Benadryl) 25 mg Q6H PRN IV ITCHING Last administered on 12:13; Admin Dose 25 MG; Start 09/15/16 at 21:00 Tramadol HCl (Ultram) 50 mg Q6H PRN GTB PAIN LEVEL 6-10 Last administered on 00:51; Admin Dose 50 MG; Start 09/17/16 at 12:00 Miscellaneous Information 1 ea NOTE XX ; Start 09/17/16 at 12:00 Insulin Aspart (Novolog Insulin Pen) NOVOLOG *MILD* ALGORI... Q6 SC Last administered on 09/20/16 05:34; Admin Dose 2 UNIT; Start 09/18/16 at 06:00 Miscellaneous Information 1 ea NOTE XX ; Start 09/17/16 at 22:45 Glucose (Glutose) 15 gm Q15M PRN PO DECREASED GLUCOSE; Start 09/17/16 at 22:45 Glucose (Glutose) 22.5 gm Q15M PRN PO DECREASED GLUCOSE; Start 09/17/16 at 22:45 Dextrose (D50w Syringe) 25 ml Q15M PRN IV DECREASED GLUCOSE; Start 09/17/16 at 22:45 Dextrose (D50w Syringe) 50 ml Q15M PRN IV DECREASED GLUCOSE; Start 09/17/16 at 22:45 Glucagon (Glucagen) 1 mg Q15M PRN IM DECREASED GLUCOSE; Start 09/17/16 at 22:45 Glucose (Glutose) 15 gm Q15M PRN BUCCAL DECREASED GLUCOSE; Start 09/17/16 at 22: 45 Acetaminophen (Tylenol Tab) 650 mg Q4 PRN GTB PAIN AND OR ELEVATED TEMP; Start 09/18/16 at 11:30 Albuterol (Proventil 0.083% (Neb)) 2.5 mg Q3H PRN NEB WHEEZING AND SOB; Start 09/18/16 at 11:30 Ascorbic Acid (Vitamin C) 500 mg BID PO Last administered on 09/20/16 08:35; Admin Dose 500 MG; Start 09/18/16 at 21:00 Folic Acid (Folic Acid) 1 mg DAILY GTB Last administered on 09/20/16 08:35; Admin Dose 1 MG; Start 09/19/16 at 09:00 Hydroxyzine HCl (Atarax) 25 mg Q8H PRN PO ITCHING; Start 09/18/16 at 11:30 Lorazepam (Ativan) 1 mg Q8 PRN GTB ANXIETY; Start 09/18/16 at 11:30 Magnesium Hydroxide (Milk Of Mag) 30 ml DAILY PRN GTB CONSTIPATION; Start at 11:30 Midodrine (Proamatine) 5 mg Q6 PRN GTB HYPOTENSION; Start 09/18/16 at 11:30 Multivitamins Therapeutic (Theragran) 1 tab DAILY GTB Last administered on 08:35; Admin Dose 1 TAB; Start 09/19/16 at 09:00 Sodium Biphosphate/ Sodium Phosphate (Fleet Enema Pediatric) 66.6 ml DAILY PRN SC CONSTIPATION; Start 09/18/16 at 11:30 Ferrous Sulfate (Ferrous Sulfate (Ec)) 325 mg TID PO Last administered on 08:34; Admin Dose 325 MG; Start 09/18/16 at 14:00 Lactobacillus Acidophilus/ Rhamnosus (Culturelle) 1 cap BID PO Last administered on 09/20/16 08:35; Admin Dose 1 CAP; Start 09/18/16 at 21:00 Insulin Aspart (Novolog Insulin Pen) 5 unit TID SC Last administered on 08:48; Admin Dose 5 UNIT; Start 09/18/16 at 13:00 Insulin Detemir 18 unit 18 unit HS SC Last administered on 09/19/16 21:01; Admin Dose 18 UNIT; Start 09/18/16 at 21:00 Cefepime HCl (Maxipime 1gm/50 ml (Pmx)) 50 ml @ 100 mls/hr Q24H IVPB Last administered on 09/20/16 08:36; Admin Dose 100 MLS/HR; Start 09/19/16 at 09:00 Morphine Sulfate 2 mg 2 mg Q4H PRN IV PAIN LEVEL 7-10; Start 09/19/16 at 11:30 Dextrose (D5W) 1,000 ml @ 60 mls/hr [id number] IV Last administered on 09/19/16 13:06; Admin Dose 75 MLS/HR; Start 09/19/16 at 13:00; Stop 09/21/16 at 09:00 Lorazepam 1 mg 1 mg Q6H PRN IV ANXIETY; Start 09/19/16 at 18:30 Potassium Chloride (KCl 40 MEQ/250 ML NS) 250 ml @ 62.5 mls/hr ONCE ONCE IVPB Last administered on 09/20/16 08:49; Admin Dose 62.5 MLS/HR; Start 09/20/16 at 07:30; Stop 09/20/16 at 11:29 Sodium Biphosphate/ Sodium Phosphate (Fleet Enema) 133 ml ONCE ONCE SC ; Start 09/20/16 at 10:00; Stop 09/20/16 at 10:01 FROY LEIJA Sep 20, 2016 09:51
[2016-09-20] MEDS ORDERED: NA PHOSPHATE/BIPHOS 133 ML ENEMA PR ONE (10:00)
[2016-09-20] MEDS ORDERED: ALBUMIN HUMAN 5% 250 ML IV ONE (11:00)
--- NOTE | 2016-09-20 12:50 | CONS ---
Date/Time of Note Date/Time of Note DATE: 09/20/16 TIME: 12:49 Assessment/Plan Assessment/Plan Chief Complaint/Hosp Course 1. Nonoliguric acute kidney injury on top of chronic kidney disease with a baseline creatinine of 0.6 mg/dL. -Etiology likely secondary to hemodynamics. - Renal function appears stable. - At this point, continue to monitor. Continue supportive care. Renally dose medications. Avoid nephrotoxins. 2. Hypokalemia. We will replete with potassium chloride. 3. Hypernatremia. The patient has a free water deficit of 2.5 L. We will increase free water flushes 200 mL q.4 hours. 4. Mineral bone disorder. Continue to monitor calcium and phosphorus levels. 5. Anemia. Monitor H and H levels. 6. Sepsis secondary to healthcare-associated pneumonia. Continue current antibiotic regimen. 7. Ventilatory-dependent respiratory failure. Vent settings have been reviewed. ABGs have been reviewed. Continue to monitor. Follow up with Pulmonary. 8. History of cardiomyopathy. Continue medical management. 9. Status post percutaneous endoscopic gastrostomy. Continue tube feeding. 10. Quadriplegia secondary to muscular dystrophy. 11. Hypertension. Continue current medical management. 12. History of cardiomyopathy. Continue current medical management. Continue low-dose diuretic therapy. Follow up with Cardiology. 13. History of ascites. 14. Imord-rb-rnhhaqi congestive heart failure. Continue current treatment plan as stated above. Problems: Consultation Date/Type/Reason Admit Date/Time Sep 15, 2016 at 01:59 Initial Consult Date 09/18/16 Type of Consultation: Cardiology Reason for Consultation all noted pt. seen and examined Na better good uop Exam/Review of Systems Vital Signs Vitals Vital Signs Date Time Temp Pulse Resp B/P Pulse Ox O2 Delivery O2 Flow Rate FiO2 09/20/16 11:27 60 18 96 35 09/20/16 11:06 97.8 105/57 Intake and Output 09/19/16 09/19/16 09/20/16 15:00 23:00 07:00 Intake Total 1800 ml 700 ml Output Total 1600 ml 850 ml Balance 200 ml -150 ml Exam Psych: confusion Eyes: EOMI, PERRL, nl conjunctiva, nl lids, nl sclera ENMT: nl external ears & nose, nl lips & teeth, nl nasal mucosa & septum Results Result Diagram: 09/20/16 0458 09/20/16 0458 Results 24 hrs Laboratory Tests Test 09/19/16 17:03 09/19/16 20:55 09/20/16 00:28 09/20/16 04:58 Bedside Glucose 161 164 154 White Blood Count 8.0 Red Blood Count 3.08 L Hemoglobin 8.8 L Hematocrit 30.6 L Mean Corpuscular Volume 99.4 Mean Corpuscular Hemoglobin 28.6 L Mean Corpuscular Hemoglobin Concent 28.8 L Red Cell Distribution Width 19.9 H Platelet Count 288 Mean Platelet Volume 10.3 Neutrophils % 68.0 Lymphocytes % 12.1 L Monocytes % 8.2 Eosinophils % 10.1 H Basophils % 0.6 Nucleated Red Blood Cells % 0.0 Neutrophils # 5.5 Lymphocytes # 1.0 Monocytes # 0.7 Eosinophils # 0.8 H Basophils # 0.1 Nucleated Red Blood Cells # 0.0 Sodium Level 149 H Potassium Level 3.1 L Chloride Level 109 Carbon Dioxide Level 26 Anion Gap 17 H Blood Urea Nitrogen 88 H Creatinine 0.56 Glucose Level 189 Calcium Level 9.1 Phosphorus Level 4.2 Magnesium Level 2.2 Test 09/20/16 05:28 09/20/16 08:38 09/20/16 11:35 09/20/16 12:08 Bedside Glucose 203 195 169 Ammonia 80 #H Medications Medications Current Medications Ondansetron HCl (Zofran Inj) 4 mg Q6H PRN IV NAUSEA AND/OR VOMITING; Start 09/15 at 06:30 Acetaminophen (Tylenol Tab) 650 mg Q6H PRN PO PAIN LEVEL 1-3 OR FEVER Last administered on 09/16/16 20:10; Admin Dose 650 MG; Start 09/15/16 at 06:30 Acetaminophen (Tylenol Supp) 650 mg Q6H PRN ME PAIN LEVEL 1-3 OR FEVER; Start 09/15/16 at 06:30 Amiodarone HCl (Cordarone) 200 mg DAILY GTB Last administered on 09/20/16 08:36 ; Admin Dose 200 MG; Start 09/15/16 at 09:00 Bisacodyl (Dulcolax Supp) 10 mg Q24H PRN ME CONSTIPATION; Start 09/15/16 at 06: 30 Chlorhexidine Gluconate (Peridex) 15 ml BID MM Last administered on 09/20/16 08 :34; Admin Dose 15 ML; Start 09/15/16 at 09:00 Docusate Sodium (Colace) 200 mg QHS PRN PO CONSTIPATION; Start 09/15/16 at 06:30 Lisinopril (Zestril) 2.5 mg BID GTB Last administered on 09/15/16 09:24; Admin Dose 2.5 MG; Start 09/15/16 at 09:00; Status Future Hold Pantoprazole (Protonix Tab) 40 mg DAILY PO Last administered on 09/20/16 08:35 ; Admin Dose 40 MG; Start 09/15/16 at 09:00 Epoetin Kt (Epogen (Non Esrd/Non Oncology)) 3,000 units MoWeFr@17 SC Last administered on 09/18/16 17:48; Admin Dose 3,000 UNITS; Start 09/16/16 at 17:00 Epoetin Kt 2000 units 2,000 units MoWeFr@17 SC Last administered on 09/18/16 17:47; Admin Dose 2,000 UNITS; Start 09/16/16 at 17:00 Vancomycin HCl/ Sodium Chloride (Vancocin/NS) 250 ml @ 83.333 mls/ hr Q12H IVPB Last administered on 09/16/16 22:00; Admin Dose 83.333 MLS/HR; Start at 10:00; Status Future Hold Diphenhydramine HCl (Benadryl) 25 mg Q6H PRN IV ITCHING Last administered on 12:13; Admin Dose 25 MG; Start 09/15/16 at 21:00 Tramadol HCl (Ultram) 50 mg Q6H PRN GTB PAIN LEVEL 6-10 Last administered on 00:51; Admin Dose 50 MG; Start 09/17/16 at 12:00 Miscellaneous Information 1 ea NOTE XX ; Start 09/17/16 at 12:00 Insulin Aspart (Novolog Insulin Pen) NOVOLOG *MILD* ALGORI... Q6 SC Last administered on 09/20/16 12:20; Admin Dose 1 UNIT; Start 09/18/16 at 06:00 Miscellaneous Information 1 ea NOTE XX ; Start 09/17/16 at 22:45 Glucose (Glutose) 15 gm Q15M PRN PO DECREASED GLUCOSE; Start 09/17/16 at 22:45 Glucose (Glutose) 22.5 gm Q15M PRN PO DECREASED GLUCOSE; Start 09/17/16 at 22:45 Dextrose (D50w Syringe) 25 ml Q15M PRN IV DECREASED GLUCOSE; Start 09/17/16 at 22:45 Dextrose (D50w Syringe) 50 ml Q15M PRN IV DECREASED GLUCOSE; Start 09/17/16 at 22:45 Glucagon (Glucagen) 1 mg Q15M PRN IM DECREASED GLUCOSE; Start 09/17/16 at 22:45 Glucose (Glutose) 15 gm Q15M PRN BUCCAL DECREASED GLUCOSE; Start 09/17/16 at 22: 45 Acetaminophen (Tylenol Tab) 650 mg Q4 PRN GTB PAIN AND OR ELEVATED TEMP; Start 09/18/16 at 11:30 Albuterol (Proventil 0.083% (Neb)) 2.5 mg Q3H PRN NEB WHEEZING AND SOB; Start 09/18/16 at 11:30 Ascorbic Acid (Vitamin C) 500 mg BID PO Last administered on 09/20/16 08:35; Admin Dose 500 MG; Start 09/18/16 at 21:00 Folic Acid (Folic Acid) 1 mg DAILY GTB Last administered on 09/20/16 08:35; Admin Dose 1 MG; Start 09/19/16 at 09:00 Hydroxyzine HCl (Atarax) 25 mg Q8H PRN PO ITCHING; Start 09/18/16 at 11:30 Lorazepam (Ativan) 1 mg Q8 PRN GTB ANXIETY; Start 09/18/16 at 11:30 Magnesium Hydroxide (Milk Of Mag) 30 ml DAILY PRN GTB CONSTIPATION; Start at 11:30 Midodrine (Proamatine) 5 mg Q6 PRN GTB HYPOTENSION; Start 09/18/16 at 11:30 Multivitamins Therapeutic (Theragran) 1 tab DAILY GTB Last administered on 08:35; Admin Dose 1 TAB; Start 09/19/16 at 09:00 Sodium Biphosphate/ Sodium Phosphate (Fleet Enema Pediatric) 66.6 ml DAILY PRN ME CONSTIPATION; Start 09/18/16 at 11:30 Ferrous Sulfate (Ferrous Sulfate (Ec)) 325 mg TID PO Last administered on 12:09; Admin Dose 325 MG; Start 09/18/16 at 14:00 Lactobacillus Acidophilus/ Rhamnosus (Culturelle) 1 cap BID PO Last administered on 09/20/16 08:35; Admin Dose 1 CAP; Start 09/18/16 at 21:00 Insulin Aspart (Novolog Insulin Pen) 5 unit TID SC Last administered on 12:20; Admin Dose 5 UNIT; Start 09/18/16 at 13:00 Insulin Detemir 18 unit 18 unit HS SC Last administered on 09/19/16 21:01; Admin Dose 18 UNIT; Start 09/18/16 at 21:00 Cefepime HCl (Maxipime 1gm/50 ml (Pmx)) 50 ml @ 100 mls/hr Q24H IVPB Last administered on 09/20/16 08:36; Admin Dose 100 MLS/HR; Start 09/19/16 at 09:00 Morphine Sulfate 2 mg 2 mg Q4H PRN IV PAIN LEVEL 7-10; Start 09/19/16 at 11:30 Dextrose (D5W) 1,000 ml @ 60 mls/hr [id number] Last administered on 09/19/16 13:06; Admin Dose 75 MLS/HR; Start 09/19/16 at 13:00; Stop 09/21/16 at 09:00 Lorazepam (Ativan) 1 mg Q6H PRN IV ANXIETY; Start 09/19/16 at 18:30 ALINA SANTIAGO MD Sep 20, 2016 12:50
[2016-09-20] MEDS: LACTULOSE 30ML CUP PO SCH ×3 (13:42→23:30)
[2016-09-20] MEDS ORDERED: LIDOCAINE 1% (MPF) 5 ML VIAL ONE (17:28)
--- NOTE | 2016-09-20 17:45 | CONS ---
Date/Time of Note Date/Time of Note DATE: 09/20/16 TIME: 17:44 Consult Date/Type/Reason Admit Date/Time Sep 15, 2016 at 01:59 Initial Consult Date 09/18/16 Type of Consultation: Pulm Subjective No events on MV Objective Vital Signs Date Time Temp Pulse Resp B/P Pulse Ox O2 Delivery O2 Flow Rate FiO2 09/20/16 17:23 60 09/20/16 15:26 18 93 35 09/20/16 15:15 98.4 106/61 Intake and Output 09/19/16 09/19/16 09/20/16 15:00 23:00 07:00 Intake Total 1800 ml 700 ml Output Total 1600 ml 850 ml Balance 200 ml -150 ml Exam HEENT: Neck supple; no JVD; no LAD CVS: RRR, S1 and S2 CHEST: Coarse rhonchi b/l ABD: Soft, NT, + BS EXT: No c/c/e Results/Medications Result Diagram: 09/20/16 0458 09/20/16 0458 Results 24 hrs Laboratory Tests Test 09/19/16 20:55 09/20/16 00:28 09/20/16 04:58 09/20/16 05:28 Bedside Glucose 164 154 203 White Blood Count 8.0 Red Blood Count 3.08 L Hemoglobin 8.8 L Hematocrit 30.6 L Mean Corpuscular Volume 99.4 Mean Corpuscular Hemoglobin 28.6 L Mean Corpuscular Hemoglobin Concent 28.8 L Red Cell Distribution Width 19.9 H Platelet Count 288 Mean Platelet Volume 10.3 Neutrophils % 68.0 Lymphocytes % 12.1 L Monocytes % 8.2 Eosinophils % 10.1 H Basophils % 0.6 Nucleated Red Blood Cells % 0.0 Neutrophils # 5.5 Lymphocytes # 1.0 Monocytes # 0.7 Eosinophils # 0.8 H Basophils # 0.1 Nucleated Red Blood Cells # 0.0 Sodium Level 149 H Potassium Level 3.1 L Chloride Level 109 Carbon Dioxide Level 26 Anion Gap 17 H Blood Urea Nitrogen 88 H Creatinine 0.56 Glucose Level 189 Calcium Level 9.1 Phosphorus Level 4.2 Magnesium Level 2.2 Test 09/20/16 08:38 09/20/16 11:35 09/20/16 12:08 Bedside Glucose 195 169 Ammonia 80 #H Medications Current Medications Ondansetron HCl (Zofran Inj) 4 mg Q6H PRN IV NAUSEA AND/OR VOMITING; Start 09/15 at 06:30 Acetaminophen (Tylenol Tab) 650 mg Q6H PRN PO PAIN LEVEL 1-3 OR FEVER Last administered on 09/16/16 20:10; Admin Dose 650 MG; Start 09/15/16 at 06:30 Acetaminophen (Tylenol Supp) 650 mg Q6H PRN NE PAIN LEVEL 1-3 OR FEVER; Start 09/15/16 at 06:30 Amiodarone HCl (Cordarone) 200 mg DAILY GTB Last administered on 09/20/16 08:36 ; Admin Dose 200 MG; Start 09/15/16 at 09:00 Bisacodyl (Dulcolax Supp) 10 mg Q24H PRN NE CONSTIPATION; Start 09/15/16 at 06: 30 Chlorhexidine Gluconate (Peridex) 15 ml BID MM Last administered on 09/20/16 08 :34; Admin Dose 15 ML; Start 09/15/16 at 09:00 Docusate Sodium (Colace) 200 mg QHS PRN PO CONSTIPATION; Start 09/15/16 at 06:30 Lisinopril (Zestril) 2.5 mg BID GTB Last administered on 09/15/16 09:24; Admin Dose 2.5 MG; Start 09/15/16 at 09:00; Status Future Hold Pantoprazole (Protonix Tab) 40 mg DAILY PO Last administered on 09/20/16 08:35 ; Admin Dose 40 MG; Start 09/15/16 at 09:00 Epoetin Kt (Epogen (Non Esrd/Non Oncology)) 3,000 units MoWeFr@17 SC Last administered on 09/18/16 17:48; Admin Dose 3,000 UNITS; Start 09/16/16 at 17:00 Epoetin Kt 2000 units 2,000 units MoWeFr@17 SC Last administered on 09/18/16 17:47; Admin Dose 2,000 UNITS; Start 09/16/16 at 17:00 Vancomycin HCl/ Sodium Chloride (Vancocin/NS) 250 ml @ 83.333 mls/ hr Q12H IVPB Last administered on 09/16/16 22:00; Admin Dose 83.333 MLS/HR; Start at 10:00; Status Future Hold Diphenhydramine HCl (Benadryl) 25 mg Q6H PRN IV ITCHING Last administered on 12:13; Admin Dose 25 MG; Start 09/15/16 at 21:00 Tramadol HCl (Ultram) 50 mg Q6H PRN GTB PAIN LEVEL 6-10 Last administered on 14:32; Admin Dose 50 MG; Start 09/17/16 at 12:00 Miscellaneous Information 1 ea NOTE XX ; Start 09/17/16 at 12:00 Insulin Aspart (Novolog Insulin Pen) NOVOLOG *MILD* ALGORI... Q6 SC Last administered on 09/20/16 12:20; Admin Dose 1 UNIT; Start 09/18/16 at 06:00 Miscellaneous Information 1 ea NOTE XX ; Start 09/17/16 at 22:45 Glucose (Glutose) 15 gm Q15M PRN PO DECREASED GLUCOSE; Start 09/17/16 at 22:45 Glucose (Glutose) 22.5 gm Q15M PRN PO DECREASED GLUCOSE; Start 09/17/16 at 22:45 Dextrose (D50w Syringe) 25 ml Q15M PRN IV DECREASED GLUCOSE; Start 09/17/16 at 22:45 Dextrose (D50w Syringe) 50 ml Q15M PRN IV DECREASED GLUCOSE; Start 09/17/16 at 22:45 Glucagon (Glucagen) 1 mg Q15M PRN IM DECREASED GLUCOSE; Start 09/17/16 at 22:45 Glucose (Glutose) 15 gm Q15M PRN BUCCAL DECREASED GLUCOSE; Start 09/17/16 at 22: 45 Acetaminophen (Tylenol Tab) 650 mg Q4 PRN GTB PAIN AND OR ELEVATED TEMP; Start 09/18/16 at 11:30 Albuterol (Proventil 0.083% (Neb)) 2.5 mg Q3H PRN NEB WHEEZING AND SOB; Start 09/18/16 at 11:30 Ascorbic Acid (Vitamin C) 500 mg BID PO Last administered on 09/20/16 08:35; Admin Dose 500 MG; Start 09/18/16 at 21:00 Folic Acid (Folic Acid) 1 mg DAILY GTB Last administered on 09/20/16 08:35; Admin Dose 1 MG; Start 09/19/16 at 09:00 Hydroxyzine HCl (Atarax) 25 mg Q8H PRN PO ITCHING; Start 09/18/16 at 11:30 Lorazepam (Ativan) 1 mg Q8 PRN GTB ANXIETY; Start 09/18/16 at 11:30 Magnesium Hydroxide (Milk Of Mag) 30 ml DAILY PRN GTB CONSTIPATION; Start at 11:30 Midodrine (Proamatine) 5 mg Q6 PRN GTB HYPOTENSION; Start 09/18/16 at 11:30 Multivitamins Therapeutic (Theragran) 1 tab DAILY GTB Last administered on 08:35; Admin Dose 1 TAB; Start 09/19/16 at 09:00 Sodium Biphosphate/ Sodium Phosphate (Fleet Enema Pediatric) 66.6 ml DAILY PRN NE CONSTIPATION; Start 09/18/16 at 11:30 Ferrous Sulfate (Ferrous Sulfate (Ec)) 325 mg TID PO Last administered on 12:09; Admin Dose 325 MG; Start 09/18/16 at 14:00 Lactobacillus Acidophilus/ Rhamnosus (Culturelle) 1 cap BID PO Last administered on 09/20/16 08:35; Admin Dose 1 CAP; Start 09/18/16 at 21:00 Insulin Aspart (Novolog Insulin Pen) 5 unit TID SC Last administered on 12:20; Admin Dose 5 UNIT; Start 09/18/16 at 13:00 Insulin Detemir 18 unit 18 unit HS SC Last administered on 09/19/16 21:01; Admin Dose 18 UNIT; Start 09/18/16 at 21:00 Cefepime HCl (Maxipime 1gm/50 ml (Pmx)) 50 ml @ 100 mls/hr Q24H IVPB Last administered on 09/20/16 08:36; Admin Dose 100 MLS/HR; Start 09/19/16 at 09:00 Morphine Sulfate 2 mg 2 mg Q4H PRN IV PAIN LEVEL 7-10; Start 09/19/16 at 11:30 Dextrose (D5W) 1,000 ml @ 60 mls/hr [id number] Last administered on 09/19/16 13:06; Admin Dose 75 MLS/HR; Start 09/19/16 at 13:00; Stop 09/21/16 at 09:00 Lorazepam (Ativan) 1 mg Q6H PRN IV ANXIETY; Start 09/19/16 at 18:30 Lactulose (Enulose) 20 gm Q6 PO Last administered on 09/20/16t 13:42; Admin Dose 20 GM; Start 09/20/16 at 13:30 Miscellaneous Information (*Rx Drug Level Order Reminder*) VANCO RANDOM W/ AM LABS... ONCE ONCE XX ; Start 09/21/16 at 05:00; Stop 09/21/16 at 05:01 Assessment/Plan Additional Assessment/Plan IMP: 1. VDRF 2. HCAP 3. CHF 4. CMY 5. Encephalopathy RECS: 1. Vent support 2. BDs/CPT 3. Abx per ID GERSON THOMAS MD Sep 20, 2016 17:45
[2016-09-20 18:19] LABS: FLUID GLUCOSE 167 mg/dl; FLUID TYPE ASCITES FLUID
[2016-09-20 18:20] LABS: FLUID AMYLASE < 30 U/L; FLUID LD 242 U/L; FLUID TOTAL PROTEIN 3.8 g/dl; FLUID TYPE ASCITES FLUID; FLUID TYPE ASCITIES FLUID
[2016-09-20 19:02] LABS: FLD MN% 56.1 %; FLD PMN% 43.9 %; FLD RBC 0 /uL; FLD WBC 98 /cmm
[2016-09-20 19:07] LABS: FLD CLARITY SLIGHTLY HAZY; FLD COLOR YELLOW; FLD TYPE ASCITES
[2016-09-20] MEDS: INSULIN DETEMIR [LEVEMIR] 3ML CART SC SCH (21:56)
[2016-09-20] MEDS: ONDANSETRON 4 MG INJ IV PRN (23:29)
[2016-09-20] MEDS: morphine 2 MG INJ IV PRN (23:37)
[2016-09-21] VITALS (30 sets, daily range): BP systolic 74–101; BP diastolic 41–56; PULSE 59–62; RESP 15–20
[2016-09-21] MEDS: DIPHENHYDRAMINE 50 MG INJ IV PRN ×2 (01:00→17:50)
[2016-09-21] MEDS: INSULIN ASPART [NOVOLOG] 3 ML PEN SC SCH ×7 (01:05→21:42)
[2016-09-21] MEDS: ALBUTEROL 18 GM INHALER INH SCH ×6 (01:20→21:03)
[2016-09-21] MEDS: DEXTROSE 5% 1,000 ML IV SCH (02:16)
[2016-09-21] MEDS: LORAZEPAM 2 MG INJ IV PRN (03:19)
[2016-09-21] MEDS: morphine 2 MG INJ IV PRN ×2 (03:19→08:55)
[2016-09-21] MEDS ORDERED: SOD CHLORIDE 0.9% 500 ML IV ONE ×3 (04:30→23:00)
[2016-09-21 05:54] LABS: ABNORMAL IP MESSAGE 1; BASOPHILS % 0.4 % (0.0-2.0); EOSINOPHILS # 0.8 10^3/ul (0.0-0.5); EOSINOPHILS % 10.1 % (0.0-7.0); HEMATOCRIT 28.8 % (37.0-47.0); HEMOGLOBIN 8.3 g/dl (12.0-16.0); LYMPHOCYTES # 0.7 10^3/ul (0.8-2.9); LYMPHOCYTES % 9.4 % (15.0-51.0); MEAN CORPUSCULAR HEMOGLOBIN 28.9 pg (29.0-33.0); MEAN CORPUSCULAR HGB CONC 28.8 g/dl (32.0-37.0); MEAN CORPUSCULAR VOLUME 100.3 fl (82.0-101.0); MEAN PLATELET VOLUME 10.7 fl (7.4-10.4); MONOCYTE # 0.6 10^3/ul (0.3-0.9); MONOCYTES % 7.4 % (0.0-11.0); NEUTROPHIL # 5.5 10^3/ul (1.6-7.5); NEUTROPHILS % 71.9 % (39.0-77.0); PLATELET COUNT 263 10^3/UL (140-415); RED BLOOD COUNT 2.87 10^6/ul (4.20-5.40); RED CELL DISTRIBUTION WIDTH 19.6 % (11.5-14.5); WHITE BLOOD COUNT 7.7 10^3/ul (4.8-10.8)
[2016-09-21] MEDS ORDERED: MIDODRINE 5 MG TAB NGT SCH (06:00)
[2016-09-21] MEDS: BUMETANIDE 1 MG TAB GTB SCH ×2 (06:00→17:52)
[2016-09-21] MEDS: LACTULOSE 30ML CUP PO SCH ×3 (06:00→17:49)
[2016-09-21] MEDS: MIDODRINE 5 MG TAB GTB SCH ×4 (06:00→21:39)
[2016-09-21 06:06] LABS: POSITIVE DIFF @See below
[2016-09-21 06:28] LABS: CALCIUM 8.5 mg/dl (8.4-10.2); CREATININE 0.55 mg/dl (0.44-1.00); POTASSIUM 3.3 mmol/L (3.5-5.1)
[2016-09-21 06:30] LABS: MAGNESIUM 2.1 mg/dl (1.7-2.5); PHOSPHORUS 3.8 mg/dl (2.5-4.9)
--- NOTE | 2016-09-21 08:08 | RADRPT ---
PROCEDURE: Ultrasound guided paracentesis CLINICAL INDICATION: Ascites TECHNIQUE: Risks benefits and alternatives of the procedure were explained to the patient. Inform ed written consent was obtained. A time out was performed. Informed written consent was obtained p rior to beginning the procedure. 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 Fluid was identified in the lower quadrant. The overlying skin of the right lower quadrant was prepped an d draped in the usual sterile fashion. 5 cc of lidocaine was injected locally for pain control. Und er ultrasound guidance, a skinny 5-[place] Yueh catheter was introduced into the peritoneal cavity. F luid was obtained without difficulty. The fluid was sent the laboratory for further analysis. The patient tolerated procedure well without complication. COMPARISON: None FINDINGS: Approximately 3660 cc of clear yellow fluid was obtained. The fluid was sent to the laboratory for further evaluation, as requested. IMPRESSION: Successful ultrasound-guided paracentesis. RPTAT: PP Physician Mars Date Time Electronically viewed and signed by Physician Mars on 09/21/2016 08:08 RUSH/
[2016-09-21] MEDS ORDERED: POTASSIUM CHLORIDE 20 MEQ POWDER FOR ORAL SOLN NGT ONE (09:00)
[2016-09-21] MEDS: FOLIC ACID 1 MG TAB GTB SCH (09:01)
[2016-09-21] MEDS: AMIODARONE 200 MG TAB GTB SCH (09:01)
[2016-09-21] MEDS: LACTOBACILLUS RHAMNOSUS CAP PO SCH ×2 (09:01→21:39)
[2016-09-21] MEDS: FERROUS SULFATE (EC) 325 MG TAB PO SCH ×4 (09:02→21:39)
[2016-09-21] MEDS: PANTOPRAZOLE (EC) 40 MG TAB PO SCH (09:02)
[2016-09-21] MEDS: ASCORBIC ACID 500 MG TAB PO SCH ×2 (09:02→21:39)
[2016-09-21] MEDS: MULTIVITAMINS THERAPEUTIC TAB GTB SCH (09:03)
[2016-09-21] MEDS: CHLORHEXIDINE GLUCONATE 15 ML UD CUP MM SCH ×2 (09:03→21:38)
[2016-09-21] MEDS: CEFEPIME 1GM/50 ML (PMX) 50 ML IVPB SCH (09:03)
--- NOTE | 2016-09-21 09:29 | PN ---
DATE: 09/21/2016 SUBJECTIVE DATA: The patient is stable. No acute events overnight. No hemoptysis, hematemesis, hematochezia. OBJECTIVE DATA: VITAL SIGNS: Blood pressure 94/58, respirations 20, pulse 50, temperature 96.2. HEENT: Head is normocephalic. NECK: Supple. HEART: Regular rate. LUNGS: Diminished breath sounds at the base. ABDOMEN: Soft, nontender to palpation. No rebound or guarding. EXTREMITIES: Negative for clubbing, cyanosis. Positive edema. DERMATOLOGIC: No rashes. MUSCULOSKELETAL: No joint effusion. NEUROLOGIC: No change in exam. MEDICATIOSN: The patient's medications have been reviewed. LABORATORY AND DIAGNOSTIC DATA: Sodium 148, potassium 3.19. BUN 75, creatinine 0.55. White count 7.7, hemoglobin 8.3, hematocrit 28.8, platelet count 263. ASSESSMENT AND PLAN: 1. Nonoliguric acute kidney injury on top of chronic kidney disease with previous baseline creatinine of 0.6 mg/dL. Etiology of acute kidney injury secondary to hemodynamics. The patient's renal function appears to be returning to baseline. Please note, the patient's creatinine is grossly overestimating the estimated glomerular filtration rate due to significant muscular atrophy. The patient also has underlying azotemia which is slowly improving after placing the patient on a lower protein diet. At this point, continue current treatment plan and supportive care. Renally dose all medications. 2. Hypokalemia. Continue to monitor and replete. 3. Hypernatremia. Patient has a free water deficit of 2 L. Continue free water flushes, will increase to 300 mL q.4 hours. 4. Mineral bone disorder. Continue to monitor calcium and phosphorus levels. 5. Anemia monitor hemoglobin and hematocrit levels. 6. Sepsis, secondary to healthcare-associated pneumonia. Continue current antibiotic regimen. 7. Ventilatory-dependent respiratory failure. Ventilator settings and arterial blood gases have been reviewed. Continue to monitor. Follow up with Pulmonary. 8. History of cardiomyopathy. Continue current medical management. 9. Dysphagia, status post percutaneous endoscopic gastrostomy. Continue tube feeding. 10. Quadriplegia, secondary to muscular dystrophy. Continue to monitor. 11. Hypotension. Monitor closely. Place parameters on blood pressure medications. 12. History of ascites. 13. [id number] congestive heart failure. The patient is currently on diuretic therapy. Follow up with Cardiology. Dictated By: Raymon Giordano DO /reynaldo/arden /Document#: [id number]
[2016-09-21] MEDS: MULTIVITAMINS 30 ML CUP GTB SCH (10:05)
--- NOTE | 2016-09-21 11:23 | PN ---
Date/Time of Note Date/Time of Note DATE: 09/21/16 TIME: 11:13 Assessment/Plan VTE Prophylaxis VTE Prophylaxis Intervention: SCD's Lines/Catheters IV C[facility]ter Type (from [facility]): Peripheral IV Urinary Cath still in place: Yes Reason Cath still needed: other (indicate) Assessment/Plan Chief Complaint/Hosp Course 1. Acute on chronic Congestive heart failure -Continue diuresis. -off beta-armando and JUAN inhibitor due to hypotension and renal failure, consider resuming JUAN inhibitors as renal function has improved. 2. Healthcare associated pneumonia. Resolving -Continue antibiotics. -Negative cultures. 2. Chronic Trach/vent dependent respiratory failure - Continue trach support, bronchodilators. Follow-up pulmonary recommendation 3. Cardiomyopathy with EF of 30% to 35%, AICD -Continue current medical management. 4. Hyperkalemia initially, now with hypokalemia. - Follow-up with renal RECS 5. Chronic hypoxic encephalopathy. - Monitor. 6. Dysphagia s/p PEG tube -continue tube feeds as tolerated. 7. Ascites -Status post 365. 8. Diabetes - A1c = 5.2. - continue sliding scale insulin, Levemir, aspart TID 9. Acute kidney injury on chronic kidney disease. No stable - Follow-up renal recommendations. 10. Hypertension, now with borderline hypertension- -continue antihypertensives with blood pressure parameters 11. History of quadriplegia secondary to muscular dystrophy -Monitor and supportive care 12. Anemia: Hemoglobin presently stable -Monitor for now 13. Hypernatremia -Freewater via G-tube, D5W. Again, follow-up with nephrology recommendation. 15. Pulmonary hypertension. -Diuresis and oxygen. DVT prophylaxis: SCDs PUD prophylaxis: Protonix Plan: Continue current medical management. Discharge planning once cleared from consultants. Patient to be monitored by overnight stocker after discharge for restarting on chronic anticoagulation paroxysmal atrial fibrillation. Case discussed with Problems: Subjective 24 Hr Interval Summary Free Text/Dictation Patient remains on the vent.Remains afebrile. Exam/Review of Systems Vital Signs Vitals Vital Signs Date Time Temp Pulse Resp B/P Pulse Ox O2 Delivery O2 Flow Rate FiO2 09/21/16 10:55 97.2 60 20 93/54 97 09/21/16 09:05 35 Intake and Output 09/20/16 09/20/16 09/21/16 15:00 23:00 07:00 Intake Total 1720 ml 415 ml Output Total 1350 ml 675 ml Balance 370 ml -260 ml Exam General: Chronically ill looking, female on vent . HEENT: Normocephalic, Atraumatic, No laceration or hematoma; Eyes: PEERL, Conjunctiva clear, Anicteric sclera Neck: Supple without any lymphadenopathy, nontender, no JVD, no carotid bruits, trachea midline, no thyromegaly Cardiac: S1, S2 auscultated, regular rhythm and rate, no mumurs or gallop Pulmonary: Trach to vent.Chest clear to auscultation bilaterally, no adventitious breath sounds GI: Abdomen normal to inspection. Soft, non tender, non- distended, no masses, no rebound tenderness or guarding. Bowel sounds active on all four quadrants Genitourinary: Deferred Extremities: Quadriplegic Neurologic: Encephalopathy. Flat affect. Skin: Clean,dry, and intact. No ecchymosis, no rashes, or lesions Results Result Diagram: 09/21/16 0509/21/16518 Results 24 hrs Laboratory Tests Test 09/20/16 11:35 09/20/16 12:08 09/20/16 17:10 09/20/16 17:45 Ammonia 80 #H Bedside Glucose 169 166 Body Fluid Type ASCITIES FLUID Body Fluid Volume 56.0 Body Fluid Color YELLOW Body Fluid Appearance SLIGHTLY HAZY Body Fluid WBC 98 Body Fluid RBC (Auto) 0 Body Fluid Polynuclear WBCs (%) 43.9 Body Fluid Mononuclear Cells % Auto 56.1 Body Fluid Glucose 167 Body Fluid Total Protein 3.8 Body Fluid Lactate Dehydrogenase 242 Body Fluid Amylase < 30 Test 09/20/16 21:50 09/21/16 00:57 09/21/16 05:19 09/21/16 06:29 Bedside Glucose 184 196 183 White Blood Count 7.7 Red Blood Count 2.87 L Hemoglobin 8.3 L Hematocrit 28.8 L Mean Corpuscular Volume 100.3 Mean Corpuscular Hemoglobin 28.9 L Mean Corpuscular Hemoglobin Concent 28.8 L Red Cell Distribution Width 19.6 H Platelet Count 263 Mean Platelet Volume 10.7 H Neutrophils % 71.9 Lymphocytes % 9.4 L Monocytes % 7.4 Eosinophils % 10.1 H Basophils % 0.4 Nucleated Red Blood Cells % 0.0 Neutrophils # 5.5 Lymphocytes # 0.7 L Monocytes # 0.6 Eosinophils # 0.8 H Basophils # 0.0 Nucleated Red Blood Cells # 0.0 Sodium Level 148 H Potassium Level 3.3 L Chloride Level 109 Carbon Dioxide Level 24 Anion Gap 18 H Blood Urea Nitrogen 75 H Creatinine 0.55 Glucose Level 178 Calcium Level 8.5 Phosphorus Level 3.8 Magnesium Level 2.1 Ammonia 63 H Random Vancomycin Level 15.6 Test 09/21/16 08:58 Bedside Glucose 173 Medications Medications Current Medications Ondansetron HCl (Zofran Inj) 4 mg Q6H PRN IV NAUSEA AND/OR VOMITING Last administered on 09/20/16 23:29; Admin Dose 4 MG; Start 09/15/16 at 06:30 Acetaminophen (Tylenol Tab) 650 mg Q6H PRN PO PAIN LEVEL 1-3 OR FEVER Last administered on 09/16/16 20:10; Admin Dose 650 MG; Start 09/15/16 at 06:30 Acetaminophen (Tylenol Supp) 650 mg Q6H PRN [place] PAIN LEVEL 1-3 OR FEVER; Start 09/15/16 at 06:30 Amiodarone HCl (Cordarone) 200 mg DAILY GTB Last administered on 09/21/16 09:01 ; Admin Dose 200 MG; Start 09/15/16 at 09:00 Bisacodyl (Dulcolax Supp) 10 mg Q24H PRN [place] CONSTIPATION; Start 09/15/16 at 06: 30 Chlorhexidine Gluconate (Peridex) 15 ml BID MM Last administered on 09/21/16 09 :03; Admin Dose 15 ML; Start 09/15/16 at 09:00 Docusate Sodium (Colace) 200 mg QHS PRN PO CONSTIPATION; Start 09/15/16 at 06:30 Lisinopril (Zestril) 2.5 mg BID GTB Last administered on 09/15/16 09:24; Admin Dose 2.5 MG; Start 09/15/16 at 09:00; Status Future Hold Pantoprazole (Protonix Tab) 40 mg DAILY PO Last administered on 09/21/16 09:02 ; Admin Dose 40 MG; Start 09/15/16 at 09:00 Epoetin Kt (Epogen (Non Esrd/Non Oncology)) 3,000 units MoWeFr@17 SC Last administered on 09/18/16 17:48; Admin Dose 3,000 UNITS; Start 09/16/16 at 17:00 Epoetin Kt 2000 units 2,000 units MoWeFr@17 SC Last administered on 09/18/16 17:47; Admin Dose 2,000 UNITS; Start 09/16/16 at 17:00 Vancomycin HCl/ Sodium Chloride (Vancocin/NS) 250 ml @ 83.333 mls/ hr Q12H IVPB Last administered on 09/16/16 22:00; Admin Dose 83.333 MLS/HR; Start at 10:00; Status Future Hold Diphenhydramine HCl (Benadryl) 25 mg Q6H PRN IV ITCHING Last administered on 01:00; Admin Dose 25 MG; Start 09/15/16 at 21:00 Tramadol HCl (Ultram) 50 mg Q6H PRN GTB PAIN LEVEL 6-10 Last administered on 21:44; Admin Dose 50 MG; Start 09/17/16 at 12:00 Miscellaneous Information 1 ea NOTE XX ; Start 09/17/16 at 12:00 Insulin Aspart (Novolog Insulin Pen) NOVOLOG *MILD* ALGORI... Q6 SC Last administered on 09/21/16 06:53; Admin Dose 2 UNIT; Start 09/18/16 at 06:00 Miscellaneous Information 1 ea NOTE XX ; Start 09/17/16 at 22:45 Glucose (Glutose) 15 gm Q15M PRN PO DECREASED GLUCOSE; Start 09/17/16 at 22:45 Glucose (Glutose) 22.5 gm Q15M PRN PO DECREASED GLUCOSE; Start 09/17/16 at 22:45 Dextrose (D50w Syringe) 25 ml Q15M PRN IV DECREASED GLUCOSE; Start 09/17/16 at 22:45 Dextrose (D50w Syringe) 50 ml Q15M PRN IV DECREASED GLUCOSE; Start 09/17/16 at 22:45 Glucagon (Glucagen) 1 mg Q15M PRN IM DECREASED GLUCOSE; Start 09/17/16 at 22:45 Glucose (Glutose) 15 gm Q15M PRN BUCCAL DECREASED GLUCOSE; Start 09/17/16 at 22: 45 Acetaminophen (Tylenol Tab) 650 mg Q4 PRN GTB PAIN AND OR ELEVATED TEMP; Start 09/18/16 at 11:30 Albuterol (Proventil 0.083% (Neb)) 2.5 mg Q3H PRN NEB WHEEZING AND SOB; Start 09/18/16 at 11:30 Ascorbic Acid (Vitamin C) 500 mg BID PO Last administered on 09/21/16 09:02; Admin Dose 500 MG; Start 09/18/16 at 21:00 Folic Acid (Folic Acid) 1 mg DAILY GTB Last administered on 09/21/16 09:01; Admin Dose 1 MG; Start 09/19/16 at 09:00 Hydroxyzine HCl (Atarax) 25 mg Q8H PRN PO ITCHING; Start 09/18/16 at 11:30 Lorazepam (Ativan) 1 mg Q8 PRN GTB ANXIETY; Start 09/18/16 at 11:30 Magnesium Hydroxide (Milk Of Mag) 30 ml DAILY PRN GTB CONSTIPATION; Start at 11:30 Sodium Biphosphate/ Sodium Phosphate (Fleet Enema Pediatric) 66.6 ml DAILY PRN [place] CONSTIPATION; Start 09/18/16 at 11:30 Lactobacillus Acidophilus/ Rhamnosus (Culturelle) 1 cap BID PO Last administered on 09/21/16 09:01; Admin Dose 1 CAP; Start 09/18/16 at 21:00 Insulin Aspart (Novolog Insulin Pen) 5 unit TID SC Last administered on 09:17; Admin Dose 5 UNIT; Start 09/18/16 at 13:00 Insulin Detemir 18 unit 18 unit HS SC Last administered on 09/20/16 21:56; Admin Dose 18 UNIT; Start 09/18/16 at 21:00 Cefepime HCl (Maxipime 1gm/50 ml (Pmx)) 50 ml @ 100 mls/hr Q24H IVPB Last administered on 09/21/16 09:03; Admin Dose 100 MLS/HR; Start 09/19/16 at 09:00 Morphine Sulfate (morphine) 2 mg Q4H PRN IV PAIN LEVEL 7-10 Last administered on 09/21/16 08:55; Admin Dose 2 MG; Start 09/19/16 at 11:30 Lorazepam (Ativan) 1 mg Q6H PRN IV ANXIETY Last administered on 09/21/16 03:19 ; Admin Dose 1 MG; Start 09/19/16 at 18:30 Lactulose (Enulose) 20 gm Q6 PO Last administered on 09/20/16 23:30; Admin Dose 20 GM; Start 09/20/16 at 13:30 Midodrine (Proamatine) 5 mg TID GTB Last administered on 09/21/16 09:04; Admin Dose 5 MG; Start 09/21/16 at 06:00 Ferrous Sulfate (Ferrous Sulfate (Ec)) 325 mg TID PO ; Start 09/21/16 at 10:00 Multivitamins (Multivitamin) 30 ml DAILY GTB ; Start 09/21/16 at 10:30 SHONDA SOUZA NP Sep 21, 2016 11:23 SHONDA SOUZA NP Sep 21, 2016 11:23 Insulin Detemir 18 unit 18 unit HS SC Last administered on 09/20/16 21:56; Admin Dose 18 UNIT; Start 09/18/16 at 21:00 Cefepime HCl (Maxipime 1gm/50 ml (Pmx)) 50 ml @ 100 mls/hr Q24H IVPB Last administered on 09/21/16 09:03; Admin Dose 100 MLS/HR; Start 09/19/16 at 09:00 Morphine Sulfate (morphine) 2 mg Q4H PRN IV PAIN LEVEL 7-10 Last administered on 09/21/16 08:55; Admin Dose 2 MG; Start 09/19/16 at 11:30 Lorazepam (Ativan) 1 mg Q6H PRN IV ANXIETY Last administered on 09/21/16 03:19 ; Admin Dose 1 MG; Start 09/19/16 at 18:30 Lactulose (Enulose) 20 gm Q6 PO Last administered on 09/20/16 23:30; Admin Dose 20 GM; Start 09/20/16 at 13:30 Midodrine (Proamatine) 5 mg TID GTB Last administered on 09/21/16 09:04; Admin Dose 5 MG; Start 09/21/16 at 06:00 Ferrous Sulfate (Ferrous Sulfate (Ec)) 325 mg TID PO ; Start 09/21/16 at 10:00 Multivitamins (Multivitamin) 30 ml DAILY GTB ; Start 09/21/16 at 10:30 SHONDA SOUZA NP Sep 21, 2016 11:23
--- NOTE | 2016-09-21 11:35 | CONS ---
Date/Time of Note Date/Time of Note DATE: 09/21/16 TIME: 11:30 Assessment/Plan Assessment/Plan Chief Complaint/Hosp Course 50-year-old female resident of a subacute facility was PEG trach admitted with healthcare acquired pneumonia. We have an incomplete database except the patient has multiple comorbid major medical problems including muscular dystrophy morbid obesity type 2 diabetes cardiomyopathy with an EF of 30-35 per. When brought to the emergency room 100% FiO2 for sats were 100 she was diagnosed with bilateral infiltrate and admitted. Patient is a non-historian, reason to be ascertained from patient's old medical records or family members. It is noted in patient's medical records that she has altered mental status etiology unknown. Problems: Additional Assessment/Plan Postdated note for visit with family progress September 19 2016 .family conference was done with patient's and sister. We discussed goals of care patient' s CODE STATUS their level of understanding of his clinical condition fears concerns ethical issues were discussed and religion concerns. Level of care was discussed with patient's primarily who felt that his wanted to live under any circumstances including cardiopulmonary resuscitation. Patient' s sister did not necessarily agree with that and was concerned that her sister would suffer an event that she would require aggressive and possibly futile care in the future. She was receptive to changing patient's CODE STATUS.. I doubt that patient's will changes decision. Consultation Date/Type/Reason Admit Date/Time Sep 15, 2016 at 01:59 Initial Consult Date 09/16/16 Type of Consultation: Palliative care Exam/Review of Systems Vital Signs Vitals Vital Signs Date Time Temp Pulse Resp B/P Pulse Ox O2 Delivery O2 Flow Rate FiO2 09/21/16 11:00 60 19 96 35 09/21/16 10:55 97.2 93/54 Intake and Output 09/20/16 09/20/16 09/21/16 15:00 23:00 07:00 Intake Total 1720 ml 415 ml Output Total 1350 ml 675 ml Balance 370 ml -260 ml Results Result Diagram: 09/21/16 0519 09/21/16 0519 Results 24 hrs Laboratory Tests Test 09/20/16 11:35 09/20/16 12:08 09/20/16 17:10 09/20/16 17:45 Ammonia 80 #H Bedside Glucose 169 166 Body Fluid Type ASCITIES FLUID Body Fluid Volume 56.0 Body Fluid Color YELLOW Body Fluid Appearance SLIGHTLY HAZY Body Fluid WBC 98 Body Fluid RBC (Auto) 0 Body Fluid Polynuclear WBCs (%) 43.9 Body Fluid Mononuclear Cells % Auto 56.1 Body Fluid Glucose 167 Body Fluid Total Protein 3.8 Body Fluid Lactate Dehydrogenase 242 Body Fluid Amylase < 30 Test 09/20/16 21:50 09/21/16 00:57 09/21/16 05:19 09/21/16 06:29 Bedside Glucose 184 196 183 White Blood Count 7.7 Red Blood Count 2.87 L Hemoglobin 8.3 L Hematocrit 28.8 L Mean Corpuscular Volume 100.3 Mean Corpuscular Hemoglobin 28.9 L Mean Corpuscular Hemoglobin Concent 28.8 L Red Cell Distribution Width 19.6 H Platelet Count 263 Mean Platelet Volume 10.7 H Neutrophils % 71.9 Lymphocytes % 9.4 L Monocytes % 7.4 Eosinophils % 10.1 H Basophils % 0.4 Nucleated Red Blood Cells % 0.0 Neutrophils # 5.5 Lymphocytes # 0.7 L Monocytes # 0.6 Eosinophils # 0.8 H Basophils # 0.0 Nucleated Red Blood Cells # 0.0 Sodium Level 148 H Potassium Level 3.3 L Chloride Level 109 Carbon Dioxide Level 24 Anion Gap 18 H Blood Urea Nitrogen 75 H Creatinine 0.55 Glucose Level 178 Calcium Level 8.5 Phosphorus Level 3.8 Magnesium Level 2.1 Ammonia 63 H Random Vancomycin Level 15.6 Test 09/21/16 08:58 Bedside Glucose 173 Medications Medications Current Medications Ondansetron HCl (Zofran Inj) 4 mg Q6H PRN IV NAUSEA AND/OR VOMITING Last administered on 09/20/16 23:29; Admin Dose 4 MG; Start 09/15/16 at 06:30 Acetaminophen (Tylenol Tab) 650 mg Q6H PRN PO PAIN LEVEL 1-3 OR FEVER Last administered on 09/16/16 20:10; Admin Dose 650 MG; Start 09/15/16 at 06:30 Acetaminophen (Tylenol Supp) 650 mg Q6H PRN [place] PAIN LEVEL 1-3 OR FEVER; Start 09/15/16 at 06:30 Amiodarone HCl (Cordarone) 200 mg DAILY GTB Last administered on 09/21/16 09:01 ; Admin Dose 200 MG; Start 09/15/16 at 09:00 Bisacodyl (Dulcolax Supp) 10 mg Q24H PRN [place] CONSTIPATION; Start 09/15/16 at 06: 30 Chlorhexidine Gluconate (Peridex) 15 ml BID MM Last administered on 09/21/16 09 :03; Admin Dose 15 ML; Start 09/15/16 at 09:00 Docusate Sodium (Colace) 200 mg QHS PRN PO CONSTIPATION; Start 09/15/16 at 06:30 Lisinopril (Zestril) 2.5 mg BID GTB Last administered on 09/15/16 09:24; Admin Dose 2.5 MG; Start 09/15/16 at 09:00; Status Future Hold Pantoprazole (Protonix Tab) 40 mg DAILY PO Last administered on 09/21/16 09:02 ; Admin Dose 40 MG; Start 09/15/16 at 09:00 Epoetin Kt (Epogen (Non Esrd/Non Oncology)) 3,000 units MoWeFr@17 SC Last administered on 09/18/16 17:48; Admin Dose 3,000 UNITS; Start 09/16/16 at 17:00 Epoetin Kt 2000 units 2,000 units MoWeFr@17 SC Last administered on 09/18/16 17:47; Admin Dose 2,000 UNITS; Start 09/16/16 at 17:00 Vancomycin HCl/ Sodium Chloride (Vancocin/NS) 250 ml @ 83.333 mls/ hr Q12H IVPB Last administered on 09/16/16 22:00; Admin Dose 83.333 MLS/HR; Start at 10:00; Status Future Hold Diphenhydramine HCl (Benadryl) 25 mg Q6H PRN IV ITCHING Last administered on 01:00; Admin Dose 25 MG; Start 09/15/16 at 21:00 Tramadol HCl (Ultram) 50 mg Q6H PRN GTB PAIN LEVEL 6-10 Last administered on 21:44; Admin Dose 50 MG; Start 09/17/16 at 12:00 Miscellaneous Information 1 ea NOTE XX ; Start 09/17/16 at 12:00 Insulin Aspart (Novolog Insulin Pen) NOVOLOG *MILD* ALGORI... Q6 SC Last administered on 09/21/16 06:53; Admin Dose 2 UNIT; Start 09/18/16 at 06:00 Miscellaneous Information 1 ea NOTE XX ; Start 09/17/16 at 22:45 Glucose (Glutose) 15 gm Q15M PRN PO DECREASED GLUCOSE; Start 09/17/16 at 22:45 Glucose (Glutose) 22.5 gm Q15M PRN PO DECREASED GLUCOSE; Start 09/17/16 at 22:45 Dextrose (D50w Syringe) 25 ml Q15M PRN IV DECREASED GLUCOSE; Start 09/17/16 at 22:45 Dextrose (D50w Syringe) 50 ml Q15M PRN IV DECREASED GLUCOSE; Start 09/17/16 at 22:45 Glucagon (Glucagen) 1 mg Q15M PRN IM DECREASED GLUCOSE; Start 09/17/16 at 22:45 Glucose (Glutose) 15 gm Q15M PRN BUCCAL DECREASED GLUCOSE; Start 09/17/16 at 22: 45 Acetaminophen (Tylenol Tab) 650 mg Q4 PRN GTB PAIN AND OR ELEVATED TEMP; Start 09/18/16 at 11:30 Albuterol (Proventil 0.083% (Neb)) 2.5 mg Q3H PRN NEB WHEEZING AND SOB; Start 09/18/16 at 11:30 Ascorbic Acid (Vitamin C) 500 mg BID PO Last administered on 09/21/16 09:02; Admin Dose 500 MG; Start 09/18/16 at 21:00 Folic Acid (Folic Acid) 1 mg DAILY GTB Last administered on 09/21/16 09:01; Admin Dose 1 MG; Start 09/19/16 at 09:00 Hydroxyzine HCl (Atarax) 25 mg Q8H PRN PO ITCHING; Start 09/18/16 at 11:30 Lorazepam (Ativan) 1 mg Q8 PRN GTB ANXIETY; Start 09/18/16 at 11:30 Magnesium Hydroxide (Milk Of Mag) 30 ml DAILY PRN GTB CONSTIPATION; Start at 11:30 Sodium Biphosphate/ Sodium Phosphate (Fleet Enema Pediatric) 66.6 ml DAILY PRN [place] CONSTIPATION; Start 09/18/16 at 11:30 Lactobacillus Acidophilus/ Rhamnosus (Culturelle) 1 cap BID PO Last administered on 09/21/16 09:01; Admin Dose 1 CAP; Start 09/18/16 at 21:00 Insulin Aspart (Novolog Insulin Pen) 5 unit TID SC Last administered on 09:17; Admin Dose 5 UNIT; Start 09/18/16 at 13:00 Insulin Detemir 18 unit 18 unit HS SC Last administered on 09/20/16 21:56; Admin Dose 18 UNIT; Start 09/18/16 at 21:00 Cefepime HCl (Maxipime 1gm/50 ml (Pmx)) 50 ml @ 100 mls/hr Q24H IVPB Last administered on 09/21/16 09:03; Admin Dose 100 MLS/HR; Start 09/19/16 at 09:00 Morphine Sulfate (morphine) 2 mg Q4H PRN IV PAIN LEVEL 7-10 Last administered on 09/21/16 08:55; Admin Dose 2 MG; Start 09/19/16 at 11:30 Lorazepam (Ativan) 1 mg Q6H PRN IV ANXIETY Last administered on 09/21/16 03:19 ; Admin Dose 1 MG; Start 09/19/16 at 18:30 Lactulose (Enulose) 20 gm Q6 PO Last administered on 09/20/16 23:30; Admin Dose 20 GM; Start 09/20/16 at 13:30 Midodrine (Proamatine) 5 mg TID GTB Last administered on 09/21/16 09:04; Admin Dose 5 MG; Start 09/21/16 at 06:00 Ferrous Sulfate (Ferrous Sulfate (Ec)) 325 mg TID PO ; Start 09/21/16 at 10:00 Multivitamins (Multivitamin) 30 ml DAILY GTB ; Start 09/21/16 at 10:30 GOVIND PAGE Sep 21, 2016 11:34
--- NOTE | 2016-09-21 11:36 | CONS ---
Date/Time of Note Date/Time of Note DATE: 09/21/16 TIME: 11:35 Assessment/Plan Assessment/Plan Chief Complaint/Hosp Course 50-year-old female resident of a subacute facility was PEG trach admitted with healthcare acquired pneumonia. We have an incomplete database except the patient has multiple comorbid major medical problems including muscular dystrophy morbid obesity type 2 diabetes cardiomyopathy with an EF of 30-35 per. When brought to the emergency room 100% FiO2 for sats were 100 she was diagnosed with bilateral infiltrate and admitted. Patient is a non-historian, reason to be ascertained from patient's old medical records or family members. It is noted in patient's medical records that she has altered mental status etiology unknown. Problems: Additional Assessment/Plan There is been no change in her overall clinical condition, she is receiving aggressive intervention seems to be improving. Cognition has improved since last time I evaluated her. Consultation Date/Type/Reason Admit Date/Time Sep 15, 2016 at 01:59 Initial Consult Date 09/16/16 Type of Consultation: Palliative care Exam/Review of Systems Vital Signs Vitals Vital Signs Date Time Temp Pulse Resp B/P Pulse Ox O2 Delivery O2 Flow Rate FiO2 09/21/16 11:00 60 19 96 35 09/21/16 10:55 97.2 93/54 Intake and Output 09/20/16 09/20/16 09/21/16 15:00 23:00 07:00 Intake Total 1720 ml 415 ml Output Total 1350 ml 675 ml Balance 370 ml -260 ml Exam Constitutional: other (No acute distress) Respiratory: clear to auscultation, normal air movement Cardiovascular: nl pulses, regular rate and rhythm Results Result Diagram: 09/21/16 0519 09/21/16 0519 Results 24 hrs Laboratory Tests Test 09/20/16 12:08 09/20/16 17:10 09/20/16 17:45 09/20/16 21:50 Bedside Glucose 169 166 184 Body Fluid Type ASCITIES FLUID Body Fluid Volume 56.0 Body Fluid Color YELLOW Body Fluid Appearance SLIGHTLY HAZY Body Fluid WBC 98 Body Fluid RBC (Auto) 0 Body Fluid Polynuclear WBCs (%) 43.9 Body Fluid Mononuclear Cells % Auto 56.1 Body Fluid Glucose 167 Body Fluid Total Protein 3.8 Body Fluid Lactate Dehydrogenase 242 Body Fluid Amylase < 30 Test 09/21/16 00:57 09/21/16 05:19 09/21/16 06:29 09/21/16 08:58 Bedside Glucose 196 183 173 White Blood Count 7.7 Red Blood Count 2.87 L Hemoglobin 8.3 L Hematocrit 28.8 L Mean Corpuscular Volume 100.3 Mean Corpuscular Hemoglobin 28.9 L Mean Corpuscular Hemoglobin Concent 28.8 L Red Cell Distribution Width 19.6 H Platelet Count 263 Mean Platelet Volume 10.7 H Neutrophils % 71.9 Lymphocytes % 9.4 L Monocytes % 7.4 Eosinophils % 10.1 H Basophils % 0.4 Nucleated Red Blood Cells % 0.0 Neutrophils # 5.5 Lymphocytes # 0.7 L Monocytes # 0.6 Eosinophils # 0.8 H Basophils # 0.0 Nucleated Red Blood Cells # 0.0 Sodium Level 148 H Potassium Level 3.3 L Chloride Level 109 Carbon Dioxide Level 24 Anion Gap 18 H Blood Urea Nitrogen 75 H Creatinine 0.55 Glucose Level 178 Calcium Level 8.5 Phosphorus Level 3.8 Magnesium Level 2.1 Ammonia 63 H Random Vancomycin Level 15.6 Medications Medications Current Medications Ondansetron HCl (Zofran Inj) 4 mg Q6H PRN IV NAUSEA AND/OR VOMITING Last administered on 09/20/16 23:29; Admin Dose 4 MG; Start 09/15/16 at 06:30 Acetaminophen (Tylenol Tab) 650 mg Q6H PRN PO PAIN LEVEL 1-3 OR FEVER Last administered on 09/16/16 20:10; Admin Dose 650 MG; Start 09/15/16 at 06:30 Acetaminophen (Tylenol Supp) 650 mg Q6H PRN [place] PAIN LEVEL 1-3 OR FEVER; Start 09/15/16 at 06:30 Amiodarone HCl (Cordarone) 200 mg DAILY GTB Last administered on 09/21/16 09:01 ; Admin Dose 200 MG; Start 09/15/16 at 09:00 Bisacodyl (Dulcolax Supp) 10 mg Q24H PRN [place] CONSTIPATION; Start 09/15/16 at 06: 30 Chlorhexidine Gluconate (Peridex) 15 ml BID MM Last administered on 09/21/16 09 :03; Admin Dose 15 ML; Start 09/15/16 at 09:00 Docusate Sodium (Colace) 200 mg QHS PRN PO CONSTIPATION; Start 09/15/16 at 06:30 Lisinopril (Zestril) 2.5 mg BID GTB Last administered on 09/15/16 09:24; Admin Dose 2.5 MG; Start 09/15/16 at 09:00; Status Future Hold Pantoprazole (Protonix Tab) 40 mg DAILY PO Last administered on 09/21/16 09:02 ; Admin Dose 40 MG; Start 09/15/16 at 09:00 Epoetin Kt (Epogen (Non Esrd/Non Oncology)) 3,000 units MoWeFr@17 SC Last administered on 09/18/16 17:48; Admin Dose 3,000 UNITS; Start 09/16/16 at 17:00 Epoetin Kt 2000 units 2,000 units MoWeFr@17 SC Last administered on 09/18/16 17:47; Admin Dose 2,000 UNITS; Start 09/16/16 at 17:00 Vancomycin HCl/ Sodium Chloride (Vancocin/NS) 250 ml @ 83.333 mls/ hr Q12H IVPB Last administered on 09/16/16 22:00; Admin Dose 83.333 MLS/HR; Start at 10:00; Status Future Hold Diphenhydramine HCl (Benadryl) 25 mg Q6H PRN IV ITCHING Last administered on 01:00; Admin Dose 25 MG; Start 09/15/16 at 21:00 Tramadol HCl (Ultram) 50 mg Q6H PRN GTB PAIN LEVEL 6-10 Last administered on 21:44; Admin Dose 50 MG; Start 09/17/16 at 12:00 Miscellaneous Information 1 ea NOTE XX ; Start 09/17/16 at 12:00 Insulin Aspart (Novolog Insulin Pen) NOVOLOG *MILD* ALGORI... Q6 SC Last administered on 09/21/16 06:53; Admin Dose 2 UNIT; Start 09/18/16 at 06:00 Miscellaneous Information 1 ea NOTE XX ; Start 09/17/16 at 22:45 Glucose (Glutose) 15 gm Q15M PRN PO DECREASED GLUCOSE; Start 09/17/16 at 22:45 Glucose (Glutose) 22.5 gm Q15M PRN PO DECREASED GLUCOSE; Start 09/17/16 at 22:45 Dextrose (D50w Syringe) 25 ml Q15M PRN IV DECREASED GLUCOSE; Start 09/17/16 at 22:45 Dextrose (D50w Syringe) 50 ml Q15M PRN IV DECREASED GLUCOSE; Start 09/17/16 at 22:45 Glucagon (Glucagen) 1 mg Q15M PRN IM DECREASED GLUCOSE; Start 09/17/16 at 22:45 Glucose (Glutose) 15 gm Q15M PRN BUCCAL DECREASED GLUCOSE; Start 09/17/16 at 22: 45 Acetaminophen (Tylenol Tab) 650 mg Q4 PRN GTB PAIN AND OR ELEVATED TEMP; Start 09/18/16 at 11:30 Albuterol (Proventil 0.083% (Neb)) 2.5 mg Q3H PRN NEB WHEEZING AND SOB; Start 09/18/16 at 11:30 Ascorbic Acid (Vitamin C) 500 mg BID PO Last administered on 09/21/16 09:02; Admin Dose 500 MG; Start 09/18/16 at 21:00 Folic Acid (Folic Acid) 1 mg DAILY GTB Last administered on 09/21/16 09:01; Admin Dose 1 MG; Start 09/19/16 at 09:00 Hydroxyzine HCl (Atarax) 25 mg Q8H PRN PO ITCHING; Start 09/18/16 at 11:30 Lorazepam (Ativan) 1 mg Q8 PRN GTB ANXIETY; Start 09/18/16 at 11:30 Magnesium Hydroxide (Milk Of Mag) 30 ml DAILY PRN GTB CONSTIPATION; Start at 11:30 Sodium Biphosphate/ Sodium Phosphate (Fleet Enema Pediatric) 66.6 ml DAILY PRN [place] CONSTIPATION; Start 09/18/16 at 11:30 Lactobacillus Acidophilus/ Rhamnosus (Culturelle) 1 cap BID PO Last administered on 09/21/16 09:01; Admin Dose 1 CAP; Start 09/18/16 at 21:00 Insulin Aspart (Novolog Insulin Pen) 5 unit TID SC Last administered on 09:17; Admin Dose 5 UNIT; Start 09/18/16 at 13:00 Insulin Detemir 18 unit 18 unit HS SC Last administered on 09/20/16 21:56; Admin Dose 18 UNIT; Start 09/18/16 at 21:00 Cefepime HCl (Maxipime 1gm/50 ml (Pmx)) 50 ml @ 100 mls/hr Q24H IVPB Last administered on 09/21/16 09:03; Admin Dose 100 MLS/HR; Start 09/19/16 at 09:00 Morphine Sulfate (morphine) 2 mg Q4H PRN IV PAIN LEVEL 7-10 Last administered on 09/21/16 08:55; Admin Dose 2 MG; Start 09/19/16 at 11:30 Lorazepam (Ativan) 1 mg Q6H PRN IV ANXIETY Last administered on 09/21/16 03:19 ; Admin Dose 1 MG; Start 09/19/16 at 18:30 Lactulose (Enulose) 20 gm Q6 PO Last administered on 09/20/16 23:30; Admin Dose 20 GM; Start 09/20/16 at 13:30 Midodrine (Proamatine) 5 mg TID GTB Last administered on 09/21/16 09:04; Admin Dose 5 MG; Start 09/21/16 at 06:00 Ferrous Sulfate (Ferrous Sulfate (Ec)) 325 mg TID PO ; Start 09/21/16 at 10:00 Multivitamins (Multivitamin) 30 ml DAILY GTB ; Start 09/21/16 at 10:30 GOVIND PAGE Sep 21, 2016 11:36
--- NOTE | 2016-09-21 15:12 | CONS ---
Date/Time of Note Date/Time of Note DATE: 09/21/16 TIME: 15:10 Consult Date/Type/Reason Admit Date/Time Sep 15, 2016 at 01:59 Initial Consult Date 09/18/16 Type of Consultation: Pulmonary Subjective Patient remains stable no new events Objective Vital Signs Date Time Temp Pulse Resp B/P Pulse Ox O2 Delivery O2 Flow Rate FiO2 09/21/16 13:00 53 18 96 35 09/21/16 10:55 97.2 93/54 Intake and Output 09/20/16 09/20/16 09/21/16 15:00 23:00 07:00 Intake Total 1720 ml 415 ml Output Total 1350 ml 675 ml Balance 370 ml -260 ml Exam PHYSICAL EXAMINATION GENERAL: Chronically ill appearing lady on mechanical ventilation VITAL SIGNS: see below. HEENT: Pupils equal, round, and reactive to light. Tracheostomy site clean and intact. CARDIAC: S1, S2, 3/6 systolic ejection murmur CHEST: Diminished air entry bilaterally. ABDOMEN: Mildly distended. Bowel sounds present no guarding or rebound EXTREMITIES: No cyanosis, clubbing edema +1 NEUROLOGIC: Generalized weakness Results/Medications Result Diagram: 09/21/16 0519 09/21/16 0519 Results 24 hrs Laboratory Tests Test 09/20/16 17:10 09/20/16 17:45 09/20/16 21:50 09/21/16 00:57 Body Fluid Type ASCITIES FLUID Body Fluid Volume 56.0 Body Fluid Color YELLOW Body Fluid Appearance SLIGHTLY HAZY Body Fluid WBC 98 Body Fluid RBC (Auto) 0 Body Fluid Polynuclear WBCs (%) 43.9 Body Fluid Mononuclear Cells % Auto 56.1 Body Fluid Glucose 167 Body Fluid Total Protein 3.8 Body Fluid Lactate Dehydrogenase 242 Body Fluid Amylase < 30 Bedside Glucose 166 184 196 Test 09/21/16 05:19 09/21/16 06:29 09/21/16 08:58 09/21/16 12:57 White Blood Count 7.7 Red Blood Count 2.87 L Hemoglobin 8.3 L Hematocrit 28.8 L Mean Corpuscular Volume 100.3 Mean Corpuscular Hemoglobin 28.9 L Mean Corpuscular Hemoglobin Concent 28.8 L Red Cell Distribution Width 19.6 H Platelet Count 263 Mean Platelet Volume 10.7 H Neutrophils % 71.9 Lymphocytes % 9.4 L Monocytes % 7.4 Eosinophils % 10.1 H Basophils % 0.4 Nucleated Red Blood Cells % 0.0 Neutrophils # 5.5 Lymphocytes # 0.7 L Monocytes # 0.6 Eosinophils # 0.8 H Basophils # 0.0 Nucleated Red Blood Cells # 0.0 Sodium Level 148 H Potassium Level 3.3 L Chloride Level 109 Carbon Dioxide Level 24 Anion Gap 18 H Blood Urea Nitrogen 75 H Creatinine 0.55 Glucose Level 178 Calcium Level 8.5 Phosphorus Level 3.8 Magnesium Level 2.1 Ammonia 63 H Random Vancomycin Level 15.6 Bedside Glucose 183 173 171 Medications Current Medications Ondansetron HCl (Zofran Inj) 4 mg Q6H PRN IV NAUSEA AND/OR VOMITING Last administered on 09/20/16 23:29; Admin Dose 4 MG; Start 09/15/16 at 06:30 Acetaminophen (Tylenol Tab) 650 mg Q6H PRN PO PAIN LEVEL 1-3 OR FEVER Last administered on 09/16/16 20:10; Admin Dose 650 MG; Start 09/15/16 at 06:30 Acetaminophen (Tylenol Supp) 650 mg Q6H PRN [place] PAIN LEVEL 1-3 OR FEVER; Start 09/15/16 at 06:30 Amiodarone HCl (Cordarone) 200 mg DAILY GTB Last administered on 09/21/16 09:01 ; Admin Dose 200 MG; Start 09/15/16 at 09:00 Bisacodyl (Dulcolax Supp) 10 mg Q24H PRN [place] CONSTIPATION; Start 09/15/16 at 06: 30 Chlorhexidine Gluconate (Peridex) 15 ml BID MM Last administered on 09/21/16 09 :03; Admin Dose 15 ML; Start 09/15/16 at 09:00 Docusate Sodium (Colace) 200 mg QHS PRN PO CONSTIPATION; Start 09/15/16 at 06:30 Lisinopril (Zestril) 2.5 mg BID GTB Last administered on 09/15/16 09:24; Admin Dose 2.5 MG; Start 09/15/16 at 09:00; Status Future Hold Pantoprazole (Protonix Tab) 40 mg DAILY PO Last administered on 09/21/16 09:02 ; Admin Dose 40 MG; Start 09/15/16 at 09:00 Epoetin Kt (Epogen (Non Esrd/Non Oncology)) 3,000 units MoWeFr@17 SC Last administered on 09/18/16 17:48; Admin Dose 3,000 UNITS; Start 09/16/16 at 17:00 Epoetin Kt (Epogen (Non Esrd/Non Oncology)) 2,000 units MoWeFr@17 SC Last administered on 09/18/16 17:47; Admin Dose 2,000 UNITS; Start 09/16/16 at 17:00 Diphenhydramine HCl (Benadryl) 25 mg Q6H PRN IV ITCHING Last administered on 01:00; Admin Dose 25 MG; Start 09/15/16 at 21:00 Tramadol HCl (Ultram) 50 mg Q6H PRN GTB PAIN LEVEL 6-10 Last administered on 21:44; Admin Dose 50 MG; Start 09/17/16 at 12:00 Miscellaneous Information 1 ea NOTE XX ; Start 09/17/16 at 12:00 Insulin Aspart (Novolog Insulin Pen) NOVOLOG *MILD* ALGORI... Q6 SC Last administered on 09/21/16 13:14; Admin Dose 1 UNIT; Start 09/18/16 at 06:00 Miscellaneous Information 1 ea NOTE XX ; Start 09/17/16 at 22:45 Glucose (Glutose) 15 gm Q15M PRN PO DECREASED GLUCOSE; Start 09/17/16 at 22:45 Glucose (Glutose) 22.5 gm Q15M PRN PO DECREASED GLUCOSE; Start 09/17/16 at 22:45 Dextrose (D50w Syringe) 25 ml Q15M PRN IV DECREASED GLUCOSE; Start 09/17/16 at 22:45 Dextrose (D50w Syringe) 50 ml Q15M PRN IV DECREASED GLUCOSE; Start 09/17/16 at 22:45 Glucagon (Glucagen) 1 mg Q15M PRN IM DECREASED GLUCOSE; Start 09/17/16 at 22:45 Glucose (Glutose) 15 gm Q15M PRN BUCCAL DECREASED GLUCOSE; Start 09/17/16 at 22: 45 Acetaminophen (Tylenol Tab) 650 mg Q4 PRN GTB PAIN AND OR ELEVATED TEMP; Start 09/18/16 at 11:30 Albuterol (Proventil 0.083% (Neb)) 2.5 mg Q3H PRN NEB WHEEZING AND SOB; Start 09/18/16 at 11:30 Ascorbic Acid (Vitamin C) 500 mg BID PO Last administered on 09/21/16 09:02; Admin Dose 500 MG; Start 09/18/16 at 21:00 Folic Acid (Folic Acid) 1 mg DAILY GTB Last administered on 09/21/16 09:01; Admin Dose 1 MG; Start 09/19/16 at 09:00 Hydroxyzine HCl (Atarax) 25 mg Q8H PRN PO ITCHING; Start 09/18/16 at 11:30 Lorazepam (Ativan) 1 mg Q8 PRN GTB ANXIETY; Start 09/18/16 at 11:30 Magnesium Hydroxide (Milk Of Mag) 30 ml DAILY PRN GTB CONSTIPATION; Start at 11:30 Sodium Biphosphate/ Sodium Phosphate (Fleet Enema Pediatric) 66.6 ml DAILY PRN [place] CONSTIPATION; Start 09/18/16 at 11:30 Lactobacillus Acidophilus/ Rhamnosus (Culturelle) 1 cap BID PO Last administered on 09/21/16 09:01; Admin Dose 1 CAP; Start 09/18/16 at 21:00 Insulin Aspart (Novolog Insulin Pen) 5 unit TID SC Last administered on 13:15; Admin Dose 5 UNIT; Start 09/18/16 at 13:00 Insulin Detemir 18 unit 18 unit HS SC Last administered on 09/20/16 21:56; Admin Dose 18 UNIT; Start 09/18/16 at 21:00 Cefepime HCl (Maxipime 1gm/50 ml (Pmx)) 50 ml @ 100 mls/hr Q24H IVPB Last administered on 09/21/16 09:03; Admin Dose 100 MLS/HR; Start 09/19/16 at 09:00 Morphine Sulfate (morphine) 2 mg Q4H PRN IV PAIN LEVEL 7-10 Last administered on 09/21/16 08:55; Admin Dose 2 MG; Start 09/19/16 at 11:30 Lorazepam (Ativan) 1 mg Q6H PRN IV ANXIETY Last administered on 09/21/16 03:19 ; Admin Dose 1 MG; Start 09/19/16 at 18:30 Lactulose (Enulose) 20 gm Q6 PO Last administered on 09/21/16 13:14; Admin Dose 20 GM; Start 09/20/16 at 13:30 Midodrine (Proamatine) 5 mg TID GTB Last administered on 09/21/16 13:14; Admin Dose 5 MG; Start 09/21/16 at 06:00 Ferrous Sulfate (Ferrous Sulfate (Ec)) 325 mg TID PO Last administered on 13:14; Admin Dose 325 MG; Start 09/21/16 at 10:00 Multivitamins 30 ml 30 ml DAILY GTB ; Start 09/21/16 at 10:30 Vancomycin HCl (Vancocin) 250 ml @ 125 mls/hr Q5D IVPB ; Start 09/21/16 at 22:00 Assessment/Plan Chief Complaint/Hosp Course Additional Assessment/Plan IMP: 1. VDRF 2. HCAP 3. CHF 4. CMY 5. Encephalopathy 6. Hypokalemia RECS: 1. Vent support 2. BDs/CPT 3. Abx per ID Discharge planning. Problems: YUNIEL JACK MD, [facility] Sep 21, 2016 15:12
--- NOTE | 2016-09-21 17:24 | CONS ---
Date/Time of Note Date/Time of Note DATE: 09/21/16 TIME: 17:22 Assessment/Plan Assessment/Plan Chief Complaint/Hosp Course Assessment: Acute on chronic systolic heart failure Cardiomyopathy, LVEF 20-25% - unclear etiology, unclear if patient has ever had ischemic workup, possibly due to muscular dystrophy Acute kidney injury on chronic kidney disease Healthcare-associated pneumonia - on antibiotics Chronic ventilator-dependent respiratory failure Muscular dystrophy Paroxysmal atrial fibrillation and atrial flutter History of ventricular tachycardia (Torsades de pointes) - status post Bi-V ICD upgrade January 2015 ([employer]) Diabetes mellitus Anemia of chronic disease History of right lower extremity deep vein thrombosis Severe peripheral arterial disease - prior CT LE angio with evidence of [employer] SFA and severe disease of popliteal Recommendations: - echocardiogram showed LVEF 20-25%, RVSP 63 mmHg - continue Bumex 1mg BID - continue amiodarone 200mg daily - off beta-armando and JUAN inhibitor due to borderline blood pressures and renal failure, resume for systolic heart failure as able - consider restarting on chronic anticoagulation paroxysmal atrial fibrillation and history of deep vein thrombosis when clinically more stable Problems: Consultation Date/Type/Reason Admit Date/Time Sep 15, 2016 at 01:59 Initial Consult Date 09/18/16 Type of Consultation: Cardiology 24 HR Interval Summary Free Text/Dictation Status post paracentesis with removal of [id number] yesterday. Patient is doing well, stable on ventilator. Detailed Summary Additional Comments Unable to obtain review of systems, patient on ventilator. Exam/Review of Systems Vital Signs Vitals Vital Signs Date Time Temp Pulse Resp B/P Pulse Ox O2 Delivery O2 Flow Rate FiO2 09/21/16 16:42 60 09/21/16 16:09 98.4 20 87/51 96 09/21/16 15:11 35 Intake and Output 09/20/16 09/20/16 09/21/16 15:00 23:00 07:00 Intake Total 1720 ml 415 ml Output Total 1350 ml 675 ml Balance 370 ml -260 ml Exam Constitutional: No alert, No distress Psych: No nl mood/affect, No no complaints Head: atraumatic, normocephalic Eyes: nl conjunctiva, nl lids ENMT: nl external ears & nose, nl nasal mucosa & septum Neck: other (tracheostomy) Respiratory: crackles/rales, diminished breath sounds Cardiovascular: irregular rhythm Gastrointestinal: non-tender, soft Extremities: No clubbing, No cyanosis Neurological: No nl mental status, No nl speech Results Result Diagram: 09/21/16 0519 09/21/16 0519 Results 24 hrs Laboratory Tests Test 09/20/16 17:45 09/20/16 21:50 09/21/16 00:57 09/21/16 05:19 Bedside Glucose 166 184 196 White Blood Count 7.7 Red Blood Count 2.87 L Hemoglobin 8.3 L Hematocrit 28.8 L Mean Corpuscular Volume 100.3 Mean Corpuscular Hemoglobin 28.9 L Mean Corpuscular Hemoglobin Concent 28.8 L Red Cell Distribution Width 19.6 H Platelet Count 263 Mean Platelet Volume 10.7 H Neutrophils % 71.9 Lymphocytes % 9.4 L Monocytes % 7.4 Eosinophils % 10.1 H Basophils % 0.4 Nucleated Red Blood Cells % 0.0 Neutrophils # 5.5 Lymphocytes # 0.7 L Monocytes # 0.6 Eosinophils # 0.8 H Basophils # 0.0 Nucleated Red Blood Cells # 0.0 Sodium Level 148 H Potassium Level 3.3 L Chloride Level 109 Carbon Dioxide Level 24 Anion Gap 18 H Blood Urea Nitrogen 75 H Creatinine 0.55 Glucose Level 178 Calcium Level 8.5 Phosphorus Level 3.8 Magnesium Level 2.1 Ammonia 63 H Random Vancomycin Level 15.6 Test 09/21/16 06:29 09/21/16 08:58 09/21/16 12:57 Bedside Glucose 183 173 171 Medications Medications Current Medications Ondansetron HCl (Zofran Inj) 4 mg Q6H PRN IV NAUSEA AND/OR VOMITING Last administered on 09/20/16 23:29; Admin Dose 4 MG; Start 09/15/16 at 06:30 Acetaminophen (Tylenol Tab) 650 mg Q6H PRN PO PAIN LEVEL 1-3 OR FEVER Last administered on 09/16/16 20:10; Admin Dose 650 MG; Start 09/15/16 at 06:30 Acetaminophen (Tylenol Supp) 650 mg Q6H PRN [place] PAIN LEVEL 1-3 OR FEVER; Start 09/15/16 at 06:30 Amiodarone HCl (Cordarone) 200 mg DAILY GTB Last administered on 09/21/16 09:01 ; Admin Dose 200 MG; Start 09/15/16 at 09:00 Bisacodyl (Dulcolax Supp) 10 mg Q24H PRN [place] CONSTIPATION; Start 09/15/16 at 06: 30 Chlorhexidine Gluconate (Peridex) 15 ml BID MM Last administered on 09/21/16 09 :03; Admin Dose 15 ML; Start 09/15/16 at 09:00 Docusate Sodium (Colace) 200 mg QHS PRN PO CONSTIPATION; Start 09/15/16 at 06:30 Lisinopril (Zestril) 2.5 mg BID GTB Last administered on 09/15/16 09:24; Admin Dose 2.5 MG; Start 09/15/16 at 09:00; Status Future Hold Pantoprazole (Protonix Tab) 40 mg DAILY PO Last administered on 09/21/16 09:02 ; Admin Dose 40 MG; Start 09/15/16 at 09:00 Epoetin Kt (Epogen (Non Esrd/Non Oncology)) 3,000 units MoWeFr@17 SC Last administered on 09/18/16 17:48; Admin Dose 3,000 UNITS; Start 09/16/16 at 17:00 Epoetin Kt (Epogen (Non Esrd/Non Oncology)) 2,000 units MoWeFr@17 SC Last administered on 09/18/16 17:47; Admin Dose 2,000 UNITS; Start 09/16/16 at 17:00 Diphenhydramine HCl (Benadryl) 25 mg Q6H PRN IV ITCHING Last administered on 01:00; Admin Dose 25 MG; Start 09/15/16 at 21:00 Tramadol HCl (Ultram) 50 mg Q6H PRN GTB PAIN LEVEL 6-10 Last administered on 21:44; Admin Dose 50 MG; Start 09/17/16 at 12:00 Miscellaneous Information 1 ea NOTE XX ; Start 09/17/16 at 12:00 Insulin Aspart (Novolog Insulin Pen) NOVOLOG *MILD* ALGORI... Q6 SC Last administered on 09/21/16 13:14; Admin Dose 1 UNIT; Start 09/18/16 at 06:00 Miscellaneous Information 1 ea NOTE XX ; Start 09/17/16 at 22:45 Glucose (Glutose) 15 gm Q15M PRN PO DECREASED GLUCOSE; Start 09/17/16 at 22:45 Glucose (Glutose) 22.5 gm Q15M PRN PO DECREASED GLUCOSE; Start 09/17/16 at 22:45 Dextrose (D50w Syringe) 25 ml Q15M PRN IV DECREASED GLUCOSE; Start 09/17/16 at 22:45 Dextrose (D50w Syringe) 50 ml Q15M PRN IV DECREASED GLUCOSE; Start 09/17/16 at 22:45 Glucagon (Glucagen) 1 mg Q15M PRN IM DECREASED GLUCOSE; Start 09/17/16 at 22:45 Glucose (Glutose) 15 gm Q15M PRN BUCCAL DECREASED GLUCOSE; Start 09/17/16 at 22: 45 Acetaminophen (Tylenol Tab) 650 mg Q4 PRN GTB PAIN AND OR ELEVATED TEMP; Start 09/18/16 at 11:30 Albuterol (Proventil 0.083% (Neb)) 2.5 mg Q3H PRN NEB WHEEZING AND SOB; Start 09/18/16 at 11:30 Ascorbic Acid (Vitamin C) 500 mg BID PO Last administered on 09/21/16 09:02; Admin Dose 500 MG; Start 09/18/16 at 21:00 Folic Acid (Folic Acid) 1 mg DAILY GTB Last administered on 09/21/16 09:01; Admin Dose 1 MG; Start 09/19/16 at 09:00 Hydroxyzine HCl (Atarax) 25 mg Q8H PRN PO ITCHING; Start 09/18/16 at 11:30 Lorazepam (Ativan) 1 mg Q8 PRN GTB ANXIETY; Start 09/18/16 at 11:30 Magnesium Hydroxide (Milk Of Mag) 30 ml DAILY PRN GTB CONSTIPATION; Start at 11:30 Sodium Biphosphate/ Sodium Phosphate (Fleet Enema Pediatric) 66.6 ml DAILY PRN [place] CONSTIPATION; Start 09/18/16 at 11:30 Lactobacillus Acidophilus/ Rhamnosus (Culturelle) 1 cap BID PO Last administered on 09/21/16 09:01; Admin Dose 1 CAP; Start 09/18/16 at 21:00 Insulin Aspart (Novolog Insulin Pen) 5 unit TID SC Last administered on 13:15; Admin Dose 5 UNIT; Start 09/18/16 at 13:00 Insulin Detemir 18 unit 18 unit HS SC Last administered on 09/20/16 21:56; Admin Dose 18 UNIT; Start 09/18/16 at 21:00 Cefepime HCl (Maxipime 1gm/50 ml (Pmx)) 50 ml @ 100 mls/hr Q24H IVPB Last administered on 09/21/16 09:03; Admin Dose 100 MLS/HR; Start 09/19/16 at 09:00 Morphine Sulfate (morphine) 2 mg Q4H PRN IV PAIN LEVEL 7-10 Last administered on 09/21/16 08:55; Admin Dose 2 MG; Start 09/19/16 at 11:30 Lorazepam (Ativan) 1 mg Q6H PRN IV ANXIETY Last administered on 09/21/16 03:19 ; Admin Dose 1 MG; Start 09/19/16 at 18:30 Lactulose (Enulose) 20 gm Q6 PO Last administered on 09/21/16 13:14; Admin Dose 20 GM; Start 09/20/16 at 13:30 Midodrine (Proamatine) 5 mg TID GTB Last administered on 09/21/16 13:14; Admin Dose 5 MG; Start 09/21/16 at 06:00 Ferrous Sulfate (Ferrous Sulfate (Ec)) 325 mg TID PO Last administered on 13:14; Admin Dose 325 MG; Start 09/21/16 at 10:00 Multivitamins 30 ml 30 ml DAILY GTB ; Start 09/21/16 at 10:30 Vancomycin HCl (Vancocin) 250 ml @ 125 mls/hr Q5D IVPB ; Start 09/21/16 at 22:00 ERICK GUTHRIE MD Sep 21, 2016 17:24
[2016-09-21] MEDS: EPOETIN 3000 UNITS/ML (NON ESRD/NON ONCOLOGY) SC SCH (17:50)
[2016-09-21] MEDS: EPOETIN 2000 UNITS/ML INJ (NON ESRD/NON ONCOLOGY) SC SCH (17:52)
[2016-09-21] MEDS: VANCOMYCIN 1 GM in NS 250 ML IVPB SCH (21:38)
[2016-09-21] MEDS: INSULIN DETEMIR [LEVEMIR] 3ML CART SC SCH (21:42)
[2016-09-22] VITALS (23 sets, daily range): BP systolic 80–94; BP diastolic 41–54; PULSE 59–62; RESP 16–23
[2016-09-22] MEDS: LACTULOSE 30ML CUP PO SCH ×4 (00:23→17:39)
[2016-09-22] MEDS: ALBUTEROL 18 GM INHALER INH SCH ×6 (01:12→21:03)
[2016-09-22] MEDS: BUMETANIDE 1 MG TAB GTB SCH ×2 (06:00→17:39)
[2016-09-22] MEDS: INSULIN ASPART [NOVOLOG] 3 ML PEN SC SCH ×7 (06:34→21:00)
[2016-09-22] MEDS: MULTIVITAMINS 30 ML CUP GTB SCH (09:17)
[2016-09-22] MEDS: LACTOBACILLUS RHAMNOSUS CAP PO SCH ×2 (09:18→21:12)
[2016-09-22] MEDS: FOLIC ACID 1 MG TAB GTB SCH (09:18)
[2016-09-22] MEDS: AMIODARONE 200 MG TAB GTB SCH (09:19)
[2016-09-22] MEDS: MIDODRINE 5 MG TAB GTB SCH ×3 (09:19→21:11)
[2016-09-22] MEDS: PANTOPRAZOLE (EC) 40 MG TAB PO SCH (09:20)
[2016-09-22] MEDS: ASCORBIC ACID 500 MG TAB PO SCH ×2 (09:20→21:12)
[2016-09-22] MEDS: CEFEPIME 1GM/50 ML (PMX) 50 ML IVPB SCH (09:21)
[2016-09-22] MEDS: FERROUS SULFATE (EC) 325 MG TAB PO SCH ×3 (09:21→21:12)
[2016-09-22] MEDS: CHLORHEXIDINE GLUCONATE 15 ML UD CUP MM SCH ×2 (09:21→21:11)
--- NOTE | 2016-09-22 14:04 | PN ---
Date/Time of Note Date/Time of Note DATE: 09/22/16 TIME: 14:01 Assessment/Plan VTE Prophylaxis VTE Prophylaxis Intervention: SCD's Lines/Catheters IV C[facility]ter Type ([facility] Peripheral IV Urinary Cath still in place: Yes Reason Cath still needed: other (indicate) Assessment/Plan Chief Complaint/Hosp Course 1. Acute on chronic Congestive heart failure -Continue diuresis. -off beta-armando and JUAN inhibitor due to hypotension and renal failure, consider resuming JUAN inhibitors as renal function has improved. 2. Healthcare associated pneumonia. Resolving -Continue antibioticsx 10 days-last date 09/28/16. -Negative cultures. 2. Chronic Trach/vent dependent respiratory failure - Continue trach support, bronchodilators. Follow-up pulmonary recommendation 3. Cardiomyopathy with EF of 30% to 35%, AICD -Continue current medical management. 4. Hyperkalemia initially, now with hypokalemia. - Follow-up with renal RECS 5. Chronic hypoxic encephalopathy. - Monitor. 6. Dysphagia s/p PEG tube-now with dislodged/nonfunctional G-tube -Patient is going for G-tube replacement today. Continue tube feeds as tolerated postprocedure. 7. Ascites -Status post paracentesis with 3650. 8. Diabetes - A1c = 5.2. - continue sliding scale insulin, Levemir, aspart TID 9. Acute kidney injury on chronic kidney disease. No stable - Follow-up renal recommendations. 10. Hypertension, now with borderline hypertension- -continue antihypertensives with blood pressure parameters 11. History of quadriplegia secondary to muscular dystrophy -Monitor and supportive care 12. Anemia: Hemoglobin presently stable -Monitor for now 13. Hypernatremia -[place] via G-tube, D5W. Again, follow-up with nephrology recommendation. 15. Pulmonary hypertension. -Diuresis and oxygen. DVT prophylaxis: SCDs PUD prophylaxis: Protonix Plan: Continue current medical management. Discharge planning once G-tube is replaced and patient is able to tolerate tube feeding. Patient to be monitored by poolroom/poolhall manager after discharge for restarting on chronic anticoagulation paroxysmal atrial fibrillation. Case discussed with Problems: Subjective 24 Hr Interval Summary Free Text/Dictation G-tube was dislodged and patient is going for G-tube replacement today. Exam/Review of Systems Vital Signs Vitals Vital Signs Date Time Temp Pulse Resp B/P Pulse Ox O2 Delivery O2 Flow Rate FiO2 09/22/16 12:37 59 09/22/16 12:04 98.7 20 94/51 98 09/22/16 11:10 35 Intake and Output 09/21/16 09/21/16 09/22/16 14:59 22:59 06:59 Intake Total 850 ml 1162 ml Output Total 450 ml 400 ml Balance 400 ml 762 ml Exam General: Chronically ill looking, female on vent . HEENT: Normocephalic, Atraumatic, No laceration or hematoma; Eyes: PEERL, Conjunctiva clear, Anicteric sclera Neck: Supple without any lymphadenopathy, nontender, no JVD, no carotid bruits, trachea midline, no thyromegaly Cardiac: S1, S2 auscultated, regular rhythm and rate, no mumurs or gallop Pulmonary: Trach to vent.Chest clear to auscultation bilaterally, no adventitious breath sounds GI: Dislodged G-tube. Abdomen normal to inspection. Soft, non tender, non- distended, no masses, no rebound tenderness or guarding. Bowel sounds active on all four quadrants Genitourinary: Deferred Extremities: Quadriplegic Neurologic: Encephalopathy. Flat affect. Skin: Clean,dry, and intact. No ecchymosis, no rashes, or lesions Results Result Diagram: 09/21/16 0519 09/21/1619 Results 24 hrs Laboratory Tests Test 09/21/16 16:50 09/21/16 17:53 09/21/16 21:33 09/22/16 00:20 Stool Occult Blood NEGATIVE Bedside Glucose 148 156 129 Test 09/22/16 06:24 09/22/16 09:16 09/22/16 13:25 Bedside Glucose 155 142 145 Medications Medications Current Medications Ondansetron HCl (Zofran Inj) 4 mg Q6H PRN IV NAUSEA AND/OR VOMITING Last administered on 09/20/16 23:29; Admin Dose 4 MG; Start 09/15/16 at 06:30 Acetaminophen (Tylenol Tab) 650 mg Q6H PRN PO PAIN LEVEL 1-3 OR FEVER Last administered on 09/16/16 20:10; Admin Dose 650 MG; Start 09/15/16 at 06:30 Acetaminophen (Tylenol Supp) 650 mg Q6H PRN [place] PAIN LEVEL 1-3 OR FEVER; Start 09/15/16 at 06:30 Amiodarone HCl (Cordarone) 200 mg DAILY GTB Last administered on 09/22/16 09:19 ; Admin Dose 200 MG; Start 09/15/16 at 09:00 Bisacodyl (Dulcolax Supp) 10 mg Q24H PRN [place] CONSTIPATION; Start 09/15/16 at 06: 30 Chlorhexidine Gluconate (Peridex) 15 ml BID MM Last administered on 09/22/16 09 :21; Admin Dose 15 ML; Start 09/15/16 at 09:00 Docusate Sodium (Colace) 200 mg QHS PRN PO CONSTIPATION; Start 09/15/16 at 06:30 Lisinopril (Zestril) 2.5 mg BID GTB Last administered on 09/15/16 09:24; Admin Dose 2.5 MG; Start 09/15/16 at 09:00; Status Future Hold Pantoprazole (Protonix Tab) 40 mg DAILY PO Last administered on 09/22/16 09:20 ; Admin Dose 40 MG; Start 09/15/16 at 09:00 Epoetin Kt (Epogen (Non Esrd/Non Oncology)) 3,000 units MoWeFr@17 SC Last administered on 09/21/16 17:50; Admin Dose 3,000 UNITS; Start 09/16/16 at 17:00 Epoetin Kt (Epogen (Non Esrd/Non Oncology)) 2,000 units MoWeFr@17 SC Last administered on 09/21/16 17:52; Admin Dose 2,000 UNITS; Start 09/16/16 at 17:00 Diphenhydramine HCl (Benadryl) 25 mg Q6H PRN IV ITCHING Last administered on 17:50; Admin Dose 25 MG; Start 09/15/16 at 21:00 Tramadol HCl (Ultram) 50 mg Q6H PRN GTB PAIN LEVEL 6-10 Last administered on 21:44; Admin Dose 50 MG; Start 09/17/16 at 12:00 Miscellaneous Information 1 ea NOTE XX ; Start 09/17/16 at 12:00 Insulin Aspart (Novolog Insulin Pen) NOVOLOG *MILD* ALGORI... Q6 SC Last administered on 09/22/16 13:30; Admin Dose 1 UNIT; Start 09/18/16 at 06:00 Miscellaneous Information 1 ea NOTE XX ; Start 09/17/16 at 22:45 Glucose (Glutose) 15 gm Q15M PRN PO DECREASED GLUCOSE; Start 09/17/16 at 22:45 Glucose (Glutose) 22.5 gm Q15M PRN PO DECREASED GLUCOSE; Start 09/17/16 at 22:45 Dextrose (D50w Syringe) 25 ml Q15M PRN IV DECREASED GLUCOSE; Start 09/17/16 at 22:45 Dextrose (D50w Syringe) 50 ml Q15M PRN IV DECREASED GLUCOSE; Start 09/17/16 at 22:45 Glucagon (Glucagen) 1 mg Q15M PRN IM DECREASED GLUCOSE; Start 09/17/16 at 22:45 Glucose (Glutose) 15 gm Q15M PRN BUCCAL DECREASED GLUCOSE; Start 09/17/16 at 22: 45 Acetaminophen (Tylenol Tab) 650 mg Q4 PRN GTB PAIN AND OR ELEVATED TEMP; Start 09/18/16 at 11:30 Albuterol (Proventil 0.083% (Neb)) 2.5 mg Q3H PRN NEB WHEEZING AND SOB; Start 09/18/16 at 11:30 Ascorbic Acid (Vitamin C) 500 mg BID PO Last administered on 09/22/16 09:20; Admin Dose 500 MG; Start 09/18/16 at 21:00 Folic Acid (Folic Acid) 1 mg DAILY GTB Last administered on 09/22/16 09:18; Admin Dose 1 MG; Start 09/19/16 at 09:00 Hydroxyzine HCl (Atarax) 25 mg Q8H PRN PO ITCHING; Start 09/18/16 at 11:30 Lorazepam (Ativan) 1 mg Q8 PRN GTB ANXIETY Last administered on 09/22/16 09:17 ; Admin Dose 1 MG; Start 09/18/16 at 11:30 Magnesium Hydroxide (Milk Of Mag) 30 ml DAILY PRN GTB CONSTIPATION; Start at 11:30 Sodium Biphosphate/ Sodium Phosphate (Fleet Enema Pediatric) 66.6 ml DAILY PRN [place] CONSTIPATION; Start 09/18/16 at 11:30 Lactobacillus Acidophilus/ Rhamnosus (Culturelle) 1 cap BID PO Last administered on 09/22/16 09:18; Admin Dose 1 CAP; Start 09/18/16 at 21:00 Insulin Aspart (Novolog Insulin Pen) 5 unit TID SC Last administered on 13:30; Admin Dose 5 UNIT; Start 09/18/16 at 13:00 Insulin Detemir 18 unit 18 unit HS SC Last administered on 09/21/16 21:42; Admin Dose 18 UNIT; Start 09/18/16 at 21:00 Cefepime HCl (Maxipime 1gm/50 ml (Pmx)) 50 ml @ 100 mls/hr Q24H IVPB Last administered on 09/22/16 09:21; Admin Dose 100 MLS/HR; Start 09/19/16 at 09:00 Morphine Sulfate (morphine) 2 mg Q4H PRN IV PAIN LEVEL 7-10 Last administered on 09/21/16 08:55; Admin Dose 2 MG; Start 09/19/16 at 11:30 Lorazepam (Ativan) 1 mg Q6H PRN IV ANXIETY Last administered on 09/21/16 03:19 ; Admin Dose 1 MG; Start 09/19/16 at 18:30 Lactulose (Enulose) 20 gm Q6 PO Last administered on 09/22/16 06:00; Admin Dose 20 GM; Start 09/20/16 at 13:30 Midodrine (Proamatine) 5 mg TID GTB Last administered on 09/22/16 09:19; Admin Dose 5 MG; Start 09/21/16 at 06:00 Ferrous Sulfate (Ferrous Sulfate (Ec)) 325 mg TID PO Last administered on 09:21; Admin Dose 325 MG; Start 09/21/16 at 10:00 Multivitamins 30 ml 30 ml DAILY GTB Last administered on 09/22/16 09:17; Admin Dose 30 ML; Start 09/21/16 at 10:30 Vancomycin HCl (Vancocin) 250 ml @ 125 mls/hr Q5D IVPB Last administered on 21:38; Admin Dose 125 MLS/HR; Start 09/21/16 at 22:00 SHONDA SOUZA NP Sep 22, 2016 14:04
--- NOTE | 2016-09-22 14:13 | PN ---
Date/Time of Note Date/Time of Note DATE: 09/22/16 TIME: 14:09 Assessment/Plan VTE Prophylaxis VTE Prophylaxis Intervention: SCD's Lines/Catheters IV Catheter Type (from Nrsg): Peripheral IV Central line still needed: Yes Urinary Cath still in place: Yes Reason Cath still needed: urinary retention Assessment/Plan Assessment/Plan Assessment Malfunctioning gastrostomy tube Sepsis Chronic respiratory failure Quadriplegia H/O cardiomyopathy Plan Replace Gastrostomy tube today risks and benefit explained to family agreed with the planned procedure continue present medications Case discussed with Dr Nix further orders will depend on clinical course Subjective 24 Hr Interval Summary Free Text/Dictation * Course reviewed with RN' * Patient seen and examined * Patient seen and examined G tube malfunctioning again Exam/Review of Systems Vital Signs Vitals Vital Signs Date Time Temp Pulse Resp B/P Pulse Ox O2 Delivery O2 Flow Rate FiO2 09/22/16 12:37 59 09/22/16 12:04 98.7 20 94/51 98 09/22/16 11:10 35 Intake and Output 09/21/16 09/21/16 09/22/16 15:00 23:00 07:00 Intake Total 850 ml 1162 ml Output Total 450 ml 400 ml Balance 400 ml 762 ml Exam Constitutional: frail Neck: non-tender, supple Respiratory: clear to auscultation, normal air movement Cardiovascular: nl pulses, regular rate and rhythm Gastrointestinal: nl liver, spleen, other (g tube), soft Musculoskeletal: muscle weakness Skin: nl turgor, rash or lesions Lymph: nl lymph nodes Results Result Diagram: 09/21/16 0519 09/21/16 0519 Results 24 hrs Laboratory Tests Test 09/21/16 16:50 09/21/16 17:53 09/21/16 21:33 09/22/16 00:20 Stool Occult Blood NEGATIVE Bedside Glucose 148 156 129 Test 09/22/16 06:24 09/22/16 09:16 09/22/16 13:25 Bedside Glucose 155 142 145 Medications Medications Current Medications Ondansetron HCl (Zofran Inj) 4 mg Q6H PRN IV NAUSEA AND/OR VOMITING Last administered on 09/20/16t 23:29; Admin Dose 4 MG; Start 09/15/16 at 06:30 Acetaminophen (Tylenol Tab) 650 mg Q6H PRN PO PAIN LEVEL 1-3 OR FEVER Last administered on 09/16/16 20:10; Admin Dose 650 MG; Start 09/15/16 at 06:30 Acetaminophen (Tylenol Supp) 650 mg Q6H PRN [place] PAIN LEVEL 1-3 OR FEVER; Start 09/15/16 at 06:30 Amiodarone HCl (Cordarone) 200 mg DAILY GTB Last administered on 09/22/16 09:19 ; Admin Dose 200 MG; Start 09/15/16 at 09:00 Bisacodyl (Dulcolax Supp) 10 mg Q24H PRN [place] CONSTIPATION; Start 09/15/16 at 06: 30 Chlorhexidine Gluconate (Peridex) 15 ml BID MM Last administered on 09/22/16 09 :21; Admin Dose 15 ML; Start 09/15/16 at 09:00 Docusate Sodium (Colace) 200 mg QHS PRN PO CONSTIPATION; Start 09/15/16 at 06:30 Lisinopril (Zestril) 2.5 mg BID GTB Last administered on 09/15/16 09:24; Admin Dose 2.5 MG; Start 09/15/16 at 09:00; Status Future hold Pantoprazole (Protonix Tab) 40 mg DAILY PO Last administered on 09/22/16 09:20 ; Admin Dose 40 MG; Start 09/15/16 at 09:00 Epoetin Kt (Epogen (Non Esrd/Non Oncology)) 3,000 units MoWeFr@17 SC Last administered on 09/21/16 17:50; Admin Dose 3,000 UNITS; Start 09/16/16 at 17:00 Epoetin Kt (Epogen (Non Esrd/Non Oncology)) 2,000 units MoWeFr@17 SC Last administered on 09/21/16 17:52; Admin Dose 2,000 UNITS; Start 09/16/16 at 17:00 Diphenhydramine HCl (Benadryl) 25 mg Q6H PRN IV ITCHING Last administered on 17:50; Admin Dose 25 MG; Start 09/15/16 at 21:00 Tramadol HCl (Ultram) 50 mg Q6H PRN GTB PAIN LEVEL 6-10 Last administered on 21:44; Admin Dose 50 MG; Start 09/17/16 at 12:00 Miscellaneous Information 1 ea NOTE XX ; Start 09/17/16 at 12:00 Insulin Aspart (Novolog Insulin Pen) NOVOLOG *MILD* ALGORI... Q6 SC Last administered on 09/22/16 13:30; Admin Dose 1 UNIT; Start 09/18/16 at 06:00 Miscellaneous Information 1 ea NOTE XX ; Start 09/17/16 at 22:45 Glucose (Glutose) 15 gm Q15M PRN PO DECREASED GLUCOSE; Start 09/17/16 at 22:45 Glucose (Glutose) 22.5 gm Q15M PRN PO DECREASED GLUCOSE; Start 09/17/16 at 22:45 Dextrose (D50w Syringe) 25 ml Q15M PRN IV DECREASED GLUCOSE; Start 09/17/16 at 22:45 Dextrose (D50w Syringe) 50 ml Q15M PRN IV DECREASED GLUCOSE; Start 09/17/16 at 22:45 Glucagon (Glucagen) 1 mg Q15M PRN IM DECREASED GLUCOSE; Start 09/17/16 at 22:45 Glucose (Glutose) 15 gm Q15M PRN BUCCAL DECREASED GLUCOSE; Start 09/17/16 at 22: 45 Acetaminophen (Tylenol Tab) 650 mg Q4 PRN GTB PAIN AND OR ELEVATED TEMP; Start 09/18/16 at 11:30 Albuterol (Proventil 0.083% (Neb)) 2.5 mg Q3H PRN NEB WHEEZING AND SOB; Start 09/18/16 at 11:30 Ascorbic Acid (Vitamin C) 500 mg BID PO Last administered on 09/22/16 09:20; Admin Dose 500 MG; Start 09/18/16 at 21:00 Folic Acid (Folic Acid) 1 mg DAILY GTB Last administered on 09/22/16 09:18; Admin Dose 1 MG; Start 09/19/16 at 09:00 Hydroxyzine HCl (Atarax) 25 mg Q8H PRN PO ITCHING; Start 09/18/16 at 11:30 Lorazepam (Ativan) 1 mg Q8 PRN GTB ANXIETY Last administered on 09/22/16 09:17 ; Admin Dose 1 MG; Start 09/18/16 at 11:30 Magnesium Hydroxide (Milk Of Mag) 30 ml DAILY PRN GTB CONSTIPATION; Start at 11:30 Sodium Biphosphate/ Sodium Phosphate (Fleet Enema Pediatric) 66.6 ml DAILY PRN [place] CONSTIPATION; Start 09/18/16 at 11:30 Lactobacillus Acidophilus/ Rhamnosus (Culturelle) 1 cap BID PO Last administered on 09/22/16 09:18; Admin Dose 1 CAP; Start 09/18/16 at 21:00 Insulin Aspart (Novolog Insulin Pen) 5 unit TID SC Last administered on 13:30; Admin Dose 5 UNIT; Start 09/18/16 at 13:00 Insulin Detemir 18 unit 18 unit HS SC Last administered on 09/21/16 21:42; Admin Dose 18 UNIT; Start 09/18/16 at 21:00 Cefepime HCl (Maxipime 1gm/50 ml (Pmx)) 50 ml @ 100 mls/hr Q24H IVPB Last administered on 09/22/16 09:21; Admin Dose 100 MLS/HR; Start 09/19/16 at 09:00 Morphine Sulfate (morphine) 2 mg Q4H PRN IV PAIN LEVEL 7-10 Last administered on 09/21/16 08:55; Admin Dose 2 MG; Start 09/19/16 at 11:30 Lorazepam (Ativan) 1 mg Q6H PRN IV ANXIETY Last administered on 09/21/16 03:19 ; Admin Dose 1 MG; Start 09/19/16 at 18:30 Lactulose (Enulose) 20 gm Q6 PO Last administered on 09/22/16 06:00; Admin Dose 20 GM; Start 09/20/16 at 13:30 Midodrine (Proamatine) 5 mg TID GTB Last administered on 09/22/16 09:19; Admin Dose 5 MG; Start 09/21/16 at 06:00 Ferrous Sulfate (Ferrous Sulfate (Ec)) 325 mg TID PO Last administered on 09:21; Admin Dose 325 MG; Start 09/21/16 at 10:00 Multivitamins 30 ml 30 ml DAILY GTB Last administered on 09/22/16 09:17; Admin Dose 30 ML; Start 09/21/16 at 10:30 Vancomycin HCl (Vancocin) 250 ml @ 125 mls/hr Q5D IVPB Last administered on 21:38; Admin Dose 125 MLS/HR; Start 09/21/16 at 22:00 MARGARITA BARNES NP Sep 22, 2016 14:12
[2016-09-22 15:13] LABS: ABNORMAL IP MESSAGE 1; BASOPHIL # 0.1 10^3/ul (0.0-0.1); BASOPHILS % 0.5 % (0.0-2.0); EOSINOPHILS % 7.3 % (0.0-7.0); HEMATOCRIT 30.5 % (37.0-47.0); HEMOGLOBIN 8.8 g/dl (12.0-16.0); LYMPHOCYTES # 0.9 10^3/ul (0.8-2.9); LYMPHOCYTES % 6.6 % (15.0-51.0); MEAN CORPUSCULAR HEMOGLOBIN 28.8 pg (29.0-33.0); MEAN CORPUSCULAR HGB CONC 28.9 g/dl (32.0-37.0); MEAN CORPUSCULAR VOLUME 99.7 fl (82.0-101.0); MEAN PLATELET VOLUME 10.8 fl (7.4-10.4); MONOCYTE # 0.7 10^3/ul (0.3-0.9); MONOCYTES % 5.5 % (0.0-11.0); NEUTROPHIL # 10.6 10^3/ul (1.6-7.5); NEUTROPHILS % 79.1 % (39.0-77.0); NUCLEATED RED BLOOD CELLS% 0.3 /100WBC (0.0-0.0); PLATELET COUNT 301 10^3/UL (140-415); RED BLOOD COUNT 3.06 10^6/ul (4.20-5.40); RED CELL DISTRIBUTION WIDTH 19.8 % (11.5-14.5); WHITE BLOOD COUNT 13.4 10^3/ul (4.8-10.8)
[2016-09-22 15:27] LABS: POSITIVE DIFF @See below
[2016-09-22 15:30] LABS: CALCIUM 8.8 mg/dl (8.4-10.2); CREATININE 0.58 mg/dl (0.44-1.00); POTASSIUM 4.3 mmol/L (3.5-5.1)
[2016-09-22 15:59] LABS: MAGNESIUM 2.3 mg/dl (1.7-2.5); PHOSPHORUS 4.1 mg/dl (2.5-4.9)
--- NOTE | 2016-09-22 16:16 | CONS ---
Date/Time of Note Date/Time of Note DATE: 09/22/16 TIME: 16:15 Consult Date/Type/Reason Admit Date/Time Sep 15, 2016 at 01:59 Initial Consult Date 09/18/16 Type of Consultation: Pulmonary Subjective G-tube dislodged. Objective Vital Signs Date Time Temp Pulse Resp B/P Pulse Ox O2 Delivery O2 Flow Rate FiO2 09/22/16 15:10 60 21 97 35 09/22/16 14:53 98.7 91/52 Intake and Output 09/21/16 09/21/16 09/22/16 14:59 22:59 06:59 Intake Total 850 ml 1162 ml Output Total 450 ml 400 ml Balance 400 ml 762 ml Exam PHYSICAL EXAMINATION GENERAL: Chronically ill appearing lady on mechanical ventilation VITAL SIGNS: see below. HEENT: Pupils equal, round, and reactive to light. Tracheostomy site clean and intact. CARDIAC: S1, S2, 3/6 systolic ejection murmur CHEST: Diminished air entry bilaterally. ABDOMEN: Mildly distended. Bowel sounds present no guarding or rebound EXTREMITIES: No cyanosis, clubbing edema +1 NEUROLOGIC: Generalized weakness Results/Medications Result Diagram: 09/22/16 1501 09/22/16 1422 Results 24 hrs Laboratory Tests Test 09/21/16 16:50 09/21/16 17:53 09/21/16 21:33 09/22/16 00:20 Stool Occult Blood NEGATIVE Bedside Glucose 148 156 129 Test 09/22/16 06:24 09/22/16 09:16 09/22/16 13:25 09/22/16 14:22 Bedside Glucose 155 142 145 Sodium Level 144 Potassium Level 4.3 Chloride Level 108 Carbon Dioxide Level 22 Anion Gap 18 H Blood Urea Nitrogen 80 H Creatinine 0.58 Glucose Level 118 # Calcium Level 8.8 Phosphorus Level 4.1 Magnesium Level 2.3 Test 09/22/16 15:01 White Blood Count 13.4 #H Red Blood Count 3.06 L Hemoglobin 8.8 L Hematocrit 30.5 L Mean Corpuscular Volume 99.7 Mean Corpuscular Hemoglobin 28.8 L Mean Corpuscular Hemoglobin Concent 28.9 L Red Cell Distribution Width 19.8 H Platelet Count 301 Mean Platelet Volume 10.8 H Neutrophils % 79.1 H Lymphocytes % 6.6 L Monocytes % 5.5 Eosinophils % 7.3 H Basophils % 0.5 Nucleated Red Blood Cells % 0.3 H Neutrophils # 10.6 H Lymphocytes # 0.9 Monocytes # 0.7 Eosinophils # 1.0 H Basophils # 0.1 Nucleated Red Blood Cells # 0.0 Medications Current Medications Ondansetron HCl (Zofran Inj) 4 mg Q6H PRN IV NAUSEA AND/OR VOMITING Last administered on 09/20/16 23:29; Admin Dose 4 MG; Start 09/15/16 at 06:30 Acetaminophen (Tylenol Tab) 650 mg Q6H PRN PO PAIN LEVEL 1-3 OR FEVER Last administered on 09/16/16 20:10; Admin Dose 650 MG; Start 09/15/16 at 06:30 Acetaminophen (Tylenol Supp) 650 mg Q6H PRN [place] PAIN LEVEL 1-3 OR FEVER; Start 09/15/16 at 06:30 Amiodarone HCl (Cordarone) 200 mg DAILY GTB Last administered on 09/22/16 09:19 ; Admin Dose 200 MG; Start 09/15/16 at 09:00 Bisacodyl (Dulcolax Supp) 10 mg Q24H PRN [place] CONSTIPATION; Start 09/15/16 at 06: 30 Chlorhexidine Gluconate (Peridex) 15 ml BID MM Last administered on 09/22/16 09 :21; Admin Dose 15 ML; Start 09/15/16 at 09:00 Docusate Sodium (Colace) 200 mg QHS PRN PO CONSTIPATION; Start 09/15/16 at 06:30 Lisinopril (Zestril) 2.5 mg BID GTB Last administered on 09/15/16 09:24; Admin Dose 2.5 MG; Start 09/15/16 at 09:00; Status Future hold Pantoprazole (Protonix Tab) 40 mg DAILY PO Last administered on 09/22/16 09:20 ; Admin Dose 40 MG; Start 09/15/16 at 09:00 Epoetin Kt (Epogen (Non Esrd/Non Oncology)) 3,000 units MoWeFr@17 SC Last administered on 09/21/16 17:50; Admin Dose 3,000 UNITS; Start 09/16/16 at 17:00 Epoetin Kt (Epogen (Non Esrd/Non Oncology)) 2,000 units MoWeFr@17 SC Last administered on 09/21/16 17:52; Admin Dose 2,000 UNITS; Start 09/16/16 at 17:00 Diphenhydramine HCl (Benadryl) 25 mg Q6H PRN IV ITCHING Last administered on 17:50; Admin Dose 25 MG; Start 09/15/16 at 21:00 Tramadol HCl (Ultram) 50 mg Q6H PRN GTB PAIN LEVEL 6-10 Last administered on 21:44; Admin Dose 50 MG; Start 09/17/16 at 12:00 Miscellaneous Information 1 ea NOTE XX ; Start 09/17/16 at 12:00 Insulin Aspart (Novolog Insulin Pen) NOVOLOG *MILD* ALGORI... Q6 SC Last administered on 09/22/16 13:30; Admin Dose 1 UNIT; Start 09/18/16 at 06:00 Miscellaneous Information 1 ea NOTE XX ; Start 09/17/16 at 22:45 Glucose (Glutose) 15 gm Q15M PRN PO DECREASED GLUCOSE; Start 09/17/16 at 22:45 Glucose (Glutose) 22.5 gm Q15M PRN PO DECREASED GLUCOSE; Start 09/17/16 at 22:45 Dextrose (D50w Syringe) 25 ml Q15M PRN IV DECREASED GLUCOSE; Start 09/17/16 at 22:45 Dextrose (D50w Syringe) 50 ml Q15M PRN IV DECREASED GLUCOSE; Start 09/17/16 at 22:45 Glucagon (Glucagen) 1 mg Q15M PRN IM DECREASED GLUCOSE; Start 09/17/16 at 22:45 Glucose (Glutose) 15 gm Q15M PRN BUCCAL DECREASED GLUCOSE; Start 09/17/16 at 22: 45 Acetaminophen (Tylenol Tab) 650 mg Q4 PRN GTB PAIN AND OR ELEVATED TEMP; Start 09/18/16 at 11:30 Albuterol (Proventil 0.083% (Neb)) 2.5 mg Q3H PRN NEB WHEEZING AND SOB; Start 09/18/16 at 11:30 Ascorbic Acid (Vitamin C) 500 mg BID PO Last administered on 09/22/16 09:20; Admin Dose 500 MG; Start 09/18/16 at 21:00 Folic Acid (Folic Acid) 1 mg DAILY GTB Last administered on 09/22/16 09:18; Admin Dose 1 MG; Start 09/19/16 at 09:00 Hydroxyzine HCl (Atarax) 25 mg Q8H PRN PO ITCHING; Start 09/18/16 at 11:30 Lorazepam (Ativan) 1 mg Q8 PRN GTB ANXIETY Last administered on 09/22/16 09:17 ; Admin Dose 1 MG; Start 09/18/16 at 11:30 Magnesium Hydroxide (Milk Of Mag) 30 ml DAILY PRN GTB CONSTIPATION; Start at 11:30 Sodium Biphosphate/ Sodium Phosphate (Fleet Enema Pediatric) 66.6 ml DAILY PRN [place] CONSTIPATION; Start 09/18/16 at 11:30 Lactobacillus Acidophilus/ Rhamnosus (Culturelle) 1 cap BID PO Last administered on 09/22/16 09:18; Admin Dose 1 CAP; Start 09/18/16 at 21:00 Insulin Aspart (Novolog Insulin Pen) 5 unit TID SC Last administered on 13:30; Admin Dose 5 UNIT; Start 09/18/16 at 13:00 Insulin Detemir 18 unit 18 unit HS SC Last administered on 09/21/16 21:42; Admin Dose 18 UNIT; Start 09/18/16 at 21:00 Cefepime HCl (Maxipime 1gm/50 ml (Pmx)) 50 ml @ 100 mls/hr Q24H IVPB Last administered on 09/22/16 09:21; Admin Dose 100 MLS/HR; Start 09/19/16 at 09:00 Morphine Sulfate (morphine) 2 mg Q4H PRN IV PAIN LEVEL 7-10 Last administered on 09/21/16 08:55; Admin Dose 2 MG; Start 09/19/16 at 11:30 Lorazepam (Ativan) 1 mg Q6H PRN IV ANXIETY Last administered on 09/21/16 03:19 ; Admin Dose 1 MG; Start 09/19/16 at 18:30 Lactulose (Enulose) 20 gm Q6 PO Last administered on 09/22/16 06:00; Admin Dose 20 GM; Start 09/20/16 at 13:30 Midodrine (Proamatine) 5 mg TID GTB Last administered on 09/22/16 09:19; Admin Dose 5 MG; Start 09/21/16 at 06:00 Ferrous Sulfate (Ferrous Sulfate (Ec)) 325 mg TID PO Last administered on 09:21; Admin Dose 325 MG; Start 09/21/16 at 10:00 Multivitamins 30 ml 30 ml DAILY GTB Last administered on 09/22/16 09:17; Admin Dose 30 ML; Start 09/21/16 at 10:30 Vancomycin HCl (Vancocin) 250 ml @ 125 mls/hr Q5D IVPB Last administered on 21:38; Admin Dose 125 MLS/HR; Start 09/21/16 at 22:00 Assessment/Plan Chief Complaint/Hosp Course Additional Assessment/Plan IMP: 1. VDRF 2. HCAP 3. CHF 4. CMY 5. Encephalopathy 6. Hypokalemia RECS: 1. Vent support 2. BDs/CPT 3. Abx per ID 4. GI evaluation to replace G-tube Discharge planning once G-tube addressed. Problems: YUNIEL JACK MD, [facility] Sep 22, 2016 16:16
[2016-09-22] MEDS: morphine 2 MG INJ IV PRN (18:57)
--- NOTE | 2016-09-22 19:21 | QN ---
Documentation Comment Malfunctioning gastrostomy tube was removed with the traction without evidence of complication A [place] 20 -20 cc balloon replacement gastrostomy tube was inserted without difficulty. UMM MARQUEZ MD Sep 22, 2016 19:21
--- NOTE | 2016-09-22 19:25 | CONS ---
Date/Time of Note Date/Time of Note DATE: 09/22/16 TIME: 19:23 Assessment/Plan Assessment/Plan Chief Complaint/Hosp Course Assessment: Acute on chronic systolic heart failure - improved Cardiomyopathy, LVEF 20-25% - unclear etiology, unclear if patient has ever had ischemic workup, possibly due to muscular dystrophy Acute kidney injury on chronic kidney disease Healthcare-associated pneumonia - on antibiotics Chronic ventilator-dependent respiratory failure Muscular dystrophy Paroxysmal atrial fibrillation and atrial flutter History of ventricular tachycardia (Torsades de pointes) - status post Bi-V ICD upgrade January 2015 (CX) Diabetes mellitus Anemia of chronic disease History of right lower extremity deep vein thrombosis Severe peripheral arterial disease - prior CT LE angio with evidence of GEOSCIENTIST SFA and severe disease of popliteal Recommendations: - echocardiogram showed LVEF 20-25%, RVSP 63 mmHg - continue Bumex 1mg BID - continue amiodarone 200mg daily - off beta-armando and JUAN inhibitor due to borderline blood pressures and renal failure, resume for systolic heart failure as able - consider restarting on chronic anticoagulation paroxysmal atrial fibrillation and history of deep vein thrombosis when clinically more stable Problems: Consultation Date/Type/Reason Admit Date/Time Sep 15, 2016 at 01:59 Initial Consult Date 09/18/16 Type of Consultation: Cardiology 24 HR Interval Summary Free Text/Dictation G-tube dislodged and has been replaced. Otherwise, no acute events. Detailed Summary Additional Comments Unable to obtain review of systems, patient is on ventilator. Exam/Review of Systems Vital Signs Vitals Vital Signs Date Time Temp Pulse Resp B/P Pulse Ox O2 Delivery O2 Flow Rate FiO2 09/22/16 17:10 60 18 99 35 09/22/16 14:53 98.7 91/52 Intake and Output 09/21/16 09/21/16 09/22/16 15:00 23:00 07:00 Intake Total 850 ml 1162 ml Output Total 450 ml 400 ml Balance 400 ml 762 ml Exam Constitutional: No alert, No distress Psych: No nl mood/affect, No no complaints Head: atraumatic, normocephalic Eyes: nl conjunctiva, nl lids ENMT: nl external ears & nose, nl nasal mucosa & septum Neck: other (tracheostomy) Respiratory: crackles/rales, diminished breath sounds Cardiovascular: irregular rhythm Gastrointestinal: non-tender, soft Extremities: No clubbing, No cyanosis Neurological: No nl mental status, No nl speech Results Result Diagram: 09/22/16 1501 09/22/16 1422 Results 24 hrs Laboratory Tests Test 09/21/16 21:33 09/22/16 00:20 09/22/16 06:24 09/22/16 09:16 Bedside Glucose 156 129 155 142 Test 09/22/16 13:25 09/22/16 14:22 09/22/16 15:01 09/22/16 17:42 Bedside Glucose 145 104 Sodium Level 144 Potassium Level 4.3 Chloride Level 108 Carbon Dioxide Level 22 Anion Gap 18 H Blood Urea Nitrogen 80 H Creatinine 0.58 Glucose Level 118 # Calcium Level 8.8 Phosphorus Level 4.1 Magnesium Level 2.3 White Blood Count 13.4 #H Red Blood Count 3.06 L Hemoglobin 8.8 L Hematocrit 30.5 L Mean Corpuscular Volume 99.7 Mean Corpuscular Hemoglobin 28.8 L Mean Corpuscular Hemoglobin Concent 28.9 L Red Cell Distribution Width 19.8 H Platelet Count 301 Mean Platelet Volume 10.8 H Neutrophils % 79.1 H Lymphocytes % 6.6 L Monocytes % 5.5 Eosinophils % 7.3 H Basophils % 0.5 Nucleated Red Blood Cells % 0.3 H Neutrophils # 10.6 H Lymphocytes # 0.9 Monocytes # 0.7 Eosinophils # 1.0 H Basophils # 0.1 Nucleated Red Blood Cells # 0.0 Medications Medications Current Medications Ondansetron HCl (Zofran Inj) 4 mg Q6H PRN IV NAUSEA AND/OR VOMITING Last administered on 09/20/16 23:29; Admin Dose 4 MG; Start 09/15/16 at 06:30 Acetaminophen (Tylenol Tab) 650 mg Q6H PRN PO PAIN LEVEL 1-3 OR FEVER Last administered on 09/16/16 20:10; Admin Dose 650 MG; Start 09/15/16 at 06:30 Acetaminophen (Tylenol Supp) [address] PAIN LEVEL 1-3 OR FEVER; Start 09/15/16 at 06:30 Amiodarone HCl (Cordarone) 200 mg DAILY GTB Last administered on 09/22/16 09:19 ; Admin Dose 200 MG; Start 09/15/16 at 09:00 Bisacodyl (Dulcolax Supp) [address] CONSTIPATION; Start 09/15/16 at 06: 30 Chlorhexidine Gluconate (Peridex) 15 ml BID MM Last administered on 09/22/16 09 :21; Admin Dose 15 ML; Start 09/15/16 at 09:00 Docusate Sodium (Colace) 200 mg QHS PRN PO CONSTIPATION; Start 09/15/16 at 06:30 Lisinopril (Zestril) 2.5 mg BID GTB Last administered on 09/15/16 09:24; Admin Dose 2.5 MG; Start 09/15/16 at 09:00; Status Future hold Pantoprazole (Protonix Tab) 40 mg DAILY PO Last administered on 09/22/16 09:20 ; Admin Dose 40 MG; Start 09/15/16 at 09:00 Epoetin Kt (Epogen (Non Esrd/Non Oncology)) 3,000 units MoWeFr@17 SC Last administered on 09/21/16 17:50; Admin Dose 3,000 UNITS; Start 09/16/16 at 17:00 Epoetin Kt (Epogen (Non Esrd/Non Oncology)) 2,000 units MoWeFr@17 SC Last administered on 09/21/16 17:52; Admin Dose 2,000 UNITS; Start 09/16/16 at 17:00 Diphenhydramine HCl (Benadryl) 25 mg Q6H PRN IV ITCHING Last administered on 17:50; Admin Dose 25 MG; Start 09/15/16 at 21:00 Tramadol HCl (Ultram) 50 mg Q6H PRN GTB PAIN LEVEL 6-10 Last administered on 21:44; Admin Dose 50 MG; Start 09/17/16 at 12:00 Miscellaneous Information 1 ea NOTE XX ; Start 09/17/16 at 12:00 Insulin Aspart (Novolog Insulin Pen) NOVOLOG *MILD* ALGORI... Q6 SC Last administered on 09/22/16 13:30; Admin Dose 1 UNIT; Start 09/18/16 at 06:00 Miscellaneous Information 1 ea NOTE XX ; Start 09/17/16 at 22:45 Glucose (Glutose) 15 gm Q15M PRN PO DECREASED GLUCOSE; Start 09/17/16 at 22:45 Glucose (Glutose) 22.5 gm Q15M PRN PO DECREASED GLUCOSE; Start 09/17/16 at 22:45 Dextrose (D50w Syringe) 25 ml Q15M PRN IV DECREASED GLUCOSE; Start 09/17/16 at 22:45 Dextrose (D50w Syringe) 50 ml Q15M PRN IV DECREASED GLUCOSE; Start 09/17/16 at 22:45 Glucagon (Glucagen) 1 mg Q15M PRN IM DECREASED GLUCOSE; Start 09/17/16 at 22:45 Glucose (Glutose) 15 gm Q15M PRN BUCCAL DECREASED GLUCOSE; Start 09/17/16 at 22: 45 Acetaminophen (Tylenol Tab) 650 mg Q4 PRN GTB PAIN AND OR ELEVATED TEMP; Start 09/18/16 at 11:30 Albuterol (Proventil 0.083% (Neb)) 2.5 mg Q3H PRN NEB WHEEZING AND SOB; Start 09/18/16 at 11:30 Ascorbic Acid (Vitamin C) 500 mg BID PO Last administered on 09/22/16 09:20; Admin Dose 500 MG; Start 09/18/16 at 21:00 Folic Acid (Folic Acid) 1 mg DAILY GTB Last administered on 09/22/16 09:18; Admin Dose 1 MG; Start 09/19/16 at 09:00 Hydroxyzine HCl (Atarax) 25 mg Q8H PRN PO ITCHING; Start 09/18/16 at 11:30 Lorazepam (Ativan) 1 mg Q8 PRN GTB ANXIETY Last administered on 09/22/16 09:17 ; Admin Dose 1 MG; Start 09/18/16 at 11:30 Magnesium Hydroxide (Milk Of Mag) 30 ml DAILY PRN GTB CONSTIPATION; Start at 11:30 Sodium Biphosphate/ Sodium Phosphate (Fleet Enema Pediatric) 66.[address] CONSTIPATION; Start 09/18/16 at 11:30 Lactobacillus Acidophilus/ Rhamnosus (Culturelle) 1 cap BID PO Last administered on 09/22/16 09:18; Admin Dose 1 CAP; Start 09/18/16 at 21:00 Insulin Aspart (Novolog Insulin Pen) 5 unit TID SC Last administered on 13:30; Admin Dose 5 UNIT; Start 09/18/16 at 13:00 Insulin Detemir 18 unit 18 unit HS SC Last administered on 09/21/16 21:42; Admin Dose 18 UNIT; Start 09/18/16 at 21:00 Cefepime HCl (Maxipime 1gm/50 ml (Pmx)) 50 ml @ 100 mls/hr Q24H IVPB Last administered on 09/22/16 09:21; Admin Dose 100 MLS/HR; Start 09/19/16 at 09:00 Morphine Sulfate (morphine) 2 mg Q4H PRN IV PAIN LEVEL 7-10 Last administered on 09/22/16 18:57; Admin Dose 2 MG; Start 09/19/16 at 11:30 Lorazepam (Ativan) 1 mg Q6H PRN IV ANXIETY Last administered on 09/21/16 03:19 ; Admin Dose 1 MG; Start 09/19/16 at 18:30 Lactulose (Enulose) 20 gm Q6 PO Last administered on 09/22/16 06:00; Admin Dose 20 GM; Start 09/20/16 at 13:30 Midodrine (Proamatine) 5 mg TID GTB Last administered on 09/22/16 09:19; Admin Dose 5 MG; Start 09/21/16 at 06:00 Ferrous Sulfate (Ferrous Sulfate (Ec)) 325 mg TID PO Last administered on 09:21; Admin Dose 325 MG; Start 09/21/16 at 10:00 Multivitamins 30 ml 30 ml DAILY GTB Last administered on 09/22/16 09:17; Admin Dose 30 ML; Start 09/21/16 at 10:30 Vancomycin HCl (Vancocin) 250 ml @ 125 mls/hr Q5D IVPB Last administered on 21:38; Admin Dose 125 MLS/HR; Start 09/21/16 at 22:00 ERICK GUTHRIE MD Sep 22, 2016 19:25
--- NOTE | 2016-09-22 20:17 | PN ---
DATE: 09/22/2016 SUBJECTIVE DATA: The patient is stable. No events overnight. No fevers, chills, nausea, vomiting. OBJECTIVE DATA: VITAL SIGNS: Blood pressure is 89/41, respirations 20, pulse 64, temperature 98.1. I's and O's:Patient had 2 L in, 850 out. HEENT: Head is normocephalic. NECK: Supple. ABDOMEN: Regular rate. LUNGS: Have diminished breath sounds at the base. ABDOMEN: Soft, nontender to palpation. No rebound or guarding. EXTREMITIES: Negative for clubbing, cyanosis. Positive edema. DERMATOLOGIC: No rashes. MUSCULOSKELETAL: No joint effusion. NEUROLOGIC: No change in exam. MEDICATIONS: Reviewed. LABORATORY AND DIAGNOSTIC DATA: Currently pending. ASSESSMENT AND PLAN: 1. Nonoliguric acute kidney injury on top of chronic kidney disease, stage 3, with a baseline creatinine of 0.6 mg/dL. The etiology of acute kidney injury secondary to hemodynamics. Patient's renal functions at baseline. At this point, continue current treatment plan and supportive care. Renally dose all meds. Patient's azotemia has been improving on a low potassium diet. 2. Chronic kidney disease. Etiology may be likely multifactorial. Please note, the patient's creatinine is grossly overestimated. Patient's estimated glomerular filtration rate due to significant muscular wasting. At this point, continue to treat acute kidney injury as stated above. 3. Hypokalemia. Continue to monitor and replete. 4. Hyponatremia. Continue free water flushes of 300 mL q.4 hours. 5. Mineral bone disorder. Continue to monitor calcium and phosphorus levels. 6. Anemia. Monitor H and H levels. 7. Sepsis secondary to healthcare-associated pneumonia. Continue current antibiotic regimen. 8. Ventilatory-dependent respiratory failure. Vent settings were reviewed. Arterial blood gases reviewed. Continue to monitor. Follow up with Pulmonary. 9. History of cardiomyopathy. Continue current medical management. Follow up with Cardiology. 10. Dysphagia, status post percutaneous endoscopic gastrostomy. Continue tube feeding. 11. Quadriplegia secondary to muscular dystrophy. Continue to monitor. 12. Hypertension. Monitor closely. Continue parameters on blood pressure medication. 13. Acute on chronic congestive heart failure. Continue current diuretic regimen per Cardiology. Dictated By: Raymon Giordano DO /[email or web address]/quin /Document#: [id number]
[2016-09-22] MEDS: LISINOPRIL 5 MG TAB GTB SCH (21:00)
[2016-09-22] MEDS: INSULIN DETEMIR [LEVEMIR] 3ML CART SC SCH (21:13)
[2016-09-23] VITALS (27 sets, daily range): BP systolic 80–113; BP diastolic 33–57; PULSE 59–61; RESP 17–21
[2016-09-23] MEDS: LACTULOSE 30ML CUP PO SCH ×4 (00:59→17:19)
[2016-09-23] MEDS: ALBUTEROL 18 GM INHALER INH SCH ×6 (01:00→20:20)
[2016-09-23] MEDS: INSULIN ASPART [NOVOLOG] 3 ML PEN SC SCH ×7 (05:26→20:58)
[2016-09-23] MEDS: BUMETANIDE 1 MG TAB GTB SCH (06:00)
[2016-09-23 08:05] LABS: CALCIUM 8.6 mg/dl (8.4-10.2); CREATININE 0.66 mg/dl (0.44-1.00); MAGNESIUM 2.2 mg/dl (1.7-2.5); PHOSPHORUS 4.4 mg/dl (2.5-4.9); POTASSIUM 3.9 mmol/L (3.5-5.1)
[2016-09-23] MEDS: AMIODARONE 200 MG TAB GTB SCH (08:29)
[2016-09-23] MEDS: CEFEPIME 1GM/50 ML (PMX) 50 ML IVPB SCH (08:30)
[2016-09-23] MEDS: FOLIC ACID 1 MG TAB GTB SCH (08:35)
[2016-09-23] MEDS: ASCORBIC ACID 500 MG TAB PO SCH ×2 (08:35→20:38)
[2016-09-23] MEDS: MULTIVITAMINS 30 ML CUP GTB SCH (08:35)
[2016-09-23] MEDS: FERROUS SULFATE (EC) 325 MG TAB PO SCH ×3 (08:35→20:37)
[2016-09-23] MEDS: PANTOPRAZOLE (EC) 40 MG TAB PO SCH (08:35)
[2016-09-23] MEDS: MIDODRINE 5 MG TAB GTB SCH ×3 (08:36→20:37)
[2016-09-23] MEDS: CHLORHEXIDINE GLUCONATE 15 ML UD CUP MM SCH ×2 (08:36→20:35)
[2016-09-23] MEDS: LISINOPRIL 5 MG TAB GTB SCH ×2 (08:36→20:38)
[2016-09-23] MEDS: LACTOBACILLUS RHAMNOSUS CAP PO SCH ×2 (08:36→20:37)
--- NOTE | 2016-09-23 09:51 | PN ---
Date/Time of Note Date/Time of Note DATE: 09/23/16 TIME: 09:45 Assessment/Plan VTE Prophylaxis VTE Prophylaxis Intervention: SCD's Lines/Catheters IV Catheter Type (from Nrs): Peripheral IV Urinary Cath still in place: Yes Reason Cath still needed: other (indicate) Assessment/Plan Chief Complaint/Hosp Course 1. Acute on chronic Congestive heart failure -Continue diuresis. -off beta-armando and JUAN inhibitor due to hypotension and renal failure, consider resuming JUAN inhibitors as renal function has improved. 2. Healthcare associated pneumonia. Resolving -Continue antibioticsx 10 days-last date 09/28/16. -Negative cultures. 2. Chronic Trach/vent dependent respiratory failure - Continue trach support, bronchodilators. Follow-up pulmonary recommendation 3. Cardiomyopathy with EF of 30% to 35%, AICD -Continue current medical management. 4. Delia Glabrata UTI with <10,000 cc. -Voriconazole Gtube x 7days 5. Chronic hypoxic encephalopathy. - Monitor. 6. Dysphagia dislodged/nonfunctional G-tube. Status post gtube replacement 09/22 -On tube feeds-tolerates -Water flush and Gtube care Qshift to prevent further dislodgment/malfxn 7. Ascites. Stable -Status post paracentesis with 3650. 8. Diabetes - A1c = 5.2. - continue sliding scale insulin, Levemir, aspart TID 9. Acute kidney injury on chronic kidney disease. No stable - Follow-up renal recommendations. 10. Hypertension, now with borderline hypertension- -continue antihypertensives with blood pressure parameters-Defer cards for further management. 11. History of quadriplegia secondary to muscular dystrophy -Monitor and supportive care 12. Anemia: Hemoglobin presently stable -Monitor for now 13. Hypernatremia -Freewater via G-tube, D5W. Again, follow-up with nephrology recommendation. 15. Pulmonary hypertension. -Diuresis and oxygen. 16.Hyperkalemia initially, now with hypokalemia. Resolved DVT prophylaxis: SCDs PUD prophylaxis: Protonix Plan: Continue current medical management. Discharge planning once cleared from cards as patient still with borderline hypotension. Patient to be monitored by stock analyst after discharge for restarting on chronic anticoagulation paroxysmal atrial fibrillation. Case discussed with Problems: Subjective 24 Hr Interval Summary Free Text/Dictation Had Gtube replaced successful and TF resumed. BP boarderline low. Exam/Review of Systems Vital Signs Vitals Vital Signs Date Time Temp Pulse Resp B/P Pulse Ox O2 Delivery O2 Flow Rate FiO2 09/23/16 09:00 61 09/23/16 07:53 18 100 35 09/23/16 07:07 98.3 82/45 Intake and Output 09/22/16 09/22/16 09/23/16 15:00 23:00 07:00 Intake Total 35 ml 380 ml Output Total 300 ml 350 ml Balance -265 ml 30 ml Exam General: Chronically ill looking, female on vent . HEENT: Normocephalic, Atraumatic, No laceration or hematoma; Eyes: PEERL, Conjunctiva clear, Anicteric sclera Neck: Supple without any lymphadenopathy, nontender, no JVD, no carotid bruits, trachea midline, no thyromegaly Cardiac: S1, S2 auscultated, regular rhythm and rate, no mumurs or gallop Pulmonary: Trach to vent.Chest clear to auscultation bilaterally, no adventitious breath sounds GI: + G-tube. Abdomen normal to inspection. Soft, non tender, non- distended, no masses, no rebound tenderness or guarding. Bowel sounds active on all four quadrants Genitourinary: Deferred Extremities: Quadriplegic Neurologic: Encephalopathy. Flat affect. Skin: Clean,dry, and intact. No ecchymosis, no rashes, or lesions Results Result Diagram: 09/22/16 1501 09/23/16 0656 Results 24 hrs Laboratory Tests Test 09/22/16 13:25 09/22/16 14:22 09/22/16 15:01 09/22/16 17:42 Bedside Glucose 145 104 Sodium Level 144 Potassium Level 4.3 Chloride Level 108 Carbon Dioxide Level 22 Anion Gap 18 H Blood Urea Nitrogen 80 H Creatinine 0.58 Glucose Level 118 # Calcium Level 8.8 Phosphorus Level 4.1 Magnesium Level 2.3 White Blood Count 13.4 #H Red Blood Count 3.06 L Hemoglobin 8.8 L Hematocrit 30.5 L Mean Corpuscular Volume 99.7 Mean Corpuscular Hemoglobin 28.8 L Mean Corpuscular Hemoglobin Concent 28.9 L Red Cell Distribution Width 19.8 H Platelet Count 301 Mean Platelet Volume 10.8 H Neutrophils % 79.1 H Lymphocytes % 6.6 L Monocytes % 5.5 Eosinophils % 7.3 H Basophils % 0.5 Nucleated Red Blood Cells % 0.3 H Neutrophils # 10.6 H Lymphocytes # 0.9 Monocytes # 0.7 Eosinophils # 1.0 H Basophils # 0.1 Nucleated Red Blood Cells # 0.0 Test 09/22/16 20:59 09/23/16 01:04 09/23/16 05:24 09/23/16 06:56 Bedside Glucose 102 97 111 Sodium Level 143 Potassium Level 3.9 Chloride Level 107 Carbon Dioxide Level 25 Anion Gap 15 Blood Urea Nitrogen 85 H Creatinine 0.66 Glucose Level 79 Calcium Level 8.6 Phosphorus Level 4.4 Magnesium Level 2.2 Test 09/23/16 08:28 Bedside Glucose 92 Medications Medications Current Medications Ondansetron HCl (Zofran Inj) 4 mg Q6H PRN IV NAUSEA AND/OR VOMITING Last administered on 09/20/16 23:29; Admin Dose 4 MG; Start 09/15/16 at 06:30 Acetaminophen (Tylenol Tab) 650 mg Q6H PRN PO PAIN LEVEL 1-3 OR FEVER Last administered on 09/16/16 20:10; Admin Dose 650 MG; Start 09/15/16 at 06:30 Acetaminophen (Tylenol Supp) 650 mg Q6H PRN [place] PAIN LEVEL 1-3 OR FEVER; Start 09/15/16 at 06:30 Amiodarone HCl (Cordarone) 200 mg DAILY GTB Last administered on 09/22/16 09:19 ; Admin Dose 200 MG; Start 09/15/16 at 09:00 Bisacodyl (Dulcolax Supp) 10 mg Q24H PRN [place] CONSTIPATION; Start 09/15/16 at 06: 30 Chlorhexidine Gluconate (Peridex) 15 ml BID MM Last administered on 09/23/16 08 :36; Admin Dose 15 ML; Start 09/15/16 at 09:00 Docusate Sodium (Colace) 200 mg QHS PRN PO CONSTIPATION; Start 09/15/16 at 06:30 Lisinopril (Zestril) 2.5 mg BID GTB Last administered on 09/15/16 09:24; Admin Dose 2.5 MG; Start 09/15/16 at 09:00; Status Future hold Pantoprazole (Protonix Tab) 40 mg DAILY PO Last administered on 09/23/16 08:35 ; Admin Dose 40 MG; Start 09/15/16 at 09:00 Epoetin Kt (Epogen (Non Esrd/Non Oncology)) 3,000 units MoWeFr@17 SC Last administered on 09/21/16 17:50; Admin Dose 3,000 UNITS; Start 09/16/16 at 17:00 Epoetin Kt (Epogen (Non Esrd/Non Oncology)) 2,000 units MoWeFr@17 SC Last administered on 09/21/16 17:52; Admin Dose 2,000 UNITS; Start 09/16/16 at 17:00 Diphenhydramine HCl (Benadryl) 25 mg Q6H PRN IV ITCHING Last administered on 17:50; Admin Dose 25 MG; Start 09/15/16 at 21:00 Tramadol HCl (Ultram) 50 mg Q6H PRN GTB PAIN LEVEL 6-10 Last administered on 21:44; Admin Dose 50 MG; Start 09/17/16 at 12:00 Miscellaneous Information 1 ea NOTE XX ; Start 09/17/16 at 12:00 Insulin Aspart (Novolog Insulin Pen) NOVOLOG *MILD* ALGORI... Q6 SC Last administered on 09/22/16 13:30; Admin Dose 1 UNIT; Start 09/18/16 at 06:00 Miscellaneous Information 1 ea NOTE XX ; Start 09/17/16 at 22:45 Glucose (Glutose) 15 gm Q15M PRN PO DECREASED GLUCOSE; Start 09/17/16 at 22:45 Glucose (Glutose) 22.5 gm Q15M PRN PO DECREASED GLUCOSE; Start 09/17/16 at 22:45 Dextrose (D50w Syringe) 25 ml Q15M PRN IV DECREASED GLUCOSE; Start 09/17/16 at 22:45 Dextrose (D50w Syringe) 50 ml Q15M PRN IV DECREASED GLUCOSE; Start 09/17/16 at 22:45 Glucagon (Glucagen) 1 mg Q15M PRN IM DECREASED GLUCOSE; Start 09/17/16 at 22:45 Glucose (Glutose) 15 gm Q15M PRN BUCCAL DECREASED GLUCOSE; Start 09/17/16 at 22: 45 Acetaminophen (Tylenol Tab) 650 mg Q4 PRN GTB PAIN AND OR ELEVATED TEMP Last administered on 09/23/16 00:59; Admin Dose 650 MG; Start 09/18/16 at 11:30 Albuterol (Proventil 0.083% (Neb)) 2.5 mg Q3H PRN NEB WHEEZING AND SOB; Start 09/18/16 at 11:30 Ascorbic Acid (Vitamin C) 500 mg BID PO Last administered on 09/23/16 08:35; Admin Dose 500 MG; Start 09/18/16 at 21:00 Folic Acid (Folic Acid) 1 mg DAILY GTB Last administered on 09/23/16 08:35; Admin Dose 1 MG; Start 09/19/16 at 09:00 Hydroxyzine HCl (Atarax) 25 mg Q8H PRN PO ITCHING; Start 09/18/16 at 11:30 Lorazepam (Ativan) 1 mg Q8 PRN GTB ANXIETY Last administered on 09/22/16 09:17 ; Admin Dose 1 MG; Start 09/18/16 at 11:30 Magnesium Hydroxide (Milk Of Mag) 30 ml DAILY PRN GTB CONSTIPATION; Start at 11:30 Sodium Biphosphate/ Sodium Phosphate (Fleet Enema Pediatric) 66.6 ml DAILY PRN [place] CONSTIPATION; Start 09/18/16 at 11:30 Lactobacillus Acidophilus/ Rhamnosus (Culturelle) 1 cap BID PO Last administered on 09/23/16 08:36; Admin Dose 1 CAP; Start 09/18/16 at 21:00 Insulin Aspart (Novolog Insulin Pen) 5 unit TID SC Last administered on 08:34; Admin Dose 5 UNIT; Start 09/18/16 at 13:00 Insulin Detemir 18 unit 18 unit HS SC Last administered on 09/22/16 21:13; Admin Dose 18 UNIT; Start 09/18/16 at 21:00 Cefepime HCl (Maxipime 1gm/50 ml (Pmx)) 50 ml @ 100 mls/hr Q24H IVPB Last administered on 09/23/16 08:30; Admin Dose 100 MLS/HR; Start 09/19/16 at 09:00 Morphine Sulfate (morphine) 2 mg Q4H PRN IV PAIN LEVEL 7-10 Last administered on 09/22/16 18:57; Admin Dose 2 MG; Start 09/19/16 at 11:30 Lorazepam (Ativan) 1 mg Q6H PRN IV ANXIETY Last administered on 09/21/16 03:19 ; Admin Dose 1 MG; Start 09/19/16 at 18:30 Lactulose (Enulose) 20 gm Q6 PO Last administered on 09/23/16 05:26; Admin Dose 20 GM; Start 09/20/16 at 13:30 Midodrine (Proamatine) 5 mg TID GTB Last administered on 09/23/16 08:36; Admin Dose 5 MG; Start 09/21/16 at 06:00 Ferrous Sulfate (Ferrous Sulfate (Ec)) 325 mg TID PO Last administered on 08:35; Admin Dose 325 MG; Start 09/21/16 at 10:00 Multivitamins 30 ml 30 ml DAILY GTB Last administered on 09/23/16 08:35; Admin Dose 30 ML; Start 09/21/16 at 10:30 Vancomycin HCl (Vancocin) 250 ml @ 125 mls/hr Q5D IVPB Last administered on 21:38; Admin Dose 125 MLS/HR; Start 09/21/16 at 22:00 SHONDA SOUZA NP Sep 23, 2016 09:51
[2016-09-23] MEDS ORDERED: BACITRACIN 0.9 GM OINT TOP SCH (10:00)
[2016-09-23] MEDS: VORICONAZOLE 200 MG TAB PO SCH ×2 (10:32→20:35)
--- NOTE | 2016-09-23 10:35 | PN ---
DATE: 09/23/2016 SUBJECTIVE DATA: The patient is stable. The patient also noted to be hypotensive. No other events noted. No hemoptysis, hematemesis, hematochezia. OBJECTIVE DATA: VITAL SIGNS: Blood pressure is 82/45, respirations 21, pulse 60, temp 98.3. I's and O's: The patient had 2 L in, 850 out. HEENT: Head is normocephalic. NECK: Supple. HEART: Regular rate. LUNGS: Show diminished breath sounds at the base. ABDOMEN: Soft, nontender to palpation. No rebound or guarding. EXTREMITIES: Negative for clubbing, cyanosis. Trace edema. DERMATOLOGIC: Clean. No rashes. MUSCULOSKELETAL: No joint effusion. NEUROLOGIC: No change in exam. MEDICATIONS: Reviewed. LABORATORY AND DIAGNOSTIC DATA: Reviewed. ASSESSMENT AND PLAN: 1. Nonoliguric acute kidney injury on top of chronic kidney disease, stage 3, with baseline creatinine of 0.6 mg/dL. Etiology secondary to hemodynamics. Renal function currently is stable, appears to be at baseline. Continue current treatment, supportive care. Renally dose all meds. 2. Chronic kidney disease. Etiology is multifactorial. The patient's creatinine is currently overestimating the patient's estimated glomerular filtration rate due to significant muscle wasting. We will continue current treatment plan, treating acute kidney injury stated above. 3. Hypokalemia. Continue to monitor and replete. 4. Hypernatremia, improved. Continue free water flushes. 5. Mineral bone disorder. Continue to monitor calcium and phosphorus levels. 6. Anemia. Continue to monitor H and H levels. 7. Sepsis secondary to healthcare-associated pneumonia. Continue current antibiotic regimen. 8. Ventilatory-dependent respiratory failure. Vent settings have been reviewed. ABGs reviewed. Continue to monitor. 9. History of cardiomyopathy. Continue current medical management. 10. Dysphagia, status post percutaneous endoscopic gastrostomy. Continue tube feeding. 11. Muscular dystrophy. 12. Hypotension. Etiology is likely from diuretic therapy, blood pressure medications. Continue parameters. Consider holding diuretics. We will defer to Cardiology for diuretic regimen. 13. [id number] congestive heart failure. Continue current medical management per Cardiology. Dictated By: Raymon Giordano DO /[email or web address] /Document#: [id number]
--- NOTE | 2016-09-23 14:46 | PN ---
Date/Time of Note Date/Time of Note DATE: 09/23/16 TIME: 14:42 Assessment/Plan VTE Prophylaxis VTE Prophylaxis Intervention: SCD's Lines/Catheters IV Catheter Type (from Nrs): Peripheral IV Urinary Cath still in place: Yes Reason Cath still needed: urinary retention Assessment/Plan Assessment/Plan Asessment Malfunctioning gastrostomy tube resolved Sepsis Chronic respiratory failure Quadriplegia H/O cardiomyopathy Plan will sign out but will follow up as neede continue present medications Case discussed with Dr Nix further orders will depend on clinical course Subjective 24 Hr Interval Summary Free Text/Dictation * Course reviewed with RN * Patient seen and examine * G tube functioning no residuals * No untoward incident overnight Exam/Review of Systems Vital Signs Vitals Vital Signs Date Time Temp Pulse Resp B/P Pulse Ox O2 Delivery O2 Flow Rate FiO2 09/23/16 13:19 90/57 09/23/16 13:06 60 18 100 35 09/23/16 11:26 98.0 Intake and Output 09/22/16 09/22/16 09/23/16 15:00 23:00 07:00 Intake Total 35 ml 380 ml Output Total 300 ml 350 ml Balance -265 ml 30 ml Exam Constitutional: frail Neck: non-tender, supple Respiratory: crackles/rales, diminished breath sounds, other (trach to vent) Cardiovascular: nl pulses, regular rate and rhythm Gastrointestinal: other (g tube), soft Musculoskeletal: muscle weakness Extremities: normal pulses Skin: nl turgor, rash or lesions Results Result Diagram: 09/22/16 1501 09/23/16 0656 Results 24 hrs Laboratory Tests Test 09/22/16 15:01 09/22/16 17:42 09/22/16 20:59 09/23/16 01:04 White Blood Count 13.4 #H Red Blood Count 3.06 L Hemoglobin 8.8 L Hematocrit 30.5 L Mean Corpuscular Volume 99.7 Mean Corpuscular Hemoglobin 28.8 L Mean Corpuscular Hemoglobin Concent 28.9 L Red Cell Distribution Width 19.8 H Platelet Count 301 Mean Platelet Volume 10.8 H Neutrophils % 79.1 H Lymphocytes % 6.6 L Monocytes % 5.5 Eosinophils % 7.3 H Basophils % 0.5 Nucleated Red Blood Cells % 0.3 H Neutrophils # 10.6 H Lymphocytes # 0.9 Monocytes # 0.7 Eosinophils # 1.0 H Basophils # 0.1 Nucleated Red Blood Cells # 0.0 Bedside Glucose 104 102 97 Test 09/23/16 05:24 09/23/16 06:56 09/23/16 08:28 09/23/16 12:12 Bedside Glucose 111 92 128 Sodium Level 143 Potassium Level 3.9 Chloride Level 107 Carbon Dioxide Level 25 Anion Gap 15 Blood Urea Nitrogen 85 H Creatinine 0.66 Glucose Level 79 Calcium Level 8.6 Phosphorus Level 4.4 Magnesium Level 2.2 Medications Medications Current Medications Ondansetron HCl (Zofran Inj) 4 mg Q6H PRN IV NAUSEA AND/OR VOMITING Last administered on 09/20/16 23:29; Admin Dose 4 MG; Start 09/15/16 at 06:30 Acetaminophen (Tylenol Tab) 650 mg Q6H PRN PO PAIN LEVEL 1-3 OR FEVER Last administered on 09/16/16 20:10; Admin Dose 650 MG; Start 09/15/16 at 06:30 Acetaminophen (Tylenol Supp) 650 mg Q6H PRN [place] PAIN LEVEL 1-3 OR FEVER; Start 09/15/16 at 06:30 Amiodarone HCl (Cordarone) 200 mg DAILY GTB Last administered on 09/22/16 09:19 ; Admin Dose 200 MG; Start 09/15/16 at 09:00 Bisacodyl (Dulcolax Supp) 10 mg Q24H PRN [place] CONSTIPATION; Start 09/15/16 at 06: 30 Chlorhexidine Gluconate (Peridex) 15 ml BID MM Last administered on 09/23/16 08 :36; Admin Dose 15 ML; Start 09/15/16 at 09:00 Docusate Sodium (Colace) 200 mg QHS PRN PO CONSTIPATION; Start 09/15/16 at 06:30 Lisinopril (Zestril) 2.5 mg BID GTB Last administered on 09/15/16 09:24; Admin Dose 2.5 MG; Start 09/15/16 at 09:00; Status Future hold Pantoprazole (Protonix Tab) 40 mg DAILY PO Last administered on 09/23/16 08:35 ; Admin Dose 40 MG; Start 09/15/16 at 09:00 Epoetin Kt (Epogen (Non Esrd/Non Oncology)) 3,000 units MoWeFr@17 SC Last administered on 09/21/16 17:50; Admin Dose 3,000 UNITS; Start 09/16/16 at 17:00 Epoetin Kt (Epogen (Non Esrd/Non Oncology)) 2,000 units MoWeFr@17 SC Last administered on 09/21/16 17:52; Admin Dose 2,000 UNITS; Start 09/16/16 at 17:00 Diphenhydramine HCl (Benadryl) 25 mg Q6H PRN IV ITCHING Last administered on 17:50; Admin Dose 25 MG; Start 09/15/16 at 21:00 Tramadol HCl (Ultram) 50 mg Q6H PRN GTB PAIN LEVEL 6-10 Last administered on 21:44; Admin Dose 50 MG; Start 09/17/16 at 12:00 Miscellaneous Information 1 ea NOTE XX ; Start 09/17/16 at 12:00 Insulin Aspart (Novolog Insulin Pen) NOVOLOG *MILD* ALGORI... Q6 SC Last administered on 09/22/16 13:30; Admin Dose 1 UNIT; Start 09/18/16 at 06:00 Miscellaneous Information 1 ea NOTE XX ; Start 09/17/16 at 22:45 Glucose (Glutose) 15 gm Q15M PRN PO DECREASED GLUCOSE; Start 09/17/16 at 22:45 Glucose (Glutose) 22.5 gm Q15M PRN PO DECREASED GLUCOSE; Start 09/17/16 at 22:45 Dextrose (D50w Syringe) 25 ml Q15M PRN IV DECREASED GLUCOSE; Start 09/17/16 at 22:45 Dextrose (D50w Syringe) 50 ml Q15M PRN IV DECREASED GLUCOSE; Start 09/17/16 at 22:45 Glucagon (Glucagen) 1 mg Q15M PRN IM DECREASED GLUCOSE; Start 09/17/16 at 22:45 Glucose (Glutose) 15 gm Q15M PRN BUCCAL DECREASED GLUCOSE; Start 09/17/16 at 22: 45 Acetaminophen (Tylenol Tab) 650 mg Q4 PRN GTB PAIN AND OR ELEVATED TEMP Last administered on 09/23/16 00:59; Admin Dose 650 MG; Start 09/18/16 at 11:30 Albuterol (Proventil 0.083% (Neb)) 2.5 mg Q3H PRN NEB WHEEZING AND SOB; Start 09/18/16 at 11:30 Ascorbic Acid (Vitamin C) 500 mg BID PO Last administered on 09/23/16 08:35; Admin Dose 500 MG; Start 09/18/16 at 21:00 Folic Acid (Folic Acid) 1 mg DAILY GTB Last administered on 09/23/16 08:35; Admin Dose 1 MG; Start 09/19/16 at 09:00 Hydroxyzine HCl (Atarax) 25 mg Q8H PRN PO ITCHING; Start 09/18/16 at 11:30 Lorazepam (Ativan) 1 mg Q8 PRN GTB ANXIETY Last administered on 09/22/16 09:17 ; Admin Dose 1 MG; Start 09/18/16 at 11:30 Magnesium Hydroxide (Milk Of Mag) 30 ml DAILY PRN GTB CONSTIPATION; Start at 11:30 Sodium Biphosphate/ Sodium Phosphate (Fleet Enema Pediatric) 66.6 ml DAILY PRN [place] CONSTIPATION; Start 09/18/16 at 11:30 Lactobacillus Acidophilus/ Rhamnosus (Culturelle) 1 cap BID PO Last administered on 09/23/16 08:36; Admin Dose 1 CAP; Start 09/18/16 at 21:00 Insulin Aspart (Novolog Insulin Pen) 5 unit TID SC Last administered on 12:16; Admin Dose 5 UNIT; Start 09/18/16 at 13:00 Insulin Detemir 18 unit 18 unit HS SC Last administered on 09/22/16 21:13; Admin Dose 18 UNIT; Start 09/18/16 at 21:00 Cefepime HCl (Maxipime 1gm/50 ml (Pmx)) 50 ml @ 100 mls/hr Q24H IVPB Last administered on 09/23/16 08:30; Admin Dose 100 MLS/HR; Start 09/19/16 at 09:00 Morphine Sulfate (morphine) 2 mg Q4H PRN IV PAIN LEVEL 7-10 Last administered on 09/22/16 18:57; Admin Dose 2 MG; Start 09/19/16 at 11:30 Lorazepam (Ativan) 1 mg Q6H PRN IV ANXIETY Last administered on 09/21/16 03:19 ; Admin Dose 1 MG; Start 09/19/16 at 18:30 Lactulose (Enulose) 20 gm Q6 PO Last administered on 09/23/16 12:14; Admin Dose 20 GM; Start 09/20/16 at 13:30 Midodrine (Proamatine) 5 mg TID GTB Last administered on 09/23/16 12:15; Admin Dose 5 MG; Start 09/21/16 at 06:00 Ferrous Sulfate (Ferrous Sulfate (Ec)) 325 mg TID PO Last administered on 12:15; Admin Dose 325 MG; Start 09/21/16 at 10:00 Multivitamins 30 ml 30 ml DAILY GTB Last administered on 09/23/16 08:35; Admin Dose 30 ML; Start 09/21/16 at 10:30 Vancomycin HCl (Vancocin) 250 ml @ 125 mls/hr Q5D IVPB Last administered on 21:38; Admin Dose 125 MLS/HR; Start 09/21/16 at 22:00 Voriconazole (Vfend) 200 mg BID PO Last administered on 09/23/16 10:32; Admin Dose 200 MG; Start 09/23/16 at 09:30; Stop 09/30/16 at 09:29 Bacitracin (Bacitracin Oint (Ud)) 1 applic [facility] ; Start 09/23/16 at 10:00 MARGARITA BARNES NP Sep 23, 2016 14:45
--- NOTE | 2016-09-23 16:51 | CONS ---
Date/Time of Note Date/Time of Note DATE: 09/23/16 TIME: 16:49 Assessment/Plan Assessment/Plan Chief Complaint/Hosp Course Assessment: Acute on chronic systolic heart failure - improved and now possibly hypotensive from overdiuresis Cardiomyopathy, LVEF 20-25% - unclear etiology, unclear if patient has ever had ischemic workup, possibly due to muscular dystrophy Acute kidney injury on chronic kidney disease Healthcare-associated pneumonia - on antibiotics Chronic ventilator-dependent respiratory failure Muscular dystrophy Paroxysmal atrial fibrillation and atrial flutter History of ventricular tachycardia (Torsades de pointes) - status post Bi-V ICD upgrade January 2015 ([employer]) Diabetes mellitus Anemia of chronic disease History of right lower extremity deep vein thrombosis Severe peripheral arterial disease - prior CT LE angio with evidence of [employer] SFA and severe disease of popliteal Recommendations: - echocardiogram showed LVEF 20-25%, RVSP 63 mmHg - hold Bumex - continue amiodarone 200mg daily - off beta-armando and JUAN inhibitor due to borderline blood pressures and renal failure, resume for systolic heart failure as able - consider restarting on chronic anticoagulation paroxysmal atrial fibrillation and history of deep vein thrombosis when clinically more stable Problems: Consultation Date/Type/Reason Admit Date/Time Sep 15, 2016 at 01:59 Initial Consult Date 09/18/16 Type of Consultation: Cardiology 24 HR Interval Summary Free Text/Dictation Hypotensive this morning, though blood pressure now improved. Detailed Summary Additional Comments Unable to obtain review of systems, patient on ventilator. Exam/Review of Systems Vital Signs Vitals Vital Signs Date Time Temp Pulse Resp B/P Pulse Ox O2 Delivery O2 Flow Rate FiO2 09/23/16 15:43 98.3 59 18 113/56 95 09/23/16 15:26 35 Intake and Output 09/22/16 09/22/16 09/23/16 15:00 23:00 07:00 Intake Total 35 ml 380 ml Output Total 300 ml 350 ml Balance -265 ml 30 ml Exam Constitutional: No alert, No distress Psych: No nl mood/affect, No no complaints Head: atraumatic, normocephalic Eyes: nl conjunctiva, nl lids ENMT: nl external ears & nose, nl nasal mucosa & septum Neck: other (tracheostomy) Respiratory: crackles/rales, diminished breath sounds Cardiovascular: irregular rhythm Gastrointestinal: non-tender, soft Extremities: No clubbing, No cyanosis Neurological: No nl mental status, No nl speech Results Result Diagram: 09/22/16 1501 09/23/16 0656 Results 24 hrs Laboratory Tests Test 09/22/16 17:42 09/22/16 20:59 09/23/16 01:04 09/23/16 05:24 Bedside Glucose 104 102 97 111 Test 09/23/16 06:56 09/23/16 08:28 09/23/16 12:12 Sodium Level 143 Potassium Level 3.9 Chloride Level 107 Carbon Dioxide Level 25 Anion Gap 15 Blood Urea Nitrogen 85 H Creatinine 0.66 Glucose Level 79 Calcium Level 8.6 Phosphorus Level 4.4 Magnesium Level 2.2 Bedside Glucose 92 128 Medications Medications Current Medications Ondansetron HCl (Zofran Inj) 4 mg Q6H PRN IV NAUSEA AND/OR VOMITING Last administered on 09/20/16 23:29; Admin Dose 4 MG; Start 09/15/16 at 06:30 Acetaminophen (Tylenol Tab) 650 mg Q6H PRN PO PAIN LEVEL 1-3 OR FEVER Last administered on 09/16/16 20:10; Admin Dose 650 MG; Start 09/15/16 at 06:30 Acetaminophen (Tylenol Supp) 650 mg Q6H PRN [place] PAIN LEVEL 1-3 OR FEVER; Start 09/15/16 at 06:30 Amiodarone HCl (Cordarone) 200 mg DAILY GTB Last administered on 09/22/16 09:19 ; Admin Dose 200 MG; Start 09/15/16 at 09:00 Bisacodyl (Dulcolax Supp) 10 mg Q24H PRN [place] CONSTIPATION; Start 09/15/16 at 06: 30 Chlorhexidine Gluconate (Peridex) 15 ml BID MM Last administered on 09/23/16 08 :36; Admin Dose 15 ML; Start 09/15/16 at 09:00 Docusate Sodium (Colace) 200 mg QHS PRN PO CONSTIPATION; Start 09/15/16 at 06:30 Lisinopril (Zestril) 2.5 mg BID GTB Last administered on 09/15/16 09:24; Admin Dose 2.5 MG; Start 09/15/16 at 09:00; Status Future hold Pantoprazole (Protonix Tab) 40 mg DAILY PO Last administered on 09/23/16 08:35 ; Admin Dose 40 MG; Start 09/15/16 at 09:00 Epoetin Kt (Epogen (Non Esrd/Non Oncology)) 3,000 units MoWeFr@17 SC Last administered on 09/21/16 17:50; Admin Dose 3,000 UNITS; Start 09/16/16 at 17:00 Epoetin Kt (Epogen (Non Esrd/Non Oncology)) 2,000 units MoWeFr@17 SC Last administered on 09/21/16 17:52; Admin Dose 2,000 UNITS; Start 09/16/16 at 17:00 Diphenhydramine HCl (Benadryl) 25 mg Q6H PRN IV ITCHING Last administered on 17:50; Admin Dose 25 MG; Start 09/15/16 at 21:00 Tramadol HCl (Ultram) 50 mg Q6H PRN GTB PAIN LEVEL 6-10 Last administered on 21:44; Admin Dose 50 MG; Start 09/17/16 at 12:00 Miscellaneous Information 1 ea NOTE XX ; Start 09/17/16 at 12:00 Insulin Aspart (Novolog Insulin Pen) NOVOLOG *MILD* ALGORI... Q6 SC Last administered on 09/22/16 13:30; Admin Dose 1 UNIT; Start 09/18/16 at 06:00 Miscellaneous Information 1 ea NOTE XX ; Start 09/17/16 at 22:45 Glucose (Glutose) 15 gm Q15M PRN PO DECREASED GLUCOSE; Start 09/17/16 at 22:45 Glucose (Glutose) 22.5 gm Q15M PRN PO DECREASED GLUCOSE; Start 09/17/16 at 22:45 Dextrose (D50w Syringe) 25 ml Q15M PRN IV DECREASED GLUCOSE; Start 09/17/16 at 22:45 Dextrose (D50w Syringe) 50 ml Q15M PRN IV DECREASED GLUCOSE; Start 09/17/16 at 22:45 Glucagon (Glucagen) 1 mg Q15M PRN IM DECREASED GLUCOSE; Start 09/17/16 at 22:45 Glucose (Glutose) 15 gm Q15M PRN BUCCAL DECREASED GLUCOSE; Start 09/17/16 at 22: 45 Acetaminophen (Tylenol Tab) 650 mg Q4 PRN GTB PAIN AND OR ELEVATED TEMP Last administered on 09/23/16 00:59; Admin Dose 650 MG; Start 09/18/16 at 11:30 Albuterol (Proventil 0.083% (Neb)) 2.5 mg Q3H PRN NEB WHEEZING AND SOB; Start 09/18/16 at 11:30 Ascorbic Acid (Vitamin C) 500 mg BID PO Last administered on 09/23/16 08:35; Admin Dose 500 MG; Start 09/18/16 at 21:00 Folic Acid (Folic Acid) 1 mg DAILY GTB Last administered on 09/23/16 08:35; Admin Dose 1 MG; Start 09/19/16 at 09:00 Hydroxyzine HCl (Atarax) 25 mg Q8H PRN PO ITCHING; Start 09/18/16 at 11:30 Lorazepam (Ativan) 1 mg Q8 PRN GTB ANXIETY Last administered on 09/22/16 09:17 ; Admin Dose 1 MG; Start 09/18/16 at 11:30 Magnesium Hydroxide (Milk Of Mag) 30 ml DAILY PRN GTB CONSTIPATION; Start at 11:30 Sodium Biphosphate/ Sodium Phosphate (Fleet Enema Pediatric) 66.6 ml DAILY PRN [place] CONSTIPATION; Start 09/18/16 at 11:30 Lactobacillus Acidophilus/ Rhamnosus (Culturelle) 1 cap BID PO Last administered on 09/23/16 08:36; Admin Dose 1 CAP; Start 09/18/16 at 21:00 Insulin Aspart (Novolog Insulin Pen) 5 unit TID SC Last administered on 12:16; Admin Dose 5 UNIT; Start 09/18/16 at 13:00 Insulin Detemir 18 unit 18 unit HS SC Last administered on 09/22/16 21:13; Admin Dose 18 UNIT; Start 09/18/16 at 21:00 Cefepime HCl (Maxipime 1gm/50 ml (Pmx)) 50 ml @ 100 mls/hr Q24H IVPB Last administered on 09/23/16 08:30; Admin Dose 100 MLS/HR; Start 09/19/16 at 09:00 Morphine Sulfate (morphine) 2 mg Q4H PRN IV PAIN LEVEL 7-10 Last administered on 09/22/16 18:57; Admin Dose 2 MG; Start 09/19/16 at 11:30 Lorazepam (Ativan) 1 mg Q6H PRN IV ANXIETY Last administered on 09/21/16 03:19 ; Admin Dose 1 MG; Start 09/19/16 at 18:30 Lactulose (Enulose) 20 gm Q6 PO Last administered on 09/23/16 12:14; Admin Dose 20 GM; Start 09/20/16 at 13:30 Midodrine (Proamatine) 5 mg TID GTB Last administered on 09/23/16 12:15; Admin Dose 5 MG; Start 09/21/16 at 06:00 Ferrous Sulfate (Ferrous Sulfate (Ec)) 325 mg TID PO Last administered on 12:15; Admin Dose 325 MG; Start 09/21/16 at 10:00 Multivitamins 30 ml 30 ml DAILY GTB Last administered on 09/23/16 08:35; Admin Dose 30 ML; Start 09/21/16 at 10:30 Vancomycin HCl (Vancocin) 250 ml @ 125 mls/hr Q5D IVPB Last administered on 21:38; Admin Dose 125 MLS/HR; Start 09/21/16 at 22:00 Voriconazole (Vfend) 200 mg BID PO Last administered on 09/23/16 10:32; Admin Dose 200 MG; Start 09/23/16 at 09:30; Stop 09/30/16 at 09:29 Bacitracin (Bacitracin Oint (Ud)) 1 applic BID TOP ; Start 09/23/16 at 21:00 ERICK GUTHRIE MD Sep 23, 2016 16:51
--- NOTE | 2016-09-23 17:09 | CONS ---
Date/Time of Note Date/Time of Note DATE: 09/23/16 TIME: 17:06 Consult Date/Type/Reason Admit Date/Time Sep 15, 2016 at 01:59 Initial Consult Date 09/18/16 Type of Consultation: Pulmonary Subjective Patient noted to be hypotensive this morning. Now somewhat more stable. Objective Vital Signs Date Time Temp Pulse Resp B/P Pulse Ox O2 Delivery O2 Flow Rate FiO2 09/23/16 16:59 60 18 98 35 09/23/16 15:43 98.3 113/56 Intake and Output 09/22/16 09/22/16 09/23/16 15:00 23:00 07:00 Intake Total 35 ml 380 ml Output Total 300 ml 350 ml Balance -265 ml 30 ml Exam PHYSICAL EXAMINATION GENERAL: Elderly lady on mechanical ventilation via tracheostomy VITAL SIGNS: see below. HEENT: Pupils equal, round, and reactive to light. Tracheostomy site clean and intact. CARDIAC: S1, S2, 1/6 systolic ejection murmur CHEST: Diminished air entry bilaterally. ABDOMEN: Mildly distended. Bowel sounds present no guarding or rebound EXTREMITIES: No cyanosis, clubbing edema +1 NEUROLOGIC: Generalized weakness Results/Medications Result Diagram: 09/22/16 1501 09/23/16 0656 Results 24 hrs Laboratory Tests Test 09/22/16 17:42 09/22/16 20:59 09/23/16 01:04 09/23/16 05:24 Bedside Glucose 104 102 97 111 Test 09/23/16 06:56 09/23/16 08:28 09/23/16 12:12 Sodium Level 143 Potassium Level 3.9 Chloride Level 107 Carbon Dioxide Level 25 Anion Gap 15 Blood Urea Nitrogen 85 H Creatinine 0.66 Glucose Level 79 Calcium Level 8.6 Phosphorus Level 4.4 Magnesium Level 2.2 Bedside Glucose 92 128 Medications Current Medications Ondansetron HCl (Zofran Inj) 4 mg Q6H PRN IV NAUSEA AND/OR VOMITING Last administered on 09/20/16 23:29; Admin Dose 4 MG; Start 09/15/16 at 06:30 Acetaminophen (Tylenol Tab) 650 mg Q6H PRN PO PAIN LEVEL 1-3 OR FEVER Last administered on 09/16/16 20:10; Admin Dose 650 MG; Start 09/15/16 at 06:30 Acetaminophen (Tylenol Supp) 650 mg Q6H PRN [place] PAIN LEVEL 1-3 OR FEVER; Start 09/15/16 at 06:30 Amiodarone HCl (Cordarone) 200 mg DAILY GTB Last administered on 09/22/16 09:19 ; Admin Dose 200 MG; Start 09/15/16 at 09:00 Bisacodyl (Dulcolax Supp) 10 mg Q24H PRN [place] CONSTIPATION; Start 09/15/16 at 06: 30 Chlorhexidine Gluconate (Peridex) 15 ml BID MM Last administered on 09/23/16 08 :36; Admin Dose 15 ML; Start 09/15/16 at 09:00 Docusate Sodium (Colace) 200 mg QHS PRN PO CONSTIPATION; Start 09/15/16 at 06:30 Lisinopril (Zestril) 2.5 mg BID GTB Last administered on 09/15/16 09:24; Admin Dose 2.5 MG; Start 09/15/16 at 09:00; Status Future hold Pantoprazole (Protonix Tab) 40 mg DAILY PO Last administered on 09/23/16 08:35 ; Admin Dose 40 MG; Start 09/15/16 at 09:00 Epoetin Kt (Epogen (Non Esrd/Non Oncology)) 3,000 units MoWeFr@17 SC Last administered on 09/21/16 17:50; Admin Dose 3,000 UNITS; Start 09/16/16 at 17:00 Epoetin Kt (Epogen (Non Esrd/Non Oncology)) 2,000 units MoWeFr@17 SC Last administered on 09/21/16 17:52; Admin Dose 2,000 UNITS; Start 09/16/16 at 17:00 Diphenhydramine HCl (Benadryl) 25 mg Q6H PRN IV ITCHING Last administered on 17:50; Admin Dose 25 MG; Start 09/15/16 at 21:00 Tramadol HCl (Ultram) 50 mg Q6H PRN GTB PAIN LEVEL 6-10 Last administered on 21:44; Admin Dose 50 MG; Start 09/17/16 at 12:00 Miscellaneous Information 1 ea NOTE XX ; Start 09/17/16 at 12:00 Insulin Aspart (Novolog Insulin Pen) NOVOLOG *MILD* ALGORI... Q6 SC Last administered on 09/22/16 13:30; Admin Dose 1 UNIT; Start 09/18/16 at 06:00 Miscellaneous Information 1 ea NOTE XX ; Start 09/17/16 at 22:45 Glucose (Glutose) 15 gm Q15M PRN PO DECREASED GLUCOSE; Start 09/17/16 at 22:45 Glucose (Glutose) 22.5 gm Q15M PRN PO DECREASED GLUCOSE; Start 09/17/16 at 22:45 Dextrose (D50w Syringe) 25 ml Q15M PRN IV DECREASED GLUCOSE; Start 09/17/16 at 22:45 Dextrose (D50w Syringe) 50 ml Q15M PRN IV DECREASED GLUCOSE; Start 09/17/16 at 22:45 Glucagon (Glucagen) 1 mg Q15M PRN IM DECREASED GLUCOSE; Start 09/17/16 at 22:45 Glucose (Glutose) 15 gm Q15M PRN BUCCAL DECREASED GLUCOSE; Start 09/17/16 at 22: 45 Acetaminophen (Tylenol Tab) 650 mg Q4 PRN GTB PAIN AND OR ELEVATED TEMP Last administered on 09/23/16 00:59; Admin Dose 650 MG; Start 09/18/16 at 11:30 Albuterol (Proventil 0.083% (Neb)) 2.5 mg Q3H PRN NEB WHEEZING AND SOB; Start 09/18/16 at 11:30 Ascorbic Acid (Vitamin C) 500 mg BID PO Last administered on 09/23/16 08:35; Admin Dose 500 MG; Start 09/18/16 at 21:00 Folic Acid (Folic Acid) 1 mg DAILY GTB Last administered on 09/23/16 08:35; Admin Dose 1 MG; Start 09/19/16 at 09:00 Hydroxyzine HCl (Atarax) 25 mg Q8H PRN PO ITCHING; Start 09/18/16 at 11:30 Lorazepam (Ativan) 1 mg Q8 PRN GTB ANXIETY Last administered on 09/22/16 09:17 ; Admin Dose 1 MG; Start 09/18/16 at 11:30 Magnesium Hydroxide (Milk Of Mag) 30 ml DAILY PRN GTB CONSTIPATION; Start at 11:30 Sodium Biphosphate/ Sodium Phosphate (Fleet Enema Pediatric) 66.6 ml DAILY PRN [place] CONSTIPATION; Start 09/18/16 at 11:30 Lactobacillus Acidophilus/ Rhamnosus (Culturelle) 1 cap BID PO Last administered on 09/23/16 08:36; Admin Dose 1 CAP; Start 09/18/16 at 21:00 Insulin Aspart (Novolog Insulin Pen) 5 unit TID SC Last administered on 12:16; Admin Dose 5 UNIT; Start 09/18/16 at 13:00 Insulin Detemir 18 unit 18 unit HS SC Last administered on 09/22/16 21:13; Admin Dose 18 UNIT; Start 09/18/16 at 21:00 Cefepime HCl (Maxipime 1gm/50 ml (Pmx)) 50 ml @ 100 mls/hr Q24H IVPB Last administered on 09/23/16 08:30; Admin Dose 100 MLS/HR; Start 09/19/16 at 09:00 Morphine Sulfate (morphine) 2 mg Q4H PRN IV PAIN LEVEL 7-10 Last administered on 09/22/16 18:57; Admin Dose 2 MG; Start 09/19/16 at 11:30 Lorazepam (Ativan) 1 mg Q6H PRN IV ANXIETY Last administered on 09/21/16 03:19 ; Admin Dose 1 MG; Start 09/19/16 at 18:30 Lactulose (Enulose) 20 gm Q6 PO Last administered on 09/23/16 12:14; Admin Dose 20 GM; Start 09/20/16 at 13:30 Midodrine (Proamatine) 5 mg TID GTB Last administered on 09/23/16 12:15; Admin Dose 5 MG; Start 09/21/16 at 06:00 Ferrous Sulfate (Ferrous Sulfate (Ec)) 325 mg TID PO Last administered on 12:15; Admin Dose 325 MG; Start 09/21/16 at 10:00 Multivitamins 30 ml 30 ml DAILY GTB Last administered on 09/23/16 08:35; Admin Dose 30 ML; Start 09/21/16 at 10:30 Vancomycin HCl (Vancocin) 250 ml @ 125 mls/hr Q5D IVPB Last administered on 21:38; Admin Dose 125 MLS/HR; Start 09/21/16 at 22:00 Voriconazole (Vfend) 200 mg BID PO Last administered on 09/23/16t 10:32; Admin Dose 200 MG; Start 09/23/16 at 09:30; Stop 09/30/16 at 09:29 Bacitracin (Bacitracin Oint (Ud)) 1 applic BID TOP ; Start 09/23/16 at 21:00 Assessment/Plan Chief Complaint/Hosp Course Additional Assessment/Plan IMP: 1. VDRF 2. HCAP 3. CHF decreased ejection fraction but evidence of pulmonary hypertension. 4. CMY 5. Encephalopathy resolved. 6. Malfunctioning G-tube now resolved. RECS: 1. Vent support 2. BDs/CPT 3. Abx per ID 4. Agree with cardiology hold diuretics. Discharge planning once BP stable. Problems: YUNIEL JACK MD, [facility] Sep 23, 2016 17:08
[2016-09-23] MEDS: EPOETIN 3000 UNITS/ML (NON ESRD/NON ONCOLOGY) SC SCH (17:21)
[2016-09-23] MEDS: EPOETIN 2000 UNITS/ML INJ (NON ESRD/NON ONCOLOGY) SC SCH (17:22)
[2016-09-23] MEDS: traMADol 50 MG TAB GTB PRN (20:37)
[2016-09-23] MEDS: BACITRACIN 0.9 GM OINT TOP SCH (20:38)
[2016-09-23] MEDS: DIPHENHYDRAMINE 50 MG INJ IV PRN (20:41)
[2016-09-23] MEDS: INSULIN DETEMIR [LEVEMIR] 3ML CART SC SCH (20:59)
[2016-09-23 21:09] LABS: BODY FLUID Ascitic fluid
[2016-09-24] VITALS (23 sets, daily range): BP systolic 75–94; BP diastolic 40–53; PULSE 56–64; RESP 17–28
[2016-09-24] MEDS: ALBUTEROL 18 GM INHALER INH SCH ×6 (00:54→21:40)
[2016-09-24] MEDS: LACTULOSE 30ML CUP PO SCH ×4 (01:17→18:09)
[2016-09-24] MEDS ORDERED: SOD CHLORIDE 0.9% 500 ML IV ONE (04:30)
[2016-09-24] MEDS: INSULIN ASPART [NOVOLOG] 3 ML PEN SC SCH ×7 (05:49→21:07)
[2016-09-24] MEDS: AMIODARONE 200 MG TAB GTB SCH (07:46)
[2016-09-24] MEDS: LISINOPRIL 5 MG TAB GTB SCH ×2 (07:47→21:00)
[2016-09-24] MEDS ORDERED: BACITRACIN 0.9 GM OINT TOP SCH (09:00)
[2016-09-24] MEDS: CEFEPIME 1GM/50 ML (PMX) 50 ML IVPB SCH (09:17)
[2016-09-24] MEDS: MULTIVITAMINS 30 ML CUP GTB SCH (09:19)
[2016-09-24] MEDS: CHLORHEXIDINE GLUCONATE 15 ML UD CUP MM SCH ×2 (09:19→20:40)
--- NOTE | 2016-09-24 09:19 | PN ---
Date/Time of Note Date/Time of Note DATE: 09/24/16 TIME: 09:16 Assessment/Plan VTE Prophylaxis VTE Prophylaxis Intervention: SCD's Lines/Catheters IV Catheter Type (from [facility]): Peripheral IV Urinary Cath still in place: Yes Reason Cath still needed: other (indicate) Assessment/Plan Chief Complaint/Hosp Course 1. Acute on chronic Congestive heart failure -Diuretics and antihypertensives are on hold secondary to profound hypotension. -Cardiology on board and will follow their recommendations. 2. Healthcare associated pneumonia. Resolving -Continue antibioticsx 10 days-last date 09/28/16. -Negative cultures. 2. Chronic Trach/vent dependent respiratory failure - Continue trach support, bronchodilators. Follow-up pulmonary recommendation 3. Cardiomyopathy with EF of 30% to 35%, AICD -Again, patient is not tolerating medications secondary to hypotension. 4. Delia Glabrata UTI with <10,000 cc. -Voriconazole Gtube x 7days 5. Chronic hypoxic encephalopathy. - Monitor. 6. Dysphagia dislodged/nonfunctional G-tube. Status post gtube replacement 09/22 -On tube feeds-tolerates -Water flush and Gtube care Qshift to prevent further dislodgment/malfxn 7. Ascites. Stable -Status post paracentesis with 3650. 8. Diabetes - A1c = 5.2. - continue sliding scale insulin, Levemir, aspart TID 9. Acute kidney injury on chronic kidney disease. No stable - Follow-up renal recommendations. 10. Hypertension, now with hypertension. -Antihypertensives on hold-Defer cards for further management. 11. History of quadriplegia secondary to muscular dystrophy -Monitor and supportive care 12. Anemia: Hemoglobin presently stable -Monitor for now 13. Hypernatremia. Resolved -Freewater via G-tube, D5W. Again, follow-up with nephrology recommendation. 15. Pulmonary hypertension. -Diuresis and oxygen. DVT prophylaxis: SCDs PUD prophylaxis: Protonix Plan: Continue current medical management. Discharge planning once blood pressure is more stable. Patient to be monitored by microsoft developer after discharge for restarting on chronic anticoagulation paroxysmal atrial fibrillation. Case discussed with Problems: Subjective 24 Hr Interval Summary Free Text/Dictation Patient with hypotensive episodes requiring fluid bolus last night. Now stable. Exam/Review of Systems Vital Signs Vitals Vital Signs Date Time Temp Pulse Resp B/P Pulse Ox O2 Delivery O2 Flow Rate FiO2 09/24/16 08:37 59 09/24/16 07:33 18 98 35 09/24/16 07:28 98.1 89/41 Intake and Output 09/23/16 09/23/16 09/24/16 15:00 23:00 07:00 Intake Total 50 ml 1140 ml 985 ml Output Total 450 ml 400 ml Balance 50 ml 690 ml 585 ml Exam General: Chronically ill looking, female on vent . HEENT: Normocephalic, Atraumatic, No laceration or hematoma; Eyes: PEERL, Conjunctiva clear, Anicteric sclera Neck: Supple without any lymphadenopathy, nontender, no JVD, no carotid bruits, trachea midline, no thyromegaly Cardiac: S1, S2 auscultated, regular rhythm and rate, no mumurs or gallop Pulmonary: Trach to vent.Chest clear to auscultation bilaterally, no adventitious breath sounds GI: + G-tube. Abdomen normal to inspection. Soft, non tender, non- distended, no masses, no rebound tenderness or guarding. Bowel sounds active on all four quadrants Genitourinary: Deferred Extremities: Quadriplegic Neurologic: Encephalopathy. Flat affect. Skin: Clean,dry, and intact. No ecchymosis, no rashes, or lesions Results Result Diagram: 09/22/16 1501 09/23/16 0656 Results 24 hrs Laboratory Tests Test 09/23/16 12:12 09/23/16 17:25 09/23/16 20:33 09/24/16 01:16 Bedside Glucose 128 114 129 118 Test 09/24/16 05:44 Bedside Glucose 123 Medications Medications Current Medications Ondansetron HCl (Zofran Inj) 4 mg Q6H PRN IV NAUSEA AND/OR VOMITING Last administered on 09/20/16 23:29; Admin Dose 4 MG; Start 09/15/16 at 06:30 Acetaminophen (Tylenol Tab) 650 mg Q6H PRN PO PAIN LEVEL 1-3 OR FEVER Last administered on 09/16/16 20:10; Admin Dose 650 MG; Start 09/15/16 at 06:30 Acetaminophen (Tylenol Supp) 650 mg Q6H PRN [place] PAIN LEVEL 1-3 OR FEVER; Start 09/15/16 at 06:30 Amiodarone HCl (Cordarone) 200 mg DAILY GTB Last administered on 09/22/16 09:19 ; Admin Dose 200 MG; Start 09/15/16 at 09:00 Bisacodyl (Dulcolax Supp) 10 mg Q24H PRN [place] CONSTIPATION; Start 09/15/16 at 06: 30 Chlorhexidine Gluconate (Peridex) 15 ml BID MM Last administered on 09/23/16 20 :35; Admin Dose 15 ML; Start 09/15/16 at 09:00 Docusate Sodium (Colace) 200 mg QHS PRN PO CONSTIPATION; Start 09/15/16 at 06:30 Lisinopril (Zestril) 2.5 mg BID GTB Last administered on 09/15/16 09:24; Admin Dose 2.5 MG; Start 09/15/16 at 09:00; Status Future hold Pantoprazole (Protonix Tab) 40 mg DAILY PO Last administered on 09/23/16 08:35 ; Admin Dose 40 MG; Start 09/15/16 at 09:00 Epoetin Kt (Epogen (Non Esrd/Non Oncology)) 3,000 units MoWeFr@17 SC Last administered on 09/23/16 17:21; Admin Dose 3,000 UNITS; Start 09/16/16 at 17:00 Epoetin Kt (Epogen (Non Esrd/Non Oncology)) 2,000 units MoWeFr@17 SC Last administered on 09/23/16 17:22; Admin Dose 2,000 UNITS; Start 09/16/16 at 17:00 Diphenhydramine HCl (Benadryl) 25 mg Q6H PRN IV ITCHING Last administered on 20:41; Admin Dose 25 MG; Start 09/15/16 at 21:00 Tramadol HCl (Ultram) 50 mg Q6H PRN GTB PAIN LEVEL 6-10 Last administered on 20:37; Admin Dose 50 MG; Start 09/17/16 at 12:00 Miscellaneous Information 1 ea NOTE XX ; Start 09/17/16 at 12:00 Insulin Aspart (Novolog Insulin Pen) NOVOLOG *MILD* ALGORI... Q6 SC Last administered on 09/22/16 13:30; Admin Dose 1 UNIT; Start 09/18/16 at 06:00 Miscellaneous Information 1 ea NOTE XX ; Start 09/17/16 at 22:45 Glucose (Glutose) 15 gm Q15M PRN PO DECREASED GLUCOSE; Start 09/17/16 at 22:45 Glucose (Glutose) 22.5 gm Q15M PRN PO DECREASED GLUCOSE; Start 09/17/16 at 22:45 Dextrose (D50w Syringe) 25 ml Q15M PRN IV DECREASED GLUCOSE; Start 09/17/16 at 22:45 Dextrose (D50w Syringe) 50 ml Q15M PRN IV DECREASED GLUCOSE; Start 09/17/16 at 22:45 Glucagon (Glucagen) 1 mg Q15M PRN IM DECREASED GLUCOSE; Start 09/17/16 at 22:45 Glucose (Glutose) 15 gm Q15M PRN BUCCAL DECREASED GLUCOSE; Start 09/17/16 at 22: 45 Acetaminophen (Tylenol Tab) 650 mg Q4 PRN GTB PAIN AND OR ELEVATED TEMP Last administered on 09/23/16 00:59; Admin Dose 650 MG; Start 09/18/16 at 11:30 Albuterol (Proventil 0.083% (Neb)) 2.5 mg Q3H PRN NEB WHEEZING AND SOB; Start 09/18/16 at 11:30 Ascorbic Acid (Vitamin C) 500 mg BID PO Last administered on 09/23/16 20:38; Admin Dose 500 MG; Start 09/18/16 at 21:00 Folic Acid (Folic Acid) 1 mg DAILY GTB Last administered on 09/23/16 08:35; Admin Dose 1 MG; Start 09/19/16 at 09:00 Hydroxyzine HCl (Atarax) 25 mg Q8H PRN PO ITCHING; Start 09/18/16 at 11:30 Lorazepam (Ativan) 1 mg Q8 PRN GTB ANXIETY Last administered on 09/22/16 09:17 ; Admin Dose 1 MG; Start 09/18/16 at 11:30 Magnesium Hydroxide (Milk Of Mag) 30 ml DAILY PRN GTB CONSTIPATION Last administered on 09/23/16 17:19; Admin Dose 30 ML; Start 09/18/16 at 11:30 Sodium Biphosphate/ Sodium Phosphate (Fleet Enema Pediatric) 66.6 ml DAILY PRN [place] CONSTIPATION; Start 09/18/16 at 11:30 Lactobacillus Acidophilus/ Rhamnosus (Culturelle) 1 cap BID PO Last administered on 09/23/16 20:37; Admin Dose 1 CAP; Start 09/18/16 at 21:00 Insulin Aspart (Novolog Insulin Pen) 5 unit TID SC Last administered on 20:58; Admin Dose 5 UNIT; Start 09/18/16 at 13:00 Insulin Detemir 18 unit 18 unit HS SC Last administered on 09/23/16 20:59; Admin Dose 18 UNIT; Start 09/18/16 at 21:00 Cefepime HCl (Maxipime 1gm/50 ml (Pmx)) 50 ml @ 100 mls/hr Q24H IVPB Last administered on 09/23/16 08:30; Admin Dose 100 MLS/HR; Start 09/19/16 at 09:00 Morphine Sulfate (morphine) 2 mg Q4H PRN IV PAIN LEVEL 7-10 Last administered on 09/22/16 18:57; Admin Dose 2 MG; Start 09/19/16 at 11:30 Lorazepam (Ativan) 1 mg Q6H PRN IV ANXIETY Last administered on 09/21/16 03:19 ; Admin Dose 1 MG; Start 09/19/16 at 18:30 Lactulose (Enulose) 20 gm Q6 PO Last administered on 09/24/16 05:49; Admin Dose 20 GM; Start 09/20/16 at 13:30 Midodrine (Proamatine) 5 mg TID GTB Last administered on 09/23/16 20:37; Admin Dose 5 MG; Start 09/21/16 at 06:00 Ferrous Sulfate (Ferrous Sulfate (Ec)) 325 mg TID PO Last administered on 20:37; Admin Dose 325 MG; Start 09/21/16 at 10:00 Multivitamins 30 ml 30 ml DAILY GTB Last administered on 09/23/16 08:35; Admin Dose 30 ML; Start 09/21/16 at 10:30 Vancomycin HCl (Vancocin) 250 ml @ 125 mls/hr Q5D IVPB Last administered on 21:38; Admin Dose 125 MLS/HR; Start 09/21/16 at 22:00 Voriconazole (Vfend) 200 mg BID PO Last administered on 09/23/16 20:35; Admin Dose 200 MG; Start 09/23/16 at 09:30; Stop 09/30/16 at 09:29 Bacitracin (Bacitracin Oint (Ud)) 1 applic BID TOP Last administered on 20:38; Admin Dose 1 APPLIC; Start 09/23/16 at 21:00 SHONDA SOUZA NP Sep 24, 2016 09:19
[2016-09-24] MEDS: PANTOPRAZOLE (EC) 40 MG TAB PO SCH (09:23)
[2016-09-24] MEDS: FERROUS SULFATE (EC) 325 MG TAB PO SCH ×3 (09:24→20:39)
[2016-09-24] MEDS: FOLIC ACID 1 MG TAB GTB SCH (09:24)
[2016-09-24] MEDS: LACTOBACILLUS RHAMNOSUS CAP PO SCH ×2 (09:24→20:39)
[2016-09-24] MEDS: ASCORBIC ACID 500 MG TAB PO SCH ×2 (09:24→20:39)
[2016-09-24] MEDS: VORICONAZOLE 200 MG TAB PO SCH ×2 (09:24→20:39)
[2016-09-24] MEDS: MIDODRINE 5 MG TAB GTB SCH ×3 (09:24→20:40)
[2016-09-24] MEDS: BACITRACIN 0.9 GM OINT TOP SCH ×2 (09:25→21:15)
[2016-09-24] MEDS: traMADol 50 MG TAB GTB PRN (09:49)
--- NOTE | 2016-09-24 11:04 | PN ---
DATE: 09/24/2016 SUBJECTIVE DATA: Patient is stable. No events overnight. No fevers, chills, nausea, vomiting. OBJECTIVE DATA: VITAL SIGNS: Blood pressure is 89/41, respirations 18, pulse 60, temperature 98.1. HEENT: Head is normocephalic. NECK: Supple. HEART: Regular rate. LUNGS: Diminished breath sounds at the base. ABDOMEN: Soft, nontender to palpation. No rebound or guarding. EXTREMITIES: Negative for clubbing, cyanosis, positive edema. DERMATOLOGIC: Clean. No rashes. MUSCULOSKELETAL: No joint effusion. NEUROLOGIC: No change in exam. MEDICATIONS: Reviewed. LABORATORY AND DIAGNOSTIC DATA: Reviewed. No new labs this morning. ASSESSMENT AND PLAN: 1. Nonoliguric acute kidney injury on top of chronic kidney disease stage 3 with previous baseline creatinine 0.6 mg/dl. Etiology secondary to hemodynamics. Renal function appears to be at baseline. Continue current treatment plan and supportive care. Renally dose all meds. 2. Chronic kidney disease. Etiology multifactorial. The patient's creatinine is currently overestimating the patient's EGFR due to significant muscular wasting. Continue to treat acute kidney injury stated above. 3. Hypokalemia. Continue to monitor and replete. 4. Hyponatremia, improved. Continue free water flushes. 5. Metabolic bone disorder. Monitor calcium and phosphorus levels. 6. Anemia. Monitor hemoglobin and hematocrit levels. 7. Sepsis secondary to healthcare-associated pneumonia. Continue current antibiotic regimen. 8. Ventilatory-dependent respiratory failure. Vent settings reviewed. Arterial blood gases reviewed. Continue to monitor. 9. History of cardiomyopathy. Continue medical management. Diuretics being managed by Cardiology. 10. Dysphagia, continue tube feeding. 11. Muscular dystrophy. 12. Hypertension. The patient's diuretics on hold, currently on midodrine. Continue to monitor. 13. Acute on chronic congestive heart failure exacerbation. Continue medical management per cardiology. Dictated By: Raymon Giordano DO /[email or web address]/tania /Document#: [id number]
[2016-09-24 11:47] LABS: CALCIUM 8.9 mg/dl (8.4-10.2); CREATININE 0.74 mg/dl (0.44-1.00); MAGNESIUM 2.4 mg/dl (1.7-2.5); PHOSPHORUS 4.4 mg/dl (2.5-4.9); POTASSIUM 3.9 mmol/L (3.5-5.1)
[2016-09-24] MEDS: ONDANSETRON 4 MG INJ IV PRN (11:53)
--- NOTE | 2016-09-24 12:31 | CONS ---
Date/Time of Note Date/Time of Note DATE: 09/24/16 TIME: 12:30 Assessment/Plan Assessment/Plan Chief Complaint/Hosp Course Assessment: Acute on chronic systolic heart failure - improved and now possibly hypotensive from overdiuresis Cardiomyopathy, LVEF 20-25% - unclear etiology, unclear if patient has ever had ischemic workup, possibly due to muscular dystrophy Acute kidney injury on chronic kidney disease Healthcare-associated pneumonia - on antibiotics Chronic ventilator-dependent respiratory failure Muscular dystrophy Paroxysmal atrial fibrillation and atrial flutter History of ventricular tachycardia (Torsades de pointes) - status post Bi-V ICD upgrade January 2015 ([place]) Diabetes mellitus Anemia of chronic disease History of right lower extremity deep vein thrombosis Severe peripheral arterial disease - prior CT LE angio with 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 and severe disease of popliteal Recommendations: - echocardiogram showed LVEF 20-25%, RVSP 63 mmHg - hold Bumex - continue amiodarone 200mg daily - off beta-armando and JUAN inhibitor due to borderline blood pressures and renal failure, resume for systolic heart failure as able - consider restarting on chronic anticoagulation paroxysmal atrial fibrillation and history of deep vein thrombosis when clinically more stable Problems: Consultation Date/Type/Reason Admit Date/Time Sep 15, 2016 at 01:59 Initial Consult Date 09/18/16 Type of Consultation: Cardiology 24 HR Interval Summary Free Text/Dictation No acute events. Detailed Summary Additional Comments Unable to obtain review of systems, patient is on ventilator. Exam/Review of Systems Vital Signs Vitals Vital Signs Date Time Temp Pulse Resp B/P Pulse Ox O2 Delivery O2 Flow Rate FiO2 09/24/16 12:23 64 09/24/16 11:23 98.1 18 94/53 96 09/24/16 11:21 35 Intake and Output 09/23/16 09/23/16 09/24/16 14:59 22:59 06:59 Intake Total 50 ml 1140 ml 985 ml Output Total 450 ml 400 ml Balance 50 ml 690 ml 585 ml Exam Constitutional: No alert, No distress Psych: No nl mood/affect, No no complaints Head: atraumatic, normocephalic Eyes: nl conjunctiva, nl lids ENMT: nl external ears & nose, nl nasal mucosa & septum Neck: other (tracheostomy) Respiratory: crackles/rales, diminished breath sounds Cardiovascular: irregular rhythm Gastrointestinal: non-tender, soft Extremities: No clubbing, No cyanosis Neurological: No nl mental status, No nl speech Results Result Diagram: 09/22/16 1501 09/24/16 1103 Results 24 hrs Laboratory Tests Test 09/23/16 17:25 09/23/16 20:33 09/24/16 01:16 09/24/16 05:44 Bedside Glucose 114 129 118 123 Test 09/24/16 09:14 09/24/16 11:03 09/24/16 12:05 Bedside Glucose 128 124 Sodium Level 145 H Potassium Level 3.9 Chloride Level 108 Carbon Dioxide Level 23 Anion Gap 18 H Blood Urea Nitrogen 82 H Creatinine 0.74 Glucose Level 121 # Calcium Level 8.9 Phosphorus Level 4.4 Magnesium Level 2.4 Medications Medications Current Medications Ondansetron HCl (Zofran Inj) 4 mg Q6H PRN IV NAUSEA AND/OR VOMITING Last administered on 09/24/16 11:53; Admin Dose 4 MG; Start 09/15/16 at 06:30 Acetaminophen (Tylenol Tab) 650 mg Q6H PRN PO PAIN LEVEL 1-3 OR FEVER Last administered on 09/16/16 20:10; Admin Dose 650 MG; Start 09/15/16 at 06:30 Acetaminophen (Tylenol Supp) 650 mg Q6H PRN [place] PAIN LEVEL 1-3 OR FEVER; Start 09/15/16 at 06:30 Amiodarone HCl (Cordarone) 200 mg DAILY GTB Last administered on 09/22/16 09:19 ; Admin Dose 200 MG; Start 09/15/16 at 09:00 Bisacodyl (Dulcolax Supp) 10 mg Q24H PRN [place] CONSTIPATION; Start 09/15/16 at 06: 30 Chlorhexidine Gluconate (Peridex) 15 ml BID MM Last administered on 09/24/16 09:19; Admin Dose 15 ML; Start 09/15/16 at 09:00 Docusate Sodium (Colace) 200 mg QHS PRN PO CONSTIPATION; Start 09/15/16 at 06:30 Lisinopril (Zestril) 2.5 mg BID GTB Last administered on 09/15/16 09:24; Admin Dose 2.5 MG; Start 09/15/16 at 09:00; Status Future hold Pantoprazole (Protonix Tab) 40 mg DAILY PO Last administered on 09/24/16 09:23 ; Admin Dose 40 MG; Start 09/15/16 at 09:00 Epoetin Kt (Epogen (Non Esrd/Non Oncology)) 3,000 units MoWeFr@17 SC Last administered on 09/23/16 17:21; Admin Dose 3,000 UNITS; Start 09/16/16 at 17:00 Epoetin Kt (Epogen (Non Esrd/Non Oncology)) 2,000 units MoWeFr@17 SC Last administered on 09/23/16 17:22; Admin Dose 2,000 UNITS; Start 09/16/16 at 17:00 Diphenhydramine HCl (Benadryl) 25 mg Q6H PRN IV ITCHING Last administered on 20:41; Admin Dose 25 MG; Start 09/15/16 at 21:00 Tramadol HCl (Ultram) 50 mg Q6H PRN GTB PAIN LEVEL 6-10 Last administered on 09:49; Admin Dose 50 MG; Start 09/17/16 at 12:00 Miscellaneous Information 1 ea NOTE XX ; Start 09/17/16 at 12:00 Insulin Aspart (Novolog Insulin Pen) NOVOLOG *MILD* ALGORI... Q6 SC Last administered on 09/22/16 13:30; Admin Dose 1 UNIT; Start 09/18/16 at 06:00 Miscellaneous Information 1 ea NOTE XX ; Start 09/17/16 at 22:45 Glucose (Glutose) 15 gm Q15M PRN PO DECREASED GLUCOSE; Start 09/17/16 at 22:45 Glucose (Glutose) 22.5 gm Q15M PRN PO DECREASED GLUCOSE; Start 09/17/16 at 22:45 Dextrose (D50w Syringe) 25 ml Q15M PRN IV DECREASED GLUCOSE; Start 09/17/16 at 22:45 Dextrose (D50w Syringe) 50 ml Q15M PRN IV DECREASED GLUCOSE; Start 09/17/16 at 22:45 Glucagon (Glucagen) 1 mg Q15M PRN IM DECREASED GLUCOSE; Start 09/17/16 at 22:45 Glucose (Glutose) 15 gm Q15M PRN BUCCAL DECREASED GLUCOSE; Start 09/17/16 at 22: 45 Acetaminophen (Tylenol Tab) 650 mg Q4 PRN GTB PAIN AND OR ELEVATED TEMP Last administered on 09/23/16 00:59; Admin Dose 650 MG; Start 09/18/16 at 11:30 Albuterol (Proventil 0.083% (Neb)) 2.5 mg Q3H PRN NEB WHEEZING AND SOB; Start 09/18/16 at 11:30 Ascorbic Acid (Vitamin C) 500 mg BID PO Last administered on 09/24/16 09:24; Admin Dose 500 MG; Start 09/18/16 at 21:00 Folic Acid (Folic Acid) 1 mg DAILY GTB Last administered on 09/24/16 09:24; Admin Dose 1 MG; Start 09/19/16 at 09:00 Hydroxyzine HCl (Atarax) 25 mg Q8H PRN PO ITCHING; Start 09/18/16 at 11:30 Lorazepam (Ativan) 1 mg Q8 PRN GTB ANXIETY Last administered on 09/22/16 09:17 ; Admin Dose 1 MG; Start 09/18/16 at 11:30 Magnesium Hydroxide (Milk Of Mag) 30 ml DAILY PRN GTB CONSTIPATION Last administered on 09/23/16 17:19; Admin Dose 30 ML; Start 09/18/16 at 11:30 Sodium Biphosphate/ Sodium Phosphate (Fleet Enema Pediatric) 66.6 ml DAILY PRN [place] CONSTIPATION; Start 09/18/16 at 11:30 Lactobacillus Acidophilus/ Rhamnosus (Culturelle) 1 cap BID PO Last administered on 09/24/16 09:24; Admin Dose 1 CAP; Start 09/18/16 at 21:00 Insulin Aspart (Novolog Insulin Pen) 5 unit TID SC Last administered on 09:17; Admin Dose 5 UNIT; Start 09/18/16 at 13:00 Insulin Detemir 18 unit 18 unit HS SC Last administered on 09/23/16 20:59; Admin Dose 18 UNIT; Start 09/18/16 at 21:00 Cefepime HCl (Maxipime 1gm/50 ml (Pmx)) 50 ml @ 100 mls/hr Q24H IVPB Last administered on 09/24/16 09:17; Admin Dose 100 MLS/HR; Start 09/19/16 at 09:00 Morphine Sulfate (morphine) 2 mg Q4H PRN IV PAIN LEVEL 7-10 Last administered on 09/22/16 18:57; Admin Dose 2 MG; Start 09/19/16 at 11:30 Lorazepam (Ativan) 1 mg Q6H PRN IV ANXIETY Last administered on 09/21/16 03:19 ; Admin Dose 1 MG; Start 09/19/16 at 18:30 Lactulose (Enulose) 20 gm Q6 PO Last administered on 09/24/16 05:49; Admin Dose 20 GM; Start 09/20/16 at 13:30 Midodrine (Proamatine) 5 mg TID GTB Last administered on 09/24/16 09:24; Admin Dose 5 MG; Start 09/21/16 at 06:00 Ferrous Sulfate (Ferrous Sulfate (Ec)) 325 mg TID PO Last administered on 09:24; Admin Dose 325 MG; Start 09/21/16 at 10:00 Multivitamins 30 ml 30 ml DAILY GTB Last administered on 09/24/16 09:19; Admin Dose 30 ML; Start 09/21/16 at 10:30 Vancomycin HCl (Vancocin) 250 ml @ 125 mls/hr Q5D IVPB Last administered on 21:38; Admin Dose 125 MLS/HR; Start 09/21/16 at 22:00 Voriconazole (Vfend) 200 mg BID PO Last administered on 09/24/16 09:24; Admin Dose 200 MG; Start 09/23/16 at 09:30; Stop 09/30/16 at 09:29 Bacitracin (Bacitracin Oint (Ud)) 1 applic BID TOP Last administered on 09:25; Admin Dose 1 APPLIC; Start 09/23/16 at 21:00 ERICK GUTHRIE MD Sep 24, 2016 12:31
[2016-09-24] MEDS: METOCLOPRAMIDE 10 MG INJ IV SCH (18:08)
[2016-09-24] MEDS: INSULIN DETEMIR [LEVEMIR] 3ML CART SC SCH (21:09)
[2016-09-25] VITALS (79 sets, daily range): BP systolic 70–116; BP diastolic 27–83; PULSE 52–68; RESP 12–27
[2016-09-25] MEDS: METOCLOPRAMIDE 10 MG INJ IV SCH ×5 (00:09→23:38)
[2016-09-25] MEDS: LACTULOSE 30ML CUP PO SCH ×3 (00:10→20:30)
[2016-09-25] MEDS: INSULIN ASPART [NOVOLOG] 3 ML PEN SC SCH ×8 (00:18→23:40)
[2016-09-25] MEDS: ALBUTEROL 18 GM INHALER INH SCH ×6 (01:16→20:23)
[2016-09-25] MEDS ORDERED: SOD CHLORIDE 0.9% 500 ML IV ONE ×2 (04:00→22:00)
[2016-09-25] MEDS ORDERED: SOD CHLORIDE 0.9% 1,000 ML IV ONE ×2 (05:00→07:00)
[2016-09-25] MEDS ORDERED: LIDOCAINE 1% (MPF) 5 ML VIAL SC ONE (07:00)
[2016-09-25] MEDS ORDERED: NORepinephrine 8MG/250 ML (PMX 250 ML ONE (08:03)
[2016-09-25] MEDS ORDERED: NORepinephrine 8MG/250 ML (PMX 250 ML IV SCH (08:30)
[2016-09-25] MEDS: AMIODARONE 200 MG TAB GTB SCH (09:00)
[2016-09-25] MEDS: LISINOPRIL 5 MG TAB GTB SCH ×2 (09:00→20:40)
[2016-09-25 09:20] LABS: CALCIUM 8.2 mg/dl (8.4-10.2); CREATININE 0.8 mg/dl (0.44-1.00); POTASSIUM 3.8 mmol/L (3.5-5.1)
[2016-09-25] MEDS: FOLIC ACID 1 MG TAB GTB SCH (09:41)
[2016-09-25] MEDS: MIDODRINE 5 MG TAB GTB SCH ×3 (09:42→20:30)
[2016-09-25] MEDS: MULTIVITAMINS 30 ML CUP GTB SCH (09:42)
[2016-09-25] MEDS: CEFEPIME 1GM/50 ML (PMX) 50 ML IVPB SCH (09:42)
[2016-09-25] MEDS: CHLORHEXIDINE GLUCONATE 15 ML UD CUP MM SCH ×2 (09:42→20:30)
[2016-09-25] MEDS: PANTOPRAZOLE (EC) 40 MG TAB PO SCH (09:47)
[2016-09-25] MEDS: LACTOBACILLUS RHAMNOSUS CAP PO SCH ×2 (09:47→20:30)
[2016-09-25] MEDS: FERROUS SULFATE (EC) 325 MG TAB PO SCH ×3 (09:47→20:30)
[2016-09-25] MEDS: VORICONAZOLE 200 MG TAB PO SCH ×2 (09:48→20:30)
[2016-09-25] MEDS: ASCORBIC ACID 500 MG TAB PO SCH ×2 (09:48→20:30)
--- NOTE | 2016-09-25 11:02 | PN ---
Date/Time of Note Date/Time of Note DATE: 09/25/16 TIME: 10:30 Assessment/Plan VTE Prophylaxis VTE Prophylaxis Intervention: SCD's Lines/Catheters IV Catheter Type (from Nrs): Saline Lock Urinary Cath still in place: Yes Reason Cath still needed: other (indicate) Assessment/Plan Chief Complaint/Hosp Course 1.Hypotension with hypotensive shock requiring vasopressors and fluids. -Titrate Levophed to keep SBP>90 mm Hg -Hold all antihypertensives -F/u with cards recs. 2. Acute on chronic Congestive heart failure.Ofnote, patient also received fluids for hypotensive emergency. -Obtain a chest Xray for pulmonary congestion -Diuretics and antihypertensives are on hold secondary to profound hypotension. -Cardiology on board and will follow their recommendations. 3. Healthcare associated pneumonia. Resolving -Continue antibioticsx 10 days-last date 09/28/16. -Negative cultures. 4. Chronic Trach/vent dependent respiratory failure - Continue trach support, bronchodilators. Follow-up pulmonary recommendation 5. Cardiomyopathy with EF of 30% to 35%, Bi-VAICD -Again, patient is not tolerating medications secondary to hypotension. 6. ABIB/AFlutter-Currently paced-Not on anticoag -Obtain LE US to rule out DVT 7. Delia Glabrata UTI with <10,000 cc. -Voriconazole Gtube x 7days 8. Chronic anoxic encephalopathy. - Monitor. -palliative care team for further goals of care 9. Dysphagia dislodged/nonfunctional G-tube. Status post gtube replacement 09/22 -Resume Tube feeds when BP stabilizes -Water flush and Gtube care Qshift to prevent further dislodgment/malfxn 10. Ascites. Stable -Status post paracentesis with 3650. --Obtain CT-pt with abdominal distention-rule out other pathologies vs worsening ascites 11. Diabetes - A1c = 5.2. - continue sliding scale insulin, Levemir, aspart TID 12. Acute kidney injury on chronic kidney disease. No stable - Follow-up renal recommendations. 13. History of Hypertension, now with hypertension. -Antihypertensives on hold-Defer cards for further management. 14. History of quadriplegia secondary to muscular dystrophy -Monitor and supportive care 15. Anemia: Hemoglobin presently stable -Monitor for now and obtain iron panel and treat accordingly -Patient also getting Epogen 16. Pulmonary hypertension. -monitor 17. Leukocytosis,possibly 2/2 #3 &#6 -Monitor and obtain stool for cdiff 18.Diarrhea-Lactulose induced? vs others -Decrease dose to BID and hold for >5BMs pe rday -Repeat ammonia level in am and adjust dose accordingly. DVT prophylaxis: SCDs PUD prophylaxis: Protonix Plan: Overall with deconditioning and no clinical improvement despite aggressive medical management . Family desired Full code. Palliative medicine on board for further goals of care clarification. Continue current medical management and f/u with consultants recommendations. Total 60 mins critical care time Case discussed with Problems: Subjective 24 Hr Interval Summary Free Text/Dictation Status post profound hypotension requiring vasopressors and ICU transfer overnight.ON LEVOPHED GTT Exam/Review of Systems Vital Signs Vitals Vital Signs Date Time Temp Pulse Resp B/P Pulse Ox O2 Delivery O2 Flow Rate FiO2 09/25/16 09:32 60 18 100 35 09/25/16 06:48 70/36 09/25/16 04:00 99.7 Mechanical Ventilator Intake and Output 09/24/16 09/24/16 09/25/16 15:00 23:00 07:00 Intake Total 550 ml 1440 ml Output Total 450 ml 95 ml Balance 100 ml 1345 ml Exam General: Obtunded, female on vent . HEENT: Normocephalic, Atraumatic, No laceration or hematoma; Eyes: PEERL, Conjunctiva clear, Anicteric sclera Neck: Supple without any lymphadenopathy, nontender, no JVD, no carotid bruits, trachea midline, no thyromegaly Cardiac: S1, S2 auscultated, regular rhythm and rate, no mumurs or gallop Pulmonary: Trach to vent.Chest clear to auscultation bilaterally, no adventitious breath sounds GI: + G-tube. Diarrhea+ Abdomen distended to inspection.no masses, no rebound tenderness or guarding. Bowel sounds active on all four quadrants Genitourinary: Deferred Extremities: Quadriplegic. +Edema BLE+generalized Neurologic: Encephalopathy. Mostly non-responsive. Skin: Clean,dry, and intact. No ecchymosis, no rashes, or lesions Results Result Diagram: 09/22/16 1501 09/25/16 0741 Results 24 hrs Laboratory Tests Test 09/24/16 11:03 09/24/16 12:05 09/24/16 17:52 09/24/16 20:35 Sodium Level 145 H Potassium Level 3.9 Chloride Level 108 Carbon Dioxide Level 23 Anion Gap 18 H Blood Urea Nitrogen 82 H Creatinine 0.74 Glucose Level 121 # Calcium Level 8.9 Phosphorus Level 4.4 Magnesium Level 2.4 Bedside Glucose 124 134 160 Test 09/25/16 00:02 09/25/16 06:10 09/25/16 07:41 Bedside Glucose 161 172 Sodium Level 142 Potassium Level 3.8 Chloride Level 106 Carbon Dioxide Level 21 Anion Gap 19 H Blood Urea Nitrogen 91 H Creatinine 0.80 Glucose Level 142 Lactic Acid Level 1.4 Calcium Level 8.2 L Medications Medications Current Medications Ondansetron HCl (Zofran Inj) 4 mg Q6H PRN IV NAUSEA AND/OR VOMITING Last administered on 09/24/16 11:53; Admin Dose 4 MG; Start 09/15/16 at 06:30 Acetaminophen (Tylenol Tab) 650 mg Q6H PRN PO PAIN LEVEL 1-3 OR FEVER Last administered on 09/16/16 20:10; Admin Dose 650 MG; Start 09/15/16 at 06:30 Acetaminophen (Tylenol Supp) 650 mg Q6H PRN RI PAIN LEVEL 1-3 OR FEVER; Start 09/15/16 at 06:30 Amiodarone HCl (Cordarone) 200 mg DAILY GTB Last administered on 09/22/16 09:19 ; Admin Dose 200 MG; Start 09/15/16 at 09:00 Bisacodyl (Dulcolax Supp) 10 mg Q24H PRN RI CONSTIPATION; Start 09/15/16 at 06: 30 Chlorhexidine Gluconate (Peridex) 15 ml BID MM Last administered on 09/25/16 09:42; Admin Dose 15 ML; Start 09/15/16 at 09:00 Docusate Sodium (Colace) 200 mg QHS PRN PO CONSTIPATION; Start 09/15/16 at 06:30 Lisinopril (Zestril) 2.5 mg BID GTB Last administered on 09/15/16 09:24; Admin Dose 2.5 MG; Start 09/15/16 at 09:00; Status Future hold Pantoprazole (Protonix Tab) 40 mg DAILY PO Last administered on 09/25/16 09:47 ; Admin Dose 40 MG; Start 09/15/16 at 09:00 Epoetin Kt (Epogen (Non Esrd/Non Oncology)) 3,000 units MoWeFr@17 SC Last administered on 09/23/16 17:21; Admin Dose 3,000 UNITS; Start 09/16/16 at 17:00 Epoetin Kt (Epogen (Non Esrd/Non Oncology)) 2,000 units MoWeFr@17 SC Last administered on 09/23/16 17:22; Admin Dose 2,000 UNITS; Start 09/16/16 at 17:00 Diphenhydramine HCl (Benadryl) 25 mg Q6H PRN IV ITCHING Last administered on 20:41; Admin Dose 25 MG; Start 09/15/16 at 21:00 Tramadol HCl (Ultram) 50 mg Q6H PRN GTB PAIN LEVEL 6-10 Last administered on 09:49; Admin Dose 50 MG; Start 09/17/16 at 12:00 Miscellaneous Information 1 ea NOTE XX ; Start 09/17/16 at 12:00 Insulin Aspart (Novolog Insulin Pen) NOVOLOG *MILD* ALGORI... Q6 SC Last administered on 09/25/16 06:25; Admin Dose 1 UNIT; Start 09/18/16 at 06:00 Miscellaneous Information 1 ea NOTE XX ; Start 09/17/16 at 22:45 Glucose (Glutose) 15 gm Q15M PRN PO DECREASED GLUCOSE; Start 09/17/16 at 22:45 Glucose (Glutose) 22.5 gm Q15M PRN PO DECREASED GLUCOSE; Start 09/17/16 at 22:45 Dextrose (D50w Syringe) 25 ml Q15M PRN IV DECREASED GLUCOSE; Start 09/17/16 at 22:45 Dextrose (D50w Syringe) 50 ml Q15M PRN IV DECREASED GLUCOSE; Start 09/17/16 at 22:45 Glucagon (Glucagen) 1 mg Q15M PRN IM DECREASED GLUCOSE; Start 09/17/16 at 22:45 Glucose (Glutose) 15 gm Q15M PRN BUCCAL DECREASED GLUCOSE; Start 09/17/16 at 22: 45 Acetaminophen (Tylenol Tab) 650 mg Q4 PRN GTB PAIN AND OR ELEVATED TEMP Last administered on 09/23/16 00:59; Admin Dose 650 MG; Start 09/18/16 at 11:30 Albuterol (Proventil 0.083% (Neb)) 2.5 mg Q3H PRN NEB WHEEZING AND SOB; Start 09/18/16 at 11:30 Ascorbic Acid (Vitamin C) 500 mg BID PO Last administered on 09/25/16 09:48; Admin Dose 500 MG; Start 09/18/16 at 21:00 Folic Acid (Folic Acid) 1 mg DAILY GTB Last administered on 09/25/16 09:41; Admin Dose 1 MG; Start 09/19/16 at 09:00 Hydroxyzine HCl (Atarax) 25 mg Q8H PRN PO ITCHING; Start 09/18/16 at 11:30 Lorazepam (Ativan) 1 mg Q8 PRN GTB ANXIETY Last administered on 09/22/16 09:17 ; Admin Dose 1 MG; Start 09/18/16 at 11:30 Magnesium Hydroxide (Milk Of Mag) 30 ml DAILY PRN GTB CONSTIPATION Last administered on 09/23/16 17:19; Admin Dose 30 ML; Start 09/18/16 at 11:30 Sodium Biphosphate/ Sodium Phosphate (Fleet Enema Pediatric) 66.6 ml DAILY PRN RI CONSTIPATION; Start 09/18/16 at 11:30 Lactobacillus Acidophilus/ Rhamnosus (Culturelle) 1 cap BID PO Last administered on 09/25/16 09:47; Admin Dose 1 CAP; Start 09/18/16 at 21:00 Insulin Aspart (Novolog Insulin Pen) 5 unit TID SC Last administered on 21:07; Admin Dose 5 UNIT; Start 09/18/16 at 13:00 Insulin Detemir 18 unit 18 unit HS SC Last administered on 09/24/16 21:09; Admin Dose 18 UNIT; Start 09/18/16 at 21:00 Cefepime HCl (Maxipime 1gm/50 ml (Pmx)) 50 ml @ 100 mls/hr Q24H IVPB Last administered on 09/25/16 09:42; Admin Dose 100 MLS/HR; Start 09/19/16 at 09:00 Morphine Sulfate (morphine) 2 mg Q4H PRN IV PAIN LEVEL 7-10 Last administered on 09/22/16 18:57; Admin Dose 2 MG; Start 09/19/16 at 11:30 Lorazepam (Ativan) 1 mg Q6H PRN IV ANXIETY Last administered on 09/21/16 03:19 ; Admin Dose 1 MG; Start 09/19/16 at 18:30 Lactulose (Enulose) 20 gm Q6 PO Last administered on 09/25/16 06:13; Admin Dose 20 GM; Start 09/20/16 at 13:30 Midodrine (Proamatine) 5 mg TID GTB Last administered on 09/25/16 09:42; Admin Dose 5 MG; Start 09/21/16 at 06:00 Ferrous Sulfate (Ferrous Sulfate (Ec)) 325 mg TID PO Last administered on 09:47; Admin Dose 325 MG; Start 09/21/16 at 10:00 Multivitamins 30 ml 30 ml DAILY GTB Last administered on 09/25/16 09:42; Admin Dose 30 ML; Start 09/21/16 at 10:30 Vancomycin HCl (Vancocin) 250 ml @ 125 mls/hr Q5D IVPB Last administered on 21:38; Admin Dose 125 MLS/HR; Start 09/21/16 at 22:00 Voriconazole (Vfend) 200 mg BID PO Last administered on 09/25/16 09:48; Admin Dose 200 MG; Start 09/23/16 at 09:30; Stop 09/30/16 at 09:29 Bacitracin (Bacitracin Oint (Ud)) 1 applic BID TOP Last administered on 21:15; Admin Dose 1 APPLIC; Start 09/23/16 at 21:00 Metoclopramide HCl 10 mg 10 mg Q6 IV Last administered on 09/25/16 06:13; Admin Dose 10 MG; Start 09/24/16 at 18:00 Norepinephrine 16 mg/Dextrose 500 ml @ 1.87 mls/hr TITRATE IV ; Start 09/25/16 at 07:00; Status Future Hold Norepinephrine (Levophed) 250 ml @ 1.875 mls/ hr TITRATE IV Last administered on 09/25/16 08:29; Admin Dose 9.375 MLS/HR; Start 09/25/16 at 08:30 SHONDA SOUZA NP Sep 25, 2016 10:52
--- NOTE | 2016-09-25 12:31 | RADRPT ---
PROCEDURE: Ultrasound of the bilateral lower extremity venous system. CLINICAL INDICATION: Bilateral leg pain and swelling, deep venous thrombosis TECHNIQUE: Wright scale with and without compression, color doppler, spectral doppler of the venous system of the bilateral lower extremities was performed. Venous augmentation maneuvers were utilized . COMPARISON: 11/19/2015 FINDINGS: RIGHT: Common femoral vein: Patent. Femoral vein: Patent. Popliteal vein: Patent. Calf veins: Patent. Subcutaneous edema is present LEFT: Common femoral vein: Patent. Femoral vein: Patent. Popliteal vein: Patent. Calf veins: Patent. Subcutaneous edema is present. IMPRESSION: No evidence of a deep vein thrombosis within the bilateral lower extremities. RPTAT: AADD .Carlos Chacon MD, MD Date Time Electronically viewed and signed by .Carlos Chacon MD, MD on 09/25/2016 12:30 .B/
[2016-09-25] MEDS: BACITRACIN 0.9 GM OINT TOP SCH ×2 (12:49→20:31)
--- NOTE | 2016-09-25 14:51 | CONS ---
Date/Time of Note Date/Time of Note DATE: 09/25/16 TIME: 14:49 Consult Date/Type/Reason Admit Date/Time Sep 15, 2016 at 01:59 Initial Consult Date 09/18/16 Type of Consultation: Pulmonary Subjective Deterioration in condition. Transferred to intensive care. Now on Levophed. Significant copious stool output. Objective Vital Signs Date Time Temp Pulse Resp B/P Pulse Ox O2 Delivery O2 Flow Rate FiO2 09/25/16 13:05 60 18 100 35 09/25/16 10:45 88/51 09/25/16 10:00 Mechanical Ventilator 09/25/16 08:00 98.6 Intake and Output 09/24/16 09/24/16 09/25/16 15:00 23:00 07:00 Intake Total 550 ml 1440 ml Output Total 450 ml 95 ml Balance 100 ml 1345 ml Exam PHYSICAL EXAMINATION GENERAL: Elderly lady on mechanical ventilation via tracheostomy VITAL SIGNS: see below. HEENT: Pupils equal, round, and reactive to light. Tracheostomy site clean and intact. CARDIAC: S1, S2, systolic ejection murmur. CHEST: Diminished air entry bilaterally. ABDOMEN: Mildly distended. Diminished bowel sounds. EXTREMITIES: No cyanosis, clubbing edema +1 NEUROLOGIC: Generalized weakness Results/Medications Result Diagram: 09/22/16 1501 09/25/16 0741 Results 24 hrs Laboratory Tests Test 09/24/16 17:52 09/24/16 20:35 09/25/16 00:02 09/25/16 06:10 Bedside Glucose 134 160 161 172 Test 09/25/16 07:41 09/25/16 12:47 Sodium Level 142 Potassium Level 3.8 Chloride Level 106 Carbon Dioxide Level 21 Anion Gap 19 H Blood Urea Nitrogen 91 H Creatinine 0.80 Glucose Level 142 Lactic Acid Level 1.4 Calcium Level 8.2 L Bedside Glucose 184 Medications Current Medications Ondansetron HCl (Zofran Inj) 4 mg Q6H PRN IV NAUSEA AND/OR VOMITING Last administered on 09/24/16 11:53; Admin Dose 4 MG; Start 09/15/16 at 06:30 Acetaminophen (Tylenol Tab) 650 mg Q6H PRN PO PAIN LEVEL 1-3 OR FEVER Last administered on 09/16/16 20:10; Admin Dose 650 MG; Start 09/15/16 at 06:30 Acetaminophen (Tylenol Supp) 650 mg Q6H PRN NC PAIN LEVEL 1-3 OR FEVER; Start 09/15/16 at 06:30 Amiodarone HCl (Cordarone) 200 mg DAILY GTB Last administered on 09/22/16 09:19 ; Admin Dose 200 MG; Start 09/15/16 at 09:00 Bisacodyl (Dulcolax Supp) 10 mg Q24H PRN NC CONSTIPATION; Start 09/15/16 at 06: 30 Chlorhexidine Gluconate (Peridex) 15 ml BID MM Last administered on 09/25/16 09:42; Admin Dose 15 ML; Start 09/15/16 at 09:00 Docusate Sodium (Colace) 200 mg QHS PRN PO CONSTIPATION; Start 09/15/16 at 06:30 Lisinopril (Zestril) 2.5 mg BID GTB Last administered on 09/15/16 09:24; Admin Dose 2.5 MG; Start 09/15/16 at 09:00; Status Future hold Pantoprazole (Protonix Tab) 40 mg DAILY PO Last administered on 09/25/16 09:47 ; Admin Dose 40 MG; Start 09/15/16 at 09:00 Epoetin Kt (Epogen (Non Esrd/Non Oncology)) 3,000 units MoWeFr@17 SC Last administered on 09/23/16 17:21; Admin Dose 3,000 UNITS; Start 09/16/16 at 17:00 Epoetin Kt (Epogen (Non Esrd/Non Oncology)) 2,000 units MoWeFr@17 SC Last administered on 09/23/16 17:22; Admin Dose 2,000 UNITS; Start 09/16/16 at 17:00 Diphenhydramine HCl (Benadryl) 25 mg Q6H PRN IV ITCHING Last administered on 20:41; Admin Dose 25 MG; Start 09/15/16 at 21:00 Tramadol HCl (Ultram) 50 mg Q6H PRN GTB PAIN LEVEL 6-10 Last administered on 09:49; Admin Dose 50 MG; Start 09/17/16 at 12:00 Miscellaneous Information 1 ea NOTE XX ; Start 09/17/16 at 12:00 Insulin Aspart (Novolog Insulin Pen) NOVOLOG *MILD* ALGORI... Q6 SC Last administered on 09/25/16 12:51; Admin Dose 2 UNIT; Start 09/18/16 at 06:00 Miscellaneous Information 1 ea NOTE XX ; Start 09/17/16 at 22:45 Glucose (Glutose) 15 gm Q15M PRN PO DECREASED GLUCOSE; Start 09/17/16 at 22:45 Glucose (Glutose) 22.5 gm Q15M PRN PO DECREASED GLUCOSE; Start 09/17/16 at 22:45 Dextrose (D50w Syringe) 25 ml Q15M PRN IV DECREASED GLUCOSE; Start 09/17/16 at 22:45 Dextrose (D50w Syringe) 50 ml Q15M PRN IV DECREASED GLUCOSE; Start 09/17/16 at 22:45 Glucagon (Glucagen) 1 mg Q15M PRN IM DECREASED GLUCOSE; Start 09/17/16 at 22:45 Glucose (Glutose) 15 gm Q15M PRN BUCCAL DECREASED GLUCOSE; Start 09/17/16 at 22: 45 Acetaminophen (Tylenol Tab) 650 mg Q4 PRN GTB PAIN AND OR ELEVATED TEMP Last administered on 09/23/16 00:59; Admin Dose 650 MG; Start 09/18/16 at 11:30 Albuterol (Proventil 0.083% (Neb)) 2.5 mg Q3H PRN NEB WHEEZING AND SOB; Start 09/18/16 at 11:30 Ascorbic Acid (Vitamin C) 500 mg BID PO Last administered on 09/25/16 09:48; Admin Dose 500 MG; Start 09/18/16 at 21:00 Folic Acid (Folic Acid) 1 mg DAILY GTB Last administered on 09/25/16 09:41; Admin Dose 1 MG; Start 09/19/16 at 09:00 Hydroxyzine HCl (Atarax) 25 mg Q8H PRN PO ITCHING; Start 09/18/16 at 11:30 Lorazepam (Ativan) 1 mg Q8 PRN GTB ANXIETY Last administered on 09/22/16 09:17 ; Admin Dose 1 MG; Start 09/18/16 at 11:30 Magnesium Hydroxide (Milk Of Mag) 30 ml DAILY PRN GTB CONSTIPATION Last administered on 09/23/16 17:19; Admin Dose 30 ML; Start 09/18/16 at 11:30 Sodium Biphosphate/ Sodium Phosphate (Fleet Enema Pediatric) 66.6 ml DAILY PRN NC CONSTIPATION; Start 09/18/16 at 11:30 Lactobacillus Acidophilus/ Rhamnosus (Culturelle) 1 cap BID PO Last administered on 09/25/16 09:47; Admin Dose 1 CAP; Start 09/18/16 at 21:00 Insulin Aspart (Novolog Insulin Pen) 5 unit TID SC Last administered on 13:18; Admin Dose 5 UNIT; Start 09/18/16 at 13:00 Insulin Detemir 18 unit 18 unit HS SC Last administered on 09/24/16 21:09; Admin Dose 18 UNIT; Start 09/18/16 at 21:00 Cefepime HCl (Maxipime 1gm/50 ml (Pmx)) 50 ml @ 100 mls/hr Q24H IVPB Last administered on 09/25/16 09:42; Admin Dose 100 MLS/HR; Start 09/19/16 at 09:00 Morphine Sulfate (morphine) 2 mg Q4H PRN IV PAIN LEVEL 7-10 Last administered on 09/22/16 18:57; Admin Dose 2 MG; Start 09/19/16 at 11:30 Lorazepam (Ativan) 1 mg Q6H PRN IV ANXIETY Last administered on 09/21/16 03:19 ; Admin Dose 1 MG; Start 09/19/16 at 18:30 Midodrine (Proamatine) 5 mg TID GTB Last administered on 09/25/16 13:17; Admin Dose 5 MG; Start 09/21/16 at 06:00 Ferrous Sulfate (Ferrous Sulfate (Ec)) 325 mg TID PO Last administered on 13:17; Admin Dose 325 MG; Start 09/21/16 at 10:00 Multivitamins 30 ml 30 ml DAILY GTB Last administered on 09/25/16 09:42; Admin Dose 30 ML; Start 09/21/16 at 10:30 Vancomycin HCl (Vancocin) 250 ml @ 125 mls/hr Q5D IVPB Last administered on 21:38; Admin Dose 125 MLS/HR; Start 09/21/16 at 22:00 Voriconazole (Vfend) 200 mg BID PO Last administered on 09/25/16 09:48; Admin Dose 200 MG; Start 09/23/16 at 09:30; Stop 09/30/16 at 09:29 Bacitracin (Bacitracin Oint (Ud)) 1 applic BID TOP Last administered on 12:49; Admin Dose 1 APPLIC; Start 09/23/16 at 21:00 Metoclopramide HCl 10 mg 10 mg Q6 IV Last administered on 09/25/16 12:49; Admin Dose 10 MG; Start 09/24/16 at 18:00 Norepinephrine 16 mg/Dextrose 500 ml @ 1.87 mls/hr TITRATE IV ; Start 09/25/16 at 07:00; Status Future Hold Norepinephrine (Levophed) 250 ml @ 1.875 mls/ hr TITRATE IV Last administered on 09/25/16 08:29; Admin Dose 9.375 MLS/HR; Start 09/25/16 at 08:30 Lactulose (Enulose) 20 gm BID PO ; Start 09/25/16 at 21:00 Assessment/Plan Chief Complaint/Hosp Course Additional Assessment/Plan IMP: 1. VDRF 2. HCAP 3. CHF decreased ejection fraction but evidence of pulmonary hypertension. 4. CMY 5. Encephalopathy secondary to sepsis. 6. septic shock source unclear, possible peritonitis, ischemic bowel. RECS: 1. Vent support 2. BDs/CPT 3. Abx per ID 4. Volume resuscitation. 5. Vasopressors keep MAP > 65. 6. Panculture 7. CT abdomen pending, Dopplers negative for deep vein thrombosis Disposition Continue ICU care prognosis guarded. Critical care time 40 minutes. Problems: YUNIEL JACK MD, [facility] Sep 25, 2016 14:51
--- NOTE | 2016-09-25 15:32 | RADRPT ---
PROCEDURE: XR Chest. CLINICAL INDICATION: Check PICC line position. TECHNIQUE: Single frontal view. COMPARISON: 09/17/2016 FINDINGS: There is a right arm PICC line with the tip in the lower superior vena cava. The tracheostomy remai ns in satisfactory position. There is a left-sided biventricular pacemaker/internal cardiac defibri llator, unchanged. The heart is enlarged. There is interstitial disease bilaterally consistent with pulmonary edema, slightly improved. There are small bilateral pleural effusions. There is no pneumothorax. IMPRESSION: 1. Right arm PICC line tip in satisfactory position. 2. Improved appearance of the lungs. 3. No other change from 09/17/2016. RPTAT: QQ .Nehemias Garcia MD, MD Date Time Electronically viewed and signed by .Nehemias Garcia MD, on 09/25/2016 15:31 .R/
[2016-09-25] MEDS: EPOETIN 3000 UNITS/ML (NON ESRD/NON ONCOLOGY) SC SCH (18:41)
[2016-09-25] MEDS: EPOETIN 2000 UNITS/ML INJ (NON ESRD/NON ONCOLOGY) SC SCH (18:41)
[2016-09-25] MEDS: INSULIN DETEMIR [LEVEMIR] 3ML CART SC SCH (20:38)
--- NOTE | 2016-09-25 21:55 | CONS ---
Date/Time of Note Date/Time of Note DATE: 09/25/16 TIME: 21:52 Assessment/Plan Assessment/Plan Chief Complaint/Hosp Course Assessment: Septic shock Healthcare-associated pneumonia - on antibiotics Acute on chronic systolic heart failure - improved and now possibly over- diuresed Cardiomyopathy, LVEF 20-25% - unclear etiology, unclear if patient has ever had ischemic workup, possibly due to muscular dystrophy Acute kidney injury on chronic kidney disease Chronic ventilator-dependent respiratory failure Muscular dystrophy Paroxysmal atrial fibrillation and atrial flutter History of ventricular tachycardia (Torsades de pointes) - status post Bi-V ICD upgrade January 2015 (Apieron) Diabetes mellitus Anemia of chronic disease History of right lower extremity deep vein thrombosis Severe peripheral arterial disease - prior CT LE angio with evidence of [employer] SFA and severe disease of popliteal Recommendations: - Levophed to keep MAP>65, wean as tolerated - cautious intravenous fluid hydration, will give additional normal saline 500cc bolus now - continue holding diuretics - off beta-armando and JUAN inhibitor due to borderline blood pressures and renal failure, resume for systolic heart failure as able - continue amiodarone 200mg daily - consider restarting on chronic anticoagulation paroxysmal atrial fibrillation and history of deep vein thrombosis when clinically more stable - echocardiogram showed LVEF 20-25%, RVSP 63 mmHg Problems: Consultation Date/Type/Reason Admit Date/Time Sep 15, 2016 at 01:59 Initial Consult Date 09/18/16 Type of Consultation: Cardiology 24 HR Interval Summary Free Text/Dictation Transferred to ICU for hypotension, started on Levophed drip. Low grade fever to 99.7 F. Detailed Summary Additional Comments Unable to obtain review of systems, patient is on ventilator. Exam/Review of Systems Vital Signs Vitals Vital Signs Date Time Temp Pulse Resp B/P Pulse Ox O2 Delivery O2 Flow Rate FiO2 09/25/16 20:00 35 09/25/16 19:31 60 18 99 09/25/16 18:45 104/60 09/25/16 18:00 Mechanical Ventilator 09/25/16 16:00 98.4 Intake and Output 09/24/16 09/24/16 09/25/16 15:00 23:00 07:00 Intake Total 550 ml 1440 ml Output Total 450 ml 95 ml Balance 100 ml 1345 ml Exam Constitutional: No alert, No distress Psych: No nl mood/affect, No no complaints Head: atraumatic, normocephalic Eyes: nl conjunctiva, nl lids ENMT: nl external ears & nose, nl nasal mucosa & septum Neck: other (tracheostomy) Respiratory: crackles/rales, diminished breath sounds Cardiovascular: irregular rhythm Gastrointestinal: non-tender, soft Extremities: No clubbing, No cyanosis Neurological: No nl mental status, No nl speech Results Result Diagram: 09/22/16 1501 09/25/16 0741 Results 24 hrs Laboratory Tests Test 09/25/16 00:02 09/25/16 06:10 09/25/16 07:41 09/25/16 12:47 Bedside Glucose 161 172 184 Sodium Level 142 Potassium Level 3.8 Chloride Level 106 Carbon Dioxide Level 21 Anion Gap 19 H Blood Urea Nitrogen 91 H Creatinine 0.80 Glucose Level 142 Lactic Acid Level 1.4 Calcium Level 8.2 L Test 09/25/16 16:00 09/25/16 18:50 09/25/16 20:34 Lactic Acid Level 1.0 Bedside Glucose 149 145 Medications Medications Current Medications Ondansetron HCl (Zofran Inj) 4 mg Q6H PRN IV NAUSEA AND/OR VOMITING Last administered on 09/24/16 11:53; Admin Dose 4 MG; Start 09/15/16 at 06:30 Acetaminophen (Tylenol Tab) 650 mg Q6H PRN PO PAIN LEVEL 1-3 OR FEVER Last administered on 09/16/16 20:10; Admin Dose 650 MG; Start 09/15/16 at 06:30 Acetaminophen (Tylenol Supp) 650 mg Q6H PRN [place] PAIN LEVEL 1-3 OR FEVER; Start 09/15/16 at 06:30 Amiodarone HCl (Cordarone) 200 mg DAILY GTB Last administered on 09/22/16 09:19 ; Admin Dose 200 MG; Start 09/15/16 at 09:00 Bisacodyl (Dulcolax Supp) 10 mg Q24H PRN [place] CONSTIPATION; Start 09/15/16 at 06: 30 Chlorhexidine Gluconate (Peridex) 15 ml BID MM Last administered on 09/25/16 20:30; Admin Dose 15 ML; Start 09/15/16 at 09:00 Docusate Sodium (Colace) 200 mg QHS PRN PO CONSTIPATION; Start 09/15/16 at 06:30 Lisinopril (Zestril) 2.5 mg BID GTB Last administered on 09/15/16 09:24; Admin Dose 2.5 MG; Start 09/15/16 at 09:00; Status Future hold Pantoprazole (Protonix Tab) 40 mg DAILY PO Last administered on 09/25/16 09:47 ; Admin Dose 40 MG; Start 09/15/16 at 09:00 Epoetin Kt (Epogen (Non Esrd/Non Oncology)) 3,000 units MoWeFr@17 SC Last administered on 09/25/16 18:41; Admin Dose 3,000 UNITS; Start 09/16/16 at 17:00 Epoetin Kt (Epogen (Non Esrd/Non Oncology)) 2,000 units MoWeFr@17 SC Last administered on 09/25/16 18:41; Admin Dose 2,000 UNITS; Start 09/16/16 at 17:00 Diphenhydramine HCl (Benadryl) 25 mg Q6H PRN IV ITCHING Last administered on 20:41; Admin Dose 25 MG; Start 09/15/16 at 21:00 Tramadol HCl (Ultram) 50 mg Q6H PRN GTB PAIN LEVEL 6-10 Last administered on 09:49; Admin Dose 50 MG; Start 09/17/16 at 12:00 Miscellaneous Information 1 ea NOTE XX ; Start 09/17/16 at 12:00 Insulin Aspart (Novolog Insulin Pen) NOVOLOG *MILD* ALGORI... Q6 SC Last administered on 09/25/16 18:54; Admin Dose 1 UNIT; Start 09/18/16 at 06:00 Miscellaneous Information 1 ea NOTE XX ; Start 09/17/16 at 22:45 Glucose (Glutose) 15 gm Q15M PRN PO DECREASED GLUCOSE; Start 09/17/16 at 22:45 Glucose (Glutose) 22.5 gm Q15M PRN PO DECREASED GLUCOSE; Start 09/17/16 at 22:45 Dextrose (D50w Syringe) 25 ml Q15M PRN IV DECREASED GLUCOSE; Start 09/17/16 at 22:45 Dextrose (D50w Syringe) 50 ml Q15M PRN IV DECREASED GLUCOSE; Start 09/17/16 at 22:45 Glucagon (Glucagen) 1 mg Q15M PRN IM DECREASED GLUCOSE; Start 09/17/16 at 22:45 Glucose (Glutose) 15 gm Q15M PRN BUCCAL DECREASED GLUCOSE; Start 09/17/16 at 22: 45 Acetaminophen (Tylenol Tab) 650 mg Q4 PRN GTB PAIN AND OR ELEVATED TEMP Last administered on 09/23/16 00:59; Admin Dose 650 MG; Start 09/18/16 at 11:30 Albuterol (Proventil 0.083% (Neb)) 2.5 mg Q3H PRN NEB WHEEZING AND SOB; Start 09/18/16 at 11:30 Ascorbic Acid (Vitamin C) 500 mg BID PO Last administered on 09/25/16 20:30; Admin Dose 500 MG; Start 09/18/16 at 21:00 Folic Acid (Folic Acid) 1 mg DAILY GTB Last administered on 09/25/16 09:41; Admin Dose 1 MG; Start 09/19/16 at 09:00 Hydroxyzine HCl (Atarax) 25 mg Q8H PRN PO ITCHING; Start 09/18/16 at 11:30 Lorazepam (Ativan) 1 mg Q8 PRN GTB ANXIETY Last administered on 09/22/16 09:17 ; Admin Dose 1 MG; Start 09/18/16 at 11:30 Magnesium Hydroxide (Milk Of Mag) 30 ml DAILY PRN GTB CONSTIPATION Last administered on 09/23/16 17:19; Admin Dose 30 ML; Start 09/18/16 at 11:30 Sodium Biphosphate/ Sodium Phosphate (Fleet Enema Pediatric) 66.6 ml DAILY PRN [place] CONSTIPATION; Start 09/18/16 at 11:30 Lactobacillus Acidophilus/ Rhamnosus (Culturelle) 1 cap BID PO Last administered on 09/25/16 20:30; Admin Dose 1 CAP; Start 09/18/16 at 21:00 Insulin Aspart (Novolog Insulin Pen) 5 unit TID SC Last administered on 20:37; Admin Dose 5 UNIT; Start 09/18/16 at 13:00 Insulin Detemir 18 unit 18 unit HS SC Last administered on 09/25/16 20:38; Admin Dose 18 UNIT; Start 09/18/16 at 21:00 Cefepime HCl (Maxipime 1gm/50 ml (Pmx)) 50 ml @ 100 mls/hr Q24H IVPB Last administered on 09/25/16 09:42; Admin Dose 100 MLS/HR; Start 09/19/16 at 09:00 Morphine Sulfate (morphine) 2 mg Q4H PRN IV PAIN LEVEL 7-10 Last administered on 09/22/16 18:57; Admin Dose 2 MG; Start 09/19/16 at 11:30 Lorazepam (Ativan) 1 mg Q6H PRN IV ANXIETY Last administered on 09/21/16 03:19 ; Admin Dose 1 MG; Start 09/19/16 at 18:30 Midodrine (Proamatine) 5 mg TID GTB Last administered on 09/25/16 20:30; Admin Dose 5 MG; Start 09/21/16 at 06:00 Ferrous Sulfate (Ferrous Sulfate (Ec)) 325 mg TID PO Last administered on 20:30; Admin Dose 325 MG; Start 09/21/16 at 10:00 Multivitamins 30 ml 30 ml DAILY GTB Last administered on 09/25/16 09:42; Admin Dose 30 ML; Start 09/21/16 at 10:30 Vancomycin HCl (Vancocin) 250 ml @ 125 mls/hr Q5D IVPB Last administered on 21:38; Admin Dose 125 MLS/HR; Start 09/21/16 at 22:00 Voriconazole (Vfend) 200 mg BID PO Last administered on 09/25/16 20:30; Admin Dose 200 MG; Start 09/23/16 at 09:30; Stop 09/30/16 at 09:29 Bacitracin (Bacitracin Oint (Ud)) 1 applic BID TOP Last administered on 20:31; Admin Dose 1 APPLIC; Start 09/23/16 at 21:00 Metoclopramide HCl 10 mg 10 mg Q6 IV Last administered on 09/25/16 18:42; Admin Dose 10 MG; Start 09/24/16 at 18:00 Norepinephrine/ Dextrose (Levophed/D5W) 500 ml @ 1.87 mls/hr TITRATE IV Last administered on 09/25/16 20:39; Admin Dose 26.25 MLS/HR; Start 09/25/16 at 07: 00; Status Future hold Lactulose (Enulose) 20 gm BID PO Last administered on 09/25/16t 20:30; Admin Dose 20 GM; Start 09/25/16 at 21:00 IV Flush (NS 10 ml) 10 ml PRN PRN IV IV PROTOCOL; Start 09/25/16 at 16:00 ERICK GUTHRIE MD Sep 25, 2016 21:55
[2016-09-26] VITALS (102 sets, daily range): BP systolic 90–141; BP diastolic 48–101; PULSE 59–65; RESP 8–25
[2016-09-26] MEDS: ALBUTEROL 18 GM INHALER INH SCH ×6 (00:21→20:59)
--- NOTE | 2016-09-26 02:10 | PN ---
DATE: 09/25/2016 SUBJECTIVE DATA: The patient this morning was noted to be hypotensive, was transferred to the intensive care unit. Patient was noted to be more lethargic. No noted episodes of hemoptysis, hematemesis, hematochezia. OBJECTIVE DATA: VITAL SIGNS: Blood pressure is 104/60, respirations 18, pulse 60, temperature 98.6. I's and O's: Patient had 1900 in, 500 out. HEENT: Head is normocephalic. NECK: Supple. HEART: Regular rate. LUNGS: Show diminished breath sounds at the base. ABDOMEN: Soft, nontender to palpation. No rebound or guarding. EXTREMITIES: Negative for clubbing, cyanosis. Positive edema. DERMATOLOGIC: Clean. No rashes. MUSCULOSKELETAL: No joint effusion. NEUROLOGIC: No change in exam. MEDICATIONS: Reviewed. LABORATORY AND DIAGNOSTIC DATA: Show a white count of 13.4, hemoglobin 8.8, crit 30.5, platelet count is 301. Sodium 142, potassium 2.8, chloride 106, BUN 91, creatinine 0.80. Extremity studies shows no evidence of deep vein thrombosis. ASSESSMENT AND PLAN: 1. Nonoliguric acute kidney injury on top of chronic kidney disease, stage 3, with previous baseline creatinine of 0.6 mg/dL. Etiology of acute kidney injury secondary to hemodynamics. We will monitor renal function closely, as patient now is hypotensive, in shock. Continue current treatment plan and supportive care. Renally dose all meds. Avoid nephrotoxins. 2. Chronic kidney disease. Etiology is multifactorial. Please note, the patient's creatinine is grossly overestimating her estimated glomerular filtration rate due to the patient's significant muscular atrophy. At this point, continue to treat acute kidney injury as stated above. 3. Septic shock. The patient is on antibiotics, on presser support, on intravenous fluids. At this point, continue to monitor. Continue current treatment plan. Follow up cultures. 4. Mineral bone disorder. We will monitor calcium and phosphorus levels. 5. Anemia. Monitor H and H levels. 6. Ventilatory-dependent respiratory failure. Vent settings reviewed. ABGs reviewed. Continue to monitor. 7. History of cardiomyopathy. Continue current medical management. 8. Dysphagia, status post percutaneous endoscopic gastrostomy tube. Continue tube feeding. 9. Muscular dystrophy. 10. Dlghc-so-vpopfii congestive heart failure exacerbation. The patient is currently off diuretics in setting if shock. We will monitor closely. Dictated By: Raymon Giordano DO /[email or web address] /Document#: [id number]
[2016-09-26 04:53] LABS: BASOPHIL # 0.1 10^3/ul (0.0-0.1); BASOPHILS % 0.4 % (0.0-2.0); EOSINOPHILS # 0.8 10^3/ul (0.0-0.5); EOSINOPHILS % 5.6 % (0.0-7.0); HEMATOCRIT 28.6 % (37.0-47.0); HEMOGLOBIN 8.3 g/dl (12.0-16.0); LYMPHOCYTES # 1.1 10^3/ul (0.8-2.9); LYMPHOCYTES % 8.2 % (15.0-51.0); MEAN CORPUSCULAR HEMOGLOBIN 27.9 pg (29.0-33.0); MEAN PLATELET VOLUME 10.6 fl (7.4-10.4); MONOCYTES % 7.3 % (0.0-11.0); NEUTROPHIL # 10.4 10^3/ul (1.6-7.5); NEUTROPHILS % 77.8 % (39.0-77.0); PLATELET COUNT 373 10^3/UL (140-415); RED BLOOD COUNT 2.98 10^6/ul (4.20-5.40); RED CELL DISTRIBUTION WIDTH 19.1 % (11.5-14.5); WHITE BLOOD COUNT 13.4 10^3/ul (4.8-10.8)
[2016-09-26 05:08] LABS: CALCIUM 8.4 mg/dl (8.4-10.2); CREATININE 0.94 mg/dl (0.44-1.00); MAGNESIUM 2.5 mg/dl (1.7-2.5); POTASSIUM 3.4 mmol/L (3.5-5.1)
[2016-09-26 05:11] LABS: IRON 28 ug/dl (35-150)
[2016-09-26 05:20] LABS: TOTAL IRON BINDING CAPACITY 191 ug/dl (241-421)
[2016-09-26] MEDS: METOCLOPRAMIDE 10 MG INJ IV SCH ×3 (05:45→18:56)
[2016-09-26] MEDS: INSULIN ASPART [NOVOLOG] 3 ML PEN SC SCH ×6 (05:46→21:00)
[2016-09-26] MEDS: ALBUMIN HUMAN 25% 100 ML IV SCH ×3 (07:30→18:56)
[2016-09-26] MEDS ORDERED: POTASSIUM CHLORIDE 20 MEQ POWDER FOR ORAL SOLN NGT ONE (07:30)
--- NOTE | 2016-09-26 08:10 | PN ---
DATE: 09/26/2016 SUBJECTIVE DATA: The patient was transferred from Telemetry to the Intensive Care Unit due to hypertension. Overnight, the patient has been in shock on presser support. Urinary output has been minimal, only 85 mL noted. No other events noted. OBJECTIVE DATA: VITAL SIGNS: Blood pressure 137/160, respirations 18, pulse 60, temperature 98.6. HEENT: Head is normocephalic. NECK: Supple. HEART: Regular rate. LUNGS: Diminished breath sounds at the base. ABDOMEN: Soft, nontender to palpation. No rebound or guarding. EXTREMITIES: Negative for clubbing, cyanosis. Positive edema. DERMATOLOGIC: No rashes. MUSCULOSKELETAL: No joint effusion. NEUROLOGIC: No change in exam. MEDICATIONS: Reviewed. LABORATORY AND DIAGNOSTIC DATA: Sodium 139, potassium, chloride 109, bicarb 20, BUN 93, creatinine 0.94. White count 13.4, hemoglobin 8.3, hematocrit 28.6. Platelet count is 373,000. The patient's imaging studies have been reviewed. ASSESSMENT AND PLAN: 1. Oligoaneuric acute kidney injury on top of chronic kidney disease stage 3/4, with previous baseline creatinine 0.6 mg/dL. Etiology of current acute kidney injury is likely secondary to sepsis, possible tubular injury. Plan at this point is to repeat urinalysis with microanalysis. We will check urine electrolytes. Continue current treatment plan and presser support. Will give the patient volume expansion with IV albumin. Monitor renal function closely. 2. Chronic kidney disease. Etiology is multifactorial. Please note, the patient's creatinine is currently grossly over- estimating her glomerular filtration rate due to significant muscular atrophy. Plan is to continue to treat acute kidney injury as stated above. 3. Septic shock. The patient remains on antibiotics, pressor support intravenous fluids. Continue current treatment plan. Follow up cultures. Follow up with Infectious Disease. 4. Mineral bone disorder. Monitor calcium and phosphorus levels. 5. Anemia. Monitor hemoglobin and hematocrit levels. 6. Ventilatory-dependent respiratory failure. Ventilator settings reviewed. Arterial blood gases reviewed. Continue to monitor. 7. History of cardiomyopathy. Continue current treatment plan. 8. Dysphagia, status post-percutaneous endoscopic gastrostomy. Continue tube feeding. 9. Muscular dystrophy. 10. Acute on chronic congestive heart failure exacerbation. Continue medical management. Follow up with Cardiology. Dictated By: Raymon Giordano DO /[email or web address] /Document#: [id number]
[2016-09-26] MEDS: LISINOPRIL 5 MG TAB GTB SCH ×2 (09:00→21:00)
[2016-09-26] MEDS: CEFEPIME 1GM/50 ML (PMX) 50 ML IVPB SCH (09:06)
[2016-09-26 09:09] LABS: AADO2 Arterial 116.6 mmHg (7.0-24.0); Allen Test ACCEPTAB; Arterial Base Excess -6.8 mmol/L (-3.0-3); Arterial COHb 0.3 % (0.0-3.0); Arterial Fraction of Oxyhgb 94.9 % (93.0-99.0); Arterial HCO3 19.4 mmol/L (22.0-26.0); Arterial MetHb 0.2 % (0.0-1.5); Arterial Total Hemglobin 10.2 g/dl (12.0-18.0); MODE VENT - AC
[2016-09-26] MEDS: CHLORHEXIDINE GLUCONATE 15 ML UD CUP MM SCH ×2 (09:14→21:19)
[2016-09-26] MEDS: FOLIC ACID 1 MG TAB GTB SCH (09:15)
[2016-09-26] MEDS: LACTOBACILLUS RHAMNOSUS CAP PO SCH ×2 (09:15→21:18)
[2016-09-26] MEDS: LACTULOSE 30ML CUP PO SCH ×2 (09:15→21:18)
[2016-09-26] MEDS: ASCORBIC ACID 500 MG TAB PO SCH ×2 (09:15→21:00)
[2016-09-26] MEDS: VORICONAZOLE 200 MG TAB PO SCH ×2 (09:15→21:18)
[2016-09-26] MEDS: MULTIVITAMINS 30 ML CUP GTB SCH (09:15)
[2016-09-26] MEDS: PANTOPRAZOLE (EC) 40 MG TAB PO SCH (09:15)
[2016-09-26] MEDS: FERROUS SULFATE (EC) 325 MG TAB PO SCH ×3 (09:16→21:18)
[2016-09-26] MEDS: AMIODARONE 200 MG TAB GTB SCH (09:16)
[2016-09-26] MEDS: MIDODRINE 5 MG TAB GTB SCH ×3 (09:16→21:18)
[2016-09-26] MEDS: BACITRACIN 0.9 GM OINT TOP SCH ×2 (09:18→23:08)
--- NOTE | 2016-09-26 12:05 | CONS ---
Date/Time of Note Date/Time of Note DATE: 09/26/16 TIME: 12:03 Assessment/Plan Assessment/Plan Chief Complaint/Hosp Course Septic shock HCAP VDRF CM/CHF Recurrent ascites==> no evidence of SBP UTI Plan: Repeat cx's, change Cefepime to Merrem Problems: Consultation Date/Type/Reason Admit Date/Time Sep 15, 2016 at 01:59 Initial Consult Date 09/18/16 Type of Consultation: id Exam/Review of Systems Vital Signs Vitals Vital Signs Date Time Temp Pulse Resp B/P Pulse Ox O2 Delivery O2 Flow Rate FiO2 09/26/16 11:30 60 18 90/54 100 Mechanical Ventilator 09/26/16 09:20 35 09/26/16 08:03 98.4 Intake and Output 09/25/16 09/25/16 09/26/16 15:00 23:00 07:00 Intake Total 50 ml 337.49 ml 136.87 ml Output Total 45 ml 40 ml 0 ml Balance 5 ml 297.49 ml 136.87 ml Results Result Diagram: 09/26/16 0400 09/26/16 0400 Results 24 hrs Laboratory Tests Test 09/25/16 12:47 09/25/16 16:00 09/25/16 18:50 09/25/16 20:34 Bedside Glucose 184 149 145 Lactic Acid Level 1.0 Test 09/25/16 23:38 09/26/16 04:00 09/26/16 05:46 09/26/16 07:00 Bedside Glucose 150 136 White Blood Count 13.4 H Red Blood Count 2.98 L Hemoglobin 8.3 L Hematocrit 28.6 L Mean Corpuscular Volume 96.0 Mean Corpuscular Hemoglobin 27.9 L Mean Corpuscular Hemoglobin Concent 29.0 L Red Cell Distribution Width 19.1 H Platelet Count 373 # Mean Platelet Volume 10.6 H Neutrophils % 77.8 H Lymphocytes % 8.2 L Monocytes % 7.3 Eosinophils % 5.6 Basophils % 0.4 Nucleated Red Blood Cells % 0.0 Neutrophils # 10.4 H Lymphocytes # 1.1 Monocytes # 1.0 H Eosinophils # 0.8 H Basophils # 0.1 Nucleated Red Blood Cells # 0.0 Sodium Level 139 Potassium Level 3.4 L Chloride Level 109 Carbon Dioxide Level 20 L Anion Gap 13 Blood Urea Nitrogen 92 H Creatinine 0.94 Glucose Level 133 Lactic Acid Level 0.9 Calcium Level 8.4 Magnesium Level 2.5 Iron Level 28 L Total Iron Binding Capacity 191 L Percent Iron Saturation 15 L Ammonia 66 H Blood Gas Specimen Source Blood arterial Arterial Blood Date Drawn 09/26/2016 9:00:25 AM Arterial Blood pH (Temp corrected) 7.285 *L Arterial Blood pCO2 (Temp correct) 41.8 Arterial Blood pO2 (Temp corrected) 84.4 Arterial Blood HCO3 19.4 L Arterial Blood Base Excess -6.8 L Arterial Blood Oxygen Saturation 95.4 Chad Test ACCEPTAB Arterial Blood Gas Puncture Site Right Radial Arterial Blood Carboxyhemoglobin 0.3 Arterial Blood Methemoglobin 0.2 Blood Gas A-a O2 Differential 116.6 H Oxyhemoglobin Percent 94.9 Total Hemoglobin 10.2 L Blood Gas Temperature 37.0 Blood Gas Respiration Rate 16.0 Blood Gas Actual Respiration Rate 22 Blood Gas Modality VENT - AC FiO2 35.0 Blood Gas Tidal Volume 550.0 Blood Gas Low PEEP Setting 5.0 Blood Gas Critical Value Read Back Himanshu GOTTLIEB RN Blood Gas Notified Whom Richard Blood Gas Notified Time 09/26/2016 9:08:06 AM Test 09/26/16 09:24 Bedside Glucose 116 Medications Medications Current Medications Ondansetron HCl (Zofran Inj) 4 mg Q6H PRN IV NAUSEA AND/OR VOMITING Last administered on 09/24/16 11:53; Admin Dose 4 MG; Start 09/15/16 at 06:30 Acetaminophen (Tylenol Tab) 650 mg Q6H PRN PO PAIN LEVEL 1-3 OR FEVER Last administered on 09/16/16 20:10; Admin Dose 650 MG; Start 09/15/16 at 06:30 Acetaminophen (Tylenol Supp) 650 mg Q6H PRN [place] PAIN LEVEL 1-3 OR FEVER; Start 09/15/16 at 06:30 Amiodarone HCl (Cordarone) 200 mg DAILY GTB Last administered on 09/26/16 09: 16; Admin Dose 200 MG; Start 09/15/16 at 09:00 Bisacodyl (Dulcolax Supp) 10 mg Q24H PRN [place] CONSTIPATION; Start 09/15/16 at 06: 30 Chlorhexidine Gluconate (Peridex) 15 ml BID MM Last administered on 09/26/16 09:14; Admin Dose 15 ML; Start 09/15/16 at 09:00 Docusate Sodium (Colace) 200 mg QHS PRN PO CONSTIPATION; Start 09/15/16 at 06:30 Lisinopril (Zestril) 2.5 mg BID GTB Last administered on 09/15/16 09:24; Admin Dose 2.5 MG; Start 09/15/16 at 09:00; Status Future hold Pantoprazole (Protonix Tab) 40 mg DAILY PO Last administered on 09/26/16 09:15 ; Admin Dose 40 MG; Start 09/15/16 at 09:00 Epoetin Kt (Epogen (Non Esrd/Non Oncology)) 3,000 units MoWeFr@17 SC Last administered on 09/25/16 18:41; Admin Dose 3,000 UNITS; Start 09/16/16 at 17:00 Epoetin Kt (Epogen (Non Esrd/Non Oncology)) 2,000 units MoWeFr@17 SC Last administered on 09/25/16 18:41; Admin Dose 2,000 UNITS; Start 09/16/16 at 17:00 Diphenhydramine HCl (Benadryl) 25 mg Q6H PRN IV ITCHING Last administered on 20:41; Admin Dose 25 MG; Start 09/15/16 at 21:00 Tramadol HCl (Ultram) 50 mg Q6H PRN GTB PAIN LEVEL 6-10 Last administered on 09:49; Admin Dose 50 MG; Start 09/17/16 at 12:00 Miscellaneous Information 1 ea NOTE XX ; Start 09/17/16 at 12:00 Insulin Aspart (Novolog Insulin Pen) NOVOLOG *MILD* ALGORI... Q6 SC Last administered on 09/25/16 23:40; Admin Dose 1 UNIT; Start 09/18/16 at 06:00 Miscellaneous Information 1 ea NOTE XX ; Start 09/17/16 at 22:45 Glucose (Glutose) 15 gm Q15M PRN PO DECREASED GLUCOSE; Start 09/17/16 at 22:45 Glucose (Glutose) 22.5 gm Q15M PRN PO DECREASED GLUCOSE; Start 09/17/16 at 22:45 Dextrose (D50w Syringe) 25 ml Q15M PRN IV DECREASED GLUCOSE; Start 09/17/16 at 22:45 Dextrose (D50w Syringe) 50 ml Q15M PRN IV DECREASED GLUCOSE; Start 09/17/16 at 22:45 Glucagon (Glucagen) 1 mg Q15M PRN IM DECREASED GLUCOSE; Start 09/17/16 at 22:45 Glucose (Glutose) 15 gm Q15M PRN BUCCAL DECREASED GLUCOSE; Start 09/17/16 at 22: 45 Acetaminophen (Tylenol Tab) 650 mg Q4 PRN GTB PAIN AND OR ELEVATED TEMP Last administered on 09/23/16 00:59; Admin Dose 650 MG; Start 09/18/16 at 11:30 Albuterol (Proventil 0.083% (Neb)) 2.5 mg Q3H PRN NEB WHEEZING AND SOB; Start 09/18/16 at 11:30 Ascorbic Acid (Vitamin C) 500 mg BID PO Last administered on 09/26/16 09:15; Admin Dose 500 MG; Start 09/18/16 at 21:00 Folic Acid (Folic Acid) 1 mg DAILY GTB Last administered on 09/26/16 09:15; Admin Dose 1 MG; Start 09/19/16 at 09:00 Hydroxyzine HCl (Atarax) 25 mg Q8H PRN PO ITCHING; Start 09/18/16 at 11:30 Lorazepam (Ativan) 1 mg Q8 PRN GTB ANXIETY Last administered on 09/22/16 09:17 ; Admin Dose 1 MG; Start 09/18/16 at 11:30 Magnesium Hydroxide (Milk Of Mag) 30 ml DAILY PRN GTB CONSTIPATION Last administered on 09/23/16 17:19; Admin Dose 30 ML; Start 09/18/16 at 11:30 Sodium Biphosphate/ Sodium Phosphate (Fleet Enema Pediatric) 66.6 ml DAILY PRN RI CONSTIPATION; Start 09/18/16 at 11:30 Lactobacillus Acidophilus/ Rhamnosus (Culturelle) 1 cap BID PO Last administered on 09/26/16 09:15; Admin Dose 1 CAP; Start 09/18/16 at 21:00 Insulin Aspart (Novolog Insulin Pen) 5 unit TID SC Last administered on 20:37; Admin Dose 5 UNIT; Start 09/18/16 at 13:00 Insulin Detemir (Levemir) 18 unit HS SC Last administered on 09/25/16 20:38; Admin Dose 18 UNIT; Start 09/18/16 at 21:00 Morphine Sulfate (morphine) 2 mg Q4H PRN IV PAIN LEVEL 7-10 Last administered on 09/22/16 18:57; Admin Dose 2 MG; Start 09/19/16 at 11:30 Lorazepam (Ativan) 1 mg Q6H PRN IV ANXIETY Last administered on 09/21/16 03:19 ; Admin Dose 1 MG; Start 09/19/16 at 18:30 Midodrine (Proamatine) 5 mg TID GTB Last administered on 09/26/16 09:16; Admin Dose 5 MG; Start 09/21/16 at 06:00 Ferrous Sulfate (Ferrous Sulfate (Ec)) 325 mg TID PO Last administered on 09:16; Admin Dose 325 MG; Start 09/21/16 at 10:00 Multivitamins 30 ml 30 ml DAILY GTB Last administered on 09/26/16 09:15; Admin Dose 30 ML; Start 09/21/16 at 10:30 Vancomycin HCl (Vancocin) 250 ml @ 125 mls/hr Q5D IVPB Last administered on 21:38; Admin Dose 125 MLS/HR; Start 09/21/16 at 22:00 Voriconazole (Vfend) 200 mg BID PO Last administered on 09/26/16 09:15; Admin Dose 200 MG; Start 09/23/16 at 09:30; Stop 09/30/16 at 09:29 Bacitracin (Bacitracin Oint (Ud)) 1 applic BID TOP Last administered on 09:18; Admin Dose 1 APPLIC; Start 09/23/16 at 21:00 Metoclopramide HCl 10 mg 10 mg Q6 IV Last administered on 09/26/16 05:45; Admin Dose 10 MG; Start 09/24/16 at 18:00 Norepinephrine/ Dextrose (Levophed/D5W) 500 ml @ 1.87 mls/hr TITRATE IV Last administered on 09/25/16 20:39; Admin Dose 26.25 MLS/HR; Start 09/25/16 at 07: 00; Status Future hold Lactulose (Enulose) 20 gm BID PO Last administered on 09/26/16 09:15; Admin Dose 20 GM; Start 09/25/16 at 21:00 IV Flush 10 ml 10 ml PRN PRN IV IV PROTOCOL; Start 09/25/16 at 16:00 Albumin Human 100 ml @ 100 mls/hr Q6 IV Last administered on 09/26/16t 07:30; Admin Dose 100 MLS/HR; Start 09/26/16 at 07:30; Stop 09/27/16 at 00:59 Meropenem/Sodium Chloride (Merrem 500mg/50 ml(Pmx)) 50 ml @ 200 mls/hr Q8 IVPB ; Start 09/26/16 at 14:00 JANNETH BURTON NP Sep 26, 2016 12:05
--- NOTE | 2016-09-26 12:42 | CONS ---
Date/Time of Note Date/Time of Note DATE: 09/26/16 TIME: 12:40 Consult Date/Type/Reason Admit Date/Time Sep 15, 2016 at 01:59 Initial Consult Date 09/18/16 Type of Consultation: Pulmonary Subjective No significant neurological changes. Continues vasopressors. Metabolic acidosis on arterial blood gas. Schedule for CT abdomen today. Objective Vital Signs Date Time Temp Pulse Resp B/P Pulse Ox O2 Delivery O2 Flow Rate FiO2 09/26/16 11:30 60 18 90/54 100 Mechanical Ventilator 09/26/16 09:20 35 09/26/16 08:03 98.4 Intake and Output 09/25/16 09/25/16 09/26/16 15:00 23:00 07:00 Intake Total 50 ml 337.49 ml 136.87 ml Output Total 45 ml 40 ml 0 ml Balance 5 ml 297.49 ml 136.87 ml Exam PHYSICAL EXAMINATION GENERAL: Elderly lady on mechanical ventilation via tracheostomy VITAL SIGNS: see below. HEENT: Pupils equal, round, and reactive to light. Tracheostomy site clean and intact. CARDIAC: S1, S2, systolic ejection murmur. CHEST: Diminished air entry bilaterally. ABDOMEN: Mildly distended. Diminished bowel sounds. EXTREMITIES: No cyanosis, clubbing edema +1 NEUROLOGIC: Generalized weakness Results/Medications Result Diagram: 09/26/16 0400 09/26/16 0400 Results 24 hrs Laboratory Tests Test 09/25/16 12:47 09/25/16 16:00 09/25/16 18:50 09/25/16 20:34 Bedside Glucose 184 149 145 Lactic Acid Level 1.0 Test 09/25/16 23:38 09/26/16 04:00 09/26/16 05:46 09/26/16 07:00 Bedside Glucose 150 136 White Blood Count 13.4 H Red Blood Count 2.98 L Hemoglobin 8.3 L Hematocrit 28.6 L Mean Corpuscular Volume 96.0 Mean Corpuscular Hemoglobin 27.9 L Mean Corpuscular Hemoglobin Concent 29.0 L Red Cell Distribution Width 19.1 H Platelet Count 373 # Mean Platelet Volume 10.6 H Neutrophils % 77.8 H Lymphocytes % 8.2 L Monocytes % 7.3 Eosinophils % 5.6 Basophils % 0.4 Nucleated Red Blood Cells % 0.0 Neutrophils # 10.4 H Lymphocytes # 1.1 Monocytes # 1.0 H Eosinophils # 0.8 H Basophils # 0.1 Nucleated Red Blood Cells # 0.0 Sodium Level 139 Potassium Level 3.4 L Chloride Level 109 Carbon Dioxide Level 20 L Anion Gap 13 Blood Urea Nitrogen 92 H Creatinine 0.94 Glucose Level 133 Lactic Acid Level 0.9 Calcium Level 8.4 Magnesium Level 2.5 Iron Level 28 L Total Iron Binding Capacity 191 L Percent Iron Saturation 15 L Ammonia 66 H Blood Gas Specimen Source Blood arterial Arterial Blood Date Drawn 09/26/2016 9:00:25 AM Arterial Blood pH (Temp corrected) 7.285 *L Arterial Blood pCO2 (Temp correct) 41.8 Arterial Blood pO2 (Temp corrected) 84.4 Arterial Blood HCO3 19.4 L Arterial Blood Base Excess -6.8 L Arterial Blood Oxygen Saturation 95.4 Chad Test ACCEPTAB Arterial Blood Gas Puncture Site Right Radial Arterial Blood Carboxyhemoglobin 0.3 Arterial Blood Methemoglobin 0.2 Blood Gas A-a O2 Differential 116.6 H Oxyhemoglobin Percent 94.9 Total Hemoglobin 10.2 L Blood Gas Temperature 37.0 Blood Gas Respiration Rate 16.0 Blood Gas Actual Respiration Rate 22 Blood Gas Modality VENT - AC FiO2 35.0 Blood Gas Tidal Volume 550.0 Blood Gas Low PEEP Setting 5.0 Blood Gas Critical Value Read Back Himanshu GOTTLIEB RN Blood Gas Notified Whom Richard Blood Gas Notified Time 09/26/2016 9:08:06 AM Test 09/26/16 09:24 Bedside Glucose 116 Medications Current Medications Ondansetron HCl (Zofran Inj) 4 mg Q6H PRN IV NAUSEA AND/OR VOMITING Last administered on 09/24/16 11:53; Admin Dose 4 MG; Start 09/15/16 at 06:30 Acetaminophen (Tylenol Tab) 650 mg Q6H PRN PO PAIN LEVEL 1-3 OR FEVER Last administered on 09/16/16 20:10; Admin Dose 650 MG; Start 09/15/16 at 06:30 Acetaminophen (Tylenol Supp) 650 mg Q6H PRN ID PAIN LEVEL 1-3 OR FEVER; Start 09/15/16 at 06:30 Amiodarone HCl (Cordarone) 200 mg DAILY GTB Last administered on 09/26/16 09: 16; Admin Dose 200 MG; Start 09/15/16 at 09:00 Bisacodyl (Dulcolax Supp) 10 mg Q24H PRN ID CONSTIPATION; Start 09/15/16 at 06: 30 Chlorhexidine Gluconate (Peridex) 15 ml BID MM Last administered on 09/26/16 09:14; Admin Dose 15 ML; Start 09/15/16 at 09:00 Docusate Sodium (Colace) 200 mg QHS PRN PO CONSTIPATION; Start 09/15/16 at 06:30 Lisinopril (Zestril) 2.5 mg BID GTB Last administered on 09/15/16 09:24; Admin Dose 2.5 MG; Start 09/15/16 at 09:00; Status Future hold Pantoprazole (Protonix Tab) 40 mg DAILY PO Last administered on 09/26/16 09:15 ; Admin Dose 40 MG; Start 09/15/16 at 09:00 Epoetin Kt (Epogen (Non Esrd/Non Oncology)) 3,000 units MoWeFr@17 SC Last administered on 09/25/16 18:41; Admin Dose 3,000 UNITS; Start 09/16/16 at 17:00 Epoetin Kt (Epogen (Non Esrd/Non Oncology)) 2,000 units MoWeFr@17 SC Last administered on 09/25/16 18:41; Admin Dose 2,000 UNITS; Start 09/16/16 at 17:00 Diphenhydramine HCl (Benadryl) 25 mg Q6H PRN IV ITCHING Last administered on 20:41; Admin Dose 25 MG; Start 09/15/16 at 21:00 Tramadol HCl (Ultram) 50 mg Q6H PRN GTB PAIN LEVEL 6-10 Last administered on 09:49; Admin Dose 50 MG; Start 09/17/16 at 12:00 Miscellaneous Information 1 ea NOTE XX ; Start 09/17/16 at 12:00 Insulin Aspart (Novolog Insulin Pen) NOVOLOG *MILD* ALGORI... Q6 SC Last administered on 09/25/16 23:40; Admin Dose 1 UNIT; Start 09/18/16 at 06:00 Miscellaneous Information 1 ea NOTE XX ; Start 09/17/16 at 22:45 Glucose (Glutose) 15 gm Q15M PRN PO DECREASED GLUCOSE; Start 09/17/16 at 22:45 Glucose (Glutose) 22.5 gm Q15M PRN PO DECREASED GLUCOSE; Start 09/17/16 at 22:45 Dextrose (D50w Syringe) 25 ml Q15M PRN IV DECREASED GLUCOSE; Start 09/17/16 at 22:45 Dextrose (D50w Syringe) 50 ml Q15M PRN IV DECREASED GLUCOSE; Start 09/17/16 at 22:45 Glucagon (Glucagen) 1 mg Q15M PRN IM DECREASED GLUCOSE; Start 09/17/16 at 22:45 Glucose (Glutose) 15 gm Q15M PRN BUCCAL DECREASED GLUCOSE; Start 09/17/16 at 22: 45 Acetaminophen (Tylenol Tab) 650 mg Q4 PRN GTB PAIN AND OR ELEVATED TEMP Last administered on 09/23/16 00:59; Admin Dose 650 MG; Start 09/18/16 at 11:30 Albuterol (Proventil 0.083% (Neb)) 2.5 mg Q3H PRN NEB WHEEZING AND SOB; Start 09/18/16 at 11:30 Ascorbic Acid (Vitamin C) 500 mg BID PO Last administered on 09/26/16 09:15; Admin Dose 500 MG; Start 09/18/16 at 21:00 Folic Acid (Folic Acid) 1 mg DAILY GTB Last administered on 09/26/16 09:15; Admin Dose 1 MG; Start 09/19/16 at 09:00 Hydroxyzine HCl (Atarax) 25 mg Q8H PRN PO ITCHING; Start 09/18/16 at 11:30 Lorazepam (Ativan) 1 mg Q8 PRN GTB ANXIETY Last administered on 09/22/16 09:17 ; Admin Dose 1 MG; Start 09/18/16 at 11:30 Magnesium Hydroxide (Milk Of Mag) 30 ml DAILY PRN GTB CONSTIPATION Last administered on 09/23/16 17:19; Admin Dose 30 ML; Start 09/18/16 at 11:30 Sodium Biphosphate/ Sodium Phosphate (Fleet Enema Pediatric) 66.6 ml DAILY PRN ID CONSTIPATION; Start 09/18/16 at 11:30 Lactobacillus Acidophilus/ Rhamnosus (Culturelle) 1 cap BID PO Last administered on 09/26/16 09:15; Admin Dose 1 CAP; Start 09/18/16 at 21:00 Insulin Aspart (Novolog Insulin Pen) 5 unit TID SC Last administered on 20:37; Admin Dose 5 UNIT; Start 09/18/16 at 13:00 Insulin Detemir (Levemir) 18 unit HS SC Last administered on 09/25/16 20:38; Admin Dose 18 UNIT; Start 09/18/16 at 21:00 Morphine Sulfate (morphine) 2 mg Q4H PRN IV PAIN LEVEL 7-10 Last administered on 09/22/16 18:57; Admin Dose 2 MG; Start 09/19/16 at 11:30 Lorazepam (Ativan) 1 mg Q6H PRN IV ANXIETY Last administered on 09/21/16 03:19 ; Admin Dose 1 MG; Start 09/19/16 at 18:30 Midodrine (Proamatine) 5 mg TID GTB Last administered on 09/26/16 09:16; Admin Dose 5 MG; Start 09/21/16 at 06:00 Ferrous Sulfate (Ferrous Sulfate (Ec)) 325 mg TID PO Last administered on 09:16; Admin Dose 325 MG; Start 09/21/16 at 10:00 Multivitamins 30 ml 30 ml DAILY GTB Last administered on 09/26/16 09:15; Admin Dose 30 ML; Start 09/21/16 at 10:30 Vancomycin HCl (Vancocin) 250 ml @ 125 mls/hr Q5D IVPB Last administered on 21:38; Admin Dose 125 MLS/HR; Start 09/21/16 at 22:00 Voriconazole (Vfend) 200 mg BID PO Last administered on 09/26/16 09:15; Admin Dose 200 MG; Start 09/23/16 at 09:30; Stop 09/30/16 at 09:29 Bacitracin (Bacitracin Oint (Ud)) 1 applic BID TOP Last administered on 09:18; Admin Dose 1 APPLIC; Start 09/23/16 at 21:00 Metoclopramide HCl 10 mg 10 mg Q6 IV Last administered on 09/26/16 05:45; Admin Dose 10 MG; Start 09/24/16 at 18:00 Norepinephrine/ Dextrose (Levophed/D5W) 500 ml @ 1.87 mls/hr TITRATE IV Last administered on 09/25/16 20:39; Admin Dose 26.25 MLS/HR; Start 09/25/16 at 07: 00; Status Future hold Lactulose (Enulose) 20 gm BID PO Last administered on 09/26/16 09:15; Admin Dose 20 GM; Start 09/25/16 at 21:00 IV Flush 10 ml 10 ml PRN PRN IV IV PROTOCOL; Start 09/25/16 at 16:00 Albumin Human 100 ml @ 100 mls/hr Q6 IV Last administered on 09/26/16 07:30; Admin Dose 100 MLS/HR; Start 09/26/16 at 07:30; Stop 09/27/16 at 00:59 Meropenem/Sodium Chloride (Merrem 500mg/50 ml(Pmx)) 50 ml @ 200 mls/hr Q8 IVPB ; Start 09/26/16 at 14:00 Assessment/Plan Chief Complaint/Hosp Course Additional Assessment/Plan IMP: 1. VDRF 2. HCAP 3. CHF decreased ejection fraction but evidence of pulmonary hypertension. 4. CMY 5. Encephalopathy secondary to sepsis. 6. septic shock source unclear, possible peritonitis, ischemic bowel. 7. Worsening acidosis, mixed acidosis. Both metabolic and respiratory RECS: 1. Vent support increase minute ventilation. 2. BDs/CPT 3. Abx per ID 4. Volume resuscitation. May need bicarbonate. 5. Vasopressors keep MAP > 65. 6. Panculture 7. CT abdomen pending, Dopplers negative for deep vein thrombosis Disposition Continue ICU care prognosis guarded. Critical care time 40 minutes. Problems: YUNIEL JACK MD, [facility] Sep 26, 2016 12:42
--- NOTE | 2016-09-26 13:28 | RADRPT ---
PROCEDURE: XR Chest. CLINICAL INDICATION: As for a failure TECHNIQUE: Single frontal view. COMPARISON: 04/21/2012 FINDINGS: There is a right arm PICC line with the tip in the distal SVC. The tracheostomy remains in satisfact ory position. There is a left-sided biventricular pacemaker/internal cardiac defibrillator, unchang ed. The heart is enlarged. Atherosclerotic calcifications are present. There is interstitial disease bilaterally consistent with pulmonary edema. There are small bilateral pleural effusions. There is no pneumothorax. IMPRESSION: 1. Bilateral pulmonary edema with small bilateral pleural effusions. 2. Cardiomegaly and aortic atherosclerosis. RPTAT: QQ .Adolfo Tariq MD, Date Time Electronically viewed and signed by .Adolfo Tariq MD, on 09/26/2016 13:27 .M/
[2016-09-26] MEDS ORDERED: MEROPENEM 500MG/50 ML (PMX) 50 ML IVPB SCH (14:00)
[2016-09-26 15:57] LABS: AADO2 Arterial 128.8 mmHg (7.0-24.0); Allen Test ACCEPTAB; Arterial COHb 0.1 % (0.0-3.0); Arterial Fraction of Oxyhgb 94.9 % (93.0-99.0); Arterial HCO3 18.3 mmol/L (22.0-26.0); Arterial MetHb 0.2 % (0.0-1.5); Arterial Total Hemglobin 9.5 g/dl (12.0-18.0); MODE VENT - AC
[2016-09-26] MEDS: MEROPENEM 500MG/50 ML (PMX) 50 ML IVPB SCH (21:19)
[2016-09-26] MEDS: VANCOMYCIN 1 GM in NS 250 ML IVPB SCH (23:00)
[2016-09-27] VITALS (76 sets, daily range): BP systolic 88–128; BP diastolic 50–96; PULSE 59–70; RESP 17–25
[2016-09-27] MEDS: ALBUMIN HUMAN 25% 100 ML IV SCH ×4 (00:46→23:03)
[2016-09-27] MEDS: METOCLOPRAMIDE 10 MG INJ IV SCH ×4 (00:52→17:29)
[2016-09-27] MEDS: INSULIN DETEMIR [LEVEMIR] 3ML CART SC SCH ×2 (01:07→22:10)
[2016-09-27] MEDS: ALBUTEROL 18 GM INHALER INH SCH ×6 (01:14→20:48)
--- NOTE | 2016-09-27 01:38 | RADRPT ---
PROCEDURE: CT Abdomen and Pelvis without contrast. CLINICAL INDICATION: Abdominal distension. TECHNIQUE: A CT scan of the abdomen and pelvis was performed without intravenous contrast. Lilly l and sagittal reformatted images were generated. Images were reviewed on a high-resolution PACS wor kstation. CTDIvol: 23.50 mGy. DLP: 1486.41 mGy-cm. One or more of the following dose reduction techniques were used: - Automated exposure control. - Adjustment of the mA and/or kV according to patient size. - Use of iterative reconstruction technique. COMPARISON: 09/19/2016 FINDINGS: There are small right and small to moderate left pleural effusions. Extensive patchy consolidative o pacities are seen in both lower lungs, and background of diffuse ground-glass lung opacification. Th dave findings are not significantly changed. The heart is enlarged. Cardiac pacemaker / AICD leads a re partially imaged. Evaluation of the abdominal and pelvic viscera is limited by the lack of intravenous contrast. There is a [id number] volume of ascites, not significantly changed. This limits evaluation for in tra-abdominal inflammation and masses. The liver is unremarkable. The gallbladder is contracted. There are stones in the gallbladder. <The common bile duct is not dilated. The spleen is not enlarged. No pancreatic lesion is identified and there is no pancreatic ductal dilatation. The adrenal glands are unremarkable. The kidneys are normal in size. There is no perinephric fat stranding. No hydronephrosis is seen. No urinary stone is identified. There are multiple nonobstructing stones in both kidneys measuring up to 3 mm on the right. There is a gastrostomy tube with its tip in the stomach. The small and large bowel are normal in ca liber. There is no bowel wall thickening. There is a rectal tube in place. The appendix is normal. There is a small amount of fluid in the urinary bladder. Minimal air is also seen in the urinary bl adder lumen, possibly related to recent catheterization. There is a 5.5 cm fibroid along the uterin e fundus. Again seen is endometrial thickening (1.4 cm). The left ovary is unremarkable. The right ovary is not clearly visualized. No lymphadenopathy is identified. No pneumoperitoneum is seen. There are no arterial calcifications. There is extensive subcutaneous edema. No suspicious osseous lesion is idenitified. IMPRESSION: 1. Hfqrrhxi-ia-pyqiu volume of ascites, not significantly changed. This limits evaluation for intr a-abdominal inflammation and masses. 2. Cholelithiasis. 3. Nonobstructing stones in both kidneys measuring up to 3 mm on the right. 4. Gastrostomy and rectal tubes in place. 5. 5.5 cm uterine fibroid. 6. Endometrial thickening (1.4 cm). Correlation with ultrasound is recommended. 7. Small right and small to moderate left pleural effusions, not significantly changed. 8. Extensive patchy consolidative opacities in both lower lungs, with a background of diffuse grou nd-glass lung opacification. This is nonspecific but suggestive of pulmonary edema, possibly with kelly perimposed pneumonia. 9. Extensive subcutaneous edema. RPTAT: HTAR .Cb Shelby MD, Date Time Electronically viewed and signed by .Cb Shelby MD, on 09/27/2016 01:37 .R/
[2016-09-27 05:06] LABS: BASOPHILS % 0.5 % (0.0-2.0); EOSINOPHILS # 0.8 10^3/ul (0.0-0.5); EOSINOPHILS % 9.4 % (0.0-7.0); HEMATOCRIT 24.4 % (37.0-47.0); HEMOGLOBIN 7.3 g/dl (12.0-16.0); LYMPHOCYTES # 0.8 10^3/ul (0.8-2.9); LYMPHOCYTES % 10.2 % (15.0-51.0); MEAN CORPUSCULAR HEMOGLOBIN 28.4 pg (29.0-33.0); MEAN CORPUSCULAR HGB CONC 29.9 g/dl (32.0-37.0); MEAN CORPUSCULAR VOLUME 94.9 fl (82.0-101.0); MEAN PLATELET VOLUME 10.3 fl (7.4-10.4); MONOCYTE # 0.5 10^3/ul (0.3-0.9); NEUTROPHIL # 5.9 10^3/ul (1.6-7.5); NEUTROPHILS % 73.3 % (39.0-77.0); PLATELET COUNT 253 10^3/UL (140-415); RED BLOOD COUNT 2.57 10^6/ul (4.20-5.40); RED CELL DISTRIBUTION WIDTH 19.3 % (11.5-14.5)
[2016-09-27 05:12] LABS: CALCIUM 8.8 mg/dl (8.4-10.2); CREATININE 0.93 mg/dl (0.44-1.00); MAGNESIUM 2.5 mg/dl (1.7-2.5); POTASSIUM 3.3 mmol/L (3.5-5.1)
[2016-09-27] MEDS: INSULIN ASPART [NOVOLOG] 3 ML PEN SC SCH ×7 (06:00→21:00)
[2016-09-27] MEDS ORDERED: POTASSIUM CHLORIDE 250 ML IVPB ONE (07:30)
--- NOTE | 2016-09-27 07:58 | PN ---
DATE: 09/26/2016 SUBJECTIVE DATA: The patient was transferred to ICU currently on Levophed drip, status post fluid bolus. She is lethargic, in no distress. OBJECTIVE DATA: VITAL SIGNS: Temperature 97.9, T Max 99.7, pulse 60, respirations 18, blood pressure 100/62, saturation 99 on vent support. LABORATORY AND DIAGNOSTIC DATA: WBC 13.4, H and H 8.3 and 28.6, platelets 373, neutrophils 77.8. BUN 92, creatinine 0.94. Indwelling trach, PEG, Matthew, rectal tube, right upper extremity PICC line. Blood cultures since admission was negative. Urine culture grew Delia glabrata. CT of the abdomen and pelvis on admission revealed moderate to large amount of ascites. Moderate retained fecal material. No evidence of bowel obstruction or perforation. Cholelithiasis without evidence for cholecystitis. Small bilateral nonobstructive renal calculi without ureterolithiasis or obstructive uropathy. Uterine fibroid grossly unchanged. Gastrotomy tube and Matthew catheter in place. Extremity ultrasound revealed no evidence of DVT. Chest x-ray on admission revealed cardiomegaly with findings suggestive of severe hydrostatic edema versus small focal pneumonia and increasing bilateral pleural effusions. ANTIBIOTICS: Voriconazole, vancomycin IV, and cefepime. PHYSICAL EXAMINATION: GENERAL: Chronically ill appearing middle-aged woman in no distress. HEENT: Head atraumatic, normocephalic. Sclera anicteric. Buccal mucosa dry. NECK: Supple. Tracheostomy present. CHEST: Chest rise symmetrical. Breath sounds diminished at bases. HEART: S1 and S2. ABDOMEN: Obese, soft. EXTREMITIES: Bilateral edema. ASSESSMENT: 1. Severe sepsis with shock. 2. Healthcare associated pneumonia. 3. Recurrent ascites, status post paracentesis on admission with peritoneal fluid, whit blood cell count was 9.8, no evidence of spontaneous bacterial peritonitis (SBP). 4. Severe cardiomyopathy and decompensated congestive heart failure (CHF). 5. Anemia. 6. Dysphagia. 7. Muscular dystrophy. 8. Acute on chronic kidney disease. PLAN: We are going to repeat blood, urine, and sputum cultures, change Cefepime to Merrem, f/u cxr in am. Dictated By: Ansley Ingram NP /reynaldo/cabrera /Document#: [id number] MTDD
--- NOTE | 2016-09-27 08:14 | PN ---
DATE: 09/27/2016 SUBJECTIVE DATA: The patient is critically ill, but improving currently off pressor support. No other events noted. OBJECTIVE DATA: VITAL SIGNS: Blood pressure is 95/52, respirations 24, pulse 60, and temperature 98.6. HEENT: Head is normocephalic. NECK: Supple. HEART: Regular rate. LUNGS: Diminished breath sounds base. ABDOMEN: Soft, nontender to palpation. No guarding. EXTREMITIES: No clubbing, cyanosis. Positive edema. DERMATOLOGIC: Clean. No rashes. MUSCULOSKELETAL: No joint effusion. NEUROLOGIC: No change in exam. MEDICATIONS: Reviewed. LABORATORY AND DIAGNOSTIC DATA: Sodium 140, potassium , chloride 110, BUN 89, and creatinine 0.93. White count 8.0, hemoglobin 7.3, hematocrit 24.4, and platelet count is 253. ASSESSMENT AND PLAN: 1. Oliguric anuric acute kidney injury on top of chronic kidney disease stage IIIB/IV, with previous baseline creatinine of 0.6 mg/dL. Etiology of acute kidney injury secondary to sepsis possible tubular injury. The patient's urinary output remains minimal, approximately 5-10 cc over the last several hours. At this point, continue current treatment plan. Continue volume expansion with intravenous albumin. Continue antibiotic therapy. Monitor renal function closely. Please note also repeat set of urine studies and urine lytes are pending. 2. Chronic kidney disease. Etiology multifactorial. Please note, the patient's creatinine is grossly overestimating her EGFR due to significant muscular atrophy. At this point, continue to treat acute injury as stated above. 3. Septic shock. The patient is currently on antibiotic therapy. Pressor support is being weaned off. Continue current treatment plan. Continue volume expansion. Follow up with Infectious Disease. Follow up cultures. 4. Mineral bone disorder. Monitor calcium and phosphorus levels. 5. Anemia. Monitor hemoglobin and hematocrit levels. 6. Ventilatory-dependent respiratory failure. Vent settings reviewed. ABGs reviewed. Continue to monitor. 7. History of cardiomyopathy. Continue current treatment plan. 8. Dysphagia. Continue tube feeding. 9. Muscular dystrophy. 10. Acute on chronic congestive heart failure exacerbation. Continue medical management. Diuretics have been on hold in the setting of shock. Dictated By: Raymon Giordano DO /reynaldo/cabrera /Document#: [id number]
[2016-09-27] MEDS: CHLORHEXIDINE GLUCONATE 15 ML UD CUP MM SCH ×2 (08:45→21:54)
[2016-09-27] MEDS: FOLIC ACID 1 MG TAB GTB SCH (08:45)
[2016-09-27] MEDS: LACTULOSE 30ML CUP PO SCH ×2 (08:45→22:00)
[2016-09-27] MEDS: AMIODARONE 200 MG TAB GTB SCH (08:46)
[2016-09-27] MEDS: VORICONAZOLE 200 MG TAB PO SCH ×2 (08:46→22:01)
[2016-09-27] MEDS: MIDODRINE 5 MG TAB GTB SCH ×3 (08:46→21:54)
[2016-09-27] MEDS: FERROUS SULFATE (EC) 325 MG TAB PO SCH ×3 (08:47→21:55)
[2016-09-27] MEDS: MULTIVITAMINS 30 ML CUP GTB SCH (08:47)
[2016-09-27] MEDS: ASCORBIC ACID 500 MG TAB PO SCH ×2 (08:47→21:55)
[2016-09-27] MEDS: LACTOBACILLUS RHAMNOSUS CAP PO SCH ×2 (08:47→21:54)
[2016-09-27] MEDS: PANTOPRAZOLE (EC) 40 MG TAB PO SCH (09:00)
[2016-09-27] MEDS: MEROPENEM 500MG/50 ML (PMX) 50 ML IVPB SCH ×2 (09:34→23:02)
[2016-09-27] MEDS: BACITRACIN 0.9 GM OINT TOP SCH ×2 (09:34→21:00)
[2016-09-27] MEDS: SOD FERRIC GLUC COMPLX 125 MG in SOD CHLORIDE 0.9% 100 ML IVPB SCH (10:32)
[2016-09-27 12:35] LABS: BASOPHIL # 0.1 10^3/ul (0.0-0.1); BASOPHILS % 0.6 % (0.0-2.0); EOSINOPHILS # 0.5 10^3/ul (0.0-0.5); EOSINOPHILS % 5.4 % (0.0-7.0); HEMATOCRIT 26.4 % (37.0-47.0); HEMOGLOBIN 7.7 g/dl (12.0-16.0); LYMPHOCYTES # 0.7 10^3/ul (0.8-2.9); LYMPHOCYTES % 8.8 % (15.0-51.0); MEAN CORPUSCULAR HEMOGLOBIN 27.9 pg (29.0-33.0); MEAN CORPUSCULAR HGB CONC 29.2 g/dl (32.0-37.0); MEAN CORPUSCULAR VOLUME 95.7 fl (82.0-101.0); MONOCYTE # 0.4 10^3/ul (0.3-0.9); MONOCYTES % 4.9 % (0.0-11.0); NEUTROPHIL # 6.6 10^3/ul (1.6-7.5); NEUTROPHILS % 79.6 % (39.0-77.0); PLATELET COUNT 260 10^3/UL (140-415); RED BLOOD COUNT 2.76 10^6/ul (4.20-5.40); RED CELL DISTRIBUTION WIDTH 19.3 % (11.5-14.5); WHITE BLOOD COUNT 8.3 10^3/ul (4.8-10.8)
--- NOTE | 2016-09-27 13:01 | PN ---
Date/Time of Note Date/Time of Note DATE: 09/27/16 TIME: 12:51 Assessment/Plan VTE Prophylaxis VTE Prophylaxis Intervention: SCD's Lines/Catheters IV Catheter Type (from Nrsg): PICC Line Central line still needed: Yes (dificult peripheral IV acccess ) Urinary Cath still in place: Yes Reason Cath still needed: urinary retention (Stict I/o ), other (indicate) Assessment/Plan Assessment/Plan 1. Septic shock due to health care associated PNA- on levophed, titrate to off to keep >95 mm Hg, systolic 2. Acute on chronic Congestive heart failure. 3. Healthcare associated pneumonia. 4. Chronic Trach/vent dependent respiratory failure 5. Cardiomyopathy with EF of 30% to 35%, Bi-VAICD 6. ABIB/AFlutter-Currently paced-Not on anticoag 7. Delia Glabrata UTI with <10,000 cc. -Voriconazole Gtube x 7days 8. Chronic anoxic encephalopathy. 9. Dysphagia dislodged/nonfunctional G-tube. Status post gtube replacement 09/22 10. Ascites. Stable -Status post paracentesis with 3650. 11. Diabetes - A1c = 5.2. 12. Acute kidney injury on chronic kidney disease. resolved 13. History of Hypertension, now with hypertension.-Antihypertensives on hold- Defer cards for further management. 14. History of quadriplegia secondary to muscular dystrophy 15. Anemia: Hemoglobin presently stable- on Epogen 16. Pulmonary hypertension. 17. Leukocytosis,possibly 2/2 #3 &#6 18.Diarrhea-Lactulose induced? vs others DVT prophylaxis: SCDs PUD prophylaxis: Protonix Plan: IV abx as per ID- meropenem Titrate levophed to off Pulmonnary has been following, K replaced today Pt is not doing well overall, palliative to discuss goals of care appreciate other subsepciality help pt is on Midodrine for BP support will order US guided paracentesis Change protonix to IV since it can not be crushed Hb 7.2- on epogen, monitor it and Prn transfusion Subjective 24 Hr Interval Summary Free Text/Dictation on Fio2 35%, Hb low but pt stable, Bp stable Exam/Review of Systems Vital Signs Vitals Vital Signs Date Time Temp Pulse Resp B/P Pulse Ox O2 Delivery O2 Flow Rate FiO2 09/27/16 12:30 60 24 107/63 100 Mechanical Ventilator 09/27/16 12:00 96.7 09/27/16 11:03 35 Intake and Output 09/26/16 09/26/16 09/27/16 15:00 23:00 07:00 Intake Total 400.00 ml 81 ml 324.44 ml Output Total 0 ml 0 ml 90 ml Balance 400.00 ml 81 ml 234.44 ml Exam Constitutional: non-verbal ENMT: other (+ tracheostomy ) Neck: supple Respiratory: other (Bilateral coarse BS +) Cardiovascular: irregular rhythm, nl pulses Gastrointestinal: ascites, soft Results Result Diagram: 09/27/16 1219 09/27/16 0438 Results 24 hrs Laboratory Tests Test 09/26/16 14:00 09/26/16 19:01 09/26/16 20:44 09/27/16 01:00 Blood Gas Specimen Source Blood arterial Arterial Blood Date Drawn 09/26/2016 3:45:27 PM Arterial Blood pH (Temp corrected) 7.327 L Arterial Blood pCO2 (Temp correct) 35.7 Arterial Blood pO2 (Temp corrected) 79.3 L Arterial Blood HCO3 18.3 L Arterial Blood Base Excess -7.0 L Arterial Blood Oxygen Saturation 95.2 Chad Test ACCEPTAB Arterial Blood Gas Puncture Site Right Radial Arterial Blood Carboxyhemoglobin 0.1 Arterial Blood Methemoglobin 0.2 Blood Gas A-a O2 Differential 128.8 H Oxyhemoglobin Percent 94.9 Total Hemoglobin 9.5 L Blood Gas Temperature 37.0 Blood Gas Respiration Rate 24.0 Blood Gas Actual Respiration Rate 24 Blood Gas Modality VENT - AC FiO2 35.0 Blood Gas Tidal Volume 550.0 Blood Gas Low PEEP Setting 5.0 Blood Gas Notified Whom Blood Gas Notified Time 09/26/2016 3:56:52 PM Bedside Glucose 109 103 Vancomycin Level Trough 11.1 Test 09/27/16 04:38 09/27/16 06:02 09/27/16 09:33 09/27/16 12:09 White Blood Count 8.0 # Red Blood Count 2.57 L Hemoglobin 7.3 L Hematocrit 24.4 L Mean Corpuscular Volume 94.9 Mean Corpuscular Hemoglobin 28.4 L Mean Corpuscular Hemoglobin Concent 29.9 L Red Cell Distribution Width 19.3 H Platelet Count 253 # Mean Platelet Volume 10.3 Neutrophils % 73.3 Lymphocytes % 10.2 L Monocytes % 6.0 Eosinophils % 9.4 H Basophils % 0.5 Nucleated Red Blood Cells % 0.0 Neutrophils # 5.9 Lymphocytes # 0.8 Monocytes # 0.5 Eosinophils # 0.8 H Basophils # 0.0 Nucleated Red Blood Cells # 0.0 Sodium Level 140 Potassium Level 3.3 L Chloride Level 110 Carbon Dioxide Level 18 L Anion Gap 15 Blood Urea Nitrogen 89 H Creatinine 0.93 Glucose Level 69 #L Calcium Level 8.8 Phosphorus Level 5.0 H Magnesium Level 2.5 Bedside Glucose 76 72 76 Test 09/27/16 12:19 White Blood Count 8.3 Red Blood Count 2.76 L Hemoglobin 7.7 L Hematocrit 26.4 L Mean Corpuscular Volume 95.7 Mean Corpuscular Hemoglobin 27.9 L Mean Corpuscular Hemoglobin Concent 29.2 L Red Cell Distribution Width 19.3 H Platelet Count 260 Mean Platelet Volume 10.0 Neutrophils % 79.6 H Lymphocytes % 8.8 L Monocytes % 4.9 Eosinophils % 5.4 Basophils % 0.6 Nucleated Red Blood Cells % 0.0 Neutrophils # 6.6 Lymphocytes # 0.7 L Monocytes # 0.4 Eosinophils # 0.5 Basophils # 0.1 Nucleated Red Blood Cells # 0.0 Medications Medications Current Medications Ondansetron HCl (Zofran Inj) 4 mg Q6H PRN IV NAUSEA AND/OR VOMITING Last administered on 09/24/16 11:53; Admin Dose 4 MG; Start 09/15/16 at 06:30 Acetaminophen (Tylenol Tab) 650 mg Q6H PRN PO PAIN LEVEL 1-3 OR FEVER Last administered on 09/16/16 20:10; Admin Dose 650 MG; Start 09/15/16 at 06:30 Acetaminophen (Tylenol Supp) 650 mg Q6H PRN NM PAIN LEVEL 1-3 OR FEVER; Start 09/15/16 at 06:30 Amiodarone HCl (Cordarone) 200 mg DAILY GTB Last administered on 09/27/16 08: 46; Admin Dose 200 MG; Start 09/15/16 at 09:00 Bisacodyl (Dulcolax Supp) 10 mg Q24H PRN NM CONSTIPATION; Start 09/15/16 at 06: 30 Chlorhexidine Gluconate (Peridex) 15 ml BID MM Last administered on 09/27/16 08:45; Admin Dose 15 ML; Start 09/15/16 at 09:00 Docusate Sodium (Colace) 200 mg QHS PRN PO CONSTIPATION; Start 09/15/16 at 06:30 Lisinopril (Zestril) 2.5 mg BID GTB Last administered on 09/15/16 09:24; Admin Dose 2.5 MG; Start 09/15/16 at 09:00; Status Future Hold Pantoprazole (Protonix Tab) 40 mg DAILY PO Last administered on 09/26/16 09:15 ; Admin Dose 40 MG; Start 09/15/16 at 09:00 Epoetin Kt (Epogen (Non Esrd/Non Oncology)) 3,000 units MoWeFr@17 SC Last administered on 09/25/16 18:41; Admin Dose 3,000 UNITS; Start 09/16/16 at 17:00 Epoetin Kt (Epogen (Non Esrd/Non Oncology)) 2,000 units MoWeFr@17 SC Last administered on 09/25/16 18:41; Admin Dose 2,000 UNITS; Start 09/16/16 at 17:00 Diphenhydramine HCl (Benadryl) 25 mg Q6H PRN IV ITCHING Last administered on 20:41; Admin Dose 25 MG; Start 09/15/16 at 21:00 Tramadol HCl (Ultram) 50 mg Q6H PRN GTB PAIN LEVEL 6-10 Last administered on 09:49; Admin Dose 50 MG; Start 09/17/16 at 12:00 Miscellaneous Information 1 ea NOTE XX ; Start 09/17/16 at 12:00 Insulin Aspart (Novolog Insulin Pen) NOVOLOG *MILD* ALGORI... Q6 SC Last administered on 09/25/16 23:40; Admin Dose 1 UNIT; Start 09/18/16 at 06:00 Miscellaneous Information 1 ea NOTE XX ; Start 09/17/16 at 22:45 Glucose (Glutose) 15 gm Q15M PRN PO DECREASED GLUCOSE; Start 09/17/16 at 22:45 Glucose (Glutose) 22.5 gm Q15M PRN PO DECREASED GLUCOSE; Start 09/17/16 at 22:45 Dextrose (D50w Syringe) 25 ml Q15M PRN IV DECREASED GLUCOSE; Start 09/17/16 at 22:45 Dextrose (D50w Syringe) 50 ml Q15M PRN IV DECREASED GLUCOSE; Start 09/17/16 at 22:45 Glucagon (Glucagen) 1 mg Q15M PRN IM DECREASED GLUCOSE; Start 09/17/16 at 22:45 Glucose (Glutose) 15 gm Q15M PRN BUCCAL DECREASED GLUCOSE; Start 09/17/16 at 22: 45 Acetaminophen (Tylenol Tab) 650 mg Q4 PRN GTB PAIN AND OR ELEVATED TEMP Last administered on 09/23/16 00:59; Admin Dose 650 MG; Start 09/18/16 at 11:30 Albuterol (Proventil 0.083% (Neb)) 2.5 mg Q3H PRN NEB WHEEZING AND SOB; Start 09/18/16 at 11:30 Ascorbic Acid (Vitamin C) 500 mg BID PO Last administered on 09/27/16 08:47; Admin Dose 500 MG; Start 09/18/16 at 21:00 Folic Acid (Folic Acid) 1 mg DAILY GTB Last administered on 09/27/16 08:45; Admin Dose 1 MG; Start 09/19/16 at 09:00 Hydroxyzine HCl (Atarax) 25 mg Q8H PRN PO ITCHING; Start 09/18/16 at 11:30 Lorazepam (Ativan) 1 mg Q8 PRN GTB ANXIETY Last administered on 09/22/16 09:17 ; Admin Dose 1 MG; Start 09/18/16 at 11:30 Magnesium Hydroxide (Milk Of Mag) 30 ml DAILY PRN GTB CONSTIPATION Last administered on 09/23/16 17:19; Admin Dose 30 ML; Start 09/18/16 at 11:30 Sodium Biphosphate/ Sodium Phosphate (Fleet Enema Pediatric) 66.6 ml DAILY PRN NM CONSTIPATION; Start 09/18/16 at 11:30 Lactobacillus Acidophilus/ Rhamnosus (Culturelle) 1 cap BID PO Last administered on 09/27/16 08:47; Admin Dose 1 CAP; Start 09/18/16 at 21:00 Insulin Aspart (Novolog Insulin Pen) 5 unit TID SC Last administered on 20:37; Admin Dose 5 UNIT; Start 09/18/16 at 13:00 Insulin Detemir (Levemir) 18 unit HS SC Last administered on 09/27/16 01:07; Admin Dose 18 UNIT; Start 09/18/16 at 21:00 Morphine Sulfate (morphine) 2 mg Q4H PRN IV PAIN LEVEL 7-10 Last administered on 09/22/16 18:57; Admin Dose 2 MG; Start 09/19/16 at 11:30 Lorazepam (Ativan) 1 mg Q6H PRN IV ANXIETY Last administered on 09/21/16 03:19 ; Admin Dose 1 MG; Start 09/19/16 at 18:30 Midodrine (Proamatine) 5 mg TID GTB Last administered on 09/27/16 12:05; Admin Dose 5 MG; Start 09/21/16 at 06:00 Ferrous Sulfate (Ferrous Sulfate (Ec)) 325 mg TID PO Last administered on 12:05; Admin Dose 325 MG; Start 09/21/16 at 10:00 Multivitamins 30 ml 30 ml DAILY GTB Last administered on 09/27/16 08:47; Admin Dose 30 ML; Start 09/21/16 at 10:30 Vancomycin HCl (Vancocin) 250 ml @ 125 mls/hr Q5D IVPB Last administered on 23:00; Admin Dose 125 MLS/HR; Start 09/21/16 at 22:00 Voriconazole (Vfend) 200 mg BID PO Last administered on 09/27/16 08:46; Admin Dose 200 MG; Start 09/23/16 at 09:30; Stop 09/30/16 at 09:29 Bacitracin (Bacitracin Oint (Ud)) 1 applic BID TOP Last administered on 09:34; Admin Dose 1 APPLIC; Start 09/23/16 at 21:00 Metoclopramide HCl 10 mg 10 mg Q6 IV Last administered on 09/27/16 12:05; Admin Dose 10 MG; Start 09/24/16 at 18:00 Norepinephrine/ Dextrose (Levophed/D5W) 500 ml @ 1.87 mls/hr TITRATE IV Last administered on 09/25/16 20:39; Admin Dose 26.25 MLS/HR; Start 09/25/16 at 07: 00; Status Future hold Lactulose (Enulose) 20 gm BID PO Last administered on 09/27/16 08:45; Admin Dose 20 GM; Start 09/25/16 at 21:00 IV Flush 10 ml 10 ml PRN PRN IV IV PROTOCOL; Start 09/25/16 at 16:00 Meropenem/Sodium Chloride 50 ml @ 200 mls/hr Q12 IVPB Last administered on 09:34; Admin Dose 200 MLS/HR; Start 09/26/16 at 21:00 Albumin Human 100 ml @ 100 mls/hr Q8H IV Last administered on 09/27/16 08:45 ; Admin Dose 100 MLS/HR; Start 09/27/16 at 07:30; Stop 09/28/16 at 00:29 Ferric Sodium Gluconate Complex/ Sodium Chloride (Ferrlecit/NS) 110 ml @ 110 mls/hr Q24H IVPB Last administered on 09/27/16 10:32; Admin Dose 110 MLS/HR; Start 09/27/16 at 09:00; Stop 10/01/16 at 09:59 PAT RUSSELL MD Sep 27, 2016 13:01
--- NOTE | 2016-09-27 14:35 | CONS ---
Date/Time of Note Date/Time of Note DATE: 09/27/16 TIME: 14:33 Consult Date/Type/Reason Admit Date/Time Sep 15, 2016 at 01:59 Initial Consult Date 09/18/16 Type of Consultation: Pulmonary Subjective Patient more comfortable this morning off vasopressors. Objective Vital Signs Date Time Temp Pulse Resp B/P Pulse Ox O2 Delivery O2 Flow Rate FiO2 09/27/16 12:30 60 24 107/63 100 Mechanical Ventilator 09/27/16 12:00 96.7 09/27/16 11:03 35 Intake and Output 09/26/16 09/26/16 09/27/16 15:00 23:00 07:00 Intake Total 400.00 ml 81 ml 324.44 ml Output Total 0 ml 0 ml 90 ml Balance 400.00 ml 81 ml 234.44 ml Exam PHYSICAL EXAMINATION GENERAL: Elderly lady on mechanical ventilation via tracheostomy VITAL SIGNS: see below. HEENT: Pupils equal, round, and reactive to light. Tracheostomy site clean and intact. CARDIAC: S1, S2, systolic ejection murmur. CHEST: Diminished air entry bilaterally. ABDOMEN: Mildly distended. Diminished bowel sounds. EXTREMITIES: No cyanosis, clubbing edema +1 NEUROLOGIC: Generalized weakness Results/Medications Result Diagram: 09/27/16 1219 09/27/16 0438 Results 24 hrs Laboratory Tests Test 09/26/16 19:01 09/26/16 20:44 09/27/16 01:00 09/27/16 04:38 Bedside Glucose 109 103 Vancomycin Level Trough 11.1 White Blood Count 8.0 # Red Blood Count 2.57 L Hemoglobin 7.3 L Hematocrit 24.4 L Mean Corpuscular Volume 94.9 Mean Corpuscular Hemoglobin 28.4 L Mean Corpuscular Hemoglobin Concent 29.9 L Red Cell Distribution Width 19.3 H Platelet Count 253 # Mean Platelet Volume 10.3 Neutrophils % 73.3 Lymphocytes % 10.2 L Monocytes % 6.0 Eosinophils % 9.4 H Basophils % 0.5 Nucleated Red Blood Cells % 0.0 Neutrophils # 5.9 Lymphocytes # 0.8 Monocytes # 0.5 Eosinophils # 0.8 H Basophils # 0.0 Nucleated Red Blood Cells # 0.0 Sodium Level 140 Potassium Level 3.3 L Chloride Level 110 Carbon Dioxide Level 18 L Anion Gap 15 Blood Urea Nitrogen 89 H Creatinine 0.93 Glucose Level 69 #L Calcium Level 8.8 Phosphorus Level 5.0 H Magnesium Level 2.5 Test 09/27/16 06:02 09/27/16 09:33 09/27/16 12:09 09/27/16 12:19 Bedside Glucose 76 72 76 White Blood Count 8.3 Red Blood Count 2.76 L Hemoglobin 7.7 L Hematocrit 26.4 L Mean Corpuscular Volume 95.7 Mean Corpuscular Hemoglobin 27.9 L Mean Corpuscular Hemoglobin Concent 29.2 L Red Cell Distribution Width 19.3 H Platelet Count 260 Mean Platelet Volume 10.0 Neutrophils % 79.6 H Lymphocytes % 8.8 L Monocytes % 4.9 Eosinophils % 5.4 Basophils % 0.6 Nucleated Red Blood Cells % 0.0 Neutrophils # 6.6 Lymphocytes # 0.7 L Monocytes # 0.4 Eosinophils # 0.5 Basophils # 0.1 Nucleated Red Blood Cells # 0.0 Medications Current Medications Ondansetron HCl (Zofran Inj) 4 mg Q6H PRN IV NAUSEA AND/OR VOMITING Last administered on 09/24/16 11:53; Admin Dose 4 MG; Start 09/15/16 at 06:30 Acetaminophen (Tylenol Tab) 650 mg Q6H PRN PO PAIN LEVEL 1-3 OR FEVER Last administered on 09/16/16 20:10; Admin Dose 650 MG; Start 09/15/16 at 06:30 Acetaminophen (Tylenol Supp) 650 mg Q6H PRN MA PAIN LEVEL 1-3 OR FEVER; Start 09/15/16 at 06:30 Amiodarone HCl (Cordarone) 200 mg DAILY GTB Last administered on 09/27/16 08: 46; Admin Dose 200 MG; Start 09/15/16 at 09:00 Bisacodyl (Dulcolax Supp) 10 mg Q24H PRN MA CONSTIPATION; Start 09/15/16 at 06: 30 Chlorhexidine Gluconate (Peridex) 15 ml BID MM Last administered on 09/27/16 08:45; Admin Dose 15 ML; Start 09/15/16 at 09:00 Docusate Sodium (Colace) 200 mg QHS PRN PO CONSTIPATION; Start 09/15/16 at 06:30 Lisinopril (Zestril) 2.5 mg BID GTB Last administered on 09/15/16 09:24; Admin Dose 2.5 MG; Start 09/15/16 at 09:00; Status Future Hold Epoetin Kt (Epogen (Non Esrd/Non Oncology)) 3,000 units MoWeFr@17 SC Last administered on 09/25/16 18:41; Admin Dose 3,000 UNITS; Start 09/16/16 at 17:00 Epoetin Kt (Epogen (Non Esrd/Non Oncology)) 2,000 units MoWeFr@17 SC Last administered on 09/25/16 18:41; Admin Dose 2,000 UNITS; Start 09/16/16 at 17:00 Diphenhydramine HCl (Benadryl) 25 mg Q6H PRN IV ITCHING Last administered on 20:41; Admin Dose 25 MG; Start 09/15/16 at 21:00 Tramadol HCl (Ultram) 50 mg Q6H PRN GTB PAIN LEVEL 6-10 Last administered on 09:49; Admin Dose 50 MG; Start 09/17/16 at 12:00 Miscellaneous Information 1 ea NOTE XX ; Start 09/17/16 at 12:00 Insulin Aspart (Novolog Insulin Pen) NOVOLOG *MILD* ALGORI... Q6 SC Last administered on 09/25/16 23:40; Admin Dose 1 UNIT; Start 09/18/16 at 06:00 Miscellaneous Information 1 ea NOTE XX ; Start 09/17/16 at 22:45 Glucose (Glutose) 15 gm Q15M PRN PO DECREASED GLUCOSE; Start 09/17/16 at 22:45 Glucose (Glutose) 22.5 gm Q15M PRN PO DECREASED GLUCOSE; Start 09/17/16 at 22:45 Dextrose (D50w Syringe) 25 ml Q15M PRN IV DECREASED GLUCOSE; Start 09/17/16 at 22:45 Dextrose (D50w Syringe) 50 ml Q15M PRN IV DECREASED GLUCOSE; Start 09/17/16 at 22:45 Glucagon (Glucagen) 1 mg Q15M PRN IM DECREASED GLUCOSE; Start 09/17/16 at 22:45 Glucose (Glutose) 15 gm Q15M PRN BUCCAL DECREASED GLUCOSE; Start 09/17/16 at 22: 45 Acetaminophen (Tylenol Tab) 650 mg Q4 PRN GTB PAIN AND OR ELEVATED TEMP Last administered on 09/23/16 00:59; Admin Dose 650 MG; Start 09/18/16 at 11:30 Albuterol (Proventil 0.083% (Neb)) 2.5 mg Q3H PRN NEB WHEEZING AND SOB; Start 09/18/16 at 11:30 Ascorbic Acid (Vitamin C) 500 mg BID PO Last administered on 09/27/16 08:47; Admin Dose 500 MG; Start 09/18/16 at 21:00 Folic Acid (Folic Acid) 1 mg DAILY GTB Last administered on 09/27/16 08:45; Admin Dose 1 MG; Start 09/19/16 at 09:00 Hydroxyzine HCl (Atarax) 25 mg Q8H PRN PO ITCHING; Start 09/18/16 at 11:30 Lorazepam (Ativan) 1 mg Q8 PRN GTB ANXIETY Last administered on 09/22/16 09:17 ; Admin Dose 1 MG; Start 09/18/16 at 11:30 Magnesium Hydroxide (Milk Of Mag) 30 ml DAILY PRN GTB CONSTIPATION Last administered on 09/23/16 17:19; Admin Dose 30 ML; Start 09/18/16 at 11:30 Sodium Biphosphate/ Sodium Phosphate (Fleet Enema Pediatric) 66.6 ml DAILY PRN MA CONSTIPATION; Start 09/18/16 at 11:30 Lactobacillus Acidophilus/ Rhamnosus (Culturelle) 1 cap BID PO Last administered on 09/27/16 08:47; Admin Dose 1 CAP; Start 09/18/16 at 21:00 Insulin Aspart (Novolog Insulin Pen) 5 unit TID SC Last administered on 20:37; Admin Dose 5 UNIT; Start 09/18/16 at 13:00 Insulin Detemir (Levemir) 18 unit HS SC Last administered on 09/27/16 01:07; Admin Dose 18 UNIT; Start 09/18/16 at 21:00 Morphine Sulfate (morphine) 2 mg Q4H PRN IV PAIN LEVEL 7-10 Last administered on 09/22/16 18:57; Admin Dose 2 MG; Start 09/19/16 at 11:30 Lorazepam (Ativan) 1 mg Q6H PRN IV ANXIETY Last administered on 09/21/16 03:19 ; Admin Dose 1 MG; Start 09/19/16 at 18:30 Midodrine (Proamatine) 5 mg TID GTB Last administered on 09/27/16 12:05; Admin Dose 5 MG; Start 09/21/16 at 06:00 Ferrous Sulfate (Ferrous Sulfate (Ec)) 325 mg TID PO Last administered on 12:05; Admin Dose 325 MG; Start 09/21/16 at 10:00 Multivitamins 30 ml 30 ml DAILY GTB Last administered on 09/27/16 08:47; Admin Dose 30 ML; Start 09/21/16 at 10:30 Vancomycin HCl (Vancocin) 250 ml @ 125 mls/hr Q5D IVPB Last administered on 23:00; Admin Dose 125 MLS/HR; Start 09/21/16 at 22:00 Voriconazole (Vfend) 200 mg BID PO Last administered on 09/27/16 08:46; Admin Dose 200 MG; Start 09/23/16 at 09:30; Stop 09/30/16 at 09:29 Bacitracin (Bacitracin Oint (Ud)) 1 applic BID TOP Last administered on 09:34; Admin Dose 1 APPLIC; Start 09/23/16 at 21:00 Metoclopramide HCl 10 mg 10 mg Q6 IV Last administered on 09/27/16 12:05; Admin Dose 10 MG; Start 09/24/16 at 18:00 Norepinephrine/ Dextrose (Levophed/D5W) 500 ml @ 1.87 mls/hr TITRATE IV Last administered on 09/25/16 20:39; Admin Dose 26.25 MLS/HR; Start 09/25/16 at 07: 00; Status Future hold Lactulose (Enulose) 20 gm BID PO Last administered on 09/27/16 08:45; Admin Dose 20 GM; Start 09/25/16 at 21:00 IV Flush 10 ml 10 ml PRN PRN IV IV PROTOCOL; Start 09/25/16 at 16:00 Meropenem/Sodium Chloride 50 ml @ 200 mls/hr Q12 IVPB Last administered on 09:34; Admin Dose 200 MLS/HR; Start 09/26/16 at 21:00 Albumin Human 100 ml @ 100 mls/hr Q8H IV Last administered on 09/27/16 08:45 ; Admin Dose 100 MLS/HR; Start 09/27/16 at 07:30; Stop 09/28/16 at 00:29 Ferric Sodium Gluconate Complex/ Sodium Chloride (Ferrlecit/NS) 110 ml @ 110 mls/hr Q24H IVPB Last administered on 09/27/16 10:32; Admin Dose 110 MLS/HR; Start 09/27/16 at 09:00; Stop 10/01/16 at 09:59 Lansoprazole (Prevacid) 30 mg DAILY@06 GTB ; Start 09/28/16 at 06:00 Assessment/Plan Chief Complaint/Hosp Course Additional Assessment/Plan IMP: 1. VDRF 2. HCAP 3. CHF decreased ejection fraction but evidence of pulmonary hypertension. 4. CMY 5. Encephalopathy secondary to sepsis. 6. Status post septic shock likely polymicrobial sepsis 7. Mixed acidosis. 8. Anemia multifactorial RECS: 1. Vent support continue current settings 2. BDs/CPT 3. Abx per ID 4. Volume resuscitation. Intravenous bicarbonate. 5. Vasopressors keep MAP > 65. 6. Panculture 7. CT abdomen noted 8. Transfuse 1 unit packed red blood cells Disposition Continue ICU care prognosis guarded. Critical care time 40 minutes. Problems: YUNIEL JACK MD, [facility] Sep 27, 2016 14:35
--- NOTE | 2016-09-27 15:38 | PN ---
DATE: 09/27/2016 SUBJECTIVE: No acute changes overnight. The patient is doing much better. She is alert, looks comfortable, and off pressors. Temperature 96.7, pulse 63, respirations 24, blood pressure 117/67, saturation 100 on FiO2 of 35. WBC 8.3, H and H 7.7 and 26.4, platelets 260, neutrophils 79.6, BUN 89, creatinine 0.93. Blood cultures repeated yesterday, preliminary negative, urine and sputum cultures are pending. CT of the abdomen and pelvis from yesterday revealed cholelithiasis, moderate to large volume of ascites not significantly changed, a 5.5 cm uterine fibroid, endometrial thickening, extensive patchy consolidative opacities in both lower lungs with a background of diffuse ground-glass lung opacification suggestive of pulmonary edema, possibly with superimposed pneumonia. Extensive subcutaneous edema. Indwelling: Trach bag, Matthew, rectal tube, PICC line placed on September 25. Antimicrobials: Vancomycin, voriconazole, meropenem. OBJECTIVE DATA: GENERAL: Chronically ill-appearing, middle-aged woman, who is alert, communicative, in no distress. HEENT: Head atraumatic, normocephalic. Sclerae anicteric. Buccal mucosa dry. NECK: Obese, tracheostomy present. CHEST: Chest rise symmetrical. Breath sounds with bilateral scattered crackles. HEART: S1, S2. ABDOMEN: Distended, positive ascites. Bowel sounds hypoactive. EXTREMITIES: Bilateral edema. ASSESSMENT: 1. Septic shock, off pressors. 2. Healthcare associated pneumonia. 3. Chronic respiratory failure. 4. Recurrent ascites, status post multiple paracentesis, no evidence of SBP. 5. Status post Delia glabrata urinary tract infection. 6. Significant muscle dystrophy. 7. Coronary artery disease, cardiomyopathy, and decompensated congestive heart failure. 8. Dysphagia. 9. Acute on chronic kidney injury. PLAN: The patient is improving on appropriate antibiotics, continue present care, await for final cultures, plan for repeat paracentesis. Dictated By: Ansley Ingram NP /reynaldo/rolly /Document#: [id number]
[2016-09-28] VITALS (80 sets, daily range): BP systolic 55–128; BP diastolic 22–81; PULSE 60–77; RESP 0–25
[2016-09-28] MEDS: METOCLOPRAMIDE 10 MG INJ IV SCH ×5 (00:30→23:54)
[2016-09-28] MEDS: ALBUTEROL 18 GM INHALER INH SCH ×6 (00:59→21:20)
[2016-09-28] MEDS: LORAZEPAM 2 MG INJ IV PRN (01:48)
[2016-09-28 05:42] LABS: ABNORMAL IP MESSAGE 1; BASOPHIL # 0.1 10^3/ul (0.0-0.1); BASOPHILS % 0.7 % (0.0-2.0); EOSINOPHILS # 0.6 10^3/ul (0.0-0.5); HEMATOCRIT 27.2 % (37.0-47.0); HEMOGLOBIN 8.1 g/dl (12.0-16.0); LYMPHOCYTES # 0.5 10^3/ul (0.8-2.9); LYMPHOCYTES % 6.2 % (15.0-51.0); MEAN CORPUSCULAR HEMOGLOBIN 28.4 pg (29.0-33.0); MEAN CORPUSCULAR HGB CONC 29.8 g/dl (32.0-37.0); MEAN CORPUSCULAR VOLUME 95.4 fl (82.0-101.0); MEAN PLATELET VOLUME 10.6 fl (7.4-10.4); MONOCYTE # 0.4 10^3/ul (0.3-0.9); MONOCYTES % 5.2 % (0.0-11.0); NEUTROPHIL # 5.8 10^3/ul (1.6-7.5); NEUTROPHILS % 79.3 % (39.0-77.0); PLATELET COUNT 239 10^3/UL (140-415); RED BLOOD COUNT 2.85 10^6/ul (4.20-5.40); RED CELL DISTRIBUTION WIDTH 18.9 % (11.5-14.5); WHITE BLOOD COUNT 7.3 10^3/ul (4.8-10.8)
[2016-09-28 05:49] LABS: POSITIVE DIFF @See below
[2016-09-28] MEDS: INSULIN ASPART [NOVOLOG] 3 ML PEN SC SCH ×7 (06:00→20:06)
[2016-09-28] MEDS: LANSOPRAZOLE 30 MG CAP GTB SCH (06:02)
[2016-09-28 06:16] LABS: CREATININE 0.94 mg/dl (0.44-1.00); MAGNESIUM 2.5 mg/dl (1.7-2.5); PHOSPHORUS 4.5 mg/dl (2.5-4.9); POTASSIUM 3.1 mmol/L (3.5-5.1)
[2016-09-28] MEDS ORDERED: POTASSIUM CHLORIDE 20 MEQ POWDER FOR ORAL SOLN JT ONE (07:30)
--- NOTE | 2016-09-28 08:02 | PN ---
DATE: 09/28/2016 SUBJECTIVE DATA: Patient remains critical, but stable. No other events noted. No hemoptysis, hematemesis, hematochezia. OBJECTIVE DATA: VITAL SIGNS: Blood pressure 92/53, respirations 21, pulse 60, temperature 98.7. Is and Os: The patient had 885 in, 525 out. HEENT: Head is normocephalic. NECK: Supple. HEART: Regular rate. LUNGS: Diminished breath sounds at the base. ABDOMEN: Soft, nontender to palpation. No rebound or guarding. EXTREMITIES: Negative for clubbing, cyanosis. Positive edema. DERMATOLOGIC: No rashes. MUSCULOSKELETAL: No joint effusion. NEUROLOGIC: No change in exam. MEDICATIONS: Reviewed. LABORATORY DATA: Show sodium 142, potassium 3.1, chloride 113, bicarb 18, BUN 84, creatinine 0.94. White count 7.3, hemoglobin 8.1, hematocrit 27.2, platelet count is 239. ASSESSMENT AND PLAN: 1. Oliguric acute kidney injury on top of chronic kidney disease stage IIIB/IV, with previous baseline creatinine 0.6 mg/dL. Etiology of acute kidney injury secondary to sepsis and acute tubular necrosis. The patient's urinary output has improved, but still remains low, approximately 20 cc last 8 hours. Plan at this point is to repeat a urinalysis with micro analysis. Will recheck urine lytes. Will continue volume expansion with IV albumin. Continue antibiotic therapy. Monitor renal function closely. 2. Chronic kidney disease, etiology multifactorial. Please note, the patient's creatinine is grossly overestimating her EGFR due to significant muscular atrophy. The patient is currently in acute kidney injury as stated above. Continue current treatment plan. 3. Sepsis, status post shock. The patient is currently off pressor support. Continue antibiotic therapy. Continue gentle volume expansion. Follow up cultures. 4. Mineral bone disorder. Continue to monitor calcium and phosphorus levels. 5. Metabolic acidosis secondary to acute kidney injury. The patient's last ABG was reviewed. Will continue to monitor. Will defer bicarbonate therapy. 6. Hypokalemia. Replete with potassium chloride. 7. Anemia. Monitor H and H levels. 8. Ventilatory-dependent respiratory failure. Vent settings reviewed. ABGs reviewed. Continue to monitor. 9. History of cardiomyopathy. Continue current treatment plan. 10. Dysphagia, status post percutaneous endoscopic gastrostomy. 11. Muscular dystrophy. 12. Acute on chronic congestive heart failure exacerbation. Continue current medical management. Dictated By: Raymon Giordano DO /[email or web address]/[email or web address] /Document#: [id number]
[2016-09-28] MEDS: LACTULOSE 30ML CUP PO SCH ×2 (08:26→20:03)
[2016-09-28] MEDS: CHLORHEXIDINE GLUCONATE 15 ML UD CUP MM SCH ×2 (08:27→20:03)
[2016-09-28] MEDS: MEROPENEM 500MG/50 ML (PMX) 50 ML IVPB SCH ×2 (08:27→20:15)
[2016-09-28] MEDS: ALBUMIN HUMAN 25% 100 ML IV SCH ×3 (08:29→23:54)
[2016-09-28] MEDS: LACTOBACILLUS RHAMNOSUS CAP PO SCH ×2 (08:30→20:03)
[2016-09-28] MEDS: MULTIVITAMINS 30 ML CUP GTB SCH (08:30)
--- NOTE | 2016-09-28 08:30 | RADRPT ---
PROCEDURE: XR Chest. CLINICAL INDICATION: SOB, on ventilator TECHNIQUE: PA and Lateral views of the chest were obtained. COMPARISON: Chest x-ray 09/26/2016 FINDINGS: Tracheostomy tube remains in adequate position. Right PICC line terminating in the lower superior ve na cava is also stable position. The left chest wall biventricular pacemaker/defibrillator is stabl e. Cardiac silhouette remains enlarged. There are atherosclerotic calcifications of the aorta. No pneumothorax is identified. Small bilateral pleural effusions are stable. Diffuse bilateral ill-defined opacities persist and likely represent increased pulmonary edema. There are degenerative changes of the visualized spine. IMPRESSION: 1. Increased pulmonary edema. 2. Small bilateral pleural effusions, stable. 3. Cardiomegaly. 4. Thoracic aortic atherosclerotic disease. RPTAT: [facility] Physician [facility] Date Time Electronically viewed and signed by Abiel Herrera Physician on 09/28/2016 08:30 RUSH/
[2016-09-28] MEDS: MIDODRINE 5 MG TAB GTB SCH ×3 (08:31→20:02)
[2016-09-28] MEDS: ASCORBIC ACID 500 MG TAB PO SCH ×2 (08:31→20:03)
[2016-09-28] MEDS: FERROUS SULFATE (EC) 325 MG TAB PO SCH ×3 (08:31→20:03)
[2016-09-28] MEDS: AMIODARONE 200 MG TAB GTB SCH (08:31)
[2016-09-28 08:32] LABS: AADO2 Arterial 108.5 mmHg (7.0-24.0); Allen Test ACCEPTAB; Arterial Base Excess -8.9 mmol/L (-3.0-3); Arterial COHb 0.1 % (0.0-3.0); Arterial HCO3 16.3 mmol/L (22.0-26.0); Arterial MetHb 0.2 % (0.0-1.5); Arterial Total Hemglobin 10.9 g/dl (12.0-18.0); MODE VENT - AC
[2016-09-28] MEDS: BACITRACIN 0.9 GM OINT TOP SCH ×2 (08:32→20:07)
[2016-09-28] MEDS: VORICONAZOLE 200 MG TAB PO SCH ×2 (09:26→20:14)
[2016-09-28] MEDS: FOLIC ACID 1 MG TAB GTB SCH (09:26)
--- NOTE | 2016-09-28 10:20 | CONS ---
Date/Time of Note Date/Time of Note DATE: 09/28/16 TIME: 10:18 Assessment/Plan Assessment/Plan Chief Complaint/Hosp Course 50-year-old female resident of a subacute facility was PEG trach admitted with healthcare acquired pneumonia. We have an incomplete database except the patient has multiple comorbid major medical problems including muscular dystrophy morbid obesity type 2 diabetes cardiomyopathy with an EF of 30-35 per. When brought to the emergency room 100% FiO2 for sats were 100 she was diagnosed with bilateral infiltrate and admitted. Patient is a non-historian, reason to be ascertained from patient's old medical records or family members. It is noted in patient's medical records that she has altered mental status etiology unknown. Problems: Additional Assessment/Plan I have had multiple conversation with patient's . He insists that his would want to live under any circumstances and he refuses to change her CODE STATUS. I do not consider this to be a bioethics consultation more a spiritual or ethical decision on his part especially since wanted to continue with all measures to sustain her life. Consultation Date/Type/Reason Admit Date/Time Sep 15, 2016 at 01:59 Initial Consult Date Postdated note for hospital visit on 09/25/2016 Type of Consultation: Pulmonary Exam/Review of Systems Vital Signs Vitals Vital Signs Date Time Temp Pulse Resp B/P Pulse Ox O2 Delivery O2 Flow Rate FiO2 09/28/16 10:15 60 24 90/50 100 09/28/16 10:00 Mechanical Ventilator 09/28/16 05:49 35 09/28/16 04:00 98.7 Intake and Output 09/27/16 09/27/16 09/28/16 14:59 22:59 06:59 Intake Total 490 ml 345 ml 50 ml Output Total 230 ml 295 ml Balance 260 ml 50 ml 50 ml Results Result Diagram: 09/28/16 0440 09/28/16 0440 Results 24 hrs Laboratory Tests Test 09/27/16 12:09 09/27/16 12:19 09/27/16 17:29 09/27/16 22:07 Bedside Glucose 76 87 98 White Blood Count 8.3 Red Blood Count 2.76 L Hemoglobin 7.7 L Hematocrit 26.4 L Mean Corpuscular Volume 95.7 Mean Corpuscular Hemoglobin 27.9 L Mean Corpuscular Hemoglobin Concent 29.2 L Red Cell Distribution Width 19.3 H Platelet Count 260 Mean Platelet Volume 10.0 Neutrophils % 79.6 H Lymphocytes % 8.8 L Monocytes % 4.9 Eosinophils % 5.4 Basophils % 0.6 Nucleated Red Blood Cells % 0.0 Neutrophils # 6.6 Lymphocytes # 0.7 L Monocytes # 0.4 Eosinophils # 0.5 Basophils # 0.1 Nucleated Red Blood Cells # 0.0 Test 09/28/16 00:28 09/28/16 04:40 09/28/16 05:21 09/28/16 07:00 Bedside Glucose 97 White Blood Count 7.3 Red Blood Count 2.85 L Hemoglobin 8.1 L Hematocrit 27.2 L Mean Corpuscular Volume 95.4 Mean Corpuscular Hemoglobin 28.4 L Mean Corpuscular Hemoglobin Concent 29.8 L Red Cell Distribution Width 18.9 H Platelet Count 239 Mean Platelet Volume 10.6 H Neutrophils % 79.3 H Lymphocytes % 6.2 L Monocytes % 5.2 Eosinophils % 8.0 H Basophils % 0.7 Nucleated Red Blood Cells % 0.0 Neutrophils # 5.8 Lymphocytes # 0.5 L Monocytes # 0.4 Eosinophils # 0.6 H Basophils # 0.1 Nucleated Red Blood Cells # 0.0 Sodium Level 142 Potassium Level 3.1 L Chloride Level 113 H Carbon Dioxide Level 18 L Anion Gap 14 Blood Urea Nitrogen 84 H Creatinine 0.94 Glucose Level 91 Calcium Level 9.0 Phosphorus Level 4.5 Magnesium Level 2.5 Lab Scanned Report BLOOD TRANSFUSION Blood Gas Specimen Source Blood arterial Arterial Blood Date Drawn 09/28/2016 8:00:44 AM Arterial Blood pH (Temp corrected) 7.311 L Arterial Blood pCO2 (Temp correct) 33.1 L Arterial Blood pO2 (Temp corrected) 102.6 H Arterial Blood HCO3 16.3 L Arterial Blood Base Excess -8.9 L Arterial Blood Oxygen Saturation 97.3 Chad Test ACCEPTAB Arterial Blood Gas Puncture Site Right Radial Arterial Blood Carboxyhemoglobin 0.1 Arterial Blood Methemoglobin 0.2 Blood Gas A-a O2 Differential 108.5 H Oxyhemoglobin Percent 97.0 Total Hemoglobin 10.9 L Blood Gas Temperature 37.0 Blood Gas Respiration Rate 24.0 Blood Gas Actual Respiration Rate 24 Blood Gas Modality VENT - AC FiO2 35.0 Blood Gas Tidal Volume 550.0 Blood Gas Notified Whom BG Blood Gas Notified Time 09/28/2016 8:32:31 AM Test 09/28/16 08:46 Bedside Glucose 89 Medications Medications Current Medications Ondansetron HCl (Zofran Inj) 4 mg Q6H PRN IV NAUSEA AND/OR VOMITING Last administered on 09/24/16 11:53; Admin Dose 4 MG; Start 09/15/16 at 06:30 Acetaminophen (Tylenol Tab) 650 mg Q6H PRN PO PAIN LEVEL 1-3 OR FEVER Last administered on 09/16/16 20:10; Admin Dose 650 MG; Start 09/15/16 at 06:30 Acetaminophen (Tylenol Supp) 650 mg Q6H PRN OR PAIN LEVEL 1-3 OR FEVER; Start 09/15/16 at 06:30 Amiodarone HCl (Cordarone) 200 mg DAILY GTB Last administered on 09/28/16 08: 31; Admin Dose 200 MG; Start 09/15/16 at 09:00 Bisacodyl (Dulcolax Supp) 10 mg Q24H PRN OR CONSTIPATION; Start 09/15/16 at 06: 30 Chlorhexidine Gluconate (Peridex) 15 ml BID MM Last administered on 09/28/16 08:27; Admin Dose 15 ML; Start 09/15/16 at 09:00 Docusate Sodium (Colace) 200 mg QHS PRN PO CONSTIPATION; Start 09/15/16 at 06:30 Lisinopril (Zestril) 2.5 mg BID GTB Last administered on 09/15/16 09:24; Admin Dose 2.5 MG; Start 09/15/16 at 09:00; Status Future Hold Epoetin Kt (Epogen (Non Esrd/Non Oncology)) 3,000 units MoWeFr@17 SC Last administered on 09/25/16 18:41; Admin Dose 3,000 UNITS; Start 09/16/16 at 17:00 Epoetin Kt (Epogen (Non Esrd/Non Oncology)) 2,000 units MoWeFr@17 SC Last administered on 09/25/16 18:41; Admin Dose 2,000 UNITS; Start 09/16/16 at 17:00 Diphenhydramine HCl (Benadryl) 25 mg Q6H PRN IV ITCHING Last administered on 20:41; Admin Dose 25 MG; Start 09/15/16 at 21:00 Tramadol HCl (Ultram) 50 mg Q6H PRN GTB PAIN LEVEL 6-10 Last administered on 09:49; Admin Dose 50 MG; Start 09/17/16 at 12:00 Miscellaneous Information 1 ea NOTE XX ; Start 09/17/16 at 12:00 Insulin Aspart (Novolog Insulin Pen) NOVOLOG *MILD* ALGORI... Q6 SC Last administered on 09/25/16 23:40; Admin Dose 1 UNIT; Start 09/18/16 at 06:00 Miscellaneous Information 1 ea NOTE XX ; Start 09/17/16 at 22:45 Glucose (Glutose) 15 gm Q15M PRN PO DECREASED GLUCOSE; Start 09/17/16 at 22:45 Glucose (Glutose) 22.5 gm Q15M PRN PO DECREASED GLUCOSE; Start 09/17/16 at 22:45 Dextrose (D50w Syringe) 25 ml Q15M PRN IV DECREASED GLUCOSE; Start 09/17/16 at 22:45 Dextrose (D50w Syringe) 50 ml Q15M PRN IV DECREASED GLUCOSE; Start 09/17/16 at 22:45 Glucagon (Glucagen) 1 mg Q15M PRN IM DECREASED GLUCOSE; Start 09/17/16 at 22:45 Glucose (Glutose) 15 gm Q15M PRN BUCCAL DECREASED GLUCOSE; Start 09/17/16 at 22: 45 Acetaminophen (Tylenol Tab) 650 mg Q4 PRN GTB PAIN AND OR ELEVATED TEMP Last administered on 09/23/16 00:59; Admin Dose 650 MG; Start 09/18/16 at 11:30 Albuterol (Proventil 0.083% (Neb)) 2.5 mg Q3H PRN NEB WHEEZING AND SOB; Start 09/18/16 at 11:30 Ascorbic Acid (Vitamin C) 500 mg BID PO Last administered on 09/28/16 08:31; Admin Dose 500 MG; Start 09/18/16 at 21:00 Folic Acid (Folic Acid) 1 mg DAILY GTB Last administered on 09/28/16 09:26; Admin Dose 1 MG; Start 09/19/16 at 09:00 Hydroxyzine HCl (Atarax) 25 mg Q8H PRN PO ITCHING; Start 09/18/16 at 11:30 Lorazepam (Ativan) 1 mg Q8 PRN GTB ANXIETY Last administered on 09/22/16 09:17 ; Admin Dose 1 MG; Start 09/18/16 at 11:30 Magnesium Hydroxide (Milk Of Mag) 30 ml DAILY PRN GTB CONSTIPATION Last administered on 09/23/16 17:19; Admin Dose 30 ML; Start 09/18/16 at 11:30 Sodium Biphosphate/ Sodium Phosphate (Fleet Enema Pediatric) 66.6 ml DAILY PRN OR CONSTIPATION; Start 09/18/16 at 11:30 Lactobacillus Acidophilus/ Rhamnosus (Culturelle) 1 cap BID PO Last administered on 09/28/16 08:30; Admin Dose 1 CAP; Start 09/18/16 at 21:00 Insulin Aspart (Novolog Insulin Pen) 5 unit TID SC Last administered on 20:37; Admin Dose 5 UNIT; Start 09/18/16 at 13:00 Insulin Detemir (Levemir) 18 unit HS SC Last administered on 09/27/16 22:10; Admin Dose 18 UNIT; Start 09/18/16 at 21:00 Morphine Sulfate (morphine) 2 mg Q4H PRN IV PAIN LEVEL 7-10 Last administered on 09/22/16 18:57; Admin Dose 2 MG; Start 09/19/16 at 11:30 Lorazepam (Ativan) 1 mg Q6H PRN IV ANXIETY Last administered on 09/28/16 01:48 ; Admin Dose 1 MG; Start 09/19/16 at 18:30 Midodrine (Proamatine) 5 mg TID GTB Last administered on 09/28/16 08:31; Admin Dose 5 MG; Start 09/21/16 at 06:00 Ferrous Sulfate (Ferrous Sulfate (Ec)) 325 mg TID PO Last administered on 08:31; Admin Dose 325 MG; Start 09/21/16 at 10:00 Multivitamins 30 ml 30 ml DAILY GTB Last administered on 09/28/16 08:30; Admin Dose 30 ML; Start 09/21/16 at 10:30 Vancomycin HCl (Vancocin) 250 ml @ 125 mls/hr Q5D IVPB Last administered on 23:00; Admin Dose 125 MLS/HR; Start 09/21/16 at 22:00 Voriconazole (Vfend) 200 mg BID PO Last administered on 09/28/16 09:26; Admin Dose 200 MG; Start 09/23/16 at 09:30; Stop 09/30/16 at 09:29 Bacitracin (Bacitracin Oint (Ud)) 1 applic BID TOP Last administered on 08:32; Admin Dose 1 APPLIC; Start 09/23/16 at 21:00 Metoclopramide HCl 10 mg 10 mg Q6 IV Last administered on 09/28/16 05:58; Admin Dose 10 MG; Start 09/24/16 at 18:00 Norepinephrine/ Dextrose (Levophed/D5W) 500 ml @ 1.87 mls/hr TITRATE IV Last administered on 09/25/16 20:39; Admin Dose 26.25 MLS/HR; Start 09/25/16 at 07: 00; Status Future hold Lactulose (Enulose) 20 gm BID PO Last administered on 09/28/16 08:26; Admin Dose 20 GM; Start 09/25/16 at 21:00 IV Flush 10 ml 10 ml PRN PRN IV IV PROTOCOL; Start 09/25/16 at 16:00 Meropenem/Sodium Chloride 50 ml @ 200 mls/hr Q12 IVPB Last administered on 08:27; Admin Dose 200 MLS/HR; Start 09/26/16 at 21:00 Ferric Sodium Gluconate Complex/ Sodium Chloride (Ferrlecit/NS) 110 ml @ 110 mls/hr Q24H IVPB Last administered on 09/27/16 10:32; Admin Dose 110 MLS/HR; Start 09/27/16 at 09:00; Stop 10/01/16 at 09:59 Lansoprazole 30 mg 30 mg DAILY@06 GTB Last administered on 09/28/16 06:02; Admin Dose 30 MG; Start 09/28/16 at 06:00 Albumin Human (Albumin Human 25%) 100 ml @ 100 mls/hr Q8H IV Last administered on 09/28/16 08:29; Admin Dose 100 MLS/HR; Start 09/28/16 at 07:30 ; Stop 09/29/16 at 00:29 GOVIND PAGE Sep 28, 2016 10:20
--- NOTE | 2016-09-28 10:23 | CONS ---
Date/Time of Note Date/Time of Note DATE: 09/28/16 TIME: 10:21 Assessment/Plan Assessment/Plan Chief Complaint/Hosp Course 50-year-old female resident of a subacute facility was PEG trach admitted with healthcare acquired pneumonia. We have an incomplete database except the patient has multiple comorbid major medical problems including muscular dystrophy morbid obesity type 2 diabetes cardiomyopathy with an EF of 30-35 per. When brought to the emergency room 100% FiO2 for sats were 100 she was diagnosed with bilateral infiltrate and admitted. Patient is a non-historian, reason to be ascertained from patient's old medical records or family members. It is noted in patient's medical records that she has altered mental status etiology unknown. Problems: Additional Assessment/Plan I have had an extensive conversation with the patient's once again. Over the weekend she was transferred to the intensive care unit in respiratory distress. He is at the bedside I reviewed palliative care issues with him before with patient's sister. Once again he does not want to change CODE STATUS but at this case management schedule a meeting once again. Hopefully patient's sisters will attend the meeting again. Consultation Date/Type/Reason Admit Date/Time Sep 15, 2016 at 01:59 Initial Consult Date Postdated note for hospital visit on 09/25/2016 Type of Consultation: Palliative care Exam/Review of Systems Vital Signs Vitals Vital Signs Date Time Temp Pulse Resp B/P Pulse Ox O2 Delivery O2 Flow Rate FiO2 09/28/16 10:15 60 24 90/50 100 09/28/16 10:00 Mechanical Ventilator 09/28/16 05:49 35 09/28/16 04:00 98.7 Intake and Output 09/27/16 09/27/16 09/28/16 14:59 22:59 06:59 Intake Total 490 ml 345 ml 50 ml Output Total 230 ml 295 ml Balance 260 ml 50 ml 50 ml Exam Respiratory: congested cough, crackles/rales, diminished breath sounds Cardiovascular: nl pulses, regular rate and rhythm Neurological: confused, lethargic Results Result Diagram: 09/28/16 0440 09/28/160 Results 24 hrs Laboratory Tests Test 09/27/16 12:09 09/27/16 12:19 09/27/16 17:29 09/27/16 22:07 Bedside Glucose 76 87 98 White Blood Count 8.3 Red Blood Count 2.76 L Hemoglobin 7.7 L Hematocrit 26.4 L Mean Corpuscular Volume 95.7 Mean Corpuscular Hemoglobin 27.9 L Mean Corpuscular Hemoglobin Concent 29.2 L Red Cell Distribution Width 19.3 H Platelet Count 260 Mean Platelet Volume 10.0 Neutrophils % 79.6 H Lymphocytes % 8.8 L Monocytes % 4.9 Eosinophils % 5.4 Basophils % 0.6 Nucleated Red Blood Cells % 0.0 Neutrophils # 6.6 Lymphocytes # 0.7 L Monocytes # 0.4 Eosinophils # 0.5 Basophils # 0.1 Nucleated Red Blood Cells # 0.0 Test 09/28/16 00:28 09/28/16 04:40 09/28/16 05:21 09/28/16 07:00 Bedside Glucose 97 White Blood Count 7.3 Red Blood Count 2.85 L Hemoglobin 8.1 L Hematocrit 27.2 L Mean Corpuscular Volume 95.4 Mean Corpuscular Hemoglobin 28.4 L Mean Corpuscular Hemoglobin Concent 29.8 L Red Cell Distribution Width 18.9 H Platelet Count 239 Mean Platelet Volume 10.6 H Neutrophils % 79.3 H Lymphocytes % 6.2 L Monocytes % 5.2 Eosinophils % 8.0 H Basophils % 0.7 Nucleated Red Blood Cells % 0.0 Neutrophils # 5.8 Lymphocytes # 0.5 L Monocytes # 0.4 Eosinophils # 0.6 H Basophils # 0.1 Nucleated Red Blood Cells # 0.0 Sodium Level 142 Potassium Level 3.1 L Chloride Level 113 H Carbon Dioxide Level 18 L Anion Gap 14 Blood Urea Nitrogen 84 H Creatinine 0.94 Glucose Level 91 Calcium Level 9.0 Phosphorus Level 4.5 Magnesium Level 2.5 Lab Scanned Report BLOOD TRANSFUSION Blood Gas Specimen Source Blood arterial Arterial Blood Date Drawn 09/28/2016 8:00:44 AM Arterial Blood pH (Temp corrected) 7.311 L Arterial Blood pCO2 (Temp correct) 33.1 L Arterial Blood pO2 (Temp corrected) 102.6 H Arterial Blood HCO3 16.3 L Arterial Blood Base Excess -8.9 L Arterial Blood Oxygen Saturation 97.3 Chad Test ACCEPTAB Arterial Blood Gas Puncture Site Right Radial Arterial Blood Carboxyhemoglobin 0.1 Arterial Blood Methemoglobin 0.2 Blood Gas A-a O2 Differential 108.5 H Oxyhemoglobin Percent 97.0 Total Hemoglobin 10.9 L Blood Gas Temperature 37.0 Blood Gas Respiration Rate 24.0 Blood Gas Actual Respiration Rate 24 Blood Gas Modality VENT - AC FiO2 35.0 Blood Gas Tidal Volume 550.0 Blood Gas Notified Whom JLD Blood Gas Notified Time 09/28/2016 8:32:31 AM Test 09/28/16 08:46 Bedside Glucose 89 Medications Medications Current Medications Ondansetron HCl (Zofran Inj) 4 mg Q6H PRN IV NAUSEA AND/OR VOMITING Last administered on 09/24/16 11:53; Admin Dose 4 MG; Start 09/15/16 at 06:30 Acetaminophen (Tylenol Tab) 650 mg Q6H PRN PO PAIN LEVEL 1-3 OR FEVER Last administered on 09/16/16 20:10; Admin Dose 650 MG; Start 09/15/16 at 06:30 Acetaminophen (Tylenol Supp) 650 mg Q6H PRN AL PAIN LEVEL 1-3 OR FEVER; Start 09/15/16 at 06:30 Amiodarone HCl (Cordarone) 200 mg DAILY GTB Last administered on 09/28/16 08: 31; Admin Dose 200 MG; Start 09/15/16 at 09:00 Bisacodyl (Dulcolax Supp) 10 mg Q24H PRN AL CONSTIPATION; Start 09/15/16 at 06: 30 Chlorhexidine Gluconate (Peridex) 15 ml BID MM Last administered on 09/28/16 08:27; Admin Dose 15 ML; Start 09/15/16 at 09:00 Docusate Sodium (Colace) 200 mg QHS PRN PO CONSTIPATION; Start 09/15/16 at 06:30 Lisinopril (Zestril) 2.5 mg BID GTB Last administered on 09/15/16 09:24; Admin Dose 2.5 MG; Start 09/15/16 at 09:00; Status Future Hold Epoetin Kt (Epogen (Non Esrd/Non Oncology)) 3,000 units MoWeFr@17 SC Last administered on 09/25/16 18:41; Admin Dose 3,000 UNITS; Start 09/16/16 at 17:00 Epoetin Kt (Epogen (Non Esrd/Non Oncology)) 2,000 units MoWeFr@17 SC Last administered on 09/25/16 18:41; Admin Dose 2,000 UNITS; Start 09/16/16 at 17:00 Diphenhydramine HCl (Benadryl) 25 mg Q6H PRN IV ITCHING Last administered on 20:41; Admin Dose 25 MG; Start 09/15/16 at 21:00 Tramadol HCl (Ultram) 50 mg Q6H PRN GTB PAIN LEVEL 6-10 Last administered on 09:49; Admin Dose 50 MG; Start 09/17/16 at 12:00 Miscellaneous Information 1 ea NOTE XX ; Start 09/17/16 at 12:00 Insulin Aspart (Novolog Insulin Pen) NOVOLOG *MILD* ALGORI... Q6 SC Last administered on 09/25/16 23:40; Admin Dose 1 UNIT; Start 09/18/16 at 06:00 Miscellaneous Information 1 ea NOTE XX ; Start 09/17/16 at 22:45 Glucose (Glutose) 15 gm Q15M PRN PO DECREASED GLUCOSE; Start 09/17/16 at 22:45 Glucose (Glutose) 22.5 gm Q15M PRN PO DECREASED GLUCOSE; Start 09/17/16 at 22:45 Dextrose (D50w Syringe) 25 ml Q15M PRN IV DECREASED GLUCOSE; Start 09/17/16 at 22:45 Dextrose (D50w Syringe) 50 ml Q15M PRN IV DECREASED GLUCOSE; Start 09/17/16 at 22:45 Glucagon (Glucagen) 1 mg Q15M PRN IM DECREASED GLUCOSE; Start 09/17/16 at 22:45 Glucose (Glutose) 15 gm Q15M PRN BUCCAL DECREASED GLUCOSE; Start 09/17/16 at 22: 45 Acetaminophen (Tylenol Tab) 650 mg Q4 PRN GTB PAIN AND OR ELEVATED TEMP Last administered on 09/23/16 00:59; Admin Dose 650 MG; Start 09/18/16 at 11:30 Albuterol (Proventil 0.083% (Neb)) 2.5 mg Q3H PRN NEB WHEEZING AND SOB; Start 09/18/16 at 11:30 Ascorbic Acid (Vitamin C) 500 mg BID PO Last administered on 09/28/16 08:31; Admin Dose 500 MG; Start 09/18/16 at 21:00 Folic Acid (Folic Acid) 1 mg DAILY GTB Last administered on 09/28/16 09:26; Admin Dose 1 MG; Start 09/19/16 at 09:00 Hydroxyzine HCl (Atarax) 25 mg Q8H PRN PO ITCHING; Start 09/18/16 at 11:30 Lorazepam (Ativan) 1 mg Q8 PRN GTB ANXIETY Last administered on 09/22/16 09:17 ; Admin Dose 1 MG; Start 09/18/16 at 11:30 Magnesium Hydroxide (Milk Of Mag) 30 ml DAILY PRN GTB CONSTIPATION Last administered on 09/23/16 17:19; Admin Dose 30 ML; Start 09/18/16 at 11:30 Sodium Biphosphate/ Sodium Phosphate (Fleet Enema Pediatric) 66.6 ml DAILY PRN AL CONSTIPATION; Start 09/18/16 at 11:30 Lactobacillus Acidophilus/ Rhamnosus (Culturelle) 1 cap BID PO Last administered on 09/28/16 08:30; Admin Dose 1 CAP; Start 09/18/16 at 21:00 Insulin Aspart (Novolog Insulin Pen) 5 unit TID SC Last administered on 20:37; Admin Dose 5 UNIT; Start 09/18/16 at 13:00 Insulin Detemir (Levemir) 18 unit HS SC Last administered on 09/27/16 22:10; Admin Dose 18 UNIT; Start 09/18/16 at 21:00 Morphine Sulfate (morphine) 2 mg Q4H PRN IV PAIN LEVEL 7-10 Last administered on 09/22/16 18:57; Admin Dose 2 MG; Start 09/19/16 at 11:30 Lorazepam (Ativan) 1 mg Q6H PRN IV ANXIETY Last administered on 09/28/16 01:48 ; Admin Dose 1 MG; Start 09/19/16 at 18:30 Midodrine (Proamatine) 5 mg TID GTB Last administered on 09/28/16 08:31; Admin Dose 5 MG; Start 09/21/16 at 06:00 Ferrous Sulfate (Ferrous Sulfate (Ec)) 325 mg TID PO Last administered on 08:31; Admin Dose 325 MG; Start 09/21/16 at 10:00 Multivitamins 30 ml 30 ml DAILY GTB Last administered on 09/28/16 08:30; Admin Dose 30 ML; Start 09/21/16 at 10:30 Vancomycin HCl (Vancocin) 250 ml @ 125 mls/hr Q5D IVPB Last administered on 23:00; Admin Dose 125 MLS/HR; Start 09/21/16 at 22:00 Voriconazole (Vfend) 200 mg BID PO Last administered on 09/28/16 09:26; Admin Dose 200 MG; Start 09/23/16 at 09:30; Stop 09/30/16 at 09:29 Bacitracin (Bacitracin Oint (Ud)) 1 applic BID TOP Last administered on 08:32; Admin Dose 1 APPLIC; Start 09/23/16 at 21:00 Metoclopramide HCl 10 mg 10 mg Q6 IV Last administered on 09/28/16 05:58; Admin Dose 10 MG; Start 09/24/16 at 18:00 Norepinephrine/ Dextrose (Levophed/D5W) 500 ml @ 1.87 mls/hr TITRATE IV Last administered on 09/25/16 20:39; Admin Dose 26.25 MLS/HR; Start 09/25/16 at 07: 00; Status Future hold Lactulose (Enulose) 20 gm BID PO Last administered on 09/28/16 08:26; Admin Dose 20 GM; Start 09/25/16 at 21:00 IV Flush 10 ml 10 ml PRN PRN IV IV PROTOCOL; Start 09/25/16 at 16:00 Meropenem/Sodium Chloride 50 ml @ 200 mls/hr Q12 IVPB Last administered on 08:27; Admin Dose 200 MLS/HR; Start 09/26/16 at 21:00 Ferric Sodium Gluconate Complex/ Sodium Chloride (Ferrlecit/NS) 110 ml @ 110 mls/hr Q24H IVPB Last administered on 09/27/16 10:32; Admin Dose 110 MLS/HR; Start 09/27/16 at 09:00; Stop 10/01/16 at 09:59 Lansoprazole 30 mg 30 mg DAILY@06 GTB Last administered on 09/28/16 06:02; Admin Dose 30 MG; Start 09/28/16 at 06:00 Albumin Human (Albumin Human 25%) 100 ml @ 100 mls/hr Q8H IV Last administered on 09/28/16 08:29; Admin Dose 100 MLS/HR; Start 09/28/16 at 07:30 ; Stop 09/29/16 at 00:29 GOVIND PAGE Sep 28, 2016 10:23
[2016-09-28] MEDS: SOD FERRIC GLUC COMPLX 125 MG in SOD CHLORIDE 0.9% 100 ML IVPB SCH (10:24)
--- NOTE | 2016-09-28 10:46 | CONS ---
Date/Time of Note Date/Time of Note DATE: 09/28/16 TIME: 10:45 Consult Date/Type/Reason Admit Date/Time Sep 15, 2016 at 01:59 Initial Consult Date 09/18/16 Type of Consultation: Pulmonary Subjective Patient remains somnolent on mechanical ventilation currently not on vasopressor support Objective Vital Signs Date Time Temp Pulse Resp B/P Pulse Ox O2 Delivery O2 Flow Rate FiO2 09/28/16 10:15 60 24 90/50 100 09/28/16 10:00 Mechanical Ventilator 09/28/16 05:49 35 09/28/16 04:00 98.7 Intake and Output 09/27/16 09/27/16 09/28/16 15:00 23:00 07:00 Intake Total 520 ml 315 ml 85 ml Output Total 260 ml 265 ml 30 ml Balance 260 ml 50 ml 55 ml Exam PHYSICAL EXAMINATION GENERAL: Elderly lady on mechanical ventilation via tracheostomy VITAL SIGNS: see below. HEENT: Pupils equal, round, and reactive to light. Tracheostomy site clean and intact. CARDIAC: S1, S2, systolic ejection murmur. CHEST: Diminished air entry bilaterally. ABDOMEN: Mildly distended. Diminished bowel sounds. EXTREMITIES: No cyanosis, clubbing edema +1 NEUROLOGIC: Generalized weakness Results/Medications Result Diagram: 09/28/16 0440 09/28/16 0440 Results 24 hrs Laboratory Tests Test 09/27/16 12:09 09/27/16 12:19 09/27/16 17:29 09/27/16 22:07 Bedside Glucose 76 87 98 White Blood Count 8.3 Red Blood Count 2.76 L Hemoglobin 7.7 L Hematocrit 26.4 L Mean Corpuscular Volume 95.7 Mean Corpuscular Hemoglobin 27.9 L Mean Corpuscular Hemoglobin Concent 29.2 L Red Cell Distribution Width 19.3 H Platelet Count 260 Mean Platelet Volume 10.0 Neutrophils % 79.6 H Lymphocytes % 8.8 L Monocytes % 4.9 Eosinophils % 5.4 Basophils % 0.6 Nucleated Red Blood Cells % 0.0 Neutrophils # 6.6 Lymphocytes # 0.7 L Monocytes # 0.4 Eosinophils # 0.5 Basophils # 0.1 Nucleated Red Blood Cells # 0.0 Test 09/28/16 00:28 09/28/16 04:40 09/28/16 05:21 09/28/16 07:00 Bedside Glucose 97 White Blood Count 7.3 Red Blood Count 2.85 L Hemoglobin 8.1 L Hematocrit 27.2 L Mean Corpuscular Volume 95.4 Mean Corpuscular Hemoglobin 28.4 L Mean Corpuscular Hemoglobin Concent 29.8 L Red Cell Distribution Width 18.9 H Platelet Count 239 Mean Platelet Volume 10.6 H Neutrophils % 79.3 H Lymphocytes % 6.2 L Monocytes % 5.2 Eosinophils % 8.0 H Basophils % 0.7 Nucleated Red Blood Cells % 0.0 Neutrophils # 5.8 Lymphocytes # 0.5 L Monocytes # 0.4 Eosinophils # 0.6 H Basophils # 0.1 Nucleated Red Blood Cells # 0.0 Sodium Level 142 Potassium Level 3.1 L Chloride Level 113 H Carbon Dioxide Level 18 L Anion Gap 14 Blood Urea Nitrogen 84 H Creatinine 0.94 Glucose Level 91 Calcium Level 9.0 Phosphorus Level 4.5 Magnesium Level 2.5 Lab Scanned Report BLOOD TRANSFUSION Blood Gas Specimen Source Blood arterial Arterial Blood Date Drawn 09/28/2016 8:00:44 AM Arterial Blood pH (Temp corrected) 7.311 L Arterial Blood pCO2 (Temp correct) 33.1 L Arterial Blood pO2 (Temp corrected) 102.6 H Arterial Blood HCO3 16.3 L Arterial Blood Base Excess -8.9 L Arterial Blood Oxygen Saturation 97.3 Chad Test ACCEPTAB Arterial Blood Gas Puncture Site Right Radial Arterial Blood Carboxyhemoglobin 0.1 Arterial Blood Methemoglobin 0.2 Blood Gas A-a O2 Differential 108.5 H Oxyhemoglobin Percent 97.0 Total Hemoglobin 10.9 L Blood Gas Temperature 37.0 Blood Gas Respiration Rate 24.0 Blood Gas Actual Respiration Rate 24 Blood Gas Modality VENT - AC FiO2 35.0 Blood Gas Tidal Volume 550.0 Blood Gas Notified Whom JLD Blood Gas Notified Time 09/28/2016 8:32:31 AM Test 09/28/16 08:46 Bedside Glucose 89 Medications Current Medications Ondansetron HCl (Zofran Inj) 4 mg Q6H PRN IV NAUSEA AND/OR VOMITING Last administered on 09/24/16 11:53; Admin Dose 4 MG; Start 09/15/16 at 06:30 Acetaminophen (Tylenol Tab) 650 mg Q6H PRN PO PAIN LEVEL 1-3 OR FEVER Last administered on 09/16/16 20:10; Admin Dose 650 MG; Start 09/15/16 at 06:30 Acetaminophen (Tylenol Supp) 650 mg Q6H PRN LA PAIN LEVEL 1-3 OR FEVER; Start 09/15/16 at 06:30 Amiodarone HCl (Cordarone) 200 mg DAILY GTB Last administered on 09/28/16 08: 31; Admin Dose 200 MG; Start 09/15/16 at 09:00 Bisacodyl (Dulcolax Supp) 10 mg Q24H PRN LA CONSTIPATION; Start 09/15/16 at 06: 30 Chlorhexidine Gluconate (Peridex) 15 ml BID MM Last administered on 09/28/16 08:27; Admin Dose 15 ML; Start 09/15/16 at 09:00 Docusate Sodium (Colace) 200 mg QHS PRN PO CONSTIPATION; Start 09/15/16 at 06:30 Lisinopril (Zestril) 2.5 mg BID GTB Last administered on 09/15/16 09:24; Admin Dose 2.5 MG; Start 09/15/16 at 09:00; Status Future Hold Epoetin Kt (Epogen (Non Esrd/Non Oncology)) 3,000 units MoWeFr@17 SC Last administered on 09/25/16 18:41; Admin Dose 3,000 UNITS; Start 09/16/16 at 17:00 Epoetin Kt (Epogen (Non Esrd/Non Oncology)) 2,000 units MoWeFr@17 SC Last administered on 09/25/16 18:41; Admin Dose 2,000 UNITS; Start 09/16/16 at 17:00 Diphenhydramine HCl (Benadryl) 25 mg Q6H PRN IV ITCHING Last administered on 20:41; Admin Dose 25 MG; Start 09/15/16 at 21:00 Tramadol HCl (Ultram) 50 mg Q6H PRN GTB PAIN LEVEL 6-10 Last administered on 09:49; Admin Dose 50 MG; Start 09/17/16 at 12:00 Miscellaneous Information 1 ea NOTE XX ; Start 09/17/16 at 12:00 Insulin Aspart (Novolog Insulin Pen) NOVOLOG *MILD* ALGORI... Q6 SC Last administered on 09/25/16 23:40; Admin Dose 1 UNIT; Start 09/18/16 at 06:00 Miscellaneous Information 1 ea NOTE XX ; Start 09/17/16 at 22:45 Glucose (Glutose) 15 gm Q15M PRN PO DECREASED GLUCOSE; Start 09/17/16 at 22:45 Glucose (Glutose) 22.5 gm Q15M PRN PO DECREASED GLUCOSE; Start 09/17/16 at 22:45 Dextrose (D50w Syringe) 25 ml Q15M PRN IV DECREASED GLUCOSE; Start 09/17/16 at 22:45 Dextrose (D50w Syringe) 50 ml Q15M PRN IV DECREASED GLUCOSE; Start 09/17/16 at 22:45 Glucagon (Glucagen) 1 mg Q15M PRN IM DECREASED GLUCOSE; Start 09/17/16 at 22:45 Glucose (Glutose) 15 gm Q15M PRN BUCCAL DECREASED GLUCOSE; Start 09/17/16 at 22: 45 Acetaminophen (Tylenol Tab) 650 mg Q4 PRN GTB PAIN AND OR ELEVATED TEMP Last administered on 09/23/16 00:59; Admin Dose 650 MG; Start 09/18/16 at 11:30 Albuterol (Proventil 0.083% (Neb)) 2.5 mg Q3H PRN NEB WHEEZING AND SOB; Start 09/18/16 at 11:30 Ascorbic Acid (Vitamin C) 500 mg BID PO Last administered on 09/28/16 08:31; Admin Dose 500 MG; Start 09/18/16 at 21:00 Folic Acid (Folic Acid) 1 mg DAILY GTB Last administered on 09/28/16 09:26; Admin Dose 1 MG; Start 09/19/16 at 09:00 Hydroxyzine HCl (Atarax) 25 mg Q8H PRN PO ITCHING; Start 09/18/16 at 11:30 Lorazepam (Ativan) 1 mg Q8 PRN GTB ANXIETY Last administered on 09/22/16 09:17 ; Admin Dose 1 MG; Start 09/18/16 at 11:30 Magnesium Hydroxide (Milk Of Mag) 30 ml DAILY PRN GTB CONSTIPATION Last administered on 09/23/16 17:19; Admin Dose 30 ML; Start 09/18/16 at 11:30 Sodium Biphosphate/ Sodium Phosphate (Fleet Enema Pediatric) 66.6 ml DAILY PRN LA CONSTIPATION; Start 09/18/16 at 11:30 Lactobacillus Acidophilus/ Rhamnosus (Culturelle) 1 cap BID PO Last administered on 09/28/16 08:30; Admin Dose 1 CAP; Start 09/18/16 at 21:00 Insulin Aspart (Novolog Insulin Pen) 5 unit TID SC Last administered on 20:37; Admin Dose 5 UNIT; Start 09/18/16 at 13:00 Insulin Detemir (Levemir) 18 unit HS SC Last administered on 09/27/16 22:10; Admin Dose 18 UNIT; Start 09/18/16 at 21:00 Morphine Sulfate (morphine) 2 mg Q4H PRN IV PAIN LEVEL 7-10 Last administered on 09/22/16 18:57; Admin Dose 2 MG; Start 09/19/16 at 11:30 Lorazepam (Ativan) 1 mg Q6H PRN IV ANXIETY Last administered on 09/28/16 01:48 ; Admin Dose 1 MG; Start 09/19/16 at 18:30 Midodrine (Proamatine) 5 mg TID GTB Last administered on 09/28/16 08:31; Admin Dose 5 MG; Start 09/21/16 at 06:00 Ferrous Sulfate (Ferrous Sulfate (Ec)) 325 mg TID PO Last administered on 08:31; Admin Dose 325 MG; Start 09/21/16 at 10:00 Multivitamins 30 ml 30 ml DAILY GTB Last administered on 09/28/16 08:30; Admin Dose 30 ML; Start 09/21/16 at 10:30 Vancomycin HCl (Vancocin) 250 ml @ 125 mls/hr Q5D IVPB Last administered on 23:00; Admin Dose 125 MLS/HR; Start 09/21/16 at 22:00 Voriconazole (Vfend) 200 mg BID PO Last administered on 09/28/16 09:26; Admin Dose 200 MG; Start 09/23/16 at 09:30; Stop 09/30/16 at 09:29 Bacitracin (Bacitracin Oint (Ud)) 1 applic BID TOP Last administered on 08:32; Admin Dose 1 APPLIC; Start 09/23/16 at 21:00 Metoclopramide HCl 10 mg 10 mg Q6 IV Last administered on 09/28/16 05:58; Admin Dose 10 MG; Start 09/24/16 at 18:00 Norepinephrine/ Dextrose (Levophed/D5W) 500 ml @ 1.87 mls/hr TITRATE IV Last administered on 09/25/16 20:39; Admin Dose 26.25 MLS/HR; Start 09/25/16 at 07: 00; Status Future hold Lactulose (Enulose) 20 gm BID PO Last administered on 09/28/16 08:26; Admin Dose 20 GM; Start 09/25/16 at 21:00 IV Flush 10 ml 10 ml PRN PRN IV IV PROTOCOL; Start 09/25/16 at 16:00 Meropenem/Sodium Chloride 50 ml @ 200 mls/hr Q12 IVPB Last administered on 08:27; Admin Dose 200 MLS/HR; Start 09/26/16 at 21:00 Ferric Sodium Gluconate Complex/ Sodium Chloride (Ferrlecit/NS) 110 ml @ 110 mls/hr Q24H IVPB Last administered on 09/28/16 10:24; Admin Dose 110 MLS/HR; Start 09/27/16 at 09:00; Stop 10/01/16 at 09:59 Lansoprazole 30 mg 30 mg DAILY@06 GTB Last administered on 09/28/16 06:02; Admin Dose 30 MG; Start 09/28/16 at 06:00 Albumin Human (Albumin Human 25%) 100 ml @ 100 mls/hr Q8H IV Last administered on 09/28/16 08:29; Admin Dose 100 MLS/HR; Start 09/28/16 at 07:30 ; Stop 09/29/16 at 00:29 Assessment/Plan Chief Complaint/Hosp Course Additional Assessment/Plan IMP: 1. VDRF 2. HCAP 3. CHF decreased ejection fraction but evidence of pulmonary hypertension. 4. CMY 5. Encephalopathy secondary to sepsis. 6. Status post septic shock likely polymicrobial sepsis 7. Mixed acidosis. 8. Anemia multifactorial 9. Significant ascites questionable SBP RECS: 1. Vent support continue current settings 2. BDs/CPT 3. Abx per ID 4. Volume resuscitation. Intravenous bicarbonate. 5. Vasopressors keep MAP > 65. 6. Panculture 7. Paracentesis and consider administration of albumin during this procedure Disposition Continue ICU care prognosis guarded. Critical care time 40 minutes. Problems: YUNIEL JACK MD, [facility] Sep 28, 2016 10:46
--- NOTE | 2016-09-28 11:14 | PN ---
Date/Time of Note Date/Time of Note DATE: 09/28/16 TIME: 11:12 Assessment/Plan VTE Prophylaxis VTE Prophylaxis Intervention: SCD's Lines/Catheters IV Catheter Type (from Nrsg): PICC Line Central line still needed: Yes Urinary Cath still in place: Yes Reason Cath still needed: terminal illness/intractable pain Assessment/Plan Chief Complaint/Hosp Course Assessment/Plan 1. Septic shock due to health care associated PNA- on levophed, titrate to off to keep >95 mm Hg, systolic 2. Acute on chronic Congestive heart failure. 3. Healthcare associated pneumonia. 4. Chronic Trach/vent dependent respiratory failure 5. Cardiomyopathy with EF of 30% to 35%, Bi-VAICD 6. ABIB/AFlutter-Currently paced-Not on anticoag 7. Delia Glabrata UTI with <10,000 cc. -Voriconazole Gtube x 7days 8. Chronic anoxic encephalopathy. 9. Dysphagia dislodged/nonfunctional G-tube. Status post gtube replacement 09/22 10. Ascites. Stable -Status post paracentesis with 3650. 11. Diabetes - A1c = 5.2. 12. Acute kidney injury on chronic kidney disease. resolved 13. History of Hypertension, now with hypertension.-Antihypertensives on hold- Defer cards for further management. 14. History of quadriplegia secondary to muscular dystrophy 15. Anemia: Hemoglobin presently stable- on Epogen 16. Pulmonary hypertension. 17. Leukocytosis,possibly 2/2 #3 &#6 18.Diarrhea-Lactulose induced? vs others DVT prophylaxis: SCDs PUD prophylaxis: Protonix Plan: IV abx as per ID- meropenem Titrate levophed to off, currently off. Pulmonnary has been following, K replacement as needed. Pt is not doing well overall, palliative to discuss goals of care appreciate other subsepciality help pt is on Midodrine for BP support paracentesis pending, patient needs it routine for possible CHF related. Change protonix to IV since it can not be crushed Hb 7.2- on epogen, monitor it and Prn transfusion Problems: Subjective 24 Hr Interval Summary Free Text/Dictation patient still non-verbal and does not follow commands Exam/Review of Systems Vital Signs Vitals Vital Signs Date Time Temp Pulse Resp B/P Pulse Ox O2 Delivery O2 Flow Rate FiO2 09/28/16 10:15 60 24 90/50 100 8/14/17 10:00 Mechanical Ventilator 09/28/16 05:49 35 09/28/16 04:00 98.7 Intake and Output 09/27/16 09/27/16 09/28/16 15:00 23:00 07:00 Intake Total 520 ml 315 ml 85 ml Output Total 260 ml 265 ml 30 ml Balance 260 ml 50 ml 55 ml Exam Constitutional: non-verbal, opens eyes. ENMT: other (+ tracheostomy ), atruamtic Neck: supplem midline Respiratory: other (Bilateral coarse BS +) Cardiovascular: irregular rhythm, nl pulses Gastrointestinal: ascites, soft, non tender Results Result Diagram: 09/28/16 0440 09/28/16 0440 Results 24 hrs Laboratory Tests Test 09/27/16 12:09 09/27/16 12:19 09/27/16 17:29 09/27/16 22:07 Bedside Glucose 76 87 98 White Blood Count 8.3 Red Blood Count 2.76 L Hemoglobin 7.7 L Hematocrit 26.4 L Mean Corpuscular Volume 95.7 Mean Corpuscular Hemoglobin 27.9 L Mean Corpuscular Hemoglobin Concent 29.2 L Red Cell Distribution Width 19.3 H Platelet Count 260 Mean Platelet Volume 10.0 Neutrophils % 79.6 H Lymphocytes % 8.8 L Monocytes % 4.9 Eosinophils % 5.4 Basophils % 0.6 Nucleated Red Blood Cells % 0.0 Neutrophils # 6.6 Lymphocytes # 0.7 L Monocytes # 0.4 Eosinophils # 0.5 Basophils # 0.1 Nucleated Red Blood Cells # 0.0 Test 09/28/16 00:28 09/28/16 04:40 09/28/16 05:21 09/28/16 07:00 Bedside Glucose 97 White Blood Count 7.3 Red Blood Count 2.85 L Hemoglobin 8.1 L Hematocrit 27.2 L Mean Corpuscular Volume 95.4 Mean Corpuscular Hemoglobin 28.4 L Mean Corpuscular Hemoglobin Concent 29.8 L Red Cell Distribution Width 18.9 H Platelet Count 239 Mean Platelet Volume 10.6 H Neutrophils % 79.3 H Lymphocytes % 6.2 L Monocytes % 5.2 Eosinophils % 8.0 H Basophils % 0.7 Nucleated Red Blood Cells % 0.0 Neutrophils # 5.8 Lymphocytes # 0.5 L Monocytes # 0.4 Eosinophils # 0.6 H Basophils # 0.1 Nucleated Red Blood Cells # 0.0 Sodium Level 142 Potassium Level 3.1 L Chloride Level 113 H Carbon Dioxide Level 18 L Anion Gap 14 Blood Urea Nitrogen 84 H Creatinine 0.94 Glucose Level 91 Calcium Level 9.0 Phosphorus Level 4.5 Magnesium Level 2.5 Lab Scanned Report BLOOD TRANSFUSION Blood Gas Specimen Source Blood arterial Arterial Blood Date Drawn 09/28/2016 8:00:44 AM Arterial Blood pH (Temp corrected) 7.311 L Arterial Blood pCO2 (Temp correct) 33.1 L Arterial Blood pO2 (Temp corrected) 102.6 H Arterial Blood HCO3 16.3 L Arterial Blood Base Excess -8.9 L Arterial Blood Oxygen Saturation 97.3 Chad Test ACCEPTAB Arterial Blood Gas Puncture Site Right Radial Arterial Blood Carboxyhemoglobin 0.1 Arterial Blood Methemoglobin 0.2 Blood Gas A-a O2 Differential 108.5 H Oxyhemoglobin Percent 97.0 Total Hemoglobin 10.9 L Blood Gas Temperature 37.0 Blood Gas Respiration Rate 24.0 Blood Gas Actual Respiration Rate 24 Blood Gas Modality VENT - AC FiO2 35.0 Blood Gas Tidal Volume 550.0 Blood Gas Notified Whom JLD Blood Gas Notified Time 09/28/2016 8:32:31 AM Test 09/28/16 08:46 Bedside Glucose 89 Medications Medications Current Medications Ondansetron HCl (Zofran Inj) 4 mg Q6H PRN IV NAUSEA AND/OR VOMITING Last administered on 09/24/16 11:53; Admin Dose 4 MG; Start 09/15/16 at 06:30 Acetaminophen (Tylenol Tab) 650 mg Q6H PRN PO PAIN LEVEL 1-3 OR FEVER Last administered on 09/16/16 20:10; Admin Dose 650 MG; Start 09/15/16 at 06:30 Acetaminophen (Tylenol Supp) 650 mg Q6H PRN DE PAIN LEVEL 1-3 OR FEVER; Start 09/15/16 at 06:30 Amiodarone HCl (Cordarone) 200 mg DAILY GTB Last administered on 09/28/16 08: 31; Admin Dose 200 MG; Start 09/15/16 at 09:00 Bisacodyl (Dulcolax Supp) 10 mg Q24H PRN DE CONSTIPATION; Start 09/15/16 at 06: 30 Chlorhexidine Gluconate (Peridex) 15 ml BID MM Last administered on 09/28/16 08:27; Admin Dose 15 ML; Start 09/15/16 at 09:00 Docusate Sodium (Colace) 200 mg QHS PRN PO CONSTIPATION; Start 09/15/16 at 06:30 Lisinopril (Zestril) 2.5 mg BID GTB Last administered on 09/15/16 09:24; Admin Dose 2.5 MG; Start 09/15/16 at 09:00; Status Future Hold Epoetin Kt (Epogen (Non Esrd/Non Oncology)) 3,000 units MoWeFr@17 SC Last administered on 09/25/16 18:41; Admin Dose 3,000 UNITS; Start 09/16/16 at 17:00 Epoetin Kt (Epogen (Non Esrd/Non Oncology)) 2,000 units MoWeFr@17 SC Last administered on 09/25/16 18:41; Admin Dose 2,000 UNITS; Start 09/16/16 at 17:00 Diphenhydramine HCl (Benadryl) 25 mg Q6H PRN IV ITCHING Last administered on 20:41; Admin Dose 25 MG; Start 09/15/16 at 21:00 Tramadol HCl (Ultram) 50 mg Q6H PRN GTB PAIN LEVEL 6-10 Last administered on 09:49; Admin Dose 50 MG; Start 09/17/16 at 12:00 Miscellaneous Information 1 ea NOTE XX ; Start 09/17/16 at 12:00 Insulin Aspart (Novolog Insulin Pen) NOVOLOG *MILD* ALGORI... Q6 SC Last administered on 09/25/16 23:40; Admin Dose 1 UNIT; Start 09/18/16 at 06:00 Miscellaneous Information 1 ea NOTE XX ; Start 09/17/16 at 22:45 Glucose (Glutose) 15 gm Q15M PRN PO DECREASED GLUCOSE; Start 09/17/16 at 22:45 Glucose (Glutose) 22.5 gm Q15M PRN PO DECREASED GLUCOSE; Start 09/17/16 at 22:45 Dextrose (D50w Syringe) 25 ml Q15M PRN IV DECREASED GLUCOSE; Start 09/17/16 at 22:45 Dextrose (D50w Syringe) 50 ml Q15M PRN IV DECREASED GLUCOSE; Start 09/17/16 at 22:45 Glucagon (Glucagen) 1 mg Q15M PRN IM DECREASED GLUCOSE; Start 09/17/16 at 22:45 Glucose (Glutose) 15 gm Q15M PRN BUCCAL DECREASED GLUCOSE; Start 09/17/16 at 22: 45 Acetaminophen (Tylenol Tab) 650 mg Q4 PRN GTB PAIN AND OR ELEVATED TEMP Last administered on 09/23/16 00:59; Admin Dose 650 MG; Start 09/18/16 at 11:30 Albuterol (Proventil 0.083% (Neb)) 2.5 mg Q3H PRN NEB WHEEZING AND SOB; Start 09/18/16 at 11:30 Ascorbic Acid (Vitamin C) 500 mg BID PO Last administered on 09/28/16 08:31; Admin Dose 500 MG; Start 09/18/16 at 21:00 Folic Acid (Folic Acid) 1 mg DAILY GTB Last administered on 09/28/16 09:26; Admin Dose 1 MG; Start 09/19/16 at 09:00 Hydroxyzine HCl (Atarax) 25 mg Q8H PRN PO ITCHING; Start 09/18/16 at 11:30 Lorazepam (Ativan) 1 mg Q8 PRN GTB ANXIETY Last administered on 09/22/16 09:17 ; Admin Dose 1 MG; Start 09/18/16 at 11:30 Magnesium Hydroxide (Milk Of Mag) 30 ml DAILY PRN GTB CONSTIPATION Last administered on 09/23/16 17:19; Admin Dose 30 ML; Start 09/18/16 at 11:30 Sodium Biphosphate/ Sodium Phosphate (Fleet Enema Pediatric) 66.6 ml DAILY PRN DE CONSTIPATION; Start 09/18/16 at 11:30 Lactobacillus Acidophilus/ Rhamnosus (Culturelle) 1 cap BID PO Last administered on 09/28/16 08:30; Admin Dose 1 CAP; Start 09/18/16 at 21:00 Insulin Aspart (Novolog Insulin Pen) 5 unit TID SC Last administered on 20:37; Admin Dose 5 UNIT; Start 09/18/16 at 13:00 Insulin Detemir (Levemir) 18 unit HS SC Last administered on 09/27/16 22:10; Admin Dose 18 UNIT; Start 09/18/16 at 21:00 Morphine Sulfate (morphine) 2 mg Q4H PRN IV PAIN LEVEL 7-10 Last administered on 09/22/16 18:57; Admin Dose 2 MG; Start 09/19/16 at 11:30 Lorazepam (Ativan) 1 mg Q6H PRN IV ANXIETY Last administered on 09/28/16 01:48 ; Admin Dose 1 MG; Start 09/19/16 at 18:30 Midodrine (Proamatine) 5 mg TID GTB Last administered on 09/28/16 08:31; Admin Dose 5 MG; Start 09/21/16 at 06:00 Ferrous Sulfate (Ferrous Sulfate (Ec)) 325 mg TID PO Last administered on 08:31; Admin Dose 325 MG; Start 09/21/16 at 10:00 Multivitamins 30 ml 30 ml DAILY GTB Last administered on 09/28/16 08:30; Admin Dose 30 ML; Start 09/21/16 at 10:30 Vancomycin HCl (Vancocin) 250 ml @ 125 mls/hr Q5D IVPB Last administered on 23:00; Admin Dose 125 MLS/HR; Start 09/21/16 at 22:00 Voriconazole (Vfend) 200 mg BID PO Last administered on 09/28/16 09:26; Admin Dose 200 MG; Start 09/23/16 at 09:30; Stop 09/30/16 at 09:29 Bacitracin (Bacitracin Oint (Ud)) 1 applic BID TOP Last administered on 08:32; Admin Dose 1 APPLIC; Start 09/23/16 at 21:00 Metoclopramide HCl 10 mg 10 mg Q6 IV Last administered on 09/28/16 05:58; Admin Dose 10 MG; Start 09/24/16 at 18:00 Norepinephrine/ Dextrose (Levophed/D5W) 500 ml @ 1.87 mls/hr TITRATE IV Last administered on 09/25/16 20:39; Admin Dose 26.25 MLS/HR; Start 09/25/16 at 07: 00; Status Future hold Lactulose (Enulose) 20 gm BID PO Last administered on 09/28/16 08:26; Admin Dose 20 GM; Start 09/25/16 at 21:00 IV Flush 10 ml 10 ml PRN PRN IV IV PROTOCOL; Start 09/25/16 at 16:00 Meropenem/Sodium Chloride 50 ml @ 200 mls/hr Q12 IVPB Last administered on 08:27; Admin Dose 200 MLS/HR; Start 09/26/16 at 21:00 Ferric Sodium Gluconate Complex/ Sodium Chloride (Ferrlecit/NS) 110 ml @ 110 mls/hr Q24H IVPB Last administered on 09/28/16 10:24; Admin Dose 110 MLS/HR; Start 09/27/16 at 09:00; Stop 10/01/16 at 09:59 Lansoprazole 30 mg 30 mg DAILY@06 GTB Last administered on 09/28/16 06:02; Admin Dose 30 MG; Start 09/28/16 at 06:00 Albumin Human (Albumin Human 25%) 100 ml @ 100 mls/hr Q8H IV Last administered on 09/28/16 08:29; Admin Dose 100 MLS/HR; Start 09/28/16 at 07:30 ; Stop 09/29/16 at 00:29 JAIR GRANGER Sep 28, 2016 11:14
[2016-09-28 13:23] LABS: ADD UMIC YES; UR ASCORBIC ACID 40 mg/dL (NEGATIVE); UR BACTERIA FEW /HPF (NONE SEEN); UR BILIRUBIN (Dip) NEGATIVE (NEGATIVE); UR BLOOD (Dip) 1+ mg/dL (NEGATIVE); UR CLARITY CLOUDY (CLEAR); UR COLOR YELLOW (YELLOW); UR GLUCOSE (Dip) NEGATIVE (NEGATIVE); UR KETONES (Dip) NEGATIVE (NEGATIVE); UR LEUKOCYTE ESTERASE (Dip) 3+ Leu/ul (NEGATIVE); UR NITRITE (Dip) NEGATIVE (NEGATIVE); UR NONSQUAMOUS EPITHELIAL CELL 3 /HPF (NONE SEEN); UR RBC 14 /HPF (0-5); UR SPECIFIC GRAVITY (Dip) 1.014 (1.003-1.030); UR SQUAMOUS EPITHELIAL CELL FEW /HPF (FEW); UR TOTAL PROTEIN (Dip) 2+ mg/dl (NEGATIVE); UR UROBILINOGEN (Dip) NEGATIVE (NEGATIVE); UR WBC CLUMPS MANY /HPF (NONE SEEN)
[2016-09-28 15:12] LABS: INR 1.94; PROTIME 22.3 Sec (12.2-14.2); PT RATIO 1.7
[2016-09-28 15:13] LABS: PARTIAL THROMBOPLASTIN TIME 45.1 Sec (25.0-35.0)
--- NOTE | 2016-09-28 17:51 | RADRPT ---
PROCEDURE: Ultrasound guided paracentesis CLINICAL INDICATION: Ascites TECHNIQUE: The risks benefits and alternatives of the procedure were explained to the patient. In formed written consent was obtained. A time out was performed. The patient understood the risks be nefits and alternatives and wished to proceed with the procedure. COMPARISON: 09/20/2016. FINDINGS: A time out was performed. The overlying skin of the right lower quadrant of the abdomen was prepped and draped in the usual sterile fashion. Approximately 10 cc of Xylocaine was injected locally for pain control. Utilizing ultrasound guidance, a skinny 5-[place] Yueh catheter was placed into the p eritoneal cavity without difficulty. The patient tolerated the procedure well without complication. Approximately 8300 cc of yellow fluid was obtained. The fluid was not sent to the lab for further analysis. IMPRESSION: 1. Successful ultrasound-guided paracentesis. RPTAT: QQ .Sharif Iqbal MD, Date Time Electronically viewed and signed by .Sharif Iqbal MD, on 09/28/2016 17:51 .N/
[2016-09-28] MEDS ORDERED: LIDOCAINE 1% (MPF) 5 ML VIAL ONE (17:55)
[2016-09-28] MEDS: EPOETIN 2000 UNITS/ML INJ (NON ESRD/NON ONCOLOGY) SC SCH (17:59)
[2016-09-28] MEDS: EPOETIN 3000 UNITS/ML (NON ESRD/NON ONCOLOGY) SC SCH (18:00)
[2016-09-28] MEDS: INSULIN DETEMIR [LEVEMIR] 3ML CART SC SCH (20:06)
[2016-09-29] VITALS (86 sets, daily range): BP systolic 39–130; BP diastolic 15–96; PULSE 59–91; RESP 11–27
[2016-09-29] MEDS: ALBUTEROL 18 GM INHALER INH SCH ×6 (00:40→21:46)
[2016-09-29 05:01] LABS: WHITE BLOOD COUNT 9.8 10^3/ul (4.8-10.8)
[2016-09-29 05:02] LABS: BASOPHIL # 0.1 10^3/ul (0.0-0.1); BASOPHILS % 0.7 % (0.0-2.0); EOSINOPHILS # 0.9 10^3/ul (0.0-0.5); EOSINOPHILS % 9.2 % (0.0-7.0); HEMATOCRIT 32.1 % (37.0-47.0); HEMOGLOBIN 9.6 g/dl (12.0-16.0); LYMPHOCYTES # 0.7 10^3/ul (0.8-2.9); LYMPHOCYTES % 7.1 % (15.0-51.0); MEAN CORPUSCULAR HEMOGLOBIN 28.4 pg (29.0-33.0); MEAN CORPUSCULAR HGB CONC 29.9 g/dl (32.0-37.0); MEAN PLATELET VOLUME 11.7 fl (7.4-10.4); MONOCYTE # 0.7 10^3/ul (0.3-0.9); NEUTROPHILS % 75.2 % (39.0-77.0); PLATELET COUNT 155 10^3/UL (140-415); RED BLOOD COUNT 3.38 10^6/ul (4.20-5.40); RED CELL DISTRIBUTION WIDTH 19.1 % (11.5-14.5)
[2016-09-29] MEDS: METOCLOPRAMIDE 10 MG INJ IV SCH ×4 (05:21→23:58)
[2016-09-29] MEDS: LANSOPRAZOLE 30 MG CAP GTB SCH (05:23)
[2016-09-29] MEDS: INSULIN ASPART [NOVOLOG] 3 ML PEN SC SCH ×7 (05:25→21:10)
[2016-09-29 05:27] LABS: CALCIUM 8.8 mg/dl (8.4-10.2); CREATININE 0.9 mg/dl (0.44-1.00); MAGNESIUM 2.4 mg/dl (1.7-2.5); PHOSPHORUS 4.1 mg/dl (2.5-4.9); POTASSIUM 3.2 mmol/L (3.5-5.1)
--- NOTE | 2016-09-29 08:58 | PN ---
DATE: 09/28/2016 SUBJECTIVE: Patient is more lethargic today, started on Levophed drip this morning. She is in no distress. OBJECTIVE DATA: VITAL SIGNS: Temperature 98.7, pulse 62, respirations 18, blood pressure 95/57, and saturation 100 on vent. LABORATORY AND DIAGNOSTIC DATA: WBC 7.3, H and H 8.1 and 27.2, and platelets 239. Neutrophils 79.3, no bands. BUN 84 and creatinine 0.94. MICROBIOLOGY: Blood culture since September 26 remain negative. Sputum and urine culture pending. INDWELLINGS: Trach, PEG, Matthew, rectal tube, and PICC line. RADIOLOGY: Chest x-ray this morning revealed cardiomegaly and increased pulmonary edema. ANTIMICROBIALS: Meropenem, voriconazole, and vancomycin. PHYSICAL EXAMINATION: GENERAL: Well-developed, chronically ill-appearing, obese middle- aged woman, who is more lethargic today. The patient is in no distress. HEENT: Head atraumatic, normocephalic. Sclerae anicteric. Buccal mucosa dry. NECK: Neck is supple, tracheostomy present. CHEST: Chest rise symmetrical. Breath sounds with bilateral crackles. HEART: S1, S2. ABDOMEN: Obese, positive fascitis. Bowel tones hypoactive. EXTREMITIES: Extremities with bilateral edema. ASSESSMENT: 1. Septic shock. 2. Healthcare associated pneumonia. 3. Delia glabrata urinary tract infection (UTI). 4. Recurrent ascites, status post multiple paracentesis, no evidence of spontaneous bacterial peritonitis (SBP). 5. Chronic respiratory failure, ventilatory dependent. 6. Cardiomyopathy with decompensated congestive heart failure (CHF). 7. Severe debilitated state secondary to muscle dystrophy. PLAN: The patient deteriorated overnight. She is on appropriate antimicrobials. She has diarrhea, however, she is on lactulose and stool for C diff on September 25 was negative. She is scheduled for paracentesis today. We will await for repeat urine culture, follow recommendations of consultants. Dictated By: Anita Ingram NP /reynaldo/cabrera /Document#: [id number] [email or web address]
[2016-09-29] MEDS: LACTOBACILLUS RHAMNOSUS CAP PO SCH ×2 (09:16→21:07)
[2016-09-29] MEDS: ASCORBIC ACID 500 MG TAB PO SCH ×2 (09:16→21:07)
[2016-09-29] MEDS: FERROUS SULFATE (EC) 325 MG TAB PO SCH ×3 (09:16→21:07)
[2016-09-29] MEDS: FOLIC ACID 1 MG TAB GTB SCH (09:16)
[2016-09-29] MEDS: traMADol 50 MG TAB GTB PRN (09:16)
[2016-09-29] MEDS: MIDODRINE 5 MG TAB GTB SCH ×3 (09:16→21:07)
[2016-09-29] MEDS: VORICONAZOLE 200 MG TAB PO SCH ×2 (09:17→21:07)
[2016-09-29] MEDS: CHLORHEXIDINE GLUCONATE 15 ML UD CUP MM SCH ×2 (09:17→21:07)
[2016-09-29] MEDS: LACTULOSE 30ML CUP PO SCH ×2 (09:17→21:07)
[2016-09-29] MEDS: BACITRACIN 0.9 GM OINT TOP SCH ×2 (09:17→21:09)
[2016-09-29] MEDS: MULTIVITAMINS 30 ML CUP GTB SCH (09:17)
[2016-09-29] MEDS: AMIODARONE 200 MG TAB GTB SCH (09:17)
[2016-09-29] MEDS: MEROPENEM 500MG/50 ML (PMX) 50 ML IVPB SCH ×2 (09:28→21:07)
[2016-09-29] MEDS ORDERED: BUMETANIDE 1 MG INJ IV ONE (09:30)
--- NOTE | 2016-09-29 09:34 | PN ---
Date/Time of Note Date/Time of Note DATE: 09/29/16 TIME: 09:27 Assessment/Plan VTE Prophylaxis VTE Prophylaxis Intervention: other Lines/Catheters IV Catheter Type (from Nrs): PICC Line Central line still needed: Yes Urinary Cath still in place: Yes Reason Cath still needed: urinary retention Assessment/Plan Assessment/Plan 1. Oliguric acute kidney injury on top of chronic kidney disease stage IIIB/IV. Etiology of acute kidney injury secondary to sepsis and acute tubular necrosis. She is volume overloaded and has pulm edema. will diurese with close monitoring of her electrolytes 2. Chronic kidney disease, etiology multifactorial. 3. Sepsis, status post shock. The patient is currently off pressor support. Continue antibiotic therapy. Continue gentle volume expansion. Follow up cultures. 4. Mineral bone disorder. Continue to monitor calcium and phosphorus levels. 5. Metabolic acidosis secondary to acute kidney injury. The patient's last ABG was reviewed. Will continue to monitor. Will defer bicarbonate therapy. 6. Hypokalemia. Replete with potassium chloride. 7. Anemia. Monitor H and H levels. 8. Ventilatory-dependent respiratory failure. Vent settings reviewed. ABGs reviewed. Continue to monitor. 9. History of cardiomyopathy. Continue current treatment plan. 10. Dysphagia, status post percutaneous endoscopic gastrostomy. 11. Muscular dystrophy. 12. Acute on chronic congestive heart failure exacerbation. Continue current medical management. Subjective 24 Hr Interval Summary Free Text/Dictation renal follow up SUBJECTIVE DATA: Patient remains critical, but stable. No other events noted. No hemoptysis, hematemesis, hematochezia. s/p paracentesis (8600 removed) OBJECTIVE DATA: HEENT: Head is normocephalic. NECK: Supple. HEART: Regular rate. LUNGS: Diminished breath sounds at the base. ABDOMEN: Soft, nontender to palpation. No rebound or guarding. EXTREMITIES: Negative for clubbing, cyanosis. Positive edema. DERMATOLOGIC: No rashes. MUSCULOSKELETAL: No joint effusion. NEUROLOGIC: No change in exam. MEDICATIONS: Reviewed. Exam/Review of Systems Vital Signs Vitals Vital Signs Date Time Temp Pulse Resp B/P Pulse Ox O2 Delivery O2 Flow Rate FiO2 09/29/16 08:54 35 09/29/16 08:15 60 17 99/67 98 09/29/16 08:00 98.0 09/29/16 06:00 Mechanical Ventilator Intake and Output 09/28/16 09/28/16 09/29/16 15:00 23:00 07:00 Intake Total 543.04 ml 764.48 ml 650 ml Output Total 180 ml 137 ml 90 ml Balance 363.04 ml 627.48 ml 560 ml Results Result Diagram: 09/29/16 0430 09/29/16 0430 Results 24 hrs Laboratory Tests Test 09/28/16 11:30 09/28/16 12:35 09/28/16 13:24 09/28/16 14:45 Urine Color YELLOW Urine Clarity CLOUDY A Urine pH 5.0 Urine Specific [place] 1.014 Urine Ketones NEGATIVE Urine Nitrite NEGATIVE Urine Bilirubin NEGATIVE Urine Urobilinogen NEGATIVE Urine Leukocyte Esterase 3+ H Urine Microscopic RBC 14 H Urine Microscopic WBC 50 H Urine Squamous Epithelial Cells FEW Urine Bacteria FEW A Urine Hemoglobin 1+ H Urine Random Creatinine 19.49 L Urine Random Sodium < 13 L Urine Glucose NEGATIVE Urine Total Protein 111.0 H Bedside Glucose 91 95 Prothrombin Time 22.3 #H Prothrombin Time Ratio 1.7 INR International Normalized Ratio 1.94 Activated Partial Thromboplast Time 45.1 H Test 09/28/16 17:51 09/28/16 20:01 09/28/16 23:56 09/29/16 04:30 Bedside Glucose 124 141 130 White Blood Count 9.8 # Red Blood Count 3.38 L Hemoglobin 9.6 L Hematocrit 32.1 L Mean Corpuscular Volume 95.0 Mean Corpuscular Hemoglobin 28.4 L Mean Corpuscular Hemoglobin Concent 29.9 L Red Cell Distribution Width 19.1 H Platelet Count 155 # Mean Platelet Volume 11.7 H Neutrophils % 75.2 Lymphocytes % 7.1 L Monocytes % 7.0 Eosinophils % 9.2 H Basophils % 0.7 Nucleated Red Blood Cells % 0.0 Neutrophils # (Manual) 7.4 Lymphocytes # 0.7 L Monocytes # 0.7 Eosinophils # 0.9 H Basophils # 0.1 Nucleated Red Blood Cells # 0.0 Sodium Level 134 L Potassium Level 3.2 L Chloride Level 106 Carbon Dioxide Level 17 L Anion Gap 14 Blood Urea Nitrogen 80 H Creatinine 0.90 Glucose Level 378 #H Calcium Level 8.8 Phosphorus Level 4.1 Magnesium Level 2.4 Test 09/29/16 05:20 Bedside Glucose 196 Medications Medications Current Medications Ondansetron HCl (Zofran Inj) 4 mg Q6H PRN IV NAUSEA AND/OR VOMITING Last administered on 09/24/16 11:53; Admin Dose 4 MG; Start 09/15/16 at 06:30 Acetaminophen (Tylenol Tab) 650 mg Q6H PRN PO PAIN LEVEL 1-3 OR FEVER Last administered on 09/16/16 20:10; Admin Dose 650 MG; Start 09/15/16 at 06:30 Acetaminophen (Tylenol Supp) 650 mg Q6H PRN [place] PAIN LEVEL 1-3 OR FEVER; Start 09/15/16 at 06:30 Amiodarone HCl (Cordarone) 200 mg DAILY GTB Last administered on 09/28/16 08: 31; Admin Dose 200 MG; Start 09/15/16 at 09:00 Bisacodyl (Dulcolax Supp) 10 mg Q24H PRN [place] CONSTIPATION; Start 09/15/16 at 06: 30 Chlorhexidine Gluconate (Peridex) 15 ml BID MM Last administered on 09/28/16 20:03; Admin Dose 15 ML; Start 09/15/16 at 09:00 Docusate Sodium (Colace) 200 mg QHS PRN PO CONSTIPATION; Start 09/15/16 at 06:30 Lisinopril (Zestril) 2.5 mg BID GTB Last administered on 09/15/16 09:24; Admin Dose 2.5 MG; Start 09/15/16 at 09:00; Status Future Hold Epoetin Kt (Epogen (Non Esrd/Non Oncology)) 3,000 units MoWeFr@17 SC Last administered on 09/28/16 18:00; Admin Dose 3,000 UNITS; Start 09/16/16 at 17:00 Epoetin Kt (Epogen (Non Esrd/Non Oncology)) 2,000 units MoWeFr@17 SC Last administered on 09/28/16 17:59; Admin Dose 2,000 UNITS; Start 09/16/16 at 17:00 Diphenhydramine HCl (Benadryl) 25 mg Q6H PRN IV ITCHING Last administered on 20:41; Admin Dose 25 MG; Start 09/15/16 at 21:00 Tramadol HCl (Ultram) 50 mg Q6H PRN GTB PAIN LEVEL 6-10 Last administered on 09:49; Admin Dose 50 MG; Start 09/17/16 at 12:00 Miscellaneous Information 1 ea NOTE XX ; Start 09/17/16 at 12:00 Insulin Aspart (Novolog Insulin Pen) NOVOLOG *MILD* ALGORI... Q6 SC Last administered on 09/29/16 05:25; Admin Dose 2 UNIT; Start 09/18/16 at 06:00 Miscellaneous Information 1 ea NOTE XX ; Start 09/17/16 at 22:45 Glucose (Glutose) 15 gm Q15M PRN PO DECREASED GLUCOSE; Start 09/17/16 at 22:45 Glucose (Glutose) 22.5 gm Q15M PRN PO DECREASED GLUCOSE; Start 09/17/16 at 22:45 Dextrose (D50w Syringe) 25 ml Q15M PRN IV DECREASED GLUCOSE; Start 09/17/16 at 22:45 Dextrose (D50w Syringe) 50 ml Q15M PRN IV DECREASED GLUCOSE; Start 09/17/16 at 22:45 Glucagon (Glucagen) 1 mg Q15M PRN IM DECREASED GLUCOSE; Start 09/17/16 at 22:45 Glucose (Glutose) 15 gm Q15M PRN BUCCAL DECREASED GLUCOSE; Start 09/17/16 at 22: 45 Acetaminophen (Tylenol Tab) 650 mg Q4 PRN GTB PAIN AND OR ELEVATED TEMP Last administered on 09/23/16 00:59; Admin Dose 650 MG; Start 09/18/16 at 11:30 Albuterol (Proventil 0.083% (Neb)) 2.5 mg Q3H PRN NEB WHEEZING AND SOB; Start 09/18/16 at 11:30 Ascorbic Acid (Vitamin C) 500 mg BID PO Last administered on 09/28/16 20:03; Admin Dose 500 MG; Start 09/18/16 at 21:00 Folic Acid (Folic Acid) 1 mg DAILY GTB Last administered on 09/28/16 09:26; Admin Dose 1 MG; Start 09/19/16 at 09:00 Hydroxyzine HCl (Atarax) 25 mg Q8H PRN PO ITCHING; Start 09/18/16 at 11:30 Lorazepam (Ativan) 1 mg Q8 PRN GTB ANXIETY Last administered on 09/22/16 09:17 ; Admin Dose 1 MG; Start 09/18/16 at 11:30 Magnesium Hydroxide (Milk Of Mag) 30 ml DAILY PRN GTB CONSTIPATION Last administered on 09/23/16 17:19; Admin Dose 30 ML; Start 09/18/16 at 11:30 Sodium Biphosphate/ Sodium Phosphate (Fleet Enema Pediatric) 66.6 ml DAILY PRN [place] CONSTIPATION; Start 09/18/16 at 11:30 Lactobacillus Acidophilus/ Rhamnosus (Culturelle) 1 cap BID PO Last administered on 09/28/16 20:03; Admin Dose 1 CAP; Start 09/18/16 at 21:00 Insulin Aspart (Novolog Insulin Pen) 5 unit TID SC Last administered on 20:06; Admin Dose 5 UNIT; Start 09/18/16 at 13:00 Insulin Detemir (Levemir) 18 unit HS SC Last administered on 09/28/16 20:06; Admin Dose 18 UNIT; Start 09/18/16 at 21:00 Morphine Sulfate (morphine) 2 mg Q4H PRN IV PAIN LEVEL 7-10 Last administered on 09/22/16 18:57; Admin Dose 2 MG; Start 09/19/16 at 11:30 Lorazepam (Ativan) 1 mg Q6H PRN IV ANXIETY Last administered on 09/28/16 01:48 ; Admin Dose 1 MG; Start 09/19/16 at 18:30 Midodrine (Proamatine) 5 mg TID GTB Last administered on 09/28/16 20:02; Admin Dose 5 MG; Start 09/21/16 at 06:00 Ferrous Sulfate (Ferrous Sulfate (Ec)) 325 mg TID PO Last administered on 20:03; Admin Dose 325 MG; Start 09/21/16 at 10:00 Multivitamins 30 ml 30 ml DAILY GTB Last administered on 09/28/16 08:30; Admin Dose 30 ML; Start 09/21/16 at 10:30 Vancomycin HCl (Vancocin) 250 ml @ 125 mls/hr Q5D IVPB Last administered on 23:00; Admin Dose 125 MLS/HR; Start 09/21/16 at 22:00 Voriconazole (Vfend) 200 mg BID PO Last administered on 09/28/16 20:14; Admin Dose 200 MG; Start 09/23/16 at 09:30; Stop 09/30/16 at 09:29 Bacitracin (Bacitracin Oint (Ud)) 1 applic BID TOP Last administered on 20:07; Admin Dose 1 APPLIC; Start 09/23/16 at 21:00 Metoclopramide HCl 10 mg 10 mg Q6 IV Last administered on 09/29/16 05:21; Admin Dose 10 MG; Start 09/24/16 at 18:00 Norepinephrine/ Dextrose (Levophed/D5W) 500 ml @ 1.87 mls/hr TITRATE IV Last administered on 09/28/16 11:27; Admin Dose 5.62 MLS/HR; Start 09/25/16 at 07:00 ; Status Future hold Lactulose (Enulose) 20 gm BID PO Last administered on 09/28/16 20:03; Admin Dose 20 GM; Start 09/25/16 at 21:00 IV Flush 10 ml 10 ml PRN PRN IV IV PROTOCOL; Start 09/25/16 at 16:00 Meropenem/Sodium Chloride 50 ml @ 200 mls/hr Q12 IVPB Last administered on 20:15; Admin Dose 200 MLS/HR; Start 09/26/16 at 21:00 Ferric Sodium Gluconate Complex/ Sodium Chloride (Ferrlecit/NS) 110 ml @ 110 mls/hr Q24H IVPB Last administered on 09/28/16 10:24; Admin Dose 110 MLS/HR; Start 09/27/16 at 09:00; Stop 10/01/16 at 09:59 Lansoprazole (Prevacid) 30 mg DAILY@06 GTB Last administered on 09/29/16 05:23 ; Admin Dose 30 MG; Start 09/28/16 at 06:00 ANJEL AMADOR DO Sep 29, 2016 09:34
[2016-09-29] MEDS: SOD FERRIC GLUC COMPLX 125 MG in SOD CHLORIDE 0.9% 100 ML IVPB SCH (09:54)
--- NOTE | 2016-09-29 10:10 | CONS ---
Date/Time of Note Date/Time of Note DATE: 09/29/16 TIME: 10:08 Assessment/Plan Assessment/Plan Additional Assessment/Plan Chest x-ray was reviewed from today which is showing severe pulmonary edema. Next Ventilator setting; AC of 24, tidal volume 550, PEEP of 5, 35% FiO2. Assessment and recommendations; 1. Patient admitted for severe sepsis. 2. Status post tracheostomy due to failure to be weaned from invasive mechanical ventilation. 3. CHF. 4. Status post large-volume paracentesis yesterday. 5. Generalized deconditioning. Continue current treatment. Prognosis is poor. Consultation Date/Type/Reason Admit Date/Time Sep 15, 2016 at 01:59 Initial Consult Date 09/16/16 Type of Consultation: Pulmonary/critical care 24 HR Interval Summary Free Text/Dictation Patient condition remains critical. Patient however has remained hemodynamically stable not requiring any further pressor support. Patient however did become hypotensive yesterday after undergoing large volume paracentesis. General exam; middle-aged woman, on ventilator via tracheostomy, awake and alert. Currently in no distress. Exam/Review of Systems Vital Signs Vitals Vital Signs Date Time Temp Pulse Resp B/P Pulse Ox O2 Delivery O2 Flow Rate FiO2 09/29/16 08:54 35 09/29/16 08:15 60 17 99/67 98 09/29/16 08:00 98.0 09/29/16 06:00 Mechanical Ventilator Intake and Output 09/28/16 09/28/16 09/29/16 15:00 23:00 07:00 Intake Total 543.04 ml 764.48 ml 650 ml Output Total 180 ml 137 ml 90 ml Balance 363.04 ml 627.48 ml 560 ml Exam HEENT exam; supple neck, positive JVD. No lymphadenopathy. Midline trachea. No thyromegaly. Tracheostomy in place. Insertion site is clean. Pupils are equal and reactive to light. Patient has fair dentition. Chest exam; diminished breath sounds bilaterally. S1-S2 audible, no murmurs. Regular rhythm. Abdomen exam; soft, G-tube in place. Bowel sounds audible. Nontender. Extremity exam; 2+ generalized edema. [employer] exam; no focal motor deficit. Results Result Diagram: 09/29/16 0430 09/29/16 0430 Results 24 hrs Laboratory Tests Test 09/28/16 11:30 09/28/16 12:35 09/28/16 13:24 09/28/16 14:45 Urine Color YELLOW Urine Clarity CLOUDY A Urine pH 5.0 Urine Specific [place] 1.014 Urine Ketones NEGATIVE Urine Nitrite NEGATIVE Urine Bilirubin NEGATIVE Urine Urobilinogen NEGATIVE Urine Leukocyte Esterase 3+ H Urine Microscopic RBC 14 H Urine Microscopic WBC 50 H Urine Squamous Epithelial Cells FEW Urine Bacteria FEW A Urine Hemoglobin 1+ H Urine Random Creatinine 19.49 L Urine Random Sodium < 13 L Urine Glucose NEGATIVE Urine Total Protein 111.0 H Bedside Glucose 91 95 Prothrombin Time 22.3 #H Prothrombin Time Ratio 1.7 INR International Normalized Ratio 1.94 Activated Partial Thromboplast Time 45.1 H Test 09/28/16 17:51 09/28/16 20:01 09/28/16 23:56 09/29/16 04:30 Bedside Glucose 124 141 130 White Blood Count 9.8 # Red Blood Count 3.38 L Hemoglobin 9.6 L Hematocrit 32.1 L Mean Corpuscular Volume 95.0 Mean Corpuscular Hemoglobin 28.4 L Mean Corpuscular Hemoglobin Concent 29.9 L Red Cell Distribution Width 19.1 H Platelet Count 155 # Mean Platelet Volume 11.7 H Neutrophils % 75.2 Lymphocytes % 7.1 L Monocytes % 7.0 Eosinophils % 9.2 H Basophils % 0.7 Nucleated Red Blood Cells % 0.0 Neutrophils # (Manual) 7.4 Lymphocytes # 0.7 L Monocytes # 0.7 Eosinophils # 0.9 H Basophils # 0.1 Nucleated Red Blood Cells # 0.0 Sodium Level 134 L Potassium Level 3.2 L Chloride Level 106 Carbon Dioxide Level 17 L Anion Gap 14 Blood Urea Nitrogen 80 H Creatinine 0.90 Glucose Level 378 #H Calcium Level 8.8 Phosphorus Level 4.1 Magnesium Level 2.4 Test 09/29/16 05:20 09/29/16 09:35 Bedside Glucose 196 204 Medications Medications Current Medications Ondansetron HCl (Zofran Inj) 4 mg Q6H PRN IV NAUSEA AND/OR VOMITING Last administered on 09/24/16 11:53; Admin Dose 4 MG; Start 09/15/16 at 06:30 Acetaminophen (Tylenol Tab) 650 mg Q6H PRN PO PAIN LEVEL 1-3 OR FEVER Last administered on 09/16/16 20:10; Admin Dose 650 MG; Start 09/15/16 at 06:30 Acetaminophen (Tylenol Supp) 650 mg Q6H PRN [place] PAIN LEVEL 1-3 OR FEVER; Start 09/15/16 at 06:30 Amiodarone HCl (Cordarone) 200 mg DAILY GTB Last administered on 09/29/16 09: 17; Admin Dose 200 MG; Start 09/15/16 at 09:00 Bisacodyl (Dulcolax Supp) 10 mg Q24H PRN [place] CONSTIPATION; Start 09/15/16 at 06: 30 Chlorhexidine Gluconate (Peridex) 15 ml BID MM Last administered on 09/29/16 09:17; Admin Dose 15 ML; Start 09/15/16 at 09:00 Docusate Sodium (Colace) 200 mg QHS PRN PO CONSTIPATION; Start 09/15/16 at 06:30 Lisinopril (Zestril) 2.5 mg BID GTB Last administered on 09/15/16 09:24; Admin Dose 2.5 MG; Start 09/15/16 at 09:00; Status Future Hold Epoetin Kt (Epogen (Non Esrd/Non Oncology)) 3,000 units MoWeFr@17 SC Last administered on 09/28/16 18:00; Admin Dose 3,000 UNITS; Start 09/16/16 at 17:00 Epoetin Kt (Epogen (Non Esrd/Non Oncology)) 2,000 units MoWeFr@17 SC Last administered on 09/28/16 17:59; Admin Dose 2,000 UNITS; Start 09/16/16 at 17:00 Diphenhydramine HCl (Benadryl) 25 mg Q6H PRN IV ITCHING Last administered on 20:41; Admin Dose 25 MG; Start 09/15/16 at 21:00 Tramadol HCl (Ultram) 50 mg Q6H PRN GTB PAIN LEVEL 6-10 Last administered on 09:16; Admin Dose 50 MG; Start 09/17/16 at 12:00 Miscellaneous Information 1 ea NOTE XX ; Start 09/17/16 at 12:00 Insulin Aspart (Novolog Insulin Pen) NOVOLOG *MILD* ALGORI... Q6 SC Last administered on 09/29/16 05:25; Admin Dose 2 UNIT; Start 09/18/16 at 06:00 Miscellaneous Information 1 ea NOTE XX ; Start 09/17/16 at 22:45 Glucose (Glutose) 15 gm Q15M PRN PO DECREASED GLUCOSE; Start 09/17/16 at 22:45 Glucose (Glutose) 22.5 gm Q15M PRN PO DECREASED GLUCOSE; Start 09/17/16 at 22:45 Dextrose (D50w Syringe) 25 ml Q15M PRN IV DECREASED GLUCOSE; Start 09/17/16 at 22:45 Dextrose (D50w Syringe) 50 ml Q15M PRN IV DECREASED GLUCOSE; Start 09/17/16 at 22:45 Glucagon (Glucagen) 1 mg Q15M PRN IM DECREASED GLUCOSE; Start 09/17/16 at 22:45 Glucose (Glutose) 15 gm Q15M PRN BUCCAL DECREASED GLUCOSE; Start 09/17/16 at 22: 45 Acetaminophen (Tylenol Tab) 650 mg Q4 PRN GTB PAIN AND OR ELEVATED TEMP Last administered on 09/23/16 00:59; Admin Dose 650 MG; Start 09/18/16 at 11:30 Albuterol (Proventil 0.083% (Neb)) 2.5 mg Q3H PRN NEB WHEEZING AND SOB; Start 09/18/16 at 11:30 Ascorbic Acid (Vitamin C) 500 mg BID PO Last administered on 09/29/16 09:16; Admin Dose 500 MG; Start 09/18/16 at 21:00 Folic Acid (Folic Acid) 1 mg DAILY GTB Last administered on 09/29/16 09:16; Admin Dose 1 MG; Start 09/19/16 at 09:00 Hydroxyzine HCl (Atarax) 25 mg Q8H PRN PO ITCHING; Start 09/18/16 at 11:30 Lorazepam (Ativan) 1 mg Q8 PRN GTB ANXIETY Last administered on 09/22/16 09:17 ; Admin Dose 1 MG; Start 09/18/16 at 11:30 Magnesium Hydroxide (Milk Of Mag) 30 ml DAILY PRN GTB CONSTIPATION Last administered on 09/23/16 17:19; Admin Dose 30 ML; Start 09/18/16 at 11:30 Sodium Biphosphate/ Sodium Phosphate (Fleet Enema Pediatric) 66.6 ml DAILY PRN [place] CONSTIPATION; Start 09/18/16 at 11:30 Lactobacillus Acidophilus/ Rhamnosus (Culturelle) 1 cap BID PO Last administered on 09/29/16 09:16; Admin Dose 1 CAP; Start 09/18/16 at 21:00 Insulin Aspart (Novolog Insulin Pen) 5 unit TID SC Last administered on 09:36; Admin Dose 5 UNIT; Start 09/18/16 at 13:00 Insulin Detemir (Levemir) 18 unit HS SC Last administered on 09/28/16 20:06; Admin Dose 18 UNIT; Start 09/18/16 at 21:00 Morphine Sulfate (morphine) 2 mg Q4H PRN IV PAIN LEVEL 7-10 Last administered on 09/22/16 18:57; Admin Dose 2 MG; Start 09/19/16 at 11:30 Lorazepam (Ativan) 1 mg Q6H PRN IV ANXIETY Last administered on 09/28/16 01:48 ; Admin Dose 1 MG; Start 09/19/16 at 18:30 Midodrine (Proamatine) 5 mg TID GTB Last administered on 09/29/16 09:16; Admin Dose 5 MG; Start 09/21/16 at 06:00 Ferrous Sulfate (Ferrous Sulfate (Ec)) 325 mg TID PO Last administered on 09:16; Admin Dose 325 MG; Start 09/21/16 at 10:00 Multivitamins 30 ml 30 ml DAILY GTB Last administered on 09/29/16 09:17; Admin Dose 30 ML; Start 09/21/16 at 10:30 Vancomycin HCl (Vancocin) 250 ml @ 125 mls/hr Q5D IVPB Last administered on 23:00; Admin Dose 125 MLS/HR; Start 09/21/16 at 22:00 Voriconazole (Vfend) 200 mg BID PO Last administered on 09/29/16 09:17; Admin Dose 200 MG; Start 09/23/16 at 09:30; Stop 09/30/16 at 09:29 Bacitracin (Bacitracin Oint (Ud)) 1 applic BID TOP Last administered on 09:17; Admin Dose 1 APPLIC; Start 09/23/16 at 21:00 Metoclopramide HCl 10 mg 10 mg Q6 IV Last administered on 09/29/16 05:21; Admin Dose 10 MG; Start 09/24/16 at 18:00 Norepinephrine/ Dextrose (Levophed/D5W) 500 ml @ 1.87 mls/hr TITRATE IV Last administered on 09/28/16 11:27; Admin Dose 5.62 MLS/HR; Start 09/25/16 at 07:00 ; Status Future hold Lactulose (Enulose) 20 gm BID PO Last administered on 09/29/16 09:17; Admin Dose 20 GM; Start 09/25/16 at 21:00 IV Flush 10 ml 10 ml PRN PRN IV IV PROTOCOL; Start 09/25/16 at 16:00 Meropenem/Sodium Chloride 50 ml @ 200 mls/hr Q12 IVPB Last administered on 09:28; Admin Dose 200 MLS/HR; Start 09/26/16 at 21:00 Ferric Sodium Gluconate Complex/ Sodium Chloride (Ferrlecit/NS) 110 ml @ 110 mls/hr Q24H IVPB Last administered on 09/29/16 09:54; Admin Dose 110 MLS/HR; Start 09/27/16 at 09:00; Stop 10/01/16 at 09:59 Lansoprazole 30 mg 30 mg DAILY@06 GTB Last administered on 09/29/16 05:23; Admin Dose 30 MG; Start 09/28/16 at 06:00 Potassium Chloride (KCl 20 MEQ/50 ML SW) 50 ml @ 25 mls/hr Q2H IVPB ; Start at 09:30; Stop 09/29/16 at 13:29 RAMON COWAN Sep 29, 2016 10:10
[2016-09-29] MEDS: POTASSIUM CHLORIDE 50 ML IVPB SCH ×2 (11:04→12:26)
--- NOTE | 2016-09-29 13:30 | PN ---
DATE: 09/29/2016 SUBJECTIVE DATA: No acute changes overnight. The patient remains on Levophed drip. She is lethargic, in no distress. OBJECTIVE DATA: VITAL SIGNS: Temperature 98, pulse 60, respirations 24, blood pressure 96/56, saturation 100 on 30 percent. LABORATORY AND DIAGNOSTIC DATA: WBC 9.8, H and H 9.6 and 32.1, platelets 155, neutrophils 75.2. BUN 80, creatinine 0.90. Repeat cultures on September 26, blood and urine are negative. Stool for C difficile on September 25 negative. Chest x-ray from yesterday revealed increased pulmonary edema. INDWELLINGS: Trach, PEG, Matthew rectal tube, PICC line. ANTIMICROBIALS: Vancomycin, meropenem, voriconazole. PHYSICAL EXAMINATION: GENERAL: Chronically ill-appearing, obese, middle-aged woman, in no distress. HEENT: Head atraumatic, normocephalic. Sclerae anicteric. Buccal mucosa dry. NECK: Supple. Tracheostomy present. LUNGS: Chest rise symmetrical. Breath sounds diminished at bases with scattered rhonchi. HEART: S1, S2. ABDOMEN: Obese, soft, bowel tones present. EXTREMITIES: With bilateral edema. ASSESSMENT: 1. Sepsis with shock. 2. Healthcare-associated pneumonia. 3. Recurrent ascites, status post paracentesis on admission, and on September 28, 8.3 L removed, so far ascetic fluid has been negative. 4. Status post Delia glabrata urinary tract infection. 5. Acute renal failure on chronic kidney disease. 6. Cardiomyopathy with decompensated congestive heart failure. 7. Muscle dystrophy. PLAN: The patient remains hemodynamically unstable, covered with broad-spectrum antibiotics, repeat cultures negative, continue current treatment, prognosis poor. Discussed with RN. Dictated By: Anita Ingram NP /reynaldo/willy /Document#: [id number]
--- NOTE | 2016-09-29 13:51 | CONS ---
Date/Time of Note Date/Time of Note DATE: 09/29/16 TIME: 13:48 Assessment/Plan Assessment/Plan Chief Complaint/Hosp Course Assessment: Septic shock Healthcare-associated pneumonia - on antibiotics Acute on chronic systolic heart failure - now worsened again Cardiomyopathy, LVEF 20-25% - unclear etiology, unclear if patient has ever had ischemic workup, possibly due to muscular dystrophy Acute kidney injury on chronic kidney disease Chronic ventilator-dependent respiratory failure Muscular dystrophy Paroxysmal atrial fibrillation and atrial flutter History of ventricular tachycardia (Torsades de pointes) - status post Bi-V ICD upgrade January 2015 (mDialog) Diabetes mellitus Anemia of chronic disease History of right lower extremity deep vein thrombosis Severe peripheral arterial disease - prior CT LE angio with 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 and severe disease of popliteal Recommendations: - Levophed to keep MAP>65, wean as tolerated - has been restarted on diuretics, continue Bumex 1mg IV daily - off beta-armando and JUAN inhibitor due to hypotension and renal failure, resume for systolic heart failure as able - continue amiodarone 200mg daily - consider restarting on chronic anticoagulation paroxysmal atrial fibrillation and history of deep vein thrombosis when clinically more stable - echocardiogram showed LVEF 20-25%, RVSP 63 mmHg Problems: Consultation Date/Type/Reason Admit Date/Time Sep 15, 2016 at 01:59 Initial Consult Date 09/18/16 Type of Consultation: Cardiology 24 HR Interval Summary Free Text/Dictation Remains on Levophed drip. Chest x-ray yesterday with worsening pulmonary edema. Status post paracentesis with removal of 8300cc yesterday. Detailed Summary Additional Comments Unable to obtain review of systems, patient on ventilator. Exam/Review of Systems Vital Signs Vitals Vital Signs Date Time Temp Pulse Resp B/P Pulse Ox O2 Delivery O2 Flow Rate FiO2 09/29/16 13:15 60 11 100/73 100 09/29/16 12:00 97.6 09/29/16 12:00 30 09/29/16 06:00 Mechanical Ventilator Intake and Output 09/28/16 09/28/16 09/29/16 15:00 23:00 07:00 Intake Total 543.04 ml 764.48 ml 650 ml Output Total 180 ml 137 ml 90 ml Balance 363.04 ml 627.48 ml 560 ml Exam Constitutional: No alert, No distress Psych: No nl mood/affect, No no complaints Head: atraumatic, normocephalic Eyes: nl conjunctiva, nl lids ENMT: nl external ears & nose, nl nasal mucosa & septum Neck: other (tracheostomy) Respiratory: crackles/rales, diminished breath sounds Cardiovascular: irregular rhythm Gastrointestinal: non-tender, soft Extremities: No clubbing, No cyanosis Neurological: No nl mental status, No nl speech Results Result Diagram: 09/29/16 0430 09/29/16 0430 Results 24 hrs Laboratory Tests Test 09/28/16 14:45 09/28/16 17:51 09/28/16 20:01 09/28/16 23:56 Prothrombin Time 22.3 #H Prothrombin Time Ratio 1.7 INR International Normalized Ratio 1.94 Activated Partial Thromboplast Time 45.1 H Bedside Glucose 124 141 130 Test 09/29/16 04:30 09/29/16 05:20 09/29/16 09:35 09/29/16 12:21 White Blood Count 9.8 # Red Blood Count 3.38 L Hemoglobin 9.6 L Hematocrit 32.1 L Mean Corpuscular Volume 95.0 Mean Corpuscular Hemoglobin 28.4 L Mean Corpuscular Hemoglobin Concent 29.9 L Red Cell Distribution Width 19.1 H Platelet Count 155 # Mean Platelet Volume 11.7 H Neutrophils % 75.2 Lymphocytes % 7.1 L Monocytes % 7.0 Eosinophils % 9.2 H Basophils % 0.7 Nucleated Red Blood Cells % 0.0 Neutrophils # (Manual) 7.4 Lymphocytes # 0.7 L Monocytes # 0.7 Eosinophils # 0.9 H Basophils # 0.1 Nucleated Red Blood Cells # 0.0 Sodium Level 134 L Potassium Level 3.2 L Chloride Level 106 Carbon Dioxide Level 17 L Anion Gap 14 Blood Urea Nitrogen 80 H Creatinine 0.90 Glucose Level 378 #H Calcium Level 8.8 Phosphorus Level 4.1 Magnesium Level 2.4 Bedside Glucose 196 204 174 Test 09/29/16 13:31 Bedside Glucose 208 Medications Medications Current Medications Ondansetron HCl (Zofran Inj) 4 mg Q6H PRN IV NAUSEA AND/OR VOMITING Last administered on 09/24/16t 11:53; Admin Dose 4 MG; Start 09/15/16 at 06:30 Acetaminophen (Tylenol Tab) 650 mg Q6H PRN PO PAIN LEVEL 1-3 OR FEVER Last administered on 09/16/16 20:10; Admin Dose 650 MG; Start 09/15/16 at 06:30 Acetaminophen (Tylenol Supp) 650 mg Q6H PRN AR PAIN LEVEL 1-3 OR FEVER; Start 09/15/16 at 06:30 Amiodarone HCl (Cordarone) 200 mg DAILY GTB Last administered on 09/29/16 09: 17; Admin Dose 200 MG; Start 09/15/16 at 09:00 Bisacodyl (Dulcolax Supp) 10 mg Q24H PRN AR CONSTIPATION; Start 09/15/16 at 06: 30 Chlorhexidine Gluconate (Peridex) 15 ml BID MM Last administered on 09/29/16 09:17; Admin Dose 15 ML; Start 09/15/16 at 09:00 Docusate Sodium (Colace) 200 mg QHS PRN PO CONSTIPATION; Start 09/15/16 at 06:30 Lisinopril (Zestril) 2.5 mg BID GTB Last administered on 09/15/16 09:24; Admin Dose 2.5 MG; Start 09/15/16 at 09:00; Status Future Hold Epoetin Kt (Epogen (Non Esrd/Non Oncology)) 3,000 units MoWeFr@17 SC Last administered on 09/28/16 18:00; Admin Dose 3,000 UNITS; Start 09/16/16 at 17:00 Epoetin Kt (Epogen (Non Esrd/Non Oncology)) 2,000 units MoWeFr@17 SC Last administered on 09/28/16 17:59; Admin Dose 2,000 UNITS; Start 09/16/16 at 17:00 Diphenhydramine HCl (Benadryl) 25 mg Q6H PRN IV ITCHING Last administered on 20:41; Admin Dose 25 MG; Start 09/15/16 at 21:00 Tramadol HCl (Ultram) 50 mg Q6H PRN GTB PAIN LEVEL 6-10 Last administered on 09:16; Admin Dose 50 MG; Start 09/17/16 at 12:00 Miscellaneous Information 1 ea NOTE XX ; Start 09/17/16 at 12:00 Insulin Aspart (Novolog Insulin Pen) NOVOLOG *MILD* ALGORI... Q6 SC Last administered on 09/29/16 12:25; Admin Dose 1 UNIT; Start 09/18/16 at 06:00 Miscellaneous Information 1 ea NOTE XX ; Start 09/17/16 at 22:45 Glucose (Glutose) 15 gm Q15M PRN PO DECREASED GLUCOSE; Start 09/17/16 at 22:45 Glucose (Glutose) 22.5 gm Q15M PRN PO DECREASED GLUCOSE; Start 09/17/16 at 22:45 Dextrose (D50w Syringe) 25 ml Q15M PRN IV DECREASED GLUCOSE; Start 09/17/16 at 22:45 Dextrose (D50w Syringe) 50 ml Q15M PRN IV DECREASED GLUCOSE; Start 09/17/16 at 22:45 Glucagon (Glucagen) 1 mg Q15M PRN IM DECREASED GLUCOSE; Start 09/17/16 at 22:45 Glucose (Glutose) 15 gm Q15M PRN BUCCAL DECREASED GLUCOSE; Start 09/17/16 at 22: 45 Acetaminophen (Tylenol Tab) 650 mg Q4 PRN GTB PAIN AND OR ELEVATED TEMP Last administered on 09/23/16 00:59; Admin Dose 650 MG; Start 09/18/16 at 11:30 Albuterol (Proventil 0.083% (Neb)) 2.5 mg Q3H PRN NEB WHEEZING AND SOB; Start 09/18/16 at 11:30 Ascorbic Acid (Vitamin C) 500 mg BID PO Last administered on 09/29/16 09:16; Admin Dose 500 MG; Start 09/18/16 at 21:00 Folic Acid (Folic Acid) 1 mg DAILY GTB Last administered on 09/29/16 09:16; Admin Dose 1 MG; Start 09/19/16 at 09:00 Hydroxyzine HCl (Atarax) 25 mg Q8H PRN PO ITCHING; Start 09/18/16 at 11:30 Lorazepam (Ativan) 1 mg Q8 PRN GTB ANXIETY Last administered on 09/22/16 09:17 ; Admin Dose 1 MG; Start 09/18/16 at 11:30 Magnesium Hydroxide (Milk Of Mag) 30 ml DAILY PRN GTB CONSTIPATION Last administered on 09/23/16 17:19; Admin Dose 30 ML; Start 09/18/16 at 11:30 Sodium Biphosphate/ Sodium Phosphate (Fleet Enema Pediatric) 66.6 ml DAILY PRN AR CONSTIPATION; Start 09/18/16 at 11:30 Lactobacillus Acidophilus/ Rhamnosus (Culturelle) 1 cap BID PO Last administered on 09/29/16 09:16; Admin Dose 1 CAP; Start 09/18/16 at 21:00 Insulin Aspart (Novolog Insulin Pen) 5 unit TID SC Last administered on 13:36; Admin Dose 5 UNIT; Start 09/18/16 at 13:00 Insulin Detemir (Levemir) 18 unit HS SC Last administered on 09/28/16 20:06; Admin Dose 18 UNIT; Start 09/18/16 at 21:00 Morphine Sulfate (morphine) 2 mg Q4H PRN IV PAIN LEVEL 7-10 Last administered on 09/22/16 18:57; Admin Dose 2 MG; Start 09/19/16 at 11:30 Lorazepam (Ativan) 1 mg Q6H PRN IV ANXIETY Last administered on 09/28/16 01:48 ; Admin Dose 1 MG; Start 09/19/16 at 18:30 Midodrine (Proamatine) 5 mg TID GTB Last administered on 09/29/16 12:06; Admin Dose 5 MG; Start 09/21/16 at 06:00 Ferrous Sulfate (Ferrous Sulfate (Ec)) 325 mg TID PO Last administered on 12:06; Admin Dose 325 MG; Start 09/21/16 at 10:00 Multivitamins 30 ml 30 ml DAILY GTB Last administered on 09/29/16 09:17; Admin Dose 30 ML; Start 09/21/16 at 10:30 Vancomycin HCl (Vancocin) 250 ml @ 125 mls/hr Q5D IVPB Last administered on 23:00; Admin Dose 125 MLS/HR; Start 09/21/16 at 22:00 Voriconazole (Vfend) 200 mg BID PO Last administered on 09/29/16 09:17; Admin Dose 200 MG; Start 09/23/16 at 09:30; Stop 09/30/16 at 09:29 Bacitracin (Bacitracin Oint (Ud)) 1 applic BID TOP Last administered on 09:17; Admin Dose 1 APPLIC; Start 09/23/16 at 21:00 Metoclopramide HCl 10 mg 10 mg Q6 IV Last administered on 09/29/16 12:06; Admin Dose 10 MG; Start 09/24/16 at 18:00 Norepinephrine/ Dextrose (Levophed/D5W) 500 ml @ 1.87 mls/hr TITRATE IV Last administered on 09/29/16 11:52; Admin Dose 28.12 MLS/HR; Start 09/25/16 at 07: 00; Status Future hold Lactulose (Enulose) 20 gm BID PO Last administered on 09/29/16 09:17; Admin Dose 20 GM; Start 09/25/16 at 21:00 IV Flush 10 ml 10 ml PRN PRN IV IV PROTOCOL; Start 09/25/16 at 16:00 Meropenem/Sodium Chloride 50 ml @ 200 mls/hr Q12 IVPB Last administered on 09:28; Admin Dose 200 MLS/HR; Start 09/26/16 at 21:00 Ferric Sodium Gluconate Complex/ Sodium Chloride (Ferrlecit/NS) 110 ml @ 110 mls/hr Q24H IVPB Last administered on 09/29/16 09:54; Admin Dose 110 MLS/HR; Start 09/27/16 at 09:00; Stop 10/01/16 at 09:59 Lansoprazole (Prevacid) 30 mg DAILY@06 GTB Last administered on 09/29/16 05:23 ; Admin Dose 30 MG; Start 09/28/16 at 06:00 ERICK GUTHRIE MD Sep 29, 2016 13:51
--- NOTE | 2016-09-29 17:19 | PN ---
Date/Time of Note Date/Time of Note DATE: 09/29/16 TIME: 17:12 Assessment/Plan VTE Prophylaxis VTE Prophylaxis Intervention: SCD's Lines/Catheters IV Catheter Type (from Nrsg): PICC Line Central line still needed: Yes Urinary Cath still in place: Yes Reason Cath still needed: terminal illness/intractable pain Assessment/Plan Chief Complaint/Hosp Course Assessment/Plan 1. Septic shock due to health care associated PNA- off levophed, but on midodrine, attempt to wean 2. Acute on chronic Congestive heart failure. 3. Healthcare associated pneumonia. 4. Chronic Trach/vent dependent respiratory failure 5. Cardiomyopathy with EF of 30% to 35%, Bi-VAICD 6. ABIB/AFlutter-Currently paced-Not on anticoag 7. Delia Glabrata UTI with <10,000 cc. -Voriconazole Gtube x 7days 8. Chronic anoxic encephalopathy. 9. Dysphagia dislodged/nonfunctional G-tube. Status post gtube replacement 09/22 10. Ascites. Stable -Status post paracentesis yesterday 11. Diabetes - A1c = 5.2. 12. Acute kidney injury on chronic kidney disease. resolved 13. History of Hypertension, now with hypertension.-Antihypertensives on hold- Defer cards for further management. 14. History of quadriplegia secondary to muscular dystrophy 15. Anemia: Hemoglobin presently stable- on Epogen 16. Pulmonary hypertension. 17. Leukocytosis,possibly 2/2 #3 &#6 18.Diarrhea-Lactulose induced? vs others DVT prophylaxis: SCDs PUD prophylaxis: Protonix Plan: IV abx as per ID- meropenem off levephed, but still on midodrine Pulmonary has been following, K replacement as needed. Pt is not doing well overall, palliative to discuss goals of care appreciate other subspecialty help paracentesis done yesterday, episode of hypotension as it was large volume. protonix Hb low- on epogen, monitor it and Prn transfusion patient back to neurologic baseline More than 35 min spent on this encounter. Problems: Subjective 24 Hr Interval Summary Free Text/Dictation patient not complaining of any acute issues. complains of chronic side pain. Exam/Review of Systems Vital Signs Vitals Vital Signs Date Time Temp Pulse Resp B/P Pulse Ox O2 Delivery O2 Flow Rate FiO2 09/29/16 16:15 63 19 90/69 100 09/29/16 16:00 97.7 09/29/16 12:00 30 09/29/16 06:00 Mechanical Ventilator Intake and Output 09/28/16 09/28/16 09/29/16 15:00 23:00 07:00 Intake Total 543.04 ml 764.48 ml 650 ml Output Total 180 ml 137 ml 90 ml Balance 363.04 ml 627.48 ml 560 ml Exam Constitutional: non-verbal, opens eyes and follows commands and nods head ENMT: other (+ tracheostomy ), atruamtic Neck: supple midline, with trach Respiratory: other (Bilateral coarse BS +) Cardiovascular: regular rate nl pulses Gastrointestinal: soft, non-tender Results Result Diagram: 09/29/16 0430 09/29/16 0430 Results 24 hrs Laboratory Tests Test 09/28/16 17:51 09/28/16 20:01 09/28/16 23:56 09/29/16 04:30 Bedside Glucose 124 141 130 White Blood Count 9.8 # Red Blood Count 3.38 L Hemoglobin 9.6 L Hematocrit 32.1 L Mean Corpuscular Volume 95.0 Mean Corpuscular Hemoglobin 28.4 L Mean Corpuscular Hemoglobin Concent 29.9 L Red Cell Distribution Width 19.1 H Platelet Count 155 # Mean Platelet Volume 11.7 H Neutrophils % 75.2 Lymphocytes % 7.1 L Monocytes % 7.0 Eosinophils % 9.2 H Basophils % 0.7 Nucleated Red Blood Cells % 0.0 Neutrophils # (Manual) 7.4 Lymphocytes # 0.7 L Monocytes # 0.7 Eosinophils # 0.9 H Basophils # 0.1 Nucleated Red Blood Cells # 0.0 Sodium Level 134 L Potassium Level 3.2 L Chloride Level 106 Carbon Dioxide Level 17 L Anion Gap 14 Blood Urea Nitrogen 80 H Creatinine 0.90 Glucose Level 378 #H Calcium Level 8.8 Phosphorus Level 4.1 Magnesium Level 2.4 Test 09/29/16 05:20 09/29/16 09:35 09/29/16 12:21 09/29/16 13:31 Bedside Glucose 196 204 174 208 Medications Medications Current Medications Ondansetron HCl (Zofran Inj) 4 mg Q6H PRN IV NAUSEA AND/OR VOMITING Last administered on 09/24/16t 11:53; Admin Dose 4 MG; Start 09/15/16 at 06:30 Acetaminophen (Tylenol Tab) 650 mg Q6H PRN PO PAIN LEVEL 1-3 OR FEVER Last administered on 09/16/16 20:10; Admin Dose 650 MG; Start 09/15/16 at 06:30 Acetaminophen (Tylenol Supp) 650 mg Q6H PRN MD PAIN LEVEL 1-3 OR FEVER; Start 09/15/16 at 06:30 Amiodarone HCl (Cordarone) 200 mg DAILY GTB Last administered on 09/29/16 09: 17; Admin Dose 200 MG; Start 09/15/16 at 09:00 Bisacodyl (Dulcolax Supp) 10 mg Q24H PRN MD CONSTIPATION; Start 09/15/16 at 06: 30 Chlorhexidine Gluconate (Peridex) 15 ml BID MM Last administered on 09/29/16 09:17; Admin Dose 15 ML; Start 09/15/16 at 09:00 Docusate Sodium (Colace) 200 mg QHS PRN PO CONSTIPATION; Start 09/15/16 at 06:30 Lisinopril (Zestril) 2.5 mg BID GTB Last administered on 09/15/16 09:24; Admin Dose 2.5 MG; Start 09/15/16 at 09:00; Status Future Hold Epoetin Kt (Epogen (Non Esrd/Non Oncology)) 3,000 units MoWeFr@17 SC Last administered on 09/28/16 18:00; Admin Dose 3,000 UNITS; Start 09/16/16 at 17:00 Epoetin Kt (Epogen (Non Esrd/Non Oncology)) 2,000 units MoWeFr@17 SC Last administered on 09/28/16 17:59; Admin Dose 2,000 UNITS; Start 09/16/16 at 17:00 Diphenhydramine HCl (Benadryl) 25 mg Q6H PRN IV ITCHING Last administered on 20:41; Admin Dose 25 MG; Start 09/15/16 at 21:00 Tramadol HCl (Ultram) 50 mg Q6H PRN GTB PAIN LEVEL 6-10 Last administered on 09:16; Admin Dose 50 MG; Start 09/17/16 at 12:00 Miscellaneous Information 1 ea NOTE XX ; Start 09/17/16 at 12:00 Insulin Aspart (Novolog Insulin Pen) NOVOLOG *MILD* ALGORI... Q6 SC Last administered on 09/29/16 12:25; Admin Dose 1 UNIT; Start 09/18/16 at 06:00 Miscellaneous Information 1 ea NOTE XX ; Start 09/17/16 at 22:45 Glucose (Glutose) 15 gm Q15M PRN PO DECREASED GLUCOSE; Start 09/17/16 at 22:45 Glucose (Glutose) 22.5 gm Q15M PRN PO DECREASED GLUCOSE; Start 09/17/16 at 22:45 Dextrose (D50w Syringe) 25 ml Q15M PRN IV DECREASED GLUCOSE; Start 09/17/16 at 22:45 Dextrose (D50w Syringe) 50 ml Q15M PRN IV DECREASED GLUCOSE; Start 09/17/16 at 22:45 Glucagon (Glucagen) 1 mg Q15M PRN IM DECREASED GLUCOSE; Start 09/17/16 at 22:45 Glucose (Glutose) 15 gm Q15M PRN BUCCAL DECREASED GLUCOSE; Start 09/17/16 at 22: 45 Acetaminophen (Tylenol Tab) 650 mg Q4 PRN GTB PAIN AND OR ELEVATED TEMP Last administered on 09/23/16 00:59; Admin Dose 650 MG; Start 09/18/16 at 11:30 Albuterol (Proventil 0.083% (Neb)) 2.5 mg Q3H PRN NEB WHEEZING AND SOB; Start 09/18/16 at 11:30 Ascorbic Acid (Vitamin C) 500 mg BID PO Last administered on 09/29/16 09:16; Admin Dose 500 MG; Start 09/18/16 at 21:00 Folic Acid (Folic Acid) 1 mg DAILY GTB Last administered on 09/29/16 09:16; Admin Dose 1 MG; Start 09/19/16 at 09:00 Hydroxyzine HCl (Atarax) 25 mg Q8H PRN PO ITCHING; Start 09/18/16 at 11:30 Lorazepam (Ativan) 1 mg Q8 PRN GTB ANXIETY Last administered on 09/22/16 09:17 ; Admin Dose 1 MG; Start 09/18/16 at 11:30 Magnesium Hydroxide (Milk Of Mag) 30 ml DAILY PRN GTB CONSTIPATION Last administered on 09/23/16 17:19; Admin Dose 30 ML; Start 09/18/16 at 11:30 Sodium Biphosphate/ Sodium Phosphate (Fleet Enema Pediatric) 66.6 ml DAILY PRN MD CONSTIPATION; Start 09/18/16 at 11:30 Lactobacillus Acidophilus/ Rhamnosus (Culturelle) 1 cap BID PO Last administered on 09/29/16 09:16; Admin Dose 1 CAP; Start 09/18/16 at 21:00 Insulin Aspart (Novolog Insulin Pen) 5 unit TID SC Last administered on 13:36; Admin Dose 5 UNIT; Start 09/18/16 at 13:00 Insulin Detemir (Levemir) 18 unit HS SC Last administered on 09/28/16 20:06; Admin Dose 18 UNIT; Start 09/18/16 at 21:00 Morphine Sulfate (morphine) 2 mg Q4H PRN IV PAIN LEVEL 7-10 Last administered on 09/22/16 18:57; Admin Dose 2 MG; Start 09/19/16 at 11:30 Lorazepam (Ativan) 1 mg Q6H PRN IV ANXIETY Last administered on 09/28/16 01:48 ; Admin Dose 1 MG; Start 09/19/16 at 18:30 Midodrine (Proamatine) 5 mg TID GTB Last administered on 09/29/16 12:06; Admin Dose 5 MG; Start 09/21/16 at 06:00 Ferrous Sulfate (Ferrous Sulfate (Ec)) 325 mg TID PO Last administered on 12:06; Admin Dose 325 MG; Start 09/21/16 at 10:00 Multivitamins 30 ml 30 ml DAILY GTB Last administered on 09/29/16 09:17; Admin Dose 30 ML; Start 09/21/16 at 10:30 Vancomycin HCl (Vancocin) 250 ml @ 125 mls/hr Q5D IVPB Last administered on 23:00; Admin Dose 125 MLS/HR; Start 09/21/16 at 22:00 Voriconazole (Vfend) 200 mg BID PO Last administered on 09/29/16 09:17; Admin Dose 200 MG; Start 09/23/16 at 09:30; Stop 09/30/16 at 09:29 Bacitracin (Bacitracin Oint (Ud)) 1 applic BID TOP Last administered on 09:17; Admin Dose 1 APPLIC; Start 09/23/16 at 21:00 Metoclopramide HCl 10 mg 10 mg Q6 IV Last administered on 09/29/16 12:06; Admin Dose 10 MG; Start 09/24/16 at 18:00 Norepinephrine/ Dextrose (Levophed/D5W) 500 ml @ 1.87 mls/hr TITRATE IV Last administered on 09/29/16 11:52; Admin Dose 28.12 MLS/HR; Start 09/25/16 at 07: 00; Status Future hold Lactulose (Enulose) 20 gm BID PO Last administered on 09/29/16 09:17; Admin Dose 20 GM; Start 09/25/16 at 21:00 IV Flush 10 ml 10 ml PRN PRN IV IV PROTOCOL; Start 09/25/16 at 16:00 Meropenem/Sodium Chloride 50 ml @ 200 mls/hr Q12 IVPB Last administered on 09:28; Admin Dose 200 MLS/HR; Start 09/26/16 at 21:00 Ferric Sodium Gluconate Complex/ Sodium Chloride (Ferrlecit/NS) 110 ml @ 110 mls/hr Q24H IVPB Last administered on 09/29/16 09:54; Admin Dose 110 MLS/HR; Start 09/27/16 at 09:00; Stop 10/01/16 at 09:59 Lansoprazole (Prevacid) 30 mg DAILY@06 GTB Last administered on 09/29/16 05:23 ; Admin Dose 30 MG; Start 09/28/16 at 06:00 Bumetanide (Bumex) 1 mg DAILY IV ; Start 09/30/16 at 09:00 JAIR GRANGER Sep 29, 2016 17:18
[2016-09-29] MEDS: INSULIN DETEMIR [LEVEMIR] 3ML CART SC SCH (21:10)
[2016-09-30] VITALS (103 sets, daily range): BP systolic 53–141; BP diastolic 33–117; PULSE 60–98; RESP 0–28
[2016-09-30] MEDS: ALBUTEROL 18 GM INHALER INH SCH ×6 (01:09→21:55)
[2016-09-30] MEDS: LANSOPRAZOLE 30 MG CAP GTB SCH (05:38)
[2016-09-30] MEDS: METOCLOPRAMIDE 10 MG INJ IV SCH ×3 (05:38→17:35)
[2016-09-30] MEDS: INSULIN ASPART [NOVOLOG] 3 ML PEN SC SCH ×8 (05:50→21:04)
[2016-09-30 06:59] LABS: BASOPHIL # 0.1 10^3/ul (0.0-0.1); BASOPHILS % 0.5 % (0.0-2.0); EOSINOPHILS # 0.7 10^3/ul (0.0-0.5); HEMATOCRIT 35.7 % (37.0-47.0); HEMOGLOBIN 10.6 g/dl (12.0-16.0); LYMPHOCYTES # 0.8 10^3/ul (0.8-2.9); LYMPHOCYTES % 4.4 % (15.0-51.0); MEAN CORPUSCULAR HEMOGLOBIN 28.8 pg (29.0-33.0); MEAN CORPUSCULAR HGB CONC 29.7 g/dl (32.0-37.0); MEAN PLATELET VOLUME 10.3 fl (7.4-10.4); MONOCYTE # 0.9 10^3/ul (0.3-0.9); MONOCYTES % 4.9 % (0.0-11.0); NEUTROPHILS % 85.2 % (39.0-77.0); NUCLEATED RED BLOOD CELLS # 0.1 10^3/ul (0.0-0.0); NUCLEATED RED BLOOD CELLS% 0.3 /100WBC (0.0-0.0); PLATELET COUNT 394 10^3/UL (140-415); RED BLOOD COUNT 3.68 10^6/ul (4.20-5.40); RED CELL DISTRIBUTION WIDTH 18.8 % (11.5-14.5); WHITE BLOOD COUNT 18.6 10^3/ul (4.8-10.8)
[2016-09-30 07:33] LABS: CALCIUM 9.1 mg/dl (8.4-10.2); CREATININE 0.93 mg/dl (0.44-1.00); MAGNESIUM 2.5 mg/dl (1.7-2.5); PHOSPHORUS 4.6 mg/dl (2.5-4.9)
[2016-09-30] MEDS: MULTIVITAMINS 30 ML CUP GTB SCH (08:32)
[2016-09-30] MEDS: LACTULOSE 30ML CUP PO SCH ×2 (08:32→20:57)
[2016-09-30] MEDS: CHLORHEXIDINE GLUCONATE 15 ML UD CUP MM SCH ×2 (08:32→20:57)
[2016-09-30] MEDS: MEROPENEM 500MG/50 ML (PMX) 50 ML IVPB SCH ×2 (08:32→20:58)
[2016-09-30] MEDS: traMADol 50 MG TAB GTB PRN (08:32)
[2016-09-30] MEDS: MIDODRINE 5 MG TAB GTB SCH ×3 (08:33→20:58)
[2016-09-30] MEDS: LACTOBACILLUS RHAMNOSUS CAP PO SCH ×2 (08:33→20:57)
[2016-09-30] MEDS: FOLIC ACID 1 MG TAB GTB SCH (08:33)
[2016-09-30] MEDS: AMIODARONE 200 MG TAB GTB SCH (08:33)
[2016-09-30] MEDS: FERROUS SULFATE (EC) 325 MG TAB PO SCH ×3 (08:33→20:57)
[2016-09-30] MEDS: VORICONAZOLE 200 MG TAB PO SCH (08:33)
[2016-09-30] MEDS: ASCORBIC ACID 500 MG TAB PO SCH ×2 (08:34→20:58)
[2016-09-30] MEDS: BACITRACIN 0.9 GM OINT TOP SCH ×2 (08:34→20:58)
[2016-09-30] MEDS ORDERED: BUMETANIDE 1 MG INJ IV SCH (09:00)
--- NOTE | 2016-09-30 09:02 | CONS ---
Date/Time of Note Date/Time of Note DATE: 09/30/16 TIME: 09:00 Assessment/Plan Assessment/Plan Chief Complaint/Hosp Course 50-year-old female resident of a subacute facility was PEG trach admitted with healthcare acquired pneumonia. We have an incomplete database except the patient has multiple comorbid major medical problems including muscular dystrophy morbid obesity type 2 diabetes cardiomyopathy with an EF of 30-35 per. When brought to the emergency room 100% FiO2 for sats were 100 she was diagnosed with bilateral infiltrate and admitted. Patient is a non-historian, reason to be ascertained from patient's old medical records or family members. It is noted in patient's medical records that she has altered mental status etiology unknown. Problems: Additional Assessment/Plan is always at patient's bedside. He remains hopeful that she will be able to recover fully and return to residential. She is improved although she still pressor dependent but overall cognitively improved. Consultation Date/Type/Reason Admit Date/Time Sep 15, 2016 at 01:59 Initial Consult Date Postdated note for hospital visit on 09/25/2016 Type of Consultation: Palliative care Exam/Review of Systems Vital Signs Vitals Vital Signs Date Time Temp Pulse Resp B/P Pulse Ox O2 Delivery O2 Flow Rate FiO2 09/30/16 07:22 77 24 100 30 09/30/16 05:45 80/67 09/30/16 05:15 98.9 09/29/16 20:00 Mechanical Ventilator Intake and Output 09/29/16 09/29/16 09/30/16 15:00 23:00 07:00 Intake Total 764.96 ml 404.67 ml 745 ml Output Total 395 ml 265 ml 180 ml Balance 369.96 ml 139.67 ml 565 ml Exam Neurological: C[employer] NON MEDICAL II-XII intact, nl mental status, nl speech, nl strength, other (Slow to answer questions in Upper Sorbian, follow simple commands tracks) Results Result Diagram: 09/30/1630 09/30/16 0530 Results 24 hrs Laboratory Tests Test 09/29/16 09:35 09/29/16 12:21 09/29/16 13:31 09/29/16 17:42 Bedside Glucose 204 174 208 225 H Test 09/29/16 21:06 09/29/16 23:57 09/30/16 05:30 09/30/16 05:45 Bedside Glucose 282 H 271 H 258 H White Blood Count 18.6 #H Red Blood Count 3.68 L Hemoglobin 10.6 L Hematocrit 35.7 L Mean Corpuscular Volume 97.0 Mean Corpuscular Hemoglobin 28.8 L Mean Corpuscular Hemoglobin Concent 29.7 L Red Cell Distribution Width 18.8 H Platelet Count 394 # Mean Platelet Volume 10.3 Neutrophils % 85.2 H Lymphocytes % 4.4 L Monocytes % 4.9 Eosinophils % 4.0 Basophils % 0.5 Nucleated Red Blood Cells % 0.3 H Neutrophils # (Manual) 15.9 H Lymphocytes # 0.8 Monocytes # 0.9 Eosinophils # 0.7 H Basophils # 0.1 Nucleated Red Blood Cells # 0.1 H Sodium Level 145 H Potassium Level 4.0 Chloride Level 109 Carbon Dioxide Level 18 L Anion Gap 22 #H Blood Urea Nitrogen 83 H Creatinine 0.93 Glucose Level 258 #H Calcium Level 9.1 Phosphorus Level 4.6 Magnesium Level 2.5 Ammonia 53 H Medications Medications Current Medications Ondansetron HCl (Zofran Inj) 4 mg Q6H PRN IV NAUSEA AND/OR VOMITING Last administered on 09/24/16 11:53; Admin Dose 4 MG; Start 09/15/16 at 06:30 Acetaminophen (Tylenol Tab) 650 mg Q6H PRN PO PAIN LEVEL 1-3 OR FEVER Last administered on 09/16/16 20:10; Admin Dose 650 MG; Start 09/15/16 at 06:30 Acetaminophen (Tylenol Supp) 650 mg Q6H PRN [place] PAIN LEVEL 1-3 OR FEVER; Start 09/15/16 at 06:30 Amiodarone HCl (Cordarone) 200 mg DAILY GTB Last administered on 09/30/16 08: 33; Admin Dose 200 MG; Start 09/15/16 at 09:00 Bisacodyl (Dulcolax Supp) 10 mg Q24H PRN [place] CONSTIPATION; Start 09/15/16 at 06: 30 Chlorhexidine Gluconate (Peridex) 15 ml BID MM Last administered on 09/30/16 08:32; Admin Dose 15 ML; Start 09/15/16 at 09:00 Docusate Sodium (Colace) 200 mg QHS PRN PO CONSTIPATION; Start 09/15/16 at 06:30 Lisinopril (Zestril) 2.5 mg BID GTB Last administered on 09/15/16 09:24; Admin Dose 2.5 MG; Start 09/15/16 at 09:00; Status Future Hold Epoetin Kt (Epogen (Non Esrd/Non Oncology)) 3,000 units MoWeFr@17 SC Last administered on 09/28/16 18:00; Admin Dose 3,000 UNITS; Start 09/16/16 at 17:00 Epoetin Kt (Epogen (Non Esrd/Non Oncology)) 2,000 units MoWeFr@17 SC Last administered on 09/28/16 17:59; Admin Dose 2,000 UNITS; Start 09/16/16 at 17:00 Diphenhydramine HCl (Benadryl) 25 mg Q6H PRN IV ITCHING Last administered on 20:41; Admin Dose 25 MG; Start 09/15/16 at 21:00 Tramadol HCl (Ultram) 50 mg Q6H PRN GTB PAIN LEVEL 6-10 Last administered on 08:32; Admin Dose 50 MG; Start 09/17/16 at 12:00 Miscellaneous Information 1 ea NOTE XX ; Start 09/17/16 at 12:00 Insulin Aspart (Novolog Insulin Pen) NOVOLOG *MILD* ALGORI... Q6 SC Last administered on 09/30/16 05:50; Admin Dose 3 UNIT; Start 09/18/16 at 06:00 Miscellaneous Information 1 ea NOTE XX ; Start 09/17/16 at 22:45 Glucose (Glutose) 15 gm Q15M PRN PO DECREASED GLUCOSE; Start 09/17/16 at 22:45 Glucose (Glutose) 22.5 gm Q15M PRN PO DECREASED GLUCOSE; Start 09/17/16 at 22:45 Dextrose (D50w Syringe) 25 ml Q15M PRN IV DECREASED GLUCOSE; Start 09/17/16 at 22:45 Dextrose (D50w Syringe) 50 ml Q15M PRN IV DECREASED GLUCOSE; Start 09/17/16 at 22:45 Glucagon (Glucagen) 1 mg Q15M PRN IM DECREASED GLUCOSE; Start 09/17/16 at 22:45 Glucose (Glutose) 15 gm Q15M PRN BUCCAL DECREASED GLUCOSE; Start 09/17/16 at 22: 45 Acetaminophen (Tylenol Tab) 650 mg Q4 PRN GTB PAIN AND OR ELEVATED TEMP Last administered on 09/23/16 00:59; Admin Dose 650 MG; Start 09/18/16 at 11:30 Albuterol (Proventil 0.083% (Neb)) 2.5 mg Q3H PRN NEB WHEEZING AND SOB; Start 09/18/16 at 11:30 Ascorbic Acid (Vitamin C) 500 mg BID PO Last administered on 09/30/16 08:34; Admin Dose 500 MG; Start 09/18/16 at 21:00 Folic Acid (Folic Acid) 1 mg DAILY GTB Last administered on 09/30/16 08:33; Admin Dose 1 MG; Start 09/19/16 at 09:00 Hydroxyzine HCl (Atarax) 25 mg Q8H PRN PO ITCHING; Start 09/18/16 at 11:30 Lorazepam (Ativan) 1 mg Q8 PRN GTB ANXIETY Last administered on 09/22/16 09:17 ; Admin Dose 1 MG; Start 09/18/16 at 11:30 Magnesium Hydroxide (Milk Of Mag) 30 ml DAILY PRN GTB CONSTIPATION Last administered on 09/23/16 17:19; Admin Dose 30 ML; Start 09/18/16 at 11:30 Sodium Biphosphate/ Sodium Phosphate (Fleet Enema Pediatric) 66.6 ml DAILY PRN [place] CONSTIPATION; Start 09/18/16 at 11:30 Lactobacillus Acidophilus/ Rhamnosus (Culturelle) 1 cap BID PO Last administered on 09/30/16 08:33; Admin Dose 1 CAP; Start 09/18/16 at 21:00 Insulin Aspart (Novolog Insulin Pen) 5 unit TID SC Last administered on 21:10; Admin Dose 5 UNIT; Start 09/18/16 at 13:00 Insulin Detemir (Levemir) 18 unit HS SC Last administered on 09/29/16 21:10; Admin Dose 18 UNIT; Start 09/18/16 at 21:00 Morphine Sulfate (morphine) 2 mg Q4H PRN IV PAIN LEVEL 7-10 Last administered on 09/22/16 18:57; Admin Dose 2 MG; Start 09/19/16 at 11:30 Lorazepam (Ativan) 1 mg Q6H PRN IV ANXIETY Last administered on 09/28/16 01:48 ; Admin Dose 1 MG; Start 09/19/16 at 18:30 Midodrine (Proamatine) 5 mg TID GTB Last administered on 09/30/16 08:33; Admin Dose 5 MG; Start 09/21/16 at 06:00 Ferrous Sulfate (Ferrous Sulfate (Ec)) 325 mg TID PO Last administered on 08:33; Admin Dose 325 MG; Start 09/21/16 at 10:00 Multivitamins 30 ml 30 ml DAILY GTB Last administered on 09/30/16 08:32; Admin Dose 30 ML; Start 09/21/16 at 10:30 Vancomycin HCl (Vancocin) 250 ml @ 125 mls/hr Q5D IVPB Last administered on 23:00; Admin Dose 125 MLS/HR; Start 09/21/16 at 22:00 Voriconazole (Vfend) 200 mg BID PO Last administered on 09/30/16 08:33; Admin Dose 200 MG; Start 09/23/16 at 09:30; Stop 09/30/16 at 09:29 Bacitracin (Bacitracin Oint (Ud)) 1 applic BID TOP Last administered on 08:34; Admin Dose 1 APPLIC; Start 09/23/16 at 21:00 Metoclopramide HCl 10 mg 10 mg Q6 IV Last administered on 09/30/16 05:38; Admin Dose 10 MG; Start 09/24/16 at 18:00 Norepinephrine/ Dextrose (Levophed/D5W) 500 ml @ 1.87 mls/hr TITRATE IV Last administered on 09/30/16 02:02; Admin Dose 43.12 MLS/HR; Start 09/25/16 at 07: 00; Status Future hold Lactulose (Enulose) 20 gm BID PO Last administered on 09/30/16 08:32; Admin Dose 20 GM; Start 09/25/16 at 21:00 IV Flush 10 ml 10 ml PRN PRN IV IV PROTOCOL; Start 09/25/16 at 16:00 Meropenem/Sodium Chloride 50 ml @ 200 mls/hr Q12 IVPB Last administered on 08:32; Admin Dose 200 MLS/HR; Start 09/26/16 at 21:00 Ferric Sodium Gluconate Complex/ Sodium Chloride (Ferrlecit/NS) 110 ml @ 110 mls/hr Q24H IVPB Last administered on 09/29/16 09:54; Admin Dose 110 MLS/HR; Start 09/27/16 at 09:00; Stop 10/01/16 at 09:59 Lansoprazole (Prevacid) 30 mg DAILY@06 GTB Last administered on 09/30/16 05:38 ; Admin Dose 30 MG; Start 09/28/16 at 06:00 Bumetanide (Bumex) 1 mg DAILY IV Last administered on 09/30/16 08:32; Admin Dose 1 MG; Start 09/30/16 at 09:00 GOVIND PAGE Sep 30, 2016 09:02
--- NOTE | 2016-09-30 09:35 | PN ---
Date/Time of Note Date/Time of Note DATE: 09/30/16 TIME: 09:33 Assessment/Plan VTE Prophylaxis VTE Prophylaxis Intervention: other Lines/Catheters IV Catheter Type (from Nrsg): PICC Line Central line still needed: Yes Urinary Cath still in place: Yes Reason Cath still needed: urinary retention Assessment/Plan Chief Complaint/Hosp Course 1. Oliguric acute kidney injury on top of chronic kidney disease stage IIIB/IV. Etiology of acute kidney injury secondary to sepsis and acute tubular necrosis. She is volume overloaded and has pulm edema. will diurese with close monitoring of her electrolytes 2. Chronic kidney disease, etiology multifactorial. 3. Sepsis, status post shock. The patient is currently off pressor support. Continue antibiotic therapy. Continue gentle volume expansion. Follow up cultures. 4. Mineral bone disorder. Continue to monitor calcium and phosphorus levels. 5. Metabolic acidosis secondary to acute kidney injury. The patient's last ABG was reviewed. Will continue to monitor. Will defer bicarbonate therapy. 6. Hypokalemia. Replete with potassium chloride. 7. Anemia. Monitor H and H levels. 8. Ventilatory-dependent respiratory failure. Vent settings reviewed. ABGs reviewed. Continue to monitor. 9. History of cardiomyopathy. Continue current treatment plan. 10. Dysphagia, status post percutaneous endoscopic gastrostomy. 11. Muscular dystrophy. 12. Acute on chronic congestive heart failure exacerbation. Continue current medical management. Subjective Subjective 24 Hr Interval Summary Free Text/Dictation renal follow up SUBJECTIVE DATA: Patient remains in ICU, but stable. No other events noted. No hemoptysis, hematemesis, hematochezia. discussed with family at the bedside s/p paracentesis (8600 removed) good diuresis with bumex but i/o still positive OBJECTIVE DATA: HEENT: Head is normocephalic. NECK: Supple. HEART: Regular rate. LUNGS: Diminished breath sounds at the base. ABDOMEN: Soft, nontender to palpation. No rebound or guarding. EXTREMITIES: Negative for clubbing, cyanosis. Positive edema. DERMATOLOGIC: No rashes. MUSCULOSKELETAL: No joint effusion. NEUROLOGIC: No change in exam. MEDICATIONS: Reviewed. Problems: Exam/Review of Systems Vital Signs Vitals Vital Signs Date Time Temp Pulse Resp B/P Pulse Ox O2 Delivery O2 Flow Rate FiO2 09/30/16 07:22 77 24 100 30 8/16/17 05:45 80/67 09/30/16 05:15 98.9 09/29/16 20:00 Mechanical Ventilator Intake and Output 09/29/16 09/29/16 09/30/16 15:00 23:00 07:00 Intake Total 764.96 ml 404.67 ml 745 ml Output Total 395 ml 265 ml 180 ml Balance 369.96 ml 139.67 ml 565 ml Results Result Diagram: 09/30/16 0530 09/30/16 0530 Results 24 hrs Laboratory Tests Test 09/29/16 09:35 09/29/16 12:21 09/29/16 13:31 09/29/16 17:42 Bedside Glucose 204 174 208 225 H Test 09/29/16 21:06 09/29/16 23:57 09/30/16 05:30 09/30/16 05:45 Bedside Glucose 282 H 271 H 258 H White Blood Count 18.6 #H Red Blood Count 3.68 L Hemoglobin 10.6 L Hematocrit 35.7 L Mean Corpuscular Volume 97.0 Mean Corpuscular Hemoglobin 28.8 L Mean Corpuscular Hemoglobin Concent 29.7 L Red Cell Distribution Width 18.8 H Platelet Count 394 # Mean Platelet Volume 10.3 Neutrophils % 85.2 H Lymphocytes % 4.4 L Monocytes % 4.9 Eosinophils % 4.0 Basophils % 0.5 Nucleated Red Blood Cells % 0.3 H Neutrophils # (Manual) 15.9 H Lymphocytes # 0.8 Monocytes # 0.9 Eosinophils # 0.7 H Basophils # 0.1 Nucleated Red Blood Cells # 0.1 H Sodium Level 145 H Potassium Level 4.0 Chloride Level 109 Carbon Dioxide Level 18 L Anion Gap 22 #H Blood Urea Nitrogen 83 H Creatinine 0.93 Glucose Level 258 #H Calcium Level 9.1 Phosphorus Level 4.6 Magnesium Level 2.5 Ammonia 53 H Medications Medications Current Medications Ondansetron HCl (Zofran Inj) 4 mg Q6H PRN IV NAUSEA AND/OR VOMITING Last administered on 09/24/16 11:53; Admin Dose 4 MG; Start 09/15/16 at 06:30 Acetaminophen (Tylenol Tab) 650 mg Q6H PRN PO PAIN LEVEL 1-3 OR FEVER Last administered on 09/16/16 20:10; Admin Dose 650 MG; Start 09/15/16 at 06:30 Acetaminophen (Tylenol Supp) 650 mg Q6H PRN [place] PAIN LEVEL 1-3 OR FEVER; Start 09/15/16 at 06:30 Amiodarone HCl (Cordarone) 200 mg DAILY GTB Last administered on 09/30/16 08: 33; Admin Dose 200 MG; Start 09/15/16 at 09:00 Bisacodyl (Dulcolax Supp) 10 mg Q24H PRN [place] CONSTIPATION; Start 09/15/16 at 06: 30 Chlorhexidine Gluconate (Peridex) 15 ml BID MM Last administered on 09/30/16 08:32; Admin Dose 15 ML; Start 09/15/16 at 09:00 Docusate Sodium (Colace) 200 mg QHS PRN PO CONSTIPATION; Start 09/15/16 at 06:30 Lisinopril (Zestril) 2.5 mg BID GTB Last administered on 09/15/16 09:24; Admin Dose 2.5 MG; Start 09/15/16 at 09:00; Status Future Hold Epoetin Kt (Epogen (Non Esrd/Non Oncology)) 3,000 units MoWeFr@17 SC Last administered on 09/28/16 18:00; Admin Dose 3,000 UNITS; Start 09/16/16 at 17:00 Epoetin Kt (Epogen (Non Esrd/Non Oncology)) 2,000 units MoWeFr@17 SC Last administered on 09/28/16 17:59; Admin Dose 2,000 UNITS; Start 09/16/16 at 17:00 Diphenhydramine HCl (Benadryl) 25 mg Q6H PRN IV ITCHING Last administered on 20:41; Admin Dose 25 MG; Start 09/15/16 at 21:00 Tramadol HCl (Ultram) 50 mg Q6H PRN GTB PAIN LEVEL 6-10 Last administered on 08:32; Admin Dose 50 MG; Start 09/17/16 at 12:00 Miscellaneous Information 1 ea NOTE XX ; Start 09/17/16 at 12:00 Insulin Aspart (Novolog Insulin Pen) NOVOLOG *MILD* ALGORI... Q6 SC Last administered on 09/30/16 05:50; Admin Dose 3 UNIT; Start 09/18/16 at 06:00 Miscellaneous Information 1 ea NOTE XX ; Start 09/17/16 at 22:45 Glucose (Glutose) 15 gm Q15M PRN PO DECREASED GLUCOSE; Start 09/17/16 at 22:45 Glucose (Glutose) 22.5 gm Q15M PRN PO DECREASED GLUCOSE; Start 09/17/16 at 22:45 Dextrose (D50w Syringe) 25 ml Q15M PRN IV DECREASED GLUCOSE; Start 09/17/16 at 22:45 Dextrose (D50w Syringe) 50 ml Q15M PRN IV DECREASED GLUCOSE; Start 09/17/16 at 22:45 Glucagon (Glucagen) 1 mg Q15M PRN IM DECREASED GLUCOSE; Start 09/17/16 at 22:45 Glucose (Glutose) 15 gm Q15M PRN BUCCAL DECREASED GLUCOSE; Start 09/17/16 at 22: 45 Acetaminophen (Tylenol Tab) 650 mg Q4 PRN GTB PAIN AND OR ELEVATED TEMP Last administered on 09/23/16 00:59; Admin Dose 650 MG; Start 09/18/16 at 11:30 Albuterol (Proventil 0.083% (Neb)) 2.5 mg Q3H PRN NEB WHEEZING AND SOB; Start 09/18/16 at 11:30 Ascorbic Acid (Vitamin C) 500 mg BID PO Last administered on 09/30/16 08:34; Admin Dose 500 MG; Start 09/18/16 at 21:00 Folic Acid (Folic Acid) 1 mg DAILY GTB Last administered on 09/30/16 08:33; Admin Dose 1 MG; Start 09/19/16 at 09:00 Hydroxyzine HCl (Atarax) 25 mg Q8H PRN PO ITCHING; Start 09/18/16 at 11:30 Lorazepam (Ativan) 1 mg Q8 PRN GTB ANXIETY Last administered on 09/22/16 09:17 ; Admin Dose 1 MG; Start 09/18/16 at 11:30 Magnesium Hydroxide (Milk Of Mag) 30 ml DAILY PRN GTB CONSTIPATION Last administered on 09/23/16 17:19; Admin Dose 30 ML; Start 09/18/16 at 11:30 Sodium Biphosphate/ Sodium Phosphate (Fleet Enema Pediatric) 66.6 ml DAILY PRN [place] CONSTIPATION; Start 09/18/16 at 11:30 Lactobacillus Acidophilus/ Rhamnosus (Culturelle) 1 cap BID PO Last administered on 09/30/16 08:33; Admin Dose 1 CAP; Start 09/18/16 at 21:00 Insulin Aspart (Novolog Insulin Pen) 5 unit TID SC Last administered on 21:10; Admin Dose 5 UNIT; Start 09/18/16 at 13:00 Morphine Sulfate (morphine) 2 mg Q4H PRN IV PAIN LEVEL 7-10 Last administered on 09/22/16 18:57; Admin Dose 2 MG; Start 09/19/16 at 11:30 Lorazepam (Ativan) 1 mg Q6H PRN IV ANXIETY Last administered on 09/28/16 01:48 ; Admin Dose 1 MG; Start 09/19/16 at 18:30 Midodrine (Proamatine) 5 mg TID GTB Last administered on 09/30/16 08:33; Admin Dose 5 MG; Start 09/21/16 at 06:00 Ferrous Sulfate (Ferrous Sulfate (Ec)) 325 mg TID PO Last administered on 08:33; Admin Dose 325 MG; Start 09/21/16 at 10:00 Multivitamins 30 ml 30 ml DAILY GTB Last administered on 09/30/16 08:32; Admin Dose 30 ML; Start 09/21/16 at 10:30 Vancomycin HCl (Vancocin) 250 ml @ 125 mls/hr Q5D IVPB Last administered on 23:00; Admin Dose 125 MLS/HR; Start 09/21/16 at 22:00 Bacitracin (Bacitracin Oint (Ud)) 1 applic BID TOP Last administered on 08:34; Admin Dose 1 APPLIC; Start 09/23/16 at 21:00 Metoclopramide HCl 10 mg 10 mg Q6 IV Last administered on 09/30/16 05:38; Admin Dose 10 MG; Start 09/24/16 at 18:00 Norepinephrine/ Dextrose (Levophed/D5W) 500 ml @ 1.87 mls/hr TITRATE IV Last administered on 09/30/16 02:02; Admin Dose 43.12 MLS/HR; Start 09/25/16 at 07: 00; Status Future hold Lactulose (Enulose) 20 gm BID PO Last administered on 09/30/16 08:32; Admin Dose 20 GM; Start 09/25/16 at 21:00 IV Flush 10 ml 10 ml PRN PRN IV IV PROTOCOL; Start 09/25/16 at 16:00 Meropenem/Sodium Chloride 50 ml @ 200 mls/hr Q12 IVPB Last administered on 08:32; Admin Dose 200 MLS/HR; Start 09/26/16 at 21:00 Ferric Sodium Gluconate Complex/ Sodium Chloride (Ferrlecit/NS) 110 ml @ 110 mls/hr Q24H IVPB Last administered on 09/29/16 09:54; Admin Dose 110 MLS/HR; Start 09/27/16 at 09:00; Stop 10/01/16 at 09:59 Lansoprazole (Prevacid) 30 mg DAILY@06 GTB Last administered on 09/30/16 05:38 ; Admin Dose 30 MG; Start 09/28/16 at 06:00 Bumetanide (Bumex) 1 mg DAILY IV Last administered on 09/30/16 08:32; Admin Dose 1 MG; Start 09/30/16 at 09:00 Insulin Detemir (Levemir) 30 unit HS SC ; Start 09/30/16 at 21:00 ANJEL AMADOR DO Sep 30, 2016 09:35
[2016-09-30] MEDS: SOD FERRIC GLUC COMPLX 125 MG in SOD CHLORIDE 0.9% 100 ML IVPB SCH (09:37)
[2016-09-30] MEDS ORDERED: INSULIN ASPART [NOVOLOG] 3 ML PEN SC ONE (10:00)
--- NOTE | 2016-09-30 11:18 | CONS ---
Date/Time of Note Date/Time of Note DATE: 09/30/16 TIME: 11:16 Consult Date/Type/Reason Admit Date/Time Sep 15, 2016 at 01:59 Initial Consult Date 09/18/16 Type of Consultation: Pulmonary Subjective More alert this morning. Able to communicate effectively. Continues vasopressor support. Objective Vital Signs Date Time Temp Pulse Resp B/P Pulse Ox O2 Delivery O2 Flow Rate FiO2 09/30/16 11:00 78 24 87/56 97 Mechanical Ventilator Trach Collar 09/30/16 09:34 30 09/30/16 08:00 97.9 Intake and Output 09/29/16 09/29/16 09/30/16 15:00 23:00 07:00 Intake Total 764.96 ml 404.67 ml 745 ml Output Total 395 ml 265 ml 180 ml Balance 369.96 ml 139.67 ml 565 ml Exam GENERAL: Chronically ill-appearing lady on mechanical ventilation via tracheostomy VITAL SIGNS: per chart NECK: Supple. No JVD or lymphadenopathy. CARDIAC EXAM: S1, S2. No added sounds or murmurs. CHEST: clear bilaterally, No added sounds, rales or wheezes ABDOMEN: Soft, nontender. No guarding or rebound. EXTREMITIES: No cyanosis, clubbing edema +2 NEUROLOGIC: Generalized weakness. Results/Medications Result Diagram: 09/30/16 0530 09/30/16 0530 Results 24 hrs Laboratory Tests Test 09/29/16 12:21 09/29/16 13:31 09/29/16 17:42 09/29/16 21:06 Bedside Glucose 174 208 225 H 282 H Test 09/29/16 23:57 09/30/16 05:30 09/30/16 05:45 09/30/16 09:37 Bedside Glucose 271 H 258 H 343 H White Blood Count 18.6 #H Red Blood Count 3.68 L Hemoglobin 10.6 L Hematocrit 35.7 L Mean Corpuscular Volume 97.0 Mean Corpuscular Hemoglobin 28.8 L Mean Corpuscular Hemoglobin Concent 29.7 L Red Cell Distribution Width 18.8 H Platelet Count 394 # Mean Platelet Volume 10.3 Neutrophils % 85.2 H Lymphocytes % 4.4 L Monocytes % 4.9 Eosinophils % 4.0 Basophils % 0.5 Nucleated Red Blood Cells % 0.3 H Neutrophils # (Manual) 15.9 H Lymphocytes # 0.8 Monocytes # 0.9 Eosinophils # 0.7 H Basophils # 0.1 Nucleated Red Blood Cells # 0.1 H Sodium Level 145 H Potassium Level 4.0 Chloride Level 109 Carbon Dioxide Level 18 L Anion Gap 22 #H Blood Urea Nitrogen 83 H Creatinine 0.93 Glucose Level 258 #H Calcium Level 9.1 Phosphorus Level 4.6 Magnesium Level 2.5 Ammonia 53 H Medications Current Medications Ondansetron HCl (Zofran Inj) 4 mg Q6H PRN IV NAUSEA AND/OR VOMITING Last administered on 09/24/16 11:53; Admin Dose 4 MG; Start 09/15/16 at 06:30 Acetaminophen (Tylenol Tab) 650 mg Q6H PRN PO PAIN LEVEL 1-3 OR FEVER Last administered on 09/16/16 20:10; Admin Dose 650 MG; Start 09/15/16 at 06:30 Acetaminophen (Tylenol Supp) 650 mg Q6H PRN PA PAIN LEVEL 1-3 OR FEVER; Start 09/15/16 at 06:30 Amiodarone HCl (Cordarone) 200 mg DAILY GTB Last administered on 09/30/16 08: 33; Admin Dose 200 MG; Start 09/15/16 at 09:00 Bisacodyl (Dulcolax Supp) 10 mg Q24H PRN PA CONSTIPATION; Start 09/15/16 at 06: 30 Chlorhexidine Gluconate (Peridex) 15 ml BID MM Last administered on 09/30/16 08:32; Admin Dose 15 ML; Start 09/15/16 at 09:00 Docusate Sodium (Colace) 200 mg QHS PRN PO CONSTIPATION; Start 09/15/16 at 06:30 Lisinopril (Zestril) 2.5 mg BID GTB Last administered on 09/15/16 09:24; Admin Dose 2.5 MG; Start 09/15/16 at 09:00; Status Future Hold Epoetin Kt (Epogen (Non Esrd/Non Oncology)) 3,000 units MoWeFr@17 SC Last administered on 09/28/16 18:00; Admin Dose 3,000 UNITS; Start 09/16/16 at 17:00 Epoetin Kt (Epogen (Non Esrd/Non Oncology)) 2,000 units MoWeFr@17 SC Last administered on 09/28/16 17:59; Admin Dose 2,000 UNITS; Start 09/16/16 at 17:00 Diphenhydramine HCl (Benadryl) 25 mg Q6H PRN IV ITCHING Last administered on 20:41; Admin Dose 25 MG; Start 09/15/16 at 21:00 Tramadol HCl (Ultram) 50 mg Q6H PRN GTB PAIN LEVEL 6-10 Last administered on 08:32; Admin Dose 50 MG; Start 09/17/16 at 12:00 Miscellaneous Information 1 ea NOTE XX ; Start 09/17/16 at 12:00 Insulin Aspart (Novolog Insulin Pen) NOVOLOG *MILD* ALGORI... Q6 SC Last administered on 09/30/16 05:50; Admin Dose 3 UNIT; Start 09/18/16 at 06:00 Miscellaneous Information 1 ea NOTE XX ; Start 09/17/16 at 22:45 Glucose (Glutose) 15 gm Q15M PRN PO DECREASED GLUCOSE; Start 09/17/16 at 22:45 Glucose (Glutose) 22.5 gm Q15M PRN PO DECREASED GLUCOSE; Start 09/17/16 at 22:45 Dextrose (D50w Syringe) 25 ml Q15M PRN IV DECREASED GLUCOSE; Start 09/17/16 at 22:45 Dextrose (D50w Syringe) 50 ml Q15M PRN IV DECREASED GLUCOSE; Start 09/17/16 at 22:45 Glucagon (Glucagen) 1 mg Q15M PRN IM DECREASED GLUCOSE; Start 09/17/16 at 22:45 Glucose (Glutose) 15 gm Q15M PRN BUCCAL DECREASED GLUCOSE; Start 09/17/16 at 22: 45 Acetaminophen (Tylenol Tab) 650 mg Q4 PRN GTB PAIN AND OR ELEVATED TEMP Last administered on 09/23/16 00:59; Admin Dose 650 MG; Start 09/18/16 at 11:30 Albuterol (Proventil 0.083% (Neb)) 2.5 mg Q3H PRN NEB WHEEZING AND SOB; Start 09/18/16 at 11:30 Ascorbic Acid (Vitamin C) 500 mg BID PO Last administered on 09/30/16 08:34; Admin Dose 500 MG; Start 09/18/16 at 21:00 Folic Acid (Folic Acid) 1 mg DAILY GTB Last administered on 09/30/16 08:33; Admin Dose 1 MG; Start 09/19/16 at 09:00 Hydroxyzine HCl (Atarax) 25 mg Q8H PRN PO ITCHING; Start 09/18/16 at 11:30 Lorazepam (Ativan) 1 mg Q8 PRN GTB ANXIETY Last administered on 09/22/16 09:17 ; Admin Dose 1 MG; Start 09/18/16 at 11:30 Magnesium Hydroxide (Milk Of Mag) 30 ml DAILY PRN GTB CONSTIPATION Last administered on 09/23/16 17:19; Admin Dose 30 ML; Start 09/18/16 at 11:30 Sodium Biphosphate/ Sodium Phosphate (Fleet Enema Pediatric) 66.6 ml DAILY PRN PA CONSTIPATION; Start 09/18/16 at 11:30 Lactobacillus Acidophilus/ Rhamnosus (Culturelle) 1 cap BID PO Last administered on 09/30/16 08:33; Admin Dose 1 CAP; Start 09/18/16 at 21:00 Insulin Aspart (Novolog Insulin Pen) 5 unit TID SC Last administered on 09:44; Admin Dose 5 UNIT; Start 09/18/16 at 13:00 Morphine Sulfate (morphine) 2 mg Q4H PRN IV PAIN LEVEL 7-10 Last administered on 09/22/16 18:57; Admin Dose 2 MG; Start 09/19/16 at 11:30 Lorazepam (Ativan) 1 mg Q6H PRN IV ANXIETY Last administered on 09/28/16 01:48 ; Admin Dose 1 MG; Start 09/19/16 at 18:30 Midodrine (Proamatine) 5 mg TID GTB Last administered on 09/30/16 08:33; Admin Dose 5 MG; Start 09/21/16 at 06:00 Ferrous Sulfate (Ferrous Sulfate (Ec)) 325 mg TID PO Last administered on 08:33; Admin Dose 325 MG; Start 09/21/16 at 10:00 Multivitamins 30 ml 30 ml DAILY GTB Last administered on 09/30/16 08:32; Admin Dose 30 ML; Start 09/21/16 at 10:30 Vancomycin HCl (Vancocin) 250 ml @ 125 mls/hr Q5D IVPB Last administered on 23:00; Admin Dose 125 MLS/HR; Start 09/21/16 at 22:00 Bacitracin (Bacitracin Oint (Ud)) 1 applic BID TOP Last administered on 08:34; Admin Dose 1 APPLIC; Start 09/23/16 at 21:00 Metoclopramide HCl 10 mg 10 mg Q6 IV Last administered on 09/30/16 05:38; Admin Dose 10 MG; Start 09/24/16 at 18:00 Norepinephrine/ Dextrose (Levophed/D5W) 500 ml @ 1.87 mls/hr TITRATE IV Last administered on 09/30/16 02:02; Admin Dose 43.12 MLS/HR; Start 09/25/16 at 07: 00; Status Future hold Lactulose (Enulose) 20 gm BID PO Last administered on 09/30/16 08:32; Admin Dose 20 GM; Start 09/25/16 at 21:00 IV Flush 10 ml 10 ml PRN PRN IV IV PROTOCOL; Start 09/25/16 at 16:00 Meropenem/Sodium Chloride 50 ml @ 200 mls/hr Q12 IVPB Last administered on 08:32; Admin Dose 200 MLS/HR; Start 09/26/16 at 21:00 Ferric Sodium Gluconate Complex/ Sodium Chloride (Ferrlecit/NS) 110 ml @ 110 mls/hr Q24H IVPB Last administered on 09/30/16 09:37; Admin Dose 110 MLS/HR; Start 09/27/16 at 09:00; Stop 10/01/16 at 09:59 Lansoprazole (Prevacid) 30 mg DAILY@06 GTB Last administered on 09/30/16 05:38 ; Admin Dose 30 MG; Start 09/28/16 at 06:00 Bumetanide (Bumex) 1 mg DAILY IV Last administered on 09/30/16 08:32; Admin Dose 1 MG; Start 09/30/16 at 09:00 Insulin Detemir (Levemir) 30 unit HS SC ; Start 09/30/16 at 21:00 Assessment/Plan Chief Complaint/Hosp Course Additional Assessment/Plan IMP: 1. VDRF 2. HCAP 3. CHF decreased ejection fraction but evidence of pulmonary hypertension. 4. CMY 5. Encephalopathy secondary to sepsis. Clinically improved 6. Septic shock remains vasopressor dependent 7. Mixed acidosis. 8. Anemia multifactorial 9. Significant ascites questionable SBP 10. Diabetes mellitus RECS: 1. Vent support continue current settings 2. BDs/CPT 3. Abx per ID 4. Intravenous bicarbonate as needed 5. Vasopressors keep MAP > 65. 6. ID recommendations 7. Worsening glycemic control. Likely secondary to infection. Will require increased NovoLog and Lantus. If this is unsuccessful will require insulin drip. Disposition Continue ICU care prognosis guarded. Critical care time 40 minutes. Problems: YUNIEL JACK MD, [facility] Sep 30, 2016 11:18
[2016-09-30] MEDS: morphine 2 MG INJ IV PRN (12:49)
[2016-09-30 14:46] LABS: MICROALBUMIN 21.3 mg/dL
--- NOTE | 2016-09-30 15:03 | PN ---
Date/Time of Note Date/Time of Note DATE: 09/30/16 TIME: 14:53 Assessment/Plan VTE Prophylaxis VTE Prophylaxis Intervention: SCD's Lines/Catheters IV Catheter Type (from Nrsg): PICC Line Central line still needed: Yes Urinary Cath still in place: Yes Reason Cath still needed: terminal illness/intractable pain Assessment/Plan Chief Complaint/Hosp Course Patient is a 50-year-old female with chronic trach and PEG secondary to muscular dystrophy who presents to [facility] for hypoxia and altered mental status, found to be in septic shock due to healthcare associated pneumonia. Assessment and problem list Septic shock due to healthcare associated pneumonia Healthcare associated pneumonia Vent dependent respiratory failure, chronic Cardiomyopathy with ejection fraction of 30-35% with biventricular AICD A. fib and a flutter, currently not on anticoagulation, paced UTI Chronic anoxic encephalopathy Dysphasia Diabetes Chronic kidney disease Hypertension Lower extremity quadriplegia Anemia Pulmonary hypertension Leukocytosis Diarrhea Plan -Patient's sugars are elevated, adjusted long-term and sliding scale insulin for now, will have to keep adjusting or start insulin drip if continues to be uncontrolled. Only new change is patient is now back on levo fed which is in a D5 solution. Monitor closely -Continue antibiotics per infectious disease -Pulmonology following, appreciate recommendations -Patient had titrated off pressors however after large volume paracentesis, hypotension return and patient was resumed on Levophed. Patient also on midodrine -Cardiology and nephrology also consulted, appreciate recommendations, patient on amiodarone for A. fib, is on Bumex for volume overload however may be influencing patient's blood pressure. -Monitor hemoglobin -Neurologic baseline currently More than 35 minutes was spent on this encounter. Problems: Subjective 24 Hr Interval Summary Free Text/Dictation no acute change, back to baseline mentation, still on pressors Exam/Review of Systems Vital Signs Vitals Vital Signs Date Time Temp Pulse Resp B/P Pulse Ox O2 Delivery O2 Flow Rate FiO2 09/30/16 13:15 78 24 99 30 09/30/16 12:15 91/77 09/30/16 12:00 98.1 Mechanical Ventilator Trach Collar Intake and Output 09/29/16 09/29/16 09/30/16 15:00 23:00 07:00 Intake Total 764.96 ml 404.67 ml 823.12 ml Output Total 395 ml 265 ml 305 ml Balance 369.96 ml 139.67 ml 518.12 ml Exam Physical exam General: Patient is laying in bed, bedbound and answers questions by nodding or shaking her head appropriately Mentation: Patient is alert and oriented, does not speak Head: Normocephalic atraumatic Eyes: EOMI, pupils reactive to light Neck: Supple, nontender, midline Respiratory: Coarse to auscultation bilaterally Cardiovascular: regular rate, no obvious murmurs Gastrointestinal: non-tender to palpation, bowel sounds heard. peg tube Neurological: Moves UE to command. can feel but not move LE bilaterally. Results Result Diagram: 09/30/1652909/30/16529 Results 24 hrs Laboratory Tests Test 09/29/16 17:42 09/29/16 21:06 09/29/16 23:57 09/30/16 05:30 Bedside Glucose 225 H 282 H 271 H White Blood Count 18.6 #H Red Blood Count 3.68 L Hemoglobin 10.6 L Hematocrit 35.7 L Mean Corpuscular Volume 97.0 Mean Corpuscular Hemoglobin 28.8 L Mean Corpuscular Hemoglobin Concent 29.7 L Red Cell Distribution Width 18.8 H Platelet Count 394 # Mean Platelet Volume 10.3 Neutrophils % 85.2 H Lymphocytes % 4.4 L Monocytes % 4.9 Eosinophils % 4.0 Basophils % 0.5 Nucleated Red Blood Cells % 0.3 H Neutrophils # (Manual) 15.9 H Lymphocytes # 0.8 Monocytes # 0.9 Eosinophils # 0.7 H Basophils # 0.1 Nucleated Red Blood Cells # 0.1 H Sodium Level 145 H Potassium Level 4.0 Chloride Level 109 Carbon Dioxide Level 18 L Anion Gap 22 #H Blood Urea Nitrogen 83 H Creatinine 0.93 Glucose Level 258 #H Calcium Level 9.1 Phosphorus Level 4.6 Magnesium Level 2.5 Ammonia 53 H Test 09/30/16 05:45 09/30/16 09:37 09/30/16 12:42 Bedside Glucose 258 H 343 H 331 H Medications Medications Current Medications Ondansetron HCl (Zofran Inj) 4 mg Q6H PRN IV NAUSEA AND/OR VOMITING Last administered on 09/24/16t 11:53; Admin Dose 4 MG; Start 09/15/16 at 06:30 Acetaminophen (Tylenol Tab) 650 mg Q6H PRN PO PAIN LEVEL 1-3 OR FEVER Last administered on 09/16/16 20:10; Admin Dose 650 MG; Start 09/15/16 at 06:30 Acetaminophen (Tylenol Supp) 650 mg Q6H PRN ME PAIN LEVEL 1-3 OR FEVER; Start 09/15/16 at 06:30 Amiodarone HCl (Cordarone) 200 mg DAILY GTB Last administered on 09/30/16 08: 33; Admin Dose 200 MG; Start 09/15/16 at 09:00 Bisacodyl (Dulcolax Supp) 10 mg Q24H PRN ME CONSTIPATION; Start 09/15/16 at 06: 30 Chlorhexidine Gluconate (Peridex) 15 ml BID MM Last administered on 09/30/16 08:32; Admin Dose 15 ML; Start 09/15/16 at 09:00 Docusate Sodium (Colace) 200 mg QHS PRN PO CONSTIPATION; Start 09/15/16 at 06:30 Lisinopril (Zestril) 2.5 mg BID GTB Last administered on 09/15/16 09:24; Admin Dose 2.5 MG; Start 09/15/16 at 09:00; Status Future Hold Epoetin Kt (Epogen (Non Esrd/Non Oncology)) 3,000 units MoWeFr@17 SC Last administered on 09/28/16 18:00; Admin Dose 3,000 UNITS; Start 09/16/16 at 17:00 Epoetin Kt (Epogen (Non Esrd/Non Oncology)) 2,000 units MoWeFr@17 SC Last administered on 09/28/16 17:59; Admin Dose 2,000 UNITS; Start 09/16/16 at 17:00 Diphenhydramine HCl (Benadryl) 25 mg Q6H PRN IV ITCHING Last administered on 20:41; Admin Dose 25 MG; Start 09/15/16 at 21:00 Tramadol HCl (Ultram) 50 mg Q6H PRN GTB PAIN LEVEL 6-10 Last administered on 08:32; Admin Dose 50 MG; Start 09/17/16 at 12:00 Miscellaneous Information 1 ea NOTE XX ; Start 09/17/16 at 12:00 Insulin Aspart (Novolog Insulin Pen) NOVOLOG *MILD* ALGORI... Q6 SC Last administered on 09/30/16 12:44; Admin Dose 5 UNIT; Start 09/18/16 at 06:00 Miscellaneous Information 1 ea NOTE XX ; Start 09/17/16 at 22:45 Glucose (Glutose) 15 gm Q15M PRN PO DECREASED GLUCOSE; Start 09/17/16 at 22:45 Glucose (Glutose) 22.5 gm Q15M PRN PO DECREASED GLUCOSE; Start 09/17/16 at 22:45 Dextrose (D50w Syringe) 25 ml Q15M PRN IV DECREASED GLUCOSE; Start 09/17/16 at 22:45 Dextrose (D50w Syringe) 50 ml Q15M PRN IV DECREASED GLUCOSE; Start 09/17/16 at 22:45 Glucagon (Glucagen) 1 mg Q15M PRN IM DECREASED GLUCOSE; Start 09/17/16 at 22:45 Glucose (Glutose) 15 gm Q15M PRN BUCCAL DECREASED GLUCOSE; Start 09/17/16 at 22: 45 Acetaminophen (Tylenol Tab) 650 mg Q4 PRN GTB PAIN AND OR ELEVATED TEMP Last administered on 09/23/16 00:59; Admin Dose 650 MG; Start 09/18/16 at 11:30 Albuterol (Proventil 0.083% (Neb)) 2.5 mg Q3H PRN NEB WHEEZING AND SOB; Start 09/18/16 at 11:30 Ascorbic Acid (Vitamin C) 500 mg BID PO Last administered on 09/30/16 08:34; Admin Dose 500 MG; Start 09/18/16 at 21:00 Folic Acid (Folic Acid) 1 mg DAILY GTB Last administered on 09/30/16 08:33; Admin Dose 1 MG; Start 09/19/16 at 09:00 Hydroxyzine HCl (Atarax) 25 mg Q8H PRN PO ITCHING; Start 09/18/16 at 11:30 Lorazepam (Ativan) 1 mg Q8 PRN GTB ANXIETY Last administered on 09/22/16 09:17 ; Admin Dose 1 MG; Start 09/18/16 at 11:30 Magnesium Hydroxide (Milk Of Mag) 30 ml DAILY PRN GTB CONSTIPATION Last administered on 09/23/16 17:19; Admin Dose 30 ML; Start 09/18/16 at 11:30 Sodium Biphosphate/ Sodium Phosphate (Fleet Enema Pediatric) 66.6 ml DAILY PRN ME CONSTIPATION; Start 09/18/16 at 11:30 Lactobacillus Acidophilus/ Rhamnosus (Culturelle) 1 cap BID PO Last administered on 09/30/16 08:33; Admin Dose 1 CAP; Start 09/18/16 at 21:00 Insulin Aspart (Novolog Insulin Pen) 5 unit TID SC Last administered on 12:44; Admin Dose 5 UNIT; Start 09/18/16 at 13:00 Morphine Sulfate (morphine) 2 mg Q4H PRN IV PAIN LEVEL 7-10 Last administered on 09/30/16 12:49; Admin Dose 2 MG; Start 09/19/16 at 11:30 Lorazepam (Ativan) 1 mg Q6H PRN IV ANXIETY Last administered on 09/28/16 01:48 ; Admin Dose 1 MG; Start 09/19/16 at 18:30 Midodrine (Proamatine) 5 mg TID GTB Last administered on 09/30/16 12:42; Admin Dose 5 MG; Start 09/21/16 at 06:00 Ferrous Sulfate (Ferrous Sulfate (Ec)) 325 mg TID PO Last administered on 12:42; Admin Dose 325 MG; Start 09/21/16 at 10:00 Multivitamins 30 ml 30 ml DAILY GTB Last administered on 09/30/16 08:32; Admin Dose 30 ML; Start 09/21/16 at 10:30 Vancomycin HCl (Vancocin) 250 ml @ 125 mls/hr Q5D IVPB Last administered on 23:00; Admin Dose 125 MLS/HR; Start 09/21/16 at 22:00 Bacitracin (Bacitracin Oint (Ud)) 1 applic BID TOP Last administered on 08:34; Admin Dose 1 APPLIC; Start 09/23/16 at 21:00 Metoclopramide HCl 10 mg 10 mg Q6 IV Last administered on 09/30/16 12:42; Admin Dose 10 MG; Start 09/24/16 at 18:00 Norepinephrine/ Dextrose (Levophed/D5W) 500 ml @ 1.87 mls/hr TITRATE IV Last administered on 09/30/16 13:28; Admin Dose 43.12 MLS/HR; Start 09/25/16 at 07: 00; Status Future hold Lactulose (Enulose) 20 gm BID PO Last administered on 09/30/16 08:32; Admin Dose 20 GM; Start 09/25/16 at 21:00 IV Flush 10 ml 10 ml PRN PRN IV IV PROTOCOL; Start 09/25/16 at 16:00 Meropenem/Sodium Chloride 50 ml @ 200 mls/hr Q12 IVPB Last administered on 08:32; Admin Dose 200 MLS/HR; Start 09/26/16 at 21:00 Ferric Sodium Gluconate Complex/ Sodium Chloride (Ferrlecit/NS) 110 ml @ 110 mls/hr Q24H IVPB Last administered on 09/30/16 09:37; Admin Dose 110 MLS/HR; Start 09/27/16 at 09:00; Stop 10/01/16 at 09:59 Lansoprazole (Prevacid) 30 mg DAILY@06 GTB Last administered on 09/30/16 05:38 ; Admin Dose 30 MG; Start 09/28/16 at 06:00 Bumetanide (Bumex) 1 mg DAILY IV Last administered on 09/30/16 08:32; Admin Dose 1 MG; Start 09/30/16 at 09:00 Insulin Detemir 30 unit 30 unit HS SC ; Start 09/30/16 at 21:00 Metronidazole (Flagyl 500 Mg (Pmx)) 100 ml @ 100 mls/hr Q8 IVPB ; Start at 14:30 JAIR GRANGER Sep 30, 2016 15:03
--- NOTE | 2016-09-30 15:30 | PN ---
DATE: 09/30/2016 SUBJECTIVE DATA: No events overnight. The patient is lethargic, but arousable, in no distress. She remains on Levophed drip at 22 mics per minute. Temperature 98.1, pulse 77, respirations 24, blood pressure 81/68, saturation 100 percent on vent. LABORATORY AND DIAGNOSTIC DATA: WBC 18.6, H and H 10.6 and 35.7, platelets 394. Neutrophils 85.2, BUN 83, creatinine 0.93. MICROBIOLOGY: Blood and urine culture sent on September 26 and and remain negative. INDWELLINGS: Trach, PEG, Matthew rectal tube, PICC line. ANTIMICROBIALS: Antimicrobials: Patient remains on meropenem and vancomycin. Status post voriconazole. PHYSICAL EXAMINATION: GENERAL APPEARANCE: This is a chronically ill-appearing, middle- aged woman, who is in no distress. HEENT: Head atraumatic, normocephalic. Sclerae anicteric. Buccal mucosa dry. NECK: Supple. Tracheostomy present. CHEST: Rise symmetrical. Breath sounds diminished at the bases. HEART: S1 and S2. ABDOMEN: Distended, soft. Bowel sounds hypoactive. EXTREMITIES: With with bilateral edema. SKIN: Positive for anasarca. ASSESSMENT: 1. Septic shock. Possibly hypovolemic. The patient is status post paracentesis yesterday with 8 L of fluid being removed. 2. Healthcare-associated pneumonia. 3. Acute on chronic respiratory failure. 4. Recurrent ascites, status post multiple paracentesis, previous ascites fluid cultures were negative and no evidence of SBP as per fluid cytology. 5. Status post urinary tract infection. 6. Cardiomyopathy with decompensated congestive heart failure. 7. Acute on chronic kidney disease. 8. Muscle dystrophy. PLAN: The patient remains on pressors. White blood cell count tracing up. Repeat cultures have been negative so far. The patient is status post voriconazole. We will add empiric Flagyl. Continue on current antimicrobials. Follow labs in a.m. Follow a chest x-ray. Follow recommendations of consultants. Dictated By: Anita Ingram NP /reynaldo/ /Document#: [id number]
[2016-09-30] MEDS: EPOETIN 2000 UNITS/ML INJ (NON ESRD/NON ONCOLOGY) SC SCH (17:34)
[2016-09-30] MEDS: EPOETIN 3000 UNITS/ML (NON ESRD/NON ONCOLOGY) SC SCH (17:34)
[2016-09-30] MEDS: metroNIDAZOLE 500 MG/NS (PMX) 100 ML IVPB SCH ×2 (17:35→21:01)
[2016-09-30] MEDS ORDERED: INSULIN DETEMIR [LEVEMIR] 3ML CART SC SCH (21:00)
[2016-10-01] VITALS (101 sets, daily range): BP systolic 81–110; BP diastolic 27–86; PULSE 54–91; RESP 0–26
[2016-10-01] MEDS: METOCLOPRAMIDE 10 MG INJ IV SCH ×4 (00:33→18:42)
[2016-10-01] MEDS: INSULIN ASPART [NOVOLOG] 3 ML PEN SC SCH ×9 (00:38→21:54)
[2016-10-01] MEDS: ALBUTEROL 18 GM INHALER INH SCH ×6 (01:14→21:16)
[2016-10-01 05:13] LABS: BASOPHIL # 0.1 10^3/ul (0.0-0.1); BASOPHILS % 0.7 % (0.0-2.0); EOSINOPHILS # 1.1 10^3/ul (0.0-0.5); EOSINOPHILS % 7.6 % (0.0-7.0); HEMATOCRIT 33.1 % (37.0-47.0); HEMOGLOBIN 9.7 g/dl (12.0-16.0); LYMPHOCYTES # 1.2 10^3/ul (0.8-2.9); LYMPHOCYTES % 8.1 % (15.0-51.0); MEAN CORPUSCULAR HEMOGLOBIN 28.4 pg (29.0-33.0); MEAN CORPUSCULAR HGB CONC 29.3 g/dl (32.0-37.0); MEAN CORPUSCULAR VOLUME 96.8 fl (82.0-101.0); MEAN PLATELET VOLUME 9.8 fl (7.4-10.4); NEUTROPHILS % 75.2 % (39.0-77.0); NUCLEATED RED BLOOD CELLS # 0.1 10^3/ul (0.0-0.0); NUCLEATED RED BLOOD CELLS% 0.5 /100WBC (0.0-0.0); PLATELET COUNT 370 10^3/UL (140-415); RED BLOOD COUNT 3.42 10^6/ul (4.20-5.40); RED CELL DISTRIBUTION WIDTH 19.3 % (11.5-14.5); WHITE BLOOD COUNT 14.9 10^3/ul (4.8-10.8)
[2016-10-01] MEDS: metroNIDAZOLE 500 MG/NS (PMX) 100 ML IVPB SCH ×3 (05:34→22:00)
[2016-10-01] MEDS: LANSOPRAZOLE 30 MG CAP GTB SCH (05:34)
[2016-10-01 05:39] LABS: CALCIUM 9.1 mg/dl (8.4-10.2); CREATININE 0.92 mg/dl (0.44-1.00); MAGNESIUM 2.5 mg/dl (1.7-2.5); PHOSPHORUS 4.2 mg/dl (2.5-4.9); POTASSIUM 3.8 mmol/L (3.5-5.1)
[2016-10-01] MEDS: BACITRACIN 0.9 GM OINT TOP SCH ×2 (09:15→21:00)
[2016-10-01] MEDS: LACTOBACILLUS RHAMNOSUS CAP PO SCH ×2 (09:18→21:26)
[2016-10-01] MEDS: MIDODRINE 5 MG TAB GTB SCH ×3 (09:18→21:27)
[2016-10-01] MEDS: CHLORHEXIDINE GLUCONATE 15 ML UD CUP MM SCH ×2 (09:18→21:28)
[2016-10-01] MEDS: MEROPENEM 500MG/50 ML (PMX) 50 ML IVPB SCH ×2 (09:18→21:27)
[2016-10-01] MEDS: LACTULOSE 30ML CUP PO SCH ×2 (09:19→21:26)
[2016-10-01] MEDS: MULTIVITAMINS 30 ML CUP GTB SCH (09:19)
[2016-10-01] MEDS: FERROUS SULFATE (EC) 325 MG TAB PO SCH ×3 (09:19→21:26)
[2016-10-01] MEDS: FOLIC ACID 1 MG TAB GTB SCH (09:19)
[2016-10-01] MEDS: AMIODARONE 200 MG TAB GTB SCH (09:20)
[2016-10-01] MEDS: ASCORBIC ACID 500 MG TAB PO SCH ×2 (09:20→21:26)
--- NOTE | 2016-10-01 09:21 | PN ---
Date/Time of Note Date/Time of Note DATE: 10/01/16 TIME: 09:18 Assessment/Plan VTE Prophylaxis VTE Prophylaxis Intervention: SCD's Lines/Catheters IV Catheter Type (from Nrsg): PICC Line Central line still needed: Yes Urinary Cath still in place: Yes Reason Cath still needed: terminal illness/intractable pain Assessment/Plan Chief Complaint/Hosp Course Patient is a 50-year-old female with chronic trach and PEG secondary to muscular dystrophy who presents to [facility] for hypoxia and altered mental status, found to be in septic shock due to healthcare associated pneumonia. Assessment and problem list Septic shock due to healthcare associated pneumonia Healthcare associated pneumonia Vent dependent respiratory failure, chronic Cardiomyopathy with ejection fraction of 30-35% with biventricular AICD A. fib and a flutter, currently not on anticoagulation, paced UTI Chronic anoxic encephalopathy Dysphasia Diabetes Chronic kidney disease Hypertension Lower extremity quadriplegia Anemia Pulmonary hypertension Leukocytosis Diarrhea Plan -Patient's sugars still elevated, but better controlled. q4 accuchecks with mod SSI, increase levemir once again to 40. -Continue antibiotics per infectious disease -Pulmonology following, appreciate recommendations -Patient had titrated off pressors however after large volume paracentesis, hypotension return and patient was resumed on Levophed. Patient also on midodrine. Will hold bumex today. -Cardiology and nephrology also consulted, appreciate recommendations, patient on amiodarone for A. fib, Bumex for volume overload however may be influencing patient's blood pressure. -Monitor hemoglobin -Neurologic baseline currently More than 35 minutes was spent on this encounter. Problems: Exam/Review of Systems Vital Signs Vitals Vital Signs Date Time Temp Pulse Resp B/P Pulse Ox O2 Delivery O2 Flow Rate FiO2 10/01/16 06:30 60 24 86/47 100 10/01/16 05:15 98.9 10/01/16 05:07 30 09/30/16 21:15 Mechanical Ventilator Intake and Output 09/30/16 09/30/16 10/01/16 15:00 23:00 07:00 Intake Total 1184.96 ml 802.48 ml 745 ml Output Total 630 ml 410 ml 140 ml Balance 554.96 ml 392.48 ml 605 ml Exam Physical exam General: Patient is laying in bed, bedbound and answers questions by nodding or shaking her head appropriately Mentation: Patient is alert and oriented, does not speak Head: Normocephalic atraumatic Eyes: EOMI, pupils reactive to light Neck: Supple, nontender, midline Respiratory: Coarse to auscultation bilaterally Cardiovascular: regular rate, no obvious murmurs Gastrointestinal: non-tender to palpation, bowel sounds heard. peg tube Neurological: Moves UE to command. can feel but not move LE bilaterally. Results Result Diagram: 10/01/16 0430 10/01/16 0430 Results 24 hrs Laboratory Tests Test 09/30/16 09:37 09/30/16 12:42 09/30/16 17:31 09/30/16 21:00 Bedside Glucose 343 H 331 H 313 H 305 H Test 10/01/16 00:31 10/01/16 04:30 10/01/16 05:35 10/01/16 08:14 Bedside Glucose 269 H 265 H 239 H White Blood Count 14.9 H Red Blood Count 3.42 L Hemoglobin 9.7 L Hematocrit 33.1 L Mean Corpuscular Volume 96.8 Mean Corpuscular Hemoglobin 28.4 L Mean Corpuscular Hemoglobin Concent 29.3 L Red Cell Distribution Width 19.3 H Platelet Count 370 Mean Platelet Volume 9.8 Neutrophils % 75.2 Lymphocytes % 8.1 L Monocytes % 7.0 Eosinophils % 7.6 H Basophils % 0.7 Nucleated Red Blood Cells % 0.5 H Neutrophils # (Manual) 11.2 H Lymphocytes # 1.2 Monocytes # 1.0 H Eosinophils # 1.1 H Basophils # 0.1 Nucleated Red Blood Cells # 0.1 H Sodium Level 138 Potassium Level 3.8 Chloride Level 109 Carbon Dioxide Level 16 L Anion Gap 17 H Blood Urea Nitrogen 84 H Creatinine 0.92 Glucose Level 259 H Calcium Level 9.1 Phosphorus Level 4.2 Magnesium Level 2.5 Medications Medications Current Medications Ondansetron HCl (Zofran Inj) 4 mg Q6H PRN IV NAUSEA AND/OR VOMITING Last administered on 09/24/16 11:53; Admin Dose 4 MG; Start 09/15/16 at 06:30 Acetaminophen (Tylenol Tab) 650 mg Q6H PRN PO PAIN LEVEL 1-3 OR FEVER Last administered on 09/16/16 20:10; Admin Dose 650 MG; Start 09/15/16 at 06:30 Acetaminophen (Tylenol Supp) 650 mg Q6H PRN MD PAIN LEVEL 1-3 OR FEVER; Start 09/15/16 at 06:30 Amiodarone HCl (Cordarone) 200 mg DAILY GTB Last administered on 09/30/16 08: 33; Admin Dose 200 MG; Start 09/15/16 at 09:00 Bisacodyl (Dulcolax Supp) 10 mg Q24H PRN MD CONSTIPATION; Start 09/15/16 at 06: 30 Chlorhexidine Gluconate (Peridex) 15 ml BID MM Last administered on 09/30/16 20:57; Admin Dose 15 ML; Start 09/15/16 at 09:00 Docusate Sodium (Colace) 200 mg QHS PRN PO CONSTIPATION; Start 09/15/16 at 06:30 Lisinopril (Zestril) 2.5 mg BID GTB Last administered on 09/15/16 09:24; Admin Dose 2.5 MG; Start 09/15/16 at 09:00; Status Future Hold Epoetin Kt (Epogen (Non Esrd/Non Oncology)) 3,000 units MoWeFr@17 SC Last administered on 09/30/16 17:34; Admin Dose 3,000 UNITS; Start 09/16/16 at 17:00 Epoetin Kt (Epogen (Non Esrd/Non Oncology)) 2,000 units MoWeFr@17 SC Last administered on 09/30/16 17:34; Admin Dose 2,000 UNITS; Start 09/16/16 at 17:00 Diphenhydramine HCl (Benadryl) 25 mg Q6H PRN IV ITCHING Last administered on 20:41; Admin Dose 25 MG; Start 09/15/16 at 21:00 Tramadol HCl (Ultram) 50 mg Q6H PRN GTB PAIN LEVEL 6-10 Last administered on 08:32; Admin Dose 50 MG; Start 09/17/16 at 12:00 Miscellaneous Information 1 ea NOTE XX ; Start 09/17/16 at 12:00 Miscellaneous Information 1 ea NOTE XX ; Start 09/17/16 at 22:45 Glucose (Glutose) 15 gm Q15M PRN PO DECREASED GLUCOSE; Start 09/17/16 at 22:45 Glucose (Glutose) 22.5 gm Q15M PRN PO DECREASED GLUCOSE; Start 09/17/16 at 22:45 Dextrose (D50w Syringe) 25 ml Q15M PRN IV DECREASED GLUCOSE; Start 09/17/16 at 22:45 Dextrose (D50w Syringe) 50 ml Q15M PRN IV DECREASED GLUCOSE; Start 09/17/16 at 22:45 Glucagon (Glucagen) 1 mg Q15M PRN IM DECREASED GLUCOSE; Start 09/17/16 at 22:45 Glucose (Glutose) 15 gm Q15M PRN BUCCAL DECREASED GLUCOSE; Start 09/17/16 at 22: 45 Acetaminophen (Tylenol Tab) 650 mg Q4 PRN GTB PAIN AND OR ELEVATED TEMP Last administered on 09/23/16 00:59; Admin Dose 650 MG; Start 09/18/16 at 11:30 Albuterol (Proventil 0.083% (Neb)) 2.5 mg Q3H PRN NEB WHEEZING AND SOB; Start 09/18/16 at 11:30 Ascorbic Acid (Vitamin C) 500 mg BID PO Last administered on 09/30/16 20:58; Admin Dose 500 MG; Start 09/18/16 at 21:00 Folic Acid (Folic Acid) 1 mg DAILY GTB Last administered on 09/30/16 08:33; Admin Dose 1 MG; Start 09/19/16 at 09:00 Hydroxyzine HCl (Atarax) 25 mg Q8H PRN PO ITCHING; Start 09/18/16 at 11:30 Lorazepam (Ativan) 1 mg Q8 PRN GTB ANXIETY Last administered on 09/22/16 09:17 ; Admin Dose 1 MG; Start 09/18/16 at 11:30 Magnesium Hydroxide (Milk Of Mag) 30 ml DAILY PRN GTB CONSTIPATION Last administered on 09/23/16 17:19; Admin Dose 30 ML; Start 09/18/16 at 11:30 Sodium Biphosphate/ Sodium Phosphate (Fleet Enema Pediatric) 66.6 ml DAILY PRN MD CONSTIPATION; Start 09/18/16 at 11:30 Lactobacillus Acidophilus/ Rhamnosus (Culturelle) 1 cap BID PO Last administered on 09/30/16 20:57; Admin Dose 1 CAP; Start 09/18/16 at 21:00 Insulin Aspart (Novolog Insulin Pen) 5 unit TID SC Last administered on 21:03; Admin Dose 5 UNIT; Start 09/18/16 at 13:00 Morphine Sulfate (morphine) 2 mg Q4H PRN IV PAIN LEVEL 7-10 Last administered on 09/30/16 12:49; Admin Dose 2 MG; Start 09/19/16 at 11:30 Lorazepam (Ativan) 1 mg Q6H PRN IV ANXIETY Last administered on 09/28/16 01:48 ; Admin Dose 1 MG; Start 09/19/16 at 18:30 Midodrine (Proamatine) 5 mg TID GTB Last administered on 09/30/16 20:58; Admin Dose 5 MG; Start 09/21/16 at 06:00 Ferrous Sulfate (Ferrous Sulfate (Ec)) 325 mg TID PO Last administered on 20:57; Admin Dose 325 MG; Start 09/21/16 at 10:00 Multivitamins 30 ml 30 ml DAILY GTB Last administered on 09/30/16 08:32; Admin Dose 30 ML; Start 09/21/16 at 10:30 Vancomycin HCl (Vancocin) 250 ml @ 125 mls/hr Q5D IVPB Last administered on 23:00; Admin Dose 125 MLS/HR; Start 09/21/16 at 22:00 Bacitracin (Bacitracin Oint (Ud)) 1 applic BID TOP Last administered on 20:58; Admin Dose 1 APPLIC; Start 09/23/16 at 21:00 Metoclopramide HCl 10 mg 10 mg Q6 IV Last administered on 10/01/16 05:34; Admin Dose 10 MG; Start 09/24/16 at 18:00 Norepinephrine/ Dextrose (Levophed/D5W) 500 ml @ 1.87 mls/hr TITRATE IV Last administered on 10/01/16 00:34; Admin Dose 43.12 MLS/HR; Start 09/25/16 at 07: 00; Status Future hold Lactulose (Enulose) 20 gm BID PO Last administered on 09/30/16 20:57; Admin Dose 20 GM; Start 09/25/16 at 21:00 IV Flush 10 ml 10 ml PRN PRN IV IV PROTOCOL; Start 09/25/16 at 16:00 Meropenem/Sodium Chloride 50 ml @ 200 mls/hr Q12 IVPB Last administered on 20:58; Admin Dose 200 MLS/HR; Start 09/26/16 at 21:00 Ferric Sodium Gluconate Complex/ Sodium Chloride (Ferrlecit/NS) 110 ml @ 110 mls/hr Q24H IVPB Last administered on 09/30/16 09:37; Admin Dose 110 MLS/HR; Start 09/27/16 at 09:00; Stop 10/01/16 at 09:59 Lansoprazole (Prevacid) 30 mg DAILY@06 GTB Last administered on 10/01/16 05:34 ; Admin Dose 30 MG; Start 09/28/16 at 06:00 Bumetanide (Bumex) 1 mg DAILY IV Last administered on 09/30/16 08:32; Admin Dose 1 MG; Start 09/30/16 at 09:00 Insulin Detemir 30 unit 30 unit HS SC Last administered on 09/30/16 21:02; Admin Dose 30 UNIT; Start 09/30/16 at 21:00 Metronidazole (Flagyl 500 Mg (Pmx)) 100 ml @ 100 mls/hr Q8 IVPB Last administered on 10/01/16 05:34; Admin Dose 100 MLS/HR; Start 09/30/16 at 14:30 Insulin Aspart (Novolog Insulin Pen) NOVOLOG *MODERATE* ALGORI... Q4 SC Last administered on 10/01/16 05:38; Admin Dose 8 UNIT; Start 09/30/16 at 17:00 JAIR GRANGER Oct 01, 2016 09:20
[2016-10-01] MEDS: SOD FERRIC GLUC COMPLX 125 MG in SOD CHLORIDE 0.9% 100 ML IVPB SCH (09:59)
[2016-10-01] MEDS: VASOPRESSIN 60 UNIT in DEXTROSE 5% 57 ML IV SCH ×2 (11:00→23:00)
--- NOTE | 2016-10-01 11:00 | PN ---
Date/Time of Note Date/Time of Note DATE: 10/01/16 TIME: 10:59 Assessment/Plan VTE Prophylaxis VTE Prophylaxis Intervention: other Lines/Catheters IV Catheter Type (from Nrs): PICC Line Central line still needed: Yes Urinary Cath still in place: Yes Reason Cath still needed: urinary retention Assessment/Plan Chief Complaint/Hosp Course renal follow up SUBJECTIVE DATA: Patient remains in ICU, but stable. No other events noted. No hemoptysis, hematemesis, hematochezia. discussed with family at the bedside s/p paracentesis (8600 removed) good diuresis with bumex but i/o still positive OBJECTIVE DATA: HEENT: Head is normocephalic. NECK: Supple. HEART: Regular rate. LUNGS: Diminished breath sounds at the base. ABDOMEN: Soft, nontender to palpation. No rebound or guarding. EXTREMITIES: Negative for clubbing, cyanosis. Positive edema. DERMATOLOGIC: No rashes. MUSCULOSKELETAL: No joint effusion. NEUROLOGIC: No change in exam. MEDICATIONS: Reviewed. 1. Oliguric acute kidney injury on top of chronic kidney disease stage IIIB/IV. Etiology of acute kidney injury secondary to sepsis and acute tubular necrosis. She is volume overloaded and has pulm edema. will diurese when hemodynamically stable 2. Chronic kidney disease, etiology multifactorial. 3. Sepsis, status post shock. The patient is currently off pressor support. Continue antibiotic therapy. Continue gentle volume expansion. Follow up cultures. 4. Mineral bone disorder. Continue to monitor calcium and phosphorus levels. 5. Metabolic acidosis secondary to acute kidney injury. 6. Hypokalemia. Repleted. 7. Anemia. Monitor H and H levels dc epogen 8. Ventilatory-dependent respiratory failure. Vent settings reviewed. ABGs reviewed. Continue to monitor. 9. History of cardiomyopathy. Continue current treatment plan. 10. Dysphagia, status post percutaneous endoscopic gastrostomy. 11. Muscular dystrophy. 12. Acute on chronic congestive heart failure exacerbation. Continue current medical management. Problems: Exam/Review of Systems Vital Signs Vitals Vital Signs Date Time Temp Pulse Resp B/P Pulse Ox O2 Delivery O2 Flow Rate FiO2 10/01/16 09:02 80 24 98 30 10/01/16 06:30 86/47 10/01/16 05:15 98.9 09/30/16 21:15 Mechanical Ventilator Intake and Output 09/30/16 09/30/1610/01/17 15:00 23:00 07:00 Intake Total 1184.96 ml 802.48 ml 791.87 ml Output Total 630 ml 410 ml 140 ml Balance 554.96 ml 392.48 ml 651.87 ml Results Result Diagram: 10/01/16 0430 10/01/16 0430 Results 24 hrs Laboratory Tests Test 09/30/16 12:42 09/30/16 17:31 09/30/16 21:00 10/01/16 00:31 Bedside Glucose 331 H 313 H 305 H 269 H Test 10/01/16 04:30 10/01/16 05:35 10/01/16 08:14 White Blood Count 14.9 H Red Blood Count 3.42 L Hemoglobin 9.7 L Hematocrit 33.1 L Mean Corpuscular Volume 96.8 Mean Corpuscular Hemoglobin 28.4 L Mean Corpuscular Hemoglobin Concent 29.3 L Red Cell Distribution Width 19.3 H Platelet Count 370 Mean Platelet Volume 9.8 Neutrophils % 75.2 Lymphocytes % 8.1 L Monocytes % 7.0 Eosinophils % 7.6 H Basophils % 0.7 Nucleated Red Blood Cells % 0.5 H Neutrophils # (Manual) 11.2 H Lymphocytes # 1.2 Monocytes # 1.0 H Eosinophils # 1.1 H Basophils # 0.1 Nucleated Red Blood Cells # 0.1 H Sodium Level 138 Potassium Level 3.8 Chloride Level 109 Carbon Dioxide Level 16 L Anion Gap 17 H Blood Urea Nitrogen 84 H Creatinine 0.92 Glucose Level 259 H Calcium Level 9.1 Phosphorus Level 4.2 Magnesium Level 2.5 Bedside Glucose 265 H 239 H Medications Medications Current Medications Ondansetron HCl (Zofran Inj) 4 mg Q6H PRN IV NAUSEA AND/OR VOMITING Last administered on 09/24/16 11:53; Admin Dose 4 MG; Start 09/15/16 at 06:30 Acetaminophen (Tylenol Tab) 650 mg Q6H PRN PO PAIN LEVEL 1-3 OR FEVER Last administered on 09/16/16 20:10; Admin Dose 650 MG; Start 09/15/16 at 06:30 Acetaminophen (Tylenol Supp) 650 mg Q6H PRN HI PAIN LEVEL 1-3 OR FEVER; Start 09/15/16 at 06:30 Amiodarone HCl (Cordarone) 200 mg DAILY GTB Last administered on 10/01/16 09: 20; Admin Dose 200 MG; Start 09/15/16 at 09:00 Bisacodyl (Dulcolax Supp) 10 mg Q24H PRN HI CONSTIPATION; Start 09/15/16 at 06: 30 Chlorhexidine Gluconate (Peridex) 15 ml BID MM Last administered on 10/01/16 09:18; Admin Dose 15 ML; Start 09/15/16 at 09:00 Docusate Sodium (Colace) 200 mg QHS PRN PO CONSTIPATION; Start 09/15/16 at 06:30 Lisinopril (Zestril) 2.5 mg BID GTB Last administered on 09/15/16 09:24; Admin Dose 2.5 MG; Start 09/15/16 at 09:00; Status Future Hold Epoetin Kt (Epogen (Non Esrd/Non Oncology)) 3,000 units MoWeFr@17 SC Last administered on 09/30/16 17:34; Admin Dose 3,000 UNITS; Start 09/16/16 at 17:00 Epoetin Kt (Epogen (Non Esrd/Non Oncology)) 2,000 units MoWeFr@17 SC Last administered on 09/30/16 17:34; Admin Dose 2,000 UNITS; Start 09/16/16 at 17:00 Diphenhydramine HCl (Benadryl) 25 mg Q6H PRN IV ITCHING Last administered on 20:41; Admin Dose 25 MG; Start 09/15/16 at 21:00 Tramadol HCl (Ultram) 50 mg Q6H PRN GTB PAIN LEVEL 6-10 Last administered on 08:32; Admin Dose 50 MG; Start 09/17/16 at 12:00 Miscellaneous Information 1 ea NOTE XX ; Start 09/17/16 at 12:00 Miscellaneous Information 1 ea NOTE XX ; Start 09/17/16 at 22:45 Glucose (Glutose) 15 gm Q15M PRN PO DECREASED GLUCOSE; Start 09/17/16 at 22:45 Glucose (Glutose) 22.5 gm Q15M PRN PO DECREASED GLUCOSE; Start 09/17/16 at 22:45 Dextrose (D50w Syringe) 25 ml Q15M PRN IV DECREASED GLUCOSE; Start 09/17/16 at 22:45 Dextrose (D50w Syringe) 50 ml Q15M PRN IV DECREASED GLUCOSE; Start 09/17/16 at 22:45 Glucagon (Glucagen) 1 mg Q15M PRN IM DECREASED GLUCOSE; Start 09/17/16 at 22:45 Glucose (Glutose) 15 gm Q15M PRN BUCCAL DECREASED GLUCOSE; Start 09/17/16 at 22: 45 Acetaminophen (Tylenol Tab) 650 mg Q4 PRN GTB PAIN AND OR ELEVATED TEMP Last administered on 09/23/16 00:59; Admin Dose 650 MG; Start 09/18/16 at 11:30 Albuterol (Proventil 0.083% (Neb)) 2.5 mg Q3H PRN NEB WHEEZING AND SOB; Start 09/18/16 at 11:30 Ascorbic Acid (Vitamin C) 500 mg BID PO Last administered on 10/01/16 09:20; Admin Dose 500 MG; Start 09/18/16 at 21:00 Folic Acid (Folic Acid) 1 mg DAILY GTB Last administered on 10/01/16 09:19; Admin Dose 1 MG; Start 09/19/16 at 09:00 Hydroxyzine HCl (Atarax) 25 mg Q8H PRN PO ITCHING; Start 09/18/16 at 11:30 Lorazepam (Ativan) 1 mg Q8 PRN GTB ANXIETY Last administered on 09/22/16 09:17 ; Admin Dose 1 MG; Start 09/18/16 at 11:30 Magnesium Hydroxide (Milk Of Mag) 30 ml DAILY PRN GTB CONSTIPATION Last administered on 09/23/16 17:19; Admin Dose 30 ML; Start 09/18/16 at 11:30 Sodium Biphosphate/ Sodium Phosphate (Fleet Enema Pediatric) 66.6 ml DAILY PRN HI CONSTIPATION; Start 09/18/16 at 11:30 Lactobacillus Acidophilus/ Rhamnosus (Culturelle) 1 cap BID PO Last administered on 10/01/16 09:18; Admin Dose 1 CAP; Start 09/18/16 at 21:00 Insulin Aspart (Novolog Insulin Pen) 5 unit TID SC Last administered on 08:45; Admin Dose 5 UNIT; Start 09/18/16 at 13:00 Morphine Sulfate (morphine) 2 mg Q4H PRN IV PAIN LEVEL 7-10 Last administered on 09/30/16 12:49; Admin Dose 2 MG; Start 09/19/16 at 11:30 Lorazepam (Ativan) 1 mg Q6H PRN IV ANXIETY Last administered on 09/28/16 01:48 ; Admin Dose 1 MG; Start 09/19/16 at 18:30 Midodrine (Proamatine) 5 mg TID GTB Last administered on 10/01/16 09:18; Admin Dose 5 MG; Start 09/21/16 at 06:00 Ferrous Sulfate (Ferrous Sulfate (Ec)) 325 mg TID PO Last administered on 09:19; Admin Dose 325 MG; Start 09/21/16 at 10:00 Multivitamins 30 ml 30 ml DAILY GTB Last administered on 10/01/16 09:19; Admin Dose 30 ML; Start 09/21/16 at 10:30 Vancomycin HCl (Vancocin) 250 ml @ 125 mls/hr Q5D IVPB Last administered on 23:00; Admin Dose 125 MLS/HR; Start 09/21/16 at 22:00 Bacitracin (Bacitracin Oint (Ud)) 1 applic BID TOP Last administered on 20:58; Admin Dose 1 APPLIC; Start 09/23/16 at 21:00 Metoclopramide HCl 10 mg 10 mg Q6 IV Last administered on 10/01/16 05:34; Admin Dose 10 MG; Start 09/24/16 at 18:00 Norepinephrine/ Dextrose (Levophed/D5W) 500 ml @ 1.87 mls/hr TITRATE IV Last administered on 10/01/16 09:21; Admin Dose 48.75 MLS/HR; Start 09/25/16 at 07: 00; Status Future hold Lactulose (Enulose) 20 gm BID PO Last administered on 10/01/16 09:19; Admin Dose 20 GM; Start 09/25/16 at 21:00 IV Flush 10 ml 10 ml PRN PRN IV IV PROTOCOL; Start 09/25/16 at 16:00 Meropenem/Sodium Chloride (Merrem 500mg/50 ml(Pmx)) 50 ml @ 200 mls/hr Q12 IVPB Last administered on 10/01/16 09:18; Admin Dose 200 MLS/HR; Start at 21:00 Lansoprazole (Prevacid) 30 mg DAILY@06 GTB Last administered on 10/01/16 05:34 ; Admin Dose 30 MG; Start 09/28/16 at 06:00 Bumetanide 1 mg 1 mg DAILY IV Last administered on 09/30/16 08:32; Admin Dose 1 MG; Start 09/30/16 at 09:00; Status Future Hold Metronidazole (Flagyl 500 Mg (Pmx)) 100 ml @ 100 mls/hr Q8 IVPB Last administered on 10/01/16 05:34; Admin Dose 100 MLS/HR; Start 09/30/16 at 14:30 Insulin Aspart (Novolog Insulin Pen) NOVOLOG *MODERATE* ALGORI... Q4 SC Last administered on 10/01/16 08:45; Admin Dose 6 UNIT; Start 09/30/16 at 17:00 Insulin Detemir 40 unit 40 unit HS SC ; Start 10/01/16 at 21:00 Vasopressin/ Dextrose (Vasostrict/D5W) 60 ml @ 1.2 mls/hr Q12H IV ; Start 10/01 at 11:00 ANJEL AMADOR DO Oct 01, 2016 11:00
--- NOTE | 2016-10-01 11:14 | PN ---
DATE: 10/01/2016 SUBJECTIVE DATA: No acute changes. The patient is lethargic, looks comfortable, on vent. She is on Levophed at 22 mcg per minute, afebrile. OBJECTIVE DATA: VITAL SIGNS: Temperature 98.9, pulse 80, respirations 24, blood pressure 86/47, saturation 100 on 30 FiO2. LABORATORY AND DIAGNOSTIC DATA: WBC 14.9, H and H 9.7 and 33.1, platelets 370, neutrophils 75.2. BUN 84 and creatinine 0.92. INDWELLING: Trach, PEG, Matthew, rectal tube. ANTIMICROBIALS: Meropenem, Flagyl, vancomycin. PHYSICAL EXAMINATION: GENERAL: This is a chronically ill-appearing, obese, wasted, middle-aged woman, who is lethargic, arousable, and in no distress. HEENT: Head atraumatic, normocephalic. Sclerae anicteric. Buccal mucosa dry. NECK: Obese. LUNGS: Chest rise symmetrical. Breath sounds diminished at bases with scattered crackles. HEART: S1, S2. ABDOMEN: Obese, soft, bowel sounds present. EXTREMITIES: With bilateral edema. ASSESSMENT: 1. Shock, likely multifactorial. 2. Healthcare-associated pneumonia. 3. Decompensated congestive heart failure. 4. Cardiomyopathy. 5. Diarrhea, started on empiric Flagyl. 6. Recurrent ascites, status post multiple paracentesis, last one done on September 28, with 8.3 L of fluid being removed, previous ascitic fluid cultures being negative. 7. Status post Delia glabrata urinary tract infection. 8. Diabetes. PLAN: The patient remains hemodynamically unstable. She is on broad-spectrum antibiotics, so far blood cultures have been negative and repeat urine culture on September 28 negative, ascitic fluid cultures negative as well. White blood cell count today decreased. She is being followed by multiple consultants. Overall prognosis is guarded. Dictated By: Anita Ingram NP /reynaldo/willy /Document#: [id number]
--- NOTE | 2016-10-01 11:38 | CONS ---
Date/Time of Note Date/Time of Note DATE: 10/01/16 TIME: 11:37 Consult Date/Type/Reason Admit Date/Time Sep 15, 2016 at 01:59 Initial Consult Date 09/18/16 Type of Consultation: Pulmonary Subjective Becomes hypoxic on turning. Continues vasopressor support. Objective Vital Signs Date Time Temp Pulse Resp B/P Pulse Ox O2 Delivery O2 Flow Rate FiO2 10/01/16 09:02 80 24 98 30 10/01/16 06:30 86/47 10/01/16 05:15 98.9 09/30/16 21:15 Mechanical Ventilator Intake and Output 09/30/16 09/30/16 10/01/16 15:00 23:00 07:00 Intake Total 1184.96 ml 802.48 ml 791.87 ml Output Total 630 ml 410 ml 140 ml Balance 554.96 ml 392.48 ml 651.87 ml Exam GENERAL: Chronically ill-appearing lady on mechanical ventilation via tracheostomy VITAL SIGNS: per chart NECK: Supple. No JVD or lymphadenopathy. CARDIAC EXAM: S1, S2. No added sounds or murmurs. CHEST: clear bilaterally, No added sounds, rales or wheezes ABDOMEN: Soft, nontender. No guarding or rebound. EXTREMITIES: No cyanosis, clubbing edema +2 NEUROLOGIC: Generalized weakness. Results/Medications Result Diagram: 10/01/16 0430 10/01/16 0430 Results 24 hrs Laboratory Tests Test 09/30/16 12:42 09/30/16 17:31 09/30/16 21:00 10/01/16 00:31 Bedside Glucose 331 H 313 H 305 H 269 H Test 10/01/16 04:30 10/01/16 05:35 10/01/16 08:14 White Blood Count 14.9 H Red Blood Count 3.42 L Hemoglobin 9.7 L Hematocrit 33.1 L Mean Corpuscular Volume 96.8 Mean Corpuscular Hemoglobin 28.4 L Mean Corpuscular Hemoglobin Concent 29.3 L Red Cell Distribution Width 19.3 H Platelet Count 370 Mean Platelet Volume 9.8 Neutrophils % 75.2 Lymphocytes % 8.1 L Monocytes % 7.0 Eosinophils % 7.6 H Basophils % 0.7 Nucleated Red Blood Cells % 0.5 H Neutrophils # (Manual) 11.2 H Lymphocytes # 1.2 Monocytes # 1.0 H Eosinophils # 1.1 H Basophils # 0.1 Nucleated Red Blood Cells # 0.1 H Sodium Level 138 Potassium Level 3.8 Chloride Level 109 Carbon Dioxide Level 16 L Anion Gap 17 H Blood Urea Nitrogen 84 H Creatinine 0.92 Glucose Level 259 H Calcium Level 9.1 Phosphorus Level 4.2 Magnesium Level 2.5 Bedside Glucose 265 H 239 H Medications Current Medications Ondansetron HCl (Zofran Inj) 4 mg Q6H PRN IV NAUSEA AND/OR VOMITING Last administered on 09/24/16 11:53; Admin Dose 4 MG; Start 09/15/16 at 06:30 Acetaminophen (Tylenol Tab) 650 mg Q6H PRN PO PAIN LEVEL 1-3 OR FEVER Last administered on 09/16/16 20:10; Admin Dose 650 MG; Start 09/15/16 at 06:30 Acetaminophen (Tylenol Supp) 650 mg Q6H PRN MS PAIN LEVEL 1-3 OR FEVER; Start 09/15/16 at 06:30 Amiodarone HCl (Cordarone) 200 mg DAILY GTB Last administered on 10/01/16 09: 20; Admin Dose 200 MG; Start 09/15/16 at 09:00 Bisacodyl (Dulcolax Supp) 10 mg Q24H PRN MS CONSTIPATION; Start 09/15/16 at 06: 30 Chlorhexidine Gluconate (Peridex) 15 ml BID MM Last administered on 10/01/16 09:18; Admin Dose 15 ML; Start 09/15/16 at 09:00 Docusate Sodium (Colace) 200 mg QHS PRN PO CONSTIPATION; Start 09/15/16 at 06:30 Lisinopril (Zestril) 2.5 mg BID GTB Last administered on 09/15/16 09:24; Admin Dose 2.5 MG; Start 09/15/16 at 09:00; Status Future Hold Epoetin Kt (Epogen (Non Esrd/Non Oncology)) 3,000 units MoWeFr@17 SC Last administered on 09/30/16 17:34; Admin Dose 3,000 UNITS; Start 09/16/16 at 17:00 Diphenhydramine HCl (Benadryl) 25 mg Q6H PRN IV ITCHING Last administered on 20:41; Admin Dose 25 MG; Start 09/15/16 at 21:00 Tramadol HCl (Ultram) 50 mg Q6H PRN GTB PAIN LEVEL 6-10 Last administered on 08:32; Admin Dose 50 MG; Start 09/17/16 at 12:00 Miscellaneous Information 1 ea NOTE XX ; Start 09/17/16 at 12:00 Miscellaneous Information 1 ea NOTE XX ; Start 09/17/16 at 22:45 Glucose (Glutose) 15 gm Q15M PRN PO DECREASED GLUCOSE; Start 09/17/16 at 22:45 Glucose (Glutose) 22.5 gm Q15M PRN PO DECREASED GLUCOSE; Start 09/17/16 at 22:45 Dextrose (D50w Syringe) 25 ml Q15M PRN IV DECREASED GLUCOSE; Start 09/17/16 at 22:45 Dextrose (D50w Syringe) 50 ml Q15M PRN IV DECREASED GLUCOSE; Start 09/17/16 at 22:45 Glucagon (Glucagen) 1 mg Q15M PRN IM DECREASED GLUCOSE; Start 09/17/16 at 22:45 Glucose (Glutose) 15 gm Q15M PRN BUCCAL DECREASED GLUCOSE; Start 09/17/16 at 22: 45 Acetaminophen (Tylenol Tab) 650 mg Q4 PRN GTB PAIN AND OR ELEVATED TEMP Last administered on 09/23/16 00:59; Admin Dose 650 MG; Start 09/18/16 at 11:30 Albuterol (Proventil 0.083% (Neb)) 2.5 mg Q3H PRN NEB WHEEZING AND SOB; Start 09/18/16 at 11:30 Ascorbic Acid (Vitamin C) 500 mg BID PO Last administered on 10/01/16 09:20; Admin Dose 500 MG; Start 09/18/16 at 21:00 Folic Acid (Folic Acid) 1 mg DAILY GTB Last administered on 10/01/16 09:19; Admin Dose 1 MG; Start 09/19/16 at 09:00 Hydroxyzine HCl (Atarax) 25 mg Q8H PRN PO ITCHING; Start 09/18/16 at 11:30 Lorazepam (Ativan) 1 mg Q8 PRN GTB ANXIETY Last administered on 09/22/16 09:17 ; Admin Dose 1 MG; Start 09/18/16 at 11:30 Magnesium Hydroxide (Milk Of Mag) 30 ml DAILY PRN GTB CONSTIPATION Last administered on 09/23/16 17:19; Admin Dose 30 ML; Start 09/18/16 at 11:30 Sodium Biphosphate/ Sodium Phosphate (Fleet Enema Pediatric) 66.6 ml DAILY PRN MS CONSTIPATION; Start 09/18/16 at 11:30 Lactobacillus Acidophilus/ Rhamnosus (Culturelle) 1 cap BID PO Last administered on 10/01/16 09:18; Admin Dose 1 CAP; Start 09/18/16 at 21:00 Insulin Aspart (Novolog Insulin Pen) 5 unit TID SC Last administered on 08:45; Admin Dose 5 UNIT; Start 09/18/16 at 13:00 Morphine Sulfate (morphine) 2 mg Q4H PRN IV PAIN LEVEL 7-10 Last administered on 09/30/16 12:49; Admin Dose 2 MG; Start 09/19/16 at 11:30 Lorazepam (Ativan) 1 mg Q6H PRN IV ANXIETY Last administered on 09/28/16 01:48 ; Admin Dose 1 MG; Start 09/19/16 at 18:30 Midodrine (Proamatine) 5 mg TID GTB Last administered on 10/01/16 09:18; Admin Dose 5 MG; Start 09/21/16 at 06:00 Ferrous Sulfate (Ferrous Sulfate (Ec)) 325 mg TID PO Last administered on 09:19; Admin Dose 325 MG; Start 09/21/16 at 10:00 Multivitamins 30 ml 30 ml DAILY GTB Last administered on 10/01/16 09:19; Admin Dose 30 ML; Start 09/21/16 at 10:30 Vancomycin HCl (Vancocin) 250 ml @ 125 mls/hr Q5D IVPB Last administered on 23:00; Admin Dose 125 MLS/HR; Start 09/21/16 at 22:00 Bacitracin (Bacitracin Oint (Ud)) 1 applic BID TOP Last administered on 20:58; Admin Dose 1 APPLIC; Start 09/23/16 at 21:00 Metoclopramide HCl 10 mg 10 mg Q6 IV Last administered on 10/01/16 05:34; Admin Dose 10 MG; Start 09/24/16 at 18:00 Norepinephrine/ Dextrose (Levophed/D5W) 500 ml @ 1.87 mls/hr TITRATE IV Last administered on 10/01/16 09:21; Admin Dose 48.75 MLS/HR; Start 09/25/16 at 07: 00; Status Future hold Lactulose (Enulose) 20 gm BID PO Last administered on 10/01/16 09:19; Admin Dose 20 GM; Start 09/25/16 at 21:00 IV Flush 10 ml 10 ml PRN PRN IV IV PROTOCOL; Start 09/25/16 at 16:00 Meropenem/Sodium Chloride (Merrem 500mg/50 ml(Pmx)) 50 ml @ 200 mls/hr Q12 IVPB Last administered on 10/01/16 09:18; Admin Dose 200 MLS/HR; Start at 21:00 Lansoprazole (Prevacid) 30 mg DAILY@06 GTB Last administered on 10/01/16 05:34 ; Admin Dose 30 MG; Start 09/28/16 at 06:00 Bumetanide 1 mg 1 mg DAILY IV Last administered on 09/30/16 08:32; Admin Dose 1 MG; Start 09/30/16 at 09:00; Status Future Hold Metronidazole (Flagyl 500 Mg (Pmx)) 100 ml @ 100 mls/hr Q8 IVPB Last administered on 10/01/16 05:34; Admin Dose 100 MLS/HR; Start 09/30/16 at 14:30 Insulin Aspart (Novolog Insulin Pen) NOVOLOG *MODERATE* ALGORI... Q4 SC Last administered on 10/01/16 08:45; Admin Dose 6 UNIT; Start 09/30/16 at 17:00 Insulin Detemir 40 unit 40 unit HS SC ; Start 10/01/16 at 21:00 Vasopressin/ Dextrose (Vasostrict/D5W) 60 ml @ 1.2 mls/hr Q12H IV ; Start 10/01 at 11:00 Assessment/Plan Chief Complaint/Hosp Course Chest x-ray ARDS versus pulmonary edema Chest x-ray additional Assessment/Plan IMP: 1. VDRF 2. HCAP 3. CHF decreased ejection fraction but evidence of pulmonary hypertension. 4. CMY 5. Encephalopathy secondary to sepsis. Clinically improved 6. Septic shock remains vasopressor dependent 7. Mixed acidosis. 8. Anemia multifactorial 9. Significant ascites questionable SBP 10. Diabetes mellitus RECS: 1. Vent support continue current settings 2. BDs/CPT 3. Abx per ID 4. Intravenous bicarbonate as needed 5. Vasopressors keep MAP > 65. 6. ID recommendations 7. Adjust tube feeding. May require increased insulin. Disposition Continue ICU care prognosis guarded. Critical care time 40 minutes. Problems: YUNIEL JACK MD, [facility] Oct 01, 2016 11:38
--- NOTE | 2016-10-01 13:19 | CONS ---
Date/Time of Note Date/Time of Note DATE: 10/01/16 TIME: 13:16 Assessment/Plan Assessment/Plan Chief Complaint/Hosp Course 50-year-old female resident of a subacute facility was PEG trach admitted with healthcare acquired pneumonia. We have an incomplete database except the patient has multiple comorbid major medical problems including muscular dystrophy morbid obesity type 2 diabetes cardiomyopathy with an EF of 30-35 per. When brought to the emergency room 100% FiO2 for sats were 100 she was diagnosed with bilateral infiltrate and admitted. Patient is a non-historian, reason to be ascertained from patient's old medical records or family members. It is noted in patient's medical records that she has altered mental status etiology unknown. Problems: Consultation Date/Type/Reason Admit Date/Time Sep 15, 2016 at 01:59 Initial Consult Date Postdated note for hospital visit on 09/25/2016 Type of Consultation: Palliative care 24 HR Interval Summary Free Text/Dictation Family conference was done with patient's sister and . First reviewed patient's clinical course the fact that she still on pressors and is not clinically improving. Reviewed goals of care patient's CODE STATUS quality-of- life, pain and symptom management, spokesperson for the family who is the spouse. We made it very clear that her prognosis is still extremely poor her palliative performance scale is less than 10% requiring vent support and pressor support. Additionally her mental status waxes and wanes off sedation. I did not push family to change goals of care but asked him to think about withholding cardiopulmonary resuscitation. Family members were left to discuss this amongst themselves and follow-up with us again Exam/Review of Systems Vital Signs Vitals Vital Signs Date Time Temp Pulse Resp B/P Pulse Ox O2 Delivery O2 Flow Rate FiO2 10/01/16 12:00 61 10/01/16 09:02 24 98 30 10/01/16 06:30 86/47 10/01/16 05:15 98.9 09/30/16 21:15 Mechanical Ventilator Intake and Output 09/30/16 09/30/16 10/01/16 15:00 23:00 07:00 Intake Total 1184.96 ml 802.48 ml 791.87 ml Output Total 630 ml 410 ml 140 ml Balance 554.96 ml 392.48 ml 651.87 ml Results Result Diagram: 10/01/16 0430 10/01/16 0430 Results 24 hrs Laboratory Tests Test 09/30/16 17:31 09/30/16 21:00 10/01/16 00:31 10/01/16 04:30 Bedside Glucose 313 H 305 H 269 H White Blood Count 14.9 H Red Blood Count 3.42 L Hemoglobin 9.7 L Hematocrit 33.1 L Mean Corpuscular Volume 96.8 Mean Corpuscular Hemoglobin 28.4 L Mean Corpuscular Hemoglobin Concent 29.3 L Red Cell Distribution Width 19.3 H Platelet Count 370 Mean Platelet Volume 9.8 Neutrophils % 75.2 Lymphocytes % 8.1 L Monocytes % 7.0 Eosinophils % 7.6 H Basophils % 0.7 Nucleated Red Blood Cells % 0.5 H Neutrophils # (Manual) 11.2 H Lymphocytes # 1.2 Monocytes # 1.0 H Eosinophils # 1.1 H Basophils # 0.1 Nucleated Red Blood Cells # 0.1 H Sodium Level 138 Potassium Level 3.8 Chloride Level 109 Carbon Dioxide Level 16 L Anion Gap 17 H Blood Urea Nitrogen 84 H Creatinine 0.92 Glucose Level 259 H Calcium Level 9.1 Phosphorus Level 4.2 Magnesium Level 2.5 Test 10/01/16 05:35 10/01/16 08:14 Bedside Glucose 265 H 239 H Medications Medications Current Medications Ondansetron HCl (Zofran Inj) 4 mg Q6H PRN IV NAUSEA AND/OR VOMITING Last administered on 09/24/16 11:53; Admin Dose 4 MG; Start 09/15/16 at 06:30 Acetaminophen (Tylenol Tab) 650 mg Q6H PRN PO PAIN LEVEL 1-3 OR FEVER Last administered on 09/16/16 20:10; Admin Dose 650 MG; Start 09/15/16 at 06:30 Acetaminophen (Tylenol Supp) 650 mg Q6H PRN NE PAIN LEVEL 1-3 OR FEVER; Start 09/15/16 at 06:30 Amiodarone HCl (Cordarone) 200 mg DAILY GTB Last administered on 10/01/16 09: 20; Admin Dose 200 MG; Start 09/15/16 at 09:00 Bisacodyl (Dulcolax Supp) 10 mg Q24H PRN NE CONSTIPATION; Start 09/15/16 at 06: 30 Chlorhexidine Gluconate (Peridex) 15 ml BID MM Last administered on 10/01/16 09:18; Admin Dose 15 ML; Start 09/15/16 at 09:00 Docusate Sodium (Colace) 200 mg QHS PRN PO CONSTIPATION; Start 09/15/16 at 06:30 Lisinopril (Zestril) 2.5 mg BID GTB Last administered on 09/15/16 09:24; Admin Dose 2.5 MG; Start 09/15/16 at 09:00; Status Future Hold Epoetin Kt (Epogen (Non Esrd/Non Oncology)) 3,000 units MoWeFr@17 SC Last administered on 09/30/16 17:34; Admin Dose 3,000 UNITS; Start 09/16/16 at 17:00 Diphenhydramine HCl (Benadryl) 25 mg Q6H PRN IV ITCHING Last administered on 20:41; Admin Dose 25 MG; Start 09/15/16 at 21:00 Tramadol HCl (Ultram) 50 mg Q6H PRN GTB PAIN LEVEL 6-10 Last administered on 08:32; Admin Dose 50 MG; Start 09/17/16 at 12:00 Miscellaneous Information 1 ea NOTE XX ; Start 09/17/16 at 12:00 Miscellaneous Information 1 ea NOTE XX ; Start 09/17/16 at 22:45 Glucose (Glutose) 15 gm Q15M PRN PO DECREASED GLUCOSE; Start 09/17/16 at 22:45 Glucose (Glutose) 22.5 gm Q15M PRN PO DECREASED GLUCOSE; Start 09/17/16 at 22:45 Dextrose (D50w Syringe) 25 ml Q15M PRN IV DECREASED GLUCOSE; Start 09/17/16 at 22:45 Dextrose (D50w Syringe) 50 ml Q15M PRN IV DECREASED GLUCOSE; Start 09/17/16 at 22:45 Glucagon (Glucagen) 1 mg Q15M PRN IM DECREASED GLUCOSE; Start 09/17/16 at 22:45 Glucose (Glutose) 15 gm Q15M PRN BUCCAL DECREASED GLUCOSE; Start 09/17/16 at 22: 45 Acetaminophen (Tylenol Tab) 650 mg Q4 PRN GTB PAIN AND OR ELEVATED TEMP Last administered on 09/23/16 00:59; Admin Dose 650 MG; Start 09/18/16 at 11:30 Albuterol (Proventil 0.083% (Neb)) 2.5 mg Q3H PRN NEB WHEEZING AND SOB; Start 09/18/16 at 11:30 Ascorbic Acid (Vitamin C) 500 mg BID PO Last administered on 10/01/16 09:20; Admin Dose 500 MG; Start 09/18/16 at 21:00 Folic Acid (Folic Acid) 1 mg DAILY GTB Last administered on 10/01/16 09:19; Admin Dose 1 MG; Start 09/19/16 at 09:00 Hydroxyzine HCl (Atarax) 25 mg Q8H PRN PO ITCHING; Start 09/18/16 at 11:30 Lorazepam (Ativan) 1 mg Q8 PRN GTB ANXIETY Last administered on 09/22/16 09:17 ; Admin Dose 1 MG; Start 09/18/16 at 11:30 Magnesium Hydroxide (Milk Of Mag) 30 ml DAILY PRN GTB CONSTIPATION Last administered on 09/23/16 17:19; Admin Dose 30 ML; Start 09/18/16 at 11:30 Sodium Biphosphate/ Sodium Phosphate (Fleet Enema Pediatric) 66.6 ml DAILY PRN NE CONSTIPATION; Start 09/18/16 at 11:30 Lactobacillus Acidophilus/ Rhamnosus (Culturelle) 1 cap BID PO Last administered on 10/01/16 09:18; Admin Dose 1 CAP; Start 09/18/16 at 21:00 Insulin Aspart (Novolog Insulin Pen) 5 unit TID SC Last administered on 08:45; Admin Dose 5 UNIT; Start 09/18/16 at 13:00 Morphine Sulfate (morphine) 2 mg Q4H PRN IV PAIN LEVEL 7-10 Last administered on 09/30/16 12:49; Admin Dose 2 MG; Start 09/19/16 at 11:30 Lorazepam (Ativan) 1 mg Q6H PRN IV ANXIETY Last administered on 09/28/16 01:48 ; Admin Dose 1 MG; Start 09/19/16 at 18:30 Midodrine (Proamatine) 5 mg TID GTB Last administered on 10/01/16 09:18; Admin Dose 5 MG; Start 09/21/16 at 06:00 Ferrous Sulfate (Ferrous Sulfate (Ec)) 325 mg TID PO Last administered on 09:19; Admin Dose 325 MG; Start 09/21/16 at 10:00 Multivitamins 30 ml 30 ml DAILY GTB Last administered on 10/01/16 09:19; Admin Dose 30 ML; Start 09/21/16 at 10:30 Vancomycin HCl (Vancocin) 250 ml @ 125 mls/hr Q5D IVPB Last administered on 23:00; Admin Dose 125 MLS/HR; Start 09/21/16 at 22:00 Bacitracin (Bacitracin Oint (Ud)) 1 applic BID TOP Last administered on 09:15; Admin Dose 1 APPLIC; Start 09/23/16 at 21:00 Metoclopramide HCl 10 mg 10 mg Q6 IV Last administered on 10/01/16 12:12; Admin Dose 10 MG; Start 09/24/16 at 18:00 Norepinephrine/ Dextrose (Levophed/D5W) 500 ml @ 1.87 mls/hr TITRATE IV Last administered on 10/01/16 09:21; Admin Dose 48.75 MLS/HR; Start 09/25/16 at 07: 00; Status Future hold Lactulose (Enulose) 20 gm BID PO Last administered on 10/01/16 09:19; Admin Dose 20 GM; Start 09/25/16 at 21:00 IV Flush 10 ml 10 ml PRN PRN IV IV PROTOCOL; Start 09/25/16 at 16:00 Meropenem/Sodium Chloride (Merrem 500mg/50 ml(Pmx)) 50 ml @ 200 mls/hr Q12 IVPB Last administered on 10/01/16 09:18; Admin Dose 200 MLS/HR; Start at 21:00 Lansoprazole (Prevacid) 30 mg DAILY@06 GTB Last administered on 10/01/16 05:34 ; Admin Dose 30 MG; Start 09/28/16 at 06:00 Bumetanide 1 mg 1 mg DAILY IV Last administered on 09/30/16 08:32; Admin Dose 1 MG; Start 09/30/16 at 09:00; Status Future Hold Metronidazole (Flagyl 500 Mg (Pmx)) 100 ml @ 100 mls/hr Q8 IVPB Last administered on 10/01/16 05:34; Admin Dose 100 MLS/HR; Start 09/30/16 at 14:30 Insulin Aspart (Novolog Insulin Pen) NOVOLOG *MODERATE* ALGORI... Q4 SC Last administered on 10/01/16t 08:45; Admin Dose 6 UNIT; Start 09/30/16 at 17:00 Insulin Detemir 40 unit 40 unit HS SC ; Start 10/01/16 at 21:00 Vasopressin/ Dextrose (Vasostrict/D5W) 60 ml @ 1.2 mls/hr Q12H IV ; Start 10/01 at 11:00 GOVIND PAGE Oct 01, 2016 13:19
[2016-10-01] MEDS: DIPHENHYDRAMINE 50 MG INJ IV PRN (13:56)
[2016-10-01] MEDS: INSULIN DETEMIR [LEVEMIR] 3ML CART SC SCH (21:43)
[2016-10-01] MEDS: traMADol 50 MG TAB GTB PRN (21:57)
[2016-10-01] MEDS: VANCOMYCIN 1 GM in NS 250 ML IVPB SCH (22:00)
[2016-10-02] VITALS (104 sets, daily range): BP systolic 78–111; BP diastolic 45–95; PULSE 57–90; RESP 0–28
[2016-10-02] MEDS: ALBUTEROL 18 GM INHALER INH SCH ×6 (00:17→21:52)
[2016-10-02] MEDS: INSULIN ASPART [NOVOLOG] 3 ML PEN SC SCH ×6 (01:21→20:34)
[2016-10-02] MEDS: LANSOPRAZOLE 30 MG CAP GTB SCH (05:27)
[2016-10-02] MEDS: metroNIDAZOLE 500 MG/NS (PMX) 100 ML IVPB SCH ×3 (05:27→22:17)
[2016-10-02] MEDS: METOCLOPRAMIDE 10 MG INJ IV SCH ×4 (05:27→19:00)
[2016-10-02 05:51] LABS: BASOPHIL # 0.1 10^3/ul (0.0-0.1); BASOPHILS % 0.7 % (0.0-2.0); EOSINOPHILS # 1.5 10^3/ul (0.0-0.5); HEMATOCRIT 32.7 % (37.0-47.0); HEMOGLOBIN 9.8 g/dl (12.0-16.0); LYMPHOCYTES # 1.1 10^3/ul (0.8-2.9); LYMPHOCYTES % 6.8 % (15.0-51.0); MEAN CORPUSCULAR HEMOGLOBIN 28.6 pg (29.0-33.0); MEAN CORPUSCULAR VOLUME 95.3 fl (82.0-101.0); MEAN PLATELET VOLUME 9.7 fl (7.4-10.4); MONOCYTE # 1.2 10^3/ul (0.3-0.9); MONOCYTES % 7.6 % (0.0-11.0); NEUTROPHILS % 73.1 % (39.0-77.0); NUCLEATED RED BLOOD CELLS # 0.1 10^3/ul (0.0-0.0); NUCLEATED RED BLOOD CELLS% 0.5 /100WBC (0.0-0.0); PLATELET COUNT 381 10^3/UL (140-415); RED BLOOD COUNT 3.43 10^6/ul (4.20-5.40); RED CELL DISTRIBUTION WIDTH 19.8 % (11.5-14.5); WHITE BLOOD COUNT 15.3 10^3/ul (4.8-10.8)
[2016-10-02 06:11] LABS: CALCIUM 8.8 mg/dl (8.4-10.2); CREATININE 0.88 mg/dl (0.44-1.00); MAGNESIUM 2.6 mg/dl (1.7-2.5); PHOSPHORUS 4.3 mg/dl (2.5-4.9)
--- NOTE | 2016-10-02 07:20 | CONS ---
Date/Time of Note Date/Time of Note DATE: 10/02/16 TIME: :17 Assessment/Plan Assessment/Plan Chief Complaint/Hosp Course 50-year-old female resident of a subacute facility was PEG trach admitted with healthcare acquired pneumonia. We have an incomplete database except the patient has multiple comorbid major medical problems including muscular dystrophy morbid obesity type 2 diabetes cardiomyopathy with an EF of 30-35 per. When brought to the emergency room 100% FiO2 for sats were 100 she was diagnosed with bilateral infiltrate and admitted. Patient is a non-historian, reason to be ascertained from patient's old medical records or family members. It is noted in patient's medical records that she has altered mental status etiology unknown. Problems: Additional Assessment/Plan Please refer to my prior note family conference done October 01. Patient stilling intensive care unit still vent dependent Respiratory failure Altered mental status improving History of neuromuscular disorder Trach Family especially prefers not to change patient's CODE STATUS all options been discussed with him 2 separate family conferences. Consultation Date/Type/Reason Admit Date/Time Sep 15, 2016 at 01:59 Initial Consult Date Postdated note for hospital visit on 09/25/2016 Type of Consultation: Palliative care Exam/Review of Systems Vital Signs Vitals Vital Signs Date Time Temp Pulse Resp B/P Pulse Ox O2 Delivery O2 Flow Rate FiO2 10/02/16 07:00 60 24 92/49 98 10/02/16 06:30 Mechanical Ventilator 10/02/16 05:34 30 10/02/16 04:00 98.0 Intake and Output 10/01/16 10/01/16 10/02/16 15:00 23:00 07:00 Intake Total 722.49 ml 1097.48 ml 1421.24 ml Output Total 220 ml 100 ml 115 ml Balance 502.49 ml 997.48 ml 1306.24 ml Results Result Diagram: 10/02/16 0500 10/02/16 0500 Results 24 hrs Laboratory Tests Test 10/01/16 08:14 10/01/16 13:51 10/01/16 18:29 10/01/16 21:32 Bedside Glucose 239 H 256 H 289 H 215 Test 10/02/16 01:15 10/02/16 05:00 10/02/16 05:26 Bedside Glucose 150 122 White Blood Count 15.3 H Red Blood Count 3.43 L Hemoglobin 9.8 L Hematocrit 32.7 L Mean Corpuscular Volume 95.3 Mean Corpuscular Hemoglobin 28.6 L Mean Corpuscular Hemoglobin Concent 30.0 L Red Cell Distribution Width 19.8 H Platelet Count 381 Mean Platelet Volume 9.7 Neutrophils % 73.1 Lymphocytes % 6.8 L Monocytes % 7.6 Eosinophils % 10.0 H Basophils % 0.7 Nucleated Red Blood Cells % 0.5 H Neutrophils # (Manual) 11 H Lymphocytes # 1.1 Monocytes # 1.2 H Eosinophils # 1.5 H Basophils # 0.1 Nucleated Red Blood Cells # 0.1 H Sodium Level 138 Potassium Level 4.0 Chloride Level 104 Carbon Dioxide Level 19 L Anion Gap 19 H Blood Urea Nitrogen 87 H Creatinine 0.88 Glucose Level 108 # Calcium Level 8.8 Phosphorus Level 4.3 Magnesium Level 2.6 H Medications Medications Current Medications Ondansetron HCl (Zofran Inj) 4 mg Q6H PRN IV NAUSEA AND/OR VOMITING Last administered on 09/24/16 11:53; Admin Dose 4 MG; Start 09/15/16 at 06:30 Acetaminophen (Tylenol Tab) 650 mg Q6H PRN PO PAIN LEVEL 1-3 OR FEVER Last administered on 09/16/16 20:10; Admin Dose 650 MG; Start 09/15/16 at 06:30 Acetaminophen (Tylenol Supp) 650 mg Q6H PRN [place] PAIN LEVEL 1-3 OR FEVER; Start 09/15/16 at 06:30 Amiodarone HCl (Cordarone) 200 mg DAILY GTB Last administered on 10/01/16 09: 20; Admin Dose 200 MG; Start 09/15/16 at 09:00 Bisacodyl (Dulcolax Supp) 10 mg Q24H PRN [place] CONSTIPATION; Start 09/15/16 at 06: 30 Chlorhexidine Gluconate (Peridex) 15 ml BID MM Last administered on 10/01/16 21:28; Admin Dose 15 ML; Start 09/15/16 at 09:00 Docusate Sodium (Colace) 200 mg QHS PRN PO CONSTIPATION; Start 09/15/16 at 06:30 Lisinopril (Zestril) 2.5 mg BID GTB Last administered on 09/15/16 09:24; Admin Dose 2.5 MG; Start 09/15/16 at 09:00; Status Future Hold Epoetin Kt (Epogen (Non Esrd/Non Oncology)) 3,000 units MoWeFr@17 SC Last administered on 09/30/16 17:34; Admin Dose 3,000 UNITS; Start 09/16/16 at 17:00 Diphenhydramine HCl (Benadryl) 25 mg Q6H PRN IV ITCHING Last administered on 13:56; Admin Dose 25 MG; Start 09/15/16 at 21:00 Tramadol HCl (Ultram) 50 mg Q6H PRN GTB PAIN LEVEL 6-10 Last administered on 21:57; Admin Dose 50 MG; Start 09/17/16 at 12:00 Miscellaneous Information 1 ea NOTE XX ; Start 09/17/16 at 12:00 Miscellaneous Information 1 ea NOTE XX ; Start 09/17/16 at 22:45 Glucose (Glutose) 15 gm Q15M PRN PO DECREASED GLUCOSE; Start 09/17/16 at 22:45 Glucose (Glutose) 22.5 gm Q15M PRN PO DECREASED GLUCOSE; Start 09/17/16 at 22:45 Dextrose (D50w Syringe) 25 ml Q15M PRN IV DECREASED GLUCOSE; Start 09/17/16 at 22:45 Dextrose (D50w Syringe) 50 ml Q15M PRN IV DECREASED GLUCOSE; Start 09/17/16 at 22:45 Glucagon (Glucagen) 1 mg Q15M PRN IM DECREASED GLUCOSE; Start 09/17/16 at 22:45 Glucose (Glutose) 15 gm Q15M PRN BUCCAL DECREASED GLUCOSE; Start 09/17/16 at 22: 45 Acetaminophen (Tylenol Tab) 650 mg Q4 PRN GTB PAIN AND OR ELEVATED TEMP Last administered on 09/23/16 00:59; Admin Dose 650 MG; Start 09/18/16 at 11:30 Albuterol (Proventil 0.083% (Neb)) 2.5 mg Q3H PRN NEB WHEEZING AND SOB; Start 09/18/16 at 11:30 Ascorbic Acid (Vitamin C) 500 mg BID PO Last administered on 10/01/16 21:26; Admin Dose 500 MG; Start 09/18/16 at 21:00 Folic Acid (Folic Acid) 1 mg DAILY GTB Last administered on 10/01/16 09:19; Admin Dose 1 MG; Start 09/19/16 at 09:00 Hydroxyzine HCl (Atarax) 25 mg Q8H PRN PO ITCHING; Start 09/18/16 at 11:30 Lorazepam (Ativan) 1 mg Q8 PRN GTB ANXIETY Last administered on 09/22/16 09:17 ; Admin Dose 1 MG; Start 09/18/16 at 11:30 Magnesium Hydroxide (Milk Of Mag) 30 ml DAILY PRN GTB CONSTIPATION Last administered on 09/23/16 17:19; Admin Dose 30 ML; Start 09/18/16 at 11:30 Sodium Biphosphate/ Sodium Phosphate (Fleet Enema Pediatric) 66.6 ml DAILY PRN [place] CONSTIPATION; Start 09/18/16 at 11:30 Lactobacillus Acidophilus/ Rhamnosus (Culturelle) 1 cap BID PO Last administered on 10/01/16 21:26; Admin Dose 1 CAP; Start 09/18/16 at 21:00 Insulin Aspart (Novolog Insulin Pen) 5 unit TID SC Last administered on 21:46; Admin Dose 5 UNIT; Start 09/18/16 at 13:00 Morphine Sulfate (morphine) 2 mg Q4H PRN IV PAIN LEVEL 7-10 Last administered on 09/30/16 12:49; Admin Dose 2 MG; Start 09/19/16 at 11:30 Lorazepam (Ativan) 1 mg Q6H PRN IV ANXIETY Last administered on 09/28/16 01:48 ; Admin Dose 1 MG; Start 09/19/16 at 18:30 Midodrine (Proamatine) 5 mg TID GTB Last administered on 10/01/16 21:27; Admin Dose 5 MG; Start 09/21/16 at 06:00 Ferrous Sulfate (Ferrous Sulfate (Ec)) 325 mg TID PO Last administered on 21:26; Admin Dose 325 MG; Start 09/21/16 at 10:00 Multivitamins 30 ml 30 ml DAILY GTB Last administered on 10/01/16 09:19; Admin Dose 30 ML; Start 09/21/16 at 10:30 Vancomycin HCl (Vancocin) 250 ml @ 125 mls/hr Q5D IVPB Last administered on 22:00; Admin Dose 125 MLS/HR; Start 09/21/16 at 22:00 Bacitracin (Bacitracin Oint (Ud)) 1 applic BID TOP Last administered on 21:00; Admin Dose 1 APPLIC; Start 09/23/16 at 21:00 Metoclopramide HCl 10 mg 10 mg Q6 IV Last administered on 10/02/16 05:27; Admin Dose 10 MG; Start 09/24/16 at 18:00 Norepinephrine/ Dextrose (Levophed/D5W) 500 ml @ 1.87 mls/hr TITRATE IV Last administered on 10/02/16 05:40; Admin Dose 52.5 MLS/HR; Start 09/25/16 at 07:00 ; Status Future hold Lactulose (Enulose) 20 gm BID PO Last administered on 10/01/16 21:26; Admin Dose 20 GM; Start 09/25/16 at 21:00 IV Flush 10 ml 10 ml PRN PRN IV IV PROTOCOL; Start 09/25/16 at 16:00 Meropenem/Sodium Chloride (Merrem 500mg/50 ml(Pmx)) 50 ml @ 200 mls/hr Q12 IVPB Last administered on 10/01/16 21:27; Admin Dose 200 MLS/HR; Start at 21:00 Lansoprazole (Prevacid) 30 mg DAILY@06 GTB Last administered on 10/02/16 05:27 ; Admin Dose 30 MG; Start 09/28/16 at 06:00 Bumetanide 1 mg 1 mg DAILY IV Last administered on 09/30/16 08:32; Admin Dose 1 MG; Start 09/30/16 at 09:00; Status Future Hold Metronidazole (Flagyl 500 Mg (Pmx)) 100 ml @ 100 mls/hr Q8 IVPB Last administered on 10/02/16 05:27; Admin Dose 100 MLS/HR; Start 09/30/16 at 14:30 Insulin Aspart (Novolog Insulin Pen) NOVOLOG *MODERATE* ALGORI... Q4 SC Last administered on 10/02/16 01:21; Admin Dose 2 UNIT; Start 09/30/16 at 17:00 Insulin Detemir 40 unit 40 unit HS SC Last administered on 10/01/16 21:43; Admin Dose 40 UNIT; Start 10/01/16 at 21:00 Vasopressin/ Dextrose (Vasostrict/D5W) 60 ml @ 1.2 mls/hr Q12H IV ; Start 10/01 at 11:00 GOVIND PAGE Oct 02, 2016 07:20
[2016-10-02] MEDS: ASCORBIC ACID 500 MG TAB PO SCH ×2 (09:56→20:32)
[2016-10-02] MEDS: MULTIVITAMINS 30 ML CUP GTB SCH (09:56)
[2016-10-02] MEDS: MEROPENEM 500MG/50 ML (PMX) 50 ML IVPB SCH ×2 (09:56→20:31)
[2016-10-02] MEDS: MIDODRINE 5 MG TAB GTB SCH ×3 (09:56→20:31)
[2016-10-02] MEDS: LACTOBACILLUS RHAMNOSUS CAP PO SCH ×2 (09:56→20:31)
[2016-10-02] MEDS: FOLIC ACID 1 MG TAB GTB SCH (09:56)
[2016-10-02] MEDS: LACTULOSE 30ML CUP PO SCH ×2 (09:56→20:31)
[2016-10-02] MEDS: CHLORHEXIDINE GLUCONATE 15 ML UD CUP MM SCH ×2 (09:56→20:31)
[2016-10-02] MEDS: BACITRACIN 0.9 GM OINT TOP SCH ×2 (09:57→20:32)
[2016-10-02] MEDS: FERROUS SULFATE (EC) 325 MG TAB PO SCH ×3 (09:57→20:32)
[2016-10-02] MEDS: ALBUMIN HUMAN 25% 50 ML IV SCH ×2 (10:00→17:48)
[2016-10-02] MEDS: AMIODARONE 200 MG TAB GTB SCH (10:01)
[2016-10-02] MEDS: VASOPRESSIN 60 UNIT in DEXTROSE 5% 57 ML IV SCH ×2 (11:00→23:00)
--- NOTE | 2016-10-02 11:42 | CONS ---
Date/Time of Note Date/Time of Note DATE: 10/02/16 TIME: 11:41 Consult Date/Type/Reason Admit Date/Time Sep 15, 2016 at 01:59 Initial Consult Date 09/18/16 Type of Consultation: Pulmonary Subjective No new events. Remains on mechanical ventilation and vasopressor support. Objective Vital Signs Date Time Temp Pulse Resp B/P Pulse Ox O2 Delivery O2 Flow Rate FiO2 10/02/16 08:00 60 10/02/16 07:45 24 91/46 98 10/02/16 06:30 Mechanical Ventilator 10/02/16 05:34 30 10/02/16 04:00 98.0 Intake and Output 10/01/16 10/01/16 10/02/16 14:59 22:59 06:59 Intake Total 769.36 ml 821.86 ml 1644.36 ml Output Total 230 ml 115 ml 115 ml Balance 539.36 ml 706.86 ml 1529.36 ml Exam GENERAL: Chronically ill-appearing lady on mechanical ventilation via tracheostomy VITAL SIGNS: per chart NECK: Supple. No JVD or lymphadenopathy. CARDIAC EXAM: S1, S2. No added sounds or murmurs. CHEST: clear bilaterally, No added sounds, rales or wheezes ABDOMEN: Soft, nontender. No guarding or rebound. EXTREMITIES: No cyanosis, clubbing edema +2 NEUROLOGIC: Generalized weakness. Results/Medications Result Diagram: 10/02/16 0500 10/02/16 0500 Results 24 hrs Laboratory Tests Test 10/01/16 13:51 10/01/16 18:29 10/01/16 21:32 10/02/16 01:15 Bedside Glucose 256 H 289 H 215 150 Test 10/02/16 05:00 10/02/16 05:26 10/02/16 08:39 White Blood Count 15.3 H Red Blood Count 3.43 L Hemoglobin 9.8 L Hematocrit 32.7 L Mean Corpuscular Volume 95.3 Mean Corpuscular Hemoglobin 28.6 L Mean Corpuscular Hemoglobin Concent 30.0 L Red Cell Distribution Width 19.8 H Platelet Count 381 Mean Platelet Volume 9.7 Neutrophils % 73.1 Lymphocytes % 6.8 L Monocytes % 7.6 Eosinophils % 10.0 H Basophils % 0.7 Nucleated Red Blood Cells % 0.5 H Neutrophils # (Manual) 11 H Lymphocytes # 1.1 Monocytes # 1.2 H Eosinophils # 1.5 H Basophils # 0.1 Nucleated Red Blood Cells # 0.1 H Sodium Level 138 Potassium Level 4.0 Chloride Level 104 Carbon Dioxide Level 19 L Anion Gap 19 H Blood Urea Nitrogen 87 H Creatinine 0.88 Glucose Level 108 # Calcium Level 8.8 Phosphorus Level 4.3 Magnesium Level 2.6 H Bedside Glucose 122 95 Medications Current Medications Ondansetron HCl (Zofran Inj) 4 mg Q6H PRN IV NAUSEA AND/OR VOMITING Last administered on 09/24/16 11:53; Admin Dose 4 MG; Start 09/15/16 at 06:30 Acetaminophen (Tylenol Tab) 650 mg Q6H PRN PO PAIN LEVEL 1-3 OR FEVER Last administered on 09/16/16 20:10; Admin Dose 650 MG; Start 09/15/16 at 06:30 Acetaminophen (Tylenol Supp) 650 mg Q6H PRN [place] PAIN LEVEL 1-3 OR FEVER; Start 09/15/16 at 06:30 Amiodarone HCl (Cordarone) 200 mg DAILY GTB Last administered on 10/02/16 10: 01; Admin Dose 200 MG; Start 09/15/16 at 09:00 Bisacodyl (Dulcolax Supp) 10 mg Q24H PRN [place] CONSTIPATION; Start 09/15/16 at 06: 30 Chlorhexidine Gluconate (Peridex) 15 ml BID MM Last administered on 10/02/16 09:56; Admin Dose 15 ML; Start 09/15/16 at 09:00 Docusate Sodium (Colace) 200 mg QHS PRN PO CONSTIPATION; Start 09/15/16 at 06:30 Lisinopril (Zestril) 2.5 mg BID GTB Last administered on 09/15/16 09:24; Admin Dose 2.5 MG; Start 09/15/16 at 09:00; Status Future Hold Epoetin Kt (Epogen (Non Esrd/Non Oncology)) 3,000 units MoWeFr@17 SC Last administered on 09/30/16 17:34; Admin Dose 3,000 UNITS; Start 09/16/16 at 17:00 Diphenhydramine HCl (Benadryl) 25 mg Q6H PRN IV ITCHING Last administered on 13:56; Admin Dose 25 MG; Start 09/15/16 at 21:00 Tramadol HCl (Ultram) 50 mg Q6H PRN GTB PAIN LEVEL 6-10 Last administered on 21:57; Admin Dose 50 MG; Start 09/17/16 at 12:00 Miscellaneous Information 1 ea NOTE XX ; Start 09/17/16 at 12:00 Miscellaneous Information 1 ea NOTE XX ; Start 09/17/16 at 22:45 Glucose (Glutose) 15 gm Q15M PRN PO DECREASED GLUCOSE; Start 09/17/16 at 22:45 Glucose (Glutose) 22.5 gm Q15M PRN PO DECREASED GLUCOSE; Start 09/17/16 at 22:45 Dextrose (D50w Syringe) 25 ml Q15M PRN IV DECREASED GLUCOSE; Start 09/17/16 at 22:45 Dextrose (D50w Syringe) 50 ml Q15M PRN IV DECREASED GLUCOSE; Start 09/17/16 at 22:45 Glucagon (Glucagen) 1 mg Q15M PRN IM DECREASED GLUCOSE; Start 09/17/16 at 22:45 Glucose (Glutose) 15 gm Q15M PRN BUCCAL DECREASED GLUCOSE; Start 09/17/16 at 22: 45 Acetaminophen (Tylenol Tab) 650 mg Q4 PRN GTB PAIN AND OR ELEVATED TEMP Last administered on 09/23/16 00:59; Admin Dose 650 MG; Start 09/18/16 at 11:30 Albuterol (Proventil 0.083% (Neb)) 2.5 mg Q3H PRN NEB WHEEZING AND SOB; Start 09/18/16 at 11:30 Ascorbic Acid (Vitamin C) 500 mg BID PO Last administered on 10/02/16 09:56; Admin Dose 500 MG; Start 09/18/16 at 21:00 Folic Acid (Folic Acid) 1 mg DAILY GTB Last administered on 10/02/16 09:56; Admin Dose 1 MG; Start 09/19/16 at 09:00 Hydroxyzine HCl (Atarax) 25 mg Q8H PRN PO ITCHING; Start 09/18/16 at 11:30 Lorazepam (Ativan) 1 mg Q8 PRN GTB ANXIETY Last administered on 09/22/16 09:17 ; Admin Dose 1 MG; Start 09/18/16 at 11:30 Magnesium Hydroxide (Milk Of Mag) 30 ml DAILY PRN GTB CONSTIPATION Last administered on 09/23/16 17:19; Admin Dose 30 ML; Start 09/18/16 at 11:30 Sodium Biphosphate/ Sodium Phosphate (Fleet Enema Pediatric) 66.6 ml DAILY PRN [place] CONSTIPATION; Start 09/18/16 at 11:30 Lactobacillus Acidophilus/ Rhamnosus (Culturelle) 1 cap BID PO Last administered on 10/02/16 09:56; Admin Dose 1 CAP; Start 09/18/16 at 21:00 Morphine Sulfate (morphine) 2 mg Q4H PRN IV PAIN LEVEL 7-10 Last administered on 09/30/16 12:49; Admin Dose 2 MG; Start 09/19/16 at 11:30 Lorazepam (Ativan) 1 mg Q6H PRN IV ANXIETY Last administered on 09/28/16 01:48 ; Admin Dose 1 MG; Start 09/19/16 at 18:30 Midodrine (Proamatine) 5 mg TID GTB Last administered on 10/02/16 09:56; Admin Dose 5 MG; Start 09/21/16 at 06:00 Ferrous Sulfate (Ferrous Sulfate (Ec)) 325 mg TID PO Last administered on 09:57; Admin Dose 325 MG; Start 09/21/16 at 10:00 Multivitamins 30 ml 30 ml DAILY GTB Last administered on 10/02/16 09:56; Admin Dose 30 ML; Start 09/21/16 at 10:30 Vancomycin HCl (Vancocin) 250 ml @ 125 mls/hr Q5D IVPB Last administered on 22:00; Admin Dose 125 MLS/HR; Start 09/21/16 at 22:00 Bacitracin (Bacitracin Oint (Ud)) 1 applic BID TOP Last administered on 21:00; Admin Dose 1 APPLIC; Start 09/23/16 at 21:00 Metoclopramide HCl 10 mg 10 mg Q6 IV Last administered on 10/02/16 05:27; Admin Dose 10 MG; Start 09/24/16 at 18:00 Norepinephrine/ Dextrose (Levophed/D5W) 500 ml @ 1.87 mls/hr TITRATE IV Last administered on 10/02/16 05:40; Admin Dose 52.5 MLS/HR; Start 09/25/16 at 07:00 ; Status Future hold Lactulose (Enulose) 20 gm BID PO Last administered on 10/02/16 09:56; Admin Dose 20 GM; Start 09/25/16 at 21:00 IV Flush 10 ml 10 ml PRN PRN IV IV PROTOCOL; Start 09/25/16 at 16:00 Meropenem/Sodium Chloride (Merrem 500mg/50 ml(Pmx)) 50 ml @ 200 mls/hr Q12 IVPB Last administered on 10/02/16 09:56; Admin Dose 200 MLS/HR; Start at 21:00 Lansoprazole (Prevacid) 30 mg DAILY@06 GTB Last administered on 10/02/16 05:27 ; Admin Dose 30 MG; Start 09/28/16 at 06:00 Bumetanide 1 mg 1 mg DAILY IV Last administered on 09/30/16 08:32; Admin Dose 1 MG; Start 09/30/16 at 09:00; Status Future Hold Metronidazole (Flagyl 500 Mg (Pmx)) 100 ml @ 100 mls/hr Q8 IVPB Last administered on 10/02/16 05:27; Admin Dose 100 MLS/HR; Start 09/30/16 at 14:30 Insulin Aspart (Novolog Insulin Pen) NOVOLOG *MODERATE* ALGORI... Q4 SC Last administered on 10/02/16 01:21; Admin Dose 2 UNIT; Start 09/30/16 at 17:00 Insulin Detemir 40 unit 40 unit HS SC Last administered on 10/01/16 21:43; Admin Dose 40 UNIT; Start 10/01/16 at 21:00 Vasopressin 60 unit/Dextrose 60 ml @ 1.2 mls/hr Q12H IV ; Start 10/01/16 at 11: 00 Albumin Human (Albumin Human 25%) 50 ml @ 100 mls/hr Q8H IV Last administered on 10/02/16 10:00; Admin Dose 100 MLS/HR; Start 10/02/16 at 09:00; Stop at 01:29 Assessment/Plan Chief Complaint/Hosp Course Chest x-ray ARDS versus pulmonary edema Chest x-ray additional Assessment/Plan IMP: 1. VDRF 2. HCAP 3. CHF decreased ejection fraction but evidence of pulmonary hypertension. 4. CMY 5. Encephalopathy secondary to sepsis. Clinically improved 6. Septic shock remains vasopressor dependent 7. Mixed acidosis. 8. Anemia multifactorial 9. Significant ascites questionable SBP 10. Diabetes mellitus RECS: 1. Vent support continue current settings 2. BDs/CPT 3. Abx per ID 4. Intravenous bicarbonate as needed 5. Vasopressors keep MAP > 65. Trial of albumin. 6. ID recommendations 7. Adjust tube feeding. May require increased insulin. Disposition Continue ICU care prognosis guarded. Critical care time 40 minutes. Problems: YUNIEL JACK MD, [facility] Oct 02, 2016 11:42
--- NOTE | 2016-10-02 13:35 | PN ---
Date/Time of Note Date/Time of Note DATE: 10/02/16 TIME: 13:35 Assessment/Plan VTE Prophylaxis VTE Prophylaxis Intervention: other Lines/Catheters IV Catheter Type (from Nrs): PICC Line Central line still needed: Yes Urinary Cath still in place: Yes Reason Cath still needed: urinary retention Assessment/Plan Chief Complaint/Hosp Course renal follow up SUBJECTIVE DATA: Patient remains in ICU, but stable. No other events noted. No hemoptysis, hematemesis, hematochezia. discussed with family at the bedside s/p paracentesis ([id number] removed) good diuresis with bumex but i/o still positive OBJECTIVE DATA: HEENT: Head is normocephalic. NECK: Supple. HEART: Regular rate. LUNGS: Diminished breath sounds at the base. ABDOMEN: Soft, nontender to palpation. No rebound or guarding. EXTREMITIES: Negative for clubbing, cyanosis. Positive edema. DERMATOLOGIC: No rashes. MUSCULOSKELETAL: No joint effusion. NEUROLOGIC: No change in exam. MEDICATIONS: Reviewed. 1. Oliguric acute kidney injury on top of chronic kidney disease stage IIIB/IV. Etiology of acute kidney injury secondary to sepsis and acute tubular necrosis. She is volume overloaded and has pulm edema. will diurese when hemodynamically stable 2. Chronic kidney disease, etiology multifactorial. 3. Sepsis, status post shock. The patient is currently off pressor support. Continue antibiotic therapy. Continue gentle volume expansion. Follow up cultures. 4. Mineral bone disorder. Continue to monitor calcium and phosphorus levels. 5. Metabolic acidosis secondary to acute kidney injury. 6. Hypokalemia. Repleted. 7. Anemia. Monitor H and H levels dc epogen 8. Ventilatory-dependent respiratory failure. Vent settings reviewed. ABGs reviewed. Continue to monitor. 9. History of cardiomyopathy. Continue current treatment plan. 10. Dysphagia, status post percutaneous endoscopic gastrostomy. 11. Muscular dystrophy. 12. Acute on chronic congestive heart failure exacerbation. Continue current medical management. Problems: Exam/Review of Systems Vital Signs Vitals Vital Signs Date Time Temp Pulse Resp B/P Pulse Ox O2 Delivery O2 Flow Rate FiO2 10/02/16 11:30 60 24 98 30 10/02/16 07:45 91/46 10/02/16 06:30 Mechanical Ventilator 10/02/16 04:00 98.0 Intake and Output 10/01/16 10/01/1610/02/17 15:00 23:00 07:00 Intake Total 722.49 ml 1097.48 ml 1421.24 ml Output Total 220 ml 100 ml 115 ml Balance 502.49 ml 997.48 ml 1306.24 ml Results Result Diagram: 10/02/16 0500 10/02/16 0500 Results 24 hrs Laboratory Tests Test 10/01/16 13:51 10/01/16 18:29 10/01/16 21:32 10/02/16 01:15 Bedside Glucose 256 H 289 H 215 150 Test 10/02/16 05:00 10/02/16 05:26 10/02/16 08:39 10/02/16 13:05 White Blood Count 15.3 H Red Blood Count 3.43 L Hemoglobin 9.8 L Hematocrit 32.7 L Mean Corpuscular Volume 95.3 Mean Corpuscular Hemoglobin 28.6 L Mean Corpuscular Hemoglobin Concent 30.0 L Red Cell Distribution Width 19.8 H Platelet Count 381 Mean Platelet Volume 9.7 Neutrophils % 73.1 Lymphocytes % 6.8 L Monocytes % 7.6 Eosinophils % 10.0 H Basophils % 0.7 Nucleated Red Blood Cells % 0.5 H Neutrophils # (Manual) 11 H Lymphocytes # 1.1 Monocytes # 1.2 H Eosinophils # 1.5 H Basophils # 0.1 Nucleated Red Blood Cells # 0.1 H Sodium Level 138 Potassium Level 4.0 Chloride Level 104 Carbon Dioxide Level 19 L Anion Gap 19 H Blood Urea Nitrogen 87 H Creatinine 0.88 Glucose Level 108 # Calcium Level 8.8 Phosphorus Level 4.3 Magnesium Level 2.6 H Bedside Glucose 122 95 85 Medications Medications Current Medications Ondansetron HCl (Zofran Inj) 4 mg Q6H PRN IV NAUSEA AND/OR VOMITING Last administered on 09/24/16 11:53; Admin Dose 4 MG; Start 09/15/16 at 06:30 Acetaminophen (Tylenol Tab) 650 mg Q6H PRN PO PAIN LEVEL 1-3 OR FEVER Last administered on 09/16/16 20:10; Admin Dose 650 MG; Start 09/15/16 at 06:30 Acetaminophen (Tylenol Supp) 650 mg Q6H PRN [place] PAIN LEVEL 1-3 OR FEVER; Start 09/15/16 at 06:30 Amiodarone HCl (Cordarone) 200 mg DAILY GTB Last administered on 10/02/16 10: 01; Admin Dose 200 MG; Start 09/15/16 at 09:00 Bisacodyl (Dulcolax Supp) 10 mg Q24H PRN [place] CONSTIPATION; Start 09/15/16 at 06: 30 Chlorhexidine Gluconate (Peridex) 15 ml BID MM Last administered on 10/02/16 09:56; Admin Dose 15 ML; Start 09/15/16 at 09:00 Docusate Sodium (Colace) 200 mg QHS PRN PO CONSTIPATION; Start 09/15/16 at 06:30 Lisinopril (Zestril) 2.5 mg BID GTB Last administered on 09/15/16 09:24; Admin Dose 2.5 MG; Start 09/15/16 at 09:00; Status Future Hold Epoetin Kt (Epogen (Non Esrd/Non Oncology)) 3,000 units MoWeFr@17 SC Last administered on 09/30/16 17:34; Admin Dose 3,000 UNITS; Start 09/16/16 at 17:00 Diphenhydramine HCl (Benadryl) 25 mg Q6H PRN IV ITCHING Last administered on 13:56; Admin Dose 25 MG; Start 09/15/16 at 21:00 Tramadol HCl (Ultram) 50 mg Q6H PRN GTB PAIN LEVEL 6-10 Last administered on 21:57; Admin Dose 50 MG; Start 09/17/16 at 12:00 Miscellaneous Information 1 ea NOTE XX ; Start 09/17/16 at 12:00 Miscellaneous Information 1 ea NOTE XX ; Start 09/17/16 at 22:45 Glucose (Glutose) 15 gm Q15M PRN PO DECREASED GLUCOSE; Start 09/17/16 at 22:45 Glucose (Glutose) 22.5 gm Q15M PRN PO DECREASED GLUCOSE; Start 09/17/16 at 22:45 Dextrose (D50w Syringe) 25 ml Q15M PRN IV DECREASED GLUCOSE; Start 09/17/16 at 22:45 Dextrose (D50w Syringe) 50 ml Q15M PRN IV DECREASED GLUCOSE; Start 09/17/16 at 22:45 Glucagon (Glucagen) 1 mg Q15M PRN IM DECREASED GLUCOSE; Start 09/17/16 at 22:45 Glucose (Glutose) 15 gm Q15M PRN BUCCAL DECREASED GLUCOSE; Start 09/17/16 at 22: 45 Acetaminophen (Tylenol Tab) 650 mg Q4 PRN GTB PAIN AND OR ELEVATED TEMP Last administered on 09/23/16 00:59; Admin Dose 650 MG; Start 09/18/16 at 11:30 Albuterol (Proventil 0.083% (Neb)) 2.5 mg Q3H PRN NEB WHEEZING AND SOB; Start 09/18/16 at 11:30 Ascorbic Acid (Vitamin C) 500 mg BID PO Last administered on 10/02/16 09:56; Admin Dose 500 MG; Start 09/18/16 at 21:00 Folic Acid (Folic Acid) 1 mg DAILY GTB Last administered on 10/02/16 09:56; Admin Dose 1 MG; Start 09/19/16 at 09:00 Hydroxyzine HCl (Atarax) 25 mg Q8H PRN PO ITCHING; Start 09/18/16 at 11:30 Lorazepam (Ativan) 1 mg Q8 PRN GTB ANXIETY Last administered on 09/22/16 09:17 ; Admin Dose 1 MG; Start 09/18/16 at 11:30 Magnesium Hydroxide (Milk Of Mag) 30 ml DAILY PRN GTB CONSTIPATION Last administered on 09/23/16 17:19; Admin Dose 30 ML; Start 09/18/16 at 11:30 Sodium Biphosphate/ Sodium Phosphate (Fleet Enema Pediatric) 66.6 ml DAILY PRN [place] CONSTIPATION; Start 09/18/16 at 11:30 Lactobacillus Acidophilus/ Rhamnosus (Culturelle) 1 cap BID PO Last administered on 10/02/16 09:56; Admin Dose 1 CAP; Start 09/18/16 at 21:00 Morphine Sulfate (morphine) 2 mg Q4H PRN IV PAIN LEVEL 7-10 Last administered on 09/30/16 12:49; Admin Dose 2 MG; Start 09/19/16 at 11:30 Lorazepam (Ativan) 1 mg Q6H PRN IV ANXIETY Last administered on 09/28/16 01:48 ; Admin Dose 1 MG; Start 09/19/16 at 18:30 Midodrine (Proamatine) 5 mg TID GTB Last administered on 10/02/16 12:58; Admin Dose 5 MG; Start 09/21/16 at 06:00 Ferrous Sulfate (Ferrous Sulfate (Ec)) 325 mg TID PO Last administered on 12:58; Admin Dose 325 MG; Start 09/21/16 at 10:00 Multivitamins 30 ml 30 ml DAILY GTB Last administered on 10/02/16 09:56; Admin Dose 30 ML; Start 09/21/16 at 10:30 Vancomycin HCl (Vancocin) 250 ml @ 125 mls/hr Q5D IVPB Last administered on 22:00; Admin Dose 125 MLS/HR; Start 09/21/16 at 22:00 Bacitracin (Bacitracin Oint (Ud)) 1 applic BID TOP Last administered on 09:57; Admin Dose 1 APPLIC; Start 09/23/16 at 21:00 Metoclopramide HCl 10 mg 10 mg Q6 IV Last administered on 10/02/16 12:58; Admin Dose 10 MG; Start 09/24/16 at 18:00 Norepinephrine/ Dextrose (Levophed/D5W) 500 ml @ 1.87 mls/hr TITRATE IV Last administered on 10/02/16 05:40; Admin Dose 52.5 MLS/HR; Start 09/25/16 at 07:00 ; Status Future hold Lactulose (Enulose) 20 gm BID PO Last administered on 10/02/16 09:56; Admin Dose 20 GM; Start 09/25/16 at 21:00 IV Flush 10 ml 10 ml PRN PRN IV IV PROTOCOL; Start 09/25/16 at 16:00 Meropenem/Sodium Chloride (Merrem 500mg/50 ml(Pmx)) 50 ml @ 200 mls/hr Q12 IVPB Last administered on 10/02/16 09:56; Admin Dose 200 MLS/HR; Start at 21:00 Lansoprazole (Prevacid) 30 mg DAILY@06 GTB Last administered on 10/02/16 05:27 ; Admin Dose 30 MG; Start 09/28/16 at 06:00 Bumetanide 1 mg 1 mg DAILY IV Last administered on 09/30/16 08:32; Admin Dose 1 MG; Start 09/30/16 at 09:00; Status Future Hold Metronidazole (Flagyl 500 Mg (Pmx)) 100 ml @ 100 mls/hr Q8 IVPB Last administered on 10/02/16 05:27; Admin Dose 100 MLS/HR; Start 09/30/16 at 14:30 Insulin Aspart (Novolog Insulin Pen) NOVOLOG *MODERATE* ALGORI... Q4 SC Last administered on 10/02/16 01:21; Admin Dose 2 UNIT; Start 09/30/16 at 17:00 Insulin Detemir 40 unit 40 unit HS SC Last administered on 10/01/16 21:43; Admin Dose 40 UNIT; Start 10/01/16 at 21:00 Vasopressin 60 unit/Dextrose 60 ml @ 1.2 mls/hr Q12H IV ; Start 10/01/16 at 11: 00 Albumin Human (Albumin Human 25%) 50 ml @ 100 mls/hr Q8H IV Last administered on 10/02/16 10:00; Admin Dose 100 MLS/HR; Start 10/02/16 at 09:00; Stop at 01:29 ANJEL AMADOR DO Oct 02, 2016 13:35
--- NOTE | 2016-10-02 13:42 | CONS ---
Date/Time of Note Date/Time of Note DATE: 10/02/16 TIME: 13:40 Assessment/Plan Assessment/Plan Chief Complaint/Hosp Course No acute changes, Remains on Levophed drip. Week, lethargic, in no distress. Temperature 98 pulse 60 respirations 24 blood pressure 91/46 saturation 98 on 30 FiO2 WBC 15.3 H&H 9.8 and 32.7 platelets 381 neutrophils 73.1 BUN 87 creatinine 0.88 INDWELLING: Trach, PEG, Matthew, rectal tube. ANTIMICROBIALS: Meropenem, Flagyl, vancomycin. PHYSICAL EXAMINATION: GENERAL: This is a chronically ill-appearing, obese, wasted, middle-aged woman, who is lethargic, arousable, and in no distress. HEENT: Head atraumatic, normocephalic. Sclerae anicteric. Buccal mucosa dry. NECK: Obese. LUNGS: Chest rise symmetrical. Breath sounds diminished at bases with scattered crackles. HEART: S1, S2. ABDOMEN: Obese, soft, bowel sounds present. EXTREMITIES: With bilateral edema. ASSESSMENT: 1. Shock, likely multifactorial. 2. Healthcare-associated pneumonia. 3. Decompensated congestive heart failure. 4. Cardiomyopathy. 5. Diarrhea, started on empiric Flagyl. 6. Recurrent ascites, status post multiple paracentesis, last one done on September 28, with 8.3 L of fluid being removed, previous ascitic fluid cultures being negative. 7. Status post Delia glabrata urinary tract infection. 8. Diabetes. PLAN: The patient remains hemodynamically unstable, on broad-spectrum antibiotics, so far blood cultures have been negative and repeat urine culture on September 28 negative, ascitic fluid cultures negative as well. Continue present care. Follow recommendations of consultants. Prognosis is guarded. Discussed with staff and family at bedside Problems: Consultation Date/Type/Reason Admit Date/Time Sep 15, 2016 at 01:59 Initial Consult Date 09/18/16 Type of Consultation: id Exam/Review of Systems Vital Signs Vitals Vital Signs Date Time Temp Pulse Resp B/P Pulse Ox O2 Delivery O2 Flow Rate FiO2 10/02/16 11:30 60 24 98 30 10/02/16 07:45 91/46 10/02/16 06:30 Mechanical Ventilator 10/02/16 04:00 98.0 Intake and Output 10/01/16 10/01/16 10/02/16 15:00 23:00 07:00 Intake Total 722.49 ml 1097.48 ml 1421.24 ml Output Total 220 ml 100 ml 115 ml Balance 502.49 ml 997.48 ml 1306.24 ml Results Result Diagram: 10/02/16 0500 10/02/16 0500 Results 24 hrs Laboratory Tests Test 10/01/16 13:51 10/01/16 18:29 10/01/16 21:32 10/02/16 01:15 Bedside Glucose 256 H 289 H 215 150 Test 10/02/16 05:00 10/02/16 05:26 10/02/16 08:39 10/02/16 13:05 White Blood Count 15.3 H Red Blood Count 3.43 L Hemoglobin 9.8 L Hematocrit 32.7 L Mean Corpuscular Volume 95.3 Mean Corpuscular Hemoglobin 28.6 L Mean Corpuscular Hemoglobin Concent 30.0 L Red Cell Distribution Width 19.8 H Platelet Count 381 Mean Platelet Volume 9.7 Neutrophils % 73.1 Lymphocytes % 6.8 L Monocytes % 7.6 Eosinophils % 10.0 H Basophils % 0.7 Nucleated Red Blood Cells % 0.5 H Neutrophils # (Manual) 11 H Lymphocytes # 1.1 Monocytes # 1.2 H Eosinophils # 1.5 H Basophils # 0.1 Nucleated Red Blood Cells # 0.1 H Sodium Level 138 Potassium Level 4.0 Chloride Level 104 Carbon Dioxide Level 19 L Anion Gap 19 H Blood Urea Nitrogen 87 H Creatinine 0.88 Glucose Level 108 # Calcium Level 8.8 Phosphorus Level 4.3 Magnesium Level 2.6 H Bedside Glucose 122 95 85 Medications Medications Current Medications Ondansetron HCl (Zofran Inj) 4 mg Q6H PRN IV NAUSEA AND/OR VOMITING Last administered on 09/24/16 11:53; Admin Dose 4 MG; Start 09/15/16 at 06:30 Acetaminophen (Tylenol Tab) 650 mg Q6H PRN PO PAIN LEVEL 1-3 OR FEVER Last administered on 09/16/16 20:10; Admin Dose 650 MG; Start 09/15/16 at 06:30 Acetaminophen (Tylenol Supp) 650 mg Q6H PRN [place] PAIN LEVEL 1-3 OR FEVER; Start 09/15/16 at 06:30 Amiodarone HCl (Cordarone) 200 mg DAILY GTB Last administered on 10/02/16 10: 01; Admin Dose 200 MG; Start 09/15/16 at 09:00 Bisacodyl (Dulcolax Supp) 10 mg Q24H PRN [place] CONSTIPATION; Start 09/15/16 at 06: 30 Chlorhexidine Gluconate (Peridex) 15 ml BID MM Last administered on 10/02/16 09:56; Admin Dose 15 ML; Start 09/15/16 at 09:00 Docusate Sodium (Colace) 200 mg QHS PRN PO CONSTIPATION; Start 09/15/16 at 06:30 Lisinopril (Zestril) 2.5 mg BID GTB Last administered on 09/15/16 09:24; Admin Dose 2.5 MG; Start 09/15/16 at 09:00; Status Future Hold Epoetin Kt (Epogen (Non Esrd/Non Oncology)) 3,000 units MoWeFr@17 SC Last administered on 09/30/16 17:34; Admin Dose 3,000 UNITS; Start 09/16/16 at 17:00 Diphenhydramine HCl (Benadryl) 25 mg Q6H PRN IV ITCHING Last administered on 13:56; Admin Dose 25 MG; Start 09/15/16 at 21:00 Tramadol HCl (Ultram) 50 mg Q6H PRN GTB PAIN LEVEL 6-10 Last administered on 21:57; Admin Dose 50 MG; Start 09/17/16 at 12:00 Miscellaneous Information 1 ea NOTE XX ; Start 09/17/16 at 12:00 Miscellaneous Information 1 ea NOTE XX ; Start 09/17/16 at 22:45 Glucose (Glutose) 15 gm Q15M PRN PO DECREASED GLUCOSE; Start 09/17/16 at 22:45 Glucose (Glutose) 22.5 gm Q15M PRN PO DECREASED GLUCOSE; Start 09/17/16 at 22:45 Dextrose (D50w Syringe) 25 ml Q15M PRN IV DECREASED GLUCOSE; Start 09/17/16 at 22:45 Dextrose (D50w Syringe) 50 ml Q15M PRN IV DECREASED GLUCOSE; Start 09/17/16 at 22:45 Glucagon (Glucagen) 1 mg Q15M PRN IM DECREASED GLUCOSE; Start 09/17/16 at 22:45 Glucose (Glutose) 15 gm Q15M PRN BUCCAL DECREASED GLUCOSE; Start 09/17/16 at 22: 45 Acetaminophen (Tylenol Tab) 650 mg Q4 PRN GTB PAIN AND OR ELEVATED TEMP Last administered on 09/23/16 00:59; Admin Dose 650 MG; Start 09/18/16 at 11:30 Albuterol (Proventil 0.083% (Neb)) 2.5 mg Q3H PRN NEB WHEEZING AND SOB; Start 09/18/16 at 11:30 Ascorbic Acid (Vitamin C) 500 mg BID PO Last administered on 10/02/16 09:56; Admin Dose 500 MG; Start 09/18/16 at 21:00 Folic Acid (Folic Acid) 1 mg DAILY GTB Last administered on 10/02/16 09:56; Admin Dose 1 MG; Start 09/19/16 at 09:00 Hydroxyzine HCl (Atarax) 25 mg Q8H PRN PO ITCHING; Start 09/18/16 at 11:30 Lorazepam (Ativan) 1 mg Q8 PRN GTB ANXIETY Last administered on 09/22/16 09:17 ; Admin Dose 1 MG; Start 09/18/16 at 11:30 Magnesium Hydroxide (Milk Of Mag) 30 ml DAILY PRN GTB CONSTIPATION Last administered on 09/23/16 17:19; Admin Dose 30 ML; Start 09/18/16 at 11:30 Sodium Biphosphate/ Sodium Phosphate (Fleet Enema Pediatric) 66.6 ml DAILY PRN ME CONSTIPATION; Start 09/18/16 at 11:30 Lactobacillus Acidophilus/ Rhamnosus (Culturelle) 1 cap BID PO Last administered on 10/02/16 09:56; Admin Dose 1 CAP; Start 09/18/16 at 21:00 Morphine Sulfate (morphine) 2 mg Q4H PRN IV PAIN LEVEL 7-10 Last administered on 09/30/16 12:49; Admin Dose 2 MG; Start 09/19/16 at 11:30 Lorazepam (Ativan) 1 mg Q6H PRN IV ANXIETY Last administered on 09/28/16 01:48 ; Admin Dose 1 MG; Start 09/19/16 at 18:30 Midodrine (Proamatine) 5 mg TID GTB Last administered on 10/02/16 12:58; Admin Dose 5 MG; Start 09/21/16 at 06:00 Ferrous Sulfate (Ferrous Sulfate (Ec)) 325 mg TID PO Last administered on 12:58; Admin Dose 325 MG; Start 09/21/16 at 10:00 Multivitamins 30 ml 30 ml DAILY GTB Last administered on 10/02/16 09:56; Admin Dose 30 ML; Start 09/21/16 at 10:30 Vancomycin HCl (Vancocin) 250 ml @ 125 mls/hr Q5D IVPB Last administered on 22:00; Admin Dose 125 MLS/HR; Start 09/21/16 at 22:00 Bacitracin (Bacitracin Oint (Ud)) 1 applic BID TOP Last administered on 09:57; Admin Dose 1 APPLIC; Start 09/23/16 at 21:00 Metoclopramide HCl 10 mg 10 mg Q6 IV Last administered on 10/02/16 12:58; Admin Dose 10 MG; Start 09/24/16 at 18:00 Norepinephrine/ Dextrose (Levophed/D5W) 500 ml @ 1.87 mls/hr TITRATE IV Last administered on 10/02/16 05:40; Admin Dose 52.5 MLS/HR; Start 09/25/16 at 07:00 ; Status Future hold Lactulose (Enulose) 20 gm BID PO Last administered on 10/02/16 09:56; Admin Dose 20 GM; Start 09/25/16 at 21:00 IV Flush 10 ml 10 ml PRN PRN IV IV PROTOCOL; Start 09/25/16 at 16:00 Meropenem/Sodium Chloride (Merrem 500mg/50 ml(Pmx)) 50 ml @ 200 mls/hr Q12 IVPB Last administered on 10/02/16 09:56; Admin Dose 200 MLS/HR; Start at 21:00 Lansoprazole (Prevacid) 30 mg DAILY@06 GTB Last administered on 10/02/16 05:27 ; Admin Dose 30 MG; Start 09/28/16 at 06:00 Bumetanide 1 mg 1 mg DAILY IV Last administered on 09/30/16 08:32; Admin Dose 1 MG; Start 09/30/16 at 09:00; Status Future Hold Metronidazole (Flagyl 500 Mg (Pmx)) 100 ml @ 100 mls/hr Q8 IVPB Last administered on 10/02/16 05:27; Admin Dose 100 MLS/HR; Start 09/30/16 at 14:30 Insulin Aspart (Novolog Insulin Pen) NOVOLOG *MODERATE* ALGORI... Q4 SC Last administered on 10/02/16 01:21; Admin Dose 2 UNIT; Start 09/30/16 at 17:00 Insulin Detemir 40 unit 40 unit HS SC Last administered on 10/01/16 21:43; Admin Dose 40 UNIT; Start 10/01/16 at 21:00 Vasopressin 60 unit/Dextrose 60 ml @ 1.2 mls/hr Q12H IV ; Start 10/01/16 at 11: 00 Albumin Human (Albumin Human 25%) 50 ml @ 100 mls/hr Q8H IV Last administered on 10/02/16 10:00; Admin Dose 100 MLS/HR; Start 10/02/16 at 09:00; Stop at 01:29 JANNETH BURTON NP Oct 02, 2016 13:41
--- NOTE | 2016-10-02 14:28 | CONS ---
Date/Time of Note Date/Time of Note DATE: 10/02/16 TIME: 14:26 Assessment/Plan Assessment/Plan Chief Complaint/Hosp Course Assessment: Shock - likely multifactorial Healthcare-associated pneumonia - on antibiotics Acute on chronic systolic heart failure Cardiomyopathy, LVEF 20-25% - unclear etiology, unclear if patient has ever had ischemic workup, possibly due to muscular dystrophy Acute kidney injury on chronic kidney disease Chronic ventilator-dependent respiratory failure Muscular dystrophy Paroxysmal atrial fibrillation and atrial flutter History of ventricular tachycardia (Torsades de pointes) - status post Bi-V ICD upgrade January 2015 (Navidog) Diabetes mellitus Anemia of chronic disease History of right lower extremity deep vein thrombosis Severe peripheral arterial disease - prior CT LE angio with evidence of [employer] SFA and severe disease of popliteal Recommendations: - Levophed to keep MAP>65, wean as tolerated - off beta-armando and JUAN inhibitor due to hypotension and renal failure, resume for systolic heart failure as able - continue amiodarone 200mg daily - consider restarting on chronic anticoagulation paroxysmal atrial fibrillation and history of deep vein thrombosis when clinically more stable - echocardiogram showed LVEF 20-25%, RVSP 63 mmHg Problems: Consultation Date/Type/Reason Admit Date/Time Sep 15, 2016 at 01:59 Initial Consult Date 09/18/16 Type of Consultation: Cardiology 24 HR Interval Summary Free Text/Dictation Remains on high dose Levophed drip. Detailed Summary Additional Comments Unable to obtain review of systems, patient on ventilator. Exam/Review of Systems Vital Signs Vitals Vital Signs Date Time Temp Pulse Resp B/P Pulse Ox O2 Delivery O2 Flow Rate FiO2 10/02/16 11:30 60 24 98 30 10/02/16 07:45 91/46 10/02/16 06:30 Mechanical Ventilator 10/02/16 04:00 98.0 Intake and Output 10/01/16 10/01/16 10/02/16 15:00 23:00 07:00 Intake Total 722.49 ml 1097.48 ml 1421.24 ml Output Total 220 ml 100 ml 115 ml Balance 502.49 ml 997.48 ml 1306.24 ml Exam Constitutional: No alert, No distress Psych: No nl mood/affect, No no complaints Head: atraumatic, normocephalic Eyes: nl conjunctiva, nl lids ENMT: nl external ears & nose, nl nasal mucosa & septum Neck: other (tracheostomy) Respiratory: crackles/rales, diminished breath sounds Cardiovascular: irregular rhythm Gastrointestinal: non-tender, soft Extremities: No clubbing, No cyanosis Neurological: No nl mental status, No nl speech Results Result Diagram: 10/02/16 0500 10/02/16 0500 Results 24 hrs Laboratory Tests Test 10/01/16 18:29 10/01/16 21:32 10/02/16 01:15 10/02/16 05:00 Bedside Glucose 289 H 215 150 White Blood Count 15.3 H Red Blood Count 3.43 L Hemoglobin 9.8 L Hematocrit 32.7 L Mean Corpuscular Volume 95.3 Mean Corpuscular Hemoglobin 28.6 L Mean Corpuscular Hemoglobin Concent 30.0 L Red Cell Distribution Width 19.8 H Platelet Count 381 Mean Platelet Volume 9.7 Neutrophils % 73.1 Lymphocytes % 6.8 L Monocytes % 7.6 Eosinophils % 10.0 H Basophils % 0.7 Nucleated Red Blood Cells % 0.5 H Neutrophils # (Manual) 11 H Lymphocytes # 1.1 Monocytes # 1.2 H Eosinophils # 1.5 H Basophils # 0.1 Nucleated Red Blood Cells # 0.1 H Sodium Level 138 Potassium Level 4.0 Chloride Level 104 Carbon Dioxide Level 19 L Anion Gap 19 H Blood Urea Nitrogen 87 H Creatinine 0.88 Glucose Level 108 # Calcium Level 8.8 Phosphorus Level 4.3 Magnesium Level 2.6 H Test 10/02/16 05:26 10/02/16 08:39 10/02/16 13:05 Bedside Glucose 122 95 85 Medications Medications Current Medications Ondansetron HCl (Zofran Inj) 4 mg Q6H PRN IV NAUSEA AND/OR VOMITING Last administered on 09/24/16 11:53; Admin Dose 4 MG; Start 09/15/16 at 06:30 Acetaminophen (Tylenol Tab) 650 mg Q6H PRN PO PAIN LEVEL 1-3 OR FEVER Last administered on 09/16/16 20:10; Admin Dose 650 MG; Start 09/15/16 at 06:30 Acetaminophen (Tylenol Supp) [address] PAIN LEVEL 1-3 OR FEVER; Start 09/15/16 at 06:30 Amiodarone HCl (Cordarone) 200 mg DAILY GTB Last administered on 10/02/16 10: 01; Admin Dose 200 MG; Start 09/15/16 at 09:00 Bisacodyl (Dulcolax Supp) [address] CONSTIPATION; Start 09/15/16 at 06: 30 Chlorhexidine Gluconate (Peridex) 15 ml BID MM Last administered on 10/02/16 09:56; Admin Dose 15 ML; Start 09/15/16 at 09:00 Docusate Sodium (Colace) 200 mg QHS PRN PO CONSTIPATION; Start 09/15/16 at 06:30 Lisinopril (Zestril) 2.5 mg BID GTB Last administered on 09/15/16 09:24; Admin Dose 2.5 MG; Start 09/15/16 at 09:00; Status Future Hold Epoetin Kt (Epogen (Non Esrd/Non Oncology)) 3,000 units MoWeFr@17 SC Last administered on 09/30/16 17:34; Admin Dose 3,000 UNITS; Start 09/16/16 at 17:00 Diphenhydramine HCl (Benadryl) 25 mg Q6H PRN IV ITCHING Last administered on 13:56; Admin Dose 25 MG; Start 09/15/16 at 21:00 Tramadol HCl (Ultram) 50 mg Q6H PRN GTB PAIN LEVEL 6-10 Last administered on 21:57; Admin Dose 50 MG; Start 09/17/16 at 12:00 Miscellaneous Information 1 ea NOTE XX ; Start 09/17/16 at 12:00 Miscellaneous Information 1 ea NOTE XX ; Start 09/17/16 at 22:45 Glucose (Glutose) 15 gm Q15M PRN PO DECREASED GLUCOSE; Start 09/17/16 at 22:45 Glucose (Glutose) 22.5 gm Q15M PRN PO DECREASED GLUCOSE; Start 09/17/16 at 22:45 Dextrose (D50w Syringe) 25 ml Q15M PRN IV DECREASED GLUCOSE; Start 09/17/16 at 22:45 Dextrose (D50w Syringe) 50 ml Q15M PRN IV DECREASED GLUCOSE; Start 09/17/16 at 22:45 Glucagon (Glucagen) 1 mg Q15M PRN IM DECREASED GLUCOSE; Start 09/17/16 at 22:45 Glucose (Glutose) 15 gm Q15M PRN BUCCAL DECREASED GLUCOSE; Start 09/17/16 at 22: 45 Acetaminophen (Tylenol Tab) 650 mg Q4 PRN GTB PAIN AND OR ELEVATED TEMP Last administered on 09/23/16 00:59; Admin Dose 650 MG; Start 09/18/16 at 11:30 Albuterol (Proventil 0.083% (Neb)) 2.5 mg Q3H PRN NEB WHEEZING AND SOB; Start 09/18/16 at 11:30 Ascorbic Acid (Vitamin C) 500 mg BID PO Last administered on 10/02/16 09:56; Admin Dose 500 MG; Start 09/18/16 at 21:00 Folic Acid (Folic Acid) 1 mg DAILY GTB Last administered on 10/02/16 09:56; Admin Dose 1 MG; Start 09/19/16 at 09:00 Hydroxyzine HCl (Atarax) 25 mg Q8H PRN PO ITCHING; Start 09/18/16 at 11:30 Lorazepam (Ativan) 1 mg Q8 PRN GTB ANXIETY Last administered on 09/22/16 09:17 ; Admin Dose 1 MG; Start 09/18/16 at 11:30 Magnesium Hydroxide (Milk Of Mag) 30 ml DAILY PRN GTB CONSTIPATION Last administered on 09/23/16 17:19; Admin Dose 30 ML; Start 09/18/16 at 11:30 Sodium Biphosphate/ Sodium Phosphate (Fleet Enema Pediatric) 66.[address] CONSTIPATION; Start 09/18/16 at 11:30 Lactobacillus Acidophilus/ Rhamnosus (Culturelle) 1 cap BID PO Last administered on 10/02/16 09:56; Admin Dose 1 CAP; Start 09/18/16 at 21:00 Morphine Sulfate (morphine) 2 mg Q4H PRN IV PAIN LEVEL 7-10 Last administered on 09/30/16 12:49; Admin Dose 2 MG; Start 09/19/16 at 11:30 Lorazepam (Ativan) 1 mg Q6H PRN IV ANXIETY Last administered on 09/28/16 01:48 ; Admin Dose 1 MG; Start 09/19/16 at 18:30 Midodrine (Proamatine) 5 mg TID GTB Last administered on 10/02/16 12:58; Admin Dose 5 MG; Start 09/21/16 at 06:00 Ferrous Sulfate (Ferrous Sulfate (Ec)) 325 mg TID PO Last administered on 12:58; Admin Dose 325 MG; Start 09/21/16 at 10:00 Multivitamins 30 ml 30 ml DAILY GTB Last administered on 10/02/16 09:56; Admin Dose 30 ML; Start 09/21/16 at 10:30 Vancomycin HCl (Vancocin) 250 ml @ 125 mls/hr Q5D IVPB Last administered on 22:00; Admin Dose 125 MLS/HR; Start 09/21/16 at 22:00 Bacitracin (Bacitracin Oint (Ud)) 1 applic BID TOP Last administered on 09:57; Admin Dose 1 APPLIC; Start 09/23/16 at 21:00 Metoclopramide HCl 10 mg 10 mg Q6 IV Last administered on 10/02/16 12:58; Admin Dose 10 MG; Start 09/24/16 at 18:00 Norepinephrine/ Dextrose (Levophed/D5W) 500 ml @ 1.87 mls/hr TITRATE IV Last administered on 10/02/16 05:40; Admin Dose 52.5 MLS/HR; Start 09/25/16 at 07:00 ; Status Future hold Lactulose (Enulose) 20 gm BID PO Last administered on 10/02/16 09:56; Admin Dose 20 GM; Start 09/25/16 at 21:00 IV Flush 10 ml 10 ml PRN PRN IV IV PROTOCOL; Start 09/25/16 at 16:00 Meropenem/Sodium Chloride (Merrem 500mg/50 ml(Pmx)) 50 ml @ 200 mls/hr Q12 IVPB Last administered on 10/02/16 09:56; Admin Dose 200 MLS/HR; Start at 21:00 Lansoprazole (Prevacid) 30 mg DAILY@06 GTB Last administered on 10/02/16 05:27 ; Admin Dose 30 MG; Start 09/28/16 at 06:00 Bumetanide 1 mg 1 mg DAILY IV Last administered on 09/30/16 08:32; Admin Dose 1 MG; Start 09/30/16 at 09:00; Status Future Hold Metronidazole (Flagyl 500 Mg (Pmx)) 100 ml @ 100 mls/hr Q8 IVPB Last administered on 10/02/16 05:27; Admin Dose 100 MLS/HR; Start 09/30/16 at 14:30 Insulin Aspart (Novolog Insulin Pen) NOVOLOG *MODERATE* ALGORI... Q4 SC Last administered on 10/02/16 01:21; Admin Dose 2 UNIT; Start 09/30/16 at 17:00 Insulin Detemir 40 unit 40 unit HS SC Last administered on 10/01/16 21:43; Admin Dose 40 UNIT; Start 10/01/16 at 21:00 Vasopressin 60 unit/Dextrose 60 ml @ 1.2 mls/hr Q12H IV ; Start 10/01/16 at 11: 00 Albumin Human (Albumin Human 25%) 50 ml @ 100 mls/hr Q8H IV Last administered on 10/02/16 10:00; Admin Dose 100 MLS/HR; Start 10/02/16 at 09:00; Stop at 01:29 ERICK GUTHRIE MD Oct 02, 2016 14:28
--- NOTE | 2016-10-02 16:09 | PN ---
Date/Time of Note Date/Time of Note DATE: 10/02/16 TIME: 16:06 Assessment/Plan VTE Prophylaxis VTE Prophylaxis Intervention: SCD's Lines/Catheters IV Catheter Type (from Nrsg): PICC Line Central line still needed: Yes Urinary Cath still in place: Yes Reason Cath still needed: terminal illness/intractable pain Assessment/Plan Chief Complaint/Hosp Course Patient is a 50-year-old female with chronic trach and PEG secondary to muscular dystrophy who presents to [facility] for hypoxia and altered mental status, found to be in septic shock due to healthcare associated pneumonia. Assessment and problem list Septic shock due to healthcare associated pneumonia Healthcare associated pneumonia Vent dependent respiratory failure, chronic Cardiomyopathy with ejection fraction of 30-35% with biventricular AICD A. fib and a flutter, currently not on anticoagulation, paced UTI Chronic anoxic encephalopathy Dysphasia Diabetes Chronic kidney disease Hypertension Lower extremity quadriplegia Anemia Pulmonary hypertension Leukocytosis Diarrhea Plan -attempting albumin trial to titrate off pressors. -Patient's sugars better controlled with high dose of long acting, stop scheduled short acting, given patient's tube feed status, will likely benefit from appropriate long acting dosage. -Continue antibiotics per infectious disease -Pulmonology following, appreciate recommendations -Patient had titrated off pressors however after large volume paracentesis, hypotension return and patient was resumed on Levophed. Patient also on midodrine. -Cardiology and nephrology also consulted, appreciate recommendations, patient on amiodarone for A. fib, Bumex for volume overload however may be influencing patient's blood pressure, so stopped bumex. -Monitor hemoglobin -Neurologic baseline currently More than 35 minutes was spent on this encounter. Problems: Subjective 24 Hr Interval Summary Free Text/Dictation patient lethargic Exam/Review of Systems Vital Signs Vitals Vital Signs Date Time Temp Pulse Resp B/P Pulse Ox O2 Delivery O2 Flow Rate FiO2 10/02/16 15:15 60 24 96/51 10/02/16 15:00 100 10/02/16 14:00 Mechanical Ventilator 10/02/16 12:00 98.2 10/02/16 11:30 30 Intake and Output 10/01/16 10/01/16 10/02/16 15:00 23:00 07:00 Intake Total 722.49 ml 1097.48 ml 1421.24 ml Output Total 220 ml 100 ml 115 ml Balance 502.49 ml 997.48 ml 1306.24 ml Exam Physical exam General: Patient is laying in bed, bedbound Mentation: Patient is alert and oriented, does not speak Head: Normocephalic atraumatic Eyes: EOMI, pupils reactive to light Neck: Supple, nontender, midline Respiratory: Coarse to auscultation bilaterally Cardiovascular: regular rate, no obvious murmurs Gastrointestinal: non-tender to palpation, bowel sounds heard. peg tube Neurological: Moves UE to command. can feel but not move LE bilaterally Results Result Diagram: 10/02/16 0500 10/02/16 0500 Results 24 hrs Laboratory Tests Test 10/01/16 18:29 10/01/16 21:32 10/02/16 01:15 10/02/16 05:00 Bedside Glucose 289 H 215 150 White Blood Count 15.3 H Red Blood Count 3.43 L Hemoglobin 9.8 L Hematocrit 32.7 L Mean Corpuscular Volume 95.3 Mean Corpuscular Hemoglobin 28.6 L Mean Corpuscular Hemoglobin Concent 30.0 L Red Cell Distribution Width 19.8 H Platelet Count 381 Mean Platelet Volume 9.7 Neutrophils % 73.1 Lymphocytes % 6.8 L Monocytes % 7.6 Eosinophils % 10.0 H Basophils % 0.7 Nucleated Red Blood Cells % 0.5 H Neutrophils # (Manual) 11 H Lymphocytes # 1.1 Monocytes # 1.2 H Eosinophils # 1.5 H Basophils # 0.1 Nucleated Red Blood Cells # 0.1 H Sodium Level 138 Potassium Level 4.0 Chloride Level 104 Carbon Dioxide Level 19 L Anion Gap 19 H Blood Urea Nitrogen 87 H Creatinine 0.88 Glucose Level 108 # Calcium Level 8.8 Phosphorus Level 4.3 Magnesium Level 2.6 H Test 10/02/16 05:26 10/02/16 08:39 10/02/16 13:05 Bedside Glucose 122 95 85 Medications Medications Current Medications Ondansetron HCl (Zofran Inj) 4 mg Q6H PRN IV NAUSEA AND/OR VOMITING Last administered on 09/24/16 11:53; Admin Dose 4 MG; Start 09/15/16 at 06:30 Acetaminophen (Tylenol Tab) 650 mg Q6H PRN PO PAIN LEVEL 1-3 OR FEVER Last administered on 09/16/16 20:10; Admin Dose 650 MG; Start 09/15/16 at 06:30 Acetaminophen (Tylenol Supp) 650 mg Q6H PRN SC PAIN LEVEL 1-3 OR FEVER; Start 09/15/16 at 06:30 Amiodarone HCl (Cordarone) 200 mg DAILY GTB Last administered on 10/02/16 10: 01; Admin Dose 200 MG; Start 09/15/16 at 09:00 Bisacodyl (Dulcolax Supp) 10 mg Q24H PRN SC CONSTIPATION; Start 09/15/16 at 06: 30 Chlorhexidine Gluconate (Peridex) 15 ml BID MM Last administered on 10/02/16 09:56; Admin Dose 15 ML; Start 09/15/16 at 09:00 Docusate Sodium (Colace) 200 mg QHS PRN PO CONSTIPATION; Start 09/15/16 at 06:30 Lisinopril (Zestril) 2.5 mg BID GTB Last administered on 09/15/16 09:24; Admin Dose 2.5 MG; Start 09/15/16 at 09:00; Status Future Hold Diphenhydramine HCl (Benadryl) 25 mg Q6H PRN IV ITCHING Last administered on 13:56; Admin Dose 25 MG; Start 09/15/16 at 21:00 Tramadol HCl (Ultram) 50 mg Q6H PRN GTB PAIN LEVEL 6-10 Last administered on 21:57; Admin Dose 50 MG; Start 09/17/16 at 12:00 Miscellaneous Information 1 ea NOTE XX ; Start 09/17/16 at 12:00 Miscellaneous Information 1 ea NOTE XX ; Start 09/17/16 at 22:45 Glucose (Glutose) 15 gm Q15M PRN PO DECREASED GLUCOSE; Start 09/17/16 at 22:45 Glucose (Glutose) 22.5 gm Q15M PRN PO DECREASED GLUCOSE; Start 09/17/16 at 22:45 Dextrose (D50w Syringe) 25 ml Q15M PRN IV DECREASED GLUCOSE; Start 09/17/16 at 22:45 Dextrose (D50w Syringe) 50 ml Q15M PRN IV DECREASED GLUCOSE; Start 09/17/16 at 22:45 Glucagon (Glucagen) 1 mg Q15M PRN IM DECREASED GLUCOSE; Start 09/17/16 at 22:45 Glucose (Glutose) 15 gm Q15M PRN BUCCAL DECREASED GLUCOSE; Start 09/17/16 at 22: 45 Acetaminophen (Tylenol Tab) 650 mg Q4 PRN GTB PAIN AND OR ELEVATED TEMP Last administered on 09/23/16 00:59; Admin Dose 650 MG; Start 09/18/16 at 11:30 Albuterol (Proventil 0.083% (Neb)) 2.5 mg Q3H PRN NEB WHEEZING AND SOB; Start 09/18/16 at 11:30 Ascorbic Acid (Vitamin C) 500 mg BID PO Last administered on 10/02/16 09:56; Admin Dose 500 MG; Start 09/18/16 at 21:00 Folic Acid (Folic Acid) 1 mg DAILY GTB Last administered on 10/02/16 09:56; Admin Dose 1 MG; Start 09/19/16 at 09:00 Hydroxyzine HCl (Atarax) 25 mg Q8H PRN PO ITCHING; Start 09/18/16 at 11:30 Lorazepam (Ativan) 1 mg Q8 PRN GTB ANXIETY Last administered on 09/22/16 09:17 ; Admin Dose 1 MG; Start 09/18/16 at 11:30 Magnesium Hydroxide (Milk Of Mag) 30 ml DAILY PRN GTB CONSTIPATION Last administered on 09/23/16 17:19; Admin Dose 30 ML; Start 09/18/16 at 11:30 Sodium Biphosphate/ Sodium Phosphate (Fleet Enema Pediatric) 66.6 ml DAILY PRN SC CONSTIPATION; Start 09/18/16 at 11:30 Lactobacillus Acidophilus/ Rhamnosus (Culturelle) 1 cap BID PO Last administered on 10/02/16 09:56; Admin Dose 1 CAP; Start 09/18/16 at 21:00 Morphine Sulfate (morphine) 2 mg Q4H PRN IV PAIN LEVEL 7-10 Last administered on 09/30/16 12:49; Admin Dose 2 MG; Start 09/19/16 at 11:30 Lorazepam (Ativan) 1 mg Q6H PRN IV ANXIETY Last administered on 09/28/16 01:48 ; Admin Dose 1 MG; Start 09/19/16 at 18:30 Midodrine (Proamatine) 5 mg TID GTB Last administered on 10/02/16 12:58; Admin Dose 5 MG; Start 09/21/16 at 06:00 Ferrous Sulfate (Ferrous Sulfate (Ec)) 325 mg TID PO Last administered on 12:58; Admin Dose 325 MG; Start 09/21/16 at 10:00 Multivitamins 30 ml 30 ml DAILY GTB Last administered on 10/02/16 09:56; Admin Dose 30 ML; Start 09/21/16 at 10:30 Vancomycin HCl (Vancocin) 250 ml @ 125 mls/hr Q5D IVPB Last administered on 22:00; Admin Dose 125 MLS/HR; Start 09/21/16 at 22:00 Bacitracin (Bacitracin Oint (Ud)) 1 applic BID TOP Last administered on 09:57; Admin Dose 1 APPLIC; Start 09/23/16 at 21:00 Metoclopramide HCl 10 mg 10 mg Q6 IV Last administered on 10/02/16 12:58; Admin Dose 10 MG; Start 09/24/16 at 18:00 Norepinephrine/ Dextrose (Levophed/D5W) 500 ml @ 1.87 mls/hr TITRATE IV Last administered on 10/02/16 05:40; Admin Dose 52.5 MLS/HR; Start 09/25/16 at 07:00 ; Status Future hold Lactulose (Enulose) 20 gm BID PO Last administered on 10/02/16 09:56; Admin Dose 20 GM; Start 09/25/16 at 21:00 IV Flush 10 ml 10 ml PRN PRN IV IV PROTOCOL; Start 09/25/16 at 16:00 Meropenem/Sodium Chloride (Merrem 500mg/50 ml(Pmx)) 50 ml @ 200 mls/hr Q12 IVPB Last administered on 10/02/16 09:56; Admin Dose 200 MLS/HR; Start at 21:00 Lansoprazole (Prevacid) 30 mg DAILY@06 GTB Last administered on 10/02/16 05:27 ; Admin Dose 30 MG; Start 09/28/16 at 06:00 Bumetanide 1 mg 1 mg DAILY IV Last administered on 09/30/16 08:32; Admin Dose 1 MG; Start 09/30/16 at 09:00; Status Future Hold Metronidazole (Flagyl 500 Mg (Pmx)) 100 ml @ 100 mls/hr Q8 IVPB Last administered on 10/02/16 14:53; Admin Dose 100 MLS/HR; Start 09/30/16 at 14:30 Insulin Aspart (Novolog Insulin Pen) NOVOLOG *MODERATE* ALGORI... Q4 SC Last administered on 10/02/16 01:21; Admin Dose 2 UNIT; Start 09/30/16 at 17:00 Insulin Detemir 40 unit 40 unit HS SC Last administered on 10/01/16 21:43; Admin Dose 40 UNIT; Start 10/01/16 at 21:00 Vasopressin 60 unit/Dextrose 60 ml @ 1.2 mls/hr Q12H IV ; Start 10/01/16 at 11: 00 Albumin Human (Albumin Human 25%) 50 ml @ 100 mls/hr Q8H IV Last administered on 10/02/16 10:00; Admin Dose 100 MLS/HR; Start 10/02/16 at 09:00; Stop at 01:29 JAIR GRANGER Oct 02, 2016 16:09
[2016-10-02] MEDS: INSULIN DETEMIR [LEVEMIR] 3ML CART SC SCH (21:00)
[2016-10-02] MEDS: hydrOXYzine HCL 25 MG TAB PO PRN (23:50)
[2016-10-03] VITALS (106 sets, daily range): BP systolic 66–109; BP diastolic 43–89; PULSE 55–90; RESP 10–27
[2016-10-03] MEDS: INSULIN ASPART [NOVOLOG] 3 ML PEN SC SCH ×6 (01:00→20:35)
[2016-10-03] MEDS: ALBUMIN HUMAN 25% 50 ML IV SCH (01:02)
[2016-10-03] MEDS: traMADol 50 MG TAB GTB PRN ×2 (01:04→21:23)
[2016-10-03] MEDS: ALBUTEROL 18 GM INHALER INH SCH ×6 (01:26→21:22)
[2016-10-03] MEDS: metroNIDAZOLE 500 MG/NS (PMX) 100 ML IVPB SCH ×3 (05:58→21:23)
[2016-10-03] MEDS: METOCLOPRAMIDE 10 MG INJ IV SCH ×4 (05:58→18:46)
[2016-10-03] MEDS: LANSOPRAZOLE 30 MG CAP GTB SCH (05:58)
[2016-10-03 06:00] LABS: BASOPHIL # 0.1 10^3/ul (0.0-0.1); BASOPHILS % 0.4 % (0.0-2.0); EOSINOPHILS # 1.2 10^3/ul (0.0-0.5); EOSINOPHILS % 10.3 % (0.0-7.0); HEMATOCRIT 32.2 % (37.0-47.0); HEMOGLOBIN 9.5 g/dl (12.0-16.0); LYMPHOCYTES # 1.1 10^3/ul (0.8-2.9); LYMPHOCYTES % 9.3 % (15.0-51.0); MEAN CORPUSCULAR HEMOGLOBIN 27.9 pg (29.0-33.0); MEAN CORPUSCULAR HGB CONC 29.5 g/dl (32.0-37.0); MEAN CORPUSCULAR VOLUME 94.7 fl (82.0-101.0); MEAN PLATELET VOLUME 9.6 fl (7.4-10.4); MONOCYTE # 0.7 10^3/ul (0.3-0.9); MONOCYTES % 6.2 % (0.0-11.0); NEUTROPHILS % 72.2 % (39.0-77.0); NUCLEATED RED BLOOD CELLS% 0.3 /100WBC (0.0-0.0); PLATELET COUNT 341 10^3/UL (140-415); RED CELL DISTRIBUTION WIDTH 19.7 % (11.5-14.5); WHITE BLOOD COUNT 11.3 10^3/ul (4.8-10.8)
[2016-10-03 06:17] LABS: CALCIUM 9.1 mg/dl (8.4-10.2); CREATININE 0.86 mg/dl (0.44-1.00); MAGNESIUM 2.6 mg/dl (1.7-2.5); PHOSPHORUS 4.8 mg/dl (2.5-4.9); POTASSIUM 4.5 mmol/L (3.5-5.1)
[2016-10-03] MEDS ORDERED: POLYETHYLENE GLYCOL 17 GM PACKET NGT PRN (08:00)
--- NOTE | 2016-10-03 08:49 | RADRPT ---
PROCEDURE: XR Abdomen. CLINICAL INDICATION: POSSIBLE ILEUS TECHNIQUE: AP portable supine radiographs of the abdomen. COMPARISON: 09/19/2016 FINDINGS: Extensive bilateral airspace opacities and probable small pleural effusions are seen. There is inc reased colonic distension with abundant retained fecal material. No dilated gas filled loops of smal l bowel are seen. The osseus structures are unremarkable. The exam is limited due to body habitus IMPRESSION: Increased colonic distension and abundant stool. Physician Kriss Date Time Electronically viewed and signed by Physician Kriss on 10/03/2016 08:49 CS/
[2016-10-03] MEDS: MEROPENEM 500MG/50 ML (PMX) 50 ML IVPB SCH ×2 (09:50→20:03)
[2016-10-03] MEDS: BACITRACIN 0.9 GM OINT TOP SCH ×2 (09:50→20:15)
[2016-10-03] MEDS: LACTULOSE 30ML CUP PO SCH ×3 (09:50→21:25)
[2016-10-03] MEDS: CHLORHEXIDINE GLUCONATE 15 ML UD CUP MM SCH ×2 (09:50→20:02)
[2016-10-03] MEDS: ASCORBIC ACID 500 MG TAB PO SCH ×2 (09:50→20:02)
[2016-10-03] MEDS: FERROUS SULFATE (EC) 325 MG TAB PO SCH ×3 (09:50→20:02)
[2016-10-03] MEDS: MIDODRINE 5 MG TAB GTB SCH ×3 (09:50→20:02)
[2016-10-03] MEDS: AMIODARONE 200 MG TAB GTB SCH (09:50)
[2016-10-03] MEDS: MULTIVITAMINS 30 ML CUP GTB SCH (09:50)
[2016-10-03] MEDS: LACTOBACILLUS RHAMNOSUS CAP PO SCH ×2 (09:50→20:02)
[2016-10-03] MEDS: FOLIC ACID 1 MG TAB GTB SCH (09:50)
[2016-10-03] MEDS: VASOPRESSIN 60 UNIT in DEXTROSE 5% 57 ML IV SCH ×2 (11:00→23:00)
--- NOTE | 2016-10-03 11:23 | PN ---
Date/Time of Note Date/Time of Note DATE: 10/03/16 TIME: 11:23 Assessment/Plan VTE Prophylaxis VTE Prophylaxis Intervention: other Lines/Catheters IV Catheter Type (from Nrsg): PICC Line Central line still needed: Yes Urinary Cath still in place: Yes Reason Cath still needed: urinary retention Assessment/Plan Chief Complaint/Hosp Course renal follow up SUBJECTIVE DATA: Patient remains in ICU, but stable. No other events noted. No hemoptysis, hematemesis, hematochezia. discussed with family at the bedside s/p paracentesis ([id number]) OBJECTIVE DATA: HEENT: Head is normocephalic. NECK: Supple. HEART: Regular rate. LUNGS: Diminished breath sounds at the base. ABDOMEN: Soft, nontender to palpation. No rebound or guarding. EXTREMITIES: Negative for clubbing, cyanosis. Positive edema. DERMATOLOGIC: No rashes. MUSCULOSKELETAL: No joint effusion. NEUROLOGIC: No change in exam. MEDICATIONS: Reviewed. 1. Oliguric acute kidney injury on top of chronic kidney disease stage IIIB/IV. Etiology of acute kidney injury secondary to sepsis and acute tubular necrosis. She is volume overloaded and has pulm edema. will diurese with bumex 2. Chronic kidney disease, etiology multifactorial. 3. Sepsis, status post shock. The patient is currently off pressor support. Continue antibiotic therapy. Continue gentle volume expansion. Follow up cultures. 4. Mineral bone disorder. Continue to monitor calcium and phosphorus levels. 5. Metabolic acidosis secondary to acute kidney injury. 6. Hypokalemia. Repleted. 7. Anemia. Monitor H and H levels dc epogen 8. Ventilatory-dependent respiratory failure. Vent settings reviewed. ABGs reviewed. Continue to monitor. 9. History of cardiomyopathy. Continue current treatment plan. 10. Dysphagia, status post percutaneous endoscopic gastrostomy. 11. Muscular dystrophy. 12. Acute on chronic congestive heart failure exacerbation. Continue current medical management. Problems: Exam/Review of Systems Vital Signs Vitals Vital Signs Date Time Temp Pulse Resp B/P Pulse Ox O2 Delivery O2 Flow Rate FiO2 10/03/16 10:55 60 24 99 30 10/03/16 07:00 104/56 Mechanical Ventilator 10/03/16 04:30 98.0 Intake and Output 10/02/16 10/02/16 10/03/16 15:00 23:00 07:00 Intake Total 671.24 ml 403.10 ml 591.86 ml Output Total 35 ml 90 ml Balance 671.24 ml 368.10 ml 501.86 ml Results Result Diagram: 10/03/16 0500 10/03/16 0500 Results 24 hrs Laboratory Tests Test 10/02/16 13:05 10/02/16 18:20 10/02/16 20:33 10/03/16 01:22 Bedside Glucose 85 86 84 105 Test 10/03/16 05:00 10/03/16 05:01 10/03/16 09:52 White Blood Count 11.3 #H Red Blood Count 3.40 L Hemoglobin 9.5 L Hematocrit 32.2 L Mean Corpuscular Volume 94.7 Mean Corpuscular Hemoglobin 27.9 L Mean Corpuscular Hemoglobin Concent 29.5 L Red Cell Distribution Width 19.7 H Platelet Count 341 Mean Platelet Volume 9.6 Neutrophils % 72.2 Lymphocytes % 9.3 L Monocytes % 6.2 Eosinophils % 10.3 H Basophils % 0.4 Nucleated Red Blood Cells % 0.3 H Neutrophils # (Manual) 8 H Lymphocytes # 1.1 Monocytes # 0.7 Eosinophils # 1.2 H Basophils # 0.1 Nucleated Red Blood Cells # 0.0 Sodium Level 134 L Potassium Level 4.5 Chloride Level 101 Carbon Dioxide Level 16 L Anion Gap 22 H Blood Urea Nitrogen 89 H Creatinine 0.86 Glucose Level 95 Calcium Level 9.1 Phosphorus Level 4.8 Magnesium Level 2.6 H Bedside Glucose 115 123 Medications Medications Current Medications Ondansetron HCl (Zofran Inj) 4 mg Q6H PRN IV NAUSEA AND/OR VOMITING Last administered on 09/24/16 11:53; Admin Dose 4 MG; Start 09/15/16 at 06:30 Acetaminophen (Tylenol Tab) 650 mg Q6H PRN PO PAIN LEVEL 1-3 OR FEVER Last administered on 09/16/16 20:10; Admin Dose 650 MG; Start 09/15/16 at 06:30 Acetaminophen (Tylenol Supp) 650 mg Q6H PRN SC PAIN LEVEL 1-3 OR FEVER; Start 09/15/16 at 06:30 Amiodarone HCl (Cordarone) 200 mg DAILY GTB Last administered on 10/03/16 09: 50; Admin Dose 200 MG; Start 09/15/16 at 09:00 Bisacodyl (Dulcolax Supp) 10 mg Q24H PRN SC CONSTIPATION; Start 09/15/16 at 06: 30 Chlorhexidine Gluconate (Peridex) 15 ml BID MM Last administered on 10/03/16 09:50; Admin Dose 15 ML; Start 09/15/16 at 09:00 Docusate Sodium (Colace) 200 mg QHS PRN PO CONSTIPATION; Start 09/15/16 at 06:30 Lisinopril (Zestril) 2.5 mg BID GTB Last administered on 09/15/16 09:24; Admin Dose 2.5 MG; Start 09/15/16 at 09:00; Status Future Hold Diphenhydramine HCl (Benadryl) 25 mg Q6H PRN IV ITCHING Last administered on 13:56; Admin Dose 25 MG; Start 09/15/16 at 21:00 Tramadol HCl (Ultram) 50 mg Q6H PRN GTB PAIN LEVEL 6-10 Last administered on 01:04; Admin Dose 50 MG; Start 09/17/16 at 12:00 Miscellaneous Information 1 ea NOTE XX ; Start 09/17/16 at 12:00 Miscellaneous Information 1 ea NOTE XX ; Start 09/17/16 at 22:45 Glucose (Glutose) 15 gm Q15M PRN PO DECREASED GLUCOSE; Start 09/17/16 at 22:45 Glucose (Glutose) 22.5 gm Q15M PRN PO DECREASED GLUCOSE; Start 09/17/16 at 22:45 Dextrose (D50w Syringe) 25 ml Q15M PRN IV DECREASED GLUCOSE; Start 09/17/16 at 22:45 Dextrose (D50w Syringe) 50 ml Q15M PRN IV DECREASED GLUCOSE; Start 09/17/16 at 22:45 Glucagon (Glucagen) 1 mg Q15M PRN IM DECREASED GLUCOSE; Start 09/17/16 at 22:45 Glucose (Glutose) 15 gm Q15M PRN BUCCAL DECREASED GLUCOSE; Start 09/17/16 at 22: 45 Acetaminophen (Tylenol Tab) 650 mg Q4 PRN GTB PAIN AND OR ELEVATED TEMP Last administered on 09/23/16 00:59; Admin Dose 650 MG; Start 09/18/16 at 11:30 Albuterol (Proventil 0.083% (Neb)) 2.5 mg Q3H PRN NEB WHEEZING AND SOB; Start 09/18/16 at 11:30 Ascorbic Acid (Vitamin C) 500 mg BID PO Last administered on 10/03/16 09:50; Admin Dose 500 MG; Start 09/18/16 at 21:00 Folic Acid (Folic Acid) 1 mg DAILY GTB Last administered on 10/03/16 09:50; Admin Dose 1 MG; Start 09/19/16 at 09:00 Hydroxyzine HCl (Atarax) 25 mg Q8H PRN PO ITCHING Last administered on 23:50; Admin Dose 25 MG; Start 09/18/16 at 11:30 Lorazepam (Ativan) 1 mg Q8 PRN GTB ANXIETY Last administered on 09/22/16 09:17 ; Admin Dose 1 MG; Start 09/18/16 at 11:30 Magnesium Hydroxide (Milk Of Mag) 30 ml DAILY PRN GTB CONSTIPATION Last administered on 09/23/16 17:19; Admin Dose 30 ML; Start 09/18/16 at 11:30 Sodium Biphosphate/ Sodium Phosphate (Fleet Enema Pediatric) 66.6 ml DAILY PRN SC CONSTIPATION; Start 09/18/16 at 11:30 Lactobacillus Acidophilus/ Rhamnosus (Culturelle) 1 cap BID PO Last administered on 10/03/16 09:50; Admin Dose 1 CAP; Start 09/18/16 at 21:00 Morphine Sulfate (morphine) 2 mg Q4H PRN IV PAIN LEVEL 7-10 Last administered on 09/30/16 12:49; Admin Dose 2 MG; Start 09/19/16 at 11:30 Lorazepam (Ativan) 1 mg Q6H PRN IV ANXIETY Last administered on 09/28/16 01:48 ; Admin Dose 1 MG; Start 09/19/16 at 18:30 Midodrine (Proamatine) 5 mg TID GTB Last administered on 10/03/16 09:50; Admin Dose 5 MG; Start 09/21/16 at 06:00 Ferrous Sulfate (Ferrous Sulfate (Ec)) 325 mg TID PO Last administered on 09:50; Admin Dose 325 MG; Start 09/21/16 at 10:00 Multivitamins 30 ml 30 ml DAILY GTB Last administered on 10/03/16 09:50; Admin Dose 30 ML; Start 09/21/16 at 10:30 Vancomycin HCl (Vancocin) 250 ml @ 125 mls/hr Q5D IVPB Last administered on 22:00; Admin Dose 125 MLS/HR; Start 09/21/16 at 22:00 Bacitracin (Bacitracin Oint (Ud)) 1 applic BID TOP Last administered on 09:50; Admin Dose 1 APPLIC; Start 09/23/16 at 21:00 Metoclopramide HCl 10 mg 10 mg Q6 IV Last administered on 10/03/16 05:58; Admin Dose 10 MG; Start 09/24/16 at 18:00 Norepinephrine/ Dextrose (Levophed/D5W) 500 ml @ 1.87 mls/hr TITRATE IV Last administered on 10/03/16 01:10; Admin Dose 50.62 MLS/HR; Start 09/25/16 at 07: 00; Status Future hold Lactulose (Enulose) 20 gm BID PO Last administered on 10/03/16 09:50; Admin Dose 20 GM; Start 09/25/16 at 21:00 IV Flush 10 ml 10 ml PRN PRN IV IV PROTOCOL; Start 09/25/16 at 16:00 Meropenem/Sodium Chloride (Merrem 500mg/50 ml(Pmx)) 50 ml @ 200 mls/hr Q12 IVPB Last administered on 10/03/16 09:50; Admin Dose 200 MLS/HR; Start at 21:00 Lansoprazole (Prevacid) 30 mg DAILY@06 GTB Last administered on 10/03/16 05:58 ; Admin Dose 30 MG; Start 09/28/16 at 06:00 Bumetanide 1 mg 1 mg DAILY IV Last administered on 09/30/16 08:32; Admin Dose 1 MG; Start 09/30/16 at 09:00; Status Future Hold Metronidazole (Flagyl 500 Mg (Pmx)) 100 ml @ 100 mls/hr Q8 IVPB Last administered on 10/03/16 05:58; Admin Dose 100 MLS/HR; Start 09/30/16 at 14:30 Insulin Aspart (Novolog Insulin Pen) NOVOLOG *MODERATE* ALGORI... Q4 SC Last administered on 10/02/16 01:21; Admin Dose 2 UNIT; Start 09/30/16 at 17:00 Insulin Detemir 40 unit 40 unit HS SC Last administered on 10/01/16 21:43; Admin Dose 40 UNIT; Start 10/01/16 at 21:00 Vasopressin/ Dextrose (Vasostrict/D5W) 60 ml @ 1.2 mls/hr Q12H IV ; Start 10/01 at 11:00 Polyethylene Glycol (Miralax) 17 gm DAILY PRN NGT CONSTIPATION; Start 10/03/16 at 08:00 ANJEL AMADOR DO Oct 03, 2016 11:23
[2016-10-03] MEDS ORDERED: BUMETANIDE 1 MG INJ IV ONE (11:30)
--- NOTE | 2016-10-03 11:32 | PN ---
Date/Time of Note Date/Time of Note DATE: 10/03/16 TIME: 11:29 Assessment/Plan VTE Prophylaxis VTE Prophylaxis Intervention: SCD's Lines/Catheters IV Catheter Type (from Nrsg): PICC Line Central line still needed: Yes Urinary Cath still in place: Yes Reason Cath still needed: terminal illness/intractable pain Assessment/Plan Chief Complaint/Hosp Course Patient is a 50-year-old female with chronic trach and PEG secondary to muscular dystrophy who presents to [facility] for hypoxia and altered mental status, found to be in septic shock due to healthcare associated pneumonia. Assessment and problem list Septic shock due to healthcare associated pneumonia Healthcare associated pneumonia Vent dependent respiratory failure, chronic Cardiomyopathy with ejection fraction of 30-35% with biventricular AICD A. fib and a flutter, currently not on anticoagulation, paced UTI Chronic anoxic encephalopathy Dysphasia Diabetes Chronic kidney disease Hypertension Lower extremity quadriplegia Anemia Pulmonary hypertension Leukocytosis Diarrhea Plan -nephro ordered 1 dose bumex -lots of residuals and mildly distended stomach, kub ordered and found stool, scheduled miralax, already getting lactulose. May have to perform enema. -lowered levophed slightly -Patient's sugars better controlled with high dose of long acting, stop scheduled short acting, given patient's tube feed status, will likely benefit from appropriate long acting dosage. -Continue antibiotics per infectious disease -Pulmonology following, appreciate recommendations -Patient had titrated off pressors before however after large volume paracentesis, hypotension return and patient was resumed on Levophed. Patient also on midodrine. -Cardiology and nephrology also consulted, appreciate recommendations, patient on amiodarone for A. fib, Bumex for volume overload however may be influencing patient's blood pressure, so holding for now. -Monitor hemoglobin -Neurologic baseline currently More than 35 minutes was spent on this encounter. Problems: Exam/Review of Systems Vital Signs Vitals Vital Signs Date Time Temp Pulse Resp B/P Pulse Ox O2 Delivery O2 Flow Rate FiO2 10/03/16 10:55 60 24 99 30 10/03/16 07:00 104/56 Mechanical Ventilator 10/03/16 04:30 98.0 Intake and Output 10/02/16 10/02/16 10/03/16 15:00 23:00 07:00 Intake Total 671.24 ml 403.10 ml 591.86 ml Output Total 35 ml 90 ml Balance 671.24 ml 368.10 ml 501.86 ml Exam Physical exam General: Patient is laying in bed, bedbound Mentation: Patient is lethargic Head: Normocephalic atraumatic Eyes: EOMI, pupils reactive to light Neck: Supple, nontender, midline Respiratory: Coarse to auscultation bilaterally Cardiovascular: regular rate, no obvious murmurs Gastrointestinal: mildly distended. non-tender to palpation, bowel sounds heard. peg tube Neurological:lethargic Results Result Diagram: 10/03/16 0500 10/03/16 0500 Results 24 hrs Laboratory Tests Test 10/02/16 13:05 10/02/16 18:20 10/02/16 20:33 10/03/16 01:22 Bedside Glucose 85 86 84 105 Test 10/03/16 05:00 10/03/16 05:01 10/03/16 09:52 White Blood Count 11.3 #H Red Blood Count 3.40 L Hemoglobin 9.5 L Hematocrit 32.2 L Mean Corpuscular Volume 94.7 Mean Corpuscular Hemoglobin 27.9 L Mean Corpuscular Hemoglobin Concent 29.5 L Red Cell Distribution Width 19.7 H Platelet Count 341 Mean Platelet Volume 9.6 Neutrophils % 72.2 Lymphocytes % 9.3 L Monocytes % 6.2 Eosinophils % 10.3 H Basophils % 0.4 Nucleated Red Blood Cells % 0.3 H Neutrophils # (Manual) 8 H Lymphocytes # 1.1 Monocytes # 0.7 Eosinophils # 1.2 H Basophils # 0.1 Nucleated Red Blood Cells # 0.0 Sodium Level 134 L Potassium Level 4.5 Chloride Level 101 Carbon Dioxide Level 16 L Anion Gap 22 H Blood Urea Nitrogen 89 H Creatinine 0.86 Glucose Level 95 Calcium Level 9.1 Phosphorus Level 4.8 Magnesium Level 2.6 H Bedside Glucose 115 123 Medications Medications Current Medications Ondansetron HCl (Zofran Inj) 4 mg Q6H PRN IV NAUSEA AND/OR VOMITING Last administered on 09/24/16 11:53; Admin Dose 4 MG; Start 09/15/16 at 06:30 Acetaminophen (Tylenol Tab) 650 mg Q6H PRN PO PAIN LEVEL 1-3 OR FEVER Last administered on 09/16/16 20:10; Admin Dose 650 MG; Start 09/15/16 at 06:30 Acetaminophen (Tylenol Supp) 650 mg Q6H PRN [place] PAIN LEVEL 1-3 OR FEVER; Start 09/15/16 at 06:30 Amiodarone HCl (Cordarone) 200 mg DAILY GTB Last administered on 10/03/16 09: 50; Admin Dose 200 MG; Start 09/15/16 at 09:00 Bisacodyl (Dulcolax Supp) 10 mg Q24H PRN [place] CONSTIPATION; Start 09/15/16 at 06: 30 Chlorhexidine Gluconate (Peridex) 15 ml BID MM Last administered on 10/03/16 09:50; Admin Dose 15 ML; Start 09/15/16 at 09:00 Docusate Sodium (Colace) 200 mg QHS PRN PO CONSTIPATION; Start 09/15/16 at 06:30 Lisinopril (Zestril) 2.5 mg BID GTB Last administered on 09/15/16 09:24; Admin Dose 2.5 MG; Start 09/15/16 at 09:00; Status Future Hold Diphenhydramine HCl (Benadryl) 25 mg Q6H PRN IV ITCHING Last administered on 13:56; Admin Dose 25 MG; Start 09/15/16 at 21:00 Tramadol HCl (Ultram) 50 mg Q6H PRN GTB PAIN LEVEL 6-10 Last administered on 01:04; Admin Dose 50 MG; Start 09/17/16 at 12:00 Miscellaneous Information 1 ea NOTE XX ; Start 09/17/16 at 12:00 Miscellaneous Information 1 ea NOTE XX ; Start 09/17/16 at 22:45 Glucose (Glutose) 15 gm Q15M PRN PO DECREASED GLUCOSE; Start 09/17/16 at 22:45 Glucose (Glutose) 22.5 gm Q15M PRN PO DECREASED GLUCOSE; Start 09/17/16 at 22:45 Dextrose (D50w Syringe) 25 ml Q15M PRN IV DECREASED GLUCOSE; Start 09/17/16 at 22:45 Dextrose (D50w Syringe) 50 ml Q15M PRN IV DECREASED GLUCOSE; Start 09/17/16 at 22:45 Glucagon (Glucagen) 1 mg Q15M PRN IM DECREASED GLUCOSE; Start 09/17/16 at 22:45 Glucose (Glutose) 15 gm Q15M PRN BUCCAL DECREASED GLUCOSE; Start 09/17/16 at 22: 45 Acetaminophen (Tylenol Tab) 650 mg Q4 PRN GTB PAIN AND OR ELEVATED TEMP Last administered on 09/23/16 00:59; Admin Dose 650 MG; Start 09/18/16 at 11:30 Albuterol (Proventil 0.083% (Neb)) 2.5 mg Q3H PRN NEB WHEEZING AND SOB; Start 09/18/16 at 11:30 Ascorbic Acid (Vitamin C) 500 mg BID PO Last administered on 10/03/16 09:50; Admin Dose 500 MG; Start 09/18/16 at 21:00 Folic Acid (Folic Acid) 1 mg DAILY GTB Last administered on 10/03/16 09:50; Admin Dose 1 MG; Start 09/19/16 at 09:00 Hydroxyzine HCl (Atarax) 25 mg Q8H PRN PO ITCHING Last administered on 23:50; Admin Dose 25 MG; Start 09/18/16 at 11:30 Lorazepam (Ativan) 1 mg Q8 PRN GTB ANXIETY Last administered on 09/22/16 09:17 ; Admin Dose 1 MG; Start 09/18/16 at 11:30 Magnesium Hydroxide (Milk Of Mag) 30 ml DAILY PRN GTB CONSTIPATION Last administered on 09/23/16 17:19; Admin Dose 30 ML; Start 09/18/16 at 11:30 Sodium Biphosphate/ Sodium Phosphate (Fleet Enema Pediatric) 66.6 ml DAILY PRN [place] CONSTIPATION; Start 09/18/16 at 11:30 Lactobacillus Acidophilus/ Rhamnosus (Culturelle) 1 cap BID PO Last administered on 10/03/16 09:50; Admin Dose 1 CAP; Start 09/18/16 at 21:00 Morphine Sulfate (morphine) 2 mg Q4H PRN IV PAIN LEVEL 7-10 Last administered on 09/30/16 12:49; Admin Dose 2 MG; Start 09/19/16 at 11:30 Lorazepam (Ativan) 1 mg Q6H PRN IV ANXIETY Last administered on 09/28/16 01:48 ; Admin Dose 1 MG; Start 09/19/16 at 18:30 Midodrine (Proamatine) 5 mg TID GTB Last administered on 10/03/16 09:50; Admin Dose 5 MG; Start 09/21/16 at 06:00 Ferrous Sulfate (Ferrous Sulfate (Ec)) 325 mg TID PO Last administered on 09:50; Admin Dose 325 MG; Start 09/21/16 at 10:00 Multivitamins 30 ml 30 ml DAILY GTB Last administered on 10/03/16 09:50; Admin Dose 30 ML; Start 09/21/16 at 10:30 Vancomycin HCl (Vancocin) 250 ml @ 125 mls/hr Q5D IVPB Last administered on 22:00; Admin Dose 125 MLS/HR; Start 09/21/16 at 22:00 Bacitracin (Bacitracin Oint (Ud)) 1 applic BID TOP Last administered on 09:50; Admin Dose 1 APPLIC; Start 09/23/16 at 21:00 Metoclopramide HCl 10 mg 10 mg Q6 IV Last administered on 10/03/16 05:58; Admin Dose 10 MG; Start 09/24/16 at 18:00 Norepinephrine/ Dextrose (Levophed/D5W) 500 ml @ 1.87 mls/hr TITRATE IV Last administered on 10/03/16 01:10; Admin Dose 50.62 MLS/HR; Start 09/25/16 at 07: 00; Status Future hold Lactulose (Enulose) 20 gm BID PO Last administered on 10/03/16 09:50; Admin Dose 20 GM; Start 09/25/16 at 21:00 IV Flush 10 ml 10 ml PRN PRN IV IV PROTOCOL; Start 09/25/16 at 16:00 Meropenem/Sodium Chloride (Merrem 500mg/50 ml(Pmx)) 50 ml @ 200 mls/hr Q12 IVPB Last administered on 10/03/16 09:50; Admin Dose 200 MLS/HR; Start at 21:00 Lansoprazole (Prevacid) 30 mg DAILY@06 GTB Last administered on 10/03/16 05:58 ; Admin Dose 30 MG; Start 09/28/16 at 06:00 Bumetanide 1 mg 1 mg DAILY IV Last administered on 09/30/16 08:32; Admin Dose 1 MG; Start 09/30/16 at 09:00; Status Future Hold Metronidazole (Flagyl 500 Mg (Pmx)) 100 ml @ 100 mls/hr Q8 IVPB Last administered on 10/03/16 05:58; Admin Dose 100 MLS/HR; Start 09/30/16 at 14:30 Insulin Aspart (Novolog Insulin Pen) NOVOLOG *MODERATE* ALGORI... Q4 SC Last administered on 10/02/16 01:21; Admin Dose 2 UNIT; Start 09/30/16 at 17:00 Insulin Detemir 40 unit 40 unit HS SC Last administered on 10/01/16 21:43; Admin Dose 40 UNIT; Start 10/01/16 at 21:00 Vasopressin/ Dextrose (Vasostrict/D5W) 60 ml @ 1.2 mls/hr Q12H IV ; Start 10/01 at 11:00 Polyethylene Glycol (Miralax) 17 gm DAILY PEG ; Start 10/03/16 at 11:30; Status UNV Bumetanide (Bumex) 1 mg ONCE ONCE IV ; Start 10/03/16 at 11:30; Stop 10/03/16 at 11:31 JAIR GRANGER Oct 03, 2016 11:31
[2016-10-03] MEDS: POLYETHYLENE GLYCOL 17 GM PACKET PEG SCH (11:35)
--- NOTE | 2016-10-03 17:28 | PN ---
DATE: 10/03/2016 SUBJECTIVE: No events overnight. The patient remains on Levophed at 20 mcg per minute. Lethargic and in no distress. LABORATORY AND DIAGNOSTIC DATA: 1. WBC 11.3, H and H 9.5 and 32.2, platelets 341. Neutrophils 72.2, BUN 89, creatinine 0.86. 2. KUB revealed increased colonic distention and abundant stool. 3. Indwelling trach, Matthew, PICC line placed on September 25. 4. Antimicrobials: Vancomycin, meropenem and Flagyl. PHYSICAL EXAMINATION: VITALS: Temperature 98, pulse 60, respirations 24, blood pressure 104/56, saturation 96 on vent. GENERAL: This is a chronically ill-appearing, obese, middle-aged woman who is lethargic, in no distress. HEENT: Head atraumatic and normocephalic. Sclerae are anicteric. Buccal mucosa is dry. NECK: Supple. Tracheostomy is present. CHEST: Rise symmetrical. Breath sounds are diminished at the bases. HEART: S1, S2. ABDOMEN: Soft, but distended. Bowel sounds hypoactive. EXTREMITIES: Bilateral edema. ASSESSMENT: 1. Septic shock. 2. Healthcare-associated pneumonia. 3. Acute on chronic respiratory failure. 4. Decompensated congestive heart failure. 5. Recurrent ascites, status post multiple paracentesis with fluid. Cultures remain negative. 6. Cardiomyopathy. 7. Diabetes. 8. Status post Delia glabrata urinary tract infection. 9. Muscle dystrophy. 10. Acute on chronic kidney disease. PLAN: The patient remains hemodynamically unstable, covered with broad-spectrum antibiotics. So far, blood and urine culture repeated on September 26 and remain negative. She is being followed by multiple consultants. Prognosis is poor. Dictated By: Anita Ingram NP /[email or web address] /Document#: [id number]
[2016-10-03] MEDS: INSULIN DETEMIR [LEVEMIR] 3ML CART SC SCH (20:33)
[2016-10-03] MEDS: ARTIFICIAL TEARS 15 ML OPH BOTH EYES PRN (21:23)
[2016-10-03] MEDS: hydrOXYzine HCL 25 MG TAB PO PRN (21:23)
[2016-10-04] VITALS (103 sets, daily range): BP systolic 66–122; BP diastolic 46–82; PULSE 55–81; RESP 13–26
[2016-10-04] MEDS: INSULIN ASPART [NOVOLOG] 3 ML PEN SC SCH ×6 (01:00→21:00)
[2016-10-04] MEDS: METOCLOPRAMIDE 10 MG INJ IV SCH ×4 (01:01→18:53)
[2016-10-04] MEDS: ALBUTEROL 18 GM INHALER INH SCH ×6 (01:48→20:39)
[2016-10-04] MEDS: LANSOPRAZOLE 30 MG CAP GTB SCH (05:27)
[2016-10-04] MEDS: LACTULOSE 30ML CUP PO SCH ×3 (05:28→21:23)
[2016-10-04] MEDS: DEXTROSE 50% 50 ML SYRINGE IV PRN ×3 (05:32→12:26)
[2016-10-04 05:33] LABS: BASOPHIL # 0.1 10^3/ul (0.0-0.1); BASOPHILS % 0.8 % (0.0-2.0); EOSINOPHILS # 1.1 10^3/ul (0.0-0.5); EOSINOPHILS % 9.8 % (0.0-7.0); HEMATOCRIT 33.8 % (37.0-47.0); HEMOGLOBIN 10.1 g/dl (12.0-16.0); LYMPHOCYTES # 0.9 10^3/ul (0.8-2.9); LYMPHOCYTES % 7.9 % (15.0-51.0); MEAN CORPUSCULAR HEMOGLOBIN 28.1 pg (29.0-33.0); MEAN CORPUSCULAR HGB CONC 29.9 g/dl (32.0-37.0); MEAN CORPUSCULAR VOLUME 94.2 fl (82.0-101.0); MEAN PLATELET VOLUME 9.5 fl (7.4-10.4); MONOCYTE # 0.7 10^3/ul (0.3-0.9); MONOCYTES % 6.2 % (0.0-11.0); NEUTROPHILS % 74.1 % (39.0-77.0); NUCLEATED RED BLOOD CELLS% 0.3 /100WBC (0.0-0.0); PLATELET COUNT 379 10^3/UL (140-415); RED BLOOD COUNT 3.59 10^6/ul (4.20-5.40); RED CELL DISTRIBUTION WIDTH 20.2 % (11.5-14.5); WHITE BLOOD COUNT 11.7 10^3/ul (4.8-10.8)
[2016-10-04] MEDS: metroNIDAZOLE 500 MG/NS (PMX) 100 ML IVPB SCH ×3 (05:33→21:23)
[2016-10-04 05:56] LABS: CALCIUM 9.1 mg/dl (8.4-10.2); CREATININE 0.89 mg/dl (0.44-1.00); POTASSIUM 4.4 mmol/L (3.5-5.1)
[2016-10-04 06:10] LABS: LACTIC ACID 1.2 mmol/L (0.5-2.0)
[2016-10-04] MEDS: MEROPENEM 500MG/50 ML (PMX) 50 ML IVPB SCH ×2 (09:10→21:10)
[2016-10-04] MEDS: RIFAXIMIN 550 MG TAB PO SCH ×2 (09:10→21:10)
[2016-10-04] MEDS: AMIODARONE 200 MG TAB GTB SCH (09:11)
[2016-10-04] MEDS: MIDODRINE 5 MG TAB GTB SCH ×3 (09:11→21:10)
[2016-10-04] MEDS: LACTOBACILLUS RHAMNOSUS CAP PO SCH ×2 (09:11→21:10)
[2016-10-04] MEDS: ASCORBIC ACID 500 MG TAB PO SCH ×2 (09:11→21:10)
[2016-10-04] MEDS: MULTIVITAMINS 30 ML CUP GTB SCH (09:11)
[2016-10-04] MEDS: BACITRACIN 0.9 GM OINT TOP SCH ×2 (09:11→21:10)
[2016-10-04] MEDS: POLYETHYLENE GLYCOL 17 GM PACKET PEG SCH (09:11)
[2016-10-04] MEDS: CHLORHEXIDINE GLUCONATE 15 ML UD CUP MM SCH ×2 (09:11→21:10)
[2016-10-04] MEDS: FOLIC ACID 1 MG TAB GTB SCH (09:12)
[2016-10-04] MEDS: FERROUS SULFATE (EC) 325 MG TAB PO SCH ×3 (09:12→21:10)
--- NOTE | 2016-10-04 10:23 | CONS ---
Date/Time of Note Date/Time of Note DATE: 10/04/16 TIME: 10:20 Assessment/Plan Assessment/Plan Additional Assessment/Plan Ventilator setting; AC of 24, tidal volume 550, PEEP of 5, 30% FiO2. Patient currently on Levophed at 24 mics per minute. Assessment and recommendations; 1. Patient admitted with severe sepsis from pneumonia with failure to be weaned from ventilator requiring a tracheostomy.. 2. CHF. 3. Diabetes. 4. Anemia. 5. Cardiac arrhythmia. 6. Poor mental status. Continue current treatment. Obtain an ABG and follow-up chest x-ray. Prognosis remains poor. Consultation Date/Type/Reason Admit Date/Time Sep 15, 2016 at 01:59 Initial Consult Date 09/16/16 Type of Consultation: Pulmonary/critical care 24 HR Interval Summary Free Text/Dictation Patient's condition remains critical. Patient still requiring high-dose Levophed for blood pressure maintenance. General exam; middle-aged woman, on ventilator via tracheostomy, awake. Currently in no distress. Exam/Review of Systems Vital Signs Vitals Vital Signs Date Time Temp Pulse Resp B/P Pulse Ox O2 Delivery O2 Flow Rate FiO2 10/04/16 08:00 61 10/04/16 06:30 24 100 10/04/16 06:15 93/58 10/04/16 05:53 30 10/04/16 05:45 Mechanical Ventilator 10/04/16 04:00 98.0 Intake and Output 10/03/16 10/03/16 10/04/16 15:00 23:00 07:00 Intake Total 617.50 ml 415 ml Output Total 105 ml 75 ml Balance 512.50 ml 340 ml Exam HEENT exam; supple neck, positive JVD. No lymphadenopathy. Midline trachea. No thyromegaly. Tracheostomy in place. Insertion site is clean. Patient has fair dentition. Pupils are midsize and reactive to light. Chest exam; diminished but clear breath sound. S1-S2 audible, no murmurs. Regular rhythm. Abdomen exam; soft, G-tube in place. Bowel sounds audible. Extremity exam; 1+ edema. 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 Results Result Diagram: 10/04/16 0500 10/04/16 0500 Results 24 hrs Laboratory Tests Test 10/03/16 11:40 10/03/16 12:28 10/03/16 20:30 10/04/16 01:01 Ammonia 59 H Bedside Glucose 148 194 106 Test 10/04/16 05:00 10/04/16 05:26 10/04/16 06:20 10/04/16 09:05 White Blood Count 11.7 H Red Blood Count 3.59 L Hemoglobin 10.1 L Hematocrit 33.8 L Mean Corpuscular Volume 94.2 Mean Corpuscular Hemoglobin 28.1 L Mean Corpuscular Hemoglobin Concent 29.9 L Red Cell Distribution Width 20.2 H Platelet Count 379 Mean Platelet Volume 9.5 Neutrophils % 74.1 Lymphocytes % 7.9 L Monocytes % 6.2 Eosinophils % 9.8 H Basophils % 0.8 Nucleated Red Blood Cells % 0.3 H Neutrophils # (Manual) 9 H Lymphocytes # 0.9 Monocytes # 0.7 Eosinophils # 1.1 H Basophils # 0.1 Nucleated Red Blood Cells # 0.0 Sodium Level 133 L Potassium Level 4.4 Chloride Level 100 Carbon Dioxide Level 16 L Anion Gap 21 H Blood Urea Nitrogen 87 H Creatinine 0.89 Glucose Level 49 #*L Lactic Acid Level 1.2 Calcium Level 9.1 Ammonia 95 #H Bedside Glucose 64 L 89 58 L Test 10/04/16 09:30 10/04/16 09:51 Bedside Glucose 103 81 Medications Medications Current Medications Ondansetron HCl (Zofran Inj) 4 mg Q6H PRN IV NAUSEA AND/OR VOMITING Last administered on 09/24/16 11:53; Admin Dose 4 MG; Start 09/15/16 at 06:30 Acetaminophen (Tylenol Tab) 650 mg Q6H PRN PO PAIN LEVEL 1-3 OR FEVER Last administered on 09/16/16 20:10; Admin Dose 650 MG; Start 09/15/16 at 06:30 Acetaminophen (Tylenol Supp) 650 mg Q6H PRN MA PAIN LEVEL 1-3 OR FEVER; Start 09/15/16 at 06:30 Amiodarone HCl (Cordarone) 200 mg DAILY GTB Last administered on 10/04/16 09: 11; Admin Dose 200 MG; Start 09/15/16 at 09:00 Bisacodyl (Dulcolax Supp) 10 mg Q24H PRN MA CONSTIPATION Last administered on 22:12; Admin Dose 10 MG; Start 09/15/16 at 06:30 Chlorhexidine Gluconate (Peridex) 15 ml BID MM Last administered on 10/04/16 09:11; Admin Dose 15 ML; Start 09/15/16 at 09:00 Docusate Sodium (Colace) 200 mg QHS PRN PO CONSTIPATION; Start 09/15/16 at 06:30 Lisinopril (Zestril) 2.5 mg BID GTB Last administered on 09/15/16 09:24; Admin Dose 2.5 MG; Start 09/15/16 at 09:00; Status Future Hold Diphenhydramine HCl (Benadryl) 25 mg Q6H PRN IV ITCHING Last administered on 13:56; Admin Dose 25 MG; Start 09/15/16 at 21:00 Tramadol HCl (Ultram) 50 mg Q6H PRN GTB PAIN LEVEL 6-10 Last administered on 21:23; Admin Dose 50 MG; Start 09/17/16 at 12:00 Miscellaneous Information 1 ea NOTE XX ; Start 09/17/16 at 12:00 Miscellaneous Information 1 ea NOTE XX ; Start 09/17/16 at 22:45 Glucose (Glutose) 15 gm Q15M PRN PO DECREASED GLUCOSE; Start 09/17/16 at 22:45 Glucose (Glutose) 22.5 gm Q15M PRN PO DECREASED GLUCOSE; Start 09/17/16 at 22:45 Dextrose (D50w Syringe) 25 ml Q15M PRN IV DECREASED GLUCOSE Last administered on 10/04/16 09:13; Admin Dose 25 ML; Start 09/17/16 at 22:45 Dextrose (D50w Syringe) 50 ml Q15M PRN IV DECREASED GLUCOSE; Start 09/17/16 at 22:45 Glucagon (Glucagen) 1 mg Q15M PRN IM DECREASED GLUCOSE; Start 09/17/16 at 22:45 Glucose (Glutose) 15 gm Q15M PRN BUCCAL DECREASED GLUCOSE; Start 09/17/16 at 22: 45 Acetaminophen (Tylenol Tab) 650 mg Q4 PRN GTB PAIN AND OR ELEVATED TEMP Last administered on 09/23/16 00:59; Admin Dose 650 MG; Start 09/18/16 at 11:30 Albuterol (Proventil 0.083% (Neb)) 2.5 mg Q3H PRN NEB WHEEZING AND SOB; Start 09/18/16 at 11:30 Ascorbic Acid (Vitamin C) 500 mg BID PO Last administered on 10/04/16 09:11; Admin Dose 500 MG; Start 09/18/16 at 21:00 Folic Acid (Folic Acid) 1 mg DAILY GTB Last administered on 10/04/16 09:12; Admin Dose 1 MG; Start 09/19/16 at 09:00 Hydroxyzine HCl (Atarax) 25 mg Q8H PRN PO ITCHING Last administered on 21:23; Admin Dose 25 MG; Start 09/18/16 at 11:30 Lorazepam (Ativan) 1 mg Q8 PRN GTB ANXIETY Last administered on 09/22/16 09:17 ; Admin Dose 1 MG; Start 09/18/16 at 11:30 Magnesium Hydroxide (Milk Of Mag) 30 ml DAILY PRN GTB CONSTIPATION Last administered on 09/23/16 17:19; Admin Dose 30 ML; Start 09/18/16 at 11:30 Sodium Biphosphate/ Sodium Phosphate (Fleet Enema Pediatric) 66.6 ml DAILY PRN MA CONSTIPATION; Start 09/18/16 at 11:30 Lactobacillus Acidophilus/ Rhamnosus (Culturelle) 1 cap BID PO Last administered on 10/04/16 09:11; Admin Dose 1 CAP; Start 09/18/16 at 21:00 Morphine Sulfate (morphine) 2 mg Q4H PRN IV PAIN LEVEL 7-10 Last administered on 09/30/16 12:49; Admin Dose 2 MG; Start 09/19/16 at 11:30 Lorazepam (Ativan) 1 mg Q6H PRN IV ANXIETY Last administered on 09/28/16 01:48 ; Admin Dose 1 MG; Start 09/19/16 at 18:30 Midodrine (Proamatine) 5 mg TID GTB Last administered on 10/04/16 09:11; Admin Dose 5 MG; Start 09/21/16 at 06:00 Ferrous Sulfate (Ferrous Sulfate (Ec)) 325 mg TID PO Last administered on 09:12; Admin Dose 325 MG; Start 09/21/16 at 10:00 Multivitamins 30 ml 30 ml DAILY GTB Last administered on 10/04/16 09:11; Admin Dose 30 ML; Start 09/21/16 at 10:30 Vancomycin HCl (Vancocin) 250 ml @ 125 mls/hr Q5D IVPB Last administered on 22:00; Admin Dose 125 MLS/HR; Start 09/21/16 at 22:00 Bacitracin (Bacitracin Oint (Ud)) 1 applic BID TOP Last administered on 09:11; Admin Dose 1 APPLIC; Start 09/23/16 at 21:00 Metoclopramide HCl 10 mg 10 mg Q6 IV Last administered on 10/04/16 05:28; Admin Dose 10 MG; Start 09/24/16 at 18:00 Norepinephrine/ Dextrose (Levophed/D5W) 500 ml @ 1.87 mls/hr TITRATE IV Last administered on 10/04/16 00:17; Admin Dose 45 MLS/HR; Start 09/25/16 at 07:00; Status Future hold IV Flush 10 ml 10 ml PRN PRN IV IV PROTOCOL; Start 09/25/16 at 16:00 Meropenem/Sodium Chloride (Merrem 500mg/50 ml(Pmx)) 50 ml @ 200 mls/hr Q12 IVPB Last administered on 10/04/16 09:10; Admin Dose 200 MLS/HR; Start at 21:00 Lansoprazole (Prevacid) 30 mg DAILY@06 GTB Last administered on 10/04/16 05:27 ; Admin Dose 30 MG; Start 09/28/16 at 06:00 Bumetanide 1 mg 1 mg DAILY IV Last administered on 09/30/16 08:32; Admin Dose 1 MG; Start 09/30/16 at 09:00; Status Future Hold Metronidazole (Flagyl 500 Mg (Pmx)) 100 ml @ 100 mls/hr Q8 IVPB Last administered on 10/04/16 05:33; Admin Dose 100 MLS/HR; Start 09/30/16 at 14:30 Insulin Aspart NOVOLOG *MODERATE* ALGORI... Q4 SC Last administered on 20:35; Admin Dose 4 UNIT; Start 09/30/16 at 17:00 Vasopressin/ Dextrose (Vasostrict/D5W) 60 ml @ 1.2 mls/hr Q12H IV ; Start 10/01 at 11:00 Polyethylene Glycol (Miralax) 17 gm DAILY PEG Last administered on 10/04/16 09 :11; Admin Dose 17 GM; Start 10/03/16 at 11:30 Lactulose (Enulose) 20 gm Q8 PO Last administered on 10/04/16 05:28; Admin Dose 20 GM; Start 10/03/16 at 14:00 Insulin Detemir (Levemir) 30 unit HS SC ; Start 10/04/16 at 21:00 Rifaximin (Xifaxan) 550 mg BID PO Last administered on 10/04/16 09:10; Admin Dose 550 MG; Start 10/04/16 at 09:00 Lactulose (Lactulose Enema) 100 ml Q6 MA ; Start 10/04/16 at 12:00 RAMON COWAN Oct 04, 2016 10:22
--- NOTE | 2016-10-04 10:51 | PN ---
Date/Time of Note Date/Time of Note DATE: 10/04/16 TIME: 10:50 Assessment/Plan VTE Prophylaxis VTE Prophylaxis Intervention: other Lines/Catheters IV Catheter Type (from Nrs): PICC Line Central line still needed: Yes Urinary Cath still in place: Yes Reason Cath still needed: urinary retention Assessment/Plan Chief Complaint/Hosp Course renal follow up SUBJECTIVE DATA: Patient remains in ICU, but stable. No other events noted. No hemoptysis, hematemesis, hematochezia. discussed with family at the bedside s/p paracentesis ([id number]) OBJECTIVE DATA: HEENT: Head is normocephalic. NECK: Supple. HEART: Regular rate. LUNGS: Diminished breath sounds at the base. ABDOMEN: Soft, nontender to palpation. No rebound or guarding. EXTREMITIES: Negative for clubbing, cyanosis. Positive edema. DERMATOLOGIC: No rashes. MUSCULOSKELETAL: No joint effusion. NEUROLOGIC: No change in exam. MEDICATIONS: Reviewed. 1. Oliguric acute kidney injury on top of chronic kidney disease stage IIIB/IV. Etiology of acute kidney injury secondary to sepsis and acute tubular necrosis. She is volume overloaded and has pulm edema. 2. Chronic kidney disease, etiology multifactorial. 3. Sepsis, status post shock. The patient is currently off pressor support. Continue antibiotic therapy. Continue gentle volume expansion. Follow up cultures. 4. Mineral bone disorder. Continue to monitor calcium and phosphorus levels. 5. Metabolic acidosis secondary to acute kidney injury. 6. Hypokalemia. Repleted. 7. Anemia. Monitor H and H levels dc epogen 8. Ventilatory-dependent respiratory failure. Vent settings reviewed. ABGs reviewed. Continue to monitor. 9. History of cardiomyopathy. Continue current treatment plan. 10. Dysphagia, status post percutaneous endoscopic gastrostomy. 11. Muscular dystrophy. 12. Acute on chronic congestive heart failure exacerbation. Continue current medical management. Problems: Exam/Review of Systems Vital Signs Vitals Vital Signs Date Time Temp Pulse Resp B/P Pulse Ox O2 Delivery O2 Flow Rate FiO2 10/04/16 10:30 60 24 94/54 98 10/04/16 10:00 Mechanical Ventilator 10/04/16 08:00 97.9 10/04/16 05:53 30 Intake and Output 10/03/16 10/03/16 10/04/16 15:00 23:00 07:00 Intake Total 617.50 ml 415 ml Output Total 355 ml 75 ml Balance 262.50 ml 340 ml Results Result Diagram: 10/04/16 0500 10/04/16 0500 Results 24 hrs Laboratory Tests Test 10/03/16 11:40 10/03/16 12:28 10/03/16 20:30 10/04/16 01:01 Ammonia 59 H Bedside Glucose 148 194 106 Test 10/04/16 05:00 10/04/16 05:26 10/04/16 06:20 10/04/16 09:05 White Blood Count 11.7 H Red Blood Count 3.59 L Hemoglobin 10.1 L Hematocrit 33.8 L Mean Corpuscular Volume 94.2 Mean Corpuscular Hemoglobin 28.1 L Mean Corpuscular Hemoglobin Concent 29.9 L Red Cell Distribution Width 20.2 H Platelet Count 379 Mean Platelet Volume 9.5 Neutrophils % 74.1 Lymphocytes % 7.9 L Monocytes % 6.2 Eosinophils % 9.8 H Basophils % 0.8 Nucleated Red Blood Cells % 0.3 H Neutrophils # (Manual) 9 H Lymphocytes # 0.9 Monocytes # 0.7 Eosinophils # 1.1 H Basophils # 0.1 Nucleated Red Blood Cells # 0.0 Sodium Level 133 L Potassium Level 4.4 Chloride Level 100 Carbon Dioxide Level 16 L Anion Gap 21 H Blood Urea Nitrogen 87 H Creatinine 0.89 Glucose Level 49 #*L Lactic Acid Level 1.2 Calcium Level 9.1 Ammonia 95 #H Bedside Glucose 64 L 89 58 L Test 10/04/16 09:30 10/04/16 09:51 Bedside Glucose 103 81 Medications Medications Current Medications Ondansetron HCl (Zofran Inj) 4 mg Q6H PRN IV NAUSEA AND/OR VOMITING Last administered on 09/24/16 11:53; Admin Dose 4 MG; Start 09/15/16 at 06:30 Acetaminophen (Tylenol Tab) 650 mg Q6H PRN PO PAIN LEVEL 1-3 OR FEVER Last administered on 09/16/16 20:10; Admin Dose 650 MG; Start 09/15/16 at 06:30 Acetaminophen (Tylenol Supp) 650 mg Q6H PRN NM PAIN LEVEL 1-3 OR FEVER; Start 09/15/16 at 06:30 Amiodarone HCl (Cordarone) 200 mg DAILY GTB Last administered on 10/04/16 09: 11; Admin Dose 200 MG; Start 09/15/16 at 09:00 Bisacodyl (Dulcolax Supp) 10 mg Q24H PRN NM CONSTIPATION Last administered on 22:12; Admin Dose 10 MG; Start 09/15/16 at 06:30 Chlorhexidine Gluconate (Peridex) 15 ml BID MM Last administered on 10/04/16 09:11; Admin Dose 15 ML; Start 09/15/16 at 09:00 Docusate Sodium (Colace) 200 mg QHS PRN PO CONSTIPATION; Start 09/15/16 at 06:30 Lisinopril (Zestril) 2.5 mg BID GTB Last administered on 09/15/16 09:24; Admin Dose 2.5 MG; Start 09/15/16 at 09:00; Status Future Hold Diphenhydramine HCl (Benadryl) 25 mg Q6H PRN IV ITCHING Last administered on 13:56; Admin Dose 25 MG; Start 09/15/16 at 21:00 Tramadol HCl (Ultram) 50 mg Q6H PRN GTB PAIN LEVEL 6-10 Last administered on 21:23; Admin Dose 50 MG; Start 09/17/16 at 12:00 Miscellaneous Information 1 ea NOTE XX ; Start 09/17/16 at 12:00 Miscellaneous Information 1 ea NOTE XX ; Start 09/17/16 at 22:45 Glucose (Glutose) 15 gm Q15M PRN PO DECREASED GLUCOSE; Start 09/17/16 at 22:45 Glucose (Glutose) 22.5 gm Q15M PRN PO DECREASED GLUCOSE; Start 09/17/16 at 22:45 Dextrose (D50w Syringe) 25 ml Q15M PRN IV DECREASED GLUCOSE Last administered on 10/04/16 09:13; Admin Dose 25 ML; Start 09/17/16 at 22:45 Dextrose (D50w Syringe) 50 ml Q15M PRN IV DECREASED GLUCOSE; Start 09/17/16 at 22:45 Glucagon (Glucagen) 1 mg Q15M PRN IM DECREASED GLUCOSE; Start 09/17/16 at 22:45 Glucose (Glutose) 15 gm Q15M PRN BUCCAL DECREASED GLUCOSE; Start 09/17/16 at 22: 45 Acetaminophen (Tylenol Tab) 650 mg Q4 PRN GTB PAIN AND OR ELEVATED TEMP Last administered on 09/23/16 00:59; Admin Dose 650 MG; Start 09/18/16 at 11:30 Albuterol (Proventil 0.083% (Neb)) 2.5 mg Q3H PRN NEB WHEEZING AND SOB; Start 09/18/16 at 11:30 Ascorbic Acid (Vitamin C) 500 mg BID PO Last administered on 10/04/16 09:11; Admin Dose 500 MG; Start 09/18/16 at 21:00 Folic Acid (Folic Acid) 1 mg DAILY GTB Last administered on 10/04/16 09:12; Admin Dose 1 MG; Start 09/19/16 at 09:00 Hydroxyzine HCl (Atarax) 25 mg Q8H PRN PO ITCHING Last administered on 21:23; Admin Dose 25 MG; Start 09/18/16 at 11:30 Lorazepam (Ativan) 1 mg Q8 PRN GTB ANXIETY Last administered on 09/22/16 09:17 ; Admin Dose 1 MG; Start 09/18/16 at 11:30 Magnesium Hydroxide (Milk Of Mag) 30 ml DAILY PRN GTB CONSTIPATION Last administered on 09/23/16 17:19; Admin Dose 30 ML; Start 09/18/16 at 11:30 Sodium Biphosphate/ Sodium Phosphate (Fleet Enema Pediatric) 66.6 ml DAILY PRN NM CONSTIPATION; Start 09/18/16 at 11:30 Lactobacillus Acidophilus/ Rhamnosus (Culturelle) 1 cap BID PO Last administered on 10/04/16 09:11; Admin Dose 1 CAP; Start 09/18/16 at 21:00 Morphine Sulfate (morphine) 2 mg Q4H PRN IV PAIN LEVEL 7-10 Last administered on 09/30/16 12:49; Admin Dose 2 MG; Start 09/19/16 at 11:30 Lorazepam (Ativan) 1 mg Q6H PRN IV ANXIETY Last administered on 09/28/16 01:48 ; Admin Dose 1 MG; Start 09/19/16 at 18:30 Midodrine (Proamatine) 5 mg TID GTB Last administered on 10/04/16 09:11; Admin Dose 5 MG; Start 09/21/16 at 06:00 Ferrous Sulfate (Ferrous Sulfate (Ec)) 325 mg TID PO Last administered on 09:12; Admin Dose 325 MG; Start 09/21/16 at 10:00 Multivitamins 30 ml 30 ml DAILY GTB Last administered on 10/04/16 09:11; Admin Dose 30 ML; Start 09/21/16 at 10:30 Vancomycin HCl (Vancocin) 250 ml @ 125 mls/hr Q5D IVPB Last administered on 22:00; Admin Dose 125 MLS/HR; Start 09/21/16 at 22:00 Bacitracin (Bacitracin Oint (Ud)) 1 applic BID TOP Last administered on 09:11; Admin Dose 1 APPLIC; Start 09/23/16 at 21:00 Metoclopramide HCl 10 mg 10 mg Q6 IV Last administered on 10/04/16 05:28; Admin Dose 10 MG; Start 09/24/16 at 18:00 Norepinephrine/ Dextrose (Levophed/D5W) 500 ml @ 1.87 mls/hr TITRATE IV Last administered on 10/04/16 00:17; Admin Dose 45 MLS/HR; Start 09/25/16 at 07:00; Status Future hold IV Flush 10 ml 10 ml PRN PRN IV IV PROTOCOL; Start 09/25/16 at 16:00 Meropenem/Sodium Chloride (Merrem 500mg/50 ml(Pmx)) 50 ml @ 200 mls/hr Q12 IVPB Last administered on 10/04/16 09:10; Admin Dose 200 MLS/HR; Start at 21:00 Lansoprazole (Prevacid) 30 mg DAILY@06 GTB Last administered on 10/04/16 05:27 ; Admin Dose 30 MG; Start 09/28/16 at 06:00 Bumetanide 1 mg 1 mg DAILY IV Last administered on 09/30/16 08:32; Admin Dose 1 MG; Start 09/30/16 at 09:00; Status Future Hold Metronidazole (Flagyl 500 Mg (Pmx)) 100 ml @ 100 mls/hr Q8 IVPB Last administered on 10/04/16 05:33; Admin Dose 100 MLS/HR; Start 09/30/16 at 14:30 Insulin Aspart NOVOLOG *MODERATE* ALGORI... Q4 SC Last administered on 20:35; Admin Dose 4 UNIT; Start 09/30/16 at 17:00 Vasopressin/ Dextrose (Vasostrict/D5W) 60 ml @ 1.2 mls/hr Q12H IV ; Start 10/01 at 11:00 Polyethylene Glycol (Miralax) 17 gm DAILY PEG Last administered on 10/04/16 09 :11; Admin Dose 17 GM; Start 10/03/16 at 11:30 Lactulose (Enulose) 20 gm Q8 PO Last administered on 10/04/16 05:28; Admin Dose 20 GM; Start 10/03/16 at 14:00 Insulin Detemir (Levemir) 30 unit HS SC ; Start 10/04/16 at 21:00 Rifaximin (Xifaxan) 550 mg BID PO Last administered on 10/04/16 09:10; Admin Dose 550 MG; Start 10/04/16 at 09:00 Lactulose (Lactulose Enema) 100 ml Q6 NM ; Start 10/04/16 at 12:00 ANJEL AMADOR DO Oct 04, 2016 10:50
[2016-10-04] MEDS: VASOPRESSIN 60 UNIT in DEXTROSE 5% 57 ML IV SCH ×2 (11:00→22:15)
[2016-10-04] MEDS ORDERED: NORepinephrine 8MG/250 ML (PMX 0 ML ONE (11:11)
--- NOTE | 2016-10-04 11:14 | PN ---
Date/Time of Note Date/Time of Note DATE: 10/04/16 TIME: 11:10 Assessment/Plan VTE Prophylaxis VTE Prophylaxis Intervention: SCD's Lines/Catheters IV Catheter Type (from Nrsg): PICC Line Central line still needed: Yes Urinary Cath still in place: Yes Reason Cath still needed: terminal illness/intractable pain Assessment/Plan Chief Complaint/Hosp Course Patient is a 50-year-old female with chronic trach and PEG secondary to muscular dystrophy who presents to [facility] for hypoxia and altered mental status, found to be in septic shock due to healthcare associated pneumonia. Assessment and problem list Septic shock due to healthcare associated pneumonia Healthcare associated pneumonia Vent dependent respiratory failure, chronic Cardiomyopathy with ejection fraction of 30-35% with biventricular AICD A. fib and a flutter, currently not on anticoagulation, paced UTI hepatic encephalopathy Chronic anoxic encephalopathy Dysphasia Diabetes Chronic kidney disease Hypertension Lower extremity quadriplegia Anemia Pulmonary hypertension Leukocytosis Diarrhea Plan -bumex held -patient's mentation improved, however ammonia still very high and no BM. add rifaximin and lactulose enemas, repeat ammonia. -lots of residuals and mildly distended stomach, kub ordered and found stool, scheduled miralax, already getting lactulose. May have to perform enema. -had to raise levophed overnight -Patient's sugars are labile. will now again decrease long acting. will have to adjust accordingly. -Continue antibiotics per infectious disease -Pulmonology following, appreciate recommendations -Patient had initially titrated off pressors before however after large volume paracentesis, hypotension returned and patient was resumed on Levophed. Patient also on midodrine. -Cardiology and nephrology also consulted, appreciate recommendations, patient on amiodarone for A. fib, Bumex for volume overload however may be influencing patient's blood pressure, so holding for now. -Monitor hemoglobin -Neurologic baseline currently -poor prognosis More than 35 minutes was spent on this encounter. Problems: Subjective 24 Hr Interval Summary Free Text/Dictation improved mentation since yesterday Exam/Review of Systems Vital Signs Vitals Vital Signs Date Time Temp Pulse Resp B/P Pulse Ox O2 Delivery O2 Flow Rate FiO2 10/04/16 10:30 60 24 94/54 98 10/04/16 10:00 Mechanical Ventilator 10/04/16 08:00 97.9 10/04/16 05:53 30 Intake and Output 10/03/16 10/03/16 10/04/16 15:00 23:00 07:00 Intake Total 617.50 ml 415 ml Output Total 355 ml 75 ml Balance 262.50 ml 340 ml Exam Physical exam General: Patient is laying in bed, bedbound Mentation: Patient is lethargic, but alert Head: Normocephalic atraumatic Eyes: EOMI, pupils reactive to light Neck: Supple, nontender, midline Respiratory: Coarse to auscultation bilaterally Cardiovascular: regular rate, no obvious murmurs Gastrointestinal: mildly distended. non-tender to palpation, bowel sounds heard. peg tube Neurological:lethargic, but alert Results Result Diagram: 10/04/16 0500 10/04/16 0500 Results 24 hrs Laboratory Tests Test 10/03/16 11:40 10/03/16 12:28 10/03/16 20:30 10/04/16 01:01 Ammonia 59 H Bedside Glucose 148 194 106 Test 10/04/16 05:00 10/04/16 05:26 10/04/16 06:20 10/04/16 09:05 White Blood Count 11.7 H Red Blood Count 3.59 L Hemoglobin 10.1 L Hematocrit 33.8 L Mean Corpuscular Volume 94.2 Mean Corpuscular Hemoglobin 28.1 L Mean Corpuscular Hemoglobin Concent 29.9 L Red Cell Distribution Width 20.2 H Platelet Count 379 Mean Platelet Volume 9.5 Neutrophils % 74.1 Lymphocytes % 7.9 L Monocytes % 6.2 Eosinophils % 9.8 H Basophils % 0.8 Nucleated Red Blood Cells % 0.3 H Neutrophils # (Manual) 9 H Lymphocytes # 0.9 Monocytes # 0.7 Eosinophils # 1.1 H Basophils # 0.1 Nucleated Red Blood Cells # 0.0 Sodium Level 133 L Potassium Level 4.4 Chloride Level 100 Carbon Dioxide Level 16 L Anion Gap 21 H Blood Urea Nitrogen 87 H Creatinine 0.89 Glucose Level 49 #*L Lactic Acid Level 1.2 Calcium Level 9.1 Ammonia 95 #H Bedside Glucose 64 L 89 58 L Test 10/04/16 09:30 10/04/16 09:51 Bedside Glucose 103 81 Medications Medications Current Medications Ondansetron HCl (Zofran Inj) 4 mg Q6H PRN IV NAUSEA AND/OR VOMITING Last administered on 09/24/16 11:53; Admin Dose 4 MG; Start 09/15/16 at 06:30 Acetaminophen (Tylenol Tab) 650 mg Q6H PRN PO PAIN LEVEL 1-3 OR FEVER Last administered on 09/16/16 20:10; Admin Dose 650 MG; Start 09/15/16 at 06:30 Acetaminophen (Tylenol Supp) 650 mg Q6H PRN MD PAIN LEVEL 1-3 OR FEVER; Start 09/15/16 at 06:30 Amiodarone HCl (Cordarone) 200 mg DAILY GTB Last administered on 10/04/16 09: 11; Admin Dose 200 MG; Start 09/15/16 at 09:00 Bisacodyl (Dulcolax Supp) 10 mg Q24H PRN MD CONSTIPATION Last administered on 22:12; Admin Dose 10 MG; Start 09/15/16 at 06:30 Chlorhexidine Gluconate (Peridex) 15 ml BID MM Last administered on 10/04/16 09:11; Admin Dose 15 ML; Start 09/15/16 at 09:00 Docusate Sodium (Colace) 200 mg QHS PRN PO CONSTIPATION; Start 09/15/16 at 06:30 Lisinopril (Zestril) 2.5 mg BID GTB Last administered on 09/15/16 09:24; Admin Dose 2.5 MG; Start 09/15/16 at 09:00; Status Future Hold Diphenhydramine HCl (Benadryl) 25 mg Q6H PRN IV ITCHING Last administered on 13:56; Admin Dose 25 MG; Start 09/15/16 at 21:00 Tramadol HCl (Ultram) 50 mg Q6H PRN GTB PAIN LEVEL 6-10 Last administered on 21:23; Admin Dose 50 MG; Start 09/17/16 at 12:00 Miscellaneous Information 1 ea NOTE XX ; Start 09/17/16 at 12:00 Miscellaneous Information 1 ea NOTE XX ; Start 09/17/16 at 22:45 Glucose (Glutose) 15 gm Q15M PRN PO DECREASED GLUCOSE; Start 09/17/16 at 22:45 Glucose (Glutose) 22.5 gm Q15M PRN PO DECREASED GLUCOSE; Start 09/17/16 at 22:45 Dextrose (D50w Syringe) 25 ml Q15M PRN IV DECREASED GLUCOSE Last administered on 10/04/16 09:13; Admin Dose 25 ML; Start 09/17/16 at 22:45 Dextrose (D50w Syringe) 50 ml Q15M PRN IV DECREASED GLUCOSE; Start 09/17/16 at 22:45 Glucagon (Glucagen) 1 mg Q15M PRN IM DECREASED GLUCOSE; Start 09/17/16 at 22:45 Glucose (Glutose) 15 gm Q15M PRN BUCCAL DECREASED GLUCOSE; Start 09/17/16 at 22: 45 Acetaminophen (Tylenol Tab) 650 mg Q4 PRN GTB PAIN AND OR ELEVATED TEMP Last administered on 09/23/16 00:59; Admin Dose 650 MG; Start 09/18/16 at 11:30 Albuterol (Proventil 0.083% (Neb)) 2.5 mg Q3H PRN NEB WHEEZING AND SOB; Start 09/18/16 at 11:30 Ascorbic Acid (Vitamin C) 500 mg BID PO Last administered on 10/04/16 09:11; Admin Dose 500 MG; Start 09/18/16 at 21:00 Folic Acid (Folic Acid) 1 mg DAILY GTB Last administered on 10/04/16 09:12; Admin Dose 1 MG; Start 09/19/16 at 09:00 Hydroxyzine HCl (Atarax) 25 mg Q8H PRN PO ITCHING Last administered on 21:23; Admin Dose 25 MG; Start 09/18/16 at 11:30 Lorazepam (Ativan) 1 mg Q8 PRN GTB ANXIETY Last administered on 09/22/16 09:17 ; Admin Dose 1 MG; Start 09/18/16 at 11:30 Magnesium Hydroxide (Milk Of Mag) 30 ml DAILY PRN GTB CONSTIPATION Last administered on 09/23/16 17:19; Admin Dose 30 ML; Start 09/18/16 at 11:30 Sodium Biphosphate/ Sodium Phosphate (Fleet Enema Pediatric) 66.6 ml DAILY PRN MD CONSTIPATION; Start 09/18/16 at 11:30 Lactobacillus Acidophilus/ Rhamnosus (Culturelle) 1 cap BID PO Last administered on 10/04/16 09:11; Admin Dose 1 CAP; Start 09/18/16 at 21:00 Morphine Sulfate (morphine) 2 mg Q4H PRN IV PAIN LEVEL 7-10 Last administered on 09/30/16 12:49; Admin Dose 2 MG; Start 09/19/16 at 11:30 Lorazepam (Ativan) 1 mg Q6H PRN IV ANXIETY Last administered on 09/28/16 01:48 ; Admin Dose 1 MG; Start 09/19/16 at 18:30 Midodrine (Proamatine) 5 mg TID GTB Last administered on 10/04/16 09:11; Admin Dose 5 MG; Start 09/21/16 at 06:00 Ferrous Sulfate (Ferrous Sulfate (Ec)) 325 mg TID PO Last administered on 09:12; Admin Dose 325 MG; Start 09/21/16 at 10:00 Multivitamins 30 ml 30 ml DAILY GTB Last administered on 10/04/16 09:11; Admin Dose 30 ML; Start 09/21/16 at 10:30 Vancomycin HCl (Vancocin) 250 ml @ 125 mls/hr Q5D IVPB Last administered on 22:00; Admin Dose 125 MLS/HR; Start 09/21/16 at 22:00 Bacitracin (Bacitracin Oint (Ud)) 1 applic BID TOP Last administered on 09:11; Admin Dose 1 APPLIC; Start 09/23/16 at 21:00 Metoclopramide HCl 10 mg 10 mg Q6 IV Last administered on 10/04/16 05:28; Admin Dose 10 MG; Start 09/24/16 at 18:00 Norepinephrine/ Dextrose (Levophed/D5W) 500 ml @ 1.87 mls/hr TITRATE IV Last administered on 10/04/16 00:17; Admin Dose 45 MLS/HR; Start 09/25/16 at 07:00; Status Future hold IV Flush 10 ml 10 ml PRN PRN IV IV PROTOCOL; Start 09/25/16 at 16:00 Meropenem/Sodium Chloride (Merrem 500mg/50 ml(Pmx)) 50 ml @ 200 mls/hr Q12 IVPB Last administered on 10/04/16 09:10; Admin Dose 200 MLS/HR; Start at 21:00 Lansoprazole (Prevacid) 30 mg DAILY@06 GTB Last administered on 10/04/16 05:27 ; Admin Dose 30 MG; Start 09/28/16 at 06:00 Bumetanide 1 mg 1 mg DAILY IV Last administered on 09/30/16 08:32; Admin Dose 1 MG; Start 09/30/16 at 09:00; Status Future Hold Metronidazole (Flagyl 500 Mg (Pmx)) 100 ml @ 100 mls/hr Q8 IVPB Last administered on 10/04/16 05:33; Admin Dose 100 MLS/HR; Start 09/30/16 at 14:30 Insulin Aspart NOVOLOG *MODERATE* ALGORI... Q4 SC Last administered on 20:35; Admin Dose 4 UNIT; Start 09/30/16 at 17:00 Vasopressin/ Dextrose (Vasostrict/D5W) 60 ml @ 1.2 mls/hr Q12H IV ; Start 10/01 at 11:00 Polyethylene Glycol (Miralax) 17 gm DAILY PEG Last administered on 10/04/16 09 :11; Admin Dose 17 GM; Start 10/03/16 at 11:30 Lactulose (Enulose) 20 gm Q8 PO Last administered on 10/04/16 05:28; Admin Dose 20 GM; Start 10/03/16 at 14:00 Insulin Detemir (Levemir) 30 unit HS SC ; Start 10/04/16 at 21:00 Rifaximin (Xifaxan) 550 mg BID PO Last administered on 10/04/16 09:10; Admin Dose 550 MG; Start 10/04/16 at 09:00 Lactulose (Lactulose Enema) 100 ml Q6 MD ; Start 10/04/16 at 12:00 JAIR GRANGER Oct 04, 2016 11:14
[2016-10-04 11:31] LABS: AADO2 Arterial 85.8 mmHg (7.0-24.0); Allen Test ACCEPTAB; Arterial Base Excess -11.3 mmol/L (-3.0-3); Arterial COHb 0.5 % (0.0-3.0); Arterial Fraction of Oxyhgb 95.2 % (93.0-99.0); Arterial HCO3 14.8 mmol/L (22.0-26.0); Arterial MetHb 0.2 % (0.0-1.5); Arterial Total Hemglobin 12.2 g/dl (12.0-18.0); MODE VENT - AC
[2016-10-04] MEDS: LACTULOSE ENEMA 1,000 ML BTL PR SCH ×2 (12:25→18:53)
[2016-10-04] MEDS: SODIUM BICARBONATE (IV ADD) 100 MEQ in DEXTROSE 5% 1,000 ML IV SCH (12:25)
--- NOTE | 2016-10-04 13:40 | PN ---
DATE: SUBJECTIVE: No acute changes. The patient is lethargic, on Levophed drip at 28 mcg per minute. No fevers. LABORATORY AND DIAGNOSTIC DATA: Temperature 97.9, pulse 60, respirations 24, blood pressure 88/65, saturation 98 on 30 FiO2. WBC 11.7, H and H 10.1 and 33.8, platelets 379, neutrophils 74.1, BUN 87, creatinine 0.89. Blood culture since September 26, negative, urine culture September 28 negative. INDWELLINGS: Trach, PEG, Matthew, PICC line. Antimicrobials, Flagyl, meropenem, vancomycin. PHYSICAL EXAMINATION: This is an obese chronically ill- appearing, middle-aged woman, who is lethargic, in no distress. HEENT: Head atraumatic, normocephalic. Sclerae anicteric. Buccal mucosa dry. NECK: Obese. Tracheostomy present. CHEST: Rise symmetrical. Breath sounds with scattered crackles. HEART: S1, S2. ABDOMEN: Distended, positive ascites. Bowel sounds hypoactive. EXTREMITIES: With bilateral edema. ASSESSMENT: 1. Septic shock with multisystem organ failure. 2. Healthcare-associated pneumonia. 3. Acute decompensated heart failure. 4. Cardiomyopathy. 5. Recurrent ascites, status post multiple paracentesis with a sciatic fluid. Cultures remain negative. 6. Diabetes. 7. Muscle dystrophy. 8. Status post Delia glabrata urinary tract infection. PLAN: The patient remains hemodynamically unstable and overall doing poorly. We are going to continue her on current antimicrobials. Will start empiric antifungal therapy with Cancidas. Follow recommendations of consultants. Dictated By: Anita Ingram NP /reynaldo/suzette /Document#: [id number]
--- NOTE | 2016-10-04 17:20 | RADRPT ---
PROCEDURE: Chest 1 views. CLINICAL INDICATION: Shortness of breath, pneumonia TECHNIQUE: AP views of the chest was obtained. COMPARISON: September 28, 2016 FINDINGS: The heart is large. Left-sided dual chamber, biventricular pacemaker/defibrillator has its leads ove r the heart and appears stable. Tracheostomy tube is unchanged. Central vascular congestion and in terstitial prominence is seen in both lungs. Patchy infiltrates are seen throughout both lungs and/ or combined with small to moderate pleural effusions. Right-sided PICC line is stable. The osseous structures appear grossly intact and are unchanged. IMPRESSION: Cardiomegaly . Stable central pulmonary vascular congestion and mild interstitial prominence in both lungs. Stable infiltrates throughout both lungs, combined with small to moderate pleural effusions. RPTAT: AA .Yuri Johns MD, Date Time Electronically viewed and signed by .Yuri Johns MD, on 10/04/2016 17:20 .P/
[2016-10-04] MEDS: INSULIN DETEMIR [LEVEMIR] 3ML CART SC SCH (21:00)
[2016-10-05] VITALS (101 sets, daily range): BP systolic 65–111; BP diastolic 23–92; PULSE 59–120; RESP 15–24
[2016-10-05] MEDS: INSULIN ASPART [NOVOLOG] 3 ML PEN SC SCH ×7 (01:00→21:47)
[2016-10-05] MEDS: LACTULOSE ENEMA 1,000 ML BTL PR SCH ×5 (01:01→23:51)
[2016-10-05] MEDS: METOCLOPRAMIDE 10 MG INJ IV SCH ×5 (01:01→23:51)
[2016-10-05] MEDS: ALBUTEROL 18 GM INHALER INH SCH ×6 (01:34→21:36)
[2016-10-05 04:49] LABS: BASOPHIL # 0.1 10^3/ul (0.0-0.1); BASOPHILS % 0.6 % (0.0-2.0); EOSINOPHILS # 1.2 10^3/ul (0.0-0.5); EOSINOPHILS % 9.9 % (0.0-7.0); HEMOGLOBIN 10.3 g/dl (12.0-16.0); LYMPHOCYTES # 0.7 10^3/ul (0.8-2.9); MEAN CORPUSCULAR HEMOGLOBIN 28.4 pg (29.0-33.0); MEAN CORPUSCULAR HGB CONC 30.3 g/dl (32.0-37.0); MEAN CORPUSCULAR VOLUME 93.7 fl (82.0-101.0); MEAN PLATELET VOLUME 9.6 fl (7.4-10.4); MONOCYTE # 0.6 10^3/ul (0.3-0.9); MONOCYTES % 5.3 % (0.0-11.0); NEUTROPHILS % 77.4 % (39.0-77.0); NUCLEATED RED BLOOD CELLS% 0.2 /100WBC (0.0-0.0); PLATELET COUNT 347 10^3/UL (140-415); RED BLOOD COUNT 3.63 10^6/ul (4.20-5.40); RED CELL DISTRIBUTION WIDTH 19.9 % (11.5-14.5); WHITE BLOOD COUNT 11.9 10^3/ul (4.8-10.8)
[2016-10-05] MEDS: LACTULOSE 30ML CUP PO SCH ×3 (05:26→22:15)
[2016-10-05] MEDS: LANSOPRAZOLE 30 MG CAP GTB SCH (05:26)
[2016-10-05] MEDS: metroNIDAZOLE 500 MG/NS (PMX) 100 ML IVPB SCH ×3 (05:27→22:15)
[2016-10-05 05:33] LABS: ALBUMIN 2.9 g/dl (3.3-4.9); ALBUMIN/GLOBULIN RATIO 0.87; BILIRUBIN,DIRECT 0.3 mg/dl (0.00-0.20); BILIRUBIN,TOTAL 0.3 mg/dl (0.2-1.3); CALCIUM 8.8 mg/dl (8.4-10.2); CREATININE 0.91 mg/dl (0.44-1.00); TOTAL PROTEIN 6.2 g/dl (6.1-8.1)
--- NOTE | 2016-10-05 08:24 | CONS ---
Date/Time of Note Date/Time of Note DATE: 10/05/16 TIME: 08:22 Assessment/Plan Assessment/Plan Chief Complaint/Hosp Course Shock - likely multifactorial, at least partially cardiogenic Healthcare-associated pneumonia - on antibiotics Acute on chronic systolic heart failure: grossly decompensated Cardiomyopathy, LVEF 20-25% - unclear etiology, unclear if patient has ever had ischemic workup, possibly due to muscular dystrophy Acute kidney injury on chronic kidney disease: resolved Chronic ventilator-dependent respiratory failure Muscular dystrophy Paroxysmal atrial fibrillation and atrial flutter History of ventricular tachycardia (Torsades de pointes) - status post Bi-V ICD upgrade January 2015 (Brain in Hand) Diabetes mellitus Anemia of chronic disease History of right lower extremity deep vein thrombosis Severe peripheral arterial disease - prior CT LE angio with evidence of [employer] SFA and severe disease of popliteal - Levophed to keep SBP >90 -restart bumex at 1mg IV BID -will consider dobutamine drip over next few days depending on clinical response - continue amiodarone 200mg daily -overall poor prognosis Problems: Consultation Date/Type/Reason Admit Date/Time Sep 15, 2016 at 01:59 Initial Consult Date 09/18/16 Type of Consultation: Pulmonary/critical care Exam/Review of Systems Vital Signs Vitals Vital Signs Date Time Temp Pulse Resp B/P Pulse Ox O2 Delivery O2 Flow Rate FiO2 10/05/16 08:02 60 24 98 30 10/05/16 06:30 69/54 10/05/16 06:00 Mechanical Ventilator 10/05/16 04:00 97.9 Intake and Output 10/04/16 10/04/16 10/05/16 14:59 22:59 06:59 Intake Total 627.48 ml 1166.84 ml Output Total 215 ml 130 ml Balance 412.48 ml 1036.84 ml Results Result Diagram: 10/05/16 0400 10/05/16 0400 Results 24 hrs Laboratory Tests Test 10/04/16 09:05 10/04/16 09:30 10/04/16 09:51 10/04/16 10:24 Bedside Glucose 58 L 103 81 Blood Gas Specimen Source Blood arterial Arterial Blood Date Drawn 10/04/2016 11:17:55 AM Arterial Blood pH (Temp corrected) 7.258 *L Arterial Blood pCO2 (Temp correct) 33.9 L Arterial Blood pO2 (Temp corrected) 88.3 Arterial Blood HCO3 14.8 L Arterial Blood Base Excess -11.3 L Arterial Blood Oxygen Saturation 95.9 Chad Test ACCEPTAB Arterial Blood Gas Puncture Site Left Radial Arterial Blood Carboxyhemoglobin 0.5 Arterial Blood Methemoglobin 0.2 Blood Gas A-a O2 Differential 85.8 H Oxyhemoglobin Percent 95.2 Total Hemoglobin 12.2 Blood Gas Temperature 37.0 Blood Gas Respiration Rate 24.0 Blood Gas Actual Respiration Rate 24 Blood Gas Modality VENT - AC FiO2 30.0 Blood Gas Tidal Volume 550.0 Blood Gas Low PEEP Setting 5.0 Blood Gas Critical Value Read Back MARLENA ARROYO Blood Gas Notified Whom AT Blood Gas Notified Time 10/04/2016 11:30:21 AM Test 10/04/16 12:18 10/04/16 12:43 10/04/16 13:02 10/04/16 18:50 Bedside Glucose 60 L 103 99 88 Test 10/04/16 21:23 10/05/16 01:08 10/05/16 04:00 10/05/16 06:03 Bedside Glucose 92 115 150 White Blood Count 11.9 H Red Blood Count 3.63 L Hemoglobin 10.3 L Hematocrit 34.0 L Mean Corpuscular Volume 93.7 Mean Corpuscular Hemoglobin 28.4 L Mean Corpuscular Hemoglobin Concent 30.3 L Red Cell Distribution Width 19.9 H Platelet Count 347 Mean Platelet Volume 9.6 Neutrophils % 77.4 H Lymphocytes % 6.0 L Monocytes % 5.3 Eosinophils % 9.9 H Basophils % 0.6 Nucleated Red Blood Cells % 0.2 H Neutrophils # (Manual) 9 H Lymphocytes # 0.7 L Monocytes # 0.6 Eosinophils # 1.2 H Basophils # 0.1 Nucleated Red Blood Cells # 0.0 Sodium Level 130 L Potassium Level 4.0 Chloride Level 96 L Carbon Dioxide Level 17 L Anion Gap 21 H Blood Urea Nitrogen 83 H Creatinine 0.91 Glucose Level 122 # Lactic Acid Level 1.0 Calcium Level 8.8 Total Bilirubin 0.3 Direct Bilirubin 0.30 H Indirect Bilirubin 0.0 Aspartate Amino Transf (AST/SGOT) 23 Alanine Aminotransferase (ALT/SGPT) 24 Alkaline Phosphatase 109 Ammonia 75 H Total Protein 6.2 Albumin 2.9 L Globulin 3.30 H Albumin/Globulin Ratio 0.87 Medications Medications Current Medications Ondansetron HCl (Zofran Inj) 4 mg Q6H PRN IV NAUSEA AND/OR VOMITING Last administered on 09/24/16 11:53; Admin Dose 4 MG; Start 09/15/16 at 06:30 Acetaminophen (Tylenol Tab) 650 mg Q6H PRN PO PAIN LEVEL 1-3 OR FEVER Last administered on 09/16/16 20:10; Admin Dose 650 MG; Start 09/15/16 at 06:30 Acetaminophen (Tylenol Supp) 650 mg Q6H PRN ME PAIN LEVEL 1-3 OR FEVER; Start 09/15/16 at 06:30 Amiodarone HCl (Cordarone) 200 mg DAILY GTB Last administered on 10/04/16 09: 11; Admin Dose 200 MG; Start 09/15/16 at 09:00 Bisacodyl (Dulcolax Supp) 10 mg Q24H PRN ME CONSTIPATION Last administered on 22:12; Admin Dose 10 MG; Start 09/15/16 at 06:30 Chlorhexidine Gluconate (Peridex) 15 ml BID MM Last administered on 10/04/16 21:10; Admin Dose 15 ML; Start 09/15/16 at 09:00 Docusate Sodium (Colace) 200 mg QHS PRN PO CONSTIPATION; Start 09/15/16 at 06:30 Lisinopril (Zestril) 2.5 mg BID GTB Last administered on 09/15/16 09:24; Admin Dose 2.5 MG; Start 09/15/16 at 09:00; Status Future Hold Diphenhydramine HCl (Benadryl) 25 mg Q6H PRN IV ITCHING Last administered on 13:56; Admin Dose 25 MG; Start 09/15/16 at 21:00 Tramadol HCl (Ultram) 50 mg Q6H PRN GTB PAIN LEVEL 6-10 Last administered on 21:23; Admin Dose 50 MG; Start 09/17/16 at 12:00 Miscellaneous Information 1 ea NOTE XX ; Start 09/17/16 at 12:00 Miscellaneous Information 1 ea NOTE XX ; Start 09/17/16 at 22:45 Glucose (Glutose) 15 gm Q15M PRN PO DECREASED GLUCOSE; Start 09/17/16 at 22:45 Glucose (Glutose) 22.5 gm Q15M PRN PO DECREASED GLUCOSE; Start 09/17/16 at 22:45 Dextrose (D50w Syringe) 25 ml Q15M PRN IV DECREASED GLUCOSE Last administered on 10/04/16 12:26; Admin Dose 25 ML; Start 09/17/16 at 22:45 Dextrose (D50w Syringe) 50 ml Q15M PRN IV DECREASED GLUCOSE; Start 09/17/16 at 22:45 Glucagon (Glucagen) 1 mg Q15M PRN IM DECREASED GLUCOSE; Start 09/17/16 at 22:45 Glucose (Glutose) 15 gm Q15M PRN BUCCAL DECREASED GLUCOSE; Start 09/17/16 at 22: 45 Acetaminophen (Tylenol Tab) 650 mg Q4 PRN GTB PAIN AND OR ELEVATED TEMP Last administered on 09/23/16 00:59; Admin Dose 650 MG; Start 09/18/16 at 11:30 Albuterol (Proventil 0.083% (Neb)) 2.5 mg Q3H PRN NEB WHEEZING AND SOB; Start 09/18/16 at 11:30 Ascorbic Acid (Vitamin C) 500 mg BID PO Last administered on 10/04/16 21:10; Admin Dose 500 MG; Start 09/18/16 at 21:00 Folic Acid (Folic Acid) 1 mg DAILY GTB Last administered on 10/04/16 09:12; Admin Dose 1 MG; Start 09/19/16 at 09:00 Hydroxyzine HCl (Atarax) 25 mg Q8H PRN PO ITCHING Last administered on 21:23; Admin Dose 25 MG; Start 09/18/16 at 11:30 Lorazepam (Ativan) 1 mg Q8 PRN GTB ANXIETY Last administered on 09/22/16 09:17 ; Admin Dose 1 MG; Start 09/18/16 at 11:30 Magnesium Hydroxide (Milk Of Mag) 30 ml DAILY PRN GTB CONSTIPATION Last administered on 09/23/16 17:19; Admin Dose 30 ML; Start 09/18/16 at 11:30 Sodium Biphosphate/ Sodium Phosphate (Fleet Enema Pediatric) 66.6 ml DAILY PRN ME CONSTIPATION; Start 09/18/16 at 11:30 Lactobacillus Acidophilus/ Rhamnosus (Culturelle) 1 cap BID PO Last administered on 10/04/16 21:10; Admin Dose 1 CAP; Start 09/18/16 at 21:00 Morphine Sulfate (morphine) 2 mg Q4H PRN IV PAIN LEVEL 7-10 Last administered on 09/30/16 12:49; Admin Dose 2 MG; Start 09/19/16 at 11:30 Lorazepam (Ativan) 1 mg Q6H PRN IV ANXIETY Last administered on 09/28/16 01:48 ; Admin Dose 1 MG; Start 09/19/16 at 18:30 Midodrine (Proamatine) 5 mg TID GTB Last administered on 10/04/16 21:10; Admin Dose 5 MG; Start 09/21/16 at 06:00 Ferrous Sulfate (Ferrous Sulfate (Ec)) 325 mg TID PO Last administered on 21:10; Admin Dose 325 MG; Start 09/21/16 at 10:00 Multivitamins 30 ml 30 ml DAILY GTB Last administered on 10/04/16 09:11; Admin Dose 30 ML; Start 09/21/16 at 10:30 Vancomycin HCl (Vancocin) 250 ml @ 125 mls/hr Q5D IVPB Last administered on 22:00; Admin Dose 125 MLS/HR; Start 09/21/16 at 22:00 Bacitracin (Bacitracin Oint (Ud)) 1 applic BID TOP Last administered on 21:10; Admin Dose 1 APPLIC; Start 09/23/16 at 21:00 Metoclopramide HCl 10 mg 10 mg Q6 IV Last administered on 10/05/16 05:26; Admin Dose 10 MG; Start 09/24/16 at 18:00 Norepinephrine/ Dextrose (Levophed/D5W) 500 ml @ 1.87 mls/hr TITRATE IV Last administered on 10/05/16 03:42; Admin Dose 1.87 MLS/HR; Start 09/25/16 at 07:00 ; Status Future hold IV Flush 10 ml 10 ml PRN PRN IV IV PROTOCOL; Start 09/25/16 at 16:00 Meropenem/Sodium Chloride (Merrem 500mg/50 ml(Pmx)) 50 ml @ 200 mls/hr Q12 IVPB Last administered on 10/04/16 21:10; Admin Dose 200 MLS/HR; Start at 21:00 Lansoprazole (Prevacid) 30 mg DAILY@06 GTB Last administered on 10/05/16 05:26 ; Admin Dose 30 MG; Start 09/28/16 at 06:00 Bumetanide 1 mg 1 mg DAILY IV Last administered on 09/30/16 08:32; Admin Dose 1 MG; Start 09/30/16 at 09:00; Status Future Hold Metronidazole (Flagyl 500 Mg (Pmx)) 100 ml @ 100 mls/hr Q8 IVPB Last administered on 10/05/16 05:27; Admin Dose 100 MLS/HR; Start 09/30/16 at 14:30 Insulin Aspart NOVOLOG *MODERATE* ALGORI... Q4 SC Last administered on 06:13; Admin Dose 2 UNIT; Start 09/30/16 at 17:00 Vasopressin/ Dextrose (Vasostrict/D5W) 60 ml @ 1.2 mls/hr Q12H IV ; Start 10/01 at 11:00 Polyethylene Glycol (Miralax) 17 gm DAILY PEG Last administered on 10/04/16 09 :11; Admin Dose 17 GM; Start 10/03/16 at 11:30 Lactulose (Enulose) 20 gm Q8 PO Last administered on 10/05/16 05:26; Admin Dose 20 GM; Start 10/03/16 at 14:00 Insulin Detemir (Levemir) 30 unit HS SC ; Start 10/04/16 at 21:00 Rifaximin (Xifaxan) 550 mg BID PO Last administered on 10/04/16 21:10; Admin Dose 550 MG; Start 10/04/16 at 09:00 Lactulose 100 ml 100 ml Q6 ME Last administered on 10/05/16 05:27; Admin Dose 100 ML; Start 10/04/16 at 12:00 Sodium Bicarbonate/ Dextrose (Na Bicarb/D5W) 1,100 ml @ 50 mls/hr Q22H IV Last administered on 10/04/16 12:25; Admin Dose 50 MLS/HR; Start 10/04/16 at 12 :00 GÓMEZ BURNHAM Oct 05, 2016 08:24
[2016-10-05] MEDS: VASOPRESSIN 60 UNIT in DEXTROSE 5% 57 ML IV SCH ×2 (09:04→22:13)
[2016-10-05] MEDS: MEROPENEM 500MG/50 ML (PMX) 50 ML IVPB SCH ×2 (09:17→21:17)
[2016-10-05] MEDS: CHLORHEXIDINE GLUCONATE 15 ML UD CUP MM SCH ×2 (09:17→21:17)
[2016-10-05] MEDS: FOLIC ACID 1 MG TAB GTB SCH (09:17)
[2016-10-05] MEDS: FERROUS SULFATE (EC) 325 MG TAB PO SCH ×3 (09:17→21:16)
[2016-10-05] MEDS: POLYETHYLENE GLYCOL 17 GM PACKET PEG SCH (09:17)
[2016-10-05] MEDS: ASCORBIC ACID 500 MG TAB PO SCH ×2 (09:18→21:17)
[2016-10-05] MEDS: MULTIVITAMINS 30 ML CUP GTB SCH (09:18)
[2016-10-05] MEDS: RIFAXIMIN 550 MG TAB PO SCH ×2 (09:18→21:16)
[2016-10-05] MEDS: AMIODARONE 200 MG TAB GTB SCH (09:18)
[2016-10-05] MEDS: BACITRACIN 0.9 GM OINT TOP SCH ×2 (09:18→21:17)
[2016-10-05] MEDS: LACTOBACILLUS RHAMNOSUS CAP PO SCH ×2 (09:18→21:16)
[2016-10-05] MEDS: MIDODRINE 5 MG TAB GTB SCH ×3 (09:18→21:16)
--- NOTE | 2016-10-05 09:54 | PN ---
Date/Time of Note Date/Time of Note DATE: 10/05/16 TIME: 09:52 Assessment/Plan VTE Prophylaxis VTE Prophylaxis Intervention: other Lines/Catheters [facility] Central line still needed: Yes Urinary Cath still in place: Yes Reason Cath still needed: urinary retention Assessment/Plan Chief Complaint/Hosp Course renal follow up SUBJECTIVE DATA: Patient remains in ICU, but stable. No other events noted. No hemoptysis, hematemesis, hematochezia. OBJECTIVE DATA: HEENT: Head is normocephalic. NECK: Supple. HEART: Regular rate. LUNGS: Diminished breath sounds at the base. ABDOMEN: Soft, nontender to palpation. No rebound or guarding. EXTREMITIES: Negative for clubbing, cyanosis. Positive edema. DERMATOLOGIC: No rashes. MUSCULOSKELETAL: No joint effusion. NEUROLOGIC: No change in exam. MEDICATIONS: Reviewed. 1. Oliguric acute kidney injury on top of chronic kidney disease stage IIIB/IV. Etiology of acute kidney injury secondary to sepsis and acute tubular necrosis. She is volume overloaded and has pulm edema. will decrease free water flushes as the patient is becoming more hyponatremic ( discussed with nurse) 2. Chronic kidney disease, etiology multifactorial. 3. Sepsis, status post shock. The patient is currently off pressor support. Continue antibiotic therapy. Continue gentle volume expansion. Follow up cultures. 4. Mineral bone disorder. Continue to monitor calcium and phosphorus levels. 5. Metabolic acidosis secondary to acute kidney injury. 6. Hypokalemia. Repleted. 7. Anemia. Monitor H and H levels dc epogen 8. Ventilatory-dependent respiratory failure. Vent settings reviewed. ABGs reviewed. Continue to monitor. 9. History of cardiomyopathy. Continue current treatment plan. 10. Dysphagia, status post percutaneous endoscopic gastrostomy. 11. Muscular dystrophy. 12. Acute on chronic congestive heart failure exacerbation. Continue current medical management. Problems: Exam/Review of Systems Vital Signs Vitals Vital Signs Date Time Temp Pulse Resp B/P Pulse Ox O2 Delivery O2 Flow Rate FiO2 10/05/16 08:02 60 24 98 30 10/05/16 06:30 69/54 10/05/16 06:00 Mechanical Ventilator 10/05/16 04:00 97.9 Intake and Output 10/04/16 10/04/16 10/05/16 15:00 23:00 07:00 Intake Total 841.85 ml 952.47 ml Output Total 235 ml 110 ml Balance 606.85 ml 842.47 ml Results Result Diagram: 10/05/16 0400 10/05/16 0400 Results 24 hrs Laboratory Tests Test 10/04/16 10:24 10/04/16 12:18 10/04/16 12:43 10/04/16 13:02 Blood Gas Specimen Source Blood arterial Arterial Blood Date Drawn 10/04/2016 11:17:55 AM Arterial Blood pH (Temp corrected) 7.258 *L Arterial Blood pCO2 (Temp correct) 33.9 L Arterial Blood pO2 (Temp corrected) 88.3 Arterial Blood HCO3 14.8 L Arterial Blood Base Excess -11.3 L Arterial Blood Oxygen Saturation 95.9 Chad Test ACCEPTAB Arterial Blood Gas Puncture Site Left Radial Arterial Blood Carboxyhemoglobin 0.5 Arterial Blood Methemoglobin 0.2 Blood Gas A-a O2 Differential 85.8 H Oxyhemoglobin Percent 95.2 Total Hemoglobin 12.2 Blood Gas Temperature 37.0 Blood Gas Respiration Rate 24.0 Blood Gas Actual Respiration Rate 24 Blood Gas Modality VENT - AC FiO2 30.0 Blood Gas Tidal Volume 550.0 Blood Gas Low PEEP Setting 5.0 Blood Gas Critical Value Read Back MARLENA ARROYO Blood Gas Notified Whom AT Blood Gas Notified Time 10/04/2016 11:30:21 AM Bedside Glucose 60 L 103 99 Test 10/04/16 18:50 10/04/16 21:23 10/05/16 01:08 10/05/16 04:00 Bedside Glucose 88 92 115 White Blood Count 11.9 H Red Blood Count 3.63 L Hemoglobin 10.3 L Hematocrit 34.0 L Mean Corpuscular Volume 93.7 Mean Corpuscular Hemoglobin 28.4 L Mean Corpuscular Hemoglobin Concent 30.3 L Red Cell Distribution Width 19.9 H Platelet Count 347 Mean Platelet Volume 9.6 Neutrophils % 77.4 H Lymphocytes % 6.0 L Monocytes % 5.3 Eosinophils % 9.9 H Basophils % 0.6 Nucleated Red Blood Cells % 0.2 H Neutrophils # (Manual) 9 H Lymphocytes # 0.7 L Monocytes # 0.6 Eosinophils # 1.2 H Basophils # 0.1 Nucleated Red Blood Cells # 0.0 Sodium Level 130 L Potassium Level 4.0 Chloride Level 96 L Carbon Dioxide Level 17 L Anion Gap 21 H Blood Urea Nitrogen 83 H Creatinine 0.91 Glucose Level 122 # Lactic Acid Level 1.0 Calcium Level 8.8 Total Bilirubin 0.3 Direct Bilirubin 0.30 H Indirect Bilirubin 0.0 Aspartate Amino Transf (AST/SGOT) 23 Alanine Aminotransferase (ALT/SGPT) 24 Alkaline Phosphatase 109 Ammonia 75 H Total Protein 6.2 Albumin 2.9 L Globulin 3.30 H Albumin/Globulin Ratio 0.87 Test 10/05/16 06:03 Bedside Glucose 150 Medications Medications Current Medications Ondansetron HCl (Zofran Inj) 4 mg Q6H PRN IV NAUSEA AND/OR VOMITING Last administered on 09/24/16 11:53; Admin Dose 4 MG; Start 09/15/16 at 06:30 Acetaminophen (Tylenol Tab) 650 mg Q6H PRN PO PAIN LEVEL 1-3 OR FEVER Last administered on 09/16/16 20:10; Admin Dose 650 MG; Start 09/15/16 at 06:30 Acetaminophen (Tylenol Supp) 650 mg Q6H PRN [place] PAIN LEVEL 1-3 OR FEVER; Start 09/15/16 at 06:30 Amiodarone HCl (Cordarone) 200 mg DAILY GTB Last administered on 10/05/16 09: 18; Admin Dose 200 MG; Start 09/15/16 at 09:00 Bisacodyl (Dulcolax Supp) 10 mg Q24H PRN [place] CONSTIPATION Last administered on 22:12; Admin Dose 10 MG; Start 09/15/16 at 06:30 Chlorhexidine Gluconate (Peridex) 15 ml BID MM Last administered on 10/05/16 09:17; Admin Dose 15 ML; Start 09/15/16 at 09:00 Docusate Sodium (Colace) 200 mg QHS PRN PO CONSTIPATION; Start 09/15/16 at 06:30 Lisinopril (Zestril) 2.5 mg BID GTB Last administered on 09/15/16 09:24; Admin Dose 2.5 MG; Start 09/15/16 at 09:00; Status Future Hold Diphenhydramine HCl (Benadryl) 25 mg Q6H PRN IV ITCHING Last administered on 13:56; Admin Dose 25 MG; Start 09/15/16 at 21:00 Tramadol HCl (Ultram) 50 mg Q6H PRN GTB PAIN LEVEL 6-10 Last administered on 21:23; Admin Dose 50 MG; Start 09/17/16 at 12:00 Miscellaneous Information 1 ea NOTE XX ; Start 09/17/16 at 12:00 Miscellaneous Information 1 ea NOTE XX ; Start 09/17/16 at 22:45 Glucose (Glutose) 15 gm Q15M PRN PO DECREASED GLUCOSE; Start 09/17/16 at 22:45 Glucose (Glutose) 22.5 gm Q15M PRN PO DECREASED GLUCOSE; Start 09/17/16 at 22:45 Dextrose (D50w Syringe) 25 ml Q15M PRN IV DECREASED GLUCOSE Last administered on 10/04/16 12:26; Admin Dose 25 ML; Start 09/17/16 at 22:45 Dextrose (D50w Syringe) 50 ml Q15M PRN IV DECREASED GLUCOSE; Start 09/17/16 at 22:45 Glucagon (Glucagen) 1 mg Q15M PRN IM DECREASED GLUCOSE; Start 09/17/16 at 22:45 Glucose (Glutose) 15 gm Q15M PRN BUCCAL DECREASED GLUCOSE; Start 09/17/16 at 22: 45 Acetaminophen (Tylenol Tab) 650 mg Q4 PRN GTB PAIN AND OR ELEVATED TEMP Last administered on 09/23/16 00:59; Admin Dose 650 MG; Start 09/18/16 at 11:30 Albuterol (Proventil 0.083% (Neb)) 2.5 mg Q3H PRN NEB WHEEZING AND SOB; Start 09/18/16 at 11:30 Ascorbic Acid (Vitamin C) 500 mg BID PO Last administered on 10/05/16 09:18; Admin Dose 500 MG; Start 09/18/16 at 21:00 Folic Acid (Folic Acid) 1 mg DAILY GTB Last administered on 10/05/16 09:17; Admin Dose 1 MG; Start 09/19/16 at 09:00 Hydroxyzine HCl (Atarax) 25 mg Q8H PRN PO ITCHING Last administered on 21:23; Admin Dose 25 MG; Start 09/18/16 at 11:30 Lorazepam (Ativan) 1 mg Q8 PRN GTB ANXIETY Last administered on 09/22/16 09:17 ; Admin Dose 1 MG; Start 09/18/16 at 11:30 Magnesium Hydroxide (Milk Of Mag) 30 ml DAILY PRN GTB CONSTIPATION Last administered on 09/23/16 17:19; Admin Dose 30 ML; Start 09/18/16 at 11:30 Sodium Biphosphate/ Sodium Phosphate (Fleet Enema Pediatric) 66.6 ml DAILY PRN [place] CONSTIPATION; Start 09/18/16 at 11:30 Lactobacillus Acidophilus/ Rhamnosus (Culturelle) 1 cap BID PO Last administered on 10/05/16 09:18; Admin Dose 1 CAP; Start 09/18/16 at 21:00 Morphine Sulfate (morphine) 2 mg Q4H PRN IV PAIN LEVEL 7-10 Last administered on 09/30/16 12:49; Admin Dose 2 MG; Start 09/19/16 at 11:30 Lorazepam (Ativan) 1 mg Q6H PRN IV ANXIETY Last administered on 09/28/16 01:48 ; Admin Dose 1 MG; Start 09/19/16 at 18:30 Midodrine (Proamatine) 5 mg TID GTB Last administered on 10/05/16 09:18; Admin Dose 5 MG; Start 09/21/16 at 06:00 Ferrous Sulfate (Ferrous Sulfate (Ec)) 325 mg TID PO Last administered on 09:17; Admin Dose 325 MG; Start 09/21/16 at 10:00 Multivitamins 30 ml 30 ml DAILY GTB Last administered on 10/05/16 09:18; Admin Dose 30 ML; Start 09/21/16 at 10:30 Vancomycin HCl (Vancocin) 250 ml @ 125 mls/hr Q5D IVPB Last administered on 22:00; Admin Dose 125 MLS/HR; Start 09/21/16 at 22:00 Bacitracin (Bacitracin Oint (Ud)) 1 applic BID TOP Last administered on 09:18; Admin Dose 1 APPLIC; Start 09/23/16 at 21:00 Metoclopramide HCl 10 mg 10 mg Q6 IV Last administered on 10/05/16 05:26; Admin Dose 10 MG; Start 09/24/16 at 18:00 Norepinephrine/ Dextrose (Levophed/D5W) 500 ml @ 1.87 mls/hr TITRATE IV Last administered on 10/05/16 03:42; Admin Dose 1.87 MLS/HR; Start 09/25/16 at 07:00 ; Status Future hold IV Flush 10 ml 10 ml PRN PRN IV IV PROTOCOL; Start 09/25/16 at 16:00 Meropenem/Sodium Chloride (Merrem 500mg/50 ml(Pmx)) 50 ml @ 200 mls/hr Q12 IVPB Last administered on 10/05/16 09:17; Admin Dose 200 MLS/HR; Start at 21:00 Lansoprazole (Prevacid) 30 mg DAILY@06 GTB Last administered on 10/05/16 05:26 ; Admin Dose 30 MG; Start 09/28/16 at 06:00 Bumetanide 1 mg 1 mg DAILY IV Last administered on 09/30/16 08:32; Admin Dose 1 MG; Start 09/30/16 at 09:00; Status Future Hold Metronidazole (Flagyl 500 Mg (Pmx)) 100 ml @ 100 mls/hr Q8 IVPB Last administered on 10/05/16 05:27; Admin Dose 100 MLS/HR; Start 09/30/16 at 14:30 Insulin Aspart NOVOLOG *MODERATE* ALGORI... Q4 SC Last administered on 06:13; Admin Dose 2 UNIT; Start 09/30/16 at 17:00 Vasopressin/ Dextrose (Vasostrict/D5W) 60 ml @ 1.2 mls/hr Q12H IV Last administered on 10/05/16 09:04; Admin Dose 1.2 MLS/HR; Start 10/01/16 at 11:00 Polyethylene Glycol (Miralax) 17 gm DAILY PEG Last administered on 10/05/16 09 :17; Admin Dose 17 GM; Start 10/03/16 at 11:30 Lactulose (Enulose) 20 gm Q8 PO Last administered on 10/05/16 05:26; Admin Dose 20 GM; Start 10/03/16 at 14:00 Insulin Detemir (Levemir) 30 unit HS SC ; Start 10/04/16 at 21:00 Rifaximin (Xifaxan) 550 mg BID PO Last administered on 10/05/16 09:18; Admin Dose 550 MG; Start 10/04/16 at 09:00 Lactulose 100 ml 100 ml Q6 [place] Last administered on 10/05/16 05:27; Admin Dose 100 ML; Start 10/04/16 at 12:00 Sodium Bicarbonate/ Dextrose (Na Bicarb/D5W) 1,100 ml @ 50 mls/hr Q22H IV Last administered on 10/04/16 12:25; Admin Dose 50 MLS/HR; Start 10/04/16 at 12 :00 ANJEL AMADOR DO Oct 05, 2016 09:54
--- NOTE | 2016-10-05 10:16 | CONS ---
Date/Time of Note Date/Time of Note DATE: 10/05/16 TIME: 10:14 Assessment/Plan Assessment/Plan Additional Assessment/Plan Ventilator setting; AC of 24, tidal volume 550, PEEP of 5, 30% FiO2. Next Patient currently on Levophed at 30 mics per minute, vasopressin 0.02 U/min. Assessment and recommendations; 1. Patient admitted with severe pneumonia and sepsis with concomitant severe pulmonary edema. 2. Severe hypotension. 3. Worsening urine output. 4. Prior history of cardiac arrhythmia, status post pacemaker. 5. Poor mental status. 6. Metabolic acidosis. Continue current supportive care. Prognosis is very poor. 35 minutes of critical care time was spent evaluating the patient. Consultation Date/Type/Reason Admit Date/Time Sep 15, 2016 at 01:59 Initial Consult Date 09/16/16 Type of Consultation: Pulmonary/critical care 24 HR Interval Summary Free Text/Dictation Patient condition remains critical. With interval worsening in hypotension now requiring another pressor agent. General exam; middle-aged woman, on ventilator via tracheostomy, semi- responsive. Exam/Review of Systems Vital Signs Vitals Vital Signs Date Time Temp Pulse Resp B/P Pulse Ox O2 Delivery O2 Flow Rate FiO2 10/05/16 09:22 62 24 94 30 10/05/16 06:30 69/54 10/05/16 06:00 Mechanical Ventilator 10/05/16 04:00 97.9 Intake and Output 10/04/16 10/04/16 10/05/16 15:00 23:00 07:00 Intake Total 841.85 ml 952.47 ml Output Total 235 ml 110 ml Balance 606.85 ml 842.47 ml Exam HEENT exam; supple neck, positive JVD. No lymphadenopathy. Midline trachea. No thyromegaly. Tracheostomy in place. Pupils are midsize and reactive to light. Patient has fair dentition. Neck Chest exam; diminished breath sounds bilaterally. S1-S2 audible, no murmurs. Regular rhythm. Abdomen exam; soft, protuberant. Bowel sounds are very sluggish. No organomegaly felt. Extremities; 1+ generalized edema. HOUSECLEANER exam; patient is semi-responsive. Results Result Diagram: 10/05/16 0400 10/05/16 0400 Results 24 hrs Laboratory Tests Test 10/04/16 10:24 10/04/16 12:18 10/04/16 12:43 10/04/16 13:02 Blood Gas Specimen Source Blood arterial Arterial Blood Date Drawn 10/04/2016 11:17:55 AM Arterial Blood pH (Temp corrected) 7.258 *L Arterial Blood pCO2 (Temp correct) 33.9 L Arterial Blood pO2 (Temp corrected) 88.3 Arterial Blood HCO3 14.8 L Arterial Blood Base Excess -11.3 L Arterial Blood Oxygen Saturation 95.9 Chda Test ACCEPTAB Arterial Blood Gas Puncture Site Left Radial Arterial Blood Carboxyhemoglobin 0.5 Arterial Blood Methemoglobin 0.2 Blood Gas A-a O2 Differential 85.8 H Oxyhemoglobin Percent 95.2 Total Hemoglobin 12.2 Blood Gas Temperature 37.0 Blood Gas Respiration Rate 24.0 Blood Gas Actual Respiration Rate 24 Blood Gas Modality VENT - AC FiO2 30.0 Blood Gas Tidal Volume 550.0 Blood Gas Low PEEP Setting 5.0 Blood Gas Critical Value Read Back MARLENA ARROYO Blood Gas Notified Whom AT Blood Gas Notified Time 10/04/2016 11:30:21 AM Bedside Glucose 60 L 103 99 Test 10/04/16 18:50 10/04/16 21:23 10/05/16 01:08 10/05/16 04:00 Bedside Glucose 88 92 115 White Blood Count 11.9 H Red Blood Count 3.63 L Hemoglobin 10.3 L Hematocrit 34.0 L Mean Corpuscular Volume 93.7 Mean Corpuscular Hemoglobin 28.4 L Mean Corpuscular Hemoglobin Concent 30.3 L Red Cell Distribution Width 19.9 H Platelet Count 347 Mean Platelet Volume 9.6 Neutrophils % 77.4 H Lymphocytes % 6.0 L Monocytes % 5.3 Eosinophils % 9.9 H Basophils % 0.6 Nucleated Red Blood Cells % 0.2 H Neutrophils # (Manual) 9 H Lymphocytes # 0.7 L Monocytes # 0.6 Eosinophils # 1.2 H Basophils # 0.1 Nucleated Red Blood Cells # 0.0 Sodium Level 130 L Potassium Level 4.0 Chloride Level 96 L Carbon Dioxide Level 17 L Anion Gap 21 H Blood Urea Nitrogen 83 H Creatinine 0.91 Glucose Level 122 # Lactic Acid Level 1.0 Calcium Level 8.8 Total Bilirubin 0.3 Direct Bilirubin 0.30 H Indirect Bilirubin 0.0 Aspartate Amino Transf (AST/SGOT) 23 Alanine Aminotransferase (ALT/SGPT) 24 Alkaline Phosphatase 109 Ammonia 75 H Total Protein 6.2 Albumin 2.9 L Globulin 3.30 H Albumin/Globulin Ratio 0.87 Test 10/05/16 06:03 10/05/16 09:48 Bedside Glucose 150 205 Medications Medications Current Medications Ondansetron HCl (Zofran Inj) 4 mg Q6H PRN IV NAUSEA AND/OR VOMITING Last administered on 09/24/16 11:53; Admin Dose 4 MG; Start 09/15/16 at 06:30 Acetaminophen (Tylenol Tab) 650 mg Q6H PRN PO PAIN LEVEL 1-3 OR FEVER Last administered on 09/16/16 20:10; Admin Dose 650 MG; Start 09/15/16 at 06:30 Acetaminophen (Tylenol Supp) 650 mg Q6H PRN [place] PAIN LEVEL 1-3 OR FEVER; Start 09/15/16 at 06:30 Amiodarone HCl (Cordarone) 200 mg DAILY GTB Last administered on 10/05/16 09: 18; Admin Dose 200 MG; Start 09/15/16 at 09:00 Bisacodyl (Dulcolax Supp) 10 mg Q24H PRN [place] CONSTIPATION Last administered on 22:12; Admin Dose 10 MG; Start 09/15/16 at 06:30 Chlorhexidine Gluconate (Peridex) 15 ml BID MM Last administered on 10/05/16 09:17; Admin Dose 15 ML; Start 09/15/16 at 09:00 Docusate Sodium (Colace) 200 mg QHS PRN PO CONSTIPATION; Start 09/15/16 at 06:30 Lisinopril (Zestril) 2.5 mg BID GTB Last administered on 09/15/16 09:24; Admin Dose 2.5 MG; Start 09/15/16 at 09:00; Status Future Hold Diphenhydramine HCl (Benadryl) 25 mg Q6H PRN IV ITCHING Last administered on 13:56; Admin Dose 25 MG; Start 09/15/16 at 21:00 Tramadol HCl (Ultram) 50 mg Q6H PRN GTB PAIN LEVEL 6-10 Last administered on 21:23; Admin Dose 50 MG; Start 09/17/16 at 12:00 Miscellaneous Information 1 ea NOTE XX ; Start 09/17/16 at 12:00 Miscellaneous Information 1 ea NOTE XX ; Start 09/17/16 at 22:45 Glucose (Glutose) 15 gm Q15M PRN PO DECREASED GLUCOSE; Start 09/17/16 at 22:45 Glucose (Glutose) 22.5 gm Q15M PRN PO DECREASED GLUCOSE; Start 09/17/16 at 22:45 Dextrose (D50w Syringe) 25 ml Q15M PRN IV DECREASED GLUCOSE Last administered on 10/04/16 12:26; Admin Dose 25 ML; Start 09/17/16 at 22:45 Dextrose (D50w Syringe) 50 ml Q15M PRN IV DECREASED GLUCOSE; Start 09/17/16 at 22:45 Glucagon (Glucagen) 1 mg Q15M PRN IM DECREASED GLUCOSE; Start 09/17/16 at 22:45 Glucose (Glutose) 15 gm Q15M PRN BUCCAL DECREASED GLUCOSE; Start 09/17/16 at 22: 45 Acetaminophen (Tylenol Tab) 650 mg Q4 PRN GTB PAIN AND OR ELEVATED TEMP Last administered on 09/23/16 00:59; Admin Dose 650 MG; Start 09/18/16 at 11:30 Albuterol (Proventil 0.083% (Neb)) 2.5 mg Q3H PRN NEB WHEEZING AND SOB; Start 09/18/16 at 11:30 Ascorbic Acid (Vitamin C) 500 mg BID PO Last administered on 10/05/16 09:18; Admin Dose 500 MG; Start 09/18/16 at 21:00 Folic Acid (Folic Acid) 1 mg DAILY GTB Last administered on 10/05/16 09:17; Admin Dose 1 MG; Start 09/19/16 at 09:00 Hydroxyzine HCl (Atarax) 25 mg Q8H PRN PO ITCHING Last administered on 21:23; Admin Dose 25 MG; Start 09/18/16 at 11:30 Lorazepam (Ativan) 1 mg Q8 PRN GTB ANXIETY Last administered on 09/22/16 09:17 ; Admin Dose 1 MG; Start 09/18/16 at 11:30 Magnesium Hydroxide (Milk Of Mag) 30 ml DAILY PRN GTB CONSTIPATION Last administered on 09/23/16 17:19; Admin Dose 30 ML; Start 09/18/16 at 11:30 Sodium Biphosphate/ Sodium Phosphate (Fleet Enema Pediatric) 66.6 ml DAILY PRN [place] CONSTIPATION; Start 09/18/16 at 11:30 Lactobacillus Acidophilus/ Rhamnosus (Culturelle) 1 cap BID PO Last administered on 10/05/16 09:18; Admin Dose 1 CAP; Start 09/18/16 at 21:00 Morphine Sulfate (morphine) 2 mg Q4H PRN IV PAIN LEVEL 7-10 Last administered on 09/30/16 12:49; Admin Dose 2 MG; Start 09/19/16 at 11:30 Lorazepam (Ativan) 1 mg Q6H PRN IV ANXIETY Last administered on 09/28/16 01:48 ; Admin Dose 1 MG; Start 09/19/16 at 18:30 Midodrine (Proamatine) 5 mg TID GTB Last administered on 10/05/16 09:18; Admin Dose 5 MG; Start 09/21/16 at 06:00 Ferrous Sulfate (Ferrous Sulfate (Ec)) 325 mg TID PO Last administered on 09:17; Admin Dose 325 MG; Start 09/21/16 at 10:00 Multivitamins 30 ml 30 ml DAILY GTB Last administered on 10/05/16 09:18; Admin Dose 30 ML; Start 09/21/16 at 10:30 Vancomycin HCl (Vancocin) 250 ml @ 125 mls/hr Q5D IVPB Last administered on 22:00; Admin Dose 125 MLS/HR; Start 09/21/16 at 22:00 Bacitracin (Bacitracin Oint (Ud)) 1 applic BID TOP Last administered on 09:18; Admin Dose 1 APPLIC; Start 09/23/16 at 21:00 Metoclopramide HCl 10 mg 10 mg Q6 IV Last administered on 10/05/16 05:26; Admin Dose 10 MG; Start 09/24/16 at 18:00 Norepinephrine/ Dextrose (Levophed/D5W) 500 ml @ 1.87 mls/hr TITRATE IV Last administered on 10/05/16 03:42; Admin Dose 1.87 MLS/HR; Start 09/25/16 at 07:00 ; Status Future hold IV Flush 10 ml 10 ml PRN PRN IV IV PROTOCOL; Start 09/25/16 at 16:00 Meropenem/Sodium Chloride (Merrem 500mg/50 ml(Pmx)) 50 ml @ 200 mls/hr Q12 IVPB Last administered on 10/05/16 09:17; Admin Dose 200 MLS/HR; Start at 21:00 Lansoprazole (Prevacid) 30 mg DAILY@06 GTB Last administered on 10/05/16 05:26 ; Admin Dose 30 MG; Start 09/28/16 at 06:00 Bumetanide 1 mg 1 mg DAILY IV Last administered on 09/30/16 08:32; Admin Dose 1 MG; Start 09/30/16 at 09:00; Status Future Hold Metronidazole (Flagyl 500 Mg (Pmx)) 100 ml @ 100 mls/hr Q8 IVPB Last administered on 10/05/16 05:27; Admin Dose 100 MLS/HR; Start 09/30/16 at 14:30 Insulin Aspart NOVOLOG *MODERATE* ALGORI... Q4 SC Last administered on 10:08; Admin Dose 4 UNIT; Start 09/30/16 at 17:00 Vasopressin/ Dextrose (Vasostrict/D5W) 60 ml @ 1.2 mls/hr Q12H IV Last administered on 10/05/16 09:04; Admin Dose 1.2 MLS/HR; Start 10/01/16 at 11:00 Polyethylene Glycol (Miralax) 17 gm DAILY PEG Last administered on 10/05/16 09 :17; Admin Dose 17 GM; Start 10/03/16 at 11:30 Lactulose (Enulose) 20 gm Q8 PO Last administered on 10/05/16 05:26; Admin Dose 20 GM; Start 10/03/16 at 14:00 Insulin Detemir (Levemir) 30 unit HS SC ; Start 10/04/16 at 21:00 Rifaximin (Xifaxan) 550 mg BID PO Last administered on 10/05/16 09:18; Admin Dose 550 MG; Start 10/04/16 at 09:00 Lactulose 100 ml 100 ml Q6 [place] Last administered on 10/05/16 05:27; Admin Dose 100 ML; Start 10/04/16 at 12:00 Sodium Bicarbonate/ Dextrose (Na Bicarb/D5W) 1,100 ml @ 50 mls/hr Q22H IV Last administered on 10/04/16t 12:25; Admin Dose 50 MLS/HR; Start 10/04/16 at 12 :00 RAMON COWAN Oct 05, 2016 10:16
--- NOTE | 2016-10-05 11:18 | PN ---
Date/Time of Note Date/Time of Note DATE: 10/05/16 TIME: 11:10 Assessment/Plan VTE Prophylaxis VTE Prophylaxis Intervention: LMWH Lines/Catheters IV Catheter Type (from Nrs): PICC Line Central line still needed: Yes (Difficult iV access multiple pressors and IV fluids ) Urinary Cath still in place: Yes Reason Cath still needed: urinary retention, other (indicate) (strcit I/O ) Assessment/Plan Assessment/Plan ASSESSMENT: Septic shock due to healthcare associated pneumonia + UTI Healthcare associated pneumonia Vent dependent respiratory failure, chronic Cardiomyopathy with ejection fraction of 30-35% with biventricular AICD A. fib and a flutter, currently not on anticoagulation, paced Chronic anoxic encephalopathy with currently acute hepatic encephalopathy with high ammonia level Dysphasia s/p PEG tube Diabetes Chronic kidney disease Hypertension Lower extremity quadriplegia Anemia of chronic disease Pulmonary hypertension Plan: Continue sodium bicarbonate drip at 50 cc/hr continue ventilator care as per pulmonary lactulose enema, Rifaximin for hepatic encephalopathy on IV bumex 1 mg daily, monitor BP, lisinopril hold if SBP<110 mm hg free water flush has been changed, on IV abx meropenem and IV flagyl lovenox for DVT prophylaxis , Prevacid for GI prophylaxis appreciate pulmonayr, Nephrology and cardiology help Subjective 24 Hr Interval Summary Free Text/Dictation pt remained on Ventilator, Na still low, Cr normal made good urine outp Exam/Review of Systems Vital Signs Vitals Vital Signs Date Time Temp Pulse Resp B/P Pulse Ox O2 Delivery O2 Flow Rate FiO2 10/05/16 09:22 62 24 94 30 10/05/16 06:30 69/54 10/05/16 06:00 Mechanical Ventilator 10/05/16 04:00 97.9 Intake and Output 10/04/16 10/04/16 10/05/16 15:00 23:00 07:00 Intake Total 841.85 ml 952.47 ml Output Total 235 ml 110 ml Balance 606.85 ml 842.47 ml Exam Constitutional: non-verbal ENMT: intubated Neck: supple Respiratory: crackles/rales, diminished breath sounds, other (Bilateral Coarse BS+) Cardiovascular: nl pulses, regular rate and rhythm Gastrointestinal: distended, other (obese ), soft Extremities: normal pulses Neurological: other (sedated on ventilator ) Results Result Diagram: 10/05/160 10/05/160 Results 24 hrs Laboratory Tests Test 10/04/16 12:18 10/04/16 12:43 10/04/16 13:02 10/04/16 18:50 Bedside Glucose 60 L 103 99 88 Test 10/04/16 21:23 10/05/16 01:08 10/05/16 04:00 10/05/16 06:03 Bedside Glucose 92 115 150 White Blood Count 11.9 H Red Blood Count 3.63 L Hemoglobin 10.3 L Hematocrit 34.0 L Mean Corpuscular Volume 93.7 Mean Corpuscular Hemoglobin 28.4 L Mean Corpuscular Hemoglobin Concent 30.3 L Red Cell Distribution Width 19.9 H Platelet Count 347 Mean Platelet Volume 9.6 Neutrophils % 77.4 H Lymphocytes % 6.0 L Monocytes % 5.3 Eosinophils % 9.9 H Basophils % 0.6 Nucleated Red Blood Cells % 0.2 H Neutrophils # (Manual) 9 H Lymphocytes # 0.7 L Monocytes # 0.6 Eosinophils # 1.2 H Basophils # 0.1 Nucleated Red Blood Cells # 0.0 Sodium Level 130 L Potassium Level 4.0 Chloride Level 96 L Carbon Dioxide Level 17 L Anion Gap 21 H Blood Urea Nitrogen 83 H Creatinine 0.91 Glucose Level 122 # Lactic Acid Level 1.0 Calcium Level 8.8 Total Bilirubin 0.3 Direct Bilirubin 0.30 H Indirect Bilirubin 0.0 Aspartate Amino Transf (AST/SGOT) 23 Alanine Aminotransferase (ALT/SGPT) 24 Alkaline Phosphatase 109 Ammonia 75 H Total Protein 6.2 Albumin 2.9 L Globulin 3.30 H Albumin/Globulin Ratio 0.87 Test 10/05/16 09:48 Bedside Glucose 205 Medications Medications Current Medications Ondansetron HCl (Zofran Inj) 4 mg Q6H PRN IV NAUSEA AND/OR VOMITING Last administered on 09/24/16 11:53; Admin Dose 4 MG; Start 09/15/16 at 06:30 Acetaminophen (Tylenol Tab) 650 mg Q6H PRN PO PAIN LEVEL 1-3 OR FEVER Last administered on 09/16/16 20:10; Admin Dose 650 MG; Start 09/15/16 at 06:30 Acetaminophen (Tylenol Supp) 650 mg Q6H PRN [place] PAIN LEVEL 1-3 OR FEVER; Start 09/15/16 at 06:30 Amiodarone HCl (Cordarone) 200 mg DAILY GTB Last administered on 10/05/16 09: 18; Admin Dose 200 MG; Start 09/15/16 at 09:00 Bisacodyl (Dulcolax Supp) 10 mg Q24H PRN [place] CONSTIPATION Last administered on 22:12; Admin Dose 10 MG; Start 09/15/16 at 06:30 Chlorhexidine Gluconate (Peridex) 15 ml BID MM Last administered on 10/05/16 09:17; Admin Dose 15 ML; Start 09/15/16 at 09:00 Docusate Sodium (Colace) 200 mg QHS PRN PO CONSTIPATION; Start 09/15/16 at 06:30 Lisinopril (Zestril) 2.5 mg BID GTB Last administered on 09/15/16 09:24; Admin Dose 2.5 MG; Start 09/15/16 at 09:00; Status Future Hold Diphenhydramine HCl (Benadryl) 25 mg Q6H PRN IV ITCHING Last administered on 13:56; Admin Dose 25 MG; Start 09/15/16 at 21:00 Tramadol HCl (Ultram) 50 mg Q6H PRN GTB PAIN LEVEL 6-10 Last administered on 21:23; Admin Dose 50 MG; Start 09/17/16 at 12:00 Miscellaneous Information 1 ea NOTE XX ; Start 09/17/16 at 12:00 Miscellaneous Information 1 ea NOTE XX ; Start 09/17/16 at 22:45 Glucose (Glutose) 15 gm Q15M PRN PO DECREASED GLUCOSE; Start 09/17/16 at 22:45 Glucose (Glutose) 22.5 gm Q15M PRN PO DECREASED GLUCOSE; Start 09/17/16 at 22:45 Dextrose (D50w Syringe) 25 ml Q15M PRN IV DECREASED GLUCOSE Last administered on 10/04/16 12:26; Admin Dose 25 ML; Start 09/17/16 at 22:45 Dextrose (D50w Syringe) 50 ml Q15M PRN IV DECREASED GLUCOSE; Start 09/17/16 at 22:45 Glucagon (Glucagen) 1 mg Q15M PRN IM DECREASED GLUCOSE; Start 09/17/16 at 22:45 Glucose (Glutose) 15 gm Q15M PRN BUCCAL DECREASED GLUCOSE; Start 09/17/16 at 22: 45 Acetaminophen (Tylenol Tab) 650 mg Q4 PRN GTB PAIN AND OR ELEVATED TEMP Last administered on 09/23/16 00:59; Admin Dose 650 MG; Start 09/18/16 at 11:30 Albuterol (Proventil 0.083% (Neb)) 2.5 mg Q3H PRN NEB WHEEZING AND SOB; Start 09/18/16 at 11:30 Ascorbic Acid (Vitamin C) 500 mg BID PO Last administered on 10/05/16 09:18; Admin Dose 500 MG; Start 09/18/16 at 21:00 Folic Acid (Folic Acid) 1 mg DAILY GTB Last administered on 10/05/16 09:17; Admin Dose 1 MG; Start 09/19/16 at 09:00 Hydroxyzine HCl (Atarax) 25 mg Q8H PRN PO ITCHING Last administered on 21:23; Admin Dose 25 MG; Start 09/18/16 at 11:30 Lorazepam (Ativan) 1 mg Q8 PRN GTB ANXIETY Last administered on 09/22/16 09:17 ; Admin Dose 1 MG; Start 09/18/16 at 11:30 Magnesium Hydroxide (Milk Of Mag) 30 ml DAILY PRN GTB CONSTIPATION Last administered on 09/23/16 17:19; Admin Dose 30 ML; Start 09/18/16 at 11:30 Sodium Biphosphate/ Sodium Phosphate (Fleet Enema Pediatric) 66.6 ml DAILY PRN [place] CONSTIPATION; Start 09/18/16 at 11:30 Lactobacillus Acidophilus/ Rhamnosus (Culturelle) 1 cap BID PO Last administered on 10/05/16 09:18; Admin Dose 1 CAP; Start 09/18/16 at 21:00 Morphine Sulfate (morphine) 2 mg Q4H PRN IV PAIN LEVEL 7-10 Last administered on 09/30/16 12:49; Admin Dose 2 MG; Start 09/19/16 at 11:30 Lorazepam (Ativan) 1 mg Q6H PRN IV ANXIETY Last administered on 09/28/16 01:48 ; Admin Dose 1 MG; Start 09/19/16 at 18:30 Midodrine (Proamatine) 5 mg TID GTB Last administered on 10/05/16 09:18; Admin Dose 5 MG; Start 09/21/16 at 06:00 Ferrous Sulfate (Ferrous Sulfate (Ec)) 325 mg TID PO Last administered on 09:17; Admin Dose 325 MG; Start 09/21/16 at 10:00 Multivitamins 30 ml 30 ml DAILY GTB Last administered on 10/05/16 09:18; Admin Dose 30 ML; Start 09/21/16 at 10:30 Vancomycin HCl (Vancocin) 250 ml @ 125 mls/hr Q5D IVPB Last administered on 22:00; Admin Dose 125 MLS/HR; Start 09/21/16 at 22:00 Bacitracin (Bacitracin Oint (Ud)) 1 applic BID TOP Last administered on 09:18; Admin Dose 1 APPLIC; Start 09/23/16 at 21:00 Metoclopramide HCl 10 mg 10 mg Q6 IV Last administered on 10/05/16 05:26; Admin Dose 10 MG; Start 09/24/16 at 18:00 Norepinephrine/ Dextrose (Levophed/D5W) 500 ml @ 1.87 mls/hr TITRATE IV Last administered on 10/05/16 03:42; Admin Dose 1.87 MLS/HR; Start 09/25/16 at 07:00 ; Status Future hold IV Flush 10 ml 10 ml PRN PRN IV IV PROTOCOL; Start 09/25/16 at 16:00 Meropenem/Sodium Chloride (Merrem 500mg/50 ml(Pmx)) 50 ml @ 200 mls/hr Q12 IVPB Last administered on 10/05/16 09:17; Admin Dose 200 MLS/HR; Start at 21:00 Lansoprazole (Prevacid) 30 mg DAILY@06 GTB Last administered on 10/05/16 05:26 ; Admin Dose 30 MG; Start 09/28/16 at 06:00 Bumetanide 1 mg 1 mg DAILY IV Last administered on 09/30/16 08:32; Admin Dose 1 MG; Start 09/30/16 at 09:00; Status Future Hold Metronidazole (Flagyl 500 Mg (Pmx)) 100 ml @ 100 mls/hr Q8 IVPB Last administered on 10/05/16 05:27; Admin Dose 100 MLS/HR; Start 09/30/16 at 14:30 Insulin Aspart NOVOLOG *MODERATE* ALGORI... Q4 SC Last administered on 10:08; Admin Dose 4 UNIT; Start 09/30/16 at 17:00 Vasopressin/ Dextrose (Vasostrict/D5W) 60 ml @ 1.2 mls/hr Q12H IV Last administered on 10/05/16 09:04; Admin Dose 1.2 MLS/HR; Start 10/01/16 at 11:00 Polyethylene Glycol (Miralax) 17 gm DAILY PEG Last administered on 10/05/16 09 :17; Admin Dose 17 GM; Start 10/03/16 at 11:30 Lactulose (Enulose) 20 gm Q8 PO Last administered on 10/05/16 05:26; Admin Dose 20 GM; Start 10/03/16 at 14:00 Insulin Detemir (Levemir) 30 unit HS SC ; Start 10/04/16 at 21:00 Rifaximin (Xifaxan) 550 mg BID PO Last administered on 10/05/16 09:18; Admin Dose 550 MG; Start 10/04/16 at 09:00 Lactulose 100 ml 100 ml Q6 [place] Last administered on 10/05/16 05:27; Admin Dose 100 ML; Start 10/04/16 at 12:00 Sodium Bicarbonate/ Dextrose (Na Bicarb/D5W) 1,100 ml @ 50 mls/hr Q22H IV Last administered on 10/04/16 12:25; Admin Dose 50 MLS/HR; Start 10/04/16 at 12 :00 PAT RUSSELL MD Oct 05, 2016 11:17
[2016-10-05] MEDS: SODIUM BICARBONATE (IV ADD) 100 MEQ in DEXTROSE 5% 1,000 ML IV SCH (12:43)
--- NOTE | 2016-10-05 13:55 | CONS ---
Date/Time of Note Date/Time of Note DATE: 10/05/16 TIME: 13:53 Assessment/Plan Assessment/Plan Chief Complaint/Hosp Course Maxed on Levophed and vasopressin drips week lethargic in no distress Temperature 97.9 pulse 60 respirations 24 blood pressure 69/54 saturation 94 on 30 FiO2 WBC 11.9 H&H 10.3 and 34 platelets 347 neutrophils 77.4 BUN 83 creatinine 0.91 Blood culture since September 26, negative, urine culture September 28 negative. INDWELLINGS: Trach, PEG, Matthew, PICC line. Antimicrobials, Flagyl, meropenem, vancomycin. PHYSICAL EXAMINATION: This is an obese chronically ill- appearing, middle-aged woman, who is lethargic, in no distress. HEENT: Head atraumatic, normocephalic. Sclerae anicteric. Buccal mucosa dry. NECK: Obese. Tracheostomy present. CHEST: Rise symmetrical. Breath sounds with scattered crackles. HEART: S1, S2. ABDOMEN: Distended, positive ascites. Bowel sounds hypoactive. EXTREMITIES: With bilateral edema. ASSESSMENT: 1. Septic shock with multisystem organ failure. 2. Healthcare-associated pneumonia. 3. Acute decompensated heart failure. 4. Cardiomyopathy. 5. Recurrent ascites, status post multiple paracentesis with a sciatic fluid. Cultures remain negative. 6. Diabetes. 7. Muscle dystrophy. 8. Status post Delia glabrata urinary tract infection. PLAN: Doing poorly, hypotensive on multiple pressors, lethargic, continue present care, antibiotics, empiric antifungal coverage, follow recommendations of consultants Discussed with RN Problems: Consultation Date/Type/Reason Admit Date/Time Sep 15, 2016 at 01:59 Initial Consult Date 09/18/16 Type of Consultation: ID Exam/Review of Systems Vital Signs Vitals Vital Signs Date Time Temp Pulse Resp B/P Pulse Ox O2 Delivery O2 Flow Rate FiO2 10/05/16 13:17 60 24 94 30 10/05/16 06:30 69/54 10/05/16 06:00 Mechanical Ventilator 10/05/16 04:00 97.9 Intake and Output 10/04/16 10/04/16 10/05/16 15:00 23:00 07:00 Intake Total 841.85 ml 952.47 ml Output Total 235 ml 110 ml Balance 606.85 ml 842.47 ml Results Result Diagram: 10/05/16 0400 10/05/16 0400 Results 24 hrs Laboratory Tests Test 10/04/16 18:50 10/04/16 21:23 10/05/16 01:08 10/05/16 04:00 Bedside Glucose 88 92 115 White Blood Count 11.9 H Red Blood Count 3.63 L Hemoglobin 10.3 L Hematocrit 34.0 L Mean Corpuscular Volume 93.7 Mean Corpuscular Hemoglobin 28.4 L Mean Corpuscular Hemoglobin Concent 30.3 L Red Cell Distribution Width 19.9 H Platelet Count 347 Mean Platelet Volume 9.6 Neutrophils % 77.4 H Lymphocytes % 6.0 L Monocytes % 5.3 Eosinophils % 9.9 H Basophils % 0.6 Nucleated Red Blood Cells % 0.2 H Neutrophils # (Manual) 9 H Lymphocytes # 0.7 L Monocytes # 0.6 Eosinophils # 1.2 H Basophils # 0.1 Nucleated Red Blood Cells # 0.0 Sodium Level 130 L Potassium Level 4.0 Chloride Level 96 L Carbon Dioxide Level 17 L Anion Gap 21 H Blood Urea Nitrogen 83 H Creatinine 0.91 Glucose Level 122 # Lactic Acid Level 1.0 Calcium Level 8.8 Total Bilirubin 0.3 Direct Bilirubin 0.30 H Indirect Bilirubin 0.0 Aspartate Amino Transf (AST/SGOT) 23 Alanine Aminotransferase (ALT/SGPT) 24 Alkaline Phosphatase 109 Ammonia 75 H Total Protein 6.2 Albumin 2.9 L Globulin 3.30 H Albumin/Globulin Ratio 0.87 Test 10/05/16 06:03 10/05/16 09:48 10/05/16 12:25 Bedside Glucose 150 205 213 Medications Medications Current Medications Ondansetron HCl (Zofran Inj) 4 mg Q6H PRN IV NAUSEA AND/OR VOMITING Last administered on 09/24/16 11:53; Admin Dose 4 MG; Start 09/15/16 at 06:30 Acetaminophen (Tylenol Tab) 650 mg Q6H PRN PO PAIN LEVEL 1-3 OR FEVER Last administered on 09/16/16 20:10; Admin Dose 650 MG; Start 09/15/16 at 06:30 Acetaminophen (Tylenol Supp) 650 mg Q6H PRN [place] PAIN LEVEL 1-3 OR FEVER; Start 09/15/16 at 06:30 Amiodarone HCl (Cordarone) 200 mg DAILY GTB Last administered on 10/05/16 09: 18; Admin Dose 200 MG; Start 09/15/16 at 09:00 Bisacodyl (Dulcolax Supp) 10 mg Q24H PRN [place] CONSTIPATION Last administered on 22:12; Admin Dose 10 MG; Start 09/15/16 at 06:30 Chlorhexidine Gluconate (Peridex) 15 ml BID MM Last administered on 10/05/16 09:17; Admin Dose 15 ML; Start 09/15/16 at 09:00 Docusate Sodium (Colace) 200 mg QHS PRN PO CONSTIPATION; Start 09/15/16 at 06:30 Lisinopril (Zestril) 2.5 mg BID GTB Last administered on 09/15/16 09:24; Admin Dose 2.5 MG; Start 09/15/16 at 09:00; Status Future Hold Diphenhydramine HCl (Benadryl) 25 mg Q6H PRN IV ITCHING Last administered on 13:56; Admin Dose 25 MG; Start 09/15/16 at 21:00 Tramadol HCl (Ultram) 50 mg Q6H PRN GTB PAIN LEVEL 6-10 Last administered on 21:23; Admin Dose 50 MG; Start 09/17/16 at 12:00 Miscellaneous Information 1 ea NOTE XX ; Start 09/17/16 at 12:00 Miscellaneous Information 1 ea NOTE XX ; Start 09/17/16 at 22:45 Glucose (Glutose) 15 gm Q15M PRN PO DECREASED GLUCOSE; Start 09/17/16 at 22:45 Glucose (Glutose) 22.5 gm Q15M PRN PO DECREASED GLUCOSE; Start 09/17/16 at 22:45 Dextrose (D50w Syringe) 25 ml Q15M PRN IV DECREASED GLUCOSE Last administered on 10/04/16 12:26; Admin Dose 25 ML; Start 09/17/16 at 22:45 Dextrose (D50w Syringe) 50 ml Q15M PRN IV DECREASED GLUCOSE; Start 09/17/16 at 22:45 Glucagon (Glucagen) 1 mg Q15M PRN IM DECREASED GLUCOSE; Start 09/17/16 at 22:45 Glucose (Glutose) 15 gm Q15M PRN BUCCAL DECREASED GLUCOSE; Start 09/17/16 at 22: 45 Acetaminophen (Tylenol Tab) 650 mg Q4 PRN GTB PAIN AND OR ELEVATED TEMP Last administered on 09/23/16 00:59; Admin Dose 650 MG; Start 09/18/16 at 11:30 Albuterol (Proventil 0.083% (Neb)) 2.5 mg Q3H PRN NEB WHEEZING AND SOB; Start 09/18/16 at 11:30 Ascorbic Acid (Vitamin C) 500 mg BID PO Last administered on 10/05/16 09:18; Admin Dose 500 MG; Start 09/18/16 at 21:00 Folic Acid (Folic Acid) 1 mg DAILY GTB Last administered on 10/05/16 09:17; Admin Dose 1 MG; Start 09/19/16 at 09:00 Hydroxyzine HCl (Atarax) 25 mg Q8H PRN PO ITCHING Last administered on 21:23; Admin Dose 25 MG; Start 09/18/16 at 11:30 Lorazepam (Ativan) 1 mg Q8 PRN GTB ANXIETY Last administered on 09/22/16 09:17 ; Admin Dose 1 MG; Start 09/18/16 at 11:30 Magnesium Hydroxide (Milk Of Mag) 30 ml DAILY PRN GTB CONSTIPATION Last administered on 09/23/16 17:19; Admin Dose 30 ML; Start 09/18/16 at 11:30 Sodium Biphosphate/ Sodium Phosphate (Fleet Enema Pediatric) 66.6 ml DAILY PRN [place] CONSTIPATION; Start 09/18/16 at 11:30 Lactobacillus Acidophilus/ Rhamnosus (Culturelle) 1 cap BID PO Last administered on 10/05/16 09:18; Admin Dose 1 CAP; Start 09/18/16 at 21:00 Morphine Sulfate (morphine) 2 mg Q4H PRN IV PAIN LEVEL 7-10 Last administered on 09/30/16 12:49; Admin Dose 2 MG; Start 09/19/16 at 11:30 Lorazepam (Ativan) 1 mg Q6H PRN IV ANXIETY Last administered on 09/28/16 01:48 ; Admin Dose 1 MG; Start 09/19/16 at 18:30 Midodrine (Proamatine) 5 mg TID GTB Last administered on 10/05/16 12:14; Admin Dose 5 MG; Start 09/21/16 at 06:00 Ferrous Sulfate (Ferrous Sulfate (Ec)) 325 mg TID PO Last administered on 12:14; Admin Dose 325 MG; Start 09/21/16 at 10:00 Multivitamins 30 ml 30 ml DAILY GTB Last administered on 10/05/16 09:18; Admin Dose 30 ML; Start 09/21/16 at 10:30 Vancomycin HCl (Vancocin) 250 ml @ 125 mls/hr Q5D IVPB Last administered on 22:00; Admin Dose 125 MLS/HR; Start 09/21/16 at 22:00 Bacitracin (Bacitracin Oint (Ud)) 1 applic BID TOP Last administered on 09:18; Admin Dose 1 APPLIC; Start 09/23/16 at 21:00 Metoclopramide HCl 10 mg 10 mg Q6 IV Last administered on 10/05/16 12:14; Admin Dose 10 MG; Start 09/24/16 at 18:00 Norepinephrine/ Dextrose (Levophed/D5W) 500 ml @ 1.87 mls/hr TITRATE IV Last administered on 10/05/16 12:51; Admin Dose 56.25 MLS/HR; Start 09/25/16 at 07: 00; Status Future hold IV Flush 10 ml 10 ml PRN PRN IV IV PROTOCOL; Start 09/25/16 at 16:00 Meropenem/Sodium Chloride (Merrem 500mg/50 ml(Pmx)) 50 ml @ 200 mls/hr Q12 IVPB Last administered on 10/05/16 09:17; Admin Dose 200 MLS/HR; Start at 21:00 Lansoprazole (Prevacid) 30 mg DAILY@06 GTB Last administered on 10/05/16 05:26 ; Admin Dose 30 MG; Start 09/28/16 at 06:00 Bumetanide 1 mg 1 mg DAILY IV Last administered on 09/30/16 08:32; Admin Dose 1 MG; Start 09/30/16 at 09:00; Status Future Hold Metronidazole (Flagyl 500 Mg (Pmx)) 100 ml @ 100 mls/hr Q8 IVPB Last administered on 10/05/16 13:09; Admin Dose 100 MLS/HR; Start 09/30/16 at 14:30 Insulin Aspart NOVOLOG *MODERATE* ALGORI... Q4 SC Last administered on 12:29; Admin Dose 4 UNIT; Start 09/30/16 at 17:00 Vasopressin/ Dextrose (Vasostrict/D5W) 60 ml @ 1.2 mls/hr Q12H IV Last administered on 10/05/16 09:04; Admin Dose 1.2 MLS/HR; Start 10/01/16 at 11:00 Polyethylene Glycol (Miralax) 17 gm DAILY PEG Last administered on 10/05/16 09 :17; Admin Dose 17 GM; Start 10/03/16 at 11:30 Lactulose (Enulose) 20 gm Q8 PO Last administered on 10/05/16 13:09; Admin Dose 20 GM; Start 10/03/16 at 14:00 Insulin Detemir (Levemir) 30 unit HS SC ; Start 10/04/16 at 21:00 Rifaximin (Xifaxan) 550 mg BID PO Last administered on 10/05/16 09:18; Admin Dose 550 MG; Start 10/04/16 at 09:00 Lactulose 100 ml 100 ml Q6 [place] Last administered on 10/05/16 12:14; Admin Dose 100 ML; Start 10/04/16 at 12:00 Sodium Bicarbonate/ Dextrose (Na Bicarb/D5W) 1,100 ml @ 50 mls/hr Q22H IV Last administered on 10/05/16 12:43; Admin Dose 50 MLS/HR; Start 10/04/16 at 12 :00 Enoxaparin Sodium (Lovenox) 40 mg DAILY SC ; Start 10/06/16 at 09:00 JANNETH BURTON NP Oct 05, 2016 13:55
[2016-10-05] MEDS ORDERED: CASPOFUNGIN 70 MG in SOD CHLORIDE 0.9% 250 ML IVPB ONE (15:00)
[2016-10-05] MEDS: BUMETANIDE 1 MG INJ IV SCH (17:58)
[2016-10-05] MEDS ORDERED: AMIODARONE 900 MG in DEXTROSE 5% 482 ML IV SCH (21:30)
[2016-10-05] MEDS: INSULIN DETEMIR [LEVEMIR] 3ML CART SC SCH (21:43)
[2016-10-06] VITALS (105 sets, daily range): BP systolic 53–109; BP diastolic 31–93; PULSE 59–85; RESP 15–25
[2016-10-06] MEDS: ALBUTEROL 18 GM INHALER INH SCH ×6 (01:35→21:25)
[2016-10-06] MEDS: PHENYLephrine 80 MG in DEXTROSE 5% 242 ML IV SCH ×3 (05:05→19:14)
[2016-10-06] MEDS: INSULIN ASPART [NOVOLOG] 3 ML PEN SC SCH ×6 (05:06→20:13)
[2016-10-06] MEDS: BUMETANIDE 1 MG INJ IV SCH (06:00)
[2016-10-06] MEDS: METOCLOPRAMIDE 10 MG INJ IV SCH ×4 (06:08→23:45)
[2016-10-06] MEDS: LACTULOSE 30ML CUP PO SCH ×3 (06:08→21:11)
[2016-10-06] MEDS: metroNIDAZOLE 500 MG/NS (PMX) 100 ML IVPB SCH ×3 (06:08→21:12)
[2016-10-06] MEDS: LACTULOSE ENEMA 1,000 ML BTL PR SCH ×4 (06:08→23:42)
[2016-10-06] MEDS: LANSOPRAZOLE 30 MG CAP GTB SCH (06:08)
[2016-10-06 06:26] LABS: BASOPHILS % 0.1 % (0.0-2.0); EOSINOPHILS # 0.3 10^3/ul (0.0-0.5); EOSINOPHILS % 1.9 % (0.0-7.0); HEMATOCRIT 35.9 % (37.0-47.0); LYMPHOCYTES # 0.6 10^3/ul (0.8-2.9); LYMPHOCYTES % 4.2 % (15.0-51.0); MEAN CORPUSCULAR HEMOGLOBIN 28.6 pg (29.0-33.0); MEAN CORPUSCULAR HGB CONC 30.6 g/dl (32.0-37.0); MEAN CORPUSCULAR VOLUME 93.2 fl (82.0-101.0); MEAN PLATELET VOLUME 9.3 fl (7.4-10.4); MONOCYTE # 0.6 10^3/ul (0.3-0.9); MONOCYTES % 3.9 % (0.0-11.0); NUCLEATED RED BLOOD CELLS% 0.3 /100WBC (0.0-0.0); PLATELET COUNT 379 10^3/UL (140-415); RED BLOOD COUNT 3.85 10^6/ul (4.20-5.40); RED CELL DISTRIBUTION WIDTH 19.9 % (11.5-14.5); WHITE BLOOD COUNT 14.4 10^3/ul (4.8-10.8)
[2016-10-06 07:08] LABS: INR 2.04; PROTIME 23.2 Sec (12.2-14.2); PT RATIO 1.8
[2016-10-06 07:10] LABS: PARTIAL THROMBOPLASTIN TIME 50.7 Sec (25.0-35.0)
[2016-10-06 07:17] LABS: ALBUMIN 2.9 g/dl (3.3-4.9); ALBUMIN/GLOBULIN RATIO 0.85; CALCIUM 8.7 mg/dl (8.4-10.2); CREATININE 0.89 mg/dl (0.44-1.00); MAGNESIUM 2.6 mg/dl (1.7-2.5); PHOSPHORUS 5.6 mg/dl (2.5-4.9); POTASSIUM 3.4 mmol/L (3.5-5.1); TOTAL PROTEIN 6.3 g/dl (6.1-8.1)
[2016-10-06 07:27] LABS: AADO2 Arterial 100.9 mmHg (7.0-24.0); Allen Test ACCEPTAB; Arterial Base Excess -12.5 mmol/L (-3.0-3); Arterial COHb 0.7 % (0.0-3.0); Arterial Fraction of Oxyhgb 92.9 % (93.0-99.0); Arterial HCO3 13.8 mmol/L (22.0-26.0); Arterial MetHb 0.1 % (0.0-1.5); Arterial Total Hemglobin 12.4 g/dl (12.0-18.0); MODE VENT - AC
--- NOTE | 2016-10-06 08:07 | CONS ---
Date/Time of Note Date/Time of Note DATE: 10/06/16 TIME: 08:04 Assessment/Plan Assessment/Plan Chief Complaint/Hosp Course Shock - likely multifactorial, at least partially cardiogenic. Now on 3 pressors Healthcare-associated pneumonia - on antibiotics Acute on chronic systolic heart failure: grossly decompensated Cardiomyopathy, LVEF 20-25% - unclear etiology, unclear if patient has ever had ischemic workup, possibly due to muscular dystrophy Acute kidney injury on chronic kidney disease: resolved Chronic ventilator-dependent respiratory failure Muscular dystrophy Paroxysmal atrial fibrillation and atrial flutter History of ventricular tachycardia (Torsades de pointes) - status post Bi-V ICD upgrade January 2015 ([employer]) Diabetes mellitus Anemia of chronic disease History of right lower extremity deep vein thrombosis Severe peripheral arterial disease - prior CT LE angio with evidence of [employer] SFA and severe disease of popliteal -add dobutamine 5mcg/kg/min -continue levophed, vasopressin, phenylephrine -increase to bumex 2mg BID -continue amiodarone 200mg daily -overall very poor prognosis >40 min critical care time Problems: Consultation Date/Type/Reason Admit Date/Time Sep 15, 2016 at 01:59 Initial Consult Date 09/18/16 Type of Consultation: Cardiology 24 HR Interval Summary Free Text/Dictation Critically ill. Now on 3 pressors. Still acidemic. Brief afib o/n. Was going to start amio but converted. Exam/Review of Systems Vital Signs Vitals Vital Signs Date Time Temp Pulse Resp B/P Pulse Ox O2 Delivery O2 Flow Rate FiO2 10/06/16 06:30 60 24 96/59 10/06/16 06:15 95 10/06/16 06:00 Mechanical Ventilator 10/06/16 05:20 30 10/06/16 04:00 97.2 Intake and Output 10/05/16 10/05/16 10/06/16 15:00 23:00 07:00 Intake Total 1543.50 ml 1229.20 ml 1144.20 ml Output Total 120 ml 135 ml 90 ml Balance 1423.50 ml 1094.20 ml 1054.20 ml Exam Constitutional: No alert Psych: other (unresponsive ) Head: atraumatic, normocephalic Eyes: No PERRL ENMT: No nl lips & teeth Neck: No jvd (difficult to examine ) Respiratory: crackles/rales, diminished breath sounds, No clear to auscultation Cardiovascular: edema (4+ anasarca ), regular rate and rhythm Gastrointestinal: distended, soft Musculoskeletal: No nl extremities to inspection Neurological: No nl mental status, No nl speech Results Result Diagram: 10/06/16 0552 10/06/16 0552 Results 24 hrs Laboratory Tests Test 10/05/16 09:48 10/05/16 12:25 10/05/16 18:06 10/05/16 20:38 Bedside Glucose 205 213 271 H 256 H Test 10/06/16 01:05 10/06/16 05:52 10/06/16 06:00 10/06/16 06:07 Bedside Glucose 234 H 172 White Blood Count 14.4 #H Red Blood Count 3.85 L Hemoglobin 11.0 L Hematocrit 35.9 L Mean Corpuscular Volume 93.2 Mean Corpuscular Hemoglobin 28.6 L Mean Corpuscular Hemoglobin Concent 30.6 L Red Cell Distribution Width 19.9 H Platelet Count 379 Mean Platelet Volume 9.3 Neutrophils % 89.0 H Lymphocytes % 4.2 L Monocytes % 3.9 Eosinophils % 1.9 Basophils % 0.1 Nucleated Red Blood Cells % 0.3 H Neutrophils # (Manual) 13 H Lymphocytes # 0.6 L Monocytes # 0.6 Eosinophils # 0.3 Basophils # 0.0 Nucleated Red Blood Cells # 0.0 Prothrombin Time 23.2 H Prothrombin Time Ratio 1.8 INR International Normalized Ratio 2.04 Activated Partial Thromboplast Time 50.7 H Sodium Level 126 L Potassium Level 3.4 L Chloride Level 91 L Carbon Dioxide Level 17 L Anion Gap 21 H Blood Urea Nitrogen 82 H Creatinine 0.89 Glucose Level 166 Calcium Level 8.7 Phosphorus Level 5.6 H Magnesium Level 2.6 H Total Bilirubin Pending Direct Bilirubin Pending Indirect Bilirubin Pending Aspartate Amino Transf (AST/SGOT) 28 Alanine Aminotransferase (ALT/SGPT) 29 Alkaline Phosphatase 126 H Total Protein 6.3 Albumin 2.9 L Globulin 3.40 H Albumin/Globulin Ratio 0.85 Blood Gas Specimen Source Blood arterial Arterial Blood Date Drawn 10/06/2016 7:09:00 AM Arterial Blood pH (Temp corrected) 7.240 *L Arterial Blood pCO2 (Temp correct) 32.9 L Arterial Blood pO2 (Temp corrected) 74.3 L Arterial Blood HCO3 13.8 L Arterial Blood Base Excess -12.5 L Arterial Blood Oxygen Saturation 93.6 L Chad Test ACCEPTAB Arterial Blood Gas Puncture Site Right Radial Arterial Blood Carboxyhemoglobin 0.7 Arterial Blood Methemoglobin 0.1 Blood Gas A-a O2 Differential 100.9 H Oxyhemoglobin Percent 92.9 L Total Hemoglobin 12.4 Blood Gas Temperature 37.0 Blood Gas Respiration Rate 24.0 Blood Gas Actual Respiration Rate 24 Blood Gas Modality VENT - AC FiO2 30.0 Blood Gas Tidal Volume 550.0 Blood Gas Low PEEP Setting 5.0 Blood Gas Critical Value Read Back CHERYL RN Blood Gas Notified Whom TM Blood Gas Notified Time 10/06/2016 7:23:00 AM Medications Medications Current Medications Ondansetron HCl (Zofran Inj) 4 mg Q6H PRN IV NAUSEA AND/OR VOMITING Last administered on 09/24/16 11:53; Admin Dose 4 MG; Start 09/15/16 at 06:30 Acetaminophen (Tylenol Tab) 650 mg Q6H PRN PO PAIN LEVEL 1-3 OR FEVER Last administered on 09/16/16 20:10; Admin Dose 650 MG; Start 09/15/16 at 06:30 Acetaminophen (Tylenol Supp) 650 mg Q6H PRN [place] PAIN LEVEL 1-3 OR FEVER; Start 09/15/16 at 06:30 Amiodarone HCl (Cordarone) 200 mg DAILY GTB Last administered on 10/05/16 09: 18; Admin Dose 200 MG; Start 09/15/16 at 09:00 Bisacodyl (Dulcolax Supp) 10 mg Q24H PRN [place] CONSTIPATION Last administered on 22:12; Admin Dose 10 MG; Start 09/15/16 at 06:30 Chlorhexidine Gluconate (Peridex) 15 ml BID MM Last administered on 10/05/16 21:17; Admin Dose 15 ML; Start 09/15/16 at 09:00 Docusate Sodium (Colace) 200 mg QHS PRN PO CONSTIPATION; Start 09/15/16 at 06:30 Lisinopril (Zestril) 2.5 mg BID GTB Last administered on 09/15/16 09:24; Admin Dose 2.5 MG; Start 09/15/16 at 09:00; Status Future Hold Diphenhydramine HCl (Benadryl) 25 mg Q6H PRN IV ITCHING Last administered on 13:56; Admin Dose 25 MG; Start 09/15/16 at 21:00 Tramadol HCl (Ultram) 50 mg Q6H PRN GTB PAIN LEVEL 6-10 Last administered on 21:23; Admin Dose 50 MG; Start 09/17/16 at 12:00 Miscellaneous Information 1 ea NOTE XX ; Start 09/17/16 at 12:00 Miscellaneous Information 1 ea NOTE XX ; Start 09/17/16 at 22:45 Glucose (Glutose) 15 gm Q15M PRN PO DECREASED GLUCOSE; Start 09/17/16 at 22:45 Glucose (Glutose) 22.5 gm Q15M PRN PO DECREASED GLUCOSE; Start 09/17/16 at 22:45 Dextrose (D50w Syringe) 25 ml Q15M PRN IV DECREASED GLUCOSE Last administered on 10/04/16 12:26; Admin Dose 25 ML; Start 09/17/16 at 22:45 Dextrose (D50w Syringe) 50 ml Q15M PRN IV DECREASED GLUCOSE; Start 09/17/16 at 22:45 Glucagon (Glucagen) 1 mg Q15M PRN IM DECREASED GLUCOSE; Start 09/17/16 at 22:45 Glucose (Glutose) 15 gm Q15M PRN BUCCAL DECREASED GLUCOSE; Start 09/17/16 at 22: 45 Acetaminophen (Tylenol Tab) 650 mg Q4 PRN GTB PAIN AND OR ELEVATED TEMP Last administered on 09/23/16 00:59; Admin Dose 650 MG; Start 09/18/16 at 11:30 Albuterol (Proventil 0.083% (Neb)) 2.5 mg Q3H PRN NEB WHEEZING AND SOB; Start 09/18/16 at 11:30 Ascorbic Acid (Vitamin C) 500 mg BID PO Last administered on 10/05/16 21:17; Admin Dose 500 MG; Start 09/18/16 at 21:00 Folic Acid (Folic Acid) 1 mg DAILY GTB Last administered on 10/05/16 09:17; Admin Dose 1 MG; Start 09/19/16 at 09:00 Hydroxyzine HCl (Atarax) 25 mg Q8H PRN PO ITCHING Last administered on 21:23; Admin Dose 25 MG; Start 09/18/16 at 11:30 Lorazepam (Ativan) 1 mg Q8 PRN GTB ANXIETY Last administered on 09/22/16 09:17 ; Admin Dose 1 MG; Start 09/18/16 at 11:30 Magnesium Hydroxide (Milk Of Mag) 30 ml DAILY PRN GTB CONSTIPATION Last administered on 09/23/16 17:19; Admin Dose 30 ML; Start 09/18/16 at 11:30 Sodium Biphosphate/ Sodium Phosphate (Fleet Enema Pediatric) 66.6 ml DAILY PRN [place] CONSTIPATION; Start 09/18/16 at 11:30 Lactobacillus Acidophilus/ Rhamnosus (Culturelle) 1 cap BID PO Last administered on 10/05/16 21:16; Admin Dose 1 CAP; Start 09/18/16 at 21:00 Morphine Sulfate (morphine) 2 mg Q4H PRN IV PAIN LEVEL 7-10 Last administered on 09/30/16 12:49; Admin Dose 2 MG; Start 09/19/16 at 11:30 Lorazepam (Ativan) 1 mg Q6H PRN IV ANXIETY Last administered on 09/28/16 01:48 ; Admin Dose 1 MG; Start 09/19/16 at 18:30 Midodrine (Proamatine) 5 mg TID GTB Last administered on 10/05/16 21:16; Admin Dose 5 MG; Start 09/21/16 at 06:00 Ferrous Sulfate (Ferrous Sulfate (Ec)) 325 mg TID PO Last administered on 21:16; Admin Dose 325 MG; Start 09/21/16 at 10:00 Multivitamins 30 ml 30 ml DAILY GTB Last administered on 10/05/16 09:18; Admin Dose 30 ML; Start 09/21/16 at 10:30 Vancomycin HCl (Vancocin) 250 ml @ 125 mls/hr Q5D IVPB Last administered on 22:00; Admin Dose 125 MLS/HR; Start 09/21/16 at 22:00 Bacitracin (Bacitracin Oint (Ud)) 1 applic BID TOP Last administered on 21:17; Admin Dose 1 APPLIC; Start 09/23/16 at 21:00 Metoclopramide HCl 10 mg 10 mg Q6 IV Last administered on 10/06/16 06:08; Admin Dose 10 MG; Start 09/24/16 at 18:00 Norepinephrine/ Dextrose (Levophed/D5W) 500 ml @ 1.87 mls/hr TITRATE IV Last administered on 10/06/16 07:31; Admin Dose 56.25 MLS/HR; Start 09/25/16 at 07: 00; Status Future hold IV Flush 10 ml 10 ml PRN PRN IV IV PROTOCOL; Start 09/25/16 at 16:00 Meropenem/Sodium Chloride (Merrem 500mg/50 ml(Pmx)) 50 ml @ 200 mls/hr Q12 IVPB Last administered on 10/05/16 21:17; Admin Dose 200 MLS/HR; Start at 21:00 Lansoprazole (Prevacid) 30 mg DAILY@06 GTB Last administered on 10/06/16 06:08 ; Admin Dose 30 MG; Start 09/28/16 at 06:00 Bumetanide 1 mg 1 mg DAILY IV Last administered on 09/30/16 08:32; Admin Dose 1 MG; Start 09/30/16 at 09:00; Status Future Hold Metronidazole (Flagyl 500 Mg (Pmx)) 100 ml @ 100 mls/hr Q8 IVPB Last administered on 10/06/16 06:08; Admin Dose 100 MLS/HR; Start 09/30/16 at 14:30 Insulin Aspart NOVOLOG *MODERATE* ALGORI... Q4 SC Last administered on 06:12; Admin Dose 2 UNIT; Start 09/30/16 at 17:00 Vasopressin/ Dextrose (Vasostrict/D5W) 60 ml @ 1.2 mls/hr Q12H IV Last administered on 10/05/16 22:13; Admin Dose 2.4 MLS/HR; Start 10/01/16 at 11:00 Polyethylene Glycol (Miralax) 17 gm DAILY PEG Last administered on 10/05/16 09 :17; Admin Dose 17 GM; Start 10/03/16 at 11:30 Lactulose (Enulose) 20 gm Q8 PO Last administered on 10/06/16 06:08; Admin Dose 20 GM; Start 10/03/16 at 14:00 Insulin Detemir (Levemir) 30 unit HS SC Last administered on 10/05/16 21:43; Admin Dose 30 UNIT; Start 10/04/16 at 21:00 Rifaximin (Xifaxan) 550 mg BID PO Last administered on 10/05/16 21:16; Admin Dose 550 MG; Start 10/04/16 at 09:00 Lactulose 100 ml 100 ml Q6 [place] Last administered on 10/06/16 06:08; Admin Dose 100 ML; Start 10/04/16 at 12:00 Sodium Bicarbonate/ Dextrose (Na Bicarb/D5W) 1,100 ml @ 50 mls/hr Q22H IV Last administered on 10/05/16 12:43; Admin Dose 50 MLS/HR; Start 10/04/16 at 12 :00 Enoxaparin Sodium 40 mg 40 mg DAILY SC ; Start 10/06/16 at 09:00 Caspofungin 50 mg/ Sodium Chloride 250 ml @ 250 mls/hr Q24H IVPB ; Start at 15:00 Phenylephrine HCl 80 mg/Dextrose 250 ml @ 0 mls/hr TITRATE IV Last administered on 10/06/16 05:05; Admin Dose 3.75 MLS/HR; Start 10/05/16 at 21:30 Amiodarone HCl/ Dextrose (Cordarone Iv/ D5W) 500 ml @ 0 mls/hr Q0M IV ; Start at 21:30; Stop 10/06/16 at 21:29 GÓMEZ BURNHAM Oct 06, 2016 08:07
--- NOTE | 2016-10-06 08:15 | RADRPT ---
PROCEDURE: Chest 1 views. CLINICAL INDICATION: Shortness of breath. TECHNIQUE: AP views of the chest was obtained. COMPARISON: October 04, 2016 FINDINGS: The heart is large. Left-sided dual chamber, biventricular pacemaker/defibrillator has its leads ove r the heart and appears stable. Tracheostomy tube is stable and appears in grossly appropriate loca tion. Right-sided PICC line is unchanged. Central pulmonary vascular congestion and interstitial pr ominence in both lungs is unchanged. Patchy infiltrates throughout both lungs and potential small le ft pleural effusion are stable. The osseous structures appear grossly intact and are unchanged. IMPRESSION: Cardiomegaly . Stable central pulmonary vascular congestion and mild interstitial prominence in both lungs. Stable patchy infiltrates throughout both lungs and potential small left pleural effusion. RPTAT: AA .Yuri Johns MD, Date Time Electronically viewed and signed by .Yuri Johns MD, on 10/06/2016 08:15 .P/
[2016-10-06] MEDS: SODIUM BICARBONATE (IV ADD) 100 MEQ in DEXTROSE 5% 1,000 ML IV SCH (08:40)
[2016-10-06] MEDS: POLYETHYLENE GLYCOL 17 GM PACKET PEG SCH (09:04)
[2016-10-06] MEDS: MULTIVITAMINS 30 ML CUP GTB SCH (09:04)
[2016-10-06] MEDS: MEROPENEM 500MG/50 ML (PMX) 50 ML IVPB SCH ×2 (09:04→20:09)
[2016-10-06] MEDS: RIFAXIMIN 550 MG TAB PO SCH ×2 (09:05→20:10)
[2016-10-06] MEDS: LACTOBACILLUS RHAMNOSUS CAP PO SCH ×2 (09:05→20:10)
[2016-10-06] MEDS: FERROUS SULFATE (EC) 325 MG TAB PO SCH ×3 (09:05→20:10)
[2016-10-06] MEDS: MIDODRINE 5 MG TAB GTB SCH ×3 (09:05→20:10)
[2016-10-06] MEDS: FOLIC ACID 1 MG TAB GTB SCH (09:05)
[2016-10-06] MEDS: AMIODARONE 200 MG TAB GTB SCH (09:05)
[2016-10-06] MEDS: CHLORHEXIDINE GLUCONATE 15 ML UD CUP MM SCH ×2 (09:05→20:10)
[2016-10-06] MEDS: ASCORBIC ACID 500 MG TAB PO SCH ×2 (09:05→20:10)
[2016-10-06] MEDS: BACITRACIN 0.9 GM OINT TOP SCH ×2 (09:06→20:10)
[2016-10-06] MEDS: DOBUTamine/D5W 2 MG/ML DRIP 250 ML IV SCH (09:55)
[2016-10-06] MEDS: ENOXAPARIN 40 MG/0.4 ML SYG SC SCH (10:15)
--- NOTE | 2016-10-06 10:18 | PN ---
Date/Time of Note Date/Time of Note DATE: 10/06/16 TIME: 10:12 Assessment/Plan VTE Prophylaxis VTE Prophylaxis Intervention: LMWH Lines/Catheters IV Catheter Type (from Nrs): PICC Line Central line still needed: Yes (multiple pressors, BP labile, IV abx ) Urinary Cath still in place: Yes Reason Cath still needed: urinary retention, other (indicate) (Strict I/O) Assessment/Plan Assessment/Plan Septic shock due to healthcare associated pneumonia + UTI Healthcare associated pneumonia Vent dependent respiratory failure, chronic Cardiomyopathy with ejection fraction of 30-35% with biventricular AICD A. fib and a flutter, currently not on anticoagulation, paced Chronic anoxic encephalopathy with currently acute hepatic encephalopathy with high ammonia level Dysphasia s/p PEG tube Diabetes Chronic kidney disease Hypertension Lower extremity quadriplegia Anemia of chronic disease Pulmonary hypertension Plan: Continue sodium bicarbonate drip at 50 cc/hr Pulmonary following for ventilato care, very poor prognosis, Nurse instructed to call [facility] and have him talk to Palliative care service lactulose enema, Rifaximin for hepatic encephalopathy on IV bumex 1 mg daily, monitor BP, lisinopril hold if SBP<110 mm hg free water flush has been changed, on IV abx meropenem and IV flagyl lovenox for DVT prophylaxis , Prevacid for GI prophylaxis appreciate pulmonayr, Nephrology and cardiology help Subjective 24 Hr Interval Summary Free Text/Dictation pt remains intubated, labile BP on pressors, On IV abx , Episode of atrial firbillatin, Bumex given, Doubatmine gtt Exam/Review of Systems Vital Signs Vitals Vital Signs Date Time Temp Pulse Resp B/P Pulse Ox O2 Delivery O2 Flow Rate FiO2 10/06/16 09:49 60 24 97 30 10/06/16 09:15 95/59 Mechanical Ventilator 10/06/16 08:00 95.7 Intake and Output 10/05/16 10/05/16 10/06/16 15:00 23:00 07:00 Intake Total 1543.50 ml 1229.20 ml 1144.20 ml Output Total 120 ml 135 ml 90 ml Balance 1423.50 ml 1094.20 ml 1054.20 ml Exam Constitutional: non-verbal ENMT: intubated Neck: supple Respiratory: crackles/rales, diminished breath sounds, other (Bilateral Coarse BS+) Cardiovascular: nl pulses, regular rate and rhythm Gastrointestinal: distended, other (obese ), soft Extremities: normal pulses Neurological: other (sedated on ventilator ) Results Result Diagram: 10/06/16 0552 10/06/16 0552 Results 24 hrs Laboratory Tests Test 10/05/16 12:25 10/05/16 18:06 10/05/16 20:38 10/06/16 01:05 Bedside Glucose 213 271 H 256 H 234 H Test 10/06/16 05:52 10/06/16 06:00 10/06/16 06:07 10/06/16 10:03 White Blood Count 14.4 #H Red Blood Count 3.85 L Hemoglobin 11.0 L Hematocrit 35.9 L Mean Corpuscular Volume 93.2 Mean Corpuscular Hemoglobin 28.6 L Mean Corpuscular Hemoglobin Concent 30.6 L Red Cell Distribution Width 19.9 H Platelet Count 379 Mean Platelet Volume 9.3 Neutrophils % 89.0 H Lymphocytes % 4.2 L Monocytes % 3.9 Eosinophils % 1.9 Basophils % 0.1 Nucleated Red Blood Cells % 0.3 H Neutrophils # (Manual) 13 H Lymphocytes # 0.6 L Monocytes # 0.6 Eosinophils # 0.3 Basophils # 0.0 Nucleated Red Blood Cells # 0.0 Prothrombin Time 23.2 H Prothrombin Time Ratio 1.8 INR International Normalized Ratio 2.04 Activated Partial Thromboplast Time 50.7 H Sodium Level 126 L Potassium Level 3.4 L Chloride Level 91 L Carbon Dioxide Level 17 L Anion Gap 21 H Blood Urea Nitrogen 82 H Creatinine 0.89 Glucose Level 166 Calcium Level 8.7 Phosphorus Level 5.6 H Magnesium Level 2.6 H Total Bilirubin Pending Direct Bilirubin Pending Indirect Bilirubin Pending Aspartate Amino Transf (AST/SGOT) 28 Alanine Aminotransferase (ALT/SGPT) 29 Alkaline Phosphatase 126 H Total Protein 6.3 Albumin 2.9 L Globulin 3.40 H Albumin/Globulin Ratio 0.85 Blood Gas Specimen Source Blood arterial Arterial Blood Date Drawn 10/06/2016 7:09:00 AM Arterial Blood pH (Temp corrected) 7.240 *L Arterial Blood pCO2 (Temp correct) 32.9 L Arterial Blood pO2 (Temp corrected) 74.3 L Arterial Blood HCO3 13.8 L Arterial Blood Base Excess -12.5 L Arterial Blood Oxygen Saturation 93.6 L Chad Test ACCEPTAB Arterial Blood Gas Puncture Site Right Radial Arterial Blood Carboxyhemoglobin 0.7 Arterial Blood Methemoglobin 0.1 Blood Gas A-a O2 Differential 100.9 H Oxyhemoglobin Percent 92.9 L Total Hemoglobin 12.4 Blood Gas Temperature 37.0 Blood Gas Respiration Rate 24.0 Blood Gas Actual Respiration Rate 24 Blood Gas Modality VENT - AC FiO2 30.0 Blood Gas Tidal Volume 550.0 Blood Gas Low PEEP Setting 5.0 Blood Gas Critical Value Read Back CHERYL RN Blood Gas Notified Whom TM Blood Gas Notified Time 10/06/2016 7:23:00 AM Bedside Glucose 172 191 Medications Medications Current Medications Ondansetron HCl (Zofran Inj) 4 mg Q6H PRN IV NAUSEA AND/OR VOMITING Last administered on 09/24/16 11:53; Admin Dose 4 MG; Start 09/15/16 at 06:30 Acetaminophen (Tylenol Tab) 650 mg Q6H PRN PO PAIN LEVEL 1-3 OR FEVER Last administered on 09/16/16 20:10; Admin Dose 650 MG; Start 09/15/16 at 06:30 Acetaminophen (Tylenol Supp) 650 mg Q6H PRN [place] PAIN LEVEL 1-3 OR FEVER; Start 09/15/16 at 06:30 Amiodarone HCl (Cordarone) 200 mg DAILY GTB Last administered on 10/06/16 09: 05; Admin Dose 200 MG; Start 09/15/16 at 09:00 Bisacodyl (Dulcolax Supp) 10 mg Q24H PRN [place] CONSTIPATION Last administered on 22:12; Admin Dose 10 MG; Start 09/15/16 at 06:30 Chlorhexidine Gluconate (Peridex) 15 ml BID MM Last administered on 10/06/16 09:05; Admin Dose 15 ML; Start 09/15/16 at 09:00 Docusate Sodium (Colace) 200 mg QHS PRN PO CONSTIPATION; Start 09/15/16 at 06:30 Lisinopril (Zestril) 2.5 mg BID GTB Last administered on 09/15/16 09:24; Admin Dose 2.5 MG; Start 09/15/16 at 09:00; Status Future Hold Diphenhydramine HCl (Benadryl) 25 mg Q6H PRN IV ITCHING Last administered on 13:56; Admin Dose 25 MG; Start 09/15/16 at 21:00 Tramadol HCl (Ultram) 50 mg Q6H PRN GTB PAIN LEVEL 6-10 Last administered on 21:23; Admin Dose 50 MG; Start 09/17/16 at 12:00 Miscellaneous Information 1 ea NOTE XX ; Start 09/17/16 at 12:00 Miscellaneous Information 1 ea NOTE XX ; Start 09/17/16 at 22:45 Glucose (Glutose) 15 gm Q15M PRN PO DECREASED GLUCOSE; Start 09/17/16 at 22:45 Glucose (Glutose) 22.5 gm Q15M PRN PO DECREASED GLUCOSE; Start 09/17/16 at 22:45 Dextrose (D50w Syringe) 25 ml Q15M PRN IV DECREASED GLUCOSE Last administered on 10/04/16 12:26; Admin Dose 25 ML; Start 09/17/16 at 22:45 Dextrose (D50w Syringe) 50 ml Q15M PRN IV DECREASED GLUCOSE; Start 09/17/16 at 22:45 Glucagon (Glucagen) 1 mg Q15M PRN IM DECREASED GLUCOSE; Start 09/17/16 at 22:45 Glucose (Glutose) 15 gm Q15M PRN BUCCAL DECREASED GLUCOSE; Start 09/17/16 at 22: 45 Acetaminophen (Tylenol Tab) 650 mg Q4 PRN GTB PAIN AND OR ELEVATED TEMP Last administered on 09/23/16 00:59; Admin Dose 650 MG; Start 09/18/16 at 11:30 Albuterol (Proventil 0.083% (Neb)) 2.5 mg Q3H PRN NEB WHEEZING AND SOB; Start 09/18/16 at 11:30 Ascorbic Acid (Vitamin C) 500 mg BID PO Last administered on 10/06/16 09:05; Admin Dose 500 MG; Start 09/18/16 at 21:00 Folic Acid (Folic Acid) 1 mg DAILY GTB Last administered on 10/06/16 09:05; Admin Dose 1 MG; Start 09/19/16 at 09:00 Hydroxyzine HCl (Atarax) 25 mg Q8H PRN PO ITCHING Last administered on 21:23; Admin Dose 25 MG; Start 09/18/16 at 11:30 Lorazepam (Ativan) 1 mg Q8 PRN GTB ANXIETY Last administered on 09/22/16 09:17 ; Admin Dose 1 MG; Start 09/18/16 at 11:30 Magnesium Hydroxide (Milk Of Mag) 30 ml DAILY PRN GTB CONSTIPATION Last administered on 09/23/16 17:19; Admin Dose 30 ML; Start 09/18/16 at 11:30 Sodium Biphosphate/ Sodium Phosphate (Fleet Enema Pediatric) 66.6 ml DAILY PRN [place] CONSTIPATION; Start 09/18/16 at 11:30 Lactobacillus Acidophilus/ Rhamnosus (Culturelle) 1 cap BID PO Last administered on 10/06/16 09:05; Admin Dose 1 CAP; Start 09/18/16 at 21:00 Morphine Sulfate (morphine) 2 mg Q4H PRN IV PAIN LEVEL 7-10 Last administered on 09/30/16 12:49; Admin Dose 2 MG; Start 09/19/16 at 11:30 Lorazepam (Ativan) 1 mg Q6H PRN IV ANXIETY Last administered on 09/28/16 01:48 ; Admin Dose 1 MG; Start 09/19/16 at 18:30 Midodrine (Proamatine) 5 mg TID GTB Last administered on 10/06/16 09:05; Admin Dose 5 MG; Start 09/21/16 at 06:00 Ferrous Sulfate (Ferrous Sulfate (Ec)) 325 mg TID PO Last administered on 09:05; Admin Dose 325 MG; Start 09/21/16 at 10:00 Multivitamins 30 ml 30 ml DAILY GTB Last administered on 10/06/16 09:04; Admin Dose 30 ML; Start 09/21/16 at 10:30 Vancomycin HCl (Vancocin) 250 ml @ 125 mls/hr Q5D IVPB Last administered on 22:00; Admin Dose 125 MLS/HR; Start 09/21/16 at 22:00 Bacitracin (Bacitracin Oint (Ud)) 1 applic BID TOP Last administered on 09:06; Admin Dose 1 APPLIC; Start 09/23/16 at 21:00 Metoclopramide HCl 10 mg 10 mg Q6 IV Last administered on 10/06/16 06:08; Admin Dose 10 MG; Start 09/24/16 at 18:00 Norepinephrine/ Dextrose (Levophed/D5W) 500 ml @ 1.87 mls/hr TITRATE IV Last administered on 10/06/16 07:31; Admin Dose 56.25 MLS/HR; Start 09/25/16 at 07: 00; Status Future hold IV Flush 10 ml 10 ml PRN PRN IV IV PROTOCOL; Start 09/25/16 at 16:00 Meropenem/Sodium Chloride (Merrem 500mg/50 ml(Pmx)) 50 ml @ 200 mls/hr Q12 IVPB Last administered on 10/06/16 09:04; Admin Dose 200 MLS/HR; Start at 21:00 Lansoprazole (Prevacid) 30 mg DAILY@06 GTB Last administered on 10/06/16 06:08 ; Admin Dose 30 MG; Start 09/28/16 at 06:00 Bumetanide 1 mg 1 mg DAILY IV Last administered on 09/30/16 08:32; Admin Dose 1 MG; Start 09/30/16 at 09:00; Status Future Hold Metronidazole (Flagyl 500 Mg (Pmx)) 100 ml @ 100 mls/hr Q8 IVPB Last administered on 10/06/16 06:08; Admin Dose 100 MLS/HR; Start 09/30/16 at 14:30 Insulin Aspart NOVOLOG *MODERATE* ALGORI... Q4 SC Last administered on 06:12; Admin Dose 2 UNIT; Start 09/30/16 at 17:00 Vasopressin/ Dextrose (Vasostrict/D5W) 60 ml @ 1.2 mls/hr Q12H IV Last administered on 10/05/16 22:13; Admin Dose 2.4 MLS/HR; Start 10/01/16 at 11:00 Polyethylene Glycol (Miralax) 17 gm DAILY PEG Last administered on 10/06/16 09 :04; Admin Dose 17 GM; Start 10/03/16 at 11:30 Lactulose (Enulose) 20 gm Q8 PO Last administered on 10/06/16 06:08; Admin Dose 20 GM; Start 10/03/16 at 14:00 Insulin Detemir (Levemir) 30 unit HS SC Last administered on 10/05/16 21:43; Admin Dose 30 UNIT; Start 10/04/16 at 21:00 Rifaximin (Xifaxan) 550 mg BID PO Last administered on 10/06/16 09:05; Admin Dose 550 MG; Start 10/04/16 at 09:00 Lactulose 100 ml 100 ml Q6 [place] Last administered on 10/06/16 06:08; Admin Dose 100 ML; Start 10/04/16 at 12:00 Sodium Bicarbonate/ Dextrose (Na Bicarb/D5W) 1,100 ml @ 50 mls/hr Q22H IV Last administered on 10/06/16 08:40; Admin Dose 50 MLS/HR; Start 10/04/16 at 12 :00 Enoxaparin Sodium 40 mg 40 mg DAILY SC ; Start 10/06/16 at 09:00 Caspofungin 50 mg/ Sodium Chloride 250 ml @ 250 mls/hr Q24H IVPB ; Start at 15:00 Phenylephrine HCl 80 mg/Dextrose 250 ml @ 0 mls/hr TITRATE IV Last administered on 10/06/16 05:05; Admin Dose 3.75 MLS/HR; Start 10/05/16 at 21:30 Amiodarone HCl 900 mg/Dextrose 500 ml @ 0 mls/hr Q0M IV ; Start 10/05/16 at 21: 30; Stop 10/06/16 at 21:29 Dobutamine HCl/ Dextrose 250 ml @ 16.59 mls/ hr TITRATE IV Last administered on 10/06/16 09:55; Admin Dose 16.59 MLS/HR; Start 10/06/16 at 08:30 PAT RUSSELL MD Oct 06, 2016 10:18
[2016-10-06] MEDS: BUMETANIDE 2 MG in DEXTROSE 5% 17 ML IV SCH ×2 (10:41→19:15)
[2016-10-06] MEDS: VASOPRESSIN 60 UNIT in DEXTROSE 5% 57 ML IV SCH ×2 (11:00→22:21)
--- NOTE | 2016-10-06 11:45 | CONS ---
Date/Time of Note Date/Time of Note DATE: 10/06/16 TIME: 11:34 Consult Date/Type/Reason Admit Date/Time Sep 15, 2016 at 01:59 Initial Consult Date 09/18/16 Type of Consultation: Pulmonary Subjective Continues multiple vasopressors. Minimally responsive on mechanical ventilation. Objective Vital Signs Date Time Temp Pulse Resp B/P Pulse Ox O2 Delivery O2 Flow Rate FiO2 10/06/16 10:45 80 24 79/55 94 Mechanical Ventilator 10/06/16 09:49 30 10/06/16 08:00 95.7 Intake and Output 10/05/16 10/05/16 10/06/16 15:00 23:00 07:00 Intake Total 1543.50 ml 1229.20 ml 1144.20 ml Output Total 120 ml 135 ml 90 ml Balance 1423.50 ml 1094.20 ml 1054.20 ml Exam PHYSICAL EXAMINATION GENERAL: Elderly lady on mechanical ventilation. Somnolent. VITAL SIGNS: see below. HEENT: Pupils equal, round, and reactive to light. Tracheostomy site clean and intact. CARDIAC: S1, S2, 1/6 systolic ejection murmur CHEST: Diminished air entry bilaterally. ABDOMEN: Mildly distended. Bowel sounds present no guarding or rebound EXTREMITIES: No cyanosis, clubbing edema +1 NEUROLOGIC: Generalized weakness Results/Medications Result Diagram: 10/06/16 0552 10/06/16 0552 Results 24 hrs Laboratory Tests Test 10/05/16 12:25 10/05/16 18:06 10/05/16 20:38 10/06/16 01:05 Bedside Glucose 213 271 H 256 H 234 H Test 10/06/16 05:52 10/06/16 06:00 10/06/16 06:07 10/06/16 10:03 White Blood Count 14.4 #H Red Blood Count 3.85 L Hemoglobin 11.0 L Hematocrit 35.9 L Mean Corpuscular Volume 93.2 Mean Corpuscular Hemoglobin 28.6 L Mean Corpuscular Hemoglobin Concent 30.6 L Red Cell Distribution Width 19.9 H Platelet Count 379 Mean Platelet Volume 9.3 Neutrophils % 89.0 H Lymphocytes % 4.2 L Monocytes % 3.9 Eosinophils % 1.9 Basophils % 0.1 Nucleated Red Blood Cells % 0.3 H Neutrophils # (Manual) 13 H Lymphocytes # 0.6 L Monocytes # 0.6 Eosinophils # 0.3 Basophils # 0.0 Nucleated Red Blood Cells # 0.0 Prothrombin Time 23.2 H Prothrombin Time Ratio 1.8 INR International Normalized Ratio 2.04 Activated Partial Thromboplast Time 50.7 H Sodium Level 126 L Potassium Level 3.4 L Chloride Level 91 L Carbon Dioxide Level 17 L Anion Gap 21 H Blood Urea Nitrogen 82 H Creatinine 0.89 Glucose Level 166 Calcium Level 8.7 Phosphorus Level 5.6 H Magnesium Level 2.6 H Total Bilirubin Pending Direct Bilirubin Pending Indirect Bilirubin Pending Aspartate Amino Transf (AST/SGOT) 28 Alanine Aminotransferase (ALT/SGPT) 29 Alkaline Phosphatase 126 H Total Protein 6.3 Albumin 2.9 L Globulin 3.40 H Albumin/Globulin Ratio 0.85 Blood Gas Specimen Source Blood arterial Arterial Blood Date Drawn 10/06/2016 7:09:00 AM Arterial Blood pH (Temp corrected) 7.240 *L Arterial Blood pCO2 (Temp correct) 32.9 L Arterial Blood pO2 (Temp corrected) 74.3 L Arterial Blood HCO3 13.8 L Arterial Blood Base Excess -12.5 L Arterial Blood Oxygen Saturation 93.6 L Chad Test ACCEPTAB Arterial Blood Gas Puncture Site Right Radial Arterial Blood Carboxyhemoglobin 0.7 Arterial Blood Methemoglobin 0.1 Blood Gas A-a O2 Differential 100.9 H Oxyhemoglobin Percent 92.9 L Total Hemoglobin 12.4 Blood Gas Temperature 37.0 Blood Gas Respiration Rate 24.0 Blood Gas Actual Respiration Rate 24 Blood Gas Modality VENT - AC FiO2 30.0 Blood Gas Tidal Volume 550.0 Blood Gas Low PEEP Setting 5.0 Blood Gas Critical Value Read Back CHERYL MENDIOLA Blood Gas Notified Whom TM Blood Gas Notified Time 10/06/2016 7:23:00 AM Bedside Glucose 172 191 Medications Current Medications Ondansetron HCl (Zofran Inj) 4 mg Q6H PRN IV NAUSEA AND/OR VOMITING Last administered on 09/24/16 11:53; Admin Dose 4 MG; Start 09/15/16 at 06:30 Acetaminophen (Tylenol Tab) 650 mg Q6H PRN PO PAIN LEVEL 1-3 OR FEVER Last administered on 09/16/16 20:10; Admin Dose 650 MG; Start 09/15/16 at 06:30 Acetaminophen (Tylenol Supp) 650 mg Q6H PRN ID PAIN LEVEL 1-3 OR FEVER; Start 09/15/16 at 06:30 Amiodarone HCl (Cordarone) 200 mg DAILY GTB Last administered on 10/06/16 09: 05; Admin Dose 200 MG; Start 09/15/16 at 09:00 Bisacodyl (Dulcolax Supp) 10 mg Q24H PRN ID CONSTIPATION Last administered on 22:12; Admin Dose 10 MG; Start 09/15/16 at 06:30 Chlorhexidine Gluconate (Peridex) 15 ml BID MM Last administered on 10/06/16 09:05; Admin Dose 15 ML; Start 09/15/16 at 09:00 Docusate Sodium (Colace) 200 mg QHS PRN PO CONSTIPATION; Start 09/15/16 at 06:30 Lisinopril (Zestril) 2.5 mg BID GTB Last administered on 09/15/16 09:24; Admin Dose 2.5 MG; Start 09/15/16 at 09:00; Status Future Hold Diphenhydramine HCl (Benadryl) 25 mg Q6H PRN IV ITCHING Last administered on 13:56; Admin Dose 25 MG; Start 09/15/16 at 21:00 Tramadol HCl (Ultram) 50 mg Q6H PRN GTB PAIN LEVEL 6-10 Last administered on 21:23; Admin Dose 50 MG; Start 09/17/16 at 12:00 Miscellaneous Information 1 ea NOTE XX ; Start 09/17/16 at 12:00 Miscellaneous Information 1 ea NOTE XX ; Start 09/17/16 at 22:45 Glucose (Glutose) 15 gm Q15M PRN PO DECREASED GLUCOSE; Start 09/17/16 at 22:45 Glucose (Glutose) 22.5 gm Q15M PRN PO DECREASED GLUCOSE; Start 09/17/16 at 22:45 Dextrose (D50w Syringe) 25 ml Q15M PRN IV DECREASED GLUCOSE Last administered on 10/04/16 12:26; Admin Dose 25 ML; Start 09/17/16 at 22:45 Dextrose (D50w Syringe) 50 ml Q15M PRN IV DECREASED GLUCOSE; Start 09/17/16 at 22:45 Glucagon (Glucagen) 1 mg Q15M PRN IM DECREASED GLUCOSE; Start 09/17/16 at 22:45 Glucose (Glutose) 15 gm Q15M PRN BUCCAL DECREASED GLUCOSE; Start 09/17/16 at 22: 45 Acetaminophen (Tylenol Tab) 650 mg Q4 PRN GTB PAIN AND OR ELEVATED TEMP Last administered on 09/23/16 00:59; Admin Dose 650 MG; Start 09/18/16 at 11:30 Albuterol (Proventil 0.083% (Neb)) 2.5 mg Q3H PRN NEB WHEEZING AND SOB; Start 09/18/16 at 11:30 Ascorbic Acid (Vitamin C) 500 mg BID PO Last administered on 10/06/16 09:05; Admin Dose 500 MG; Start 09/18/16 at 21:00 Folic Acid (Folic Acid) 1 mg DAILY GTB Last administered on 10/06/16 09:05; Admin Dose 1 MG; Start 09/19/16 at 09:00 Hydroxyzine HCl (Atarax) 25 mg Q8H PRN PO ITCHING Last administered on 21:23; Admin Dose 25 MG; Start 09/18/16 at 11:30 Lorazepam (Ativan) 1 mg Q8 PRN GTB ANXIETY Last administered on 09/22/16 09:17 ; Admin Dose 1 MG; Start 09/18/16 at 11:30 Magnesium Hydroxide (Milk Of Mag) 30 ml DAILY PRN GTB CONSTIPATION Last administered on 09/23/16 17:19; Admin Dose 30 ML; Start 09/18/16 at 11:30 Sodium Biphosphate/ Sodium Phosphate (Fleet Enema Pediatric) 66.6 ml DAILY PRN ID CONSTIPATION; Start 09/18/16 at 11:30 Lactobacillus Acidophilus/ Rhamnosus (Culturelle) 1 cap BID PO Last administered on 10/06/16 09:05; Admin Dose 1 CAP; Start 09/18/16 at 21:00 Morphine Sulfate (morphine) 2 mg Q4H PRN IV PAIN LEVEL 7-10 Last administered on 09/30/16 12:49; Admin Dose 2 MG; Start 09/19/16 at 11:30 Lorazepam (Ativan) 1 mg Q6H PRN IV ANXIETY Last administered on 09/28/16 01:48 ; Admin Dose 1 MG; Start 09/19/16 at 18:30 Midodrine (Proamatine) 5 mg TID GTB Last administered on 10/06/16 09:05; Admin Dose 5 MG; Start 09/21/16 at 06:00 Ferrous Sulfate (Ferrous Sulfate (Ec)) 325 mg TID PO Last administered on 09:05; Admin Dose 325 MG; Start 09/21/16 at 10:00 Multivitamins 30 ml 30 ml DAILY GTB Last administered on 10/06/16 09:04; Admin Dose 30 ML; Start 09/21/16 at 10:30 Vancomycin HCl (Vancocin) 250 ml @ 125 mls/hr Q5D IVPB Last administered on 22:00; Admin Dose 125 MLS/HR; Start 09/21/16 at 22:00 Bacitracin (Bacitracin Oint (Ud)) 1 applic BID TOP Last administered on 09:06; Admin Dose 1 APPLIC; Start 09/23/16 at 21:00 Metoclopramide HCl 10 mg 10 mg Q6 IV Last administered on 10/06/16 06:08; Admin Dose 10 MG; Start 09/24/16 at 18:00 Norepinephrine/ Dextrose (Levophed/D5W) 500 ml @ 1.87 mls/hr TITRATE IV Last administered on 10/06/16 07:31; Admin Dose 56.25 MLS/HR; Start 09/25/16 at 07: 00; Status Future hold IV Flush 10 ml 10 ml PRN PRN IV IV PROTOCOL; Start 09/25/16 at 16:00 Meropenem/Sodium Chloride (Merrem 500mg/50 ml(Pmx)) 50 ml @ 200 mls/hr Q12 IVPB Last administered on 10/06/16 09:04; Admin Dose 200 MLS/HR; Start at 21:00 Lansoprazole (Prevacid) 30 mg DAILY@06 GTB Last administered on 10/06/16 06:08 ; Admin Dose 30 MG; Start 09/28/16 at 06:00 Bumetanide 1 mg 1 mg DAILY IV Last administered on 09/30/16 08:32; Admin Dose 1 MG; Start 09/30/16 at 09:00; Status Future Hold Metronidazole (Flagyl 500 Mg (Pmx)) 100 ml @ 100 mls/hr Q8 IVPB Last administered on 10/06/16 06:08; Admin Dose 100 MLS/HR; Start 09/30/16 at 14:30 Insulin Aspart NOVOLOG *MODERATE* ALGORI... Q4 SC Last administered on 10:07; Admin Dose 4 UNIT; Start 09/30/16 at 17:00 Vasopressin/ Dextrose (Vasostrict/D5W) 60 ml @ 1.2 mls/hr Q12H IV Last administered on 10/05/16 22:13; Admin Dose 2.4 MLS/HR; Start 10/01/16 at 11:00 Polyethylene Glycol (Miralax) 17 gm DAILY PEG Last administered on 10/06/16 09 :04; Admin Dose 17 GM; Start 10/03/16 at 11:30 Lactulose (Enulose) 20 gm Q8 PO Last administered on 10/06/16 06:08; Admin Dose 20 GM; Start 10/03/16 at 14:00 Insulin Detemir (Levemir) 30 unit HS SC Last administered on 10/05/16 21:43; Admin Dose 30 UNIT; Start 10/04/16 at 21:00 Rifaximin (Xifaxan) 550 mg BID PO Last administered on 10/06/16 09:05; Admin Dose 550 MG; Start 10/04/16 at 09:00 Lactulose 100 ml 100 ml Q6 ID Last administered on 10/06/16 06:08; Admin Dose 100 ML; Start 10/04/16 at 12:00 Sodium Bicarbonate/ Dextrose (Na Bicarb/D5W) 1,100 ml @ 50 mls/hr Q22H IV Last administered on 10/06/16 08:40; Admin Dose 50 MLS/HR; Start 10/04/16 at 12 :00 Enoxaparin Sodium 40 mg 40 mg DAILY SC Last administered on 10/06/16 10:15; Admin Dose 40 MG; Start 10/06/16 at 09:00 Caspofungin 50 mg/ Sodium Chloride 250 ml @ 250 mls/hr Q24H IVPB ; Start at 15:00 Phenylephrine HCl 80 mg/Dextrose 250 ml @ 0 mls/hr TITRATE IV Last administered on 10/06/16 05:05; Admin Dose 3.75 MLS/HR; Start 10/05/16 at 21:30 Amiodarone HCl 900 mg/Dextrose 500 ml @ 0 mls/hr Q0M IV ; Start 10/05/16 at 21: 30; Stop 10/06/16 at 21:29 Dobutamine HCl/ Dextrose 250 ml @ 16.59 mls/ hr TITRATE IV Last administered on 10/06/16t 09:55; Admin Dose 16.59 MLS/HR; Start 10/06/16 at 08:30 Assessment/Plan Chief Complaint/Hosp Course Chest x-ray ARDS versus pulmonary edema Chest x-ray additional Assessment/Plan IMP: 1. VDRF 2. HCAP 3. CHF decreased ejection fraction but evidence of pulmonary hypertension. 4. CMY 5. Encephalopathy secondary to sepsis. Clinically improved 6. Refractory septic shock on multiple vasopressors. 7. Mixed acidosis. 8. Anemia multifactorial 9. Significant ascites questionable SBP 10. Diabetes mellitus RECS: 1. Vent support continue current settings 2. BDs/CPT 3. Abx per ID 4. Intravenous bicarbonate as needed 5. Vasopressors keep MAP > 65. 6. ID recommendations Disposition Continue ICU care prognosis guarded. Critical care time 40 minutes. Very poor prognosis. Family aware. Currently remains full code. I had an extensive discussion with patient's at bedside. Explained prognosis is very poor should consider no CPR. Critical care time 40 minutes. Problems: YUNIEL JACK MD, [facility] Oct 06, 2016 11:44
--- NOTE | 2016-10-06 13:15 | CONS ---
Date/Time of Note Date/Time of Note DATE: 10/06/16 TIME: 13:13 Assessment/Plan Assessment/Plan Chief Complaint/Hosp Course Maxed on multiple pressors, hypothermic, lethargic in no distress Blood culture since September 26, negative, urine culture September 28 negative. INDWELLINGS: Trach, PEG, Matthew, PICC line. Antimicrobials, Flagyl, meropenem, vancomycin, Cancidas PHYSICAL EXAMINATION: This is an obese chronically ill- appearing, middle-aged woman, who is lethargic, in no distress. HEENT: Head atraumatic, normocephalic. Sclerae anicteric. Buccal mucosa dry. NECK: Obese. Tracheostomy present. CHEST: Rise symmetrical. Breath sounds with scattered crackles. HEART: S1, S2. ABDOMEN: Distended, positive ascites. Bowel sounds hypoactive. EXTREMITIES: With bilateral edema and severe anasarca. ASSESSMENT: 1. Septic shock with multisystem organ failure. 2. Healthcare-associated pneumonia. 3. Acute decompensated heart failure. 4. Cardiomyopathy. 5. Recurrent ascites, status post multiple paracentesis with a sciatic fluid. Cultures remain negative. 6. Diabetes. 7. Muscle dystrophy. 8. Status post Delia glabrata urinary tract infection. PLAN: Continues to deteriorate, continue present care, antibiotics, prognosis poor Discussed with RN Problems: Consultation Date/Type/Reason Admit Date/Time Sep 15, 2016 at 01:59 Initial Consult Date 09/18/16 Type of Consultation: ID Exam/Review of Systems Vital Signs Vitals Vital Signs Date Time Temp Pulse Resp B/P Pulse Ox O2 Delivery O2 Flow Rate FiO2 10/06/16 11:50 78 24 98 30 10/06/16 11:30 83/39 Mechanical Ventilator 10/06/16 08:00 95.7 Intake and Output 10/05/16 10/05/16 10/06/16 15:00 23:00 07:00 Intake Total 1543.50 ml 1229.20 ml 1144.20 ml Output Total 120 ml 135 ml 100 ml Balance 1423.50 ml 1094.20 ml 1044.20 ml Results Result Diagram: 10/06/16 0552 10/06/16 0552 Results 24 hrs Laboratory Tests Test 10/05/16 18:06 10/05/16 20:38 10/06/16 01:05 10/06/16 05:52 Bedside Glucose 271 H 256 H 234 H White Blood Count 14.4 #H Red Blood Count 3.85 L Hemoglobin 11.0 L Hematocrit 35.9 L Mean Corpuscular Volume 93.2 Mean Corpuscular Hemoglobin 28.6 L Mean Corpuscular Hemoglobin Concent 30.6 L Red Cell Distribution Width 19.9 H Platelet Count 379 Mean Platelet Volume 9.3 Neutrophils % 89.0 H Lymphocytes % 4.2 L Monocytes % 3.9 Eosinophils % 1.9 Basophils % 0.1 Nucleated Red Blood Cells % 0.3 H Neutrophils # (Manual) 13 H Lymphocytes # 0.6 L Monocytes # 0.6 Eosinophils # 0.3 Basophils # 0.0 Nucleated Red Blood Cells # 0.0 Prothrombin Time 23.2 H Prothrombin Time Ratio 1.8 INR International Normalized Ratio 2.04 Activated Partial Thromboplast Time 50.7 H Sodium Level 126 L Potassium Level 3.4 L Chloride Level 91 L Carbon Dioxide Level 17 L Anion Gap 21 H Blood Urea Nitrogen 82 H Creatinine 0.89 Glucose Level 166 Calcium Level 8.7 Phosphorus Level 5.6 H Magnesium Level 2.6 H Total Bilirubin Pending Direct Bilirubin Pending Indirect Bilirubin Pending Aspartate Amino Transf (AST/SGOT) 28 Alanine Aminotransferase (ALT/SGPT) 29 Alkaline Phosphatase 126 H Total Protein 6.3 Albumin 2.9 L Globulin 3.40 H Albumin/Globulin Ratio 0.85 Test 10/06/16 06:00 10/06/16 06:07 10/06/16 10:03 10/06/16 12:29 Blood Gas Specimen Source Blood arterial Arterial Blood Date Drawn 10/06/2016 7:09:00 AM Arterial Blood pH (Temp corrected) 7.240 *L Arterial Blood pCO2 (Temp correct) 32.9 L Arterial Blood pO2 (Temp corrected) 74.3 L Arterial Blood HCO3 13.8 L Arterial Blood Base Excess -12.5 L Arterial Blood Oxygen Saturation 93.6 L Chad Test ACCEPTAB Arterial Blood Gas Puncture Site Right Radial Arterial Blood Carboxyhemoglobin 0.7 Arterial Blood Methemoglobin 0.1 Blood Gas A-a O2 Differential 100.9 H Oxyhemoglobin Percent 92.9 L Total Hemoglobin 12.4 Blood Gas Temperature 37.0 Blood Gas Respiration Rate 24.0 Blood Gas Actual Respiration Rate 24 Blood Gas Modality VENT - AC FiO2 30.0 Blood Gas Tidal Volume 550.0 Blood Gas Low PEEP Setting 5.0 Blood Gas Critical Value Read Back CHERYL RN Blood Gas Notified Whom TM Blood Gas Notified Time 10/06/2016 7:23:00 AM Bedside Glucose 172 191 213 Medications Medications Current Medications Ondansetron HCl (Zofran Inj) 4 mg Q6H PRN IV NAUSEA AND/OR VOMITING Last administered on 09/24/16 11:53; Admin Dose 4 MG; Start 09/15/16 at 06:30 Acetaminophen (Tylenol Tab) 650 mg Q6H PRN PO PAIN LEVEL 1-3 OR FEVER Last administered on 09/16/16 20:10; Admin Dose 650 MG; Start 09/15/16 at 06:30 Acetaminophen (Tylenol Supp) 650 mg Q6H PRN OK PAIN LEVEL 1-3 OR FEVER; Start 09/15/16 at 06:30 Amiodarone HCl (Cordarone) 200 mg DAILY GTB Last administered on 10/06/16 09: 05; Admin Dose 200 MG; Start 09/15/16 at 09:00 Bisacodyl (Dulcolax Supp) 10 mg Q24H PRN OK CONSTIPATION Last administered on 22:12; Admin Dose 10 MG; Start 09/15/16 at 06:30 Chlorhexidine Gluconate (Peridex) 15 ml BID MM Last administered on 10/06/16 09:05; Admin Dose 15 ML; Start 09/15/16 at 09:00 Docusate Sodium (Colace) 200 mg QHS PRN PO CONSTIPATION; Start 09/15/16 at 06:30 Lisinopril (Zestril) 2.5 mg BID GTB Last administered on 09/15/16 09:24; Admin Dose 2.5 MG; Start 09/15/16 at 09:00; Status Future Hold Diphenhydramine HCl (Benadryl) 25 mg Q6H PRN IV ITCHING Last administered on 13:56; Admin Dose 25 MG; Start 09/15/16 at 21:00 Tramadol HCl (Ultram) 50 mg Q6H PRN GTB PAIN LEVEL 6-10 Last administered on 21:23; Admin Dose 50 MG; Start 09/17/16 at 12:00 Miscellaneous Information 1 ea NOTE XX ; Start 09/17/16 at 12:00 Miscellaneous Information 1 ea NOTE XX ; Start 09/17/16 at 22:45 Glucose (Glutose) 15 gm Q15M PRN PO DECREASED GLUCOSE; Start 09/17/16 at 22:45 Glucose (Glutose) 22.5 gm Q15M PRN PO DECREASED GLUCOSE; Start 09/17/16 at 22:45 Dextrose (D50w Syringe) 25 ml Q15M PRN IV DECREASED GLUCOSE Last administered on 10/04/16 12:26; Admin Dose 25 ML; Start 09/17/16 at 22:45 Dextrose (D50w Syringe) 50 ml Q15M PRN IV DECREASED GLUCOSE; Start 09/17/16 at 22:45 Glucagon (Glucagen) 1 mg Q15M PRN IM DECREASED GLUCOSE; Start 09/17/16 at 22:45 Glucose (Glutose) 15 gm Q15M PRN BUCCAL DECREASED GLUCOSE; Start 09/17/16 at 22: 45 Acetaminophen (Tylenol Tab) 650 mg Q4 PRN GTB PAIN AND OR ELEVATED TEMP Last administered on 09/23/16 00:59; Admin Dose 650 MG; Start 09/18/16 at 11:30 Albuterol (Proventil 0.083% (Neb)) 2.5 mg Q3H PRN NEB WHEEZING AND SOB; Start 09/18/16 at 11:30 Ascorbic Acid (Vitamin C) 500 mg BID PO Last administered on 10/06/16 09:05; Admin Dose 500 MG; Start 09/18/16 at 21:00 Folic Acid (Folic Acid) 1 mg DAILY GTB Last administered on 10/06/16 09:05; Admin Dose 1 MG; Start 09/19/16 at 09:00 Hydroxyzine HCl (Atarax) 25 mg Q8H PRN PO ITCHING Last administered on 21:23; Admin Dose 25 MG; Start 09/18/16 at 11:30 Lorazepam (Ativan) 1 mg Q8 PRN GTB ANXIETY Last administered on 09/22/16 09:17 ; Admin Dose 1 MG; Start 09/18/16 at 11:30 Magnesium Hydroxide (Milk Of Mag) 30 ml DAILY PRN GTB CONSTIPATION Last administered on 09/23/16 17:19; Admin Dose 30 ML; Start 09/18/16 at 11:30 Sodium Biphosphate/ Sodium Phosphate (Fleet Enema Pediatric) 66.6 ml DAILY PRN OK CONSTIPATION; Start 09/18/16 at 11:30 Lactobacillus Acidophilus/ Rhamnosus (Culturelle) 1 cap BID PO Last administered on 10/06/16 09:05; Admin Dose 1 CAP; Start 09/18/16 at 21:00 Morphine Sulfate (morphine) 2 mg Q4H PRN IV PAIN LEVEL 7-10 Last administered on 09/30/16 12:49; Admin Dose 2 MG; Start 09/19/16 at 11:30 Lorazepam (Ativan) 1 mg Q6H PRN IV ANXIETY Last administered on 09/28/16 01:48 ; Admin Dose 1 MG; Start 09/19/16 at 18:30 Midodrine (Proamatine) 5 mg TID GTB Last administered on 10/06/16 12:37; Admin Dose 5 MG; Start 09/21/16 at 06:00 Ferrous Sulfate (Ferrous Sulfate (Ec)) 325 mg TID PO Last administered on 12:37; Admin Dose 325 MG; Start 09/21/16 at 10:00 Multivitamins 30 ml 30 ml DAILY GTB Last administered on 10/06/16 09:04; Admin Dose 30 ML; Start 09/21/16 at 10:30 Vancomycin HCl (Vancocin) 250 ml @ 125 mls/hr Q5D IVPB Last administered on 22:00; Admin Dose 125 MLS/HR; Start 09/21/16 at 22:00 Bacitracin (Bacitracin Oint (Ud)) 1 applic BID TOP Last administered on 09:06; Admin Dose 1 APPLIC; Start 09/23/16 at 21:00 Metoclopramide HCl 10 mg 10 mg Q6 IV Last administered on 10/06/16 12:37; Admin Dose 10 MG; Start 09/24/16 at 18:00 Norepinephrine/ Dextrose (Levophed/D5W) 500 ml @ 1.87 mls/hr TITRATE IV Last administered on 10/06/16 07:31; Admin Dose 56.25 MLS/HR; Start 09/25/16 at 07: 00; Status Future hold IV Flush 10 ml 10 ml PRN PRN IV IV PROTOCOL; Start 09/25/16 at 16:00 Meropenem/Sodium Chloride (Merrem 500mg/50 ml(Pmx)) 50 ml @ 200 mls/hr Q12 IVPB Last administered on 10/06/16 09:04; Admin Dose 200 MLS/HR; Start at 21:00 Lansoprazole (Prevacid) 30 mg DAILY@06 GTB Last administered on 10/06/16 06:08 ; Admin Dose 30 MG; Start 09/28/16 at 06:00 Bumetanide 1 mg 1 mg DAILY IV Last administered on 09/30/16 08:32; Admin Dose 1 MG; Start 09/30/16 at 09:00; Status Future Hold Metronidazole (Flagyl 500 Mg (Pmx)) 100 ml @ 100 mls/hr Q8 IVPB Last administered on 10/06/16 06:08; Admin Dose 100 MLS/HR; Start 09/30/16 at 14:30 Insulin Aspart NOVOLOG *MODERATE* ALGORI... Q4 SC Last administered on 12:35; Admin Dose 4 UNIT; Start 09/30/16 at 17:00 Vasopressin/ Dextrose (Vasostrict/D5W) 60 ml @ 1.2 mls/hr Q12H IV Last administered on 10/05/16 22:13; Admin Dose 2.4 MLS/HR; Start 10/01/16 at 11:00 Polyethylene Glycol (Miralax) 17 gm DAILY PEG Last administered on 10/06/16 09 :04; Admin Dose 17 GM; Start 10/03/16 at 11:30 Lactulose (Enulose) 20 gm Q8 PO Last administered on 10/06/16 06:08; Admin Dose 20 GM; Start 10/03/16 at 14:00 Insulin Detemir (Levemir) 30 unit HS SC Last administered on 10/05/16 21:43; Admin Dose 30 UNIT; Start 10/04/16 at 21:00 Rifaximin (Xifaxan) 550 mg BID PO Last administered on 10/06/16 09:05; Admin Dose 550 MG; Start 10/04/16 at 09:00 Lactulose 100 ml 100 ml Q6 OK Last administered on 10/06/16 12:37; Admin Dose 100 ML; Start 10/04/16 at 12:00 Sodium Bicarbonate/ Dextrose (Na Bicarb/D5W) 1,100 ml @ 50 mls/hr Q22H IV Last administered on 10/06/16 08:40; Admin Dose 50 MLS/HR; Start 10/04/16 at 12 :00 Enoxaparin Sodium 40 mg 40 mg DAILY SC Last administered on 10/06/16 10:15; Admin Dose 40 MG; Start 10/06/16 at 09:00 Caspofungin 50 mg/ Sodium Chloride 250 ml @ 250 mls/hr Q24H IVPB ; Start at 15:00 Phenylephrine HCl 80 mg/Dextrose 250 ml @ 0 mls/hr TITRATE IV Last administered on 10/06/16 05:05; Admin Dose 3.75 MLS/HR; Start 10/05/16 at 21:30 Amiodarone HCl 900 mg/Dextrose 500 ml @ 0 mls/hr Q0M IV ; Start 10/05/16 at 21: 30; Stop 10/06/16 at 21:29 Dobutamine HCl/ Dextrose 250 ml @ 16.59 mls/ hr TITRATE IV Last administered on 10/06/16 09:55; Admin Dose 16.59 MLS/HR; Start 10/06/16 at 08:30 Miscellaneous Information (*Rx Drug Level Order Reminder*) 1 ONCE ONCE XX ; Start 10/06/16 at 21:00; Stop 10/06/16 at 21:01 JANNETH BURTON NP Oct 06, 2016 13:15
[2016-10-06 14:18] LABS: BILIRUBIN,DIRECT 0.2 mg/dl (0.00-0.20); BILIRUBIN,TOTAL 0.2 mg/dl (0.2-1.3)
--- NOTE | 2016-10-06 15:02 | CONS ---
Date/Time of Note Date/Time of Note DATE: 10/06/16 TIME: 15:00 Assessment/Plan Assessment/Plan Chief Complaint/Hosp Course 50-year-old female resident of a subacute facility was PEG trach admitted with healthcare acquired pneumonia. We have an incomplete database except the patient has multiple comorbid major medical problems including muscular dystrophy morbid obesity type 2 diabetes cardiomyopathy with an EF of 30-35 per. When brought to the emergency room 100% FiO2 for sats were 100 she was diagnosed with bilateral infiltrate and admitted. Patient is a non-historian, reason to be ascertained from patient's old medical records or family members. It is noted in patient's medical records that she has altered mental status etiology unknown. Problems: Consultation Date/Type/Reason Admit Date/Time Sep 15, 2016 at 01:59 Initial Consult Date At long conversation with patient's brother and sister. Patient has been made DO NOT RESUSCITATE is very tearful but resigned to the fact that his will not live. I have asked family to call up other family members to come visit that she will probably pass away within the next 24 hours. I have talked about discontinuing pressors and proceeding with compassionate extubation patient's does not want to extubate. I have asked him whether or not we can keep her more comfortable with a opioid drip of some kind. He is in agreement with that as our other family members. We will start low-dose fentanyl drip. Exam/Review of Systems Vital Signs Vitals Vital Signs Date Time Temp Pulse Resp B/P Pulse Ox O2 Delivery O2 Flow Rate FiO2 10/06/16 14:00 70 24 82/48 97 Mechanical Ventilator 10/06/16 13:55 30 10/06/16 12:30 96.3 Intake and Output 10/05/16 10/05/16 10/06/16 15:00 23:00 07:00 Intake Total 1543.50 ml 1229.20 ml 1144.20 ml Output Total 120 ml 135 ml 100 ml Balance 1423.50 ml 1094.20 ml 1044.20 ml Results Result Diagram: 10/06/16 0552 10/06/16 0552 Results 24 hrs Laboratory Tests Test 10/05/16 18:06 10/05/16 20:38 10/06/16 01:05 10/06/16 05:52 Bedside Glucose 271 H 256 H 234 H White Blood Count 14.4 #H Red Blood Count 3.85 L Hemoglobin 11.0 L Hematocrit 35.9 L Mean Corpuscular Volume 93.2 Mean Corpuscular Hemoglobin 28.6 L Mean Corpuscular Hemoglobin Concent 30.6 L Red Cell Distribution Width 19.9 H Platelet Count 379 Mean Platelet Volume 9.3 Neutrophils % 89.0 H Lymphocytes % 4.2 L Monocytes % 3.9 Eosinophils % 1.9 Basophils % 0.1 Nucleated Red Blood Cells % 0.3 H Neutrophils # (Manual) 13 H Lymphocytes # 0.6 L Monocytes # 0.6 Eosinophils # 0.3 Basophils # 0.0 Nucleated Red Blood Cells # 0.0 Prothrombin Time 23.2 H Prothrombin Time Ratio 1.8 INR International Normalized Ratio 2.04 Activated Partial Thromboplast Time 50.7 H Sodium Level 126 L Potassium Level 3.4 L Chloride Level 91 L Carbon Dioxide Level 17 L Anion Gap 21 H Blood Urea Nitrogen 82 H Creatinine 0.89 Glucose Level 166 Calcium Level 8.7 Phosphorus Level 5.6 H Magnesium Level 2.6 H Total Bilirubin 0.2 Direct Bilirubin 0.20 Indirect Bilirubin 0.0 Aspartate Amino Transf (AST/SGOT) 28 Alanine Aminotransferase (ALT/SGPT) 29 Alkaline Phosphatase 126 H Total Protein 6.3 Albumin 2.9 L Globulin 3.40 H Albumin/Globulin Ratio 0.85 Test 10/06/16 06:00 10/06/16 06:07 10/06/16 10:03 10/06/16 12:29 Blood Gas Specimen Source Blood arterial Arterial Blood Date Drawn 10/06/2016 7:09:00 AM Arterial Blood pH (Temp corrected) 7.240 *L Arterial Blood pCO2 (Temp correct) 32.9 L Arterial Blood pO2 (Temp corrected) 74.3 L Arterial Blood HCO3 13.8 L Arterial Blood Base Excess -12.5 L Arterial Blood Oxygen Saturation 93.6 L Chad Test ACCEPTAB Arterial Blood Gas Puncture Site Right Radial Arterial Blood Carboxyhemoglobin 0.7 Arterial Blood Methemoglobin 0.1 Blood Gas A-a O2 Differential 100.9 H Oxyhemoglobin Percent 92.9 L Total Hemoglobin 12.4 Blood Gas Temperature 37.0 Blood Gas Respiration Rate 24.0 Blood Gas Actual Respiration Rate 24 Blood Gas Modality VENT - AC FiO2 30.0 Blood Gas Tidal Volume 550.0 Blood Gas Low PEEP Setting 5.0 Blood Gas Critical Value Read Back IMACATANGAY RN Blood Gas Notified Whom TM Blood Gas Notified Time 10/06/2016 7:23:00 AM Bedside Glucose 172 191 213 Medications Medications Current Medications Ondansetron HCl (Zofran Inj) 4 mg Q6H PRN IV NAUSEA AND/OR VOMITING Last administered on 09/24/16 11:53; Admin Dose 4 MG; Start 09/15/16 at 06:30 Acetaminophen (Tylenol Tab) 650 mg Q6H PRN PO PAIN LEVEL 1-3 OR FEVER Last administered on 09/16/16 20:10; Admin Dose 650 MG; Start 09/15/16 at 06:30 Acetaminophen (Tylenol Supp) 650 mg Q6H PRN CO PAIN LEVEL 1-3 OR FEVER; Start 09/15/16 at 06:30 Amiodarone HCl (Cordarone) 200 mg DAILY GTB Last administered on 10/06/16 09: 05; Admin Dose 200 MG; Start 09/15/16 at 09:00 Bisacodyl (Dulcolax Supp) 10 mg Q24H PRN CO CONSTIPATION Last administered on 22:12; Admin Dose 10 MG; Start 09/15/16 at 06:30 Chlorhexidine Gluconate (Peridex) 15 ml BID MM Last administered on 10/06/16 09:05; Admin Dose 15 ML; Start 09/15/16 at 09:00 Docusate Sodium (Colace) 200 mg QHS PRN PO CONSTIPATION; Start 09/15/16 at 06:30 Lisinopril (Zestril) 2.5 mg BID GTB Last administered on 09/15/16 09:24; Admin Dose 2.5 MG; Start 09/15/16 at 09:00; Status Future Hold Diphenhydramine HCl (Benadryl) 25 mg Q6H PRN IV ITCHING Last administered on 13:56; Admin Dose 25 MG; Start 09/15/16 at 21:00 Miscellaneous Information 1 ea NOTE XX ; Start 09/17/16 at 12:00 Miscellaneous Information 1 ea NOTE XX ; Start 09/17/16 at 22:45 Glucose (Glutose) 15 gm Q15M PRN PO DECREASED GLUCOSE; Start 09/17/16 at 22:45 Glucose (Glutose) 22.5 gm Q15M PRN PO DECREASED GLUCOSE; Start 09/17/16 at 22:45 Dextrose (D50w Syringe) 25 ml Q15M PRN IV DECREASED GLUCOSE Last administered on 10/04/16 12:26; Admin Dose 25 ML; Start 09/17/16 at 22:45 Dextrose (D50w Syringe) 50 ml Q15M PRN IV DECREASED GLUCOSE; Start 09/17/16 at 22:45 Glucagon (Glucagen) 1 mg Q15M PRN IM DECREASED GLUCOSE; Start 09/17/16 at 22:45 Glucose (Glutose) 15 gm Q15M PRN BUCCAL DECREASED GLUCOSE; Start 09/17/16 at 22: 45 Acetaminophen (Tylenol Tab) 650 mg Q4 PRN GTB PAIN AND OR ELEVATED TEMP Last administered on 09/23/16 00:59; Admin Dose 650 MG; Start 09/18/16 at 11:30 Albuterol (Proventil 0.083% (Neb)) 2.5 mg Q3H PRN NEB WHEEZING AND SOB; Start 09/18/16 at 11:30 Ascorbic Acid (Vitamin C) 500 mg BID PO Last administered on 10/06/16 09:05; Admin Dose 500 MG; Start 09/18/16 at 21:00 Folic Acid (Folic Acid) 1 mg DAILY GTB Last administered on 10/06/16 09:05; Admin Dose 1 MG; Start 09/19/16 at 09:00 Hydroxyzine HCl (Atarax) 25 mg Q8H PRN PO ITCHING Last administered on 21:23; Admin Dose 25 MG; Start 09/18/16 at 11:30 Lorazepam (Ativan) 1 mg Q8 PRN GTB ANXIETY Last administered on 09/22/16 09:17 ; Admin Dose 1 MG; Start 09/18/16 at 11:30 Magnesium Hydroxide (Milk Of Mag) 30 ml DAILY PRN GTB CONSTIPATION Last administered on 09/23/16 17:19; Admin Dose 30 ML; Start 09/18/16 at 11:30 Sodium Biphosphate/ Sodium Phosphate (Fleet Enema Pediatric) 66.6 ml DAILY PRN CO CONSTIPATION; Start 09/18/16 at 11:30 Lactobacillus Acidophilus/ Rhamnosus (Culturelle) 1 cap BID PO Last administered on 10/06/16 09:05; Admin Dose 1 CAP; Start 09/18/16 at 21:00 Lorazepam (Ativan) 1 mg Q6H PRN IV ANXIETY Last administered on 09/28/16 01:48 ; Admin Dose 1 MG; Start 09/19/16 at 18:30 Midodrine (Proamatine) 5 mg TID GTB Last administered on 10/06/16 12:37; Admin Dose 5 MG; Start 09/21/16 at 06:00 Ferrous Sulfate (Ferrous Sulfate (Ec)) 325 mg TID PO Last administered on 12:37; Admin Dose 325 MG; Start 09/21/16 at 10:00 Multivitamins 30 ml 30 ml DAILY GTB Last administered on 10/06/16 09:04; Admin Dose 30 ML; Start 09/21/16 at 10:30 Vancomycin HCl (Vancocin) 250 ml @ 125 mls/hr Q5D IVPB Last administered on 22:00; Admin Dose 125 MLS/HR; Start 09/21/16 at 22:00 Bacitracin (Bacitracin Oint (Ud)) 1 applic BID TOP Last administered on 09:06; Admin Dose 1 APPLIC; Start 09/23/16 at 21:00 Metoclopramide HCl 10 mg 10 mg Q6 IV Last administered on 10/06/16 12:37; Admin Dose 10 MG; Start 09/24/16 at 18:00 Norepinephrine/ Dextrose (Levophed/D5W) 500 ml @ 1.87 mls/hr TITRATE IV Last administered on 10/06/16 07:31; Admin Dose 56.25 MLS/HR; Start 09/25/16 at 07: 00; Status Future hold IV Flush 10 ml 10 ml PRN PRN IV IV PROTOCOL; Start 09/25/16 at 16:00 Meropenem/Sodium Chloride (Merrem 500mg/50 ml(Pmx)) 50 ml @ 200 mls/hr Q12 IVPB Last administered on 10/06/16 09:04; Admin Dose 200 MLS/HR; Start at 21:00 Lansoprazole (Prevacid) 30 mg DAILY@06 GTB Last administered on 10/06/16 06:08 ; Admin Dose 30 MG; Start 09/28/16 at 06:00 Bumetanide 1 mg 1 mg DAILY IV Last administered on 09/30/16 08:32; Admin Dose 1 MG; Start 09/30/16 at 09:00; Status Future Hold Metronidazole (Flagyl 500 Mg (Pmx)) 100 ml @ 100 mls/hr Q8 IVPB Last administered on 10/06/16 13:22; Admin Dose 100 MLS/HR; Start 09/30/16 at 14:30 Insulin Aspart NOVOLOG *MODERATE* ALGORI... Q4 SC Last administered on 12:35; Admin Dose 4 UNIT; Start 09/30/16 at 17:00 Vasopressin/ Dextrose (Vasostrict/D5W) 60 ml @ 1.2 mls/hr Q12H IV Last administered on 10/05/16 22:13; Admin Dose 2.4 MLS/HR; Start 10/01/16 at 11:00 Polyethylene Glycol (Miralax) 17 gm DAILY PEG Last administered on 10/06/16 09 :04; Admin Dose 17 GM; Start 10/03/16 at 11:30 Lactulose (Enulose) 20 gm Q8 PO Last administered on 10/06/16 06:08; Admin Dose 20 GM; Start 10/03/16 at 14:00 Insulin Detemir (Levemir) 30 unit HS SC Last administered on 10/05/16 21:43; Admin Dose 30 UNIT; Start 10/04/16 at 21:00 Rifaximin (Xifaxan) 550 mg BID PO Last administered on 10/06/16 09:05; Admin Dose 550 MG; Start 10/04/16 at 09:00 Lactulose 100 ml 100 ml Q6 CO Last administered on 10/06/16 12:37; Admin Dose 100 ML; Start 10/04/16 at 12:00 Sodium Bicarbonate/ Dextrose (Na Bicarb/D5W) 1,100 ml @ 50 mls/hr Q22H IV Last administered on 10/06/16 08:40; Admin Dose 50 MLS/HR; Start 10/04/16 at 12 :00 Enoxaparin Sodium 40 mg 40 mg DAILY SC Last administered on 10/06/16 10:15; Admin Dose 40 MG; Start 10/06/16 at 09:00 Caspofungin 50 mg/ Sodium Chloride 250 ml @ 250 mls/hr Q24H IVPB ; Start at 15:00 Phenylephrine HCl 80 mg/Dextrose 250 ml @ 0 mls/hr TITRATE IV Last administered on 10/06/16t 14:35; Admin Dose 56.25 MLS/HR; Start 10/05/16 at 21: 30 Amiodarone HCl 900 mg/Dextrose 500 ml @ 0 mls/hr Q0M IV ; Start 10/05/16 at 21: 30; Stop 10/06/16 at 21:29 Dobutamine HCl/ Dextrose 250 ml @ 16.59 mls/ hr TITRATE IV Last administered on 10/06/16 09:55; Admin Dose 16.59 MLS/HR; Start 10/06/16 at 08:30 Miscellaneous Information 1 ONCE ONCE XX ; Start 10/06/16 at 21:00; Stop at 21:01 Fentanyl (Sublimaze) 100 ml @ 0 mls/hr TITRATE IV ; Start 10/06/16 at 15:00; Status UNV GOVIND PAGE Oct 06, 2016 15:02
[2016-10-06] MEDS: CASPOFUNGIN 50 MG in SOD CHLORIDE 0.9% 250 ML IVPB SCH (15:26)
[2016-10-06] MEDS: FENTAnyl (DRIP) 1000 mcg/100mL 100 ML IV SCH (15:33)
--- NOTE | 2016-10-06 17:33 | PN ---
Date/Time of Note Date/Time of Note DATE: 10/06/16 TIME: 17:32 Assessment/Plan VTE Prophylaxis VTE Prophylaxis Intervention: other Lines/Catheters IV Catheter Type (from [facility]): PICC Line Central line still needed: Yes Urinary Cath still in place: Yes Reason Cath still needed: urinary retention Assessment/Plan Chief Complaint/Hosp Course renal follow up SUBJECTIVE DATA: Patient remains in ICU, but stable. No other events noted. No hemoptysis, hematemesis, hematochezia. OBJECTIVE DATA: HEENT: Head is normocephalic. NECK: Supple. HEART: Regular rate. LUNGS: Diminished breath sounds at the base. ABDOMEN: Soft, nontender to palpation. No rebound or guarding. EXTREMITIES: Negative for clubbing, cyanosis. Positive edema. DERMATOLOGIC: No rashes. MUSCULOSKELETAL: No joint effusion. NEUROLOGIC: No change in exam. MEDICATIONS: Reviewed. 1. Oliguric acute kidney injury on top of chronic kidney disease stage IIIB/IV. Etiology of acute kidney injury secondary to sepsis and acute tubular necrosis. She is volume overloaded and has pulm edema. will decrease free water flushes as the patient is becoming more hyponatremic ( discussed with nurse) 2. Chronic kidney disease, etiology multifactorial. 3. Sepsis, status post shock. The patient is currently off pressor support. Continue antibiotic therapy. Continue gentle volume expansion. Follow up cultures. 4. Mineral bone disorder. Continue to monitor calcium and phosphorus levels. 5. Metabolic acidosis secondary to acute kidney injury. 6. Hypokalemia. Repleted. 7. Anemia. Monitor H and H levels dc epogen 8. Ventilatory-dependent respiratory failure. Vent settings reviewed. ABGs reviewed. Continue to monitor. 9. History of cardiomyopathy. Continue current treatment plan. 10. Dysphagia, status post percutaneous endoscopic gastrostomy. 11. Muscular dystrophy. 12. Acute on chronic congestive heart failure exacerbation. Continue current medical management. Problems: Exam/Review of Systems Vital Signs Vitals Vital Signs Date Time Temp Pulse Resp B/P Pulse Ox O2 Delivery O2 Flow Rate FiO2 10/06/16 17:15 70 24 88/60 98 Mechanical Ventilator 10/06/16 16:00 97.0 10/06/16 15:50 30 Intake and Output 10/05/16 10/05/16 10/06/16 15:00 23:00 07:00 Intake Total 1543.50 ml 1229.20 ml 1144.20 ml Output Total 120 ml 135 ml 100 ml Balance 1423.50 ml 1094.20 ml 1044.20 ml Results Result Diagram: 10/06/16 0552 10/06/16 0552 Results 24 hrs Laboratory Tests Test 10/05/16 18:06 10/05/16 20:38 10/06/16 01:05 10/06/16 05:52 Bedside Glucose 271 H 256 H 234 H White Blood Count 14.4 #H Red Blood Count 3.85 L Hemoglobin 11.0 L Hematocrit 35.9 L Mean Corpuscular Volume 93.2 Mean Corpuscular Hemoglobin 28.6 L Mean Corpuscular Hemoglobin Concent 30.6 L Red Cell Distribution Width 19.9 H Platelet Count 379 Mean Platelet Volume 9.3 Neutrophils % 89.0 H Lymphocytes % 4.2 L Monocytes % 3.9 Eosinophils % 1.9 Basophils % 0.1 Nucleated Red Blood Cells % 0.3 H Neutrophils # (Manual) 13 H Lymphocytes # 0.6 L Monocytes # 0.6 Eosinophils # 0.3 Basophils # 0.0 Nucleated Red Blood Cells # 0.0 Prothrombin Time 23.2 H Prothrombin Time Ratio 1.8 INR International Normalized Ratio 2.04 Activated Partial Thromboplast Time 50.7 H Sodium Level 126 L Potassium Level 3.4 L Chloride Level 91 L Carbon Dioxide Level 17 L Anion Gap 21 H Blood Urea Nitrogen 82 H Creatinine 0.89 Glucose Level 166 Calcium Level 8.7 Phosphorus Level 5.6 H Magnesium Level 2.6 H Total Bilirubin 0.2 Direct Bilirubin 0.20 Indirect Bilirubin 0.0 Aspartate Amino Transf (AST/SGOT) 28 Alanine Aminotransferase (ALT/SGPT) 29 Alkaline Phosphatase 126 H Total Protein 6.3 Albumin 2.9 L Globulin 3.40 H Albumin/Globulin Ratio 0.85 Test 10/06/16 06:00 10/06/16 06:07 10/06/16 10:03 10/06/16 12:29 Blood Gas Specimen Source Blood arterial Arterial Blood Date Drawn 10/06/2016 7:09:00 AM Arterial Blood pH (Temp corrected) 7.240 *L Arterial Blood pCO2 (Temp correct) 32.9 L Arterial Blood pO2 (Temp corrected) 74.3 L Arterial Blood HCO3 13.8 L Arterial Blood Base Excess -12.5 L Arterial Blood Oxygen Saturation 93.6 L Chad Test ACCEPTAB Arterial Blood Gas Puncture Site Right Radial Arterial Blood Carboxyhemoglobin 0.7 Arterial Blood Methemoglobin 0.1 Blood Gas A-a O2 Differential 100.9 H Oxyhemoglobin Percent 92.9 L Total Hemoglobin 12.4 Blood Gas Temperature 37.0 Blood Gas Respiration Rate 24.0 Blood Gas Actual Respiration Rate 24 Blood Gas Modality VENT - AC FiO2 30.0 Blood Gas Tidal Volume 550.0 Blood Gas Low PEEP Setting 5.0 Blood Gas Critical Value Read Back CHERYL RN Blood Gas Notified Whom TM Blood Gas Notified Time 10/06/2016 7:23:00 AM Bedside Glucose 172 191 213 Test 10/06/16 17:12 Bedside Glucose 192 Medications Medications Current Medications Ondansetron HCl (Zofran Inj) 4 mg Q6H PRN IV NAUSEA AND/OR VOMITING Last administered on 09/24/16 11:53; Admin Dose 4 MG; Start 09/15/16 at 06:30 Acetaminophen (Tylenol Tab) 650 mg Q6H PRN PO PAIN LEVEL 1-3 OR FEVER Last administered on 09/16/16 20:10; Admin Dose 650 MG; Start 09/15/16 at 06:30 Acetaminophen (Tylenol Supp) 650 mg Q6H PRN CA PAIN LEVEL 1-3 OR FEVER; Start 09/15/16 at 06:30 Amiodarone HCl (Cordarone) 200 mg DAILY GTB Last administered on 10/06/16 09: 05; Admin Dose 200 MG; Start 09/15/16 at 09:00 Bisacodyl (Dulcolax Supp) 10 mg Q24H PRN CA CONSTIPATION Last administered on 22:12; Admin Dose 10 MG; Start 09/15/16 at 06:30 Chlorhexidine Gluconate (Peridex) 15 ml BID MM Last administered on 10/06/16 09:05; Admin Dose 15 ML; Start 09/15/16 at 09:00 Docusate Sodium (Colace) 200 mg QHS PRN PO CONSTIPATION; Start 09/15/16 at 06:30 Lisinopril (Zestril) 2.5 mg BID GTB Last administered on 09/15/16 09:24; Admin Dose 2.5 MG; Start 09/15/16 at 09:00; Status Future Hold Diphenhydramine HCl (Benadryl) 25 mg Q6H PRN IV ITCHING Last administered on 13:56; Admin Dose 25 MG; Start 09/15/16 at 21:00 Miscellaneous Information 1 ea NOTE XX ; Start 09/17/16 at 12:00 Miscellaneous Information 1 ea NOTE XX ; Start 09/17/16 at 22:45 Glucose (Glutose) 15 gm Q15M PRN PO DECREASED GLUCOSE; Start 09/17/16 at 22:45 Glucose (Glutose) 22.5 gm Q15M PRN PO DECREASED GLUCOSE; Start 09/17/16 at 22:45 Dextrose (D50w Syringe) 25 ml Q15M PRN IV DECREASED GLUCOSE Last administered on 10/04/16 12:26; Admin Dose 25 ML; Start 09/17/16 at 22:45 Dextrose (D50w Syringe) 50 ml Q15M PRN IV DECREASED GLUCOSE; Start 09/17/16 at 22:45 Glucagon (Glucagen) 1 mg Q15M PRN IM DECREASED GLUCOSE; Start 09/17/16 at 22:45 Glucose (Glutose) 15 gm Q15M PRN BUCCAL DECREASED GLUCOSE; Start 09/17/16 at 22: 45 Acetaminophen (Tylenol Tab) 650 mg Q4 PRN GTB PAIN AND OR ELEVATED TEMP Last administered on 09/23/16 00:59; Admin Dose 650 MG; Start 09/18/16 at 11:30 Albuterol (Proventil 0.083% (Neb)) 2.5 mg Q3H PRN NEB WHEEZING AND SOB; Start 09/18/16 at 11:30 Ascorbic Acid (Vitamin C) 500 mg BID PO Last administered on 10/06/16 09:05; Admin Dose 500 MG; Start 09/18/16 at 21:00 Folic Acid (Folic Acid) 1 mg DAILY GTB Last administered on 10/06/16 09:05; Admin Dose 1 MG; Start 09/19/16 at 09:00 Hydroxyzine HCl (Atarax) 25 mg Q8H PRN PO ITCHING Last administered on 21:23; Admin Dose 25 MG; Start 09/18/16 at 11:30 Lorazepam (Ativan) 1 mg Q8 PRN GTB ANXIETY Last administered on 09/22/16 09:17 ; Admin Dose 1 MG; Start 09/18/16 at 11:30 Magnesium Hydroxide (Milk Of Mag) 30 ml DAILY PRN GTB CONSTIPATION Last administered on 09/23/16 17:19; Admin Dose 30 ML; Start 09/18/16 at 11:30 Sodium Biphosphate/ Sodium Phosphate (Fleet Enema Pediatric) 66.6 ml DAILY PRN CA CONSTIPATION; Start 09/18/16 at 11:30 Lactobacillus Acidophilus/ Rhamnosus (Culturelle) 1 cap BID PO Last administered on 10/06/16 09:05; Admin Dose 1 CAP; Start 09/18/16 at 21:00 Lorazepam (Ativan) 1 mg Q6H PRN IV ANXIETY Last administered on 09/28/16 01:48 ; Admin Dose 1 MG; Start 09/19/16 at 18:30 Midodrine (Proamatine) 5 mg TID GTB Last administered on 10/06/16 12:37; Admin Dose 5 MG; Start 09/21/16 at 06:00 Ferrous Sulfate (Ferrous Sulfate (Ec)) 325 mg TID PO Last administered on 12:37; Admin Dose 325 MG; Start 09/21/16 at 10:00 Multivitamins 30 ml 30 ml DAILY GTB Last administered on 10/06/16 09:04; Admin Dose 30 ML; Start 09/21/16 at 10:30 Vancomycin HCl (Vancocin) 250 ml @ 125 mls/hr Q5D IVPB Last administered on 22:00; Admin Dose 125 MLS/HR; Start 09/21/16 at 22:00 Bacitracin (Bacitracin Oint (Ud)) 1 applic BID TOP Last administered on 09:06; Admin Dose 1 APPLIC; Start 09/23/16 at 21:00 Metoclopramide HCl (Reglan) 10 mg Q6 IV Last administered on 10/06/16 12:37; Admin Dose 10 MG; Start 09/24/16 at 18:00 IV Flush 10 ml 10 ml PRN PRN IV IV PROTOCOL; Start 09/25/16 at 16:00 Meropenem/Sodium Chloride (Merrem 500mg/50 ml(Pmx)) 50 ml @ 200 mls/hr Q12 IVPB Last administered on 10/06/16 09:04; Admin Dose 200 MLS/HR; Start at 21:00 Lansoprazole (Prevacid) 30 mg DAILY@06 GTB Last administered on 10/06/16 06:08 ; Admin Dose 30 MG; Start 09/28/16 at 06:00 Bumetanide 1 mg 1 mg DAILY IV Last administered on 09/30/16 08:32; Admin Dose 1 MG; Start 09/30/16 at 09:00; Status Future Hold Metronidazole (Flagyl 500 Mg (Pmx)) 100 ml @ 100 mls/hr Q8 IVPB Last administered on 10/06/16 13:22; Admin Dose 100 MLS/HR; Start 09/30/16 at 14:30 Insulin Aspart NOVOLOG *MODERATE* ALGORI... Q4 SC Last administered on 17:17; Admin Dose 4 UNIT; Start 09/30/16 at 17:00 Vasopressin/ Dextrose (Vasostrict/D5W) 60 ml @ 1.2 mls/hr Q12H IV Last administered on 10/05/16 22:13; Admin Dose 2.4 MLS/HR; Start 10/01/16 at 11:00 Polyethylene Glycol (Miralax) 17 gm DAILY PEG Last administered on 10/06/16 09 :04; Admin Dose 17 GM; Start 10/03/16 at 11:30 Lactulose (Enulose) 20 gm Q8 PO Last administered on 10/06/16 06:08; Admin Dose 20 GM; Start 10/03/16 at 14:00 Insulin Detemir (Levemir) 30 unit HS SC Last administered on 10/05/16 21:43; Admin Dose 30 UNIT; Start 10/04/16 at 21:00 Rifaximin (Xifaxan) 550 mg BID PO Last administered on 10/06/16 09:05; Admin Dose 550 MG; Start 10/04/16 at 09:00 Lactulose 100 ml 100 ml Q6 CA Last administered on 10/06/16 12:37; Admin Dose 100 ML; Start 10/04/16 at 12:00 Sodium Bicarbonate/ Dextrose (Na Bicarb/D5W) 1,100 ml @ 50 mls/hr Q22H IV Last administered on 10/06/16 08:40; Admin Dose 50 MLS/HR; Start 10/04/16 at 12 :00 Enoxaparin Sodium 40 mg 40 mg DAILY SC Last administered on 10/06/16 10:15; Admin Dose 40 MG; Start 10/06/16 at 09:00 Caspofungin 50 mg/ Sodium Chloride 250 ml @ 250 mls/hr Q24H IVPB Last administered on 10/06/16 15:26; Admin Dose 250 MLS/HR; Start 10/06/16 at 15:00 Phenylephrine HCl 80 mg/Dextrose 250 ml @ 0 mls/hr TITRATE IV Last administered on 10/06/16 14:35; Admin Dose 56.25 MLS/HR; Start 10/05/16 at 21: 30 Amiodarone HCl 900 mg/Dextrose 500 ml @ 0 mls/hr Q0M IV ; Start 10/05/16 at 21: 30; Stop 10/06/16 at 21:29 Dobutamine HCl/ Dextrose 250 ml @ 16.59 mls/ hr TITRATE IV Last administered on 10/06/16 09:55; Admin Dose 16.59 MLS/HR; Start 10/06/16 at 08:30 Miscellaneous Information 1 ONCE ONCE XX ; Start 10/06/16 at 21:00; Stop at 21:01 Fentanyl 100 ml @ 1.5 mls/hr TITRATE IV Last administered on 10/06/16 15:33; Admin Dose 1.5 MLS/HR; Start 10/06/16 at 15:00 Norepinephrine/ Dextrose (Levophed/D5W) 250 ml @ 0.46 mls/hr TITRATE IV ; Start 10/06/16 at 17:30 ANJEL AMADOR DO Oct 06, 2016 17:32
[2016-10-06] MEDS ORDERED: BUMETANIDE 1 MG INJ IV SCH (18:00)
[2016-10-06] MEDS: INSULIN DETEMIR [LEVEMIR] 3ML CART SC SCH (20:14)
[2016-10-06] MEDS: VANCOMYCIN 1 GM in NS 250 ML IVPB SCH (22:23)
[2016-10-06] MEDS: PHENYLephrine 160 MG in DEXTROSE 5% 484 ML IV SCH (23:43)
[2016-10-07] VITALS (105 sets, daily range): BP systolic 69–102; BP diastolic 39–72; PULSE 69–86; RESP 16–28
[2016-10-07] MEDS: NORepinephrine 32 MG in DEXTROSE 5% 218 ML IV SCH ×2 (01:20→17:44)
[2016-10-07] MEDS: DOBUTamine/D5W 2 MG/ML DRIP 250 ML IV SCH ×2 (01:28→13:53)
[2016-10-07] MEDS: INSULIN ASPART [NOVOLOG] 3 ML PEN SC SCH ×6 (01:29→20:50)
[2016-10-07] MEDS: ALBUTEROL 18 GM INHALER INH SCH ×6 (01:31→21:04)
[2016-10-07] MEDS: LACTULOSE 30ML CUP PO SCH ×3 (05:06→22:15)
[2016-10-07] MEDS: metroNIDAZOLE 500 MG/NS (PMX) 100 ML IVPB SCH ×3 (05:06→22:15)
[2016-10-07] MEDS: LANSOPRAZOLE 30 MG CAP GTB SCH (05:06)
[2016-10-07] MEDS: METOCLOPRAMIDE 10 MG INJ IV SCH ×3 (05:06→17:41)
[2016-10-07] MEDS: LACTULOSE ENEMA 1,000 ML BTL PR SCH ×3 (05:07→18:19)
[2016-10-07] MEDS: BUMETANIDE 2 MG in DEXTROSE 5% 17 ML IV SCH ×2 (05:09→17:43)
[2016-10-07] MEDS: SODIUM BICARBONATE (IV ADD) 100 MEQ in DEXTROSE 5% 1,000 ML IV SCH (06:39)
[2016-10-07 06:57] LABS: ABNORMAL IP MESSAGE 1; BASOPHILS % 0.2 % (0.0-2.0); EOSINOPHILS # 0.6 10^3/ul (0.0-0.5); EOSINOPHILS % 4.7 % (0.0-7.0); HEMATOCRIT 31.7 % (37.0-47.0); LYMPHOCYTES # 0.6 10^3/ul (0.8-2.9); LYMPHOCYTES % 4.3 % (15.0-51.0); MEAN CORPUSCULAR HEMOGLOBIN 28.6 pg (29.0-33.0); MEAN CORPUSCULAR HGB CONC 31.5 g/dl (32.0-37.0); MEAN CORPUSCULAR VOLUME 90.6 fl (82.0-101.0); MEAN PLATELET VOLUME 9.5 fl (7.4-10.4); MONOCYTE # 0.5 10^3/ul (0.3-0.9); MONOCYTES % 4.2 % (0.0-11.0); NEUTROPHILS % 85.9 % (39.0-77.0); NUCLEATED RED BLOOD CELLS% 0.2 /100WBC (0.0-0.0); PLATELET COUNT 283 10^3/UL (140-415); RED CELL DISTRIBUTION WIDTH 19.4 % (11.5-14.5); WHITE BLOOD COUNT 12.7 10^3/ul (4.8-10.8)
[2016-10-07 07:04] LABS: ALBUMIN 2.4 g/dl (3.3-4.9); ALBUMIN/GLOBULIN RATIO 0.72; CREATININE 0.93 mg/dl (0.44-1.00); POTASSIUM 3.3 mmol/L (3.5-5.1); TOTAL PROTEIN 5.7 g/dl (6.1-8.1)
[2016-10-07 07:07] LABS: POSITIVE DIFF @See below
[2016-10-07 07:11] LABS: INR 2.5; PROTIME 27.3 Sec (12.2-14.2); PT RATIO 2.1
[2016-10-07 07:12] LABS: PARTIAL THROMBOPLASTIN TIME 54.5 Sec (25.0-35.0)
[2016-10-07] MEDS: PHENYLephrine 160 MG in DEXTROSE 5% 484 ML IV SCH ×2 (07:56→16:58)
[2016-10-07 08:01] LABS: BILIRUBIN,DIRECT 0.2 mg/dl (0.00-0.20); BILIRUBIN,TOTAL 0.2 mg/dl (0.2-1.3)
--- NOTE | 2016-10-07 09:18 | CONS ---
Date/Time of Note Date/Time of Note DATE: 10/07/16 TIME: 09:15 Assessment/Plan Assessment/Plan Additional Assessment/Plan Ventilator setting; AC of 24, tidal volume 550, PEEP of 5, 30% FiO2. Patient currently on dobutamine at 5 mics per kilogram per minute. Fentanyl 15 mics per hour, Levophed 30 mics per minute, vasopressin 0.04 U/min, phenylephrine drip at 300 mics per minute. Assessment and recommendations; 1. Patient admitted with severe sepsis and pneumonia as well as pulmonary edema with refractory shock. 2. Anemia. 3. Markedly worsened overall clinical status. Continue current supportive care. Patient's family likely will opt for possible terminal extubation sometime today. Prognosis appears extremely poor. 35 minutes of critical care time was spent evaluating the patient. Consultation Date/Type/Reason Admit Date/Time Sep 15, 2016 at 01:59 Initial Consult Date 09/16/16 Type of Consultation: Pulmonary/critical care 24 HR Interval Summary Free Text/Dictation Patient condition remains extremely critical. On multiple pressor agents for severe hypotension. Patient remains mildly sedated. General exam; young female, morbidly obese, on ventilator via tracheostomy, sedated. Currently in no distress. Exam/Review of Systems Vital Signs Vitals Vital Signs Date Time Temp Pulse Resp B/P Pulse Ox O2 Delivery O2 Flow Rate FiO2 10/07/16 08:15 70 24 82/54 98 Mechanical Ventilator 10/07/16 08:00 30 10/07/16 08:00 97.9 Intake and Output 10/06/16 10/06/16 10/07/16 14:59 22:59 06:59 Intake Total 1666.76 ml 1886.67 ml 1684.22 ml Output Total 80 ml 60 ml 50 ml Balance 1586.76 ml 1826.67 ml 1634.22 ml Exam HEENT exam; supple neck, JVD difficult to see because of short neck. Patient has fair dentition. Pupils are small bilaterally. Tracheostomy placed with clean insertion site. Chest exam; bilateral crackles. S1-S2 audible, no murmurs. Abdomen exam; soft, there is abdominal wall edema present. G-tube in place. Bowel sounds are very sluggish. Extremity exam; 2+ anasarca. [employer] exam; patient is sedated. Results Result Diagram: 10/07/16 0551 10/07/16 0551 Results 24 hrs Laboratory Tests Test 10/06/16 10:03 10/06/16 12:29 10/06/16 17:12 10/06/16 20:09 Bedside Glucose 191 213 192 193 Test 10/06/16 21:15 10/07/16 01:23 10/07/16 05:06 10/07/16 05:51 Vancomycin Level Trough 12.7 Bedside Glucose 176 143 White Blood Count 12.7 H Red Blood Count 3.50 L Hemoglobin 10.0 L Hematocrit 31.7 L Mean Corpuscular Volume 90.6 Mean Corpuscular Hemoglobin 28.6 L Mean Corpuscular Hemoglobin Concent 31.5 L Red Cell Distribution Width 19.4 H Platelet Count 283 # Mean Platelet Volume 9.5 Neutrophils % 85.9 H Lymphocytes % 4.3 L Monocytes % 4.2 Eosinophils % 4.7 Basophils % 0.2 Nucleated Red Blood Cells % 0.2 H Neutrophils # (Manual) 11 H Lymphocytes # 0.6 L Monocytes # 0.5 Eosinophils # 0.6 H Basophils # 0.0 Nucleated Red Blood Cells # 0.0 Prothrombin Time 27.3 H Prothrombin Time Ratio 2.1 INR International Normalized Ratio 2.50 Activated Partial Thromboplast Time 54.5 H Sodium Level 121 L Potassium Level 3.3 L Chloride Level 89 L Carbon Dioxide Level 18 L Anion Gap 17 H Blood Urea Nitrogen 78 H Creatinine 0.93 Glucose Level 115 # Calcium Level 8.0 L Total Bilirubin 0.2 Direct Bilirubin 0.20 Indirect Bilirubin 0.0 Aspartate Amino Transf (AST/SGOT) 23 Alanine Aminotransferase (ALT/SGPT) 27 Alkaline Phosphatase 87 Total Protein 5.7 L Albumin 2.4 L Globulin 3.30 H Albumin/Globulin Ratio 0.72 Medications Medications Current Medications Ondansetron HCl (Zofran Inj) 4 mg Q6H PRN IV NAUSEA AND/OR VOMITING Last administered on 09/24/16 11:53; Admin Dose 4 MG; Start 09/15/16 at 06:30 Acetaminophen (Tylenol Tab) 650 mg Q6H PRN PO PAIN LEVEL 1-3 OR FEVER Last administered on 09/16/16 20:10; Admin Dose 650 MG; Start 09/15/16 at 06:30 Acetaminophen (Tylenol Supp) 650 mg Q6H PRN HI PAIN LEVEL 1-3 OR FEVER; Start 09/15/16 at 06:30 Amiodarone HCl (Cordarone) 200 mg DAILY GTB Last administered on 10/06/16 09: 05; Admin Dose 200 MG; Start 09/15/16 at 09:00 Bisacodyl (Dulcolax Supp) 10 mg Q24H PRN HI CONSTIPATION Last administered on 22:12; Admin Dose 10 MG; Start 09/15/16 at 06:30 Chlorhexidine Gluconate (Peridex) 15 ml BID MM Last administered on 10/06/16 20:10; Admin Dose 15 ML; Start 09/15/16 at 09:00 Docusate Sodium (Colace) 200 mg QHS PRN PO CONSTIPATION; Start 09/15/16 at 06:30 Lisinopril (Zestril) 2.5 mg BID GTB Last administered on 09/15/16 09:24; Admin Dose 2.5 MG; Start 09/15/16 at 09:00; Status Future Hold Diphenhydramine HCl (Benadryl) 25 mg Q6H PRN IV ITCHING Last administered on 13:56; Admin Dose 25 MG; Start 09/15/16 at 21:00 Miscellaneous Information 1 ea NOTE XX ; Start 09/17/16 at 22:45 Glucose (Glutose) 15 gm Q15M PRN PO DECREASED GLUCOSE; Start 09/17/16 at 22:45 Glucose (Glutose) 22.5 gm Q15M PRN PO DECREASED GLUCOSE; Start 09/17/16 at 22:45 Dextrose (D50w Syringe) 25 ml Q15M PRN IV DECREASED GLUCOSE Last administered on 10/04/16 12:26; Admin Dose 25 ML; Start 09/17/16 at 22:45 Dextrose (D50w Syringe) 50 ml Q15M PRN IV DECREASED GLUCOSE; Start 09/17/16 at 22:45 Glucagon (Glucagen) 1 mg Q15M PRN IM DECREASED GLUCOSE; Start 09/17/16 at 22:45 Glucose (Glutose) 15 gm Q15M PRN BUCCAL DECREASED GLUCOSE; Start 09/17/16 at 22: 45 Acetaminophen (Tylenol Tab) 650 mg Q4 PRN GTB PAIN AND OR ELEVATED TEMP Last administered on 09/23/16 00:59; Admin Dose 650 MG; Start 09/18/16 at 11:30 Albuterol (Proventil 0.083% (Neb)) 2.5 mg Q3H PRN NEB WHEEZING AND SOB; Start 09/18/16 at 11:30 Ascorbic Acid (Vitamin C) 500 mg BID PO Last administered on 10/06/16 20:10; Admin Dose 500 MG; Start 09/18/16 at 21:00 Folic Acid (Folic Acid) 1 mg DAILY GTB Last administered on 10/06/16 09:05; Admin Dose 1 MG; Start 09/19/16 at 09:00 Hydroxyzine HCl (Atarax) 25 mg Q8H PRN PO ITCHING Last administered on 21:23; Admin Dose 25 MG; Start 09/18/16 at 11:30 Lorazepam (Ativan) 1 mg Q8 PRN GTB ANXIETY Last administered on 09/22/16 09:17 ; Admin Dose 1 MG; Start 09/18/16 at 11:30 Magnesium Hydroxide (Milk Of Mag) 30 ml DAILY PRN GTB CONSTIPATION Last administered on 09/23/16 17:19; Admin Dose 30 ML; Start 09/18/16 at 11:30 Sodium Biphosphate/ Sodium Phosphate (Fleet Enema Pediatric) 66.6 ml DAILY PRN HI CONSTIPATION; Start 09/18/16 at 11:30 Lactobacillus Acidophilus/ Rhamnosus (Culturelle) 1 cap BID PO Last administered on 10/06/16 20:10; Admin Dose 1 CAP; Start 09/18/16 at 21:00 Lorazepam (Ativan) 1 mg Q6H PRN IV ANXIETY Last administered on 09/28/16 01:48 ; Admin Dose 1 MG; Start 09/19/16 at 18:30 Midodrine (Proamatine) 5 mg TID GTB Last administered on 10/06/16 20:10; Admin Dose 5 MG; Start 09/21/16 at 06:00 Ferrous Sulfate (Ferrous Sulfate (Ec)) 325 mg TID PO Last administered on 20:10; Admin Dose 325 MG; Start 09/21/16 at 10:00 Multivitamins 30 ml 30 ml DAILY GTB Last administered on 10/06/16 09:04; Admin Dose 30 ML; Start 09/21/16 at 10:30 Vancomycin HCl (Vancocin) 250 ml @ 125 mls/hr Q5D IVPB Last administered on 22:23; Admin Dose 125 MLS/HR; Start 09/21/16 at 22:00 Bacitracin (Bacitracin Oint (Ud)) 1 applic BID TOP Last administered on 20:10; Admin Dose 1 APPLIC; Start 09/23/16 at 21:00 Metoclopramide HCl (Reglan) 10 mg Q6 IV Last administered on 10/07/16 05:06; Admin Dose 10 MG; Start 09/24/16 at 18:00 IV Flush 10 ml 10 ml PRN PRN IV IV PROTOCOL; Start 09/25/16 at 16:00 Meropenem/Sodium Chloride (Merrem 500mg/50 ml(Pmx)) 50 ml @ 200 mls/hr Q12 IVPB Last administered on 10/06/16 20:09; Admin Dose 200 MLS/HR; Start at 21:00 Lansoprazole (Prevacid) 30 mg DAILY@06 GTB Last administered on 10/07/16 05:06 ; Admin Dose 30 MG; Start 09/28/16 at 06:00 Bumetanide 1 mg 1 mg DAILY IV Last administered on 09/30/16 08:32; Admin Dose 1 MG; Start 09/30/16 at 09:00; Status Future Hold Metronidazole (Flagyl 500 Mg (Pmx)) 100 ml @ 100 mls/hr Q8 IVPB Last administered on 10/07/16 05:06; Admin Dose 100 MLS/HR; Start 09/30/16 at 14:30 Insulin Aspart NOVOLOG *MODERATE* ALGORI... Q4 SC Last administered on 06:03; Admin Dose 2 UNIT; Start 09/30/16 at 17:00 Vasopressin/ Dextrose (Vasostrict/D5W) 60 ml @ 1.2 mls/hr Q12H IV Last administered on 10/06/16 22:21; Admin Dose 2.4 MLS/HR; Start 10/01/16 at 11:00 Polyethylene Glycol (Miralax) 17 gm DAILY PEG Last administered on 10/06/16 09 :04; Admin Dose 17 GM; Start 10/03/16 at 11:30 Lactulose (Enulose) 20 gm Q8 PO Last administered on 10/07/16 05:06; Admin Dose 20 GM; Start 10/03/16 at 14:00 Insulin Detemir (Levemir) 30 unit HS SC Last administered on 10/06/16 20:14; Admin Dose 30 UNIT; Start 10/04/16 at 21:00 Rifaximin (Xifaxan) 550 mg BID PO Last administered on 10/06/16 20:10; Admin Dose 550 MG; Start 10/04/16 at 09:00 Lactulose 100 ml 100 ml Q6 HI Last administered on 10/06/16 12:37; Admin Dose 100 ML; Start 10/04/16 at 12:00 Sodium Bicarbonate/ Dextrose (Na Bicarb/D5W) 1,100 ml @ 50 mls/hr Q22H IV Last administered on 10/07/16 06:39; Admin Dose 50 MLS/HR; Start 10/04/16 at 12 :00 Enoxaparin Sodium 40 mg 40 mg DAILY SC Last administered on 10/06/16 10:15; Admin Dose 40 MG; Start 10/06/16 at 09:00 Caspofungin 50 mg/ Sodium Chloride 250 ml @ 250 mls/hr Q24H IVPB Last administered on 10/06/16 15:26; Admin Dose 250 MLS/HR; Start 10/06/16 at 15:00 Dobutamine HCl/ Dextrose 250 ml @ 16.59 mls/ hr TITRATE IV Last administered on 10/07/16 01:28; Admin Dose 16.59 MLS/HR; Start 10/06/16 at 08:30 Fentanyl 100 ml @ 1.5 mls/hr TITRATE IV Last administered on 10/06/16 15:33; Admin Dose 1.5 MLS/HR; Start 10/06/16 at 15:00 Norepinephrine 32 mg/Dextrose 250 ml @ 0.46 mls/hr TITRATE IV Last administered on 10/07/16 01:20; Admin Dose 14.06 MLS/HR; Start 10/06/16 at 17: 30 Phenylephrine HCl/ Dextrose (Jose Eduardo-Syneph/D5W) 500 ml @ 0 mls/hr TITRATE IV Last administered on 10/07/16 07:56; Admin Dose 56.25 MLS/HR; Start 10/06/16 at 23: 00 RAMON COWAN Oct 07, 2016 09:18
[2016-10-07] MEDS: LACTOBACILLUS RHAMNOSUS CAP PO SCH ×2 (09:20→20:45)
[2016-10-07] MEDS: RIFAXIMIN 550 MG TAB PO SCH ×2 (09:20→20:39)
[2016-10-07] MEDS: ASCORBIC ACID 500 MG TAB PO SCH ×2 (09:20→20:39)
[2016-10-07] MEDS: CHLORHEXIDINE GLUCONATE 15 ML UD CUP MM SCH ×2 (09:20→20:39)
[2016-10-07] MEDS: POLYETHYLENE GLYCOL 17 GM PACKET PEG SCH (09:20)
[2016-10-07] MEDS: FERROUS SULFATE (EC) 325 MG TAB PO SCH ×3 (09:20→20:39)
[2016-10-07] MEDS: AMIODARONE 200 MG TAB GTB SCH (09:20)
[2016-10-07] MEDS: FOLIC ACID 1 MG TAB GTB SCH (09:20)
[2016-10-07] MEDS: BACITRACIN 0.9 GM OINT TOP SCH ×2 (09:20→20:39)
[2016-10-07] MEDS: MULTIVITAMINS 30 ML CUP GTB SCH (09:20)
[2016-10-07] MEDS: MIDODRINE 5 MG TAB GTB SCH ×3 (09:21→20:39)
--- NOTE | 2016-10-07 09:38 | RADRPT ---
PROCEDURE: XR Chest. CLINICAL INDICATION: Respiratory failure TECHNIQUE: Single frontal chest x-ray. COMPARISON: 10/06/2016 FINDINGS: Extensive bilateral interstitial infiltrate/edema is again noted. There is cardiomegaly. Small ple ural effusions are present left greater than right. There is no pneumothorax Tracheostomy is in lilia ce. Left-sided multichamber AICD is in place. Right-sided PICC line remains in satisfactory positi on. The osseous structures are intact. IMPRESSION: 1. No substantial change in extensive bilateral interstitial infiltrates/edema. RPTAT: [facility] .César Singh MD, MD Date Time Electronically viewed and signed by .César Singh MD, on 10/07/2016 09:37 .O/
--- NOTE | 2016-10-07 09:41 | CONS ---
Date/Time of Note Date/Time of Note DATE: 10/07/16 TIME: 09:37 Assessment/Plan Assessment/Plan Chief Complaint/Hosp Course Spoke to patient's family this morning patient is still on 4 pressors, FiO2 of 30%, nonresponsive to any verbal or tactile stimulation. I expressed the patient's family that she is living hour by hour she is currently a DO NOT RESUSCITATE, refused compassionate extubation yesterday. We will continue to support, give them hope, control symptoms she is currently on a low dose of fentanyl continuous. Goals of care discussed with her , sisters and brother yesterday, prognosis always discussed on a daily basis. Problems: Consultation Date/Type/Reason Admit Date/Time Sep 15, 2016 at 01:59 Initial Consult Date Type of Consultation: Palliative care Exam/Review of Systems Vital Signs Vitals Vital Signs Date Time Temp Pulse Resp B/P Pulse Ox O2 Delivery O2 Flow Rate FiO2 10/07/16 08:15 70 24 82/54 98 Mechanical Ventilator 10/07/16 08:00 30 10/07/16 08:00 97.9 Intake and Output 10/06/16 10/06/16 10/07/16 15:00 23:00 07:00 Intake Total 1632.10 ml 1888.17 ml 1642.03 ml Output Total 80 ml 55 ml 55 ml Balance 1552.10 ml 1833.17 ml 1587.03 ml Exam Constitutional: frail, non-verbal Eyes: icteric Neurological: unresponsive Results Result Diagram: 10/07/16 0551 10/07/16 0551 Results 24 hrs Laboratory Tests Test 10/06/16 10:03 10/06/16 12:29 10/06/16 17:12 10/06/16 20:09 Bedside Glucose 191 213 192 193 Test 10/06/16 21:15 10/07/16 01:23 10/07/16 05:06 10/07/16 05:51 Vancomycin Level Trough 12.7 Bedside Glucose 176 143 White Blood Count 12.7 H Red Blood Count 3.50 L Hemoglobin 10.0 L Hematocrit 31.7 L Mean Corpuscular Volume 90.6 Mean Corpuscular Hemoglobin 28.6 L Mean Corpuscular Hemoglobin Concent 31.5 L Red Cell Distribution Width 19.4 H Platelet Count 283 # Mean Platelet Volume 9.5 Neutrophils % 85.9 H Lymphocytes % 4.3 L Monocytes % 4.2 Eosinophils % 4.7 Basophils % 0.2 Nucleated Red Blood Cells % 0.2 H Neutrophils # (Manual) 11 H Lymphocytes # 0.6 L Monocytes # 0.5 Eosinophils # 0.6 H Basophils # 0.0 Nucleated Red Blood Cells # 0.0 Prothrombin Time 27.3 H Prothrombin Time Ratio 2.1 INR International Normalized Ratio 2.50 Activated Partial Thromboplast Time 54.5 H Sodium Level 121 L Potassium Level 3.3 L Chloride Level 89 L Carbon Dioxide Level 18 L Anion Gap 17 H Blood Urea Nitrogen 78 H Creatinine 0.93 Glucose Level 115 # Calcium Level 8.0 L Total Bilirubin 0.2 Direct Bilirubin 0.20 Indirect Bilirubin 0.0 Aspartate Amino Transf (AST/SGOT) 23 Alanine Aminotransferase (ALT/SGPT) 27 Alkaline Phosphatase 87 Total Protein 5.7 L Albumin 2.4 L Globulin 3.30 H Albumin/Globulin Ratio 0.72 Medications Medications Current Medications Ondansetron HCl (Zofran Inj) 4 mg Q6H PRN IV NAUSEA AND/OR VOMITING Last administered on 09/24/16 11:53; Admin Dose 4 MG; Start 09/15/16 at 06:30 Acetaminophen (Tylenol Tab) 650 mg Q6H PRN PO PAIN LEVEL 1-3 OR FEVER Last administered on 09/16/16 20:10; Admin Dose 650 MG; Start 09/15/16 at 06:30 Acetaminophen (Tylenol Supp) 650 mg Q6H PRN OR PAIN LEVEL 1-3 OR FEVER; Start 09/15/16 at 06:30 Amiodarone HCl (Cordarone) 200 mg DAILY GTB Last administered on 10/07/16 09: 20; Admin Dose 200 MG; Start 09/15/16 at 09:00 Bisacodyl (Dulcolax Supp) 10 mg Q24H PRN OR CONSTIPATION Last administered on 22:12; Admin Dose 10 MG; Start 09/15/16 at 06:30 Chlorhexidine Gluconate (Peridex) 15 ml BID MM Last administered on 10/07/16 09:20; Admin Dose 15 ML; Start 09/15/16 at 09:00 Docusate Sodium (Colace) 200 mg QHS PRN PO CONSTIPATION; Start 09/15/16 at 06:30 Lisinopril (Zestril) 2.5 mg BID GTB Last administered on 09/15/16 09:24; Admin Dose 2.5 MG; Start 09/15/16 at 09:00; Status Future Hold Diphenhydramine HCl (Benadryl) 25 mg Q6H PRN IV ITCHING Last administered on 13:56; Admin Dose 25 MG; Start 09/15/16 at 21:00 Miscellaneous Information 1 ea NOTE XX ; Start 09/17/16 at 22:45 Glucose (Glutose) 15 gm Q15M PRN PO DECREASED GLUCOSE; Start 09/17/16 at 22:45 Glucose (Glutose) 22.5 gm Q15M PRN PO DECREASED GLUCOSE; Start 09/17/16 at 22:45 Dextrose (D50w Syringe) 25 ml Q15M PRN IV DECREASED GLUCOSE Last administered on 10/04/16 12:26; Admin Dose 25 ML; Start 09/17/16 at 22:45 Dextrose (D50w Syringe) 50 ml Q15M PRN IV DECREASED GLUCOSE; Start 09/17/16 at 22:45 Glucagon (Glucagen) 1 mg Q15M PRN IM DECREASED GLUCOSE; Start 09/17/16 at 22:45 Glucose (Glutose) 15 gm Q15M PRN BUCCAL DECREASED GLUCOSE; Start 09/17/16 at 22: 45 Acetaminophen (Tylenol Tab) 650 mg Q4 PRN GTB PAIN AND OR ELEVATED TEMP Last administered on 09/23/16 00:59; Admin Dose 650 MG; Start 09/18/16 at 11:30 Albuterol (Proventil 0.083% (Neb)) 2.5 mg Q3H PRN NEB WHEEZING AND SOB; Start 09/18/16 at 11:30 Ascorbic Acid (Vitamin C) 500 mg BID PO Last administered on 10/07/16 09:20; Admin Dose 500 MG; Start 09/18/16 at 21:00 Folic Acid (Folic Acid) 1 mg DAILY GTB Last administered on 10/07/16 09:20; Admin Dose 1 MG; Start 09/19/16 at 09:00 Hydroxyzine HCl (Atarax) 25 mg Q8H PRN PO ITCHING Last administered on 21:23; Admin Dose 25 MG; Start 09/18/16 at 11:30 Lorazepam (Ativan) 1 mg Q8 PRN GTB ANXIETY Last administered on 09/22/16 09:17 ; Admin Dose 1 MG; Start 09/18/16 at 11:30 Magnesium Hydroxide (Milk Of Mag) 30 ml DAILY PRN GTB CONSTIPATION Last administered on 09/23/16 17:19; Admin Dose 30 ML; Start 09/18/16 at 11:30 Sodium Biphosphate/ Sodium Phosphate (Fleet Enema Pediatric) 66.6 ml DAILY PRN OR CONSTIPATION; Start 09/18/16 at 11:30 Lactobacillus Acidophilus/ Rhamnosus (Culturelle) 1 cap BID PO Last administered on 10/07/16 09:20; Admin Dose 1 CAP; Start 09/18/16 at 21:00 Lorazepam (Ativan) 1 mg Q6H PRN IV ANXIETY Last administered on 09/28/16 01:48 ; Admin Dose 1 MG; Start 09/19/16 at 18:30 Midodrine (Proamatine) 5 mg TID GTB Last administered on 10/07/16 09:21; Admin Dose 5 MG; Start 09/21/16 at 06:00 Ferrous Sulfate (Ferrous Sulfate (Ec)) 325 mg TID PO Last administered on 09:20; Admin Dose 325 MG; Start 09/21/16 at 10:00 Multivitamins 30 ml 30 ml DAILY GTB Last administered on 10/07/16 09:20; Admin Dose 30 ML; Start 09/21/16 at 10:30 Vancomycin HCl (Vancocin) 250 ml @ 125 mls/hr Q5D IVPB Last administered on 22:23; Admin Dose 125 MLS/HR; Start 09/21/16 at 22:00 Bacitracin (Bacitracin Oint (Ud)) 1 applic BID TOP Last administered on 09:20; Admin Dose 1 APPLIC; Start 09/23/16 at 21:00 Metoclopramide HCl (Reglan) 10 mg Q6 IV Last administered on 10/07/16 05:06; Admin Dose 10 MG; Start 09/24/16 at 18:00 IV Flush 10 ml 10 ml PRN PRN IV IV PROTOCOL; Start 09/25/16 at 16:00 Meropenem/Sodium Chloride (Merrem 500mg/50 ml(Pmx)) 50 ml @ 200 mls/hr Q12 IVPB Last administered on 10/06/16 20:09; Admin Dose 200 MLS/HR; Start at 21:00 Lansoprazole (Prevacid) 30 mg DAILY@06 GTB Last administered on 10/07/16 05:06 ; Admin Dose 30 MG; Start 09/28/16 at 06:00 Bumetanide 1 mg 1 mg DAILY IV Last administered on 09/30/16 08:32; Admin Dose 1 MG; Start 09/30/16 at 09:00; Status Future Hold Metronidazole (Flagyl 500 Mg (Pmx)) 100 ml @ 100 mls/hr Q8 IVPB Last administered on 10/07/16 05:06; Admin Dose 100 MLS/HR; Start 09/30/16 at 14:30 Insulin Aspart NOVOLOG *MODERATE* ALGORI... Q4 SC Last administered on 06:03; Admin Dose 2 UNIT; Start 09/30/16 at 17:00 Vasopressin/ Dextrose (Vasostrict/D5W) 60 ml @ 1.2 mls/hr Q12H IV Last administered on 10/06/16 22:21; Admin Dose 2.4 MLS/HR; Start 10/01/16 at 11:00 Polyethylene Glycol (Miralax) 17 gm DAILY PEG Last administered on 10/07/16 09 :20; Admin Dose 17 GM; Start 10/03/16 at 11:30 Lactulose (Enulose) 20 gm Q8 PO Last administered on 10/07/16 05:06; Admin Dose 20 GM; Start 10/03/16 at 14:00 Insulin Detemir (Levemir) 30 unit HS SC Last administered on 10/06/16 20:14; Admin Dose 30 UNIT; Start 10/04/16 at 21:00 Rifaximin (Xifaxan) 550 mg BID PO Last administered on 10/07/16 09:20; Admin Dose 550 MG; Start 10/04/16 at 09:00 Lactulose 100 ml 100 ml Q6 OR Last administered on 10/06/16 12:37; Admin Dose 100 ML; Start 10/04/16 at 12:00 Sodium Bicarbonate/ Dextrose (Na Bicarb/D5W) 1,100 ml @ 50 mls/hr Q22H IV Last administered on 10/07/16 06:39; Admin Dose 50 MLS/HR; Start 10/04/16 at 12 :00 Enoxaparin Sodium 40 mg 40 mg DAILY SC Last administered on 10/06/16 10:15; Admin Dose 40 MG; Start 10/06/16 at 09:00 Caspofungin 50 mg/ Sodium Chloride 250 ml @ 250 mls/hr Q24H IVPB Last administered on 10/06/16 15:26; Admin Dose 250 MLS/HR; Start 10/06/16 at 15:00 Dobutamine HCl/ Dextrose 250 ml @ 16.59 mls/ hr TITRATE IV Last administered on 10/07/16 01:28; Admin Dose 16.59 MLS/HR; Start 10/06/16 at 08:30 Fentanyl 100 ml @ 1.5 mls/hr TITRATE IV Last administered on 10/06/16 15:33; Admin Dose 1.5 MLS/HR; Start 10/06/16 at 15:00 Norepinephrine 32 mg/Dextrose 250 ml @ 0.46 mls/hr TITRATE IV Last administered on 10/07/16 01:20; Admin Dose 14.06 MLS/HR; Start 10/06/16 at 17: 30 Phenylephrine HCl/ Dextrose (Jose Eduardo-Syneph/D5W) 500 ml @ 0 mls/hr TITRATE IV Last administered on 10/07/16 07:56; Admin Dose 56.25 MLS/HR; Start 10/06/16 at 23: 00 GOVIND PAGE Oct 07, 2016 09:41
--- NOTE | 2016-10-07 09:58 | CONS ---
Date/Time of Note Date/Time of Note DATE: 10/07/16 TIME: 09:56 Assessment/Plan Assessment/Plan Chief Complaint/Hosp Course Shock - likely multifactorial, at least partially cardiogenic. Now on 3 pressors and dobutamine without much help Healthcare-associated pneumonia - on antibiotics Acute on chronic systolic heart failure: grossly decompensated Cardiomyopathy, LVEF 20-25% - unclear etiology, unclear if patient has ever had ischemic workup, possibly due to muscular dystrophy Acute kidney injury on chronic kidney disease: resolved. Remains stable Chronic ventilator-dependent respiratory failure Muscular dystrophy Paroxysmal atrial fibrillation and atrial flutter History of ventricular tachycardia (Torsades de pointes) - status post Bi-V ICD upgrade January 2015 ([place]) Diabetes mellitus Anemia of chronic disease History of right lower extremity deep vein thrombosis Severe peripheral arterial disease - prior CT LE angio with evidence of [employer] SFA and severe disease of popliteal -increase to dobutamine 7.5mcg/kg/min -continue levophed, vasopressin, phenylephrine -bumex 2mg BID -continue amiodarone 200mg daily -overall very poor prognosis. Family deciding on comfort care >40 min critical care time Problems: Consultation Date/Type/Reason Admit Date/Time Sep 15, 2016 at 01:59 Initial Consult Date 09/18/16 Type of Consultation: Cardiology 24 HR Interval Summary Free Text/Dictation Remains critically ill. Family is aware and pt is now DNR. Deciding on comfort care. Exam/Review of Systems Vital Signs Vitals Vital Signs Date Time Temp Pulse Resp B/P Pulse Ox O2 Delivery O2 Flow Rate FiO2 10/07/16 09:35 71 24 97 30 10/07/16 08:15 82/54 Mechanical Ventilator 10/07/16 08:00 97.9 Intake and Output 10/06/16 10/06/16 10/07/16 15:00 23:00 07:00 Intake Total 1632.10 ml 1888.17 ml 1642.03 ml Output Total 80 ml 55 ml 55 ml Balance 1552.10 ml 1833.17 ml 1587.03 ml Exam Constitutional: No alert, No distress Head: atraumatic, normocephalic Eyes: No nl conjunctiva ENMT: No nl lips & teeth Neck: other (trach), No jvd (unable to assess) Respiratory: crackles/rales, diminished breath sounds, No clear to auscultation Cardiovascular: edema (4+), regular rate and rhythm, systolic murmur Gastrointestinal: distended, soft Musculoskeletal: No nl extremities to inspection Neurological: No nl mental status, No nl speech Results Result Diagram: 10/07/16 0551 10/07/16 0551 Results 24 hrs Laboratory Tests Test 10/06/16 10:03 10/06/16 12:29 10/06/16 17:12 10/06/16 20:09 Bedside Glucose 191 213 192 193 Test 10/06/16 21:15 10/07/16 01:23 10/07/16 05:06 10/07/16 05:51 Vancomycin Level Trough 12.7 Bedside Glucose 176 143 White Blood Count 12.7 H Red Blood Count 3.50 L Hemoglobin 10.0 L Hematocrit 31.7 L Mean Corpuscular Volume 90.6 Mean Corpuscular Hemoglobin 28.6 L Mean Corpuscular Hemoglobin Concent 31.5 L Red Cell Distribution Width 19.4 H Platelet Count 283 # Mean Platelet Volume 9.5 Neutrophils % 85.9 H Lymphocytes % 4.3 L Monocytes % 4.2 Eosinophils % 4.7 Basophils % 0.2 Nucleated Red Blood Cells % 0.2 H Neutrophils # (Manual) 11 H Lymphocytes # 0.6 L Monocytes # 0.5 Eosinophils # 0.6 H Basophils # 0.0 Nucleated Red Blood Cells # 0.0 Prothrombin Time 27.3 H Prothrombin Time Ratio 2.1 INR International Normalized Ratio 2.50 Activated Partial Thromboplast Time 54.5 H Sodium Level 121 L Potassium Level 3.3 L Chloride Level 89 L Carbon Dioxide Level 18 L Anion Gap 17 H Blood Urea Nitrogen 78 H Creatinine 0.93 Glucose Level 115 # Calcium Level 8.0 L Total Bilirubin 0.2 Direct Bilirubin 0.20 Indirect Bilirubin 0.0 Aspartate Amino Transf (AST/SGOT) 23 Alanine Aminotransferase (ALT/SGPT) 27 Alkaline Phosphatase 87 Total Protein 5.7 L Albumin 2.4 L Globulin 3.30 H Albumin/Globulin Ratio 0.72 Medications Medications Current Medications Ondansetron HCl (Zofran Inj) 4 mg Q6H PRN IV NAUSEA AND/OR VOMITING Last administered on 09/24/16t 11:53; Admin Dose 4 MG; Start 09/15/16 at 06:30 Acetaminophen (Tylenol Tab) 650 mg Q6H PRN PO PAIN LEVEL 1-3 OR FEVER Last administered on 09/16/16 20:10; Admin Dose 650 MG; Start 09/15/16 at 06:30 Acetaminophen (Tylenol Supp) 650 mg Q6H PRN CA PAIN LEVEL 1-3 OR FEVER; Start 09/15/16 at 06:30 Amiodarone HCl (Cordarone) 200 mg DAILY GTB Last administered on 10/07/16 09: 20; Admin Dose 200 MG; Start 09/15/16 at 09:00 Bisacodyl (Dulcolax Supp) 10 mg Q24H PRN CA CONSTIPATION Last administered on 22:12; Admin Dose 10 MG; Start 09/15/16 at 06:30 Chlorhexidine Gluconate (Peridex) 15 ml BID MM Last administered on 10/07/16 09:20; Admin Dose 15 ML; Start 09/15/16 at 09:00 Docusate Sodium (Colace) 200 mg QHS PRN PO CONSTIPATION; Start 09/15/16 at 06:30 Lisinopril (Zestril) 2.5 mg BID GTB Last administered on 09/15/16 09:24; Admin Dose 2.5 MG; Start 09/15/16 at 09:00; Status Future Hold Diphenhydramine HCl (Benadryl) 25 mg Q6H PRN IV ITCHING Last administered on 13:56; Admin Dose 25 MG; Start 09/15/16 at 21:00 Miscellaneous Information 1 ea NOTE XX ; Start 09/17/16 at 22:45 Glucose (Glutose) 15 gm Q15M PRN PO DECREASED GLUCOSE; Start 09/17/16 at 22:45 Glucose (Glutose) 22.5 gm Q15M PRN PO DECREASED GLUCOSE; Start 09/17/16 at 22:45 Dextrose (D50w Syringe) 25 ml Q15M PRN IV DECREASED GLUCOSE Last administered on 10/04/16 12:26; Admin Dose 25 ML; Start 09/17/16 at 22:45 Dextrose (D50w Syringe) 50 ml Q15M PRN IV DECREASED GLUCOSE; Start 09/17/16 at 22:45 Glucagon (Glucagen) 1 mg Q15M PRN IM DECREASED GLUCOSE; Start 09/17/16 at 22:45 Glucose (Glutose) 15 gm Q15M PRN BUCCAL DECREASED GLUCOSE; Start 09/17/16 at 22: 45 Acetaminophen (Tylenol Tab) 650 mg Q4 PRN GTB PAIN AND OR ELEVATED TEMP Last administered on 09/23/16 00:59; Admin Dose 650 MG; Start 09/18/16 at 11:30 Albuterol (Proventil 0.083% (Neb)) 2.5 mg Q3H PRN NEB WHEEZING AND SOB; Start 09/18/16 at 11:30 Ascorbic Acid (Vitamin C) 500 mg BID PO Last administered on 10/07/16 09:20; Admin Dose 500 MG; Start 09/18/16 at 21:00 Folic Acid (Folic Acid) 1 mg DAILY GTB Last administered on 10/07/16 09:20; Admin Dose 1 MG; Start 09/19/16 at 09:00 Hydroxyzine HCl (Atarax) 25 mg Q8H PRN PO ITCHING Last administered on 21:23; Admin Dose 25 MG; Start 09/18/16 at 11:30 Lorazepam (Ativan) 1 mg Q8 PRN GTB ANXIETY Last administered on 09/22/16 09:17 ; Admin Dose 1 MG; Start 09/18/16 at 11:30 Magnesium Hydroxide (Milk Of Mag) 30 ml DAILY PRN GTB CONSTIPATION Last administered on 09/23/16 17:19; Admin Dose 30 ML; Start 09/18/16 at 11:30 Sodium Biphosphate/ Sodium Phosphate (Fleet Enema Pediatric) 66.6 ml DAILY PRN CA CONSTIPATION; Start 09/18/16 at 11:30 Lactobacillus Acidophilus/ Rhamnosus (Culturelle) 1 cap BID PO Last administered on 10/07/16 09:20; Admin Dose 1 CAP; Start 09/18/16 at 21:00 Lorazepam (Ativan) 1 mg Q6H PRN IV ANXIETY Last administered on 09/28/16 01:48 ; Admin Dose 1 MG; Start 09/19/16 at 18:30 Midodrine (Proamatine) 5 mg TID GTB Last administered on 10/07/16 09:21; Admin Dose 5 MG; Start 09/21/16 at 06:00 Ferrous Sulfate (Ferrous Sulfate (Ec)) 325 mg TID PO Last administered on 09:20; Admin Dose 325 MG; Start 09/21/16 at 10:00 Multivitamins 30 ml 30 ml DAILY GTB Last administered on 10/07/16 09:20; Admin Dose 30 ML; Start 09/21/16 at 10:30 Vancomycin HCl (Vancocin) 250 ml @ 125 mls/hr Q5D IVPB Last administered on 22:23; Admin Dose 125 MLS/HR; Start 09/21/16 at 22:00 Bacitracin (Bacitracin Oint (Ud)) 1 applic BID TOP Last administered on 09:20; Admin Dose 1 APPLIC; Start 09/23/16 at 21:00 Metoclopramide HCl (Reglan) 10 mg Q6 IV Last administered on 10/07/16 05:06; Admin Dose 10 MG; Start 09/24/16 at 18:00 IV Flush 10 ml 10 ml PRN PRN IV IV PROTOCOL; Start 09/25/16 at 16:00 Meropenem/Sodium Chloride (Merrem 500mg/50 ml(Pmx)) 50 ml @ 200 mls/hr Q12 IVPB Last administered on 10/06/16 20:09; Admin Dose 200 MLS/HR; Start at 21:00 Lansoprazole (Prevacid) 30 mg DAILY@06 GTB Last administered on 10/07/16 05:06 ; Admin Dose 30 MG; Start 09/28/16 at 06:00 Bumetanide 1 mg 1 mg DAILY IV Last administered on 09/30/16 08:32; Admin Dose 1 MG; Start 09/30/16 at 09:00; Status Future Hold Metronidazole (Flagyl 500 Mg (Pmx)) 100 ml @ 100 mls/hr Q8 IVPB Last administered on 10/07/16 05:06; Admin Dose 100 MLS/HR; Start 09/30/16 at 14:30 Insulin Aspart NOVOLOG *MODERATE* ALGORI... Q4 SC Last administered on 06:03; Admin Dose 2 UNIT; Start 09/30/16 at 17:00 Vasopressin/ Dextrose (Vasostrict/D5W) 60 ml @ 1.2 mls/hr Q12H IV Last administered on 10/06/16 22:21; Admin Dose 2.4 MLS/HR; Start 10/01/16 at 11:00 Polyethylene Glycol (Miralax) 17 gm DAILY PEG Last administered on 10/07/16 09 :20; Admin Dose 17 GM; Start 10/03/16 at 11:30 Lactulose (Enulose) 20 gm Q8 PO Last administered on 10/07/16 05:06; Admin Dose 20 GM; Start 10/03/16 at 14:00 Insulin Detemir (Levemir) 30 unit HS SC Last administered on 10/06/16 20:14; Admin Dose 30 UNIT; Start 10/04/16 at 21:00 Rifaximin (Xifaxan) 550 mg BID PO Last administered on 10/07/16 09:20; Admin Dose 550 MG; Start 10/04/16 at 09:00 Lactulose 100 ml 100 ml Q6 CA Last administered on 10/06/16 12:37; Admin Dose 100 ML; Start 10/04/16 at 12:00 Sodium Bicarbonate/ Dextrose (Na Bicarb/D5W) 1,100 ml @ 50 mls/hr Q22H IV Last administered on 10/07/16 06:39; Admin Dose 50 MLS/HR; Start 10/04/16 at 12 :00 Enoxaparin Sodium 40 mg 40 mg DAILY SC Last administered on 10/06/16 10:15; Admin Dose 40 MG; Start 10/06/16 at 09:00 Caspofungin 50 mg/ Sodium Chloride 250 ml @ 250 mls/hr Q24H IVPB Last administered on 10/06/16 15:26; Admin Dose 250 MLS/HR; Start 10/06/16 at 15:00 Dobutamine HCl/ Dextrose 250 ml @ 16.59 mls/ hr TITRATE IV Last administered on 10/07/16 01:28; Admin Dose 16.59 MLS/HR; Start 10/06/16 at 08:30 Fentanyl 100 ml @ 1.5 mls/hr TITRATE IV Last administered on 10/06/16 15:33; Admin Dose 1.5 MLS/HR; Start 10/06/16 at 15:00 Norepinephrine 32 mg/Dextrose 250 ml @ 0.46 mls/hr TITRATE IV Last administered on 10/07/16 01:20; Admin Dose 14.06 MLS/HR; Start 10/06/16 at 17: 30 Phenylephrine HCl/ Dextrose (Jose Eduardo-Syneph/D5W) 500 ml @ 0 mls/hr TITRATE IV Last administered on 10/07/16t 07:56; Admin Dose 56.25 MLS/HR; Start 10/06/16 at 23: 00 GÓMEZ BURNHAM Oct 07, 2016 09:58
[2016-10-07] MEDS: MEROPENEM 500MG/50 ML (PMX) 50 ML IVPB SCH ×2 (10:01→20:45)
[2016-10-07] MEDS: VASOPRESSIN 60 UNIT in DEXTROSE 5% 57 ML IV SCH ×2 (11:00→22:17)
[2016-10-07] MEDS ORDERED: POTASSIUM CHLORIDE 50 ML IVPB ONE (12:30)
[2016-10-07] MEDS: SODIUM BICARBONATE (IV ADD) 150 MEQ in DEXTROSE 5% 1,000 ML IV SCH (12:56)
[2016-10-07] MEDS: ENOXAPARIN 40 MG/0.4 ML SYG SC SCH (12:57)
--- NOTE | 2016-10-07 13:26 | PN ---
DATE: 10/07/2016 SUBJECTIVE DATA: The patient remains critically ill, on presser support on four pressors in shock. The patient is on full ventilatory support. Urinary output is minimal, approximately 5- 10 cc an hour. Please note, I spoke with the patient's family at bedside, informing her that dialysis may be necessary. Per patient's family, they do not wish to have hemodialysis. No other events noted. OBJECTIVE DATA: VITAL SIGNS: Blood pressure is 82/54, respirations 24, pulse 78, temperature 97.9. HEENT: Head is normocephalic. Pupils are reactive to light. Neck shows trach. HEART: Regular rate. LUNGS: Diminished breath sounds at the base. ABDOMEN: Soft, nontender to palpation. Positive PEG. EXTREMITIES: Negative for clubbing, cyanosis. Positive edema upper and lower extremities. DERMATOLOGIC: Clean. No rashes. MUSCULOSKELETAL: No joint effusion. NEUROLOGIC: Limited exam as patient is obtunded. LABORATORY AND DIAGNOSTIC DATA: Shows sodium 121, potassium 3.3, chloride 99, BUN 74, creatinine 0.93. White count 12.7, hemoglobin 10.0, hematocrit 31.7, platelet count is 283. IMAGING STUDIES: Imaging studies reviewed. MEDICATIONS: The patient's medications have been reviewed. ASSESSMENT AND PLAN: 1. Oligoanuric acute kidney injury on top of chronic kidney disease with previous baseline creatinine 0.6 mg/dL. Please note that patient's creatinine 0.9 is grossly overestimating her EGFR. She has a poor muscle mass. Etiology of acute kidney injury is multifactorial secondary to sepsis, acute tubular necrosis. Per patient's family no desire for hemodialysis. At this point, would continue current medical management. Continue treating underlying shock with pressor support. Continue full supportive care. Continue antibiotic therapy. 2. Hyponatremia. Etiology secondary to acute kidney injury causing decreased free water urinary excretion. The patient also was receiving hypotonic fluids in piggybacks. Plan is to change all piggybacks from D5 water to normal saline. All fluids isosmotic or hyperosmotic. If sodium levels should fall less than 120, would consider starting 3 percent sodium chloride. Will monitor sodium levels closely. 3. Hypokalemia. Will replete with potassium chloride. 4. Shock. Etiology is multifactorial, cardiac septic. The patient is on four pressors on diuretic therapy. At this point, continue current regimen. Will follow up blood cultures. Follow up with Infectious Disease. Follow up with Cardiology. Monitor closely. 5. Mineral bone disorder. Continue to monitor calcium and phosphorus levels. 6. Metabolic acidosis. The patient's ABG was reviewed. The patient is currently on bicarbonate drip. We will continue to treat underlying shock. 7. Anemia. Monitor H and H levels. 8. Pressor dependent respiratory failure. Vent settings reviewed. ABGs reviewed. Continue to monitor. 9. Acute decompensated heart failure. The patient is currently on dobutamine, on Bumex drip. Will follow up with Cardiology for recommendations. 10. Arrhythmia. Continue current medical management. 11. Dysphagia. Status post percutaneous endoscopic gastrostomy. 12. Muscular dystrophy. 13. Acute encephalopathy. Etiology toxic metabolic. I spent over 30 minutes of critical care time with this patient. Dictated By: Raymon Giordano DO /[email or web address]/melissa /Document#: [id number]
[2016-10-07] MEDS ORDERED: KCL 20 MEQ in NS 100 ML IV ONE (14:00)
--- NOTE | 2016-10-07 15:50 | PN ---
DATE: 10/07/2016 SUBJECTIVE DATA: No events overnight. Patient remains obtunded on multiple pressors, hypothermic with low blood pressure. Temperature this morning 97.3, pulse 70, respirations 24, blood pressure 80/52, saturation 95 on vent. LABORATORY AND DIAGNOSTIC DATA: WBC 12.7, H and H 10 and 31.7, platelets 283,000, neutrophils 85.9. BUN 78, creatinine 0.93, sodium 121, potassium 3.3. Chest x-ray this morning revealed no substantial change in extensive bilateral interstitial infiltrates and edema. INDWELLINGS: Trach, PEG, Matthew, rectal tube, PICC line. ANTIMICROBIALS: Vancomycin, , meropenem, Flagyl. PHYSICAL EXAMINATION: GENERAL: Chronically ill-appearing, middle-aged woman, who is in no distress. HEENT: Head atraumatic, normocephalic. Sclerae anicteric. Buccal mucosa dry. NECK: Obese. CHEST: Rise symmetrical. Breath sounds with bilateral rhonchi. HEART: S1, S2. ABDOMEN: Distended, positive ascites, bowel sounds absent. EXTREMITIES: Cold, cyanotic with significant edema. SKIN: Positive for anasarca. ASSESSMENT: 1. Severe sepsis with multisystem organ failure. 2. Healthcare-associated pneumonia. 3. Coronary artery disease with severe cardiomyopathy and decompensated congestive heart failure. 4. Urinary tract infection on admission. 5. Ascites, status post multiple paracenteses, no evidence of subacute bacterial peritonitis. 6. Chronic respiratory failure and dysphagia. 7. Muscular dystrophy. 8. [id number] kidney disease. PLAN: Patient continues to deteriorate, covered with broad- spectrum antibiotics, on multiple pressors. She is being followed by multiple consultants. CODE STATUS: DO NOT RESUSCITATE. Dictated By: Anita Ingram NP /reynaldo/peng /Document#: [id number]
[2016-10-07] MEDS: [UNRECOGNIZED DRUG - OTHER] XX SCH (16:07)
[2016-10-07] MEDS: CASPOFUNGIN 50 MG in SOD CHLORIDE 0.9% 250 ML IVPB SCH (16:31)
--- NOTE | 2016-10-07 17:13 | PN ---
Date/Time of Note Date/Time of Note DATE: 10/07/16 TIME: 17:11 Assessment/Plan VTE Prophylaxis VTE Prophylaxis Intervention: LMWH Lines/Catheters IV Catheter Type (from Nrsg): PICC Line Central line still needed: Yes (IV abx, on pressors, difficult IV access ) Urinary Cath still in place: Yes Reason Cath still needed: urinary retention, other (indicate) (strict I/O ) Assessment/Plan Assessment/Plan Septic shock due to healthcare associated pneumonia + UTI Healthcare associated pneumonia Vent dependent respiratory failure, chronic Cardiomyopathy with ejection fraction of 30-35% with biventricular AICD A. fib and a flutter, currently not on anticoagulation, paced Chronic anoxic encephalopathy with currently acute hepatic encephalopathy with high ammonia level Dysphasia s/p PEG tube Diabetes Chronic kidney disease Hypertension Lower extremity quadriplegia Anemia of chronic disease Pulmonary hypertension Plan: Continue sodium bicarbonate drip at 50 cc/hr Pulmonary following for ventilato care, very poor prognosis, Nurse instructed to call Karan and have him talk to Palliative care service lactulose enema, Rifaximin for hepatic encephalopathy on IV bumex 1 mg daily, monitor BP, lisinopril hold if SBP<110 mm hg free water flush has been changed, on IV abx meropenem and IV flagyl lovenox for DVT prophylaxis , Prevacid for GI prophylaxis appreciate pulmonayr, Nephrology and cardiology help Subjective 24 Hr Interval Summary Free Text/Dictation urine outptu dropping down, BP is also dropping down, Family at bedside Exam/Review of Systems Vital Signs Vitals Vital Signs Date Time Temp Pulse Resp B/P Pulse Ox O2 Delivery O2 Flow Rate FiO2 10/07/16 16:30 70 24 75/44 95 Mechanical Ventilator 10/07/16 16:00 98.5 10/07/16 15:03 30 Intake and Output 10/06/16 10/06/16 10/07/16 15:00 23:00 07:00 Intake Total 1632.10 ml 1888.17 ml 1642.03 ml Output Total 80 ml 55 ml 55 ml Balance 1552.10 ml 1833.17 ml 1587.03 ml Exam Constitutional: non-verbal ENMT: intubated Neck: supple Respiratory: crackles/rales, diminished breath sounds, other (Bilateral Coarse BS+) Cardiovascular: nl pulses, regular rate and rhythm Gastrointestinal: distended, other (obese ), soft Extremities: normal pulses Neurological: other (sedated on ventilator ) Results Result Diagram: 10/07/16 0551 10/07/16 0551 Results 24 hrs Laboratory Tests Test 10/06/16 17:12 10/06/16 20:09 10/06/16 21:15 10/07/16 01:23 Bedside Glucose 192 193 176 Vancomycin Level Trough 12.7 Test 10/07/16 05:06 10/07/16 05:51 10/07/16 10:05 10/07/16 12:55 Bedside Glucose 143 128 127 White Blood Count 12.7 H Red Blood Count 3.50 L Hemoglobin 10.0 L Hematocrit 31.7 L Mean Corpuscular Volume 90.6 Mean Corpuscular Hemoglobin 28.6 L Mean Corpuscular Hemoglobin Concent 31.5 L Red Cell Distribution Width 19.4 H Platelet Count 283 # Mean Platelet Volume 9.5 Neutrophils % 85.9 H Lymphocytes % 4.3 L Monocytes % 4.2 Eosinophils % 4.7 Basophils % 0.2 Nucleated Red Blood Cells % 0.2 H Neutrophils # (Manual) 11 H Lymphocytes # 0.6 L Monocytes # 0.5 Eosinophils # 0.6 H Basophils # 0.0 Nucleated Red Blood Cells # 0.0 Prothrombin Time 27.3 H Prothrombin Time Ratio 2.1 INR International Normalized Ratio 2.50 Activated Partial Thromboplast Time 54.5 H Sodium Level 121 L Potassium Level 3.3 L Chloride Level 89 L Carbon Dioxide Level 18 L Anion Gap 17 H Blood Urea Nitrogen 78 H Creatinine 0.93 Glucose Level 115 # Calcium Level 8.0 L Total Bilirubin 0.2 Direct Bilirubin 0.20 Indirect Bilirubin 0.0 Aspartate Amino Transf (AST/SGOT) 23 Alanine Aminotransferase (ALT/SGPT) 27 Alkaline Phosphatase 87 Total Protein 5.7 L Albumin 2.4 L Globulin 3.30 H Albumin/Globulin Ratio 0.72 Medications Medications Current Medications Ondansetron HCl (Zofran Inj) 4 mg Q6H PRN IV NAUSEA AND/OR VOMITING Last administered on 09/24/16 11:53; Admin Dose 4 MG; Start 09/15/16 at 06:30 Acetaminophen (Tylenol Tab) 650 mg Q6H PRN PO PAIN LEVEL 1-3 OR FEVER Last administered on 09/16/16 20:10; Admin Dose 650 MG; Start 09/15/16 at 06:30 Acetaminophen (Tylenol Supp) 650 mg Q6H PRN [place] PAIN LEVEL 1-3 OR FEVER; Start 09/15/16 at 06:30 Amiodarone HCl (Cordarone) 200 mg DAILY GTB Last administered on 10/07/16 09: 20; Admin Dose 200 MG; Start 09/15/16 at 09:00 Bisacodyl (Dulcolax Supp) 10 mg Q24H PRN [place] CONSTIPATION Last administered on 22:12; Admin Dose 10 MG; Start 09/15/16 at 06:30 Chlorhexidine Gluconate (Peridex) 15 ml BID MM Last administered on 10/07/16 09:20; Admin Dose 15 ML; Start 09/15/16 at 09:00 Docusate Sodium (Colace) 200 mg QHS PRN PO CONSTIPATION; Start 09/15/16 at 06:30 Lisinopril (Zestril) 2.5 mg BID GTB Last administered on 09/15/16 09:24; Admin Dose 2.5 MG; Start 09/15/16 at 09:00; Status Future Hold Diphenhydramine HCl (Benadryl) 25 mg Q6H PRN IV ITCHING Last administered on 13:56; Admin Dose 25 MG; Start 09/15/16 at 21:00 Miscellaneous Information 1 ea NOTE XX ; Start 09/17/16 at 22:45 Glucose (Glutose) 15 gm Q15M PRN PO DECREASED GLUCOSE; Start 09/17/16 at 22:45 Glucose (Glutose) 22.5 gm Q15M PRN PO DECREASED GLUCOSE; Start 09/17/16 at 22:45 Dextrose (D50w Syringe) 25 ml Q15M PRN IV DECREASED GLUCOSE Last administered on 10/04/16 12:26; Admin Dose 25 ML; Start 09/17/16 at 22:45 Dextrose (D50w Syringe) 50 ml Q15M PRN IV DECREASED GLUCOSE; Start 09/17/16 at 22:45 Glucagon (Glucagen) 1 mg Q15M PRN IM DECREASED GLUCOSE; Start 09/17/16 at 22:45 Glucose (Glutose) 15 gm Q15M PRN BUCCAL DECREASED GLUCOSE; Start 09/17/16 at 22: 45 Acetaminophen (Tylenol Tab) 650 mg Q4 PRN GTB PAIN AND OR ELEVATED TEMP Last administered on 09/23/16 00:59; Admin Dose 650 MG; Start 09/18/16 at 11:30 Albuterol (Proventil 0.083% (Neb)) 2.5 mg Q3H PRN NEB WHEEZING AND SOB; Start 09/18/16 at 11:30 Ascorbic Acid (Vitamin C) 500 mg BID PO Last administered on 10/07/16 09:20; Admin Dose 500 MG; Start 09/18/16 at 21:00 Folic Acid (Folic Acid) 1 mg DAILY GTB Last administered on 10/07/16 09:20; Admin Dose 1 MG; Start 09/19/16 at 09:00 Hydroxyzine HCl (Atarax) 25 mg Q8H PRN PO ITCHING Last administered on 21:23; Admin Dose 25 MG; Start 09/18/16 at 11:30 Lorazepam (Ativan) 1 mg Q8 PRN GTB ANXIETY Last administered on 09/22/16 09:17 ; Admin Dose 1 MG; Start 09/18/16 at 11:30 Magnesium Hydroxide (Milk Of Mag) 30 ml DAILY PRN GTB CONSTIPATION Last administered on 09/23/16 17:19; Admin Dose 30 ML; Start 09/18/16 at 11:30 Sodium Biphosphate/ Sodium Phosphate (Fleet Enema Pediatric) 66.6 ml DAILY PRN [place] CONSTIPATION; Start 09/18/16 at 11:30 Lactobacillus Acidophilus/ Rhamnosus (Culturelle) 1 cap BID PO Last administered on 10/07/16 09:20; Admin Dose 1 CAP; Start 09/18/16 at 21:00 Lorazepam (Ativan) 1 mg Q6H PRN IV ANXIETY Last administered on 09/28/16 01:48 ; Admin Dose 1 MG; Start 09/19/16 at 18:30 Midodrine (Proamatine) 5 mg TID GTB Last administered on 10/07/16 12:49; Admin Dose 5 MG; Start 09/21/16 at 06:00 Ferrous Sulfate (Ferrous Sulfate (Ec)) 325 mg TID PO Last administered on 12:49; Admin Dose 325 MG; Start 09/21/16 at 10:00 Multivitamins 30 ml 30 ml DAILY GTB Last administered on 10/07/16 09:20; Admin Dose 30 ML; Start 09/21/16 at 10:30 Vancomycin HCl (Vancocin) 250 ml @ 125 mls/hr Q5D IVPB Last administered on 22:23; Admin Dose 125 MLS/HR; Start 09/21/16 at 22:00 Bacitracin (Bacitracin Oint (Ud)) 1 applic BID TOP Last administered on 09:20; Admin Dose 1 APPLIC; Start 09/23/16 at 21:00 Metoclopramide HCl (Reglan) 10 mg Q6 IV Last administered on 10/07/16 12:47; Admin Dose 10 MG; Start 09/24/16 at 18:00 IV Flush 10 ml 10 ml PRN PRN IV IV PROTOCOL; Start 09/25/16 at 16:00 Meropenem/Sodium Chloride (Merrem 500mg/50 ml(Pmx)) 50 ml @ 200 mls/hr Q12 IVPB Last administered on 10/07/16 10:01; Admin Dose 200 MLS/HR; Start at 21:00 Lansoprazole (Prevacid) 30 mg DAILY@06 GTB Last administered on 10/07/16 05:06 ; Admin Dose 30 MG; Start 09/28/16 at 06:00 Bumetanide 1 mg 1 mg DAILY IV Last administered on 09/30/16 08:32; Admin Dose 1 MG; Start 09/30/16 at 09:00; Status Future Hold Metronidazole (Flagyl 500 Mg (Pmx)) 100 ml @ 100 mls/hr Q8 IVPB Last administered on 10/07/16 12:46; Admin Dose 100 MLS/HR; Start 09/30/16 at 14:30 Insulin Aspart NOVOLOG *MODERATE* ALGORI... Q4 SC Last administered on 06:03; Admin Dose 2 UNIT; Start 09/30/16 at 17:00 Vasopressin/ Dextrose (Vasostrict/D5W) 60 ml @ 1.2 mls/hr Q12H IV Last administered on 10/06/16 22:21; Admin Dose 2.4 MLS/HR; Start 10/01/16 at 11:00 Polyethylene Glycol (Miralax) 17 gm DAILY PEG Last administered on 10/07/16 09 :20; Admin Dose 17 GM; Start 10/03/16 at 11:30 Lactulose (Enulose) 20 gm Q8 PO Last administered on 10/07/16 12:49; Admin Dose 20 GM; Start 10/03/16 at 14:00 Insulin Detemir (Levemir) 30 unit HS SC Last administered on 10/06/16 20:14; Admin Dose 30 UNIT; Start 10/04/16 at 21:00 Rifaximin (Xifaxan) 550 mg BID PO Last administered on 10/07/16 09:20; Admin Dose 550 MG; Start 10/04/16 at 09:00 Lactulose (Lactulose Enema) 100 ml Q6 MN Last administered on 10/06/16 12:37; Admin Dose 100 ML; Start 10/04/16 at 12:00 Enoxaparin Sodium 40 mg 40 mg DAILY SC Last administered on 10/07/16 12:57; Admin Dose 40 MG; Start 10/06/16 at 09:00 Caspofungin 50 mg/ Sodium Chloride 250 ml @ 250 mls/hr Q24H IVPB Last administered on 10/07/16 16:31; Admin Dose 250 MLS/HR; Start 10/06/16 at 15:00 Fentanyl 100 ml @ 1.5 mls/hr TITRATE IV Last administered on 10/06/16 15:33; Admin Dose 1.5 MLS/HR; Start 10/06/16 at 15:00 Norepinephrine 32 mg/Dextrose 250 ml @ 0.46 mls/hr TITRATE IV Last administered on 10/07/16 01:20; Admin Dose 14.06 MLS/HR; Start 10/06/16 at 17: 30 Phenylephrine HCl 160 mg/Dextrose 500 ml @ 0 mls/hr TITRATE IV Last administered on 10/07/16 16:58; Admin Dose 56.25 MLS/HR; Start 10/06/16 at 23: 00 Sodium Bicarbonate/ Dextrose (Na Bicarb/D5W) 1,150 ml @ 50 mls/hr Q23H IV Last administered on 10/07/16 12:56; Admin Dose 50 MLS/HR; Start 10/07/16 at 13 :00 Miscellaneous Information (* Miscellaneous Pharmacy Order) DAILY XX ; Start at 16:07 PAT RUSSELL MD Oct 07, 2016 17:13
[2016-10-07] MEDS: INSULIN DETEMIR [LEVEMIR] 3ML CART SC SCH (20:49)
[2016-10-08] VITALS (100 sets, daily range): BP systolic 70–95; BP diastolic 29–73; PULSE 70–157; RESP 18–24
[2016-10-08] MEDS: METOCLOPRAMIDE 10 MG INJ IV SCH ×4 (00:28→17:38)
[2016-10-08] MEDS: LACTULOSE ENEMA 1,000 ML BTL PR SCH ×4 (00:29→17:38)
[2016-10-08] MEDS: ALBUTEROL 18 GM INHALER INH SCH ×6 (00:35→21:30)
[2016-10-08] MEDS: DOBUTamine/D5W 2 MG/ML DRIP 250 ML IV SCH ×3 (00:39→22:41)
[2016-10-08] MEDS: INSULIN ASPART [NOVOLOG] 3 ML PEN SC SCH ×6 (01:00→21:00)
[2016-10-08] MEDS: PHENYLephrine 160 MG in DEXTROSE 5% 484 ML IV SCH (02:49)
[2016-10-08] MEDS: LACTULOSE 30ML CUP PO SCH ×3 (05:28→22:19)
[2016-10-08] MEDS: LANSOPRAZOLE 30 MG CAP GTB SCH (05:29)
[2016-10-08] MEDS: metroNIDAZOLE 500 MG/NS (PMX) 100 ML IVPB SCH ×3 (05:29→22:19)
[2016-10-08 05:39] LABS: BASOPHILS % 0.1 % (0.0-2.0); EOSINOPHILS # 0.4 10^3/ul (0.0-0.5); EOSINOPHILS % 2.5 % (0.0-7.0); HEMATOCRIT 29.8 % (37.0-47.0); HEMOGLOBIN 9.4 g/dl (12.0-16.0); LYMPHOCYTES # 0.7 10^3/ul (0.8-2.9); LYMPHOCYTES % 5.1 % (15.0-51.0); MEAN CORPUSCULAR HEMOGLOBIN 28.3 pg (29.0-33.0); MEAN CORPUSCULAR HGB CONC 31.5 g/dl (32.0-37.0); MEAN CORPUSCULAR VOLUME 89.8 fl (82.0-101.0); MEAN PLATELET VOLUME 9.7 fl (7.4-10.4); MONOCYTE # 0.6 10^3/ul (0.3-0.9); MONOCYTES % 3.8 % (0.0-11.0); NUCLEATED RED BLOOD CELLS% 0.1 /100WBC (0.0-0.0); PLATELET COUNT 278 10^3/UL (140-415); RED BLOOD COUNT 3.32 10^6/ul (4.20-5.40); WHITE BLOOD COUNT 14.6 10^3/ul (4.8-10.8)
[2016-10-08 05:49] LABS: CREATININE 0.7 mg/dl (0.44-1.00); POTASSIUM 3.4 mmol/L (3.5-5.1)
[2016-10-08] MEDS ORDERED: BUMETANIDE 2 MG in SOD CHLORIDE 0.9% 25 ML IV SCH ×2 (06:00→10:00)
[2016-10-08] MEDS ORDERED: DOPamine-D5W 1.6 MG/ML 250 ML ONE (06:20)
[2016-10-08] MEDS: DOPamine-D5W 1.6 MG/ML 250 ML IV SCH ×4 (06:35→20:51)
[2016-10-08] MEDS ORDERED: POTASSIUM CHLORIDE 20 MEQ in SOD CHLORIDE 0.9% 100 ML IVPB ONE (07:30)
--- NOTE | 2016-10-08 07:56 | PN ---
DATE: 10/08/2016 SUBJECTIVE DATA: Patient is critically ill. Now on 5 pressor. The patient has had minimal urinary output, approximately 60 cc per shift. Patient is obtunded. The patient has an extremely poor prognosis, unlikely to survive. No other events noted. OBJECTIVE DATA: VITAL SIGNS: Blood pressure is 82/51, respirations 24, pulse 70, temperature 98.6. I's and O's: Patient 4.5 L in, 165 cc out. HEENT: Head is normocephalic. Pupils are reactive. NECK: Supple. HEART: Regular rate. LUNGS: Show diminished breath sounds base. ABDOMEN: Soft, nontender to palpation. No rebound or guarding. EXTREMITIES: Negative for clubbing, cyanosis. Diffuse anasarca. DERMATOLOGIC: No rashes. MUSCULOSKELETAL: No joint effusion. NEUROLOGIC: The patient is obtunded. LABORATORY AND DIAGNOSTIC DATA: Shows sodium 110, potassium 3.4, chloride 85, bicarb 15, BUN 73, creatinine 0.70. White count 14.6, hemoglobin 9.4, crit of 29.8, and platelet count is 278. The patient's cultures have been reviewed. Medications have been reviewed. ASSESSMENT AND PLAN: 1. Aneuric acute kidney injury on top of chronic kidney disease with previous baseline creatinine 0.6 mg/dL. Please note, the patient's creatinine is grossly overestimating her estimated glomerular filtration rate, patient has significant muscle atrophy. The patient's current acute kidney injury is due to septic acute kidney injury, acute tubular necrosis. The patient is not a hemodialysis candidate as she is hemodynamically unstable. Additionally, I did speak with the patient's family at bedside yesterday about dialysis and they do not wish to start the patient on hemodialysis. At this point, continue current treatment plan. Continue supportive care. Continue treating underlying shock. Continue antibiotic regimen. 2. Hyponatremia. Etiology secondary to acute kidney injury in conjunction with hypertonic fluid. The patient's sodium levels have dropped significantly to 110 mEq/L. We will start the patient on 3 percent sodium chloride at 40 cc an hour for 5 hours. We will monitor serum sodium levels. 3. Hypokalemia. We will replete potassium chloride. 4. Shock. Etiology is multifactorial, cardiac. The patient is on multiple pressors, now 5. The patient is on broad-spectrum antibiotics. We will continue current treatment plan. Follow up with Cardiology. 5. Mineral bone disorder. Continue to monitor calcium and phosphorus levels. 6. Metabolic acidosis. The patient's ABGs reviewed. The patient remains on bicarbonate drip. Continue to monitor. 7. Anemia. Monitor H and H levels. 8. Ventilatory-dependent respiratory failure. Vent settings and ABGs reviewed. 9. Acute decompensated heart failure. The patient is on dobutamine, Bumex drip with minimal response. Continue to monitor. Follow up with Cardiology. 10. Arrhythmia. Continue current medical management. 11. Dysphagia, status post percutaneous endoscopic gastrostomy. 12. Muscular dystrophy. 13. Acute encephalopathy. Etiology is toxic metabolic. Please note, patient has an extremely poor prognosis and unlikely to survive. Please note, I spent over 30 minutes of critical care time with this patient. Dictated By: Raymon Giordano DO /[email or web address]/willy /Document#: [id number]
[2016-10-08] MEDS ORDERED: CHLOROTHIAZIDE 500 MG INJ IV ONE (08:00)
--- NOTE | 2016-10-08 08:00 | CONS ---
Date/Time of Note Date/Time of Note DATE: 10/08/16 TIME: 07:57 Assessment/Plan Assessment/Plan Chief Complaint/Hosp Course Shock - likely multifactorial, at least partially cardiogenic. Now on 4 pressors and dobutamine without much help Healthcare-associated pneumonia - on antibiotics Acute on chronic systolic heart failure: grossly decompensated Cardiomyopathy, LVEF 20-25% - unclear etiology, unclear if patient has ever had ischemic workup, possibly due to muscular dystrophy Acute kidney injury on chronic kidney disease: resolved. Remains stable despite hemodynamics Chronic ventilator-dependent respiratory failure Muscular dystrophy Paroxysmal atrial fibrillation and atrial flutter History of ventricular tachycardia (Torsades de pointes) - status post Bi-V ICD upgrade January 2015 ([employer]) Diabetes mellitus Anemia of chronic disease History of right lower extremity deep vein thrombosis Severe peripheral arterial disease - prior CT LE angio with evidence of [employer] SFA and severe disease of popliteal -dobutamine 7.5mcg/kg/min -continue levophed, vasopressin, phenylephrine, dopamine -increase to bumex 2mg q4h and add diuril -continue amiodarone 200mg daily -overall very poor prognosis. Family deciding on comfort care >40 min critical care time Problems: Consultation Date/Type/Reason Admit Date/Time Sep 15, 2016 at 01:59 Initial Consult Date 09/18/16 Type of Consultation: Cardiology 24 HR Interval Summary Free Text/Dictation Still remains critical. Now on 4 pressors plus dobutamine. Making minimal urine. Na 110 now Exam/Review of Systems Vital Signs Vitals Vital Signs Date Time Temp Pulse Resp B/P Pulse Ox O2 Delivery O2 Flow Rate FiO2 10/08/16 07:26 87 24 95 30 10/08/16 06:30 82/51 10/08/16 06:00 Mechanical Ventilator 10/08/16 04:00 98.8 Intake and Output 10/07/16 10/07/16 10/08/16 15:00 23:00 07:00 Intake Total 1559.56 ml 1757.72 ml 1141.23 ml Output Total 65 ml 35 ml 55 ml Balance 1494.56 ml 1722.72 ml 1086.23 ml Exam Constitutional: No alert Head: normocephalic Neck: No jvd (difficult to examine) Respiratory: crackles/rales, diminished breath sounds, No clear to auscultation Cardiovascular: edema (4+ anasarca), regular rate and rhythm, systolic murmur Gastrointestinal: distended, soft Musculoskeletal: No nl extremities to inspection Extremities: edema, No normal pulses Neurological: No nl mental status, No nl speech Skin: ecchymosis, No rash or lesions Results Result Diagram: 10/08/16 0430 10/08/16 0430 Results 24 hrs Laboratory Tests Test 10/07/16 10:05 10/07/16 12:55 10/07/16 17:38 10/07/16 20:47 Bedside Glucose 128 127 133 136 Test 10/08/16 01:04 10/08/16 04:30 10/08/16 05:28 Bedside Glucose 132 92 White Blood Count 14.6 H Red Blood Count 3.32 L Hemoglobin 9.4 L Hematocrit 29.8 L Mean Corpuscular Volume 89.8 Mean Corpuscular Hemoglobin 28.3 L Mean Corpuscular Hemoglobin Concent 31.5 L Red Cell Distribution Width 19.0 H Platelet Count 278 Mean Platelet Volume 9.7 Neutrophils % 88.0 H Lymphocytes % 5.1 L Monocytes % 3.8 Eosinophils % 2.5 Basophils % 0.1 Nucleated Red Blood Cells % 0.1 H Neutrophils # (Manual) 13 H Lymphocytes # 0.7 L Monocytes # 0.6 Eosinophils # 0.4 Basophils # 0.0 Nucleated Red Blood Cells # 0.0 Sodium Level 110 *L Potassium Level 3.4 L Chloride Level 83 L Carbon Dioxide Level 15 L Anion Gap 15 Blood Urea Nitrogen 73 H Creatinine 0.70 Glucose Level 263 #H Calcium Level 7.0 L Phosphorus Level 5.0 H Magnesium Level 2.0 Medications Medications Current Medications Ondansetron HCl (Zofran Inj) 4 mg Q6H PRN IV NAUSEA AND/OR VOMITING Last administered on 09/24/16 11:53; Admin Dose 4 MG; Start 09/15/16 at 06:30 Acetaminophen (Tylenol Tab) 650 mg Q6H PRN PO PAIN LEVEL 1-3 OR FEVER Last administered on 09/16/16 20:10; Admin Dose 650 MG; Start 09/15/16 at 06:30 Acetaminophen (Tylenol Supp) 650 mg Q6H PRN IN PAIN LEVEL 1-3 OR FEVER; Start 09/15/16 at 06:30 Amiodarone HCl (Cordarone) 200 mg DAILY GTB Last administered on 10/07/16 09: 20; Admin Dose 200 MG; Start 09/15/16 at 09:00 Bisacodyl (Dulcolax Supp) 10 mg Q24H PRN IN CONSTIPATION Last administered on 22:12; Admin Dose 10 MG; Start 09/15/16 at 06:30 Chlorhexidine Gluconate (Peridex) 15 ml BID MM Last administered on 10/07/16 20:39; Admin Dose 15 ML; Start 09/15/16 at 09:00 Docusate Sodium (Colace) 200 mg QHS PRN PO CONSTIPATION; Start 09/15/16 at 06:30 Lisinopril (Zestril) 2.5 mg BID GTB Last administered on 09/15/16 09:24; Admin Dose 2.5 MG; Start 09/15/16 at 09:00; Status Future Hold Diphenhydramine HCl (Benadryl) 25 mg Q6H PRN IV ITCHING Last administered on 13:56; Admin Dose 25 MG; Start 09/15/16 at 21:00 Miscellaneous Information 1 ea NOTE XX ; Start 09/17/16 at 22:45 Glucose (Glutose) 15 gm Q15M PRN PO DECREASED GLUCOSE; Start 09/17/16 at 22:45 Glucose (Glutose) 22.5 gm Q15M PRN PO DECREASED GLUCOSE; Start 09/17/16 at 22:45 Dextrose (D50w Syringe) 25 ml Q15M PRN IV DECREASED GLUCOSE Last administered on 10/04/16 12:26; Admin Dose 25 ML; Start 09/17/16 at 22:45 Dextrose (D50w Syringe) 50 ml Q15M PRN IV DECREASED GLUCOSE; Start 09/17/16 at 22:45 Glucagon (Glucagen) 1 mg Q15M PRN IM DECREASED GLUCOSE; Start 09/17/16 at 22:45 Glucose (Glutose) 15 gm Q15M PRN BUCCAL DECREASED GLUCOSE; Start 09/17/16 at 22: 45 Acetaminophen (Tylenol Tab) 650 mg Q4 PRN GTB PAIN AND OR ELEVATED TEMP Last administered on 09/23/16 00:59; Admin Dose 650 MG; Start 09/18/16 at 11:30 Albuterol (Proventil 0.083% (Neb)) 2.5 mg Q3H PRN NEB WHEEZING AND SOB; Start 09/18/16 at 11:30 Ascorbic Acid (Vitamin C) 500 mg BID PO Last administered on 10/07/16 20:39; Admin Dose 500 MG; Start 09/18/16 at 21:00 Folic Acid (Folic Acid) 1 mg DAILY GTB Last administered on 10/07/16 09:20; Admin Dose 1 MG; Start 09/19/16 at 09:00 Hydroxyzine HCl (Atarax) 25 mg Q8H PRN PO ITCHING Last administered on 21:23; Admin Dose 25 MG; Start 09/18/16 at 11:30 Lorazepam (Ativan) 1 mg Q8 PRN GTB ANXIETY Last administered on 09/22/16 09:17 ; Admin Dose 1 MG; Start 09/18/16 at 11:30 Magnesium Hydroxide (Milk Of Mag) 30 ml DAILY PRN GTB CONSTIPATION Last administered on 09/23/16 17:19; Admin Dose 30 ML; Start 09/18/16 at 11:30 Sodium Biphosphate/ Sodium Phosphate (Fleet Enema Pediatric) 66.6 ml DAILY PRN IN CONSTIPATION; Start 09/18/16 at 11:30 Lactobacillus Acidophilus/ Rhamnosus (Culturelle) 1 cap BID PO Last administered on 10/07/16 20:45; Admin Dose 1 CAP; Start 09/18/16 at 21:00 Lorazepam (Ativan) 1 mg Q6H PRN IV ANXIETY Last administered on 09/28/16 01:48 ; Admin Dose 1 MG; Start 09/19/16 at 18:30 Midodrine (Proamatine) 5 mg TID GTB Last administered on 10/07/16 20:39; Admin Dose 5 MG; Start 09/21/16 at 06:00 Ferrous Sulfate (Ferrous Sulfate (Ec)) 325 mg TID PO Last administered on 20:39; Admin Dose 325 MG; Start 09/21/16 at 10:00 Multivitamins 30 ml 30 ml DAILY GTB Last administered on 10/07/16 09:20; Admin Dose 30 ML; Start 09/21/16 at 10:30 Vancomycin HCl (Vancocin) 250 ml @ 125 mls/hr Q5D IVPB Last administered on 22:23; Admin Dose 125 MLS/HR; Start 09/21/16 at 22:00 Bacitracin (Bacitracin Oint (Ud)) 1 applic BID TOP Last administered on 20:39; Admin Dose 1 APPLIC; Start 09/23/16 at 21:00 Metoclopramide HCl (Reglan) 10 mg Q6 IV Last administered on 10/08/16 05:29; Admin Dose 10 MG; Start 09/24/16 at 18:00 IV Flush 10 ml 10 ml PRN PRN IV IV PROTOCOL; Start 09/25/16 at 16:00 Meropenem/Sodium Chloride (Merrem 500mg/50 ml(Pmx)) 50 ml @ 200 mls/hr Q12 IVPB Last administered on 10/07/16 20:45; Admin Dose 200 MLS/HR; Start at 21:00 Lansoprazole (Prevacid) 30 mg DAILY@06 GTB Last administered on 10/08/16 05:29 ; Admin Dose 30 MG; Start 09/28/16 at 06:00 Bumetanide 1 mg 1 mg DAILY IV Last administered on 09/30/16 08:32; Admin Dose 1 MG; Start 09/30/16 at 09:00; Status Future Hold Metronidazole (Flagyl 500 Mg (Pmx)) 100 ml @ 100 mls/hr Q8 IVPB Last administered on 10/08/16 05:29; Admin Dose 100 MLS/HR; Start 09/30/16 at 14:30 Insulin Aspart NOVOLOG *MODERATE* ALGORI... Q4 SC Last administered on 06:03; Admin Dose 2 UNIT; Start 09/30/16 at 17:00 Vasopressin/ Dextrose (Vasostrict/D5W) 60 ml @ 1.2 mls/hr Q12H IV Last administered on 10/07/16 22:17; Admin Dose 2.4 MLS/HR; Start 10/01/16 at 11:00 Polyethylene Glycol (Miralax) 17 gm DAILY PEG Last administered on 10/07/16 09 :20; Admin Dose 17 GM; Start 10/03/16 at 11:30 Lactulose (Enulose) 20 gm Q8 PO Last administered on 10/08/16 05:28; Admin Dose 20 GM; Start 10/03/16 at 14:00 Insulin Detemir (Levemir) 30 unit HS SC Last administered on 10/07/16 20:49; Admin Dose 30 UNIT; Start 10/04/16 at 21:00 Rifaximin (Xifaxan) 550 mg BID PO Last administered on 10/07/16 20:39; Admin Dose 550 MG; Start 10/04/16 at 09:00 Lactulose (Lactulose Enema) 100 ml Q6 IN Last administered on 10/08/16 05:30; Admin Dose 100 ML; Start 10/04/16 at 12:00 Enoxaparin Sodium 40 mg 40 mg DAILY SC Last administered on 10/07/16 12:57; Admin Dose 40 MG; Start 10/06/16 at 09:00 Caspofungin 50 mg/ Sodium Chloride 250 ml @ 250 mls/hr Q24H IVPB Last administered on 10/07/16 16:31; Admin Dose 250 MLS/HR; Start 10/06/16 at 15:00 Fentanyl 100 ml @ 1.5 mls/hr TITRATE IV Last administered on 10/06/16 15:33; Admin Dose 1.5 MLS/HR; Start 10/06/16 at 15:00 Norepinephrine 32 mg/Dextrose 250 ml @ 0.46 mls/hr TITRATE IV Last administered on 10/07/16 17:44; Admin Dose 14.06 MLS/HR; Start 10/06/16 at 17: 30 Sodium Bicarbonate/ Dextrose (Na Bicarb/D5W) 1,150 ml @ 50 mls/hr Q23H IV Last administered on 10/07/16 12:56; Admin Dose 50 MLS/HR; Start 10/07/16 at 13 :00 Miscellaneous Information DAILY XX ; Start 10/07/16 at 16:07 Dopamine HCl/ Dextrose 250 ml @ 8.295 mls/ hr TITRATE IV Last administered on 10/08/16 06:35; Admin Dose 41.475 MLS/HR; Start 10/08/16 at 06:30 Phenylephrine HCl 160 mg/Sodium Chloride 500 ml @ 18.75 mls/ hr TITRATE IV ; Start 10/08/16 at 07:11 Potassium Chloride 20 meq/ Sodium Chloride 110 ml @ 55 mls/hr ONCE ONCE IVPB ; Start 10/08/16 at 07:30; Stop 10/08/16 at 09:29 Sodium Chloride (Sodium Chloride Iv 3%) 200 ml @ 40 mls/hr Q5H IV ; Start 10/08 at 09:00; Stop 10/08/16 at 14:00 GÓMEZ BURNHAM Oct 08, 2016 08:00
[2016-10-08] MEDS ORDERED: NACL 3% 200 ML IV SCH ×2 (09:00)
[2016-10-08] MEDS ORDERED: NACL 3% 500 ML IV SCH (09:00)
[2016-10-08] MEDS: [UNRECOGNIZED DRUG - OTHER] XX SCH (09:19)
[2016-10-08] MEDS: POLYETHYLENE GLYCOL 17 GM PACKET PEG SCH (10:00)
[2016-10-08] MEDS: MULTIVITAMINS 30 ML CUP GTB SCH (10:20)
[2016-10-08] MEDS: CHLORHEXIDINE GLUCONATE 15 ML UD CUP MM SCH ×2 (10:20→21:09)
[2016-10-08] MEDS: BACITRACIN 0.9 GM OINT TOP SCH ×2 (10:20→21:10)
[2016-10-08] MEDS: LACTOBACILLUS RHAMNOSUS CAP PO SCH ×2 (10:20→21:12)
[2016-10-08] MEDS: ASCORBIC ACID 500 MG TAB PO SCH ×2 (10:21→21:10)
[2016-10-08] MEDS: FERROUS SULFATE (EC) 325 MG TAB PO SCH ×3 (10:21→21:10)
[2016-10-08] MEDS: MIDODRINE 5 MG TAB GTB SCH ×3 (10:21→21:10)
[2016-10-08] MEDS: AMIODARONE 200 MG TAB GTB SCH (10:21)
[2016-10-08] MEDS: FOLIC ACID 1 MG TAB GTB SCH (10:21)
[2016-10-08] MEDS: RIFAXIMIN 550 MG TAB PO SCH ×2 (10:21→21:10)
[2016-10-08] MEDS: ENOXAPARIN 40 MG/0.4 ML SYG SC SCH (10:23)
[2016-10-08] MEDS: SODIUM BICARBONATE (IV ADD) 150 MEQ in DEXTROSE 5% 1,000 ML IV SCH (10:34)
[2016-10-08] MEDS: VASOPRESSIN 60 UNIT in DEXTROSE 5% 57 ML IV SCH ×2 (11:00→20:48)
--- NOTE | 2016-10-08 11:03 | CONS ---
Date/Time of Note Date/Time of Note DATE: 10/08/16 TIME: 11:00 Assessment/Plan Assessment/Plan Additional Assessment/Plan Ventilator setting; AC of 24, tidal volume 550, PEEP of 5, 30% FiO2. Patient currently on dobutamine drip at 7.5 mics per kilogram per minute, Levophed 30 mics per minute, Jose Eduardo-Synephrine at 300 mics per minute, vasopressin 0.04 U/min, dopamine 14 mics per kilogram per minute. Fentanyl drip 15 mics per hour. Assessment and recommendations; 1. Patient admitted with severe sepsis from combination CHF and bilateral pneumonia. 2. Profound shock. Continue current treatment. Prognosis is extremely poor. Consultation Date/Type/Reason Admit Date/Time Sep 15, 2016 at 01:59 Initial Consult Date 09/16/16 Type of Consultation: Pulmonary/critical care 24 HR Interval Summary Free Text/Dictation Patient's condition remains extremely critical. On high dose multiple pressor agents for refractory shock. General exam; middle-aged woman, morbidly obese, on ventilator via tracheostomy , sedated. Currently in no distress. Exam/Review of Systems Vital Signs Vitals Vital Signs Date Time Temp Pulse Resp B/P Pulse Ox O2 Delivery O2 Flow Rate FiO2 10/08/16 08:00 94 10/08/16 07:26 24 95 30 10/08/16 06:30 82/51 10/08/16 06:00 Mechanical Ventilator 10/08/16 04:00 98.8 Intake and Output 10/07/16 10/07/16 10/08/16 15:00 23:00 07:00 Intake Total 1559.56 ml 1757.72 ml 1141.23 ml Output Total 65 ml 35 ml 55 ml Balance 1494.56 ml 1722.72 ml 1086.23 ml Exam HEENT exam; supple neck, JVD difficult to see because of short neck. Tracheostomy in place. Patient has fair dentition. Pupils are small bilaterally. No neck masses. Chest exam; diminished breath sounds throughout. S1-S2 audible, no murmurs. Abdomen exam; soft, protuberant. Bowel sounds are very sluggish to absent. G- tube in place. Extremity exam; 2+ anasarca. INVENTORY CONTROL/SHIPPING RECEIVING exam; patient is sedated. Results Result Diagram: 10/08/16 0430 10/08/16 043 Results 24 hrs Laboratory Tests Test 10/07/16 12:55 10/07/16 17:38 10/07/16 20:47 10/08/16 01:04 Bedside Glucose 127 133 136 132 Test 10/08/16 04:30 10/08/16 05:28 White Blood Count 14.6 H Red Blood Count 3.32 L Hemoglobin 9.4 L Hematocrit 29.8 L Mean Corpuscular Volume 89.8 Mean Corpuscular Hemoglobin 28.3 L Mean Corpuscular Hemoglobin Concent 31.5 L Red Cell Distribution Width 19.0 H Platelet Count 278 Mean Platelet Volume 9.7 Neutrophils % 88.0 H Lymphocytes % 5.1 L Monocytes % 3.8 Eosinophils % 2.5 Basophils % 0.1 Nucleated Red Blood Cells % 0.1 H Neutrophils # (Manual) 13 H Lymphocytes # 0.7 L Monocytes # 0.6 Eosinophils # 0.4 Basophils # 0.0 Nucleated Red Blood Cells # 0.0 Sodium Level 110 *L Potassium Level 3.4 L Chloride Level 83 L Carbon Dioxide Level 15 L Anion Gap 15 Blood Urea Nitrogen 73 H Creatinine 0.70 Glucose Level 263 #H Calcium Level 7.0 L Phosphorus Level 5.0 H Magnesium Level 2.0 Bedside Glucose 92 Medications Medications Current Medications Ondansetron HCl (Zofran Inj) 4 mg Q6H PRN IV NAUSEA AND/OR VOMITING Last administered on 09/24/16 11:53; Admin Dose 4 MG; Start 09/15/16 at 06:30 Acetaminophen (Tylenol Tab) 650 mg Q6H PRN PO PAIN LEVEL 1-3 OR FEVER Last administered on 09/16/16 20:10; Admin Dose 650 MG; Start 09/15/16 at 06:30 Acetaminophen (Tylenol Supp) 650 mg Q6H PRN RI PAIN LEVEL 1-3 OR FEVER; Start 09/15/16 at 06:30 Amiodarone HCl (Cordarone) 200 mg DAILY GTB Last administered on 10/08/16 10: 21; Admin Dose 200 MG; Start 09/15/16 at 09:00 Bisacodyl (Dulcolax Supp) 10 mg Q24H PRN RI CONSTIPATION Last administered on 22:12; Admin Dose 10 MG; Start 09/15/16 at 06:30 Chlorhexidine Gluconate (Peridex) 15 ml BID MM Last administered on 10/08/16 10:20; Admin Dose 15 ML; Start 09/15/16 at 09:00 Docusate Sodium (Colace) 200 mg QHS PRN PO CONSTIPATION; Start 09/15/16 at 06:30 Lisinopril (Zestril) 2.5 mg BID GTB Last administered on 09/15/16 09:24; Admin Dose 2.5 MG; Start 09/15/16 at 09:00; Status Future Hold Diphenhydramine HCl (Benadryl) 25 mg Q6H PRN IV ITCHING Last administered on 13:56; Admin Dose 25 MG; Start 09/15/16 at 21:00 Miscellaneous Information 1 ea NOTE XX ; Start 09/17/16 at 22:45 Glucose (Glutose) 15 gm Q15M PRN PO DECREASED GLUCOSE; Start 09/17/16 at 22:45 Glucose (Glutose) 22.5 gm Q15M PRN PO DECREASED GLUCOSE; Start 09/17/16 at 22:45 Dextrose (D50w Syringe) 25 ml Q15M PRN IV DECREASED GLUCOSE Last administered on 10/04/16 12:26; Admin Dose 25 ML; Start 09/17/16 at 22:45 Dextrose (D50w Syringe) 50 ml Q15M PRN IV DECREASED GLUCOSE; Start 09/17/16 at 22:45 Glucagon (Glucagen) 1 mg Q15M PRN IM DECREASED GLUCOSE; Start 09/17/16 at 22:45 Glucose (Glutose) 15 gm Q15M PRN BUCCAL DECREASED GLUCOSE; Start 09/17/16 at 22: 45 Acetaminophen (Tylenol Tab) 650 mg Q4 PRN GTB PAIN AND OR ELEVATED TEMP Last administered on 09/23/16 00:59; Admin Dose 650 MG; Start 09/18/16 at 11:30 Albuterol (Proventil 0.083% (Neb)) 2.5 mg Q3H PRN NEB WHEEZING AND SOB; Start 09/18/16 at 11:30 Ascorbic Acid (Vitamin C) 500 mg BID PO Last administered on 10/08/16 10:21; Admin Dose 500 MG; Start 09/18/16 at 21:00 Folic Acid (Folic Acid) 1 mg DAILY GTB Last administered on 10/08/16 10:21; Admin Dose 1 MG; Start 09/19/16 at 09:00 Hydroxyzine HCl (Atarax) 25 mg Q8H PRN PO ITCHING Last administered on 21:23; Admin Dose 25 MG; Start 09/18/16 at 11:30 Lorazepam (Ativan) 1 mg Q8 PRN GTB ANXIETY Last administered on 09/22/16 09:17 ; Admin Dose 1 MG; Start 09/18/16 at 11:30 Magnesium Hydroxide (Milk Of Mag) 30 ml DAILY PRN GTB CONSTIPATION Last administered on 09/23/16 17:19; Admin Dose 30 ML; Start 09/18/16 at 11:30 Sodium Biphosphate/ Sodium Phosphate (Fleet Enema Pediatric) 66.6 ml DAILY PRN RI CONSTIPATION; Start 09/18/16 at 11:30 Lactobacillus Acidophilus/ Rhamnosus (Culturelle) 1 cap BID PO Last administered on 10/08/16 10:20; Admin Dose 1 CAP; Start 09/18/16 at 21:00 Lorazepam (Ativan) 1 mg Q6H PRN IV ANXIETY Last administered on 09/28/16 01:48 ; Admin Dose 1 MG; Start 09/19/16 at 18:30 Midodrine (Proamatine) 5 mg TID GTB Last administered on 10/08/16 10:21; Admin Dose 5 MG; Start 09/21/16 at 06:00 Ferrous Sulfate (Ferrous Sulfate (Ec)) 325 mg TID PO Last administered on 10:21; Admin Dose 325 MG; Start 09/21/16 at 10:00 Multivitamins 30 ml 30 ml DAILY GTB Last administered on 10/08/16 10:20; Admin Dose 30 ML; Start 09/21/16 at 10:30 Vancomycin HCl (Vancocin) 250 ml @ 125 mls/hr Q5D IVPB Last administered on 22:23; Admin Dose 125 MLS/HR; Start 09/21/16 at 22:00 Bacitracin (Bacitracin Oint (Ud)) 1 applic BID TOP Last administered on 10:20; Admin Dose 1 APPLIC; Start 09/23/16 at 21:00 Metoclopramide HCl (Reglan) 10 mg Q6 IV Last administered on 10/08/16 05:29; Admin Dose 10 MG; Start 09/24/16 at 18:00 IV Flush 10 ml 10 ml PRN PRN IV IV PROTOCOL; Start 09/25/16 at 16:00 Meropenem/Sodium Chloride (Merrem 500mg/50 ml(Pmx)) 50 ml @ 200 mls/hr Q12 IVPB Last administered on 10/07/16 20:45; Admin Dose 200 MLS/HR; Start at 21:00 Lansoprazole (Prevacid) 30 mg DAILY@06 GTB Last administered on 10/08/16 05:29 ; Admin Dose 30 MG; Start 09/28/16 at 06:00 Bumetanide 1 mg 1 mg DAILY IV Last administered on 09/30/16 08:32; Admin Dose 1 MG; Start 09/30/16 at 09:00; Status Future Hold Metronidazole (Flagyl 500 Mg (Pmx)) 100 ml @ 100 mls/hr Q8 IVPB Last administered on 10/08/16 05:29; Admin Dose 100 MLS/HR; Start 09/30/16 at 14:30 Insulin Aspart NOVOLOG *MODERATE* ALGORI... Q4 SC Last administered on 06:03; Admin Dose 2 UNIT; Start 09/30/16 at 17:00 Vasopressin/ Dextrose (Vasostrict/D5W) 60 ml @ 1.2 mls/hr Q12H IV Last administered on 10/07/16 22:17; Admin Dose 2.4 MLS/HR; Start 10/01/16 at 11:00 Polyethylene Glycol (Miralax) 17 gm DAILY PEG Last administered on 10/07/16 09 :20; Admin Dose 17 GM; Start 10/03/16 at 11:30 Lactulose (Enulose) 20 gm Q8 PO Last administered on 10/08/16 05:28; Admin Dose 20 GM; Start 10/03/16 at 14:00 Insulin Detemir (Levemir) 30 unit HS SC Last administered on 10/07/16 20:49; Admin Dose 30 UNIT; Start 10/04/16 at 21:00 Rifaximin (Xifaxan) 550 mg BID PO Last administered on 10/08/16 10:21; Admin Dose 550 MG; Start 10/04/16 at 09:00 Lactulose (Lactulose Enema) 100 ml Q6 RI Last administered on 10/08/16 05:30; Admin Dose 100 ML; Start 10/04/16 at 12:00 Enoxaparin Sodium 40 mg 40 mg DAILY SC Last administered on 10/08/16 10:23; Admin Dose 40 MG; Start 10/06/16 at 09:00 Caspofungin 50 mg/ Sodium Chloride 250 ml @ 250 mls/hr Q24H IVPB Last administered on 10/07/16 16:31; Admin Dose 250 MLS/HR; Start 10/06/16 at 15:00 Fentanyl 100 ml @ 1.5 mls/hr TITRATE IV Last administered on 10/06/16 15:33; Admin Dose 1.5 MLS/HR; Start 10/06/16 at 15:00 Norepinephrine 32 mg/Dextrose 250 ml @ 0.46 mls/hr TITRATE IV Last administered on 10/07/16 17:44; Admin Dose 14.06 MLS/HR; Start 10/06/16 at 17: 30 Sodium Bicarbonate/ Dextrose (Na Bicarb/D5W) 1,150 ml @ 50 mls/hr Q23H IV Last administered on 10/08/16 10:34; Admin Dose 50 MLS/HR; Start 10/07/16 at 13 :00 Miscellaneous Information DAILY XX Last administered on 10/08/16 09:19; Admin Dose 1 EA; Start 10/07/16 at 16:07 Dopamine HCl/ Dextrose 250 ml @ 8.295 mls/ hr TITRATE IV Last administered on 10/08/16 06:35; Admin Dose 41.475 MLS/HR; Start 10/08/16 at 06:30 Phenylephrine HCl 160 mg/Sodium Chloride 500 ml @ 18.75 mls/ hr TITRATE IV ; Start 10/08/16 at 07:11 Sodium Chloride (Sodium Chloride Iv 3%) 200 ml @ 40 mls/hr ONCE IV ; Start at 09:00; Stop 10/08/16 at 14:00 Miscellaneous Information PLEASE SWITCH ALL DRIPS ... ONCE XX ; Start 10/08/16 at 09:00 Bumetanide/Sodium Chloride (Bumex/NS) 25 ml @ 50 mls/hr Q4H IV ; Start 10/08/16 at 12:00 RAMON COWAN Oct 08, 2016 11:03
[2016-10-08] MEDS: NORepinephrine 32 MG in DEXTROSE 5% 218 ML IV SCH (11:38)
[2016-10-08] MEDS: MEROPENEM 500MG/50 ML (PMX) 50 ML IVPB SCH ×2 (12:01→21:09)
[2016-10-08] MEDS: BUMETANIDE 2 MG in SOD CHLORIDE 0.9% 25 ML IV SCH ×3 (12:31→20:56)
[2016-10-08] MEDS: PHENYLephrine 160 MG in SOD CHLORIDE 0.9% 484 ML IV SCH ×2 (12:59→20:49)
--- NOTE | 2016-10-08 13:52 | PN ---
DATE: 10/08/2016 SUBJECTIVE DATA: No acute changes overnight. The patient is obtunded on multiple pressors. Family at bedside. No fevers. LABORATORY AND DIAGNOSTIC DATA: WBC 14.6, H and H 9.4 and 29.8, platelets 278; neutrophils 88, no bands. BUN 73, creatinine 0.7, sodium 113. INDWELLING: Trach, PEG, Matthew, PICC line. ANTIMICROBIALS: 1. Vancomycin. 2. Cancidas. 3. Meropenem. 4. Flagyl. PHYSICAL EXAMINATION: VITAL SIGNS: Temperature 99.2, pulse 87, respirations 24, blood pressure 78/46, saturation 99 on vent. GENERAL: This is a chronically ill-appearing, middle-aged woman, who is obtunded, in no distress. HEENT: Head atraumatic, normocephalic. Sclerae anicteric. Buccal mucosa dry. NECK: Supple. Tracheostomy present. CHEST: Rise symmetrical. Breath sounds diminished at bases with scattered crackles. HEART: S1, S2. ABDOMEN: Distended. No bowel tones. EXTREMITIES: With bilateral edema. SKIN: Positive for anasarca. ASSESSMENT: 1. Severe sepsis with multisystem organ failure. 2. Acute decompensated congestive heart failure. 3. Cardiomyopathy. 4. Chronic respiratory failure. 5. Healthcare-associated pneumonia. 6. Urinary tract infection. 7. Ascites status post multiple paracentesis. 8. History of muscle dystrophy. 9. Cefzm-vi-btmiaho kidney disease. 10. Dysphagia. PLAN: The patient is DO NOT RESUSCITATE status, covered with broad-spectrum antibiotics, prognosis poor. Continue present care as per primary team and consultants. Dictated By: Anita Ingram NP /reynaldo/laurie /Document#: [id number]
[2016-10-08 15:26] LABS: CALCIUM 7.5 mg/dl (8.4-10.2); CREATININE 0.95 mg/dl (0.44-1.00); POTASSIUM 3.7 mmol/L (3.5-5.1)
[2016-10-08] MEDS: FENTAnyl (DRIP) 1000 mcg/100mL 100 ML IV SCH (15:42)
[2016-10-08] MEDS: CASPOFUNGIN 50 MG in SOD CHLORIDE 0.9% 250 ML IVPB SCH (15:42)
[2016-10-08] MEDS: DEXTROSE 50% 50 ML SYRINGE IV PRN (17:38)
--- NOTE | 2016-10-08 17:51 | PN ---
Date/Time of Note Date/Time of Note DATE: 10/08/16 TIME: 17:49 Assessment/Plan VTE Prophylaxis VTE Prophylaxis Intervention: LMWH Lines/Catheters IV Catheter Type (from Nrsg): PICC Line Central line still needed: Yes (IV abx poor peripheral access ) Urinary Cath still in place: Yes Reason Cath still needed: urinary retention, other (indicate) (strict I/O ) Assessment/Plan Assessment/Plan Septic shock due to healthcare associated pneumonia + UTI - on 4 pressors now Healthcare associated pneumonia Vent dependent respiratory failure, chronic Cardiomyopathy with ejection fraction of 30-35% with biventricular AICD A. fib and a flutter, currently not on anticoagulation, paced Chronic anoxic encephalopathy with currently acute hepatic encephalopathy with high ammonia level Dysphasia s/p PEG tube Diabetes Chronic kidney disease Hypertension Lower extremity quadriplegia Anemia of chronic disease Pulmonary hypertension Plan: Continue sodium bicarbonate drip at 50 cc/hr, on Bumex 2 mg Q 4 hr IV Pulmonary following for ventilato care, very poor prognosis, D/w Husabnd today again, pt is made DNR, Cherrie want to wait one more day before deciding for comfort care lactulose enema, Rifaximin for hepatic encephalopathy on IV abx meropenem and IV flagyl lovenox for DVT prophylaxis , Prevacid for GI prophylaxis appreciate pulmonayr, Nephrology and cardiology help Subjective 24 Hr Interval Summary Free Text/Dictation pt continues to deteriorate dopamine added overnight, on 4 pressors now Exam/Review of Systems Vital Signs Vitals Vital Signs Date Time Temp Pulse Resp B/P Pulse Ox O2 Delivery O2 Flow Rate FiO2 10/08/16 16:00 82 10/08/16 15:15 24 82/63 100 10/08/16 15:00 Mechanical Ventilator 10/08/16 12:00 99.0 10/08/16 07:26 30 Intake and Output 10/07/16 10/07/16 10/08/16 15:00 23:00 07:00 Intake Total 1559.56 ml 1757.72 ml 1356.795 ml Output Total 65 ml 35 ml 65 ml Balance 1494.56 ml 1722.72 ml 1291.795 ml Exam Constitutional: non-verbal ENMT: intubated Neck: supple Respiratory: crackles/rales, diminished breath sounds, other (Bilateral Coarse BS+) Cardiovascular: nl pulses, regular rate and rhythm Gastrointestinal: distended, other (obese ), soft Extremities: normal pulses Neurological: other (sedated on ventilator ) Results Result Diagram: 10/08/16 0430 10/08/16 1445 Results 24 hrs Laboratory Tests Test 10/07/16 20:47 10/08/16 01:04 10/08/16 04:30 10/08/16 05:28 Bedside Glucose 136 132 92 White Blood Count 14.6 H Red Blood Count 3.32 L Hemoglobin 9.4 L Hematocrit 29.8 L Mean Corpuscular Volume 89.8 Mean Corpuscular Hemoglobin 28.3 L Mean Corpuscular Hemoglobin Concent 31.5 L Red Cell Distribution Width 19.0 H Platelet Count 278 Mean Platelet Volume 9.7 Neutrophils % 88.0 H Lymphocytes % 5.1 L Monocytes % 3.8 Eosinophils % 2.5 Basophils % 0.1 Nucleated Red Blood Cells % 0.1 H Neutrophils # (Manual) 13 H Lymphocytes # 0.7 L Monocytes # 0.6 Eosinophils # 0.4 Basophils # 0.0 Nucleated Red Blood Cells # 0.0 Sodium Level 113 *L Potassium Level 3.4 L Chloride Level 83 L Carbon Dioxide Level 15 L Anion Gap 18 H Blood Urea Nitrogen 73 H Creatinine 0.70 Glucose Level 263 #H Calcium Level 7.0 L Phosphorus Level 5.0 H Magnesium Level 2.0 Test 10/08/16 12:34 10/08/16 14:45 10/08/16 16:01 10/08/16 17:35 Bedside Glucose 83 60 L 121 Sodium Level 118 *L Potassium Level 3.7 Chloride Level 87 L Carbon Dioxide Level 16 L Anion Gap 19 H Blood Urea Nitrogen 73 H Creatinine 0.95 Glucose Level 45 #*L Calcium Level 7.5 L Medications Medications Current Medications Ondansetron HCl (Zofran Inj) 4 mg Q6H PRN IV NAUSEA AND/OR VOMITING Last administered on 09/24/16 11:53; Admin Dose 4 MG; Start 09/15/16 at 06:30 Acetaminophen (Tylenol Tab) 650 mg Q6H PRN PO PAIN LEVEL 1-3 OR FEVER Last administered on 09/16/16 20:10; Admin Dose 650 MG; Start 09/15/16 at 06:30 Acetaminophen (Tylenol Supp) 650 mg Q6H PRN TN PAIN LEVEL 1-3 OR FEVER; Start 09/15/16 at 06:30 Amiodarone HCl (Cordarone) 200 mg DAILY GTB Last administered on 10/08/16 10: 21; Admin Dose 200 MG; Start 09/15/16 at 09:00 Bisacodyl (Dulcolax Supp) 10 mg Q24H PRN TN CONSTIPATION Last administered on 22:12; Admin Dose 10 MG; Start 09/15/16 at 06:30 Chlorhexidine Gluconate (Peridex) 15 ml BID MM Last administered on 10/08/16 10:20; Admin Dose 15 ML; Start 09/15/16 at 09:00 Docusate Sodium (Colace) 200 mg QHS PRN PO CONSTIPATION; Start 09/15/16 at 06:30 Lisinopril (Zestril) 2.5 mg BID GTB Last administered on 09/15/16 09:24; Admin Dose 2.5 MG; Start 09/15/16 at 09:00; Status Future Hold Diphenhydramine HCl (Benadryl) 25 mg Q6H PRN IV ITCHING Last administered on 13:56; Admin Dose 25 MG; Start 09/15/16 at 21:00 Miscellaneous Information 1 ea NOTE XX ; Start 09/17/16 at 22:45 Glucose (Glutose) 15 gm Q15M PRN PO DECREASED GLUCOSE; Start 09/17/16 at 22:45 Glucose (Glutose) 22.5 gm Q15M PRN PO DECREASED GLUCOSE; Start 09/17/16 at 22:45 Dextrose (D50w Syringe) 25 ml Q15M PRN IV DECREASED GLUCOSE Last administered on 10/08/16 17:38; Admin Dose 25 ML; Start 09/17/16 at 22:45 Dextrose (D50w Syringe) 50 ml Q15M PRN IV DECREASED GLUCOSE; Start 09/17/16 at 22:45 Glucagon (Glucagen) 1 mg Q15M PRN IM DECREASED GLUCOSE; Start 09/17/16 at 22:45 Glucose (Glutose) 15 gm Q15M PRN BUCCAL DECREASED GLUCOSE; Start 09/17/16 at 22: 45 Acetaminophen (Tylenol Tab) 650 mg Q4 PRN GTB PAIN AND OR ELEVATED TEMP Last administered on 09/23/16 00:59; Admin Dose 650 MG; Start 09/18/16 at 11:30 Albuterol (Proventil 0.083% (Neb)) 2.5 mg Q3H PRN NEB WHEEZING AND SOB; Start 09/18/16 at 11:30 Ascorbic Acid (Vitamin C) 500 mg BID PO Last administered on 10/08/16 10:21; Admin Dose 500 MG; Start 09/18/16 at 21:00 Folic Acid (Folic Acid) 1 mg DAILY GTB Last administered on 10/08/16 10:21; Admin Dose 1 MG; Start 09/19/16 at 09:00 Hydroxyzine HCl (Atarax) 25 mg Q8H PRN PO ITCHING Last administered on 21:23; Admin Dose 25 MG; Start 09/18/16 at 11:30 Lorazepam (Ativan) 1 mg Q8 PRN GTB ANXIETY Last administered on 09/22/16 09:17 ; Admin Dose 1 MG; Start 09/18/16 at 11:30 Magnesium Hydroxide (Milk Of Mag) 30 ml DAILY PRN GTB CONSTIPATION Last administered on 09/23/16 17:19; Admin Dose 30 ML; Start 09/18/16 at 11:30 Sodium Biphosphate/ Sodium Phosphate (Fleet Enema Pediatric) 66.6 ml DAILY PRN TN CONSTIPATION; Start 09/18/16 at 11:30 Lactobacillus Acidophilus/ Rhamnosus (Culturelle) 1 cap BID PO Last administered on 10/08/16 10:20; Admin Dose 1 CAP; Start 09/18/16 at 21:00 Lorazepam (Ativan) 1 mg Q6H PRN IV ANXIETY Last administered on 09/28/16 01:48 ; Admin Dose 1 MG; Start 09/19/16 at 18:30 Midodrine (Proamatine) 5 mg TID GTB Last administered on 10/08/16 12:26; Admin Dose 5 MG; Start 09/21/16 at 06:00 Ferrous Sulfate (Ferrous Sulfate (Ec)) 325 mg TID PO Last administered on 12:26; Admin Dose 325 MG; Start 09/21/16 at 10:00 Multivitamins 30 ml 30 ml DAILY GTB Last administered on 10/08/16 10:20; Admin Dose 30 ML; Start 09/21/16 at 10:30 Vancomycin HCl (Vancocin) 250 ml @ 125 mls/hr Q5D IVPB Last administered on 22:23; Admin Dose 125 MLS/HR; Start 09/21/16 at 22:00 Bacitracin (Bacitracin Oint (Ud)) 1 applic BID TOP Last administered on 10:20; Admin Dose 1 APPLIC; Start 09/23/16 at 21:00 Metoclopramide HCl (Reglan) 10 mg Q6 IV Last administered on 10/08/16 17:38; Admin Dose 10 MG; Start 09/24/16 at 18:00 IV Flush 10 ml 10 ml PRN PRN IV IV PROTOCOL; Start 09/25/16 at 16:00 Meropenem/Sodium Chloride (Merrem 500mg/50 ml(Pmx)) 50 ml @ 200 mls/hr Q12 IVPB Last administered on 10/08/16 12:01; Admin Dose 200 MLS/HR; Start at 21:00 Lansoprazole (Prevacid) 30 mg DAILY@06 GTB Last administered on 10/08/16 05:29 ; Admin Dose 30 MG; Start 09/28/16 at 06:00 Bumetanide 1 mg 1 mg DAILY IV Last administered on 09/30/16 08:32; Admin Dose 1 MG; Start 09/30/16 at 09:00; Status Future Hold Metronidazole (Flagyl 500 Mg (Pmx)) 100 ml @ 100 mls/hr Q8 IVPB Last administered on 10/08/16 15:42; Admin Dose 100 MLS/HR; Start 09/30/16 at 14:30 Insulin Aspart NOVOLOG *MODERATE* ALGORI... Q4 SC Last administered on 06:03; Admin Dose 2 UNIT; Start 09/30/16 at 17:00 Vasopressin/ Dextrose (Vasostrict/D5W) 60 ml @ 1.2 mls/hr Q12H IV Last administered on 10/07/16 22:17; Admin Dose 2.4 MLS/HR; Start 10/01/16 at 11:00 Polyethylene Glycol (Miralax) 17 gm DAILY PEG Last administered on 10/07/16 09 :20; Admin Dose 17 GM; Start 10/03/16 at 11:30 Lactulose (Enulose) 20 gm Q8 PO Last administered on 10/08/16 15:42; Admin Dose 20 GM; Start 10/03/16 at 14:00 Insulin Detemir (Levemir) 30 unit HS SC Last administered on 10/07/16 20:49; Admin Dose 30 UNIT; Start 10/04/16 at 21:00 Rifaximin (Xifaxan) 550 mg BID PO Last administered on 10/08/16 10:21; Admin Dose 550 MG; Start 10/04/16 at 09:00 Lactulose (Lactulose Enema) 100 ml Q6 TN Last administered on 10/08/16 17:38; Admin Dose 100 ML; Start 10/04/16 at 12:00 Enoxaparin Sodium 40 mg 40 mg DAILY SC Last administered on 10/08/16 10:23; Admin Dose 40 MG; Start 10/06/16 at 09:00 Caspofungin 50 mg/ Sodium Chloride 250 ml @ 250 mls/hr Q24H IVPB Last administered on 10/08/16 15:42; Admin Dose 250 MLS/HR; Start 10/06/16 at 15:00 Fentanyl 100 ml @ 1.5 mls/hr TITRATE IV Last administered on 10/08/16 15:42; Admin Dose 2.5 MLS/HR; Start 10/06/16 at 15:00 Norepinephrine 32 mg/Dextrose 250 ml @ 0.46 mls/hr TITRATE IV Last administered on 10/08/16 11:38; Admin Dose 14.06 MLS/HR; Start 10/06/16 at 17: 30 Sodium Bicarbonate/ Dextrose (Na Bicarb/D5W) 1,150 ml @ 50 mls/hr Q23H IV Last administered on 10/08/16 10:34; Admin Dose 50 MLS/HR; Start 10/07/16 at 13 :00 Miscellaneous Information DAILY XX Last administered on 10/08/16 09:19; Admin Dose 1 EA; Start 10/07/16 at 16:07 Dopamine HCl/ Dextrose 250 ml @ 8.295 mls/ hr TITRATE IV Last administered on 10/08/16 16:15; Admin Dose 58.065 MLS/HR; Start 8/24/17 at 06:30 Phenylephrine HCl/ Sodium Chloride (Jose Eduardo-Syneph/NS) 500 ml @ 18.75 mls/ hr TITRATE IV Last administered on 10/08/16 12:59; Admin Dose 56.25 MLS/HR; Start 10/08/16 at 07:11 Miscellaneous Information PLEASE SWITCH ALL DRIPS ... ONCE XX ; Start 10/08/16 at 09:00 Bumetanide/Sodium Chloride (Bumex/NS) 25 ml @ 50 mls/hr Q4H IV Last administered on 10/08/16 15:42; Admin Dose 50 MLS/HR; Start 10/08/16 at 12:00 PAT RUSSELL MD Oct 08, 2016 17:50
[2016-10-08] MEDS: INSULIN DETEMIR [LEVEMIR] 3ML CART SC SCH (21:44)
[2016-10-09] VITALS (87 sets, daily range): BP systolic 73–95; BP diastolic 42–74; PULSE 71–100; RESP 9–24
[2016-10-09] MEDS: ALBUTEROL 18 GM INHALER INH SCH ×7 (00:43→20:58)
[2016-10-09] MEDS: INSULIN ASPART [NOVOLOG] 3 ML PEN SC SCH ×6 (01:00→21:54)
[2016-10-09] MEDS: BUMETANIDE 2 MG in SOD CHLORIDE 0.9% 25 ML IV SCH ×6 (01:06→21:48)
[2016-10-09] MEDS: METOCLOPRAMIDE 10 MG INJ IV SCH ×4 (01:06→18:37)
[2016-10-09] MEDS: LACTULOSE ENEMA 1,000 ML BTL PR SCH ×4 (01:06→18:10)
[2016-10-09] MEDS: DOPamine-D5W 1.6 MG/ML 250 ML IV SCH ×5 (01:15→19:00)
[2016-10-09] MEDS: NORepinephrine 32 MG in DEXTROSE 5% 218 ML IV SCH (05:09)
[2016-10-09] MEDS: PHENYLephrine 160 MG in SOD CHLORIDE 0.9% 484 ML IV SCH ×2 (05:10→14:34)
[2016-10-09] MEDS: LANSOPRAZOLE 30 MG CAP GTB SCH (06:02)
[2016-10-09] MEDS: metroNIDAZOLE 500 MG/NS (PMX) 100 ML IVPB SCH ×3 (06:02→21:50)
[2016-10-09] MEDS: LACTULOSE 30ML CUP PO SCH ×3 (06:03→21:50)
[2016-10-09 06:53] LABS: BASOPHILS % 0.2 % (0.0-2.0); EOSINOPHILS # 0.2 10^3/ul (0.0-0.5); EOSINOPHILS % 1.3 % (0.0-7.0); HEMATOCRIT 31.2 % (37.0-47.0); LYMPHOCYTES # 0.6 10^3/ul (0.8-2.9); LYMPHOCYTES % 4.1 % (15.0-51.0); MEAN CORPUSCULAR HEMOGLOBIN 28.4 pg (29.0-33.0); MEAN CORPUSCULAR HGB CONC 32.1 g/dl (32.0-37.0); MEAN CORPUSCULAR VOLUME 88.6 fl (82.0-101.0); MEAN PLATELET VOLUME 9.4 fl (7.4-10.4); MONOCYTE # 0.5 10^3/ul (0.3-0.9); MONOCYTES % 3.5 % (0.0-11.0); NEUTROPHILS % 90.4 % (39.0-77.0); NUCLEATED RED BLOOD CELLS% 0.3 /100WBC (0.0-0.0); PLATELET COUNT 247 10^3/UL (140-415); RED BLOOD COUNT 3.52 10^6/ul (4.20-5.40); RED CELL DISTRIBUTION WIDTH 18.5 % (11.5-14.5)
[2016-10-09 07:39] LABS: CALCIUM 6.5 mg/dl (8.4-10.2); CREATININE 0.55 mg/dl (0.44-1.00); MAGNESIUM 1.9 mg/dl (1.7-2.5); PHOSPHORUS 4.9 mg/dl (2.5-4.9); POTASSIUM 3.2 mmol/L (3.5-5.1)
--- NOTE | 2016-10-09 08:02 | PN ---
DATE: 10/09/2016 SUBJECTIVE DATA: The patient is critically ill on pressor support, multiple pressors, without any significant clinical change. Patient has overall extremely poor prognosis. OBJECTIVE DATA: VITAL SIGNS: Blood pressure is 85/62, respiratory rate is 24, pulse 88, temperature 98.6. I's and O's: Patient had 5 L in, 750 out. HEENT: Head is normocephalic. NECK: Shows trach. CARDIAC: Regular rate. CARDIAC: Show diminished breath sounds at the base. ABDOMEN: Soft, nontender to palpation. No rebound or guarding. EXTREMITIES: Negative for clubbing, cyanosis. Positive edema, diffuse anasarca. DERMATOLOGIC: No rashes. MUSCULOSKELETAL: No joint effusion. NEUROLOGIC: No change in exam. Patient remains obtunded. LABORATORY AND DIAGNOSTIC DATA: Currently pending. White count is 15.0, hemoglobin 10.0, crit 31.2, platelet count is 247. ASSESSMENT AND PLAN: 1. Anuric acute kidney injury on top of chronic kidney disease with previous baseline 0.6 mg/dL. Patient's is grossly overestimating underlying estimated glomerular filtration rate due to patient's significant muscular atrophy. Patient's acute kidney injury is secondary sepsis and acute tubular necrosis. Patient is not a hemodialysis candidate as she is hemodynamically incapable. At this point, would continue current treatment plan, supportive care. Treat underlying shock. 2. Hyponatremia. Etiology secondary to acute kidney injury and hypotonic fluid. Patient is status post 3 percent sodium chloride, with improvement in sodium from 110 to 118 mEq. We will follow up sodium levels. We will repeat 3 percent if necessary. 3. Hypokalemia, improved. 4. Shock. Etiology is multifactorial, septic, cardiac. Patient is on multiple pressors. Continue broad-spectrum antibiotics, pressor support. Follow up with Cardiology. 5. Mineral bone disorder. Continue to monitor calcium and phosphorus levels. 6. Metabolic acidosis. ABGs reviewed. Patient is on bicarbonate drip. 7. Anemia. Monitor H and H levels. 8. Ventilatory-dependent respiratory failure. Vent settings have been reviewed. ABGs reviewed. 9. Acute decompensated heart failure. Patient is receiving medical management, on dobutamine. Follow up with Cardiology. 10. Sinus arrhythmia. Continue current treatment plan. 11. Dysphagia, status post percutaneous endoscopic gastrostomy. 12. Muscular dystrophy. 13. Acute encephalopathy. The etiology is toxic metabolic. Please note, patient has an extremely poor prognosis, unlikely to survive. Please note, I spent over 30 minutes of critical care time with this patient. Dictated By: Raymon Giordano DO /reynaldo/willy /Document#: [id number]
[2016-10-09] MEDS: DOBUTamine/D5W 2 MG/ML DRIP 250 ML IV SCH ×2 (08:21→18:38)
[2016-10-09] MEDS: [UNRECOGNIZED DRUG - OTHER] XX SCH (09:00)
[2016-10-09] MEDS: POLYETHYLENE GLYCOL 17 GM PACKET PEG SCH (09:00)
--- NOTE | 2016-10-09 09:07 | CONS ---
Date/Time of Note Date/Time of Note DATE: 10/09/16 TIME: 09:05 Assessment/Plan Assessment/Plan Chief Complaint/Hosp Course Spoke to patient's family this morning patient is still on 4 pressors, FiO2 of 30%, nonresponsive to any verbal or tactile stimulation. I expressed the patient's family that she is living hour by hour she is currently a DO NOT RESUSCITATE, refused compassionate extubation yesterday. We will continue to support, give them hope, control symptoms she is currently on a low dose of fentanyl continuous. Goals of care discussed with her , sisters and brother yesterday, prognosis always discussed on a daily basis. Problems: Additional Assessment/Plan Family conference done once again with patient's . He remains hopeful in spite of the fact that patient is on 5 pressors and refuses to change patient 's status to comfort measures. Other family members including patient's siblings are in disagreement and would prefer to withdraw care completely. I have had extensive conversation with patient's on 3 occasions I have been unsuccessful to changes more just comfort measures. I do not think there is an indication for bioethics. Consultation Date/Type/Reason Admit Date/Time Sep 15, 2016 at 01:59 Initial Consult Date Type of Consultation: Palliative care Exam/Review of Systems Vital Signs Vitals Vital Signs Date Time Temp Pulse Resp B/P Pulse Ox O2 Delivery O2 Flow Rate FiO2 10/09/16 08:50 83 24 93 30 10/09/16 08:00 98.8 87/61 Mechanical Ventilator Intake and Output 10/08/16 10/08/16 10/09/16 15:00 23:00 07:00 Intake Total 2068.240 ml 2335.550 ml 1815.240 ml Output Total 55 ml 265 ml 450 ml Balance 2013.240 ml 2070.550 ml 1365.240 ml Results Result Diagram: 10/09/16 0530 10/09/16 0530 Results 24 hrs Laboratory Tests Test 10/08/16 12:34 10/08/16 14:45 10/08/16 16:01 10/08/16 17:35 Bedside Glucose 83 60 L 121 Sodium Level 118 *L Potassium Level 3.7 Chloride Level 87 L Carbon Dioxide Level 16 L Anion Gap 19 H Blood Urea Nitrogen 73 H Creatinine 0.95 Glucose Level 45 #*L Calcium Level 7.5 L Test 10/08/16 21:08 10/09/16 01:14 10/09/16 05:19 10/09/16 05:30 Bedside Glucose 95 99 129 White Blood Count 15.0 H Red Blood Count 3.52 L Hemoglobin 10.0 L Hematocrit 31.2 L Mean Corpuscular Volume 88.6 Mean Corpuscular Hemoglobin 28.4 L Mean Corpuscular Hemoglobin Concent 32.1 Red Cell Distribution Width 18.5 H Platelet Count 247 Mean Platelet Volume 9.4 Neutrophils % 90.4 H Lymphocytes % 4.1 L Monocytes % 3.5 Eosinophils % 1.3 Basophils % 0.2 Nucleated Red Blood Cells % 0.3 H Neutrophils # (Manual) 13.6 H Lymphocytes # 0.6 L Monocytes # 0.5 Eosinophils # 0.2 Basophils # 0.0 Nucleated Red Blood Cells # 0.0 Sodium Level 114 *L Potassium Level 3.2 L Chloride Level 84 L Carbon Dioxide Level 15 L Anion Gap 18 H Blood Urea Nitrogen 64 H Creatinine 0.55 Glucose Level 310 #H Calcium Level 6.5 L Phosphorus Level 4.9 Magnesium Level 1.9 Medications Medications Current Medications Ondansetron HCl (Zofran Inj) 4 mg Q6H PRN IV NAUSEA AND/OR VOMITING Last administered on 09/24/16 11:53; Admin Dose 4 MG; Start 09/15/16 at 06:30 Acetaminophen (Tylenol Tab) 650 mg Q6H PRN PO PAIN LEVEL 1-3 OR FEVER Last administered on 09/16/16 20:10; Admin Dose 650 MG; Start 09/15/16 at 06:30 Acetaminophen (Tylenol Supp) 650 mg Q6H PRN MS PAIN LEVEL 1-3 OR FEVER; Start 09/15/16 at 06:30 Amiodarone HCl (Cordarone) 200 mg DAILY GTB Last administered on 10/08/16 10: 21; Admin Dose 200 MG; Start 09/15/16 at 09:00 Bisacodyl (Dulcolax Supp) 10 mg Q24H PRN [place] CONSTIPATION Last administered on 22:12; Admin Dose 10 MG; Start 09/15/16 at 06:30 Chlorhexidine Gluconate (Peridex) 15 ml BID MM Last administered on 10/08/16 21:09; Admin Dose 15 ML; Start 09/15/16 at 09:00 Docusate Sodium (Colace) 200 mg QHS PRN PO CONSTIPATION; Start 09/15/16 at 06:30 Lisinopril (Zestril) 2.5 mg BID GTB Last administered on 09/15/16 09:24; Admin Dose 2.5 MG; Start 09/15/16 at 09:00; Status Future Hold Diphenhydramine HCl (Benadryl) 25 mg Q6H PRN IV ITCHING Last administered on 13:56; Admin Dose 25 MG; Start 09/15/16 at 21:00 Miscellaneous Information 1 ea NOTE XX ; Start 09/17/16 at 22:45 Glucose (Glutose) 15 gm Q15M PRN PO DECREASED GLUCOSE; Start 09/17/16 at 22:45 Glucose (Glutose) 22.5 gm Q15M PRN PO DECREASED GLUCOSE; Start 09/17/16 at 22:45 Dextrose (D50w Syringe) 25 ml Q15M PRN IV DECREASED GLUCOSE Last administered on 10/08/16 17:38; Admin Dose 25 ML; Start 09/17/16 at 22:45 Dextrose (D50w Syringe) 50 ml Q15M PRN IV DECREASED GLUCOSE; Start 09/17/16 at 22:45 Glucagon (Glucagen) 1 mg Q15M PRN IM DECREASED GLUCOSE; Start 09/17/16 at 22:45 Glucose (Glutose) 15 gm Q15M PRN BUCCAL DECREASED GLUCOSE; Start 09/17/16 at 22: 45 Acetaminophen (Tylenol Tab) 650 mg Q4 PRN GTB PAIN AND OR ELEVATED TEMP Last administered on 09/23/16 00:59; Admin Dose 650 MG; Start 09/18/16 at 11:30 Albuterol (Proventil 0.083% (Neb)) 2.5 mg Q3H PRN NEB WHEEZING AND SOB; Start 09/18/16 at 11:30 Ascorbic Acid (Vitamin C) 500 mg BID PO Last administered on 10/08/16 21:10; Admin Dose 500 MG; Start 09/18/16 at 21:00 Folic Acid (Folic Acid) 1 mg DAILY GTB Last administered on 10/08/16 10:21; Admin Dose 1 MG; Start 09/19/16 at 09:00 Hydroxyzine HCl (Atarax) 25 mg Q8H PRN PO ITCHING Last administered on 21:23; Admin Dose 25 MG; Start 09/18/16 at 11:30 Lorazepam (Ativan) 1 mg Q8 PRN GTB ANXIETY Last administered on 09/22/16 09:17 ; Admin Dose 1 MG; Start 09/18/16 at 11:30 Magnesium Hydroxide (Milk Of Mag) 30 ml DAILY PRN GTB CONSTIPATION Last administered on 09/23/16 17:19; Admin Dose 30 ML; Start 09/18/16 at 11:30 Sodium Biphosphate/ Sodium Phosphate (Fleet Enema Pediatric) 66.6 ml DAILY PRN [place] CONSTIPATION; Start 09/18/16 at 11:30 Lactobacillus Acidophilus/ Rhamnosus (Culturelle) 1 cap BID PO Last administered on 10/08/16 21:12; Admin Dose 1 CAP; Start 09/18/16 at 21:00 Lorazepam (Ativan) 1 mg Q6H PRN IV ANXIETY Last administered on 09/28/16 01:48 ; Admin Dose 1 MG; Start 09/19/16 at 18:30 Midodrine (Proamatine) 5 mg TID GTB Last administered on 10/08/16 21:10; Admin Dose 5 MG; Start 09/21/16 at 06:00 Ferrous Sulfate (Ferrous Sulfate (Ec)) 325 mg TID PO Last administered on 21:10; Admin Dose 325 MG; Start 09/21/16 at 10:00 Multivitamins 30 ml 30 ml DAILY GTB Last administered on 10/08/16 10:20; Admin Dose 30 ML; Start 09/21/16 at 10:30 Vancomycin HCl (Vancocin) 250 ml @ 125 mls/hr Q5D IVPB Last administered on 22:23; Admin Dose 125 MLS/HR; Start 09/21/16 at 22:00 Bacitracin (Bacitracin Oint (Ud)) 1 applic BID TOP Last administered on 21:10; Admin Dose 1 APPLIC; Start 09/23/16 at 21:00 Metoclopramide HCl (Reglan) 10 mg Q6 IV Last administered on 10/09/16 06:02; Admin Dose 10 MG; Start 09/24/16 at 18:00 IV Flush 10 ml 10 ml PRN PRN IV IV PROTOCOL; Start 09/25/16 at 16:00 Meropenem/Sodium Chloride (Merrem 500mg/50 ml(Pmx)) 50 ml @ 200 mls/hr Q12 IVPB Last administered on 10/08/16 21:09; Admin Dose 200 MLS/HR; Start at 21:00 Lansoprazole (Prevacid) 30 mg DAILY@06 GTB Last administered on 10/09/16 06:02 ; Admin Dose 30 MG; Start 09/28/16 at 06:00 Bumetanide 1 mg 1 mg DAILY IV Last administered on 09/30/16 08:32; Admin Dose 1 MG; Start 09/30/16 at 09:00; Status Future Hold Metronidazole (Flagyl 500 Mg (Pmx)) 100 ml @ 100 mls/hr Q8 IVPB Last administered on 10/09/16 06:02; Admin Dose 100 MLS/HR; Start 09/30/16 at 14:30 Insulin Aspart NOVOLOG *MODERATE* ALGORI... Q4 SC Last administered on 06:03; Admin Dose 2 UNIT; Start 09/30/16 at 17:00 Vasopressin/ Dextrose (Vasostrict/D5W) 60 ml @ 1.2 mls/hr Q12H IV Last administered on 10/08/16 20:48; Admin Dose 2.4 MLS/HR; Start 10/01/16 at 11:00 Polyethylene Glycol (Miralax) 17 gm DAILY PEG Last administered on 10/07/16 09 :20; Admin Dose 17 GM; Start 10/03/16 at 11:30 Lactulose (Enulose) 20 gm Q8 PO Last administered on 10/09/16 06:03; Admin Dose 20 GM; Start 10/03/16 at 14:00 Insulin Detemir (Levemir) 30 unit HS SC Last administered on 10/08/16 21:44; Admin Dose 30 UNIT; Start 10/04/16 at 21:00 Rifaximin (Xifaxan) 550 mg BID PO Last administered on 10/08/16 21:10; Admin Dose 550 MG; Start 10/04/16 at 09:00 Lactulose (Lactulose Enema) 100 ml Q6 MS Last administered on 10/09/16 06:02; Admin Dose 100 ML; Start 10/04/16 at 12:00 Enoxaparin Sodium 40 mg 40 mg DAILY SC Last administered on 10/08/16 10:23; Admin Dose 40 MG; Start 10/06/16 at 09:00 Caspofungin 50 mg/ Sodium Chloride 250 ml @ 250 mls/hr Q24H IVPB Last administered on 10/08/16 15:42; Admin Dose 250 MLS/HR; Start 10/06/16 at 15:00 Fentanyl 100 ml @ 1.5 mls/hr TITRATE IV Last administered on 10/08/16 15:42; Admin Dose 2.5 MLS/HR; Start 10/06/16 at 15:00 Norepinephrine 32 mg/Dextrose 250 ml @ 0.46 mls/hr TITRATE IV Last administered on 10/09/16 05:09; Admin Dose 14.06 MLS/HR; Start 10/06/16 at 17: 30 Sodium Bicarbonate/ Dextrose (Na Bicarb/D5W) 1,150 ml @ 50 mls/hr Q23H IV Last administered on 10/08/16 10:34; Admin Dose 50 MLS/HR; Start 10/07/16 at 13 :00 Miscellaneous Information DAILY XX Last administered on 10/08/16 09:19; Admin Dose 1 EA; Start 10/07/16 at 16:07 Dopamine HCl/ Dextrose 250 ml @ 8.295 mls/ hr TITRATE IV Last administered on 10/09/16 05:10; Admin Dose 58.065 MLS/HR; Start 10/08/16 at 06:30 Phenylephrine HCl/ Sodium Chloride (Jose Eduardo-Syneph/NS) 500 ml @ 18.75 mls/ hr TITRATE IV Last administered on 10/09/16 05:10; Admin Dose 56.25 MLS/HR; Start 10/08/16 at 07:11 Miscellaneous Information PLEASE SWITCH ALL DRIPS ... ONCE XX ; Start 10/08/16 at 09:00 Bumetanide/Sodium Chloride (Bumex/NS) 25 ml @ 50 mls/hr Q4H IV Last administered on 10/09/16 04:17; Admin Dose 50 MLS/HR; Start 10/08/16 at 12:00 GOVIND PAGE Oct 09, 2016 09:07
[2016-10-09] MEDS ORDERED: NACL 3% 500 ML IV SCH ×2 (09:30→17:30)
[2016-10-09] MEDS ORDERED: POTASSIUM CHLORIDE 250 ML IVPB ONE (09:30)
--- NOTE | 2016-10-09 09:34 | CONS ---
Date/Time of Note Date/Time of Note DATE: 10/09/16 TIME: 09:31 Assessment/Plan Assessment/Plan Additional Assessment/Plan Ventilator setting; AC of 24, tidal volume 550, PEEP of 5, 50% FiO2. Patient currently on dobutamine at 8 mics per kilogram per minute, fentanyl 25 mics per hour, Levophed 30 mics per minute, phenylephrine 300 mics per minute, dopamine 14 mics per kilogram per minute, and vasopressin drip 0.04 U/min. Assessment and recommendations; 1. Patient admitted with severe sepsis and shock. 2. Congestive heart failure. 3. Severe hyponatremia. Continue current supportive care. Patient's family likely will opt for terminal extubation and provision of comfort care measures. Prognosis is dismal. 35 minutes of critical care time was spent evaluating the patient. Consultation Date/Type/Reason Admit Date/Time Sep 15, 2016 at 01:59 Initial Consult Date 09/16/16 Type of Consultation: Pulmonary/critical care 24 HR Interval Summary Free Text/Dictation Patient condition remains critical. Remains profoundly hypotensive. General exam; young female, morbidly obese, on ventilator via tracheostomy, sedated. Currently in no distress. Exam/Review of Systems Vital Signs Vitals Vital Signs Date Time Temp Pulse Resp B/P Pulse Ox O2 Delivery O2 Flow Rate FiO2 10/09/16 08:50 83 24 93 30 10/09/16 08:00 98.8 87/61 Mechanical Ventilator Intake and Output 10/08/16 10/08/16 10/09/16 15:00 23:00 07:00 Intake Total 2068.240 ml 2335.550 ml 1815.240 ml Output Total 55 ml 265 ml 450 ml Balance 2013.240 ml 2070.550 ml 1365.240 ml Exam HEENT exam; supple neck, positive JVD. Patient has fair dentition. Pupils are small bilaterally. No neck masses. Tracheostomy in place. Chest exam; diminished breath sounds throughout. S1-S2 audible, no murmurs. Regular rhythm. Abdomen exam; soft, protuberant. Bowel sounds are absent. Extremity exam; 2+ anasarca. [employer] exam; patient is sedated. Results Result Diagram: 10/09/16 0530 10/09/16 0530 Results 24 hrs Laboratory Tests Test 10/08/16 12:34 10/08/16 14:45 10/08/16 16:01 10/08/16 17:35 Bedside Glucose 83 60 L 121 Sodium Level 118 *L Potassium Level 3.7 Chloride Level 87 L Carbon Dioxide Level 16 L Anion Gap 19 H Blood Urea Nitrogen 73 H Creatinine 0.95 Glucose Level 45 #*L Calcium Level 7.5 L Test 10/08/16 21:08 10/09/16 01:14 10/09/16 05:19 10/09/16 05:30 Bedside Glucose 95 99 129 White Blood Count 15.0 H Red Blood Count 3.52 L Hemoglobin 10.0 L Hematocrit 31.2 L Mean Corpuscular Volume 88.6 Mean Corpuscular Hemoglobin 28.4 L Mean Corpuscular Hemoglobin Concent 32.1 Red Cell Distribution Width 18.5 H Platelet Count 247 Mean Platelet Volume 9.4 Neutrophils % 90.4 H Lymphocytes % 4.1 L Monocytes % 3.5 Eosinophils % 1.3 Basophils % 0.2 Nucleated Red Blood Cells % 0.3 H Neutrophils # (Manual) 13.6 H Lymphocytes # 0.6 L Monocytes # 0.5 Eosinophils # 0.2 Basophils # 0.0 Nucleated Red Blood Cells # 0.0 Sodium Level 114 *L Potassium Level 3.2 L Chloride Level 84 L Carbon Dioxide Level 15 L Anion Gap 18 H Blood Urea Nitrogen 64 H Creatinine 0.55 Glucose Level 310 #H Calcium Level 6.5 L Phosphorus Level 4.9 Magnesium Level 1.9 Medications Medications Current Medications Ondansetron HCl (Zofran Inj) 4 mg Q6H PRN IV NAUSEA AND/OR VOMITING Last administered on 09/24/16 11:53; Admin Dose 4 MG; Start 09/15/16 at 06:30 Acetaminophen (Tylenol Tab) 650 mg Q6H PRN PO PAIN LEVEL 1-3 OR FEVER Last administered on 09/16/16 20:10; Admin Dose 650 MG; Start 09/15/16 at 06:30 Acetaminophen (Tylenol Supp) 650 mg Q6H PRN [place] PAIN LEVEL 1-3 OR FEVER; Start 09/15/16 at 06:30 Amiodarone HCl (Cordarone) 200 mg DAILY GTB Last administered on 10/08/16 10: 21; Admin Dose 200 MG; Start 09/15/16 at 09:00 Bisacodyl (Dulcolax Supp) 10 mg Q24H PRN [place] CONSTIPATION Last administered on 22:12; Admin Dose 10 MG; Start 09/15/16 at 06:30 Chlorhexidine Gluconate (Peridex) 15 ml BID MM Last administered on 10/08/16 21:09; Admin Dose 15 ML; Start 09/15/16 at 09:00 Docusate Sodium (Colace) 200 mg QHS PRN PO CONSTIPATION; Start 09/15/16 at 06:30 Lisinopril (Zestril) 2.5 mg BID GTB Last administered on 09/15/16 09:24; Admin Dose 2.5 MG; Start 09/15/16 at 09:00; Status Future Hold Diphenhydramine HCl (Benadryl) 25 mg Q6H PRN IV ITCHING Last administered on 13:56; Admin Dose 25 MG; Start 09/15/16 at 21:00 Miscellaneous Information 1 ea NOTE XX ; Start 09/17/16 at 22:45 Glucose (Glutose) 15 gm Q15M PRN PO DECREASED GLUCOSE; Start 09/17/16 at 22:45 Glucose (Glutose) 22.5 gm Q15M PRN PO DECREASED GLUCOSE; Start 09/17/16 at 22:45 Dextrose (D50w Syringe) 25 ml Q15M PRN IV DECREASED GLUCOSE Last administered on 10/08/16 17:38; Admin Dose 25 ML; Start 09/17/16 at 22:45 Dextrose (D50w Syringe) 50 ml Q15M PRN IV DECREASED GLUCOSE; Start 09/17/16 at 22:45 Glucagon (Glucagen) 1 mg Q15M PRN IM DECREASED GLUCOSE; Start 09/17/16 at 22:45 Glucose (Glutose) 15 gm Q15M PRN BUCCAL DECREASED GLUCOSE; Start 09/17/16 at 22: 45 Acetaminophen (Tylenol Tab) 650 mg Q4 PRN GTB PAIN AND OR ELEVATED TEMP Last administered on 09/23/16 00:59; Admin Dose 650 MG; Start 09/18/16 at 11:30 Albuterol (Proventil 0.083% (Neb)) 2.5 mg Q3H PRN NEB WHEEZING AND SOB; Start 09/18/16 at 11:30 Ascorbic Acid (Vitamin C) 500 mg BID PO Last administered on 10/08/16 21:10; Admin Dose 500 MG; Start 09/18/16 at 21:00 Folic Acid (Folic Acid) 1 mg DAILY GTB Last administered on 10/08/16 10:21; Admin Dose 1 MG; Start 09/19/16 at 09:00 Hydroxyzine HCl (Atarax) 25 mg Q8H PRN PO ITCHING Last administered on 21:23; Admin Dose 25 MG; Start 09/18/16 at 11:30 Lorazepam (Ativan) 1 mg Q8 PRN GTB ANXIETY Last administered on 09/22/16 09:17 ; Admin Dose 1 MG; Start 09/18/16 at 11:30 Magnesium Hydroxide (Milk Of Mag) 30 ml DAILY PRN GTB CONSTIPATION Last administered on 09/23/16 17:19; Admin Dose 30 ML; Start 09/18/16 at 11:30 Sodium Biphosphate/ Sodium Phosphate (Fleet Enema Pediatric) 66.6 ml DAILY PRN [place] CONSTIPATION; Start 09/18/16 at 11:30 Lactobacillus Acidophilus/ Rhamnosus (Culturelle) 1 cap BID PO Last administered on 10/08/16 21:12; Admin Dose 1 CAP; Start 09/18/16 at 21:00 Lorazepam (Ativan) 1 mg Q6H PRN IV ANXIETY Last administered on 09/28/16 01:48 ; Admin Dose 1 MG; Start 09/19/16 at 18:30 Midodrine (Proamatine) 5 mg TID GTB Last administered on 10/08/16 21:10; Admin Dose 5 MG; Start 09/21/16 at 06:00 Ferrous Sulfate (Ferrous Sulfate (Ec)) 325 mg TID PO Last administered on 21:10; Admin Dose 325 MG; Start 09/21/16 at 10:00 Multivitamins 30 ml 30 ml DAILY GTB Last administered on 10/08/16 10:20; Admin Dose 30 ML; Start 09/21/16 at 10:30 Vancomycin HCl (Vancocin) 250 ml @ 125 mls/hr Q5D IVPB Last administered on 22:23; Admin Dose 125 MLS/HR; Start 09/21/16 at 22:00 Bacitracin (Bacitracin Oint (Ud)) 1 applic BID TOP Last administered on 21:10; Admin Dose 1 APPLIC; Start 09/23/16 at 21:00 Metoclopramide HCl (Reglan) 10 mg Q6 IV Last administered on 10/09/16 06:02; Admin Dose 10 MG; Start 09/24/16 at 18:00 IV Flush 10 ml 10 ml PRN PRN IV IV PROTOCOL; Start 09/25/16 at 16:00 Meropenem/Sodium Chloride (Merrem 500mg/50 ml(Pmx)) 50 ml @ 200 mls/hr Q12 IVPB Last administered on 10/08/16 21:09; Admin Dose 200 MLS/HR; Start at 21:00 Lansoprazole (Prevacid) 30 mg DAILY@06 GTB Last administered on 10/09/16 06:02 ; Admin Dose 30 MG; Start 09/28/16 at 06:00 Bumetanide 1 mg 1 mg DAILY IV Last administered on 09/30/16 08:32; Admin Dose 1 MG; Start 09/30/16 at 09:00; Status Future Hold Metronidazole (Flagyl 500 Mg (Pmx)) 100 ml @ 100 mls/hr Q8 IVPB Last administered on 10/09/16 06:02; Admin Dose 100 MLS/HR; Start 09/30/16 at 14:30 Insulin Aspart NOVOLOG *MODERATE* ALGORI... Q4 SC Last administered on 06:03; Admin Dose 2 UNIT; Start 09/30/16 at 17:00 Vasopressin/ Dextrose (Vasostrict/D5W) 60 ml @ 1.2 mls/hr Q12H IV Last administered on 10/08/16 20:48; Admin Dose 2.4 MLS/HR; Start 10/01/16 at 11:00 Polyethylene Glycol (Miralax) 17 gm DAILY PEG Last administered on 10/07/16 09 :20; Admin Dose 17 GM; Start 10/03/16 at 11:30 Lactulose (Enulose) 20 gm Q8 PO Last administered on 10/09/16 06:03; Admin Dose 20 GM; Start 10/03/16 at 14:00 Insulin Detemir (Levemir) 30 unit HS SC Last administered on 10/08/16 21:44; Admin Dose 30 UNIT; Start 10/04/16 at 21:00 Rifaximin (Xifaxan) 550 mg BID PO Last administered on 10/08/16 21:10; Admin Dose 550 MG; Start 10/04/16 at 09:00 Lactulose (Lactulose Enema) 100 ml Q6 [place] Last administered on 10/09/16 06:02; Admin Dose 100 ML; Start 10/04/16 at 12:00 Enoxaparin Sodium 40 mg 40 mg DAILY SC Last administered on 10/08/16 10:23; Admin Dose 40 MG; Start 10/06/16 at 09:00 Caspofungin 50 mg/ Sodium Chloride 250 ml @ 250 mls/hr Q24H IVPB Last administered on 10/08/16 15:42; Admin Dose 250 MLS/HR; Start 10/06/16 at 15:00 Fentanyl 100 ml @ 1.5 mls/hr TITRATE IV Last administered on 10/08/16 15:42; Admin Dose 2.5 MLS/HR; Start 10/06/16 at 15:00 Norepinephrine 32 mg/Dextrose 250 ml @ 0.46 mls/hr TITRATE IV Last administered on 10/09/16 05:09; Admin Dose 14.06 MLS/HR; Start 10/06/16 at 17: 30 Sodium Bicarbonate/ Dextrose (Na Bicarb/D5W) 1,150 ml @ 50 mls/hr Q23H IV Last administered on 10/08/16 10:34; Admin Dose 50 MLS/HR; Start 10/07/16 at 13 :00 Miscellaneous Information DAILY XX Last administered on 10/08/16 09:19; Admin Dose 1 EA; Start 10/07/16 at 16:07 Dopamine HCl/ Dextrose 250 ml @ 8.295 mls/ hr TITRATE IV Last administered on 10/09/16 05:10; Admin Dose 58.065 MLS/HR; Start 10/08/16 at 06:30 Phenylephrine HCl/ Sodium Chloride (Jose Eduardo-Syneph/NS) 500 ml @ 18.75 mls/ hr TITRATE IV Last administered on 10/09/16 05:10; Admin Dose 56.25 MLS/HR; Start 10/08/16 at 07:11 Miscellaneous Information PLEASE SWITCH ALL DRIPS ... ONCE XX ; Start 10/08/16 at 09:00 Bumetanide 2 mg/ Sodium Chloride 25 ml @ 50 mls/hr Q4H IV Last administered on 10/09/16t 09:05; Admin Dose 50 MLS/HR; Start 10/08/16 at 12:00 Sodium Chloride 500 ml @ 40 mls/hr [id number] IV ; Start 10/09/16 at 09:30; Stop 10/09/16 at 15:29; Status UNV Potassium Chloride (KCl 40 MEQ/250 ML NS) 250 ml @ 62.5 mls/hr ONCE ONCE IVPB ; Start 10/09/16 at 09:30; Stop 10/09/16 at 13:29; Status UNV RAMON COWAN Oct 09, 2016 09:33
[2016-10-09] MEDS: ENOXAPARIN 40 MG/0.4 ML SYG SC SCH (10:45)
[2016-10-09] MEDS: MEROPENEM 500MG/50 ML (PMX) 50 ML IVPB SCH ×2 (10:46→21:48)
[2016-10-09] MEDS: CHLORHEXIDINE GLUCONATE 15 ML UD CUP MM SCH ×2 (10:46→21:49)
[2016-10-09] MEDS: MULTIVITAMINS 30 ML CUP GTB SCH (10:46)
[2016-10-09] MEDS: BACITRACIN 0.9 GM OINT TOP SCH ×2 (10:46→21:49)
[2016-10-09] MEDS: AMIODARONE 200 MG TAB GTB SCH (10:47)
[2016-10-09] MEDS: FOLIC ACID 1 MG TAB GTB SCH (10:47)
[2016-10-09] MEDS: FERROUS SULFATE (EC) 325 MG TAB PO SCH ×3 (10:47→21:49)
[2016-10-09] MEDS: LACTOBACILLUS RHAMNOSUS CAP PO SCH ×2 (10:47→21:49)
[2016-10-09] MEDS: RIFAXIMIN 550 MG TAB PO SCH ×2 (10:47→21:49)
[2016-10-09] MEDS: MIDODRINE 5 MG TAB GTB SCH ×3 (10:47→21:48)
[2016-10-09] MEDS: ASCORBIC ACID 500 MG TAB PO SCH ×2 (10:48→21:49)
--- NOTE | 2016-10-09 10:48 | CONS ---
Date/Time of Note Date/Time of Note DATE: 10/09/16 TIME: 10:46 Assessment/Plan Assessment/Plan Chief Complaint/Hosp Course Shock - likely multifactorial, at least partially cardiogenic. Now on 4 pressors and dobutamine without much help Healthcare-associated pneumonia - on antibiotics Acute on chronic systolic heart failure: grossly decompensated Cardiomyopathy, LVEF 20-25% - unclear etiology, unclear if patient has ever had ischemic workup, possibly due to muscular dystrophy Acute kidney injury on chronic kidney disease: resolved. Remains stable despite hemodynamics Chronic ventilator-dependent respiratory failure Muscular dystrophy Paroxysmal atrial fibrillation and atrial flutter History of ventricular tachycardia (Torsades de pointes) - status post Bi-V ICD upgrade January 2015 ([employer]) Diabetes mellitus Anemia of chronic disease History of right lower extremity deep vein thrombosis Severe peripheral arterial disease - prior CT LE angio with evidence of OWNER SFA and severe disease of popliteal -dobutamine 7.5mcg/kg/min -continue levophed, vasopressin, phenylephrine, dopamine -continue bumex 2mg q4h and with spot dosing of diuril as UOP better -continue amiodarone 200mg daily -overall very poor prognosis >40 min critical care time Problems: Consultation Date/Type/Reason Admit Date/Time Sep 15, 2016 at 01:59 Initial Consult Date 09/18/16 Type of Consultation: Cardiology 24 HR Interval Summary Free Text/Dictation Remains on 4 pressors and dobutamine. UOP slightly better Exam/Review of Systems Vital Signs Vitals Vital Signs Date Time Temp Pulse Resp B/P Pulse Ox O2 Delivery O2 Flow Rate FiO2 10/09/16 08:50 83 24 93 30 10/09/16 08:00 98.8 87/61 Mechanical Ventilator Intake and Output 10/08/16 10/08/16 10/09/16 15:00 23:00 07:00 Intake Total 2068.240 ml 2335.550 ml 1815.240 ml Output Total 55 ml 265 ml 450 ml Balance 2013.240 ml 2070.550 ml 1365.240 ml Exam Constitutional: No alert, No distress Head: atraumatic, normocephalic Eyes: No nl conjunctiva ENMT: No nl lips & teeth Neck: jvd (15cm) Respiratory: crackles/rales, diminished breath sounds, No clear to auscultation Cardiovascular: edema (4+ anasarca ), regular rate and rhythm, systolic murmur (2/6 DEVON) Gastrointestinal: distended, soft Extremities: No normal pulses Neurological: No nl mental status, No nl speech Results Result Diagram: 10/09/16 0530 10/09/16 0530 Results 24 hrs Laboratory Tests Test 10/08/16 12:34 10/08/16 14:45 10/08/16 16:01 10/08/16 17:35 Bedside Glucose 83 60 L 121 Sodium Level 118 *L Potassium Level 3.7 Chloride Level 87 L Carbon Dioxide Level 16 L Anion Gap 19 H Blood Urea Nitrogen 73 H Creatinine 0.95 Glucose Level 45 #*L Calcium Level 7.5 L Test 10/08/16 21:08 10/09/16 01:14 10/09/16 05:19 10/09/16 05:30 Bedside Glucose 95 99 129 White Blood Count 15.0 H Red Blood Count 3.52 L Hemoglobin 10.0 L Hematocrit 31.2 L Mean Corpuscular Volume 88.6 Mean Corpuscular Hemoglobin 28.4 L Mean Corpuscular Hemoglobin Concent 32.1 Red Cell Distribution Width 18.5 H Platelet Count 247 Mean Platelet Volume 9.4 Neutrophils % 90.4 H Lymphocytes % 4.1 L Monocytes % 3.5 Eosinophils % 1.3 Basophils % 0.2 Nucleated Red Blood Cells % 0.3 H Neutrophils # (Manual) 13.6 H Lymphocytes # 0.6 L Monocytes # 0.5 Eosinophils # 0.2 Basophils # 0.0 Nucleated Red Blood Cells # 0.0 Sodium Level 114 *L Potassium Level 3.2 L Chloride Level 84 L Carbon Dioxide Level 15 L Anion Gap 18 H Blood Urea Nitrogen 64 H Creatinine 0.55 Glucose Level 310 #H Calcium Level 6.5 L Phosphorus Level 4.9 Magnesium Level 1.9 Medications Medications Current Medications Ondansetron HCl (Zofran Inj) 4 mg Q6H PRN IV NAUSEA AND/OR VOMITING Last administered on 09/24/16 11:53; Admin Dose 4 MG; Start 09/15/16 at 06:30 Acetaminophen (Tylenol Tab) 650 mg Q6H PRN PO PAIN LEVEL 1-3 OR FEVER Last administered on 09/16/16 20:10; Admin Dose 650 MG; Start 09/15/16 at 06:30 Acetaminophen (Tylenol Supp) 650 mg Q6H PRN [place] PAIN LEVEL 1-3 OR FEVER; Start 09/15/16 at 06:30 Amiodarone HCl (Cordarone) 200 mg DAILY GTB Last administered on 10/08/16 10: 21; Admin Dose 200 MG; Start 09/15/16 at 09:00 Bisacodyl (Dulcolax Supp) 10 mg Q24H PRN [place] CONSTIPATION Last administered on 22:12; Admin Dose 10 MG; Start 09/15/16 at 06:30 Chlorhexidine Gluconate (Peridex) 15 ml BID MM Last administered on 10/08/16 21:09; Admin Dose 15 ML; Start 09/15/16 at 09:00 Docusate Sodium (Colace) 200 mg QHS PRN PO CONSTIPATION; Start 09/15/16 at 06:30 Lisinopril (Zestril) 2.5 mg BID GTB Last administered on 09/15/16 09:24; Admin Dose 2.5 MG; Start 09/15/16 at 09:00; Status Future Hold Diphenhydramine HCl (Benadryl) 25 mg Q6H PRN IV ITCHING Last administered on 13:56; Admin Dose 25 MG; Start 09/15/16 at 21:00 Miscellaneous Information 1 ea NOTE XX ; Start 09/17/16 at 22:45 Glucose (Glutose) 15 gm Q15M PRN PO DECREASED GLUCOSE; Start 09/17/16 at 22:45 Glucose (Glutose) 22.5 gm Q15M PRN PO DECREASED GLUCOSE; Start 09/17/16 at 22:45 Dextrose (D50w Syringe) 25 ml Q15M PRN IV DECREASED GLUCOSE Last administered on 10/08/16 17:38; Admin Dose 25 ML; Start 09/17/16 at 22:45 Dextrose (D50w Syringe) 50 ml Q15M PRN IV DECREASED GLUCOSE; Start 09/17/16 at 22:45 Glucagon (Glucagen) 1 mg Q15M PRN IM DECREASED GLUCOSE; Start 09/17/16 at 22:45 Glucose (Glutose) 15 gm Q15M PRN BUCCAL DECREASED GLUCOSE; Start 09/17/16 at 22: 45 Acetaminophen (Tylenol Tab) 650 mg Q4 PRN GTB PAIN AND OR ELEVATED TEMP Last administered on 09/23/16 00:59; Admin Dose 650 MG; Start 09/18/16 at 11:30 Albuterol (Proventil 0.083% (Neb)) 2.5 mg Q3H PRN NEB WHEEZING AND SOB; Start 09/18/16 at 11:30 Ascorbic Acid (Vitamin C) 500 mg BID PO Last administered on 10/08/16 21:10; Admin Dose 500 MG; Start 09/18/16 at 21:00 Folic Acid (Folic Acid) 1 mg DAILY GTB Last administered on 10/08/16 10:21; Admin Dose 1 MG; Start 09/19/16 at 09:00 Hydroxyzine HCl (Atarax) 25 mg Q8H PRN PO ITCHING Last administered on 21:23; Admin Dose 25 MG; Start 09/18/16 at 11:30 Lorazepam (Ativan) 1 mg Q8 PRN GTB ANXIETY Last administered on 09/22/16 09:17 ; Admin Dose 1 MG; Start 09/18/16 at 11:30 Magnesium Hydroxide (Milk Of Mag) 30 ml DAILY PRN GTB CONSTIPATION Last administered on 09/23/16 17:19; Admin Dose 30 ML; Start 09/18/16 at 11:30 Sodium Biphosphate/ Sodium Phosphate (Fleet Enema Pediatric) 66.6 ml DAILY PRN [place] CONSTIPATION; Start 09/18/16 at 11:30 Lactobacillus Acidophilus/ Rhamnosus (Culturelle) 1 cap BID PO Last administered on 10/08/16 21:12; Admin Dose 1 CAP; Start 09/18/16 at 21:00 Lorazepam (Ativan) 1 mg Q6H PRN IV ANXIETY Last administered on 09/28/16 01:48 ; Admin Dose 1 MG; Start 09/19/16 at 18:30 Midodrine (Proamatine) 5 mg TID GTB Last administered on 10/08/16 21:10; Admin Dose 5 MG; Start 09/21/16 at 06:00 Ferrous Sulfate (Ferrous Sulfate (Ec)) 325 mg TID PO Last administered on 21:10; Admin Dose 325 MG; Start 09/21/16 at 10:00 Multivitamins 30 ml 30 ml DAILY GTB Last administered on 10/08/16 10:20; Admin Dose 30 ML; Start 09/21/16 at 10:30 Vancomycin HCl (Vancocin) 250 ml @ 125 mls/hr Q5D IVPB Last administered on 22:23; Admin Dose 125 MLS/HR; Start 09/21/16 at 22:00 Bacitracin (Bacitracin Oint (Ud)) 1 applic BID TOP Last administered on 21:10; Admin Dose 1 APPLIC; Start 09/23/16 at 21:00 Metoclopramide HCl (Reglan) 10 mg Q6 IV Last administered on 10/09/16 06:02; Admin Dose 10 MG; Start 09/24/16 at 18:00 IV Flush 10 ml 10 ml PRN PRN IV IV PROTOCOL; Start 09/25/16 at 16:00 Meropenem/Sodium Chloride (Merrem 500mg/50 ml(Pmx)) 50 ml @ 200 mls/hr Q12 IVPB Last administered on 10/08/16 21:09; Admin Dose 200 MLS/HR; Start at 21:00 Lansoprazole (Prevacid) 30 mg DAILY@06 GTB Last administered on 10/09/16 06:02 ; Admin Dose 30 MG; Start 09/28/16 at 06:00 Bumetanide 1 mg 1 mg DAILY IV Last administered on 09/30/16 08:32; Admin Dose 1 MG; Start 09/30/16 at 09:00; Status Future Hold Metronidazole (Flagyl 500 Mg (Pmx)) 100 ml @ 100 mls/hr Q8 IVPB Last administered on 10/09/16 06:02; Admin Dose 100 MLS/HR; Start 09/30/16 at 14:30 Insulin Aspart NOVOLOG *MODERATE* ALGORI... Q4 SC Last administered on 06:03; Admin Dose 2 UNIT; Start 09/30/16 at 17:00 Vasopressin/ Dextrose (Vasostrict/D5W) 60 ml @ 1.2 mls/hr Q12H IV Last administered on 10/08/16 20:48; Admin Dose 2.4 MLS/HR; Start 10/01/16 at 11:00 Polyethylene Glycol (Miralax) 17 gm DAILY PEG Last administered on 10/07/16 09 :20; Admin Dose 17 GM; Start 10/03/16 at 11:30 Lactulose (Enulose) 20 gm Q8 PO Last administered on 10/09/16 06:03; Admin Dose 20 GM; Start 10/03/16 at 14:00 Insulin Detemir (Levemir) 30 unit HS SC Last administered on 10/08/16 21:44; Admin Dose 30 UNIT; Start 10/04/16 at 21:00 Rifaximin (Xifaxan) 550 mg BID PO Last administered on 10/08/16 21:10; Admin Dose 550 MG; Start 10/04/16 at 09:00 Lactulose (Lactulose Enema) 100 ml Q6 [place] Last administered on 10/09/16 06:02; Admin Dose 100 ML; Start 10/04/16 at 12:00 Enoxaparin Sodium 40 mg 40 mg DAILY SC Last administered on 10/08/16 10:23; Admin Dose 40 MG; Start 10/06/16 at 09:00 Caspofungin 50 mg/ Sodium Chloride 250 ml @ 250 mls/hr Q24H IVPB Last administered on 10/08/16 15:42; Admin Dose 250 MLS/HR; Start 10/06/16 at 15:00 Fentanyl 100 ml @ 1.5 mls/hr TITRATE IV Last administered on 10/08/16 15:42; Admin Dose 2.5 MLS/HR; Start 10/06/16 at 15:00 Norepinephrine 32 mg/Dextrose 250 ml @ 0.46 mls/hr TITRATE IV Last administered on 10/09/16 05:09; Admin Dose 14.06 MLS/HR; Start 10/06/16 at 17: 30 Sodium Bicarbonate/ Dextrose (Na Bicarb/D5W) 1,150 ml @ 50 mls/hr Q23H IV Last administered on 10/08/16 10:34; Admin Dose 50 MLS/HR; Start 10/07/16 at 13 :00 Miscellaneous Information DAILY XX Last administered on 10/08/16 09:19; Admin Dose 1 EA; Start 10/07/16 at 16:07 Dopamine HCl/ Dextrose 250 ml @ 8.295 mls/ hr TITRATE IV Last administered on 10/09/16 09:35; Admin Dose 58.065 MLS/HR; Start 10/08/16 at 06:30 Phenylephrine HCl/ Sodium Chloride (Jose Eduardo-Syneph/NS) 500 ml @ 18.75 mls/ hr TITRATE IV Last administered on 10/09/16 05:10; Admin Dose 56.25 MLS/HR; Start 10/08/16 at 07:11 Miscellaneous Information PLEASE SWITCH ALL DRIPS ... ONCE XX ; Start 10/08/16 at 09:00 Bumetanide 2 mg/ Sodium Chloride 25 ml @ 50 mls/hr Q4H IV Last administered on 10/09/16 09:05; Admin Dose 50 MLS/HR; Start 10/08/16 at 12:00 Sodium Chloride 500 ml @ 40 mls/hr [id number] IV ; Start 10/09/16 at 09:30; Stop 10/09/16 at 15:29 Potassium Chloride (KCl 40 MEQ/250 ML NS) 250 ml @ 62.5 mls/hr ONCE ONCE IVPB ; Start 10/09/16 at 09:30; Stop 10/09/16 at 13:29 GÓMEZ BURNHAM Oct 09, 2016 10:48
[2016-10-09] MEDS: SODIUM BICARBONATE (IV ADD) 150 MEQ in DEXTROSE 5% 1,000 ML IV SCH ×2 (11:00→12:04)
[2016-10-09] MEDS: VASOPRESSIN 60 UNIT in DEXTROSE 5% 57 ML IV SCH ×2 (11:00→18:39)
[2016-10-09] MEDS ORDERED: CHLOROTHIAZIDE 500 MG INJ IV ONE (12:00)
[2016-10-09] MEDS ORDERED: CHLOROTHIAZIDE 500 MG in SOD CHLORIDE 0.9% 50 ML IVPB ONE (13:00)
--- NOTE | 2016-10-09 14:05 | CONS ---
Date/Time of Note Date/Time of Note DATE: 10/09/16 TIME: 14:04 Assessment/Plan Assessment/Plan Chief Complaint/Hosp Course Spoke to patient's family this morning patient is still on 4 pressors, FiO2 of 30%, nonresponsive to any verbal or tactile stimulation. I expressed the patient's family that she is living hour by hour she is currently a DO NOT RESUSCITATE, refused compassionate extubation yesterday. We will continue to support, give them hope, control symptoms she is currently on a low dose of fentanyl continuous. Goals of care discussed with her , sisters and brother yesterday, prognosis always discussed on a daily basis. Problems: Additional Assessment/Plan Spoke to patient's once again he agrees to compassionate extubation tomorrow morning at 1000. Family members will be available patient currently on 5 pressor systolic blood pressure hovers into the 80s. Consultation Date/Type/Reason Admit Date/Time Sep 15, 2016 at 01:59 Initial Consult Date Type of Consultation: Palliative care Exam/Review of Systems Vital Signs Vitals Vital Signs Date Time Temp Pulse Resp B/P Pulse Ox O2 Delivery O2 Flow Rate FiO2 10/09/16 13:26 84 24 99 100 10/09/16 11:30 76/42 10/09/16 11:00 Mechanical Ventilator 10/09/16 08:00 98.8 Intake and Output 10/08/16 10/08/16 10/09/16 15:00 23:00 07:00 Intake Total 2068.240 ml 2335.550 ml 1815.240 ml Output Total 55 ml 265 ml 450 ml Balance 2013.240 ml 2070.550 ml 1365.240 ml Results Result Diagram: 10/09/16 0530 10/09/16 0530 Results 24 hrs Laboratory Tests Test 10/08/16 14:45 10/08/16 16:01 10/08/16 17:35 10/08/16 21:08 Sodium Level 118 *L Potassium Level 3.7 Chloride Level 87 L Carbon Dioxide Level 16 L Anion Gap 19 H Blood Urea Nitrogen 73 H Creatinine 0.95 Glucose Level 45 #*L Calcium Level 7.5 L Bedside Glucose 60 L 121 95 Test 10/09/16 01:14 10/09/16 05:19 10/09/16 05:30 10/09/16 10:59 Bedside Glucose 99 129 188 White Blood Count 15.0 H Red Blood Count 3.52 L Hemoglobin 10.0 L Hematocrit 31.2 L Mean Corpuscular Volume 88.6 Mean Corpuscular Hemoglobin 28.4 L Mean Corpuscular Hemoglobin Concent 32.1 Red Cell Distribution Width 18.5 H Platelet Count 247 Mean Platelet Volume 9.4 Neutrophils % 90.4 H Lymphocytes % 4.1 L Monocytes % 3.5 Eosinophils % 1.3 Basophils % 0.2 Nucleated Red Blood Cells % 0.3 H Neutrophils # (Manual) 13.6 H Lymphocytes # 0.6 L Monocytes # 0.5 Eosinophils # 0.2 Basophils # 0.0 Nucleated Red Blood Cells # 0.0 Sodium Level 114 *L Potassium Level 3.2 L Chloride Level 84 L Carbon Dioxide Level 15 L Anion Gap 18 H Blood Urea Nitrogen 64 H Creatinine 0.55 Glucose Level 310 #H Calcium Level 6.5 L Phosphorus Level 4.9 Magnesium Level 1.9 Test 10/09/16 13:42 Bedside Glucose 131 Medications Medications Current Medications Ondansetron HCl (Zofran Inj) 4 mg Q6H PRN IV NAUSEA AND/OR VOMITING Last administered on 09/24/16 11:53; Admin Dose 4 MG; Start 09/15/16 at 06:30 Acetaminophen (Tylenol Tab) 650 mg Q6H PRN PO PAIN LEVEL 1-3 OR FEVER Last administered on 09/16/16 20:10; Admin Dose 650 MG; Start 09/15/16 at 06:30 Acetaminophen (Tylenol Supp) 650 mg Q6H PRN [place] PAIN LEVEL 1-3 OR FEVER; Start 09/15/16 at 06:30 Amiodarone HCl (Cordarone) 200 mg DAILY GTB Last administered on 10/09/16 10: 47; Admin Dose 200 MG; Start 09/15/16 at 09:00 Bisacodyl (Dulcolax Supp) 10 mg Q24H PRN [place] CONSTIPATION Last administered on 22:12; Admin Dose 10 MG; Start 09/15/16 at 06:30 Chlorhexidine Gluconate (Peridex) 15 ml BID MM Last administered on 10/09/16 10:46; Admin Dose 15 ML; Start 09/15/16 at 09:00 Docusate Sodium (Colace) 200 mg QHS PRN PO CONSTIPATION; Start 09/15/16 at 06:30 Lisinopril (Zestril) 2.5 mg BID GTB Last administered on 09/15/16 09:24; Admin Dose 2.5 MG; Start 09/15/16 at 09:00; Status Future Hold Diphenhydramine HCl (Benadryl) 25 mg Q6H PRN IV ITCHING Last administered on 13:56; Admin Dose 25 MG; Start 09/15/16 at 21:00 Miscellaneous Information 1 ea NOTE XX ; Start 09/17/16 at 22:45 Glucose (Glutose) 15 gm Q15M PRN PO DECREASED GLUCOSE; Start 09/17/16 at 22:45 Glucose (Glutose) 22.5 gm Q15M PRN PO DECREASED GLUCOSE; Start 09/17/16 at 22:45 Dextrose (D50w Syringe) 25 ml Q15M PRN IV DECREASED GLUCOSE Last administered on 10/08/16 17:38; Admin Dose 25 ML; Start 09/17/16 at 22:45 Dextrose (D50w Syringe) 50 ml Q15M PRN IV DECREASED GLUCOSE; Start 09/17/16 at 22:45 Glucagon (Glucagen) 1 mg Q15M PRN IM DECREASED GLUCOSE; Start 09/17/16 at 22:45 Glucose (Glutose) 15 gm Q15M PRN BUCCAL DECREASED GLUCOSE; Start 09/17/16 at 22: 45 Acetaminophen (Tylenol Tab) 650 mg Q4 PRN GTB PAIN AND OR ELEVATED TEMP Last administered on 09/23/16 00:59; Admin Dose 650 MG; Start 09/18/16 at 11:30 Albuterol (Proventil 0.083% (Neb)) 2.5 mg Q3H PRN NEB WHEEZING AND SOB; Start 09/18/16 at 11:30 Ascorbic Acid (Vitamin C) 500 mg BID PO Last administered on 10/09/16 10:48; Admin Dose 500 MG; Start 09/18/16 at 21:00 Folic Acid (Folic Acid) 1 mg DAILY GTB Last administered on 10/09/16 10:47; Admin Dose 1 MG; Start 09/19/16 at 09:00 Hydroxyzine HCl (Atarax) 25 mg Q8H PRN PO ITCHING Last administered on 21:23; Admin Dose 25 MG; Start 09/18/16 at 11:30 Lorazepam (Ativan) 1 mg Q8 PRN GTB ANXIETY Last administered on 09/22/16 09:17 ; Admin Dose 1 MG; Start 09/18/16 at 11:30 Magnesium Hydroxide (Milk Of Mag) 30 ml DAILY PRN GTB CONSTIPATION Last administered on 09/23/16 17:19; Admin Dose 30 ML; Start 09/18/16 at 11:30 Sodium Biphosphate/ Sodium Phosphate (Fleet Enema Pediatric) 66.6 ml DAILY PRN [place] CONSTIPATION; Start 09/18/16 at 11:30 Lactobacillus Acidophilus/ Rhamnosus (Culturelle) 1 cap BID PO Last administered on 10/09/16 10:47; Admin Dose 1 CAP; Start 09/18/16 at 21:00 Lorazepam (Ativan) 1 mg Q6H PRN IV ANXIETY Last administered on 09/28/16 01:48 ; Admin Dose 1 MG; Start 09/19/16 at 18:30 Midodrine (Proamatine) 5 mg TID GTB Last administered on 10/09/16 10:47; Admin Dose 5 MG; Start 09/21/16 at 06:00 Ferrous Sulfate (Ferrous Sulfate (Ec)) 325 mg TID PO Last administered on 10:47; Admin Dose 325 MG; Start 09/21/16 at 10:00 Multivitamins 30 ml 30 ml DAILY GTB Last administered on 10/09/16 10:46; Admin Dose 30 ML; Start 09/21/16 at 10:30 Vancomycin HCl (Vancocin) 250 ml @ 125 mls/hr Q5D IVPB Last administered on 22:23; Admin Dose 125 MLS/HR; Start 09/21/16 at 22:00 Bacitracin (Bacitracin Oint (Ud)) 1 applic BID TOP Last administered on 10:46; Admin Dose 1 APPLIC; Start 09/23/16 at 21:00 Metoclopramide HCl (Reglan) 10 mg Q6 IV Last administered on 10/09/16 11:57; Admin Dose 10 MG; Start 09/24/16 at 18:00 IV Flush 10 ml 10 ml PRN PRN IV IV PROTOCOL; Start 09/25/16 at 16:00 Meropenem/Sodium Chloride (Merrem 500mg/50 ml(Pmx)) 50 ml @ 200 mls/hr Q12 IVPB Last administered on 10/09/16 10:46; Admin Dose 200 MLS/HR; Start at 21:00 Lansoprazole (Prevacid) 30 mg DAILY@06 GTB Last administered on 10/09/16 06:02 ; Admin Dose 30 MG; Start 09/28/16 at 06:00 Bumetanide 1 mg 1 mg DAILY IV Last administered on 09/30/16 08:32; Admin Dose 1 MG; Start 09/30/16 at 09:00; Status Future Hold Metronidazole (Flagyl 500 Mg (Pmx)) 100 ml @ 100 mls/hr Q8 IVPB Last administered on 10/09/16 13:46; Admin Dose 100 MLS/HR; Start 09/30/16 at 14:30 Insulin Aspart NOVOLOG *MODERATE* ALGORI... Q4 SC Last administered on 11:01; Admin Dose 4 UNIT; Start 09/30/16 at 17:00 Vasopressin/ Dextrose (Vasostrict/D5W) 60 ml @ 1.2 mls/hr Q12H IV Last administered on 10/08/16 20:48; Admin Dose 2.4 MLS/HR; Start 10/01/16 at 11:00 Polyethylene Glycol (Miralax) 17 gm DAILY PEG Last administered on 10/07/16 09 :20; Admin Dose 17 GM; Start 10/03/16 at 11:30 Lactulose (Enulose) 20 gm Q8 PO Last administered on 10/09/16 06:03; Admin Dose 20 GM; Start 10/03/16 at 14:00 Insulin Detemir (Levemir) 30 unit HS SC Last administered on 10/08/16 21:44; Admin Dose 30 UNIT; Start 10/04/16 at 21:00 Rifaximin (Xifaxan) 550 mg BID PO Last administered on 10/09/16 10:47; Admin Dose 550 MG; Start 10/04/16 at 09:00 Lactulose (Lactulose Enema) 100 ml Q6 [place] Last administered on 10/09/16 11:57; Admin Dose 100 ML; Start 10/04/16 at 12:00 Enoxaparin Sodium 40 mg 40 mg DAILY SC Last administered on 10/09/16 10:45; Admin Dose 40 MG; Start 10/06/16 at 09:00 Caspofungin 50 mg/ Sodium Chloride 250 ml @ 250 mls/hr Q24H IVPB Last administered on 10/08/16 15:42; Admin Dose 250 MLS/HR; Start 10/06/16 at 15:00 Fentanyl 100 ml @ 1.5 mls/hr TITRATE IV Last administered on 10/08/16 15:42; Admin Dose 2.5 MLS/HR; Start 10/06/16 at 15:00 Norepinephrine 32 mg/Dextrose 250 ml @ 0.46 mls/hr TITRATE IV Last administered on 10/09/16 05:09; Admin Dose 14.06 MLS/HR; Start 10/06/16 at 17: 30 Sodium Bicarbonate/ Dextrose (Na Bicarb/D5W) 1,150 ml @ 50 mls/hr Q23H IV Last administered on 10/09/16 12:04; Admin Dose 50 MLS/HR; Start 10/07/16 at 13 :00 Miscellaneous Information DAILY XX Last administered on 10/08/16 09:19; Admin Dose 1 EA; Start 10/07/16 at 16:07 Dopamine HCl/ Dextrose 250 ml @ 8.295 mls/ hr TITRATE IV Last administered on 10/09/16 09:35; Admin Dose 58.065 MLS/HR; Start 10/08/16 at 06:30 Phenylephrine HCl/ Sodium Chloride (Jose Eduardo-Syneph/NS) 500 ml @ 18.75 mls/ hr TITRATE IV Last administered on 10/09/16 05:10; Admin Dose 56.25 MLS/HR; Start 10/08/16 at 07:11 Miscellaneous Information PLEASE SWITCH ALL DRIPS ... ONCE XX ; Start 10/08/16 at 09:00 Bumetanide 2 mg/ Sodium Chloride 25 ml @ 50 mls/hr Q4H IV Last administered on 10/09/16 11:57; Admin Dose 50 MLS/HR; Start 10/08/16 at 12:00 Sodium Chloride (Sodium Chloride Iv 3%) 500 ml @ 40 mls/hr [id number] IV Last administered on 10/09/16t 13:47; Admin Dose 40 MLS/HR; Start 10/09/16 at 09:30; Stop 10/09/16 at 15:29 GOVIND PAGE Oct 09, 2016 14:04
[2016-10-09] MEDS: CASPOFUNGIN 50 MG in SOD CHLORIDE 0.9% 250 ML IVPB SCH (15:28)
[2016-10-09 17:04] LABS: CALCIUM 6.9 mg/dl (8.4-10.2)
--- NOTE | 2016-10-09 17:06 | RADRPT ---
Vent Rate: 104 bpm RR Interval: 0 msec DC Interval: 154 msec QRS Duration: 42 msec QT Interval: 418 msec QTC Interval: 549 msec P-R-T Watkins: 32 - -60 - 104 degrees Electronic atrial and ventricular paced rhythm. Indeterminate axis Pulmonary disease pattern Septal infarct , age undetermined ST amp; T wave abnormality, consider lateral ischemia Abnormal ECG Electronically Signed By: Kwabena Pickard [id number]
[2016-10-09 17:07] LABS: CREATININE 0.84 mg/dl (0.44-1.00); POTASSIUM 4.3 mmol/L (3.5-5.1)
--- NOTE | 2016-10-09 17:40 | PN ---
Date/Time of Note Date/Time of Note DATE: 10/09/16 TIME: 17:37 Assessment/Plan VTE Prophylaxis VTE Prophylaxis Intervention: LMWH Lines/Catheters IV Catheter Type (from Nrs): PICC Line Central line still needed: Yes (dificult IV access, multiple pressors and IV abx ) Urinary Cath still in place: Yes Reason Cath still needed: urinary retention, other (indicate) (strict I/O ) Assessment/Plan Assessment/Plan Septic shock due to healthcare associated pneumonia + UTI - on 4 pressors now Healthcare associated pneumonia Vent dependent respiratory failure, chronic Cardiomyopathy with ejection fraction of 30-35% with biventricular AICD A. fib and a flutter, currently not on anticoagulation, paced Chronic anoxic encephalopathy with currently acute hepatic encephalopathy with high ammonia level Dysphasia s/p PEG tube Diabetes Chronic kidney disease Hypertension Lower extremity quadriplegia Anemia of chronic disease Pulmonary hypertension Plan: on sodium bicarbonate drip, on 4 pressors for BP support, Pulmonary following for ventilato care, very poor prognosis, D/w Hus[facility] today again, pt is made DNR, Cherrie want to wait one more day before deciding for comfort care lactulose enema, Rifaximin for hepatic encephalopathy on IV abx meropenem and IV flagyl d/c lovneox due to low eGFR , Prevacid for GI prophylaxis appreciate pulmonayr, Nephrology and cardiology help Subjective 24 Hr Interval Summary Free Text/Dictation remaints on multiple pressors, not making urine, still BP very low Exam/Review of Systems Vital Signs Vitals Vital Signs Date Time Temp Pulse Resp B/P Pulse Ox O2 Delivery O2 Flow Rate FiO2 10/09/16 17:17 78 24 98 100 10/09/16 16:00 98.9 85/69 Mechanical Ventilator Intake and Output 10/08/16 10/08/16 10/09/16 15:00 23:00 07:00 Intake Total 2068.240 ml 2335.550 ml 1815.240 ml Output Total 55 ml 265 ml 450 ml Balance 2013.240 ml 2070.550 ml 1365.240 ml Exam Constitutional: non-verbal ENMT: intubated Neck: supple Respiratory: crackles/rales, diminished breath sounds, other (Bilateral Coarse BS+) Cardiovascular: nl pulses, regular rate and rhythm Gastrointestinal: distended, other (obese ), soft Extremities: normal pulses Neurological: other (sedated on ventilator ) Results Result Diagram: 10/09/16 0530 10/09/16 1521 Results 24 hrs Laboratory Tests Test 10/08/16 21:08 10/09/16 01:14 10/09/16 05:19 10/09/16 05:30 Bedside Glucose 95 99 129 White Blood Count 15.0 H Red Blood Count 3.52 L Hemoglobin 10.0 L Hematocrit 31.2 L Mean Corpuscular Volume 88.6 Mean Corpuscular Hemoglobin 28.4 L Mean Corpuscular Hemoglobin Concent 32.1 Red Cell Distribution Width 18.5 H Platelet Count 247 Mean Platelet Volume 9.4 Neutrophils % 90.4 H Lymphocytes % 4.1 L Monocytes % 3.5 Eosinophils % 1.3 Basophils % 0.2 Nucleated Red Blood Cells % 0.3 H Neutrophils # (Manual) 13.6 H Lymphocytes # 0.6 L Monocytes # 0.5 Eosinophils # 0.2 Basophils # 0.0 Nucleated Red Blood Cells # 0.0 Sodium Level 114 *L Potassium Level 3.2 L Chloride Level 84 L Carbon Dioxide Level 15 L Anion Gap 18 H Blood Urea Nitrogen 64 H Creatinine 0.55 Glucose Level 310 #H Calcium Level 6.5 L Phosphorus Level 4.9 Magnesium Level 1.9 Test 10/09/16 10:59 10/09/16 13:42 10/09/16 15:21 Bedside Glucose 188 131 Sodium Level 115 *L Potassium Level 4.3 Chloride Level 88 L Carbon Dioxide Level 16 L Anion Gap 15 Blood Urea Nitrogen 68 H Creatinine 0.84 Glucose Level 113 # Calcium Level 6.9 L Medications Medications Current Medications Ondansetron HCl (Zofran Inj) 4 mg Q6H PRN IV NAUSEA AND/OR VOMITING Last administered on 09/24/16 11:53; Admin Dose 4 MG; Start 09/15/16 at 06:30 Acetaminophen (Tylenol Tab) 650 mg Q6H PRN PO PAIN LEVEL 1-3 OR FEVER Last administered on 09/16/16 20:10; Admin Dose 650 MG; Start 09/15/16 at 06:30 Acetaminophen (Tylenol Supp) [address] PAIN LEVEL 1-3 OR FEVER; Start 09/15/16 at 06:30 Amiodarone HCl (Cordarone) 200 mg DAILY GTB Last administered on 8/25/17at 10: 47; Admin Dose 200 MG; Start 09/15/16 at 09:00 Bisacodyl (Dulcolax Supp) [address] CONSTIPATION Last administered on 22:12; Admin Dose 10 MG; Start 09/15/16 at 06:30 Chlorhexidine Gluconate (Peridex) 15 ml BID MM Last administered on 10/09/16 10:46; Admin Dose 15 ML; Start 09/15/16 at 09:00 Docusate Sodium (Colace) 200 mg QHS PRN PO CONSTIPATION; Start 09/15/16 at 06:30 Lisinopril (Zestril) 2.5 mg BID GTB Last administered on 09/15/16 09:24; Admin Dose 2.5 MG; Start 09/15/16 at 09:00; Status Future Hold Diphenhydramine HCl (Benadryl) 25 mg Q6H PRN IV ITCHING Last administered on 13:56; Admin Dose 25 MG; Start 09/15/16 at 21:00 Miscellaneous Information 1 ea NOTE XX ; Start 09/17/16 at 22:45 Glucose (Glutose) 15 gm Q15M PRN PO DECREASED GLUCOSE; Start 09/17/16 at 22:45 Glucose (Glutose) 22.5 gm Q15M PRN PO DECREASED GLUCOSE; Start 09/17/16 at 22:45 Dextrose (D50w Syringe) 25 ml Q15M PRN IV DECREASED GLUCOSE Last administered on 10/08/16 17:38; Admin Dose 25 ML; Start 09/17/16 at 22:45 Dextrose (D50w Syringe) 50 ml Q15M PRN IV DECREASED GLUCOSE; Start 09/17/16 at 22:45 Glucagon (Glucagen) 1 mg Q15M PRN IM DECREASED GLUCOSE; Start 09/17/16 at 22:45 Glucose (Glutose) 15 gm Q15M PRN BUCCAL DECREASED GLUCOSE; Start 09/17/16 at 22: 45 Acetaminophen (Tylenol Tab) 650 mg Q4 PRN GTB PAIN AND OR ELEVATED TEMP Last administered on 09/23/16 00:59; Admin Dose 650 MG; Start 09/18/16 at 11:30 Albuterol (Proventil 0.083% (Neb)) 2.5 mg Q3H PRN NEB WHEEZING AND SOB; Start 09/18/16 at 11:30 Ascorbic Acid (Vitamin C) 500 mg BID PO Last administered on 10/09/16 10:48; Admin Dose 500 MG; Start 09/18/16 at 21:00 Folic Acid (Folic Acid) 1 mg DAILY GTB Last administered on 10/09/16 10:47; Admin Dose 1 MG; Start 09/19/16 at 09:00 Hydroxyzine HCl (Atarax) 25 mg Q8H PRN PO ITCHING Last administered on 21:23; Admin Dose 25 MG; Start 09/18/16 at 11:30 Lorazepam (Ativan) 1 mg Q8 PRN GTB ANXIETY Last administered on 09/22/16 09:17 ; Admin Dose 1 MG; Start 09/18/16 at 11:30 Magnesium Hydroxide (Milk Of Mag) 30 ml DAILY PRN GTB CONSTIPATION Last administered on 09/23/16 17:19; Admin Dose 30 ML; Start 09/18/16 at 11:30 Sodium Biphosphate/ Sodium Phosphate (Fleet Enema Pediatric) 66.[address] CONSTIPATION; Start 09/18/16 at 11:30 Lactobacillus Acidophilus/ Rhamnosus (Culturelle) 1 cap BID PO Last administered on 10/09/16 10:47; Admin Dose 1 CAP; Start 09/18/16 at 21:00 Lorazepam (Ativan) 1 mg Q6H PRN IV ANXIETY Last administered on 09/28/16 01:48 ; Admin Dose 1 MG; Start 09/19/16 at 18:30 Midodrine (Proamatine) 5 mg TID GTB Last administered on 10/09/16 10:47; Admin Dose 5 MG; Start 09/21/16 at 06:00 Ferrous Sulfate (Ferrous Sulfate (Ec)) 325 mg TID PO Last administered on 10:47; Admin Dose 325 MG; Start 09/21/16 at 10:00 Multivitamins 30 ml 30 ml DAILY GTB Last administered on 10/09/16 10:46; Admin Dose 30 ML; Start 09/21/16 at 10:30 Vancomycin HCl (Vancocin) 250 ml @ 125 mls/hr Q5D IVPB Last administered on 22:23; Admin Dose 125 MLS/HR; Start 09/21/16 at 22:00 Bacitracin (Bacitracin Oint (Ud)) 1 applic BID TOP Last administered on 10:46; Admin Dose 1 APPLIC; Start 09/23/16 at 21:00 Metoclopramide HCl (Reglan) 10 mg Q6 IV Last administered on 10/09/16 11:57; Admin Dose 10 MG; Start 09/24/16 at 18:00 IV Flush 10 ml 10 ml PRN PRN IV IV PROTOCOL; Start 09/25/16 at 16:00 Meropenem/Sodium Chloride (Merrem 500mg/50 ml(Pmx)) 50 ml @ 200 mls/hr Q12 IVPB Last administered on 10/09/16 10:46; Admin Dose 200 MLS/HR; Start at 21:00 Lansoprazole (Prevacid) 30 mg DAILY@06 GTB Last administered on 10/09/16 06:02 ; Admin Dose 30 MG; Start 09/28/16 at 06:00 Bumetanide 1 mg 1 mg DAILY IV Last administered on 09/30/16 08:32; Admin Dose 1 MG; Start 09/30/16 at 09:00; Status Future Hold Metronidazole (Flagyl 500 Mg (Pmx)) 100 ml @ 100 mls/hr Q8 IVPB Last administered on 10/09/16 13:46; Admin Dose 100 MLS/HR; Start 09/30/16 at 14:30 Insulin Aspart NOVOLOG *MODERATE* ALGORI... Q4 SC Last administered on 11:01; Admin Dose 4 UNIT; Start 09/30/16 at 17:00 Vasopressin/ Dextrose (Vasostrict/D5W) 60 ml @ 1.2 mls/hr Q12H IV Last administered on 10/08/16 20:48; Admin Dose 2.4 MLS/HR; Start 10/01/16 at 11:00 Polyethylene Glycol (Miralax) 17 gm DAILY PEG Last administered on 10/07/16 09 :20; Admin Dose 17 GM; Start 10/03/16 at 11:30 Lactulose (Enulose) 20 gm Q8 PO Last administered on 10/09/16 06:03; Admin Dose 20 GM; Start 10/03/16 at 14:00 Insulin Detemir (Levemir) 30 unit HS SC Last administered on 10/08/16 21:44; Admin Dose 30 UNIT; Start 10/04/16 at 21:00 Rifaximin (Xifaxan) 550 mg BID PO Last administered on 10/09/16 10:47; Admin Dose 550 MG; Start 10/04/16 at 09:00 Lactulose (Lactulose Enema) [address] Last administered on 10/09/16 11:57; Admin Dose 100 ML; Start 10/04/16 at 12:00 Enoxaparin Sodium 40 mg 40 mg DAILY SC Last administered on 10/09/16 10:45; Admin Dose 40 MG; Start 10/06/16 at 09:00 Caspofungin 50 mg/ Sodium Chloride 250 ml @ 250 mls/hr Q24H IVPB Last administered on 10/09/16 15:28; Admin Dose 250 MLS/HR; Start 10/06/16 at 15:00 Fentanyl 100 ml @ 1.5 mls/hr TITRATE IV Last administered on 10/08/16 15:42; Admin Dose 2.5 MLS/HR; Start 10/06/16 at 15:00 Norepinephrine 32 mg/Dextrose 250 ml @ 0.46 mls/hr TITRATE IV Last administered on 10/09/16 05:09; Admin Dose 14.06 MLS/HR; Start 10/06/16 at 17: 30 Sodium Bicarbonate/ Dextrose (Na Bicarb/D5W) 1,150 ml @ 50 mls/hr Q23H IV Last administered on 10/09/16 12:04; Admin Dose 50 MLS/HR; Start 10/07/16 at 13 :00 Miscellaneous Information DAILY XX Last administered on 10/08/16 09:19; Admin Dose 1 EA; Start 10/07/16 at 16:07 Dopamine HCl/ Dextrose 250 ml @ 8.295 mls/ hr TITRATE IV Last administered on 10/09/16 14:36; Admin Dose 62.213 MLS/HR; Start 10/08/16 at 06:30 Phenylephrine HCl/ Sodium Chloride (Jose Eduardo-Syneph/NS) 500 ml @ 18.75 mls/ hr TITRATE IV Last administered on 10/09/16 14:34; Admin Dose 56.25 MLS/HR; Start 10/08/16 at 07:11 Miscellaneous Information PLEASE SWITCH ALL DRIPS ... ONCE XX ; Start 10/08/16 at 09:00 Bumetanide 2 mg/ Sodium Chloride 25 ml @ 50 mls/hr Q4H IV Last administered on 10/09/16 15:28; Admin Dose 50 MLS/HR; Start 10/08/16 at 12:00 Sodium Chloride (Sodium Chloride Iv 3%) 500 ml @ 40 mls/hr [id number] IV ; Start 10/09/16 at 17:30; Stop 10/09/16 at 23:29 PAT RUSSELL MD Oct 09, 2016 17:40
--- NOTE | 2016-10-09 18:38 | PN ---
DATE: 10/09/2016 SUBJECTIVE DATA: No acute changes. The patient remains obtunded on multiple pressors and bicarbonate drip. Family at bedside. No fevers. LABORATORY AND DIAGNOSTIC DATA: WBC 15, hemoglobin 10, hematocrit 31.2, platelets 247,000, neutrophils 90.4. BUN 64, creatinine 0.55, carbon dioxide 15, sodium 114. Indwelling trach, Matthew, PICC line. MEDICATIONS: Antimicrobials: 1. Vancomycin. 2. Cancidas. 3. Meropenem. 4. Flagyl. PHYSICAL EXAMINATION: VITAL SIGNS: Temperature 98.8, pulse 84, respirations 24, blood pressure 76/44, saturation 96 on 100 percent FiO2. GENERAL: This is a chronically ill appearing, middle-aged woman who is obtunded, in no distress. HEENT: Head atraumatic, normocephalic. Sclerae anicteric. Buccal mucosa dry. NECK: With tracheostomy. CHEST: Rise symmetrical. Breath sounds with bilateral rhonchi, diminished bases. HEART: S1, S2. ABDOMEN: Distended. Bowel sounds absent. EXTREMITIES: Bilateral edema. SKIN: Anasarca. ASSESSMENT: 1. Severe sepsis with shock and multisystem organ failure. 2. Healthcare-acquired pneumonia. 3. Acute on chronic respiratory failure. 4. Decompensated congestive heart failure. 5. Severe cardiomyopathy. 6. Urinary tract infection. 7. Recurrent ascites, status post paracentesis. 8. Acute on chronic kidney disease. 9. History of muscle dystrophy. 10. Severe anasarca. PLAN: The patient is to doing poorly on broad-spectrum antibiotics, on multiple pressors. Continue present care. CODE STATUS: DO NOT RESUSCITATE. Dictated By: Anita Ingram NP /reynaldo/sandee /Document#: [id number]
[2016-10-09] MEDS: INSULIN DETEMIR [LEVEMIR] 3ML CART SC SCH (21:55)
[2016-10-10] VITALS (15 sets, daily range): BP systolic 54–88; BP diastolic 15–67; PULSE 0–72; RESP 0–24
[2016-10-10] MEDS: ALBUTEROL 18 GM INHALER INH SCH ×3 (01:00→08:57)
[2016-10-10] MEDS: INSULIN ASPART [NOVOLOG] 3 ML PEN SC SCH ×2 (01:00→05:00)
[2016-10-10] MEDS: BUMETANIDE 2 MG in SOD CHLORIDE 0.9% 25 ML IV SCH ×3 (04:00)
[2016-10-10] MEDS: LANSOPRAZOLE 30 MG CAP GTB SCH (06:57)
[2016-10-10] MEDS: metroNIDAZOLE 500 MG/NS (PMX) 100 ML IVPB SCH (06:57)
[2016-10-10] MEDS: METOCLOPRAMIDE 10 MG INJ IV SCH ×2 (06:58)
[2016-10-10] MEDS: LACTULOSE 30ML CUP PO SCH (06:58)
[2016-10-10] MEDS: LACTULOSE ENEMA 1,000 ML BTL PR SCH ×2 (06:59)
--- NOTE | 2016-10-10 07:36 | PN ---
DATE: 10/10/2016 SUBJECTIVE DATA: The patient is critically ill, on 5 pressors. The patient is unlikely to survive. Overnight, patient noted to be oozing from multiple sites. Patient is obtunded, noted to have arrhythmias, no other events noted. OBJECTIVE DATA: VITAL SIGNS: Blood pressure is 80/58, respiration 11, pulse 73. I's and O's: Patient had 3 L in, 1.3 L out. HEENT: Head is normocephalic. NECK: Supple. HEART: Regular rate. LUNGS: Show diminished breath sounds at the base. ABDOMEN: Soft, nontender to palpation. No rebound or guarding. EXTREMITIES: Negative for clubbing, cyanosis. Positive diffuse anasarca. DERMATOLOGIC: Clean. No new rashes. MUSCULOSKELETAL: No joint effusion. NEUROLOGIC: The patient is obtunded. No change in exam. LABORATORY AND DIAGNOSTIC DATA: From 10/09 was reviewed. 10/10 laboratory data is pending. ASSESSMENT AND PLAN: 1. Aneuric acute kidney injury on top of chronic kidney disease with previous baseline creatinine of 0.6 mg/dL. Patient's creatinine is grossly overestimating her estimated glomerular filtration rate, as the patient has significant muscular atrophy. The patient is not a candidate for hemodialysis due to hemodynamic instability, as well as the patient's not wanting dialysis. We will continue to monitor. 2. Hyponatremia. The patient is status post 3 percent sodium chloride with minimal improvement. We will follow up sodium levels. 3. Shock. Etiology is multifactorial. Patient remains on multiple pressors and broad-spectrum antibiotics. 4. Mineral bone disorder. Monitor calcium and phosphorus levels. 5. Metabolic acidosis. Patient is on bicarbonate drip. Continue to monitor. 6. Anemia. Monitor H and H levels. 7. Ventilatory-dependent respiratory failure. Vent settings and ABGs have been reviewed. 8. Acute decompensated heart failure. Continue current treatment plan. Follow up with Cardiology. 9. Sinus arrhythmia. 10. Dysphagia, status post percutaneous endoscopic gastrostomy. 11. Muscular dystrophy. 12. Acute encephalopathy. Please note, I spent over 30 minutes of critical care time with this patient. Please note, the patient has an extremely poor prognosis, unlikely to survive. Dictated By: Raymon Giordano DO /reynaldo/willy /Document#: [id number]
--- NOTE | 2016-10-10 08:34 | PN ---
Date/Time of Note Date/Time of Note DATE: 10/10/16 TIME: 08:32 Assessment/Plan VTE Prophylaxis VTE Prophylaxis Intervention: other Lines/Catheters IV Catheter Type (from [facility]): PICC Line Central line still needed: Yes Urinary Cath still in place: Yes Reason Cath still needed: skin wounds contaminated by urine Assessment/Plan Problems: (1) Muscular dystrophy Status: Chronic Comment: She is in a chronically debilitated state unable to manage her affairs. She is now on DNR status and is quite likely the family last to make her comfort measures only today. We will do her best to maintain her comfort and dignity (2) Respiratory failure, chronic neuromuscular Status: Chronic Comment: Maintenance supported by ventilator. (3) Anemia Status: Chronic Comment: Noted. No aggressive intervention. (4) Sepsis Status: Acute Comment: She remains on antibiotics for the time being. As her stated treatment goals change we may alter her medication therapeutics Qualifiers: Sepsis type: sepsis due to unspecified organism Qualified Code: A41.9 - Sepsis, due to unspecified organism (5) Systolic and diastolic CHF, chronic Status: Chronic Comment: Stable on treatment. (6) Diabetes mellitus type 2 in obese Status: Chronic Comment: Adequate control despite the extreme status (7) Altered level of consciousness Status: Acute Comment: She is unresponsive. This is partially due to the underlying multiple medical problems chronic and acute as well as a fentanyl drip. Continue to maintain her comfort maximally Subjective 24 Hr Interval Summary Free Text/Dictation Patient is ventilated and on sedatives nonresponsive Subjective hx not possible: pt non-verbal, pt critical status Exam/Review of Systems Vital Signs Vitals Vital Signs Date Time Temp Pulse Resp B/P Pulse Ox O2 Delivery O2 Flow Rate FiO2 10/10/16 08:07 100 10/10/16 05:00 75 24 98 10/09/16 20:30 80/58 10/09/16 19:45 99.0 Mechanical Ventilator Intake and Output 10/09/16 10/09/16 10/10/16 15:00 23:00 07:00 Intake Total 2161.715 ml 1330.140 ml 2647.80 ml Output Total 945 ml 100 ml 265 ml Balance 1216.715 ml 1230.140 ml 2382.80 ml Exam Constitutional: non-verbal Respiratory: crackles/rales Cardiovascular: nl pulses, regular rate and rhythm Results Result Diagram: 10/09/16 0530 10/09/16 1521 Results 24 hrs Laboratory Tests Test 10/09/16 10:59 10/09/16 13:42 10/09/16 15:21 10/09/16 18:08 Bedside Glucose 188 131 185 Sodium Level 115 *L Potassium Level 4.3 Chloride Level 88 L Carbon Dioxide Level 16 L Anion Gap 15 Blood Urea Nitrogen 68 H Creatinine 0.84 Glucose Level 113 # Calcium Level 6.9 L Test 10/09/16 21:51 Bedside Glucose 142 Medications Medications Current Medications Ondansetron HCl (Zofran Inj) 4 mg Q6H PRN IV NAUSEA AND/OR VOMITING Last administered on 09/24/16 11:53; Admin Dose 4 MG; Start 09/15/16 at 06:30 Acetaminophen (Tylenol Tab) 650 mg Q6H PRN PO PAIN LEVEL 1-3 OR FEVER Last administered on 09/16/16 20:10; Admin Dose 650 MG; Start 09/15/16 at 06:30 Acetaminophen (Tylenol Supp) 650 mg Q6H PRN [place] PAIN LEVEL 1-3 OR FEVER; Start 09/15/16 at 06:30 Amiodarone HCl (Cordarone) 200 mg DAILY GTB Last administered on 10/09/16 10: 47; Admin Dose 200 MG; Start 09/15/16 at 09:00 Bisacodyl (Dulcolax Supp) 10 mg Q24H PRN [place] CONSTIPATION Last administered on 22:12; Admin Dose 10 MG; Start 09/15/16 at 06:30 Chlorhexidine Gluconate (Peridex) 15 ml BID MM Last administered on 10/09/16 21:49; Admin Dose 15 ML; Start 09/15/16 at 09:00 Docusate Sodium (Colace) 200 mg QHS PRN PO CONSTIPATION; Start 09/15/16 at 06:30 Lisinopril (Zestril) 2.5 mg BID GTB Last administered on 09/15/16 09:24; Admin Dose 2.5 MG; Start 09/15/16 at 09:00; Status Future Hold Diphenhydramine HCl (Benadryl) 25 mg Q6H PRN IV ITCHING Last administered on 13:56; Admin Dose 25 MG; Start 09/15/16 at 21:00 Miscellaneous Information 1 ea NOTE XX ; Start 09/17/16 at 22:45 Glucose (Glutose) 15 gm Q15M PRN PO DECREASED GLUCOSE; Start 09/17/16 at 22:45 Glucose (Glutose) 22.5 gm Q15M PRN PO DECREASED GLUCOSE; Start 09/17/16 at 22:45 Dextrose (D50w Syringe) 25 ml Q15M PRN IV DECREASED GLUCOSE Last administered on 10/08/16 17:38; Admin Dose 25 ML; Start 09/17/16 at 22:45 Dextrose (D50w Syringe) 50 ml Q15M PRN IV DECREASED GLUCOSE; Start 09/17/16 at 22:45 Glucagon (Glucagen) 1 mg Q15M PRN IM DECREASED GLUCOSE; Start 09/17/16 at 22:45 Glucose (Glutose) 15 gm Q15M PRN BUCCAL DECREASED GLUCOSE; Start 09/17/16 at 22: 45 Acetaminophen (Tylenol Tab) 650 mg Q4 PRN GTB PAIN AND OR ELEVATED TEMP Last administered on 09/23/16 00:59; Admin Dose 650 MG; Start 09/18/16 at 11:30 Albuterol (Proventil 0.083% (Neb)) 2.5 mg Q3H PRN NEB WHEEZING AND SOB; Start 09/18/16 at 11:30 Ascorbic Acid (Vitamin C) 500 mg BID PO Last administered on 10/09/16 21:49; Admin Dose 500 MG; Start 09/18/16 at 21:00 Folic Acid (Folic Acid) 1 mg DAILY GTB Last administered on 10/09/16 10:47; Admin Dose 1 MG; Start 09/19/16 at 09:00 Hydroxyzine HCl (Atarax) 25 mg Q8H PRN PO ITCHING Last administered on 21:23; Admin Dose 25 MG; Start 09/18/16 at 11:30 Lorazepam (Ativan) 1 mg Q8 PRN GTB ANXIETY Last administered on 09/22/16 09:17 ; Admin Dose 1 MG; Start 09/18/16 at 11:30 Magnesium Hydroxide (Milk Of Mag) 30 ml DAILY PRN GTB CONSTIPATION Last administered on 09/23/16 17:19; Admin Dose 30 ML; Start 09/18/16 at 11:30 Sodium Biphosphate/ Sodium Phosphate (Fleet Enema Pediatric) 66.6 ml DAILY PRN [place] CONSTIPATION; Start 09/18/16 at 11:30 Lactobacillus Acidophilus/ Rhamnosus (Culturelle) 1 cap BID PO Last administered on 10/09/16 21:49; Admin Dose 1 CAP; Start 09/18/16 at 21:00 Lorazepam (Ativan) 1 mg Q6H PRN IV ANXIETY Last administered on 09/28/16 01:48 ; Admin Dose 1 MG; Start 09/19/16 at 18:30 Midodrine (Proamatine) 5 mg TID GTB Last administered on 10/09/16 21:48; Admin Dose 5 MG; Start 09/21/16 at 06:00 Ferrous Sulfate (Ferrous Sulfate (Ec)) 325 mg TID PO Last administered on 21:49; Admin Dose 325 MG; Start 09/21/16 at 10:00 Multivitamins 30 ml 30 ml DAILY GTB Last administered on 10/09/16 10:46; Admin Dose 30 ML; Start 09/21/16 at 10:30 Vancomycin HCl (Vancocin) 250 ml @ 125 mls/hr Q5D IVPB Last administered on 22:23; Admin Dose 125 MLS/HR; Start 09/21/16 at 22:00 Bacitracin (Bacitracin Oint (Ud)) 1 applic BID TOP Last administered on 21:49; Admin Dose 1 APPLIC; Start 09/23/16 at 21:00 Metoclopramide HCl (Reglan) 10 mg Q6 IV Last administered on 10/10/16 06:58; Admin Dose 10 MG; Start 09/24/16 at 18:00 IV Flush 10 ml 10 ml PRN PRN IV IV PROTOCOL; Start 09/25/16 at 16:00 Meropenem/Sodium Chloride (Merrem 500mg/50 ml(Pmx)) 50 ml @ 200 mls/hr Q12 IVPB Last administered on 10/09/16 21:48; Admin Dose 200 MLS/HR; Start at 21:00 Lansoprazole (Prevacid) 30 mg DAILY@06 GTB Last administered on 10/10/16 06:57 ; Admin Dose 30 MG; Start 09/28/16 at 06:00 Bumetanide 1 mg 1 mg DAILY IV Last administered on 09/30/16 08:32; Admin Dose 1 MG; Start 09/30/16 at 09:00; Status Future Hold Metronidazole (Flagyl 500 Mg (Pmx)) 100 ml @ 100 mls/hr Q8 IVPB Last administered on 10/10/16 06:57; Admin Dose 100 MLS/HR; Start 09/30/16 at 14:30 Insulin Aspart NOVOLOG *MODERATE* ALGORI... Q4 SC Last administered on 05:00; Admin Dose 2 UNIT; Start 09/30/16 at 17:00 Vasopressin/ Dextrose (Vasostrict/D5W) 60 ml @ 1.2 mls/hr Q12H IV Last administered on 10/09/16 18:39; Admin Dose 2.4 MLS/HR; Start 10/01/16 at 11:00 Polyethylene Glycol (Miralax) 17 gm DAILY PEG Last administered on 10/07/16 09 :20; Admin Dose 17 GM; Start 10/03/16 at 11:30 Lactulose (Enulose) 20 gm Q8 PO Last administered on 10/10/16 06:58; Admin Dose 20 GM; Start 10/03/16 at 14:00 Insulin Detemir (Levemir) 30 unit HS SC Last administered on 10/09/16 21:55; Admin Dose 30 UNIT; Start 10/04/16 at 21:00 Rifaximin (Xifaxan) 550 mg BID PO Last administered on 10/09/16 21:49; Admin Dose 550 MG; Start 10/04/16 at 09:00 Lactulose 100 ml 100 ml Q6 [place] Last administered on 10/10/16 06:59; Admin Dose 100 ML; Start 10/04/16 at 12:00 Caspofungin 50 mg/ Sodium Chloride 250 ml @ 250 mls/hr Q24H IVPB Last administered on 10/09/16 15:28; Admin Dose 250 MLS/HR; Start 10/06/16 at 15:00 Fentanyl 100 ml @ 1.5 mls/hr TITRATE IV Last administered on 10/08/16 15:42; Admin Dose 2.5 MLS/HR; Start 10/06/16 at 15:00 Norepinephrine 32 mg/Dextrose 250 ml @ 0.46 mls/hr TITRATE IV Last administered on 10/09/16 05:09; Admin Dose 14.06 MLS/HR; Start 10/06/16 at 17: 30 Sodium Bicarbonate/ Dextrose (Na Bicarb/D5W) 1,150 ml @ 50 mls/hr Q23H IV Last administered on 10/09/16 12:04; Admin Dose 50 MLS/HR; Start 10/07/16 at 13 :00 Miscellaneous Information DAILY XX Last administered on 10/08/16 09:19; Admin Dose 1 EA; Start 10/07/16 at 16:07 Dopamine HCl/ Dextrose 250 ml @ 8.295 mls/ hr TITRATE IV Last administered on 10/09/16 19:00; Admin Dose 8.295 MLS/HR; Start 10/08/16 at 06:30 Phenylephrine HCl/ Sodium Chloride (Jose Eduardo-Syneph/NS) 500 ml @ 18.75 mls/ hr TITRATE IV Last administered on 10/09/16 14:34; Admin Dose 56.25 MLS/HR; Start 10/08/16 at 07:11 Miscellaneous Information PLEASE SWITCH ALL DRIPS ... ONCE XX ; Start 10/08/16 at 09:00 Bumetanide/Sodium Chloride (Bumex/NS) 25 ml @ 50 mls/hr Q4H IV Last administered on 10/10/16 04:00; Admin Dose 50 MLS/HR; Start 10/08/16 at 12:00 TOMER BONILLA MD Oct 10, 2016 08:34
[2016-10-10] MEDS: LORAZEPAM 2 MG INJ IV PRN (09:25)
[2016-10-10] MEDS ORDERED: morphine 2 MG INJ IV ONE (09:30)
[2016-10-10] MEDS ORDERED: morphine (DRIP) 100 MG/100 ML 100 ML IV SCH (09:30)
[2016-10-10] MEDS: SODIUM BICARBONATE (IV ADD) 150 MEQ in DEXTROSE 5% 1,000 ML IV SCH (09:34)
--- NOTE | 2016-10-10 09:38 | CONS ---
Date/Time of Note Date/Time of Note DATE: 10/10/16 TIME: 09:36 Assessment/Plan Assessment/Plan Chief Complaint/Hosp Course ID PROGRESS NOTE CURRENT ABX 24H INTERVAL SUMMARY * The patient is new to me, transitioned to comfort measures only, ABX have been DC * MICRO 09/28: (+)Yeast UTI => Gl[place], BCx (-), C.Diff (-), repeat Urine (-) PHYSICAL EXAMINATION: GENERAL: Overweight F, lying in bed, obtunded, looks comfortable ID ASSESSMENT: 50 yo F admit with: 1. Severe sepsis with shock and multisystem organ failure. 2. Healthcare-acquired pneumonia. 3. Acute on chronic respiratory failure. 4. Decompensated congestive heart failure. 5. Severe cardiomyopathy. 6. Urinary tract infection. 7. Recurrent ascites, status post paracentesis. 8. Acute on chronic kidney disease. 9. History of muscle dystrophy. 10. Severe anasarca. (-) MRSA Nares INVASIVES: PIV ABX ALLERGY: KNDA CURRENT ABX=>Day # ABX DC'd ID PLAN 1. Per family, the patient has transitioned to comfort measures per poor prognosis, end of life pending. 2. Thank you, will sign off . Problems: Consultation Date/Type/Reason Admit Date/Time Sep 15, 2016 at 01:59 Initial Consult Date 09/18/16 Type of Consultation: ID Exam/Review of Systems Vital Signs Vitals Vital Signs Date Time Temp Pulse Resp B/P Pulse Ox O2 Delivery O2 Flow Rate FiO2 10/10/16 08:58 69 24 100 100 10/09/16 20:30 80/58 10/09/16 19:45 99.0 Mechanical Ventilator Intake and Output 10/09/16 10/09/16 10/10/16 15:00 23:00 07:00 Intake Total 2161.715 ml 1330.140 ml 2647.80 ml Output Total 945 ml 100 ml 265 ml Balance 1216.715 ml 1230.140 ml 2382.80 ml Results Result Diagram: 10/09/16 0530 10/09/16 1521 Results 24 hrs Laboratory Tests Test 10/09/16 10:59 10/09/16 13:42 10/09/16 15:21 10/09/16 18:08 Bedside Glucose 188 131 185 Sodium Level 115 *L Potassium Level 4.3 Chloride Level 88 L Carbon Dioxide Level 16 L Anion Gap 15 Blood Urea Nitrogen 68 H Creatinine 0.84 Glucose Level 113 # Calcium Level 6.9 L Test 10/09/16 21:51 Bedside Glucose 142 Medications Medications Current Medications Lorazepam (Ativan) 1 mg Q8 PRN GTB ANXIETY Last administered on 09/22/16 09:17 ; Admin Dose 1 MG; Start 09/18/16 at 11:30 Lorazepam 1 mg 1 mg Q6H PRN IV ANXIETY Last administered on 10/10/16 09:25; Admin Dose 1 MG; Start 09/19/16 at 18:30 Fentanyl 100 ml @ 1.5 mls/hr TITRATE IV Last administered on 10/08/16 15:42; Admin Dose 2.5 MLS/HR; Start 10/06/16 at 15:00 Sodium Bicarbonate 150 meq/Dextrose 1,150 ml @ 50 mls/hr Q23H IV Last administered on 10/09/16 12:04; Admin Dose 50 MLS/HR; Start 10/07/16 at 13:00 Morphine Sulfate/ Sodium Chloride (morphine) 100 ml @ 1 mls/hr TITRATE IV ; Start 10/10/16 at 09:30 DONALDO MURRAY NP Oct 10, 2016 09:38
--- NOTE | 2016-10-10 11:30 | DES ---
Date/Time of Note Date/Time of Note DATE: 10/10/16 TIME: 11:25 Discharge/ Summary Admission/Discharge Info Admit Date/Time Sep 15, 2016 at 01:59 Discharge Date/Time October 10 2016 at 10:26 AM Final Diagnosis Sepsis syndrome due to pneumonia; ocular dystrophy; chronic respiratory failure ventilator dependent with tracheostomy; hypothyroidism; hypertension; diabetes mellitus type II; systolic congestive heart failure with AICD Preliminary Cause of Cardiopulmonary arrest secondary to sepsis; cardiomyopathy with CHF Hx of Present Illness his is a 50-year-old female with past medical history of quadriplegia, muscular dystrophy, trach/vent dependent respiratory failure, anemia, ascites, dysphagia status post PEG tube feeding, hypertension, anxiety, diabetes mellitus, GERD, cardiomyopathy with EF of 30% to 35%, AICD who was sent from [facility] for hypoxia and AMS. Patient is not able to provide any history in the section formation of the does not from chart review and from the ER report. Reportedly her oxygen saturation was 80 at the SNF. When she presented to the ER, O2 sat was 100% on 100% FiO2. Chest x-ray shows diffuse bilateral opacity, improved on the right but worse on the left and probable small bilateral pleural effusion. Laboratory shows a potassium of 6.4 , WBC 12.3, initial lactate 2.2 with repeat 1.0, BUN 119 with a creatinine of 0.84 and glucose of 267. I was at the bedside when the RT was suctioning the trach and noted thick bloody aspirate. Patient appears lethargic. Patient was last admitted here in February of this year after she was found to have abdominal distention and ascites and was transferred to [facility] for paracentesis. Hospital Course ID PROGRESS NOTE CURRENT ABX 24H INTERVAL SUMMARY * The patient is new to me, transitioned to comfort measures only, ABX have been DC * MICRO 09/28: (+)Yeast UTI => Gl[place], BCx (-), C.Diff (-), repeat Urine (-) PHYSICAL EXAMINATION: GENERAL: Overweight F, lying in bed, obtunded, looks comfortable ID ASSESSMENT: 50 yo F admit with: 1. Severe sepsis with shock and multisystem organ failure. 2. Healthcare-acquired pneumonia. 3. Acute on chronic respiratory failure. 4. Decompensated congestive heart failure. 5. Severe cardiomyopathy. 6. Urinary tract infection. 7. Recurrent ascites, status post paracentesis. 8. Acute on chronic kidney disease. 9. History of muscle dystrophy. 10. Severe anasarca. (-) MRSA Nares INVASIVES: PIV ABX ALLERGY: KNDA CURRENT ABX=>Day # ABX DC'd ID PLAN 1. Per family, the patient has transitioned to comfort measures per poor prognosis, end of life pending. 2. Thank you, will sign off .Assessment/Plan Problems: (1) Muscular dystrophy Status: Chronic Comment: She is in a chronically debilitated state unable to manage her affairs. She is now on DNR status and is quite likely the family last to make her comfort measures only today. We will do her best to maintain her comfort and dignity (2) Respiratory failure, chronic neuromuscular Status: Chronic Comment: Maintenance supported by ventilator. (3) Anemia Status: Chronic Comment: Noted. No aggressive intervention. (4) Sepsis Status: Acute Comment: She remains on antibiotics for the time being. As her stated treatment goals change we may alter her medication therapeutics Qualifiers: Sepsis type: sepsis due to unspecified organism Qualified Code: A41.9 - Sepsis, due to unspecified organism (5) Systolic and diastolic CHF, chronic Status: Chronic Comment: Stable on treatment. (6) Diabetes mellitus type 2 in obese Status: Chronic Comment: Adequate control despite the extreme status (7) Altered level of consciousness Status: Acute Comment: She is unresponsive. This is partially due to the underlying multiple medical problems chronic and acute as well as a fentanyl drip. Continue to maintain her comfort maximally Subjective 24 Hr Interval Summary Free Text/Dictation Patient is ventilated and on sedatives nonresponsive Subjective hx not possible: pt non-verbal, pt critical status Patient had been in extremis on multiple pressors. The family had opted to keep the patient as comfortable as possible. The patient due to the underlying severity of illness with sepsis and pulmonary collapse on their own after the initiation of full comfort measures at 9 AM. Patient as noted above at 1026. Family at bedside and fully notified. Pending Labs/Cultures Laboratory Tests Test 10/09/16 13:42 10/09/16 15:21 10/09/16 18:08 10/09/16 21:51 Bedside Glucose 131mg/dL (70-220) 185mg/dL (70-220) 142mg/dL (70-220) Sodium Level 115mmol/L (135-144) Potassium Level 4.3mmol/L (3.5-5.1) Chloride Level 88mmol/L (97-110) Carbon Dioxide Level 16mmol/L (21-31) Anion Gap 15 (8-16) Blood Urea Nitrogen 68mg/dl (7-20) Creatinine 0.84mg/dl (0.44-1.00) Glucose Level 113mg/dl (70-220) Calcium Level 6.9mg/dl (8.4-10.2) TOMER BONILLA MD Oct 10, 2016 11:30
== END 2016-10-10 10:26 | disposition expired | DRG 870 ==
LOC: E/R 23:42 → TEL 09-15 01:59 → ICU 09-25 07:04
PROVIDERS: ADMIT Internal Medicine; ATTEND Internal Medicine
PROC: 5A1955Z Respiratory Ventilation, Greater than 96 Consecutive Hours (ICD-10-PCS; principal; 2016-09-14)
PROC: 0W9G3ZX Drainage of Peritoneal Cavity, Percutaneous Approach, Diagnostic (ICD-10-PCS; 2016-09-20)
PROC: 02HV33Z Insertion of Infusion Device into Superior Vena Cava, Percutaneous Approach (ICD-10-PCS; 2016-09-25)
PROC: 0W963ZX Drainage of Neck, Percutaneous Approach, Diagnostic (ICD-10-PCS; 2016-09-28)
DX: A41.9 Sepsis, unspecified organism (principal); J96.20 Acute and chronic respiratory failure, unspecified whether with hypoxia or hypercapnia; G82.50 Quadriplegia, unspecified; J18.9 Pneumonia, unspecified organism; G93.41 Metabolic encephalopathy; I50.43 Acute on chronic combined systolic (congestive) and diastolic (congestive) heart failure; R65.21 Severe sepsis with septic shock; R57.0 Cardiogenic shock; G93.49 Other encephalopathy; I13.0 Hypertensive heart and chronic kidney disease with heart failure and stage 1 through stage 4 chronic kidney disease, or unspecified chronic kidney disease; I48.92 Unspecified atrial flutter; I42.9 Cardiomyopathy, unspecified; R18.8 Other ascites; G71.0 Muscular dystrophy; N39.0 Urinary tract infection, site not specified; E87.0 Hyperosmolality and hypernatremia; K94.23 Gastrostomy malfunction; B37.41 Candidal cystitis and urethritis; E87.4 Mixed disorder of acid-base balance; Z99.11 Dependence on respirator [ventilator] status; Z68.41 Body mass index [BMI] 40.0-44.9, adult; I27.2 Other secondary pulmonary hypertension; I46.9 Cardiac arrest, cause unspecified; I48.0 Paroxysmal atrial fibrillation; I49.9 Cardiac arrhythmia, unspecified; R13.10 Dysphagia, unspecified; K72.90 Hepatic failure, unspecified without coma; E87.5 Hyperkalemia; E11.22 Type 2 diabetes mellitus with diabetic chronic kidney disease; E83.9 Disorder of mineral metabolism, unspecified; E03.9 Hypothyroidism, unspecified; E11.649 Type 2 diabetes mellitus with hypoglycemia without coma; E11.51 Type 2 diabetes mellitus with diabetic peripheral angiopathy without gangrene; E66.9 Obesity, unspecified; N18.9 Chronic kidney disease, unspecified; Y95 Nosocomial condition; R79.89 Other specified abnormal findings of blood chemistry; R19.7 Diarrhea, unspecified; R53.81 Other malaise; D64.9 Anemia, unspecified; D63.8 Anemia in other chronic diseases classified elsewhere; Y83.8 Other surgical procedures as the cause of abnormal reaction of the patient, or of later complication, without mention of misadventure at the time of the procedure; M62.81 Muscle weakness (generalized); Z86.718 Personal history of other venous thrombosis and embolism; Z95.0 Presence of cardiac pacemaker; Z66 Do not resuscitate
CPT/HCPCS: 36415; 36430; 36569; 36600; 71010; 74000; 74176; 76775; 76937; 80048; 80053; 80202; 81001; 81003; 82042; 82043; 82140; 82150; 82270; 82803; 82945; 82962; 83036; 83540; 83605; 83615; 83735; 83880; 83986; 84100; 84155; 84157; 84300; 84484; 85014; 85018; 85025; 85610; 85730; 86850; 86900; 86901; 86920; 87040; 87070; 87075; 87081; 87086; 87102; 87116; 89051; 93005; 93306; 93970; 94002; 94003; 94640; 96374; 96375; J1250; J0282; J0692; J0885; J1200; J1205; J1265; J1650; J1815; J2060; J2185; J2270; J2405; J2765; J2916; J3010; J3370; J3480; J7030; J7040; J7050; J7060; J7070; P9016; P9045; P9047